=== PATIENT | male | born 1945 | race Caucasian/White ===

== ENCOUNTER 2021-05-19 05:37 | Observation (INO) ==
--- NOTE | 2021-05-19 06:04 | Emergency Department Note ---
History of Present Illness General Chief complaint: Shortness of Breath/Dyspnea Stated complaint: SHORT OF BREATH Time Seen by Provider: 05/19/21 05:48 Source: patient Mode of arrival: EMS Limitations: no limitations History of Present Illness Provider complaint: Shortness of breath Associated symptoms: + cough, + malaise and + shortness of breath; no chest pain, no headaches, no loss of appetite or no syncope Treatments prior to arrival: none This is a 76-year-old male presents emergency department via EMS due to concern for increased shortness of breath. Patient states over the last several weeks he noticed increased shortness of breath with exertion. He states over the last several days he is also noted that he cannot lay flat to sleep as it makes his breathing worse. He denies any accompanying chest pain or prior similar events. Denies any recent URI symptoms, fevers or chills. Patient states he does have cough although it is mostly dry. Patient states he is a former smoker, however does not need to wear oxygen. Patient states he has been more fatigued recently to particularly when he gets out of breath, he feels that he has no energy. Kristal eid denies any syncopal events, although does admit to lightheadedness with the symptoms in addition. Patient denies any palpitations. Patient states he was referred to cardiology by his PCP. His PCP is through the [place] system. He states he does undergo almost annual echoes due to an abnormal heart valve that they are watching. He does not know the results of his last echo which she believes was performed about a month ago. Patient states he has previously had a stress test although cannot recall when that was, has never had a cardiac catheterization. Patient states he does take medication for diabetes, although does not check his blood sugar daily. EMS reported patient was markedly d yspneic and diaphoretic on their arrival, oxygen saturation however was in the low 90s, they did apply 2 L for comfort and patient reported feeling markedly improved with this. Pt seen during a time of high acuity and national emergency pandemic while wearing PPE. Home Medications Medication Instructions Recorded Confirmed Type aspirin 81 mg tablet,delayed 81 mg PO QAM 09/18/18 05/19/21 History release (Aspirin Low Dose) cetirizine 5 mg tablet 5 mg PO QAM 09/20/18 05/19/21 History cholecalciferol (vitamin D3) 50 2,000 unit PO QAM 09/20/18 05/19/21 History mcg (2,000 unit) capsule pravastatin 40 mg tablet 40 mg PO HS 09/20/18 05/19/21 History alogliptin 12.5 mg tablet 12.5 mg PO DAILY 05/19/21 05/19/21 History glipizide 5 mg tablet 5 mg PO BID 05/19/21 05/19/21 History lisinopril 5 mg tablet 5 mg PO DAILY 05/19/21 05/19/21 History metoprolol tartrate 50 mg tablet 25 mg PO BID 05/19/21 05/19/21 History (Lopressor) potassium chloride 20 mEq 20 meq PO BID 05/19/21 05/19/21 History tablet,extended release amlodipine 5 mg tablet 5 mg PO QAM #0 tab 05/20/21 05/19/21 Rx amlodipine 5 mg tablet 10 mg PO QPM #0 tab 05/20/21 05/19/21 Rx furosemide 20 mg tablet (Lasix) 20 mg PO DAILY PRN #20 tab 05/20/21 Rx Allergies Allergy/AdvReac Type Severity Reaction Status Date / Time Influenza Virus Vaccines Allergy Unknown Verified 10/16/18 08:10 atorvastatin AdvReac Cramping Verified 10/16/18 08:10 of the Muscles simvastatin AdvReac Cramping Verified 10/16/18 08:10 of the Muscles Past Med/Surg History Medical History (Updated 05/21/21 @ 14:13 by Stacy Moscoso DO) Cervical pain (neck) CKD (chronic kidney disease) stage 3, GFR 30-59 ml/min Diabetes mellitus, type II Hyperlipidemia Hypertension Nephrolithiasis Osteoarthritis Vision loss of left eye Surgical History H/O eye surgery RETINA REPAIR IN BOTH EYES Hx of cystoscopy STENT INSERTION AND NOW HAS CHRONIC PAIN IN LEFT LEG SINCE SURGERY Family History Father Congestive heart failure Mother Cancer Social History Smoking Status: Never smoker Second Hand Exposure: No; Hx Alcohol Use: No Hx Substance Use: No Preferred Language: Vincentian Communication Ability: Effective Visual Impairment: Partially Limited Kennel Keeper Required: No Beliefs That Will Affect Care: None marital status: Current Living Situation: Spouse current occupational status: retired Feels Safe at Home: Yes Assistive Devices: Glasses Review of Systems A total of 10 systems reviewed and were otherwise negative All systems reviewed & are unremarkable except as noted in HPI & below Physical Exam Vital Signs Vital Signs - 24 hr 05/19/21 05:43 05/19/21 05:44 05/19/21 08:00 Temperature 36.6 C 37.2 C Temperature Source Oral Oral Pulse Rate 75 85 Pulse Rate [Finger] 76 Pulse Rate from SpO2 Sensor 75 Pulse Rhythm Regular Pulse Strength Normal Respiratory Rate 21 20 18 Respiratory Effort / Characteristics Non-Labored Spontaneous Respiratory Depth Normal Respiratory Pattern Regular Blood Pressure 161/85 H 161/85 H Blood Pressure [Left Arm] 149/98 H Blood Pressure Mean 110 110 Blood Pressure Mean [Left Arm] 115 Blood Pressure Position Sitting Pulse Oximetry 95 94 95 Oxygen Delivery Method Room Air Room Air Sepsis Recent Fever Within 48 Hours No Sepsis New/Unexplained Change in Mental Status N/A Sepsis Action Taken by Nursing No Action Required GENERAL: alert, well appearing, well nourished, no distress, non-toxic EYE EXAM: normal conjunctiva, PERRL and EOM's grossly intact OROPHARYNX: no exudate, no erythema, lips, buccal mucosa, and tongue normal and mucous membranes are moist NECK: supple, no nuchal rigidity, no adenopathy, non-tender LUNGS: Clear to auscultation. Normal chest wall mechanics, no w/r/r HEART: no murmurs, S1 normal and S2 normal ABDOMEN: abdomen soft, non-tender, normo-active bowel sounds, no masses, no rebound or guarding. BACK: Back is symmetrical on inspection and there is no deformity, no midline tenderness, no CVA tenderness. SKIN: no rashes and no bruising UPPER EXTREMITIES: upper extremities are grossly normal. FROM, nml pulses b/l. LOWER EXTREMITIES: Trace b/l pitting edema. FROM, nml pulses b/l. NEURO EXAM: Normal sensorium, cranial nerves II-XII grossly intact, normal speech, no gross weakness of arms, no gross weakness of legs. Gross sensation intact. Course Course 814: Discussed with Dr. Velazco. 821: Updated pt and family at bedside. Administered Medications Discontinued Medications Amlodipine Besylate (Amlodipine Besylate 5 Mg Tab) 10 mg PO PM [facility] Stop: 06/18/21 20:59 Last Admin: 05/19/21 21:27 Dose: 10 mg Documented by: [id number] Aspirin (Aspirin 81 Mg Ectab) 81 mg PO QAM [facility] Stop: 06/18/21 11:14 Last Admin: 05/20/21 08:28 Dose: 81 mg Documented by: [id number] Admin: 05/19/21 11:35 Dose: 81 mg Documented by: [id number] Atropine Sulfate (Atropine Sulfate 0.1 Mg/Ml 10ml Syr) Confirm Administered Dose 2 mg IV .STK-MED ONE Stop: 05/20/21 15:00 Last Admin: 05/20/21 15:59 Dose: Not Given Documented by: [id number] Dobutamine HCl (Dobutamine Hcl 12.5 Mg/Ml 20 Ml Vial) Confirm Administered Dose 250 mg IV .STK-MED ONE Stop: 05/20/21 15:00 Last Admin: 05/20/21 15:59 Dose: 1 dose Documented by: [id number] Insulin Aspart (Insulin Aspart 100 Units/Ml 3 Ml Pen) 0 units SC ACHS [facility] Stop: 06/18/21 11:29 Last Admin: 05/20/21 17:31 Dose: 6 units Documented by: [id number] Cosigned by: [id number] Admin: 05/20/21 12:24 Dose: 10 units Documented by: [id number] Cosigned by: [id number] Admin: 05/20/21 08:26 Dose: 6 units Documented by: [id number] Cosigned by: [id number] Admin: 05/19/21 21:26 Dose: Not Given Documented by: [id number] Admin: 05/19/21 17:32 Dose: 3 units Documented by: [id number] Cosigned by: [id number] Admin: 05/19/21 11:55 Dose: 3 units Documented by: [id number] Cosigned by: [id number] Lisinopril (Lisinopril 5 Mg Tab) 5 mg PO DAILY [facility] Stop: 06/18/21 11:14 Last Admin: 05/20/21 08:29 Dose: 5 mg Documented by: [id number] Admin: 05/19/21 11:35 Dose: 5 mg Documented by: [id number] Metoprolol Tartrate (Metoprolol Tartrate 25 Mg Tab) 25 mg PO BID [facility] Stop: 06/18/21 11:14 Last Admin: 05/20/21 08:29 Dose: 25 mg Documented by: [id number] Admin: 05/19/21 21:29 Dose: 25 mg Documented by: [id number] Admin: 05/19/21 11:35 Dose: 25 mg Documented by: [id number] Metoprolol Tartrate (Metoprolol Tartrate 1 Mg/Ml Vial) Confirm Administered Dose 10 mg IV .STK-MED ONE Stop: 05/20/21 15:00 Last Admin: 05/20/21 16:00 Dose: 2.5 mg Documented by: [id number] Potassium Chloride (Potassium Chloride Crtab 20 Meq Tabcr) 20 meq PO BID TRAV Stop: 06/18/21 11:14 Last Admin: 05/20/21 08:29 Dose: 20 meq Documented by: [id number] Admin: 05/19/21 21:28 Dose: 20 meq Documented by: [id number] Admin: 05/19/21 11:36 Dose: 20 meq Documented by: [id number] Pravastatin Sodium (Pravastatin Sod 40 Mg Tab) 40 mg PO HS [facility] Stop: 06/18/21 20:59 Last Admin: 05/19/21 21:28 Dose: 40 mg Documented by: [id number] Medical Decision Making Differential Diagnosis Differential diagnoses includes but is not limited to pneumonia, bronchitis, COPD/Asthma exacerbation, pneumothorax, pulmonary embolism, congestive heart failure, acute coronary syndrome Medical Records Attestation: I reviewed the patient's medical records. Home Medications Current Medication List: was personally reviewed by me Laboratory Data Attestation: I reviewed the patient's lab results. Result diagrams: 05/20/21 06:36 05/20/21 06:36 Lab Results 05/19/21 05/19/21 05/19/21 Range/Units 06:10 06:10 06:22 WBC 10.70 (4.8-10.8) K/uL RBC 5.51 (4.7-6.1) M/uL Hgb 17.5 (14.0-18.0) g/dL Hct 50.4 (42-52) % MCV 91.5 (80-100) fL MCH 31.8 (25-34) pg MCHC 34.7 (32-36) g/dL RDW Std Deviation 48.2 H (36.4-46.3) fL RDW Coeff of Mark 14.3 (11.5-14.5) % Plt Count 283 (130-400) K/uL MPV 9.4 (7.4-10.4) fL Immature Gran % (Auto) 0.8 % Neut % (Auto) 59.9 % Lymph % (Auto) 27.6 % Henry % (Auto) 8.0 % Eos % (Auto) 3.2 % Baso % (Auto) 0.5 % Neut # (Auto) 6.41 (1.4-6.5) K/uL Lymph # (Auto) 2.95 (1.2-3.4) K/uL Henry # (Auto) 0.86 H (0.11-0.59) K/uL Eos # (Auto) 0.34 (0-0.5) K/uL Baso # (Auto) 0.05 (0-0.2) K/uL Immature Gran # (Auto) 0.09 H (0.00-0.02) K/uL D-Dimer (0-500) ug/L FEU Sodium (136-145) mmol/L Potassium (3.5-5.1) mmol/L Chloride (98-107) mmol/L Carbon Dioxide (21-32) mmol/L Anion Gap (3-11) BUN (7-18) mg/dl Creatinine (0.6-1.4) mg/dl Est Cr Clr Drug Dosing ml/min Est GFR ( Amer) ml/min Est GFR (Non-Af Amer) ml/min BUN/Creatinine Ratio (10-20) Glucose (70-99) mg/dl Calcium (8.5-10.1) mg/dl Magnesium (1.8-2.4) mg/dl Total Bilirubin (0.2-1) mg/dl AST (15-37) U/L ALT (12-78) U/L Alkaline Phosphatase (45-117) U/L Troponin I (0-0.045) ng/ml NT-Pro-B Natriuret Pep (0-1800) pg/ml Total Protein (6.4-8.2) gm/dl Albumin (3.4-5.0) gm/dl Globulin (2.5-4.0) gm/dl Albumin/Globulin Ratio (0.9-2) TSH (0.300-4.500) uIu/ml COVID-19 Eval Order Covid19 at [facility] SARS-CoV-2 (PCR) NEGATIVE (Negative) 05/19/21 05/19/21 Range/Units 06:22 07:23 WBC (4.8-10.8) K/uL RBC (4.7-6.1) M/uL Hgb (14.0-18.0) g/dL Hct (42-52) % MCV (80-100) fL MCH (25-34) pg MCHC (32-36) g/dL RDW Std Deviation (36.4-46.3) fL RDW Coeff of Mark (11.5-14.5) % Plt Count (130-400) K/uL MPV (7.4-10.4) fL Immature Gran % (Auto) % Neut % (Auto) % Lymph % (Auto) % Henry % (Auto) % Eos % (Auto) % Baso % (Auto) % Neut # (Auto) (1.4-6.5) K/uL Lymph # (Auto) (1.2-3.4) K/uL Henry # (Auto) (0.11-0.59) K/uL Eos # (Auto) (0-0.5) K/uL Baso # (Auto) (0-0.2) K/uL Immature Gran # (Auto) (0.00-0.02) K/uL D-Dimer 790 H* (0-500) ug/L FEU Sodium 138 (136-145) mmol/L Potassium 3.9 (3.5-5.1) mmol/L Chloride 108 H (98-107) mmol/L Carbon Dioxide 22 (21-32) mmol/L Anion Gap 8.0 (3-11) BUN 19 H (7-18) mg/dl Creatinine 1.92 H (0.6-1.4) mg/dl Est Cr Clr Drug Dosing 36.2 ml/min Est GFR ( Amer) 38.3 ml/min Est GFR (Non-Af Amer) 33.1 ml/min BUN/Creatinine Ratio 9.8 L (10-20) Glucose 158 H (70-99) mg/dl Calcium 8.9 (8.5-10.1) mg/dl Magnesium 2.3 (1.8-2.4) mg/dl Total Bilirubin 0.7 (0.2-1) mg/dl AST 12 L (15-37) U/L ALT 18 (12-78) U/L Alkaline Phosphatase 107 (45-117) U/L Troponin I < 0.015 (0-0.045) ng/ml NT-Pro-B Natriuret Pep 41 (0-1800) pg/ml Total Protein 8.1 (6.4-8.2) gm/dl Albumin 3.8 (3.4-5.0) gm/dl Globulin 4.3 H (2.5-4.0) gm/dl Albumin/Globulin Ratio 0.9 (0.9-2) TSH 2.860 (0.300-4.500) uIu/ml COVID-19 Eval Order SARS-CoV-2 (PCR) (Negative) Imaging Data My Impression: X-ray: I interpreted the following studies. Chest: A single view study of the chest was reviewed and was negative for cardiomegaly, focal infiltrate, effusion, pulmonary edema, or wide mediastinum. Radiologist's Impression: Chest X-Ray 05/19/21 06:05 INDICATION: MN ^cough, sob . TECHNIQUE: Single frontal radiograph of the chest was obtained. Comparison: None available at the time of this dictation. FINDINGS: No lines and tubes are seen. Calcified aortic knob is seen. The lungs are clear. No evidence of pleural effusion or pneumothorax. IMPRESSION: No acute chest disease. ACT 112: Negative or not required by law. Electronically signed by: Lavon Prabhakar M.D. 05/19/2021 6:[address] 05/19/21 09:21 CT chest diagnostic wo con CT DOSE: 708.14 mGy.cm HISTORY: Shortness of breath TECHNIQUE: Multiaxial CT images of the chest were performed without contrast. A dose lowering technique was utilized adhering to the principles of ALARA. COMPARISON: Chest x-ray 05/19/2021. Breast ultrasound 05/11/2015. FINDINGS: No pneumothorax. No pleural effusions. The central airways are patent. Mild centrilobular and paraseptal emphysema. Punctate calcified granuloma within the right lung apex. There is a 4 mm indeterminate pulmonary nodule within the right upper lobe on image 76. Mild dependent changes seen at the lung bases. No focal lung consolidations to suggest pneumonia. No evidence for pulmonary edema. No suspicious lytic or blastic osseous lesions. A 9 mm hypodense lesion within the right hepatic lobe. This is technically too small to characterize. The unenhanced spleen and adrenal glands are unremarkable. Heterogeneous right thyroid lobe is noted. Normal caliber esophagus. No pericardial effusion. The heart is normal in size. Moderate calcified plaque within the coronary arteries and thoracic aorta. There is a normal caliber thoracic aorta. No mediastinal or hilar lymphadenopathy. There is a calcified right hilar lymph node. There is a biopsy clip located within a lobular 2.4 cm left subareolar mass. IMPRESSION: 1. Mild emphysema. 2. A 4 mm indeterminate pulmonary nodule within the right upper lobe. Please refer to the chart below for recommended follow-up. 3. No focal lung consolidations to suggest pneumonia. 4. Redemonstration of the previously biopsied 2.4 cm left subareolar mass. Please refer to below summary of Fleischner criteria recommendations for follow- up of incidental CT nodules (Tj Gu, Guidelines for management of small pulmonary nodules detected on CT scans: A statement from the Fleischner Society, Radiology 237: [phone].) SOLID NODULES Solitary nodule size: <6 mm * Low risk patients: no follow-up needed * high risk patients: optional CT at 12 months Solitary nodule size: 6-8 mm * Low risk patients: follow-up at 6-12 months, then consider further follow-up at 18-24 months * high risk patients: initial follow-up CT at 6-12 months and then at 18-24 months if no change Solitary nodule size: >8 mm * either low or high risk patients - consider follow-up CT at 3 months, and/or CT-PET, and/or biopsy Multiple nodules size: <6 mm * Low risk patients: no routine follow-up * high risk patients: optional CT at 12 months Multiple nodules size: 6-8 mm * Low risk patients: follow-up at 3-6 months, then consider further follow-up at 18-24 months * high risk patients: follow-up at 3-6 months, then at 18-24 months if no change Multiple nodules size: >8 mm * Low risk patients: follow-up at 3-6 months, then consider further follow-up at 18-24 months * high risk patients: follow-up at 3-6 months, then at 18-24 months if no change Note: newly detected indeterminate nodule in persons 35 years of age or older. * Low risk patients: minimal or absent history of smoking and/or other known risk factors * high risk patients: history of smoking or of other known risk factors (e.g. first degree relative with lung cancer, or exposure to asbestos, radon, uranium) * if a nodule up to 8 mm is partly solid or is ground glass further follow-up is required after 24 months to exclude possible slow growing adenocarcinoma (TWILA) SUBSOLID NODULES Solitary pure ground-glass nodule * nodule size <6 mm - no CT follow-up required * nodule size >=6 mm - follow-up CT at 6-12 months, then every 2 years until 5 years Solitary part-solid nodule * nodule size <6 mm - no CT follow-up required * nodule size >=6 mm - follow-up CT at 3-6 months. If unchanged, and solid component remains <6 mm, then annual follow-up for 5 years Multiple subsolid nodules * nodule size <6 mm - follow-up CT at 3-6 months, consider further follow-up at 2 and 4 years if stable * nodule size >=6 mm - follow-up CT at 3-6 months, subsequent management based on the most suspicious nodule(s) ACT 112: Negative or not required by law. Electronically signed by: Geronimo Campos M.D. 05/19/2021 10:05 AM ECG Data Attestation: I personally reviewed and interpreted this ECG as follows: Indication: + chest pain Rate (beats per minute): 71 Rhythm: + normal sinus ECG Intervals/blocks: + Normal QRS and + Normal QT ECG Mclean: + Normal ECG ST segments: + T-wave inversions (V2/3) MDM Narrative This is a 76-year male who presents with increased shortness of breath including dyspnea on exertion and orthopnea. Patient denied chest pain. Patient not overtly hypoxic on EMS arrival although was symptomatically improved with application and by arrival here felt back to normal. Labs drawn and sent which were reassuring, chest x-ray did not reveal any acute pathology including pneumonia or CHF. Patient's troponin negative, EKG reassuring. Patient's creatinine elevated although appears stable compared to prior. Patient did have a recent echo, [facility] Given patient's worsening symptoms over the last several weeks, I am suspect that this may be his anginal equivalent. Although we do not know the extent of his valve dysfunction until we obtain results of his recent echo this patient mention this was a problem also and should be considered. While patient's D-dimer was elevated, he could be considered negative based on an age-adjusted value. I do not otherwise overtly suspect PE. Patient with mild lower extremity edema which she states is chronic and unchanged. Patient made hemodynamically stable throughout, no ectopy or dysrhythmia noted on telemetry. Case discussed with hospitalist for additional evaluation and management. Case management involved to help obtain outpatient records from the [place]. An order was placed for continuous cardiac monitoring. The monitor shows a rate of _68__ with _normal sinus__ rhythm. Impression & Plan Acute dyspnea, Hypertension, CKD (chronic kidney disease) stage 3, GFR 30-59 ml/min, Diabetes mellitus, type II Discharge Plan Visit Data Chief Complaint: Shortness of Breath/Dyspnea Stated Complaint: SHORT OF BREATH ED Provider: Stacy Moscoso Discharge Problem: Acute dyspnea, Hypertension, CKD (chronic kidney disease) stage 3, GFR 30-59 ml/min, Diabetes mellitus, type II Patient Disposition: Admitted As Inpatient Discharge Instructions Interventions: ED Discharge Assessment Last Done: 05/19/21 10:34 Discharge Problem: Hypertension Qualifiers: Hypertension type: primary hypertension Qualified Code(s): I10 - Essential (primary) hypertension CKD (chronic kidney disease) stage 3, GFR 30-59 ml/min Qualifiers: Chronic kidney disease stage 3 subtype: unspecified whether 3a or 3b Qualified Code(s): N18.30 - Chronic kidney disease, stage 3 unspecified Diabetes mellitus, type II Qualifiers: Diabetes mellitus buttermaker insulin use: without buttermaker use Diabetes mellitus complication status: with kidney complications Diabetes mellitus complication detail: with chronic kidney disease Chronic kidney disease stage: unspecified stage Qualified Code(s): E11.22 - Type 2 diabetes mellitus with diabetic chronic kidney disease
[2021-05-19 06:30] LABS: Basophils # (auto) 0.05 K/uL (0-0.2); Basophils % (auto) 0.5 %; Eosinophils # (auto) 0.34 K/uL (0-0.5); Eosinophils % (auto) 3.2 %; Hematocrit (blood only) 50.4 % (42-52); Hemoglobin 17.5 g/dL (14.0-18.0); Immature Granulocytes # (auto) 0.09 K/uL (0.00-0.02); Immature Granulocytes % (auto) 0.8 %; Lymphocytes # (auto) 2.95 K/uL (1.2-3.4); Lymphocytes % (auto) 27.6 %; Mean Corpuscular Hemoglobin 31.8 pg (25-34); Mean Corpuscular Hgb Conc 34.7 g/dL (32-36); Mean Corpuscular Volume 91.5 fL (80-100); Mean Platelet Volume 9.4 fL (7.4-10.4); Monocytes # (auto) 0.86 K/uL (0.11-0.59); Neutrophils # (auto) 6.41 K/uL (1.4-6.5); Neutrophils % (auto) 59.9 %; Platelet Count 283 K/uL (130-400); RDW Coefficient of Variation 14.3 % (11.5-14.5); RDW Standard Deviation 48.2 fL (36.4-46.3); Red Blood Count 5.51 M/uL (4.7-6.1)
[2021-05-19 06:49] LABS: Alanine Aminotransferase 18 U/L (12-78); Albumin Level 3.8 gm/dl (3.4-5.0); Aspartate Aminotransferase 12 U/L (15-37); BUN Creatinine Ratio 9.8 (10-20); Blood Urea Nitrogen 19 mg/dl (7-18); Calcium 8.9 mg/dl (8.5-10.1); Carbon Dioxide 22 mmol/L (21-32); Chloride 108 mmol/L (98-107); Creatinine Clr Calc Pharmacy 36.2 ml/min; Est GFR (African American) 38.3 ml/min; Est GFR (Non-African American) 33.1 ml/min; Glucose 158 mg/dl (70-99); Magnesium 2.3 mg/dl (1.8-2.4); Potassium 3.9 mmol/L (3.5-5.1); Sodium 138 mmol/L (136-145)
--- NOTE | 2021-05-19 06:55 | XRay Report ---
INDICATION: MN ^cough, sob . TECHNIQUE: Single frontal radiograph of the chest was obtained. Comparison: None available at the time of this dictation. FINDINGS: No lines and tubes are seen. Calcified aortic knob is seen. The lungs are clear. No evidence of pleur al effusion or pneumothorax. IMPRESSION: No acute chest disease. ACT 112: Negative or not required by law. Electronically signed by: Lavon Prabhakar M.D. 05/19/2021 6:54 AM
[2021-05-19 06:59] LABS: Albumin Globulin Ratio 0.9 (0.9-2); Alkaline Phosphatase 107 U/L (45-117); Bilirubin,Total 0.7 mg/dl (0.2-1); Globulin 4.3 gm/dl (2.5-4.0); NT Pro B Type Natriuretic Pept 41 pg/ml (0-1800); Total Protein 8.1 gm/dl (6.4-8.2); Troponin I < 0.015 ng/ml (0-0.045)
[2021-05-19 07:52] LABS: D Dimer 790 ug/L FEU (0-500)
--- NOTE | 2021-05-19 10:06 | CT Scan Report ---
CT chest diagnostic wo con CT DOSE: 708.14 mGy.cm HISTORY: Shortness of breath TECHNIQUE: Multiaxial CT images of the chest were performed without contrast. A dose lowering techni que was utilized adhering to the principles of ALARA. COMPARISON: Chest x-ray 05/19/2021. Breast ultrasound 05/11/2015. FINDINGS: No pneumothorax. No pleural effusions. The central airways are patent. Mild centrilobular a nd paraseptal emphysema. Punctate calcified granuloma within the right lung apex. There is a 4 mm ind eterminate pulmonary nodule within the right upper lobe on image 76. Mild dependent changes seen at t he lung bases. No focal lung consolidations to suggest pneumonia. No evidence for pulmonary edema. No suspicious lytic or blastic osseous lesions. A 9 mm hypodense lesion within the right hepatic lobe. This is technically too small to characterize. The unenhanced spleen and adrenal glands are unremarka ble. Heterogeneous right thyroid lobe is noted. Normal caliber esophagus. No pericardial effusion. Th e heart is normal in size. Moderate calcified plaque within the coronary arteries and thoracic aorta. There is a normal caliber thoracic aorta. No mediastinal or hilar lymphadenopathy. There is a calcif ied right hilar lymph node. There is a biopsy clip located within a lobular 2.4 cm left subareolar ma ss. IMPRESSION: 1. Mild emphysema. 2. A 4 mm indeterminate pulmonary nodule within the right upper lobe. Please refer to the chart below for recommended follow-up. 3. No focal lung consolidations to suggest pneumonia. 4. Redemonstration of the previously biopsied 2.4 cm left subareolar mass. Please refer to below summary of Fleischner criteria recommendations for follow-up of incidental CT n odules (Tj Gu, Guidelines for management of small pulmonary nodules detected on CT scans: A sta tement from the Fleischner Society, Radiology 237: [phone].) SOLID NODULES Solitary nodule size: <6 mm * Low risk patients: no follow-up needed * high risk patients: optional CT at 12 months Solitary nodule size: 6-8 mm * Low risk patients: follow-up at 6-12 months, then consider further follow-up at 18-24 months * high risk patients: initial follow-up CT at 6-12 months and then at 18-24 months if no change Solitary nodule size: >8 mm * either low or high risk patients - consider follow-up CT at 3 months, and/or CT-PET, and/or biopsy Multiple nodules size: <6 mm * Low risk patients: no routine follow-up * high risk patients: optional CT at 12 months Multiple nodules size: 6-8 mm * Low risk patients: follow-up at 3-6 months, then consider further follow-up at 18-24 months * high risk patients: follow-up at 3-6 months, then at 18-24 months if no change Multiple nodules size: >8 mm * Low risk patients: follow-up at 3-6 months, then consider further follow-up at 18-24 months * high risk patients: follow-up at 3-6 months, then at 18-24 months if no change Note: newly detected indeterminate nodule in persons 35 years of age or older. * Low risk patients: minimal or absent history of smoking and/or other known risk factors * high risk patients: history of smoking or of other known risk factors (e.g. first degree relative with lung cancer, or exposure to asbestos, radon, uranium) * if a nodule up to 8 mm is partly solid or is ground glass further follow-up is required after 24 m onths to exclude possible slow growing adenocarcinoma (TWILA) SUBSOLID NODULES Solitary pure ground-glass nodule * nodule size <6 mm - no CT follow-up required * nodule size >=6 mm - follow-up CT at 6-12 months, then every 2 years until 5 years Solitary part-solid nodule * nodule size <6 mm - no CT follow-up required * nodule size >=6 mm - follow-up CT at 3-6 months. If unchanged, and solid component remains <6 mm, then annual follow-up for 5 years Multiple subsolid nodules * nodule size <6 mm - follow-up CT at 3-6 months, consider further follow-up at 2 and 4 years if sta ble * nodule size >=6 mm - follow-up CT at 3-6 months, subsequent management based on the most suspiciou s nodule(s) ACT 112: Negative or not required by law. Electronically signed by: Geronimo Campos M.D. 05/19/2021 10:05 AM
[2021-05-19] MEDS ORDERED: GLUCAGON FOR INJ 1 MG VIAL SQ PRN (10:39)
[2021-05-19] MEDS ORDERED: ONDANSETRON INJ 2 MG/ML 2 ML VIAL IV PRN (10:39)
[2021-05-19] MEDS ORDERED: GLUCOSE 40% GEL 15 GM TUBE PO PRN (10:39)
[2021-05-19] MEDS ORDERED: MAGNESIUM HYDROXIDE SUSP 30 ML UDC PO PRN (10:39)
[2021-05-19] MEDS ORDERED: GLUCOSE 10 TABS/TUBE PO PRN (10:39)
[2021-05-19] MEDS ORDERED: ALBUT/IPRATROP 3MG/0.5MG NEB 3 ML VIAL NEB PRN (10:39)
[2021-05-19] MEDS ORDERED: DEXTROSE 50% 50 ML SYRINGE IV PRN (10:39)
[2021-05-19] MEDS ORDERED: POLYETHYLENE (MIRALAX) 17 GM PACK PO PRN (10:39)
[2021-05-19] MEDS ORDERED: CARBOHYDRATES FOR HYPOGLYCEMIA PO PRN (10:39)
[2021-05-19] MEDS ORDERED: ALUMINUM/MAGNESIUM SUSP 30 ML UDC PO PRN (10:39)
[2021-05-19] MEDS ORDERED: ACETAMINOPHEN 325 MG TAB PO PRN (10:39)
--- NOTE | 2021-05-19 10:58 | History & Physical Report ---
Date of Service May 19, 2021 Assessment & Plan (1) Orthopnea: Plan: Attending: Dr. Velazco Patient has no prior history of orthopnea. [facility] Recently was referred to [facility] but has not seen them yet Echocardiogram 04/29/2021 with normal left ventricular systolic function and an LVEF of 55%. Mild MR, trace TR. No mention of aortic valvular disease. No hypotension noted Admit to telemetry Cardiology consult requested Follow ins and outs Patient does not appear to be in CHF or volume overloaded (2) Dyspnea on exertion: Plan: No clear etiology from a pulmonary source. Echocardiogram nonrevealing No history of pulmonary function testing No history of polysomnography exam CT scan with some pulmonary nodules but no overt disease Would recommend outpatient follow-up with pulmonary and sleep medicine to include pulmonary function testing and polysomnography No indication of need for bronchodilators, ICS, anticholinergics at this time Patient not hypoxic but will recommend ambulatory pulse ox while inpatient (3) Pulmonary nodules: Plan: Incidental finding of a 4 mm indeterminate pulmonary nodule within the right upper lobe Patient with history of agent orange exposure and very limited tobacco abuse history Per Fleischner criteria no follow-up as needed for low risk patients (4) Diabetes mellitus, type II: Plan: Poorly controlled with most recent hemoglobin A1c reported at 9.6% Patient recently had glipizide added to his regimen We will repeat hemoglobin A1c while inpatient Hold all oral medications at this time and place patient on NovoLog sliding scale insulin Diabetic diet (5) Hypertension: Plan: Continue amlodipine 10 mg daily, lisinopril 5 mg daily, and metoprolol tartrate 25 mg p.o. twice daily Patient wishes to establish with [facility] (6) Hyperlipidemia: Plan: Continue pravastatin 40 mg at bedtime (7) CKD (chronic kidney disease) stage 3, GFR 30-59 ml/min: Plan: CKD seems slightly improved compared to previous records Creatinine is at baseline at 1.92 Follow serial labs (8) Cervical pain (neck): Plan: No previous work-up Patient does report radiculopathy down his entire left arm No apparent weakness on exam No syncope near presyncope with hyper extension or flexion of the neck We will get plain x-ray series with 3 or 4 view of the cervical spine No appreciation of crepitus with physical examination. No pain with palpation. (9) DVT prophylaxis: Plan: Aspirin 81 mg p.o. daily. No other antiplatelets Will order heparin subcu for DVT prophylaxis while inpatient No indication for other anticoagulation for ACS at this time. Ambulate as tolerated Please refer to Dr. Gary's addendum for further recommendations and corrections Admission and Anticipated Discharge Date Admission Date: May 19, 2021 History of Present Illness Chief Complaint: Orthopnea, dyspnea on exertion Primary Care Provider: Juanita Carlson PA-C Attending: Dr. 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 The patient presents with dyspnea with exertion and orthopnea. He reports that last night at midnight he laid down to sleep and had sudden shortness of breath. He had no chest pain or tightness. He had no pleuritic pain. He had no hemoptysis. No cough. [facility] Report has been requested. The patient denies any exertional chest pain. No claudication. No other signs or symptoms of ACS. The patient's D-dimer was elevated but when adjusted for age is not significant. The patient has no tachycardia, pleuritic chest pain, fever, hemoptysis, or other signs consistent with Wells criteria. He has no prior history of thromboembolic disease or DVT. He denies any asymmetrical edema of the lower ex tremities. He very seldom has any edema of the feet or ankles. Chest x-ray is clear other than possible elevation of right hemidiaphragm and some cardiomegaly. CT chest without contrast is pending Patient is fully vaccinated with Materna COVID-19 vaccination. His second vaccination was 04/25/2021 Patient has no recent travel. No other illness. Patient son does have a history of cardiac disease with 3 MIs and 7 stents beginning in his 40s. Allergies Allergy/AdvReac Type Severity Reaction Status Date / Time Influenza Virus Vaccines Allergy Unknown Verified 10/16/18 08:10 atorvastatin AdvReac Cramping Verified 10/16/18 08:10 of the Muscles simvastatin AdvReac Cramping Verified 10/16/18 08:10 of the Muscles Home Medications Medication Instructions Recorded Confirmed Type aspirin 81 mg tablet,delayed 81 mg PO QAM 09/18/18 05/19/21 History release (Aspirin Low Dose) amlodipine 5 mg tablet 10 mg PO PM 09/20/18 05/19/21 History cetirizine 5 mg tablet 5 mg PO QAM 09/20/18 05/19/21 History cholecalciferol (vitamin D3) 50 2,000 unit PO QAM 09/20/18 05/19/21 History mcg (2,000 unit) capsule pravastatin 40 mg tablet 40 mg PO HS 09/20/18 05/19/21 History alogliptin 12.5 mg tablet 12.5 mg PO DAILY 05/19/21 05/19/21 History amlodipine 5 mg tablet 5 mg PO DAILY 05/19/21 05/19/21 History glipizide 5 mg tablet 5 mg PO BID 05/19/21 05/19/21 History lisinopril 5 mg tablet 5 mg PO DAILY 05/19/21 05/19/21 History metoprolol tartrate 50 mg tablet 25 mg PO BID 05/19/21 05/19/21 History (Lopressor) potassium chloride 20 mEq 20 meq PO BID 05/19/21 05/19/21 History tablet,extended release Past Med/Surg History Medical History (Updated 05/19/21 @ 13:20 by Raulito Wade PA-C) Cervical pain (neck) CKD (chronic kidney disease) stage 3, GFR 30-59 ml/min Diabetes mellitus, type II Hyperlipidemia Hypertension Nephrolithiasis Osteoarthritis Vision loss of left eye Surgical History H/O eye surgery RETINA REPAIR IN BOTH EYES Hx of cystoscopy STENT INSERTION AND NOW HAS CHRONIC PAIN IN LEFT LEG SINCE SURGERY Family History Father Congestive heart failure Mother Cancer Social History Smoking Status: Never smoker Second Hand Exposure: No; Hx Alcohol Use: No Hx Substance Use: No Preferred Language: Slovak Communication Ability: Effective Visual Impairment: Partially Limited Medical Language Specialist Required: No Beliefs That Will Affect Care: None marital status: Current Living Situation: Spouse current occupational status: retired Other Information That Helps Us Care for You: No Feels Safe at Home: Yes Safety Concerns: Feels Safe At This Time Assistive Devices: None Review of Systems Review of Systems: All systems reviewed & are unremarkable except as noted in Subjective Physical Exam Physical Exam: GENERAL : No acute distress EYES: No icterus, gaze conjugate NOSE: No evidence of epistaxis MOUTH: No lesions or candidiasis NECK: Supple LUNGS: CTA B/L, no wheezes, rales or rhonchi HEART: Regular, rate controlled ABDOMEN: Soft, NT, ND, BS Present EXTREMITIES: No LE edema, pedal pulses intact NEURO: A&OX3 Results & Data Results & Data ([facility]) Vital Signs (Past 12 Hours) Vital Signs Temp Pulse Pulse Resp BP BP Pulse Ox 05/19/21 10:00 37.1 C 101 H 20 139/82 95 05/19/21 08:00 37.2 C 76 18 149/98 H 95 05/19/21 05:44 36.6 C 85 20 161/85 H 94 05/19/21 05:43 75 21 161/85 H 95 Laboratory Results 05/19/21 06:22 05/19/21 06:22 05/19/21 06:22 Troponin I < 0.015 Diagnostic Findings Chest X-Ray 05/19/21 06:05 INDICATION: MN ^cough, sob . TECHNIQUE: Single frontal radiograph of the chest was obtained. Comparison: None available at the time of this dictation. FINDINGS: No lines and tubes are seen. Calcified aortic knob is seen. The lungs are clear. No evidence of pleural effusion or pneumothorax. IMPRESSION: No acute chest disease. ACT 112: Negative or not required by law. Electronically signed by: Lavon Prabhakar M.D. 05/19/2021 6:[address] 05/19/21 09:21 CT chest diagnostic wo con CT DOSE: 708.14 mGy.cm HISTORY: Shortness of breath TECHNIQUE: Multiaxial CT images of the chest were performed without contrast. A dose lowering technique was utilized adhering to the principles of ALARA. COMPARISON: Chest x-ray 05/19/2021. Breast ultrasound 05/11/2015. FINDINGS: No pneumothorax. No pleural effusions. The central airways are patent. Mild centrilobular and paraseptal emphysema. Punctate calcified granuloma within the right lung apex. There is a 4 mm indeterminate pulmonary nodule within the right upper lobe on image 76. Mild dependent changes seen at the lung bases. No focal lung consolidations to suggest pneumonia. No evidence for pulmonary edema. No suspicious lytic or blastic osseous lesions. A 9 mm hypodense lesion within the right hepatic lobe. This is technically too small to characterize. The unenh anced spleen and adrenal glands are unremarkable. Heterogeneous right thyroid lobe is noted. Normal caliber esophagus. No pericardial effusion. The heart is normal in size. Moderate calcified plaque within the coronary arteries and thoracic aorta. There is a normal caliber thoracic aorta. No mediastinal or hilar lymphadenopathy. There is a calcified right hilar lymph node. There is a biopsy clip located within a lobular 2.4 cm left subareolar mass. IMPRESSION: 1. Mild emphysema. 2. A 4 mm indeterminate pulmonary nodule within the right upper lobe. Please refer to the chart below for recommended follow-up. 3. No focal lung consolidations to suggest pneumonia. 4. Redemonstration of the previously biopsied 2.4 cm left subareolar mass. Please refer to below summary of Fleischner criteria recommendations for follow- up of incidental CT nodules (Tj Gu, Guidelines for management of small pulmonary nodules detected on CT scans: A statement from the Fleischner Society, Radiology 237: [phone].) SOLID NODULES Solitary nodule size: <6 mm * Low risk patients: no follow-up needed * high risk patients: optional CT at 12 months Solitary nodule size: 6-8 mm * Low risk patients: follow-up at 6-12 months, then consider further follow-up at 18-24 months * high risk patients: initial follow-up CT at 6-12 months and then at 18-24 months if no change Solitary nodule size: >8 mm * either low or high risk patients - consider follow-up CT at 3 months, and/or CT-PET, and/or biopsy Multiple nodules size: <6 mm * Low risk patients: no routine follow-up * high risk patients: optional CT at 12 months Multiple nodules size: 6-8 mm * Low risk patients: follow-up at 3-6 months, then consider further follow-up at 18-24 months * high risk patients: follow-up at 3-6 months, then at 18-24 months if no change Multiple nodules size: >8 mm * Low risk patients: follow-up at 3-6 months, then consider further follow-up at 18-24 months * high risk patients: follow-up at 3-6 months, then at 18-24 months if no change Note: newly detected indeterminate nodule in persons 35 years of age or older. * Low risk patients: minimal or absent history of smoking and/or other known risk factors * high risk patients: history of smoking or of other known risk factors (e.g. first degree relative with lung cancer, or exposure to asbestos, radon, uranium) * if a nodule up to 8 mm is partly solid or is ground glass further follow-up is required after 24 months to exclude possible slow growing adenocarcinoma (TWILA) SUBSOLID NODULES Solitary pure ground-glass nodule * nodule size <6 mm - no CT follow-up required * nodule size >=6 mm - follow-up CT at 6-12 months, then every 2 years until 5 years Solitary part-solid nodule * nodule size <6 mm - no CT follow-up required * nodule size >=6 mm - follow-up CT at 3-6 months. If unchanged, and solid component remains <6 mm, then annual follow-up for 5 years Multiple subsolid nodules * nodule size <6 mm - follow-up CT at 3-6 months, consider further follow-up at 2 and 4 years if stable * nodule size >=6 mm - follow-up CT at 3-6 months, subsequent management based on the most suspicious nodule(s) ACT 112: Negative or not required by law. Electronically signed by: Geronimo Campos M.D. 05/19/2021 10:05 AM Code Status & VTE Plan Code Status Full resuscitation: Level I VTE Prophylaxis Plan VTE Prophylaxis will be ordered: Yes PG Care Time/CCT Total # of Minutes Spent Total Time Spent with Patient: Total time spent is greater than 50% in coordination of care (as documented) at patient's floor/unit and/or counseling patient: 60 minutes Coding Level of Care Code INT OBSERVATION CARE 50M LVL 2 Diagnoses Orthopnea R06.01 Dyspnea on exertion R06.00 Pulmonary nodules R91.8 Diabetes mellitus, type II E11.9 Hypertension I10 Hyperlipidemia E78.5 CKD (chronic kidney disease) stage 3, GFR 30-59 ml/min N18.3 DVT prophylaxis Z29.9 Cervical pain (neck) M54.2 Time Spent (min) 60
[2021-05-19] MEDS ORDERED: amLODIPine BESYLATE 5 MG TAB PO SCH ×2 (11:15→21:00)
[2021-05-19] MEDS: lisinopril 5 MG TAB PO SCH (11:35)
[2021-05-19] MEDS: METOPROLOL TARTRATE 25 MG TAB PO SCH ×2 (11:35→21:29)
[2021-05-19] MEDS: ASPIRIN 81 MG ECTAB PO SCH (11:35)
[2021-05-19] MEDS: POTASSIUM CHLORIDE CRTAB 20 MEQ TABCR PO SCH ×2 (11:36→21:28)
[2021-05-19] MEDS: INSULIN ASPART 100 UNITS/ML 3 ML PEN SC SCH ×3 (11:55→21:26)
--- NOTE | 2021-05-19 13:16 | XRay Report ---
INDICATION: MN ^Cervical pain with left radiculopathy TECHNIQUE: AP, lateral, and open-jaw images of the cervical spine were obtained. COMPARISON: None. FINDINGS: The cervical spine is visualized from C1-C5. No fractures or subluxations are identified. Degenerativ e changes including disc space narrowing, endplate sclerosis, and osteophyte formation are most promi nent at C3-C4 and C4-C5. The alignment is anatomic. Prevertebral soft tissues are within normal limit s. IMPRESSION: Limited exam due to patient positioning limiting evaluation of the lower cervical spine. Disc space n arrowing and osteophyte formation are seen most prominently at C3-C4 and C4-C5. ACT 112: Negative or not required by law. Electronically signed by: Lavon Prabhakar M.D. 05/19/2021 1:15 PM
--- NOTE | 2021-05-19 17:24 | Cardiology Consultation ---
Date of Consultation May 19, 2021 Assessment & Plan (1) Orthopnea: 1. Breathing difficulty: With unclear what caused the patient's symptoms last evening. It is unlikely this represented pulmonary congestion as no specific treatment was provided And his symptoms resolved only with s upplemental oxygen. He is known to have preserved LV systolic function. There is no evidence of pulmonary vascular congestion on imaging. N terminal proBNP was normal. Suppose it is possible that this was a transient arrhythmia, although there was no documentation of any abnormal heart rates or sense of palpitation on the patient's part. It seemed to be an element of anxiety associated with the episode. Do not think there is any objective findings to suggest this is cardiac in nature. I do not think I would pursue any additional cardiac testing. History of Present Illness Reason for Consultation: Orthopnea Requesting Physician: Mauro Attending Physician: Nick Velazco History of Present Illness patient is a 76-year-old gentleman without a known history of cardiac disease presented to the emergency room after he had difficulty sleeping. It seems to last evening in the patient attempted to go to bed and he had difficulty lying flat. His symptoms included breathing difficulty. Sat upright in a chair but continued to have some symptoms of breathing difficulty. Eventually he sought attention in the emergency room. He states that EN route to the emergency room he was administered oxygen by EMS and is improved symptoms. They have not recurred. He states that generally he is able to sleep flat. He is not generally have difficulty with sleep. He does have an element of mild dyspnea with activity. However, he is very sedentary due to caregiving responsibilities for his . He did not endorse symptoms of exertional chest discomfort. He did not describe dizziness or lightheadedness. He has not been aware of any palpitations. He states that has been under lot of stress recently primarily due to the caregiving responsibilities for his . Allergies Allergy/AdvReac Type Severity Reaction Status Date / Time Influenza Virus Vaccines Allergy Unknown Verified 10/16/18 08:10 atorvastatin AdvReac Cramping Verified 10/16/18 08:10 of the Muscles simvastatin AdvReac Cramping Verified 10/16/18 08:10 of the Muscles Home Medications Medication Instructions Recorded Confirmed Type aspirin 81 mg tablet,delayed 81 mg PO QAM 09/18/18 05/19/21 History release (Aspirin Low Dose) amlodipine 5 mg tablet 10 mg PO PM 09/20/18 05/19/21 History cetirizine 5 mg tablet 5 mg PO QAM 09/20/18 05/19/21 History cholecalciferol (vitamin D3) 50 2,000 unit PO QAM 09/20/18 05/19/21 History mcg (2,000 unit) capsule pravastatin 40 mg tablet 40 mg PO HS 09/20/18 05/19/21 History alogliptin 12.5 mg tablet 12.5 mg PO DAILY 05/19/21 05/19/21 History amlodipine 5 mg tablet 5 mg PO DAILY 05/19/21 05/19/21 History glipizide 5 mg tablet 5 mg PO BID 05/19/21 05/19/21 History lisinopril 5 mg tablet 5 mg PO DAILY 05/19/21 05/19/21 History metoprolol tartrate 50 mg tablet 25 mg PO BID 05/19/21 05/19/21 History (Lopressor) potassium chloride 20 mEq 20 meq PO BID 05/19/21 05/19/21 History tablet,extended release Patient History Medical History (Updated 05/19/21 @ 13:20 by Raulito Wade PA-C) Cervical pain (neck) CKD (chronic kidney disease) stage 3, GFR 30-59 ml/min Diabetes mellitus, type II Hyperlipidemia Hypertension Nephrolithiasis Osteoarthritis Vision loss of left eye Surgical History H/O eye surgery RETINA REPAIR IN BOTH EYES Hx of cystoscopy STENT INSERTION AND NOW HAS CHRONIC PAIN IN LEFT LEG SINCE SURGERY Family History Father Congestive heart failure Mother Cancer Social History Smoking Status: Never smoker Second Hand Exposure: No; Hx Alcohol Use: No Hx Substance Use: No Preferred Language: Chinese Communication Ability: Effective Visual Impairment: Partially Limited 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 Mood and affect appeared normal. He answered all questions appropriately. HEENT: Pupils are equal and reactive to light and accommodation. Extraocular movements are intact. The sclerae are anicteric. poor dentition Neuro: Cranial nerves intact Neck: Patient's neck is supple. He has palpable carotid pulses bilaterally without bruits on auscultation. There is no evidence of jugular venous distention. The thyroid is not enlarged. Lungs: Clear to auscultation bilaterally. He has good air movement without use of accessory muscles. No rales wheezes or rhonchi. Cardiac: Heart demonstrates a regular rate and rhythm. Normal S1 and S2. No murmurs on examination. Pulses: The patient has palpable radial pulses bilaterally that are equal in intensity Extremities: There was no evidence of hypoperfusion. There is no cyanosis or clubbing. There is no edema. Skin: I did not appreciate any rashes on examination today. Results & Data ([facility]) Vital Signs (Past 12 Hours) Vital Signs Temp Pulse Pulse Resp BP BP Pulse Ox 05/19/21 15:26 36.9 C 60 18 143/83 H 94 05/19/21 14:57 68 05/19/21 11:06 79 05/19/21 11:00 36.8 C 70 16 158/75 H 97 05/19/21 10:00 37.1 C 101 H 20 139/82 95 05/19/21 08:00 37.2 C 76 18 149/98 H 95 05/19/21 05:44 36.6 C 85 20 161/85 H 94 05/19/21 05:43 75 21 161/85 H 95 Laboratory Results Abnormal Lab Results 05/19/21 05/19/21 05/19/21 06:10 06:10 06:22 WBC 10.70 RBC 5.51 Hgb 17.5 Hct 50.4 MCV 91.5 MCH 31.8 MCHC 34.7 RDW Std Deviation 48.2 H RDW Coeff of Mark 14.3 Plt Count 283 MPV 9.4 Immature Gran % (Auto) 0.8 Neut % (Auto) 59.9 Lymph % (Auto) 27.6 [place] % (Auto) 8.0 Eos % (Auto) 3.2 Baso % (Auto) 0.5 Neut # (Auto) 6.41 Lymph # (Auto) 2.95 [place] # (Auto) 0.86 H Eos # (Auto) 0.34 Baso # (Auto) 0.05 Immature Gran # (Auto) 0.09 H D-Dimer Sodium Potassium Chloride Carbon Dioxide Anion Gap BUN Creatinine Est Cr Clr Drug Dosing Est GFR ( Amer) Est GFR (Non-Af Amer) BUN/Creatinine Ratio Glucose POC Glucose Calcium Magnesium Total Bilirubin AST ALT Alkaline Phosphatase Troponin I NT-Pro-B Natriuret Pep Total Protein Albumin Globulin Albumin/Globulin Ratio TSH COVID-19 Eval Order Covid19 at [facility] SARS-CoV-2 (PCR) NEGATIVE 05/19/21 05/19/21 05/19/21 06:22 07:23 11:38 WBC RBC Hgb Hct MCV MCH MCHC RDW Std Deviation RDW Coeff of Mark Plt Count MPV Immature Gran % (Auto) Neut % (Auto) Lymph % (Auto) [place] % (Auto) Eos % (Auto) Baso % (Auto) Neut # (Auto) Lymph # (Auto) [place] # (Auto) Eos # (Auto) Baso # (Auto) Immature Gran # (Auto) D-Dimer 790 H* Sodium 138 Potassium 3.9 Chloride 108 H Carbon Dioxide 22 Anion Gap 8.0 BUN 19 H Creatinine 1.92 H Est Cr Clr Drug Dosing 36.2 Est GFR ( Amer) 38.3 Est GFR (Non-Af Amer) 33.1 BUN/Creatinine Ratio 9.8 L Glucose 158 H POC Glucose 162 H Calcium 8.9 Magnesium 2.3 Total Bilirubin 0.7 AST 12 L ALT 18 Alkaline Phosphatase 107 Troponin I < 0.015 NT-Pro-B Natriuret Pep 41 Total Protein 8.1 Albumin 3.8 Globulin 4.3 H Albumin/Globulin Ratio 0.9 TSH 2.860 COVID-19 Eval Order SARS-CoV-2 (PCR) 05/19/21 16:27 WBC RBC Hgb Hct MCV MCH MCHC RDW Std Deviation RDW Coeff of Mark Plt Count MPV Immature Gran % (Auto) Neut % (Auto) Lymph % (Auto) [place] % (Auto) Eos % (Auto) Baso % (Auto) Neut # (Auto) Lymph # (Auto) [place] # (Auto) Eos # (Auto) Baso # (Auto) Immature Gran # (Auto) D-Dimer Sodium Potassium Chloride Carbon Dioxide Anion Gap BUN Creatinine Est Cr Clr Drug Dosing Est GFR ( Amer) Est GFR (Non-Af Amer) BUN/Creatinine Ratio Glucose POC Glucose 113 H Calcium Magnesium Total Bilirubin AST ALT Alkaline Phosphatase Troponin I NT-Pro-B Natriuret Pep Total Protein Albumin Globulin Albumin/Globulin Ratio TSH COVID-19 Eval Order SARS-CoV-2 (PCR) Diagnostic Findings patient underwent a recent echocardiogram at the [facility]. This revealed preserved LV systolic function with ejection fraction of 50-55%. Trace pericardial effusion. PG Care Time/CCT Total # of Minutes Spent Total Time Spent with Patient: Total time spent is greater than 50% in coordination of care (as documented) at patient's floor/unit and/or counseling patient: Coding Level of Care Code 51530 Initial Inpt Care Lvl 3 Diagnoses Orthopnea R06.01
--- NOTE | 2021-05-19 18:29 | Electrocardiogram Report ---
Test Reason : Blood Pressure : / mmHG Vent. 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
[2021-05-19 18:53] LABS: C Reactive Protein 0.76 mg/dl (0-0.29); Troponin I < 0.015 ng/ml (0-0.045)
--- NOTE | 2021-05-19 20:23 | Ultrasound Report ---
BILATERAL LOWER EXTREMITY VENOUS DOPPLER HISTORY: Acute pain and swelling of the lower legs dyspnea, mild edema; eval DVT COMPARISON STUDY: None. FINDINGS: There is normal compressibility, flow, and augmentation within the bilateral lower extremit y deep venous systems. IMPRESSION: No DVT within the right or left lower extremity. ACT 112: Negative or not required by law. Electronically signed by: Morris Jesus M.D. 05/19/2021 8:21 PM
[2021-05-19] MEDS ORDERED: PRAVASTATIN SOD 40 MG TAB PO SCH (21:00)
[2021-05-20 06:56] LABS: Basophils # (auto) 0.05 K/uL (0-0.2); Basophils % (auto) 0.5 %; Eosinophils # (auto) 0.41 K/uL (0-0.5); Eosinophils % (auto) 3.9 %; Hematocrit (blood only) 48.9 % (42-52); Hemoglobin 16.7 g/dL (14.0-18.0); Immature Granulocytes # (auto) 0.06 K/uL (0.00-0.02); Immature Granulocytes % (auto) 0.6 %; Lymphocytes # (auto) 3.25 K/uL (1.2-3.4); Mean Corpuscular Hemoglobin 31.6 pg (25-34); Mean Corpuscular Hgb Conc 34.2 g/dL (32-36); Mean Corpuscular Volume 92.4 fL (80-100); Mean Platelet Volume 9.2 fL (7.4-10.4); Monocytes % (auto) 7.6 %; Neutrophils # (auto) 5.91 K/uL (1.4-6.5); Neutrophils % (auto) 56.4 %; Platelet Count 278 K/uL (130-400); RDW Coefficient of Variation 14.4 % (11.5-14.5); RDW Standard Deviation 48.6 fL (36.4-46.3); Red Blood Count 5.29 M/uL (4.7-6.1); White Blood Count 10.48 K/uL (4.8-10.8)
[2021-05-20 07:31] LABS: BUN Creatinine Ratio 11.4 (10-20); Calcium 9.3 mg/dl (8.5-10.1); Creatinine Clr Calc Pharmacy 38.9 ml/min; Est GFR (Non-African American) 36.2 ml/min; Potassium 4.2 mmol/L (3.5-5.1)
[2021-05-20 07:42] LABS: Estimated Average Glucose 174 mg/dl; Hemoglobin A1C 7.7 % (4.5-5.6)
[2021-05-20] MEDS: INSULIN ASPART 100 UNITS/ML 3 ML PEN SC SCH ×3 (08:26→17:31)
[2021-05-20] MEDS: ASPIRIN 81 MG ECTAB PO SCH (08:28)
[2021-05-20] MEDS: lisinopril 5 MG TAB PO SCH (08:29)
[2021-05-20] MEDS: METOPROLOL TARTRATE 25 MG TAB PO SCH (08:29)
[2021-05-20] MEDS: POTASSIUM CHLORIDE CRTAB 20 MEQ TABCR PO SCH (08:29)
--- NOTE | 2021-05-20 11:39 | XRay Report ---
XR chest 1V portable CLINICAL HISTORY: Dyspnea with exertion COMPARISON STUDY: May 19, 2021 FINDINGS: No pneumothorax. No definite pleural effusion is seen however evaluation is limited because right costophrenic angle i s outside of [id number]. Mild reticular opacities are seen at bilateral bases and slightly worsened since prior. Cardiomediastinal silhouette is within upper limits of normal. Evaluation is suboptimal due to rotati on. No significant pulmonary vascular congestion.. Osseous structures: unremarkable IMPRESSION: 1. Mild interval worsening of reticular opacities at bilateral lower lungs, might represent pulmonar y edema or atelectasis. ACT 112: Negative or not required by law. The above report was generated using voice recognition software. It may contain grammatical, syntax o r spelling errors. Electronically signed by: Darlene Carlin DO 05/20/2021 11:38 AM
[2021-05-20] MEDS ORDERED: METOPROLOL TARTRATE 1 MG/ML VIAL IV ONE (14:59)
[2021-05-20] MEDS ORDERED: DOBUTamine HCL 12.5 MG/ML 20 ML VIAL IV ONE (14:59)
[2021-05-20] MEDS ORDERED: ATROPINE SULFATE 0.1 MG/ML 10ML SYR IV ONE (14:59)
--- NOTE | 2021-05-20 15:28 | Electrocardiogram Report ---
Test Reason : Blood Pressure : / mmHG Vent. 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
--- NOTE | 2021-05-20 16:48 | XCELERA ---
[id number]
--- NOTE | 2021-05-20 17:50 | Discharge Summary ---
Date of Service May 20, 2021 Admission HPI Per Admitting Provider Attending: Dr. 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 The patient presents with dyspnea with exertion and orthopnea. He reports that last night at midnight he laid down to sleep and had sudden shortness of breath. He had no chest pain or tightness. He had no pleuritic pain. He had no hemoptysis. No cough. [facility] Report has been requested. The patient denies any exertional chest pain. No claudication. No other signs or symptoms of ACS. The patient's D-dimer was elevated but when adjusted for age is not significant. The patient has no tachycardia, pleuritic chest pain, fever, hemoptysis, or other signs consistent with Wells criteria. He has no prior history of thromboembolic disease or DVT. He denies any asymmetrical edema of the lower extremities. He very seldom has any edema of the feet or ankles. Chest x-ray is clear other than possible elevation of right hemidiaphragm and some cardiomegaly. CT chest without contrast is pending Patient is fully vaccinated with Materna COVID-19 vaccination. His second vaccination was 04/25/2021 Patient has no recent travel. No other illness. Patient son does have a history of cardiac disease with 3 MIs and 7 stents beginning in his 40s. Discharge Data Allergies Allergy/AdvReac Type Severity Reaction Status Date / Time Influenza Virus Vaccines Allergy Unknown Verified 10/16/18 08:10 atorvastatin AdvReac Cramping Verified 10/16/18 08:10 of the Muscles simvastatin AdvReac Cramping Verified 10/16/18 08:10 of the Muscles Consultations 05/19/21 08:46 ED Decision to Admit Stat 05/19/21 09:21 Consult Health Information Management Stat 05/19/21 10:39 Consult Cardiology Routine 05/20/21 17:50 Consult Lung Nodule Program Routine Ordered Studies 05/19/21 09:21 CT chest diagnostic wo con Stat 05/19/21 19:31 US venous doppler LE Routine Discharge Plan Discharge Items Patient Disposition: Home - Self-Care Reason For Visit: Shortness of breath, Sweats, Left Neck Pain Discharge Diagnosis: Shortness of breath, sweats, left neck pain - exact etiology uncertain. CT chest with mild emphysema changes but no pneumonia or fluid. Ultrasound of legs did NOT show blood clots. Stress test was normal/negative. Telemetry (heart monitoring) did not show abnormal heart rhythms. Activity: Resume your previous activity Non-emergency contact: Primary Care Provider Call non-emergency contact if: you have any medication questions, your symptoms worsen and you have a fever Follow-up/Referrals: Dipak Jacobs MD [Physician] - (we will call you next week with a follow-up visit with [facility] ) Juanita Carlson PA-C [Primary Care Provider] - (see Ms Carlson within 1 week ) Diet: Carb Consistent or DM2 and Heart Healthy Addtl Attending Provider Instructions: Mr Uriarte, You were admitted to [facility] after you had an episode of shortness of breath when you were attempting to lay down in your bed. You also mentioned you had a discomfort in your left neck as well as sweats during the episode. The episode was improved with oxygen placed by EMS. We performed multiple tests including CT chest, dopplers of the legs, EKGs, blood work, chest x-rays, and a stress test. The CT chest showed very mild changes of emphysema but no fluid or pneumonia. Your blood work was unremarkable including blood work for the heart (normal). On 05/20 you had a stress test that was normal. We did obtain your [facility] (heart [facility] recently and this was normal. The exact cause of your symptoms is uncertain. There is a very small chance that the stress test was falsely negative (meaning that the stress test gave erroneous results). Fortunately this is not common. Recommendations - 1. please check your weight every morning on the same scale. Write these down in a notebook and please show them to your family doctor and the bull wheel worker. If you are indeed taking on fluid it will show in your weight. A rapid weight gain of more than 2-3 pounds in 1-2 days may suggest fluid retention. 2. if you see fluid/edema in your feet/ankles/legs you can take a dose of furosemide water pill every morning until that edema is gone. Only take the medication if you see fluid build-up in the legs. 3. if you keep having spells of shortness of breath you may need additional tests. Thus, please be certain to follow-up with the bull wheel worker. 4. finally, you have a tiny nodule (4mm) in the top of your right lung. You will need follow-up for this. I am going to enroll you in the [facility] Nodule Program to follow this tiny spot. Most nodules are BENIGN (not harmful). Follow-up - see separate section Return to [facility] if - * you have worsening shortness of breath * you have chest pains * you have difficulty breathing while trying to sleep * you have severe edema of your legs * any other concerns It was our pleasure to care for you at [facility]! -Dr Velazco Pending Studies at Discharge: No Stand-Alone Forms: My [facility], Smoking Cessation Medications and DC Order Prescriptions: New furosemide [Lasix] 20 mg tablet 20 mg PO DAILY PRN (Reason: edema (swelling in feet/legs)) Qty: 20 RF: 0 Continued aspirin [Aspirin Low Dose] 81 mg Tablet,Delayed Release (Dr/Ec) 81 mg PO QAM RF: 0 amlodipine 5 mg Tablet 10 mg PO PM RF: 0 cholecalciferol (vitamin D3) 2,000 unit Capsule 2,000 unit PO QAM RF: 0 cetirizine 5 mg Tablet 5 mg PO QAM RF: 0 pravastatin 40 mg Tablet 40 mg PO HS RF: 0 amlodipine 5 mg Tablet 5 mg PO DAILY RF: 0 metoprolol tartrate [Lopressor] 50 mg Tablet 25 mg PO BID RF: 0 lisinopril 5 mg Tablet 5 mg PO DAILY RF: 0 glipizide 5 mg Tablet 5 mg PO BID RF: 0 alogliptin 12.5 mg Tablet 12.5 mg PO DAILY RF: 0 potassium chloride 20 mEq Tablet Extended Release 20 meq PO BID RF: 0 Changed amlodipine 5 mg Tablet 5 mg PO QAM Qty: 0 RF: 0 amlodipine 5 mg Tablet 10 mg PO QPM Qty: 0 RF: 0 Discharge Orders: Discharge Order (Routine); Ordered 05/20/21 Ordered By: Nick Glasgow/Other Patient Handouts: A1C, High Blood Sugar (Hyperglycemia), Hypoglycemia (Low Blood Sugar), Managing Type 2 Diabetes, ED Pulmonary Nodule, Solitary Admission Data Admit Date/Time: 05/19/21 09:21 Attending Provider: Nick Velazco Admit Provider: Nick Velazco Primary Care Provider: Juanita Carlson Other Providers: [facility] ; Nick Velazco ; Ishan Klein ; Milind Ortiz ; Nigel Law ; Ector Caballero ; Matthew Zaragoza Jr ; Ramses Stewart ; Stacie Felder ; Orquidea Barker ; Dipak Simon ; Dipak Jacobs ; Jose Florian ; Mamta Lopez ; Salomón Tafoya ; Tyson Bonilla ; Colt Powers Other Interventions: Discharge Summary Assessment (RN) Last Done: 05/20/21 17:48 Coding
--- NOTE | 2021-05-20 17:59 | Electrocardiogram Report ---
Test Reason : Blood Pressure : / mmHG Vent. 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
== END 2021-05-20 18:00 | disposition home or self-care (01) ==
LOC: 2N 05:37 → ED 05:37 → 2N 10:34

== ENCOUNTER 2021-08-22 12:06 | Observation (INO) ==
[2021-08-22] MEDS ORDERED: ASPIRIN 81 MG CHEW PO STA (12:14)
--- NOTE | 2021-08-22 12:18 | Emergency Department Note ---
Impression & Plan Substernal precordial chest pain, SOB (shortness of breath) ED Provider Note Name: AMI ALONSO Age: 76 Sex: M Arrives Via: Ambulance Informant: Patient ED Provider: Miguel Talley MD Chief Complaint: chest pain Impression: As Per Impressions above Medical Decision Making: This is a 76-year-old male who arrives for evaluation of substernal chest pain and some mild shortness of breath. This started this morning and EMS was called. He was placed on nasal cannula oxygen with resolution of his symptoms. He states he feels much better now while breathing on nasal cannula oxygen. Take him off oxygen he is O2 drops to 92% though there is no further symptoms in the brief time off [place] O2. EKG evaluated and is unremarkable. Initial labs and chest x-ray are unremarkable. He was given ASA 324 mg p.o. his Covid testing is negative. Patient with a history of CKD hypertension type 2 diabetes and hyperlipidemia, though he reports no history of CAD no previous stenting. Given patient's substernal chest pressure this morning and has multiple risk factors he will need further cardiac rule out and thus hospitalist was consulted. Unclear etiology of his chest pain or shortness of breath with mild hypoxia however he does not appear to be acutely fluid overloaded he has no elevated troponin and is no evidence of PE/DVT at this time. Prior Medical Record and Triage/Nursing Notes reviewed by Me Additional history obtained from chest pain Differentials:Cardiac ischemia, aortic dissection, pulmonary embolism, pneumothorax, pneumonia, pericarditis, myocarditis, esophageal rupture, GERD, cholecystitis, pancreatitis, musculoskeletal, as well as other pathologies. Vital Signs: reviewed and remarkable for no significant abnormalities Interventions: ASA 324mg PO Labs:Reviewed and remarkable for no significant abnormalities Imaging:See Below EKG:Per My Interpretation: Indication Chest Pain: NSR 65 bpm, qtc 405. No Ectopy. No Ischemia. Compared to EKG 07/27/21, no significant changes though ectopy has resolved. Cardiac/Tele Monitoring: Cardiac Monitoring: An Order was placed for continuous cardiac monitoring. The monitor shows a rate of 60 with a normal sinus rhythm. Consults:Dr Rodney GRANT Hospitalist Plan: Disposition:Hospitalization. Condition: Good History of Present Illness:This is a 76-year-old gentleman who arrives for ev aluation of chest pain. Patient notes he has been slightly weak and tired the last few days without specific complaints. This morning he started developing substernal chest pressure. He had no radiation of pain. He notes this was associated with mild shortness of breath and feeling like he could not catch his breath. He relates all this started after using his Combivent inhaler which he had started on a few days ago. Patient denies any current chest pain or shortness of breath. Patient states symptoms resolved once EMS placed him on nasal cannula oxygen. Per EMS his oxygen was 92 to 94% prior to oxygen placement. Patient denies oxygen use regularly. He does note a history of COPD but states this seems different than that. Patient denies any history of CAD nor cardiac surgery. Patient does note that has been short of breath with exertion recently. He did get treatment last month for COPD exacerbation with azithromycin and prednisone with some good effect. Patient denies any fevers, chills, palpitations, syncope, headache, back pain, abdominal pain, nausea, vomiting, urinary, bowel symptoms nor any other symptoms. Other than the Combivent he does not recall any recent new medications. This morning he notes that rest and oxygen made symptoms better and that exertion made symptoms worse. Patient denies any recent falls, trauma, injuries. Patient denies any leg swe lling calf pain or other findings/symptoms of DVT/PE. Patient states he is Covid vaccinated with no known Covid exposures. ROS: See above HPI for pertinent positives & negatives. A total of 10 systems reviewed and were otherwise negative. Past Medical History:See Below Past Surgical History:See Below Family History:See Below Social History:See Below Home Medications:See Below Allergies:See Below Vitals:Blood Pressure: 153/88, Pulse 70, RR 16, T 36.5C, O2 98% on 2L NC (92% on RA at rest) Physical Exam: GENERAL: Patient is tired appearing and in minimal distress. EYES: No scleral icterus, unremarkable pupils. ENT: Mucous membranes moist, no nasal congestion. NECK: No masses appreciated, nomeningismus, trachea is midline. RESPIRATORY: No dyspnea. Clear to auscultation and equal bilaterally. No wheeze, no rhonchi. CARDIOVASCULAR: Regular rate and rhythm.No murmurs, rubs, gallops appreciated. GASTROINTESTINAL: Abdomen soft, non-tender, no peritonitis.Bowel sounds positive.No masses appreciated. BACK: No midline tenderness, no CVA tenderness EXTREMITIES: Normal motion all extremities, no cyanosis, no edema. NEUROLOGIC: Alert and oriented, no acute motor or sensory deficits, no focal weakness, cranial nerves grossly intact. SKIN: No rash, no jaundice, no diaphoresis. PSYCH: Appropriate GCS: 15 ED Course: Times/Reassessments: Stable, no further symptoms and agreeable to hosp italization Miguel Talley MD Past Med/Surg History Medical History CKD (chronic kidney disease) stage 3, GFR 30-59 ml/min Diabetes mellitus, type II Hyperlipidemia Hypertension Nephrolithiasis Osteoarthritis Vision loss of left eye Surgical History H/O eye surgery RETINA REPAIR IN BOTH EYES Hx of cystoscopy STENT INSERTION AND NOW HAS CHRONIC PAIN IN LEFT LEG SINCE SURGERY Family History Father Congestive heart failure Mother Cancer Social History Smoking Status: Never smoker Tobacco Type: Cigarettes Second Hand Exposure: No; Hx Alcohol Use: No Hx Substance Use: No Preferred Language: Burkinan Communication Ability: Effective Visual Impairment: Partially Limited Machinist 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 Required: No Beliefs That Will Affect Care: None marital status: Current Living Situation: Spouse current occupational status: retired Feels Safe at Home: Yes Assistive Devices: Glasses Allergies Allergies Allergy/AdvReac Type Severity Reaction Status Date / Time Influenza Virus Vaccines Allergy Unknown Verified 07/27/21 21:14 atorvastatin AdvReac Intermediate Cramping Verified 07/27/21 21:14 of the Muscles simvastatin AdvReac Intermediate Cramping Verified 07/27/21 21:14 of the Muscles Home Meds Home Medications Medication Instructions Recorded Confirmed cholecalciferol (vitamin D3) 50 2,000 unit PO QAM 09/20/18 08/22/21 mcg (2,000 unit) capsule pravastatin 40 mg tablet 40 mg PO HS 09/20/18 08/22/21 alogliptin 12.5 mg tablet 12.5 mg PO DAILY 05/19/21 08/22/21 glipizide 5 mg tablet 5 mg PO BID 05/19/21 08/22/21 lisinopril 5 mg tablet 5 mg PO DAILY 05/19/21 08/22/21 metoprolol tartrate 50 mg tablet 25 mg PO BID 05/19/21 08/22/21 (Lopressor) potassium chloride 20 mEq 20 meq PO BID 05/19/21 08/22/21 tablet,extended release aspirin 81 mg tablet,delayed 81 mg PO DAILY 06/20/21 08/22/21 release cetirizine 10 mg tablet 10 mg PO DAILY 06/20/21 08/22/21 furosemide 20 mg tablet (Lasix) 20 mg PO DAILY PRN 07/27/21 08/22/21 Previous Rx's Medication Instructions Recorded amlodipine 5 mg tablet 5 mg PO QAM #0 tab 05/20/21 amlodipine 5 mg tablet 10 mg PO QPM #0 tab 05/20/21 Results & Data (ED) Vital Signs Vital Signs - 24 hr 08/22/21 12:17 08/22/21 12:21 08/22/21 13:24 Temperature 36.5 C Temperature Source Oral Pulse Rate 72 Pulse Rate [Left Apical] 70 81 Pulse Rhythm Regular Pulse Rhythm [Left Apical] Regular Regular Pulse Strength Normal Pulse Strength [Left Apical] Normal Normal Respiratory Rate 20 16 20 Respiratory Effort / Characteristics Non-Labored Non-Labored Non-Labored Respiratory Depth Normal Normal Normal Blood Pressure 153/88 H Blood Pressure [Right Arm] 153/88 H 131/85 Blood Pressure Mean 109 Blood Pressure Mean [Right Arm] 109 100 Blood Pressure Position Lying Blood Pressure Position [Right Arm] Sitting Pulse Oximetry 93 98 98 Oxygen Delivery Method Room Air Nasal Cannula Nasal Cannula Oxygen Flow Rate 2 2 Sepsis Recent Fever Within 48 Hours No Sepsis New/Unexplained Change in Mental Status No Sepsis Action Taken by Nursing No Action Required Oxygen Flow Rate - Titration 2 Pulse Oximetry Post Tiitration 98 Laboratory Data Result diagrams: 08/22/21 12:18 08/22/21 13:10 Lab Results 08/22/21 08/22/21 08/22/21 Range/Units 12:18 12:18 12:37 WBC 11.72 H (4.8-10.8) K/uL RBC 5.20 (4.7-6.1) M/uL Hgb 16.6 (14.0-18.0) g/dL Hct 47.1 (42-52) % MCV 90.6 (80-100) fL MCH 31.9 (25-34) pg MCHC 35.2 (32-36) g/dL RDW Std Deviation 48.0 H (36.4-46.3) fL RDW Coeff of Mark 14.4 (11.5-14.5) % Plt Count 299 (130-400) K/uL MPV 9.8 (7.4-10.4) fL Immature Gran % (Auto) 1.1 % Neut % (Auto) 65.8 % Lymph % (Auto) 22.8 % [place] % (Auto) 6.7 % Eos % (Auto) 3.2 % Baso % (Auto) 0.4 % Neut # (Auto) 7.70 H (1.4-6.5) K/uL Lymph # (Auto) 2.67 (1.2-3.4) K/uL [place] # (Auto) 0.79 H (0.11-0.59) K/uL Eos # (Auto) 0.38 (0-0.5) K/uL Baso # (Auto) 0.05 (0-0.2) K/uL Immature Gran # (Auto) 0.13 H (0.00-0.02) K/uL Sodium 136 (136-145) mmol/L Potassium (3.5-5.1) mmol/L Chloride 106 (98-107) mmol/L Carbon Dioxide 22 (21-32) mmol/L Anion Gap 8.0 (3-11) BUN 14 (7-18) mg/dl Creatinine 1.71 H (0.6-1.4) mg/dl Est Cr Clr Drug Dosing 40.9 ml/min Est GFR ( Amer) 44.1 ml/min Est GFR (Non-Af Amer) 38.0 ml/min BUN/Creatinine Ratio 8.4 L (10-20) Glucose 237 H (70-99) mg/dl Calcium 9.4 (8.5-10.1) mg/dl Total Bilirubin 0.9 (0.2-1) mg/dl Direct Bilirubin (0-0.2) mg/dl AST (15-37) U/L ALT 22 (12-78) Alkaline Phosphatase 110 (45-117) U/L Troponin I < 0.015 (0-0.045) ng/ml Total Protein 7.4 (6.4-8.2) gm/dl Albumin 3.5 (3.4-5.0) gm/dl Lipase 177 (73-393) U/L SARS-CoV-2, RNA, NAAT NEGATIVE (NEGATIVE) 08/22/21 Range/Units 13:10 WBC (4.8-10.8) K/uL RBC (4.7-6.1) M/uL Hgb (14.0-18.0) g/dL Hct (42-52) % MCV (80-100) fL MCH (25-34) pg MCHC (32-36) g/dL RDW Std Deviation (36.4-46.3) fL RDW Coeff of Mark (11.5-14.5) % Plt Count (130-400) K/uL MPV (7.4-10.4) fL Immature Gran % (Auto) % Neut % (Auto) % Lymph % (Auto) % [place] % (Auto) % Eos % (Auto) % Baso % (Auto) % Neut # (Auto) (1.4-6.5) K/uL Lymph # (Auto) (1.2-3.4) K/uL [place] # (Auto) (0.11-0.59) K/uL Eos # (Auto) (0-0.5) K/uL Baso # (Auto) (0-0.2) K/uL Immature Gran # (Auto) (0.00-0.02) K/uL Sodium (136-145) mmol/L Potassium 3.7 (3.5-5.1) mmol/L Chloride (98-107) mmol/L Carbon Dioxide (21-32) mmol/L Anion Gap (3-11) BUN (7-18) mg/dl Creatinine (0.6-1.4) mg/dl Est Cr Clr Drug Dosing ml/min Est GFR ( Amer) ml/min Est GFR (Non-Af Amer) ml/min BUN/Creatinine Ratio (10-20) Glucose (70-99) mg/dl Calcium (8.5-10.1) mg/dl Total Bilirubin (0.2-1) mg/dl Direct Bilirubin 0.2 (0-0.2) mg/dl AST 11 L (15-37) U/L ALT (12-78) Alkaline Phosphatase (45-117) U/L Troponin I (0-0.045) ng/ml Total Protein (6.4-8.2) gm/dl Albumin (3.4-5.0) gm/dl Lipase (73-393) U/L SARS-CoV-2, RNA, NAAT (NEGATIVE) Administered Medications Discontinued Medications Aspirin (Aspirin 81 Mg Chew) 324 mg PO NOW STA Stop: 08/22/21 12:15 Last Admin: 08/22/21 12:41 Dose: 324 mg Documented by: [id number] Imaging Data Radiologist's Impression: Chest X-Ray 08/22/21 12:14 XR chest 1V portable CLINICAL HISTORY: Atypical chest pain TECHNIQUE: Single frontal radiograph of the chest was obtained. Comparison: Comparison is made to chest one view 07/27/2021 FINDINGS: No lines and tubes are seen. The cardiomediastinal silhouette is normal. Lungs are underinflated but clear. No evidence of pleural effusion or pneumothorax. IMPRESSION: No acute chest disease. ACT 112: Negative or not required by law. Electronically signed by: Lavon Prabhakar M.D. 08/22/2021 1:25 PM Discharge Plan Visit Data Chief Complaint: Chest Pain Stated Complaint: chest pain, sob ED Provider: Miguel Talley Discharge Problem: Substernal precordial chest pain, SOB (shortness of breath) Forms Stand Alone Forms: My [facility] Prescriptions Prescriptions: No Action cetirizine 10 mg tablet 10 mg PO DAILY RF: 0 aspirin 81 mg tablet,delayed release (DR/EC) 81 mg PO DAILY RF: 0 cholecalciferol (vitamin D3) 2,000 unit Capsule 2,000 unit PO QAM RF: 0 pravastatin 40 mg Tablet 40 mg PO HS RF: 0 furosemide [Lasix] 20 mg tablet 20 mg PO DAILY PRN (Reason: WT GAIN 2+ LBS.) RF: 0 metoprolol tartrate [Lopressor] 50 mg Tablet 25 mg PO BID RF: 0 lisinopril 5 mg Tablet 5 mg PO DAILY RF: 0 glipizide 5 mg Tablet 5 mg PO BID RF: 0 alogliptin 12.5 mg Tablet 12.5 mg PO DAILY RF: 0 potassium chloride 20 mEq Tablet Extended Release 20 meq PO BID RF: 0 amlodipine 5 mg Tablet 5 mg PO QAM Qty: 0 RF: 0 amlodipine 5 mg Tablet 10 mg PO QPM Qty: 0 RF: 0 Referrals Referrals: Juanita Carlson PA-C [Primary Care Provider] -
[2021-08-22 13:01] LABS: Basophils # (auto) 0.05 K/uL (0-0.2); Basophils % (auto) 0.4 %; Eosinophils # (auto) 0.38 K/uL (0-0.5); Eosinophils % (auto) 3.2 %; Hematocrit (blood only) 47.1 % (42-52); Hemoglobin 16.6 g/dL (14.0-18.0); Immature Granulocytes # (auto) 0.13 K/uL (0.00-0.02); Immature Granulocytes % (auto) 1.1 %; Lymphocytes # (auto) 2.67 K/uL (1.2-3.4); Lymphocytes % (auto) 22.8 %; Mean Corpuscular Hemoglobin 31.9 pg (25-34); Mean Corpuscular Hgb Conc 35.2 g/dL (32-36); Mean Corpuscular Volume 90.6 fL (80-100); Mean Platelet Volume 9.8 fL (7.4-10.4); Monocytes # (auto) 0.79 K/uL (0.11-0.59); Monocytes % (auto) 6.7 %; Neutrophils % (auto) 65.8 %; Platelet Count 299 K/uL (130-400); RDW Coefficient of Variation 14.4 % (11.5-14.5); White Blood Count 11.72 K/uL (4.8-10.8)
[2021-08-22 13:05] LABS: Alanine Aminotransferase 22 (12-78); Albumin Level 3.5 gm/dl (3.4-5.0); Alkaline Phosphatase 110 U/L (45-117); BUN Creatinine Ratio 8.4 (10-20); Bilirubin,Total 0.9 mg/dl (0.2-1); Blood Urea Nitrogen 14 mg/dl (7-18); Calcium 9.4 mg/dl (8.5-10.1); Carbon Dioxide 22 mmol/L (21-32); Chloride 106 mmol/L (98-107); Creatinine Clr Calc Pharmacy 40.9 ml/min; Est GFR (African American) 44.1 ml/min; Glucose 237 mg/dl (70-99); Lipase 177 U/L (73-393); Sodium 136 mmol/L (136-145); Total Protein 7.4 gm/dl (6.4-8.2); Troponin I < 0.015 ng/ml (0-0.045)
--- NOTE | 2021-08-22 13:26 | XRay Report ---
XR chest 1V portable CLINICAL HISTORY: Atypical chest pain TECHNIQUE: Single frontal radiograph of the chest was obtained. Comparison: Comparison is made to chest one view 07/27/2021 FINDINGS: No lines and tubes are seen. The cardiomediastinal silhouette is normal. Lungs are underinflated but clear. No evidence of pleural effusion or pneumothorax. IMPRESSION: No acute chest disease. ACT 112: Negative or not required by law. Electronically signed by: Lavon Prabhakar M.D. 08/22/2021 1:25 PM
[2021-08-22 13:36] LABS: Potassium 3.7 mmol/L (3.5-5.1)
[2021-08-22 13:41] LABS: Bilirubin Direct 0.2 mg/dl (0-0.2)
--- NOTE | 2021-08-22 14:44 | History & Physical Report ---
Date of Service August 22, 2021 Assessment & Plan (1) Substernal precordial chest pain: Plan: monitor trop x 3 consult cardio:possbile cardiac cath to completly rule out cardiac chest pain. Patient does have multiple risk factors for CAD, and has advanced age. (2) CKD (chronic kidney disease) stage 3, GFR 30-59 ml/min: Plan: will monitor BMP in am. Creatinine is at baseline (3) Diabetes mellitus, type II: Plan: consult glycemic control. hold oral meds (4) Hyperlipidemia: Plan: resume statin History of Present Illness Chief Complaint: chest pain Primary Care Provider: Juanita Carlson PA-C 76 yo male reports moderate intensity pressure like chest pain which woke patient up this morning at 5 am. This was accompanied by generalized weakness. Pressure like chest pain did not resolve. At 10 am, patient called the ambulance. [facility] He also reports having a recent negative cardiac stress test Patient reports he has chronic intermittent SOB and states that he was diagnosed with asthma, however he does not agree with this diagnosis. He states his abdominal pain worsened with INH beta agonists. Allergies Allergy/AdvReac Type Severity Reaction Status Date / Time Influenza Virus Vaccines Allergy Unknown Verified 07/27/21 21:14 atorvastatin AdvReac Intermediate Cramping Verified 07/27/21 21:14 of the Muscles simvastatin AdvReac Intermediate Cramping Verified 07/27/21 21:14 of the Muscles Home Medications Medication Instructions Recorded Confirmed Type cholecalciferol (vitamin D3) 50 2,000 unit PO QAM 09/20/18 08/22/21 History mcg (2,000 unit) capsule pravastatin 40 mg tablet 40 mg PO HS 09/20/18 08/22/21 History alogliptin 12.5 mg tablet 12.5 mg PO DAILY 05/19/21 08/22/21 History glipizide 5 mg tablet 5 mg PO BID 05/19/21 08/22/21 History lisinopril 5 mg tablet 5 mg PO DAILY 05/19/21 08/22/21 History metoprolol tartrate 50 mg tablet 25 mg PO BID 05/19/21 08/22/21 History (Lopressor) potassium chloride 20 mEq 20 meq PO BID 05/19/21 08/22/21 History tablet,extended release amlodipine 5 mg tablet 5 mg PO QAM #0 tab 05/20/21 08/22/21 Rx amlodipine 5 mg tablet 10 mg PO QPM #0 tab 05/20/21 08/22/21 Rx aspirin 81 mg tablet,delayed 81 mg PO DAILY 06/20/21 08/22/21 History release cetirizine 10 mg tablet 10 mg PO DAILY 06/20/21 08/22/21 History furosemide 20 mg tablet (Lasix) 20 mg PO DAILY PRN 07/27/21 08/22/21 History Past Med/Surg History Medical History CKD (chronic kidney disease) stage 3, GFR 30-59 ml/min Diabetes mellitus, type II Hyperlipidemia Hypertension Nephrolithiasis Osteoarthritis Vision loss of left eye Surgical History H/O eye surgery RETINA REPAIR IN BOTH EYES Hx of cystoscopy STENT INSERTION AND NOW HAS CHRONIC PAIN IN LEFT LEG SINCE SURGERY Family History Father Congestive heart failure Mother Cancer Social History Smoking Status: Never smoker Tobacco Type: Cigarettes Second Hand Exposure: No; Hx Alcohol Use: No Hx Substance Use: No Preferred Language: Romanian Communication Ability: Effective Visual Impairment: Partially Limited Social Services Counselor Required: No Beliefs That Will Affect Care: None marital status: Current Living Situation: Spouse current occupational status: retired Feels Safe at Home: Yes Assistive Devices: Glasses Review of Systems Constitutional: no fever and no body aches Eyes: no blind spots Ear, Nose, Mouth, Throat: no ear pain Respiratory: no cough Cardiovascular: + chest pain and + dyspnea at rest Gastrointestinal: no abdominal pain Genitourinary: no dysuria Musculoskeletal: no loss of height Integumentary: no acne Neurologic: no gait abnormality Psychiatric: no behavioral changes Endocrine: + fatigue Hematologic / Lymphatic: no easy bleeding Physical Exam Constitutional: WD/WN, vitals as above Eyes: PERRL, conjunctivae normal, anicteric sclerae ENMT: external ear and nose normal, oropharynx normal Neck: trachea midline, no thyromegaly Respiratory: normal respiratory effort, lungs clear to auscultation Cardiovascular: RRR, no murmur, no edema Musculoskeletal: no cyanosis or clubbing, extremities motor strength 5/5 Skin: no rashes, warm and dry Neurologic: PERRL, EOMI, accommodation nl, no face palsy, no dysarthria Psychiatric: A+Ox3, euthymic affect Lymphatic: no cervical or axillary lymphadenopathy Results & Data Results & Data ([facility]) Vital Signs (Past 12 Hours) Vital Signs Temp Pulse Pulse Resp BP BP Pulse Ox 08/22/21 13:24 81 20 131/85 98 08/22/21 12:21 70 16 153/88 H 98 08/22/21 12:17 36.5 C 72 20 153/88 H 93 PG Care Time/CCT Total # of Minutes Spent Total Time Spent with Patient: Total time spent is greater than 50% in coordination of care (as documented) at patient's floor/unit and/or counseling patient: Coding Level of Care Code 71077 Initial Inpt Care Lvl 3 Diagnoses CKD (chronic kidney disease) stage 3, GFR 30-59 ml/min N18.30 Chronic kidney disease stage 3 subtype: unspecified whether 3a or 3b Diabetes mellitus, type II E11.22 Chronic kidney disease stage: unspecified stage Diabetes mellitus complication detail: with chronic kidney disease Diabetes mellitus complication status: with kidney complications Diabetes mellitus technician terminal and repeater insulin use: without retirement use Hyperlipidemia E78.5 Substernal precordial chest pain R07.2 (1) CKD (chronic kidney disease) stage 3, GFR 30-59 ml/min Chronic kidney disease stage 3 subtype: unspecified whether 3a or 3b Qualified Code(s): N18.30 - Chronic kidney disease, stage 3 unspecified (2) Diabetes mellitus, type II Chronic kidney disease stage: unspecified stage Diabetes mellitus complica tion detail: with chronic kidney disease Diabetes mellitus complication status: with kidney complications Diabetes mellitus technician terminal and repeater insulin use: without retirement use Qualified Code(s): E11.22 - Type 2 diabetes mellitus with diabetic chronic kidney disease
[2021-08-22] MEDS ORDERED: ACETAMINOPHEN 325 MG TAB PO PRN (14:48)
[2021-08-22] MEDS ORDERED: FUROSEMIDE 20 MG TAB PO PRN (14:53)
[2021-08-22] MEDS ORDERED: PHARMACY GLYCEMIC MGMT CONSULT PRN (14:58)
[2021-08-22 19:02] LABS: Appearance Urine Clear (Clear); Bacteria Urine Automated Negative (Negative); Bilirubin Urine Negative (Negative); Blood Urine Negative (Negative); Cast Urine Automated 0 /lpf (0-5); Color Urine Yellow; Epithelial Cell Urine Auto 0-5 /lpf (0-5); Glucose Urine UA 2+ (Negative); Ketones Urine Negative (Negative); Leukocyte Esterase Urine Negative (Negative); Nitrite Urine Negative (Negative); Protein Urine 1+ (Negative); RBC Urine Automated 0-4 /hpf (0-4); Specific Gravity Urine 1.017 (1.000-1.030); Urobilinogen Urine Negative (Negative); pH Urine 6.5 (4.5-7.5)
[2021-08-22] MEDS ORDERED: DEXTROSE 50% 50 ML SYRINGE IV PRN (20:45)
[2021-08-22] MEDS ORDERED: GLUCOSE 40% GEL 15 GM TUBE PO PRN (20:45)
[2021-08-22] MEDS ORDERED: CARBOHYDRATES FOR HYPOGLYCEMIA PO PRN (20:45)
[2021-08-22] MEDS ORDERED: GLUCOSE 10 TABS/TUBE PO PRN (20:45)
[2021-08-22] MEDS ORDERED: GLUCAGON FOR INJ 1 MG VIAL IM PRN (20:45)
[2021-08-22] MEDS ORDERED: amLODIPine BESYLATE 5 MG TAB PO SCH (21:00)
[2021-08-22] MEDS ORDERED: PRAVASTATIN SOD 40 MG TAB PO SCH (21:00)
[2021-08-22] MEDS: INSULIN ASPART PER UNIT SC SCH (21:58)
[2021-08-22] MEDS: METOPROLOL TARTRATE 25 MG TAB PO SCH (23:15)
[2021-08-22] MEDS: POTASSIUM CHLORIDE CRTAB 20 MEQ TABCR PO SCH (23:16)
[2021-08-23 07:35] LABS: Estimated Average Glucose 166 mg/dl; Hemoglobin A1C 7.4 % (4.5-5.6)
[2021-08-23] MEDS ORDERED: ASPIRIN 81 MG ECTAB PO SCH (09:00)
[2021-08-23] MEDS ORDERED: CHOLECALCIFEROL 1,000 UNITS 25 MCG TAB PO SCH (09:00)
[2021-08-23] MEDS ORDERED: lisinopril 5 MG TAB PO SCH (09:00)
[2021-08-23] MEDS ORDERED: amLODIPine BESYLATE 5 MG TAB PO SCH (09:00)
[2021-08-23] MEDS: POTASSIUM CHLORIDE CRTAB 20 MEQ TABCR PO SCH (09:08)
[2021-08-23] MEDS: METOPROLOL TARTRATE 25 MG TAB PO SCH (09:09)
--- NOTE | 2021-08-23 09:59 | Cardiology Consultation ---
Date of Consultation August 23, 2021 Assessment & Plan (1) Substernal precordial chest pain: 1. Chest pain: The patient certainly has risk factors for coronary disease. He is likely to have an element of coronary disease that is not clinically evident. His symptoms are certainly concerning, but the extended nature of his symptoms and the absence of any biomarker elevation would suggest that this was not related to coronary ischemia or an acute coronary syndrome. Did not appear to have significant breathing difficulty associated with this episode and his chest x-ray was normal at the time of admission. He would like to attribute these symptoms to his new inhaler regimen. it is unclear to me if that is a likely etiology. It is possible that this was stress related. He had some other diffuse symptoms associated with this episode as well and has been under stress before. He does care for his and has tried recruit his family for more support. I do not believe he requires any additional cardiac testing. He underwent dobutamine echocardiography earlier this year without evidence of inducible ischemia. He has not had other symptoms consistent with coronary insufficiency. He [facility] He is currently on aspirin and pravastatin. History of Present Illness Reason for Consultation: chest pain Requesting Physician: Rodney Attending Physician: Samuel Chun DO History of Present Illness the patient is a 76-year-old gentleman without a known history of cardiac disease who presented to the emergency room for symptoms of chest discomfort. Patient states that upon 5 a.m. yesterday he woke in with some significant pressure in the precordial area. This was accompanied by severe weakness. In fact, the patient stated that for period of time he "could not move". He did not report significant breathing difficulty at that time. He was eventually able to get up out of bed and drinks some coffee and water. He had sat in a recliner for some time prior to drinking anything. His symptoms of chest discomfort persisted throughout this time frame and due to the persistent nature of his symptoms he [facility]. He was advised to go to the emergency room for evaluation. In route the patient was administered oxygen and states that his symptoms resolved almost entirely. In fact, he told the ambulance crew that they could take him back home. He has not had any recurrence of the symptoms since he has been in the hospital. He cannot recall similar symptoms in the past. The patient was admitted to our facility earlier in the year for a single episode of orthopnea. He has not had recurrence of orthopnea. In fact, his breathing has actually been quite good recently. [facility] and was prescribed a new inhaler for asthma. He states that he had some side effects from this inhaler leading up to his admission yesterday. This included some confusion and weakness. He has a sedentary individual, but is able to perform routine activity without significant limitation. Three days ago he dug a grave for his dog. He states this was relatively heavy work. He did not report chest pain at that time. Currently he is feeling well. He has been ambulatory to the bathroom without symptoms. No recurrence of his index symptoms since admission. No breathing difficulty. Anxious for discharge. Allergies Allergy/AdvReac Type Severity Reaction Status Date / Time Influenza Virus Vaccines Allergy Unknown Verified 07/27/21 21:14 atorvastatin AdvReac Intermediate Cramping Verified 07/27/21 21:14 of the Muscles simvastatin AdvReac Intermediate Cramping Verified 07/27/21 21:14 of the Muscles Home Medications Medication Instructions Recorded Confirmed Type cholecalciferol (vitamin D3) 50 2,000 unit PO QAM 09/20/18 08/22/21 History mcg (2,000 unit) capsule pravastatin 40 mg tablet 40 mg PO HS 09/20/18 08/22/21 History alogliptin 12.5 mg tablet 12.5 mg PO DAILY 05/19/21 08/22/21 History glipizide 5 mg tablet 5 mg PO BID 05/19/21 08/22/21 History lisinopril 5 mg tablet 5 mg PO DAILY 05/19/21 08/22/21 History metoprolol tartrate 50 mg tablet 25 mg PO BID 05/19/21 08/22/21 History (Lopressor) potassium chloride 20 mEq 20 meq PO BID 05/19/21 08/22/21 History tablet,extended release amlodipine 5 mg tablet 5 mg PO QAM #0 tab 05/20/21 08/22/21 Rx amlodipine 5 mg tablet 10 mg PO QPM #0 tab 05/20/21 08/22/21 Rx aspirin 81 mg tablet,delayed 81 mg PO DAILY 06/20/21 08/22/21 History release cetirizine 10 mg tablet 10 mg PO DAILY 06/20/21 08/22/21 History furosemide 20 mg tablet (Lasix) 20 mg PO DAILY PRN 07/27/21 08/22/21 History Patient History Medical History CKD (chronic kidney disease) stage 3, GFR 30-59 ml/min Diabetes mellitus, type II Hyperlipidemia Hypertension Nephrolithiasis Osteoarthritis Vision loss of left eye Surgical History H/O eye surgery RETINA REPAIR IN BOTH EYES Hx of cystoscopy STENT INSERTION AND NOW HAS CHRONIC PAIN IN LEFT LEG SINCE SURGERY Family History Father Congestive heart failure Mother Cancer Social History Smoking Status: Never smoker Tobacco Type: Cigarettes Second Hand Exposure: No; Hx Alcohol Use: No Hx Substance Use: No Preferred Language: German Communication Ability: Effective Visual Impairment: Partially Limited Java Swing Developer Required: No Beliefs That Will Affect Care: None marital status: Current Living Situation: Spouse current occupational status: retired Feels Safe at Home: Yes Assistive Devices: Glasses Review of Systems Review of Systems: Per HPI. No recent fevers or chills. No coughing. No lower extremity edema. Physical Exam Physical Exam: The patient is alert and oriented. Mood and affect appeared normal. He answered all questions appropriately. HEENT: Pupils are equal and reactive to light and accommodation. Extraocular movements are intact. The sclerae are anicteric. Poor dentition. Neuro: Cranial nerves intact Neck: Patient's neck is supple. He has palpable carotid pulses bilaterally without bruits on auscultation. There is no evidence of jugular venous distention. The thyroid is not enlarged. Lungs: Clear to auscultation bilaterally. He has good air movement without use of accessory muscles. No rales wheezes or rhonchi. Cardiac: Heart demonstrates a regular rate and rhythm. Normal S1 and S2. No murmurs on examination. Pulses: The patient has palpable radial pulses bilaterally that are equal in intensity Extremities: There was no evidence of hypoperfusion. There is no cyanosis or clubbing. There is no edema. Skin: I did not appreciate any rashes on examination today. Results & Data ([facility]) Vital Signs (Past 12 Hours) Vital Signs Temp Pulse Resp BP Pulse Ox 08/23/21 09:11 70 16 159/90 H 08/23/21 07:42 36.5 C 74 22 144/88 H 92 08/23/21 06:00 64 22 135/75 94 08/22/21 23:17 74 20 141/75 H 94 Laboratory Results Abnormal Lab Results 08/22/21 08/22/21 08/22/21 12:18 12:18 12:37 WBC 11.72 H RBC 5.20 Hgb 16.6 Hct 47.1 MCV 90.6 MCH 31.9 MCHC 35.2 RDW Std Deviation 48.0 H RDW Coeff of Mark 14.4 Plt Count 299 MPV 9.8 Immature Gran % (Auto) 1.1 Neut % (Auto) 65.8 Lymph % (Auto) 22.8 Becker % (Auto) 6.7 Eos % (Auto) 3.2 Baso % (Auto) 0.4 Neut # (Auto) 7.70 H Lymph # (Auto) 2.67 Becker # (Auto) 0.79 H Eos # (Auto) 0.38 Baso # (Auto) 0.05 Immature Gran # (Auto) 0.13 H Sodium 136 Potassium Chloride 106 Carbon Dioxide 22 Anion Gap 8.0 BUN 14 Creatinine 1.71 H Est Cr Clr Drug Dosing 40.9 Est GFR ( Amer) 44.1 Est GFR (Non-Af Amer) 38.0 BUN/Creatinine Ratio 8.4 L Glucose 237 H POC Glucose Estimat Average Glucose Hemoglobin A1c Calcium 9.4 Total Bilirubin 0.9 Direct Bilirubin AST ALT 22 Alkaline Phosphatase 110 Troponin I < 0.015 Total Protein 7.4 Albumin 3.5 Lipase 177 Urine Color Urine Appearance Urine pH Ur Specific Sharon Urine Protein Urine Glucose (UA) Urine Ketones Urine Blood Urine Nitrite Urine Bilirubin Urine Urobilinogen Ur Leukocyte Esterase Urine WBC (Auto) Urine RBC (Auto) U Hyaline Cast (Auto) U Epithel Cells (Auto) Urine Bacteria (Auto) SARS-CoV-2, RNA, NAAT NEGATIVE 08/22/21 08/22/21 08/22/21 12:37 13:10 20:52 WBC RBC Hgb Hct MCV MCH MCHC RDW Std Deviation RDW Coeff of Mark Plt Count MPV Immature Gran % (Auto) Neut % (Auto) Lymph % (Auto) Becker % (Auto) Eos % (Auto) Baso % (Auto) Neut # (Auto) Lymph # (Auto) Becker # (Auto) Eos # (Auto) Baso # (Auto) Immature Gran # (Auto) Sodium Potassium 3.7 Chloride Carbon Dioxide Anion Gap BUN Creatinine Est Cr Clr Drug Dosing Est GFR ( Amer) Est GFR (Non-Af Amer) BUN/Creatinine Ratio Glucose POC Glucose 158 H Estimat Average Glucose Hemoglobin A1c Calcium Total Bilirubin Direct Bilirubin 0.2 AST 11 L ALT Alkaline Phosphatase Troponin I Total Protein Albumin Lipase Urine Color Yellow Urine Appearance Clear Urine pH 6.5 Ur Specific Sharon 1.017 Urine Protein 1+ H Urine Glucose (UA) 2+ H Urine Ketones Negative Urine Blood Negative Urine Nitrite Negative Urine Bilirubin Negative Urine Urobilinogen Negative Ur Leukocyte Esterase Negative Urine WBC (Auto) 1-5 Urine RBC (Auto) 0-4 U Hyaline Cast (Auto) 0 U Epithel Cells (Auto) 0-5 Urine Bacteria (Auto) Negative SARS-CoV-2, RNA, NAAT 08/22/21 08/23/21 08/23/21 22:30 03:20 03:20 WBC RBC Hgb Hct MCV MCH MCHC RDW Std Deviation RDW Coeff of Mark Plt Count MPV Immature Gran % (Auto) Neut % (Auto) Lymph % (Auto) Becker % (Auto) Eos % (Auto) Baso % (Auto) Neut # (Auto) Lymph # (Auto) Becker # (Auto) Eos # (Auto) Baso # (Auto) Immature Gran # (Auto) Sodium Potassium Chloride Carbon Dioxide Anion Gap BUN Creatinine Est Cr Clr Drug Dosing Est GFR ( Amer) Est GFR (Non-Af Amer) BUN/Creatinine Ratio Glucose POC Glucose Estimat Average Glucose 166 Hemoglobin A1c 7.4 H Calcium Total Bilirubin Direct Bilirubin AST ALT Alkaline Phosphatase Troponin I < 0.015 < 0.015 Total Protein Albumin Lipase Urine Color Urine Appearance Urine pH Ur Specific Sharon Urine Protein Urine Glucose (UA) Urine Ketones Urine Blood Urine Nitrite Urine Bilirubin Urine Urobilinogen Ur Leukocyte Esterase Urine WBC (Auto) Urine RBC (Auto) U Hyaline Cast (Auto) U Epithel Cells (Auto) Urine Bacteria (Auto) SARS-CoV-2, RNA, NAAT 08/23/21 08/23/21 07:18 09:00 WBC RBC Hgb Hct MCV MCH MCHC RDW Std Deviation RDW Coeff of Mark Plt Count MPV Immature Gran % (Auto) Neut % (Auto) Lymph % (Auto) Becker % (Auto) Eos % (Auto) Baso % (Auto) Neut # (Auto) Lymph # (Auto) Becker # (Auto) Eos # (Auto) Baso # (Auto) Immature Gran # (Auto) Sodium Potassium Chloride Carbon Dioxide Anion Gap BUN Creatinine Est Cr Clr Drug Dosing Est GFR ( Amer) Est GFR (Non-Af Amer) BUN/Creatinine Ratio Glucose POC Glucose 130 H Estimat Average Glucose Hemoglobin A1c Calcium Total Bilirubin Direct Bilirubin AST ALT Alkaline Phosphatase Troponin I < 0.015 Total Protein Albumin Lipase Urine Color Urine Appearance Urine pH Ur Specific Sharon Urine Protein Urine Glucose (UA) Urine Ketones Urine Blood Urine Nitrite Urine Bilirubin Urine Urobilinogen Ur Leukocyte Esterase Urine WBC (Auto) Urine RBC (Auto) U Hyaline Cast (Auto) U Epithel Cells (Auto) Urine Bacteria (Auto) SARS-CoV-2, RNA, NAAT Diagnostic Findings Chest x-ray obtained at the time admission not reveal any acute cardiopulmonary process. EKG obtained the time of admission was normal sinus rhythm. No significant ST or T-wave changes. Stress (Dobutamine) echocardiogram performed 05/20/2021: No evidence of inducible ischemia. echocardiogram obtained at the [facility] on 04/29/2021: Normal LV systolic function with ejection fraction 55 percent. Mild mitral regurgitation. PG Care Time/CCT Total # of Minutes Spent Total Time Spent with Patient: Total time spent is greater than 50% in coordination of care (as documented) at patient's floor/unit and/or counseling patient: Coding Level of Care Code 58829 Office/OBS Consult Lvl 4 Diagnoses Substernal precordial chest pain R07.2
[2021-08-23] MEDS: INSULIN ASPART PER UNIT SC SCH ×2 (11:02→14:05)
--- NOTE | 2021-08-23 13:42 | Discharge Summary ---
Date of Service August 23, 2021 Admission HPI Per Admitting Provider 76 yo male reports moderate intensity pressure like chest pain which woke patient up this morning at 5 am. This was accompanied by generalized weakness. Pressure like chest pain did not resolve. At 10 am, patient called the ambulance. [facility] He also reports having a recent negative cardiac stress test Patient reports he has chronic intermittent SOB and states that he was diagnosed with asthma, however he does not agree with this diagnosis. He states his abdominal pain worsened with INH beta agonists. Admission Exam Per Admitting Provider Constitutional: WD/WN, vitals as above Eyes: PERRL, conjunctivae normal, anicteric sclerae ENMT: external ear and nose normal, oropharynx normal Neck: trachea midline, no thyromegaly Respiratory: normal respiratory effort, lungs clear to auscultation Cardiovascular: RRR, no murmur, no edema Musculoskeletal: no cyanosis or clubbing, extremities motor strength 5/5 Skin: no rashes, warm and dry Neurologic: PERRL, EOMI, accommodation nl, no face palsy, no dysarthria Psychiatric: A+Ox3, euthymic affect Lymphatic: no cervical or axillary lymphadenopathy Principal Diagnosis Chest Pain Discharge Exam Constitutional WD/WN, vitals as above Neck trachea midline, no thyromegaly Respiratory normal respiratory effort, lungs clear to auscultation Cardiovascular RRR, no murmur, no edema Gastrointestinal (Abdomen) normal bowel sounds, soft, nontender, no hepatosplenomegaly Discharge Data Allergies Allergy/AdvReac Type Severity Reaction Status Date / Time Influenza Virus Vaccines Allergy Unknown Verified 07/27/21 21:14 atorvastatin AdvReac Intermediate Cramping Verified 07/27/21 21:14 of the Muscles simvastatin AdvReac Intermediate Cramping Verified 07/27/21 21:14 of the Muscles Consultations 08/22/21 13:36 ED Decision to Admit Stat 08/22/21 15:34 Consult Cardiology Routine Ordered Studies Chest X-Ray 08/22/21 12:14 XR chest 1V portable CLINICAL HISTORY: Atypical chest pain TECHNIQUE: Single frontal radiograph of the chest was obtained. Comparison: Comparison is made to chest one view 07/27/2021 FINDINGS: No lines and tubes are seen. The cardiomediastinal silhouette is normal. Lungs are underinflated but clear. No evidence of pleural effusion or pneumothorax. IMPRESSION: No acute chest disease. ACT 112: Negative or not required by law. Electronically signed by: Lavon Prabhakar M.D. 08/22/2021 1:25 PM Hospital Course (1) Chest pain: (2) SOB (shortness of breath): 76-year-old male presenting with chronic dyspnea and acute chest pain /pressure Along with weakness the patient did not improved during the morning and therefore he contacted the ambulance. The patient was admitted overnight, symptoms resolved after application of oxygen in the ambulance evaluated by Cardiology no additional testing see cardiology progress notes, prior stress echo Physical exam, laboratory work and chest X ray were reassuring Due the patient's concerns of his inhaler causing difficulties with breathing he will stop the [facility] until he is seen by his primary care. The patient will continue his albuterol inhaler as needed Patient will contact their PCP with new symptoms ER precautions reviewed Total Time Total Time Spent Total Time Spent (In Minutes): >30 minutes Discharge Plan Discharge Items Patient Disposition: Home - Self-Care Reason For Visit: chest pain, sob Discharge Diagnosis: Resolving chest pain, associated with chronic dyspnea Condition on Discharge: Good Activity: Resume your previous activity Lifting: None Bathing: No limitations Exercise/Sports: Rest today Driving/Machine Use: No limitations Weightbearing: Full weightbearing Non-emergency contact: Primary Care Provider Call non-emergency contact if: you have any medication questions, your symptoms worsen and you have a fever Follow-up/Referrals: Juanita Carlson PA-C [Primary Care Provider] - Diet: Carb Consistent or DM2 and Low Sodium (2gm) Addtl Attending Provider Instructions: . Inhaler recently started by ID. Continue albuterol as needed Continue all other medications Pending Studies at Discharge: No Stand-Alone Forms: My [facility] [email or web address], Smoking Cessation Medications and DC Order Prescriptions: Continued cetirizine 10 mg tablet 10 mg PO DAILY RF: 0 aspirin 81 mg tablet,delayed release (DR/EC) 81 mg PO DAILY RF: 0 cholecalciferol (vitamin D3) 2,000 unit Capsule 2,000 unit PO QAM RF: 0 pravastatin 40 mg Tablet 40 mg PO HS RF: 0 furosemide [Lasix] 20 mg tablet 20 mg PO DAILY PRN (Reason: WT GAIN 2+ LBS.) RF: 0 metoprolol tartrate [Lopressor] 50 mg Tablet 25 mg PO BID RF: 0 lisinopril 5 mg Tablet 5 mg PO DAILY RF: 0 glipizide 5 mg Tablet 5 mg PO BID RF: 0 alogliptin 12.5 mg Tablet 12.5 mg PO DAILY RF: 0 potassium chloride 20 mEq Tablet Extended Release 20 meq PO BID RF: 0 Changed amlodipine 5 mg Tablet 5 mg PO Q12 Qty: 0 RF: 0 Discontinued amlodipine 5 mg Tablet 10 mg PO QPM Qty: 0 RF: 0 Discharge Orders: Discharge Order (Routine); Ordered 08/23/21 Ordered By: Samuel Glasgow/Other Patient Handouts: High Blood Sugar (Hyperglycemia), Hypoglycemia (Low Blood Sugar), Managing Type 2 Diabetes Admission Data Admit Date/Time: 08/22/21 14:49 Attending Provider: Samuel Chun Admit Provider: Dereck Stevens Primary Care Provider: Juanita Carlson Other Providers: Dereck Stevens ; Ector Caballero ; [facility] Coding Level of Care Code 18813 OBS Care - Discharge Diagnoses Chest pain R07.9 SOB (shortness of breath) R06.02
--- NOTE | 2021-08-23 16:10 | Electrocardiogram Report ---
Test Reason : Blood Pressure : / mmHG Vent. 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
== END 2021-08-23 16:00 | disposition home or self-care (01) ==
LOC: ED 12:06 → EDINP 12:06 → SUATTDRO 14:49 → EDINP 20:44

== ENCOUNTER 2023-08-13 21:45 | Inpatient (IN) ==
[2023-08-13 22:21] LABS: Basophils # (auto) 0.08 K/uL (0.00-0.20); Basophils % (auto) 0.6 %; Eosinophils # (auto) 0.43 K/uL (0.00-0.50); Eosinophils % (auto) 3.2 %; Hematocrit (blood only) 48.7 % (42.0-52.0); Hemoglobin 17.1 g/dl (14.0-18.0); Immature Granulocytes # (auto) 0.12 K/uL (0.01-0.20); Immature Granulocytes % (auto) 0.9 %; Lymphocytes # (auto) 3.46 K/uL (1.20-3.40); Lymphocytes % (auto) 25.6 %; Mean Corpuscular Hemoglobin 31.5 pg (25.0-34.0); Mean Corpuscular Hgb Conc 35.1 g/dL (32.0-36.0); Mean Corpuscular Volume 89.9 fL (80.0-100.0); Mean Platelet Volume 9.5 fL (9.4-12.4); Monocytes # (auto) 0.88 K/uL (0.11-0.59); Monocytes % (auto) 6.5 %; Neutrophils # (auto) 8.57 K/uL (1.40-6.50); Neutrophils % (auto) 63.2 %; Platelet Count 259 K/uL (130-400); RDW Coefficient of Variation 14.6 % (11.5-14.5); RDW Standard Deviation 48.3 fL (36.4-46.3); Red Blood Count 5.42 M/uL (4.70-6.10); White Blood Count 13.54 K/ul (4.8-10.8)
[2023-08-13 22:37] LABS: Albumin Globulin Ratio 1.3 (0.9-2); Bilirubin,Total 0.6 mg/dl (0.2-1.0); Calcium 9.4 mg/dl (8.6-10.3); Creatinine Clr Calc Pharmacy 40.3 ml/min; Est GFR (African American) 44.7 ml/min; Est GFR (Non-African American) 38.6 ml/min; Globulin 3.1 gm/dl (2.5-4.0); Potassium 4.1 mmol/L (3.5-5.1); Total Protein 7.1 gm/dl (6.0-8.3)
[2023-08-13 22:43] LABS: Troponin I High Sensitivity 7.6 pg/ml (0-20)
[2023-08-13 22:52] LABS: INR 0.9 (0.9-1.1); Partial Thromboplastin Time 27.1 Seconds (21.0-31.0); Prothrombin Time 10.3 Seconds (9.0-12.0)
[2023-08-14] MEDS ORDERED: ASPIRIN CHEW 324 MG PO STA (00:07)
[2023-08-14] MEDS ORDERED: ALBUTEROL 0.083% NEBU SOLN 3 ML VIAL NEB STA (00:08)
--- NOTE | 2023-08-14 00:11 | Emergency Department Note ---
Impression & Plan Acute dyspnea, Hypertension, Chest pain, Leukocytosis, Hyperglycemia ED Provider Note NAME: AMI ALONSO AGE: 78 SEX: M : 1945 ARRIVES VIA: Walk-In INFORMANT: Patient ED PROVIDER(S): Tramaine Pérez DO CHIEF COMPLAINT: shortness of breath HPI: Patient is a 78-year-old male who presents the ER for shortness of breath which has been present for the past 48 hours. He notes he has been getting gradually worse. He denies any arm pain or jaw pain. Does admit to diffuse chest tightness. This has been present fairly constant for today. He denies any history of asthma or COPD. No belly pain nausea vomiting or diarrhea. He denies any swelling in his legs. He notes that shortness of breath is significantly worsened if he lays flat or if he gets up and moves around. He is normally able to walk and push his around without difficulty but over the past 2 days he can barely take several steps without becoming extremely dyspneic. ADDITIONAL HISTORY OBTAINED: Per HPI Chronic Medical/Social Conditions Affecting Care: Per HPI PAST MEDICAL HISTORY:See Below PAST SURGICAL HISTORY:See Below FAMILY HISTORY:See Below SOCIAL HISTORY:See Below HOME MEDICATIONS:See Below ALLERGIES:See Below VITALS:See Below PHYSICAL EXAMINATION: GENERAL: Sitting up in bed, alert, significantly dyspneic with 5 foot walk EYE EXAM: normal conjunctiva. OROPHARYNX: no exudate, no erythema, lips, buccal mucosa, and tongue normal and mucous membranes are moist NECK: supple, no nuchal rigidity, no adenopathy, non-tender LUNGS: Faint wheezing bilaterally. Normal chest wall mechanics HEART: no murmurs, S1 normal and S2 normal ABDOMEN: abdomen soft, non-tender, normo-active bowel sounds, no masses, no rebound or guarding. UPPER EXTREMITIES: upper extremities are grossly normal. LOWER EXTREMITIES: Pitting edema in the bilateral lower extremities NEURO EXAM: Normal sensorium, cranial nerves II-XII grossly intact, normal speech, no gross weakness of arms, no gross weakness of legs. MEDICAL DECISION MAKING: Patient is a 78-year-old male who presents ER for shortness of breath which is worse with laying flat and any kind of movement. Normally able to push around but is unable to do that and/or take several steps without becoming significantly dyspneic. IVs were established blood work was obtained. Labs show mild leukocytosis of 13,000. No significant anemia. He does admit to a runny nose. INR was unremarkable. BMP with creatinine 1.6. Glucose elevated 270. LFTs bilirubin was unremarkable. Troponin was negative. Patient was updated bedside. Discussed case with the hospitalist for further evaluation management treatment. External Records Reviewed: Patient was seen and admitted to the [facility] on 08/[address] Frances Ventura for shortness of breath and chest pain Consults/Care Managements Discussions: Per MDM Triage Nursing notes reviewed. Limited review of prior medical records performed Vital Signs: reviewed and remarkable for HTN Differential diagnosis: Differential diagnoses includes but is not limited to pneumonia, bronchitis, COPD/Asthma exacerbation, pneumothorax, pulmonary embolism, congestive heart failure, acute coronary syndrome ER treatment provided: See below Diagnostics interpreted by me include EKG and cardiac monitoring as listed below: -Cardiac Monitoring: An order was placed for continuous cardiac monitoring. The monitor shows a rate of 70 with sinus rhythm. -ECG: Sinus rhythm rate 78 Normal axis No PVCs Right bundle branch block QTc 442 -Laboratory studies:Interpreted by me as stated above in MDM and shown below. Imaging studies: Xrays: As interpreted by me: Portable AP upright 1 view of the chest shows no focal infiltrate CTs show: none Procedures:none Critical Care: None Past Med/Surg History Medical History (Updated 08/14/23 @ 02:05 by Tramaine Pérez DO) Cervical pain (neck) Pulmonary nodules Dyspnea on exertion Orthopnea Osteoarthritis Nephrolithiasis CKD (chronic kidney disease) stage 3, GFR 30-59 ml/min Hyperlipidemia Diabetes mellitus, type II Vision loss of left eye Hypertension Surgical History Hx of cystoscopy STENT INSERTION AND NOW HAS CHRONIC PAIN IN LEFT LEG SINCE SURGERY H/O eye surgery RETINA REPAIR IN BOTH EYES Family History Father Congestive heart failure Mother Cancer Social History Smoking Status: Never smoker Tobacco Type: Cigarettes Second Hand Exposure: No; Do You Dip or Chew Tobacco: No; Hx Alcohol Use: No Hx Substance Use: No Preferred Language: Portuguese Communication Ability: Effective Visual Impairment: Partially Limited Dot Compliance Specialist Required: No Beliefs That Will Affect Care: None marital status: Current Living Situation: Spouse current occupational status: retired Feels Safe at Home: Yes Assistive Devices: Glasses Allergies Allergies Allergy/AdvReac Type Severity Reaction Status Date / Time Influenza Virus Vaccines Allergy Unknown Verified 05/31/22 00:45 atorvastatin AdvReac Intermediate Cramping Verified 05/31/22 00:45 of the Muscles simvastatin AdvReac Intermediate Cramping Verified 05/31/22 00:45 of the Muscles Home Meds Home Medications Medication Instructions Recorded Confirmed cholecalciferol (vitamin D3) 50 2,000 unit PO QAM 09/20/18 05/31/22 mcg (2,000 unit) capsule pravastatin 40 mg tablet 40 mg PO HS 09/20/18 05/31/22 alogliptin 12.5 mg tablet 12.5 mg PO DAILY 05/19/21 05/31/22 glipizide 5 mg tablet 5 mg PO BID 05/19/21 05/31/22 lisinopril 5 mg tablet 5 mg PO DAILY 05/19/21 05/31/22 metoprolol tartrate 50 mg tablet 25 mg PO BID 05/19/21 05/31/22 (Lopressor) potassium chloride 20 mEq 20 meq PO BID 05/19/21 05/31/22 tablet,extended release aspirin 81 mg tablet,delayed 81 mg PO DAILY 06/20/21 05/31/22 release cetirizine 10 mg tablet 10 mg PO DAILY 06/20/21 05/31/22 furosemide 20 mg tablet (Lasix) 20 mg PO DAILY PRN WT GAIN 2+ LBS. 07/27/21 05/31/22 cyanocobalamin (vitamin B-12) 500 500 mcg PO DAILY 03/28/22 05/31/22 mcg tablet (Vitamin B-12) Previous Rx's Medication Instructions Recorded amlodipine 5 mg tablet 5 mg PO Q12 #0 tabs 08/23/21 amoxicillin 875 mg-potassium 1 tab PO BID #20 tabs 05/31/22 clavulanate 125 mg tablet lidocaine 5 % topical patch 1 patch topical DAILY PRN pain #15 10/17/22 (Lidoderm) ea tramadol 50 mg tablet 50 mg PO BID PRN pain #10 tabs 11/11/22 Results & Data (ED) Vital Signs Vital Signs - 24 hr 08/13/23 21:48 08/14/23 00:03 08/14/23 00:04 Temperature 36.5 C Temperature Source Temporal Artery Scan Pulse Rate 81 75 Pulse Rate [Apical] 64 Pulse Rhythm Respiratory Rate 18 20 Respiratory Effort / Characteristics Non-Labored Spontaneous Respiratory Depth Normal Respiratory Pattern Regular Blood Pressure 173/91 H Blood Pressure Mean 118 Blood Pressure Position Sitting Pulse Oximetry 92 92 Oxygen Delivery Method Room Air Room Air Oxygen Flow Rate Sepsis Recent Fever Within 48 Hours No Sepsis New/Unexplained Change in Mental Status N/A Sepsis Action Taken by Nursing No Action Required 08/14/23 00:39 08/14/23 00:39 Temperature Temperature Source Pulse Rate 75 Pulse Rate [Apical] Pulse Rhythm Irregular Respiratory Rate 18 Respiratory Effort / Characteristics Respiratory Depth Respiratory Pattern Blood Pressure Blood Pressure Mean Blood Pressure Position Pulse Oximetry 94 94 Oxygen Delivery Method Room Air Room Air Oxygen Flow Rate 0 Sepsis Recent Fever Within 48 Hours Sepsis New/Unexplained Change in Mental Status Sepsis Action Taken by Nursing Laboratory Data 08/13/23 22:06 08/13/23 22:06 Lab Results 08/13/23 Range/Units 22:06 WBC 13.54 H (4.8-10.8) K/ul RBC 5.42 (4.70-6.10) M/uL Hgb 17.1 (14.0-18.0) g/dl Hct 48.7 (42.0-52.0) % MCV 89.9 (80.0-100.0) fL MCH 31.5 (25.0-34.0) pg MCHC 35.1 (32.0-36.0) g/dL RDW Std Deviation 48.3 H (36.4-46.3) fL RDW Coeff of Mark 14.6 H (11.5-14.5) % Plt Count 259 (130-400) K/uL MPV 9.5 (9.4-12.4) fL Immature Gran % (Auto) 0.9 % Neut % (Auto) 63.2 % Lymph % (Auto) 25.6 % [place] % (Auto) 6.5 % Eos % (Auto) 3.2 % Baso % (Auto) 0.6 % Neut # (Auto) 8.57 H (1.40-6.50) K/uL Lymph # (Auto) 3.46 H (1.20-3.40) K/uL [place] # (Auto) 0.88 H (0.11-0.59) K/uL Eos # (Auto) 0.43 (0.00-0.50) K/uL Baso # (Auto) 0.08 (0.00-0.20) K/uL Immature Gran # (Auto) 0.12 (0.01-0.20) K/uL PT 10.3 (9.0-12.0) Seconds INR 0.9 (0.9-1.1) APTT 27.1 (21.0-31.0) Seconds PTT Ratio 1.0 Sodium 135 L (136-145) mmol/L Potassium 4.1 (3.5-5.1) mmol/L Chloride 104 (98-107) mmol/L Carbon Dioxide 23 (21-32) mmol/L Anion Gap 8 (3-11) BUN 20 (6-23) mg/dl Creatinine 1.67 H (0.6-1.4) mg/dl Est Cr Clr Drug Dosing 40.3 ml/min Est GFR ( Amer) 44.7 ml/min Est GFR (Non-Af Amer) 38.6 ml/min BUN/Creatinine Ratio 12.0 (10-20) Glucose 273 H (70-99(Fasting)) mg/dl Calcium 9.4 (8.6-10.3) mg/dl Total Bilirubin 0.6 (0.2-1.0) mg/dl AST 16 (13-39) U/L ALT 15 (7-52) U/L Alkaline Phosphatase 96 (34-104) U/L Troponin I High Sens 7.6 (0-20) pg/ml B-Natriuretic Peptide 26 (0-100) pg/ml Total Protein 7.1 (6.0-8.3) gm/dl Albumin 4.0 (3.4-5.0) gm/dl Globulin 3.1 (2.5-4.0) gm/dl Albumin/Globulin Ratio 1.3 (0.9-2) Administered Medications Discontinued Medications Albuterol (Albuterol 0.083% Nebu Soln 3 Ml Vial) 2.5 mg NEB NOW STA; Protocol Stop: 08/14/23 00:09 Last Admin: 08/14/23 00:38 Dose: 2.5 mg Documented By: YISEL Aspirin (Aspirin Chew 324 Mg) 324 mg PO NOW STA Stop: 08/14/23 00:08 Last Admin: 08/14/23 00:26 Dose: 324 mg Documented By: FLORENTINO Discharge Plan Visit Data Chief Complaint: Chest Pain Stated Complaint: DIFFICULTY BREATHING, CHEST PAIN ED Provider: Tramaine Pérez Discharge Problem: Acute dyspnea, Hypertension, Chest pain, Leukocytosis, Hyperglycemia Forms Stand Alone Forms: My [facility] [place] Prescriptions Prescriptions: No Action cetirizine 10 mg tablet 10 mg PO DAILY aspirin 81 mg tablet,delayed release (DR/EC) 81 mg PO DAILY cholecalciferol (vitamin D3) 2,000 unit Capsule 2,000 unit PO QAM pravastatin 40 mg Tablet 40 mg PO HS furosemide [Lasix] 20 mg tablet 20 mg PO DAILY PRN (Reason: WT GAIN 2+ LBS.) amoxicillin-pot clavulanate 875-125 mg tablet 1 tab PO BID Qty: 20 0RF metoprolol tartrate [Lopressor] 50 mg Tablet 25 mg PO BID lisinopril 5 mg Tablet 5 mg PO DAILY glipizide 5 mg Tablet 5 mg PO BID alogliptin 12.5 mg Tablet 12.5 mg PO DAILY potassium chloride 20 mEq Tablet Extended Release 20 meq PO BID amlodipine 5 mg Tablet 5 mg PO Q12 Qty: 0 0RF cyanocobalamin (vitamin B-12) [Vitamin B-12] 500 mcg Tablet 500 mcg PO DAILY lidocaine [Lidoderm] 5 % adhesive patch,medicated 1 patch TOP DAILY PRN (Reason: pain) Qty: 15 0RF Rx Instructions: leave on most painful area for up to 12 hrs tramadol 50 mg tablet 50 mg PO BID PRN (Reason: pain) Qty: 10 0RF Referrals Referrals: Juanita Carlson PA-C [Primary Care Provider] - Discharge Problem: Hypertension Qualifiers: Hypertension type: unspecified Qualified Code(s): I10 - Essential (primary) hypertension Chest pain Qualifiers: Chest pain type: unspecified Qualified Code(s): R07.9 - Chest pain, unspecified Leukocytosis Qualifiers: Leukocytosis type: unspecified Qualified Code(s): D72.829 - Elevated white blood cell count, unspecified
--- NOTE | 2023-08-14 01:11 | History & Physical Report ---
Date of Service August 14, 2023 Assessment & Plan (1) Acute hypoxic respiratory failure: Plan: -Acute hypoxic respiratory failure in setting of progressive dyspnea w/ orthopnea in past 2 days -CXR reassuring against acute processes -RVP pending -Suspect possible viral URI in setting of likely OHS -Currently stable respiratory status on RA, hemodynamically stable -Albuterol nebulizer PRN for now (2) Chest pain: Plan: -Chest tightness w/ negative EKG and troponin x1 -Did have normal dobutamine stress echocardiogram in 2020 -Unlikely to be cardiac source -Will obtain one more troponin level -TTE pending -Telemetry monitoring (3) Leukocytosis: Plan: -Mild leukocytosis of 13.5 on admission -Pt remains afebrile, no reported fever, chills, night sweats, etc -CXR does not suggest pneumonia -Procalcitonin pending -Monitor CBC (4) CKD (chronic kidney disease) stage 3, GFR 30-59 ml/min: Plan: -Cr 1.67 on admission, around baseline of Cr 1.5-1.7 -Monitor BMP (5) Diabetes mellitus, type II: Plan: -Last A1C around 7% in 2020 -Repeat pending -Holding home alogliptin, glipizide -BSG elevated to 273 on admission -Jarochot, MYA (6) Hyperlipidemia: Plan: -Continue pravastatin (7) Hypertension: Plan: -BP stable -Continue lisinopril, metoprolol, amlodipine 5 mg BID Plan FENGI: DM2 Code status: Full DVT prophylaxis: Heparin SQ BID Isolation: Pending RVP Unit: Medical/surgical with telemetry Disposition planning: Likely home. May need 2 step prior to discharge. History of Present Illness Chief Complaint: Dyspnea Primary Care Provider: Juanita Carlson PA-C Pt is 78 yo M with PMH HTN, HLD, DM2, CKD3 presenting with dyspnea. Pt reports onset of exertional dyspnea 2 days prior which has continued to progress in severity. Notes orthopnea as well which has forced him to sleep in recliner. Denies any overt chest pain but has had mild midline chest tightness and non-productive cough. States his daughter had cough/cold symptoms shortly prior to his illness. Dyspnea has significantly limited his ambulation, requiring rest every few steps. Denies fever, chills but has had generalized aching/myalgias. He called [place] office on 08/13 and was advised to come to ER after home O2 reading was 83%. Pt arrived to ER hemodynamically stable. Initial evaluation significant for WBC 13.5, Cr 1.67 (around baseline Cr 1.6), BSG 273. Negative troponin, EKG unremarkable, CXR unremarkable. ER interventions include aspirin 324 mg, albuterol nebulizer. Pt was seen prior to receiving albuterol nebulizer. Denies any new complaints. States he had negative stress testing done "recently" and has also been trying to hydrate well during the past 2 days. He did drink upwards of 4L of water daily and also ate more salty meals but denies any noticeable weight gain or leg swelling. He previously had Lasix 20 mg PRN as a home medication for weight gain but has not used it in quite some time. Allergies Allergy/AdvReac Type Severity Reaction Status Date / Time Influenza Virus Vaccines Allergy Unknown Verified 05/31/22 00:45 atorvastatin AdvReac Intermediate Cramping Verified 05/31/22 00:45 of the Muscles simvastatin AdvReac Intermediate Cramping Verified 05/31/22 00:45 of the Muscles Home Medications Medication Instructions Recorded Confirmed Type cholecalciferol (vitamin D3) 50 2,000 unit PO QAM 09/20/18 05/31/22 History mcg (2,000 unit) capsule pravastatin 40 mg tablet 40 mg PO HS 09/20/18 05/31/22 History alogliptin 12.5 mg tablet 12.5 mg PO DAILY 05/19/21 05/31/22 History glipizide 5 mg tablet 5 mg PO BID 05/19/21 05/31/22 History lisinopril 5 mg tablet 5 mg PO DAILY 05/19/21 05/31/22 History metoprolol tartrate 50 mg tablet 25 mg PO BID 05/19/21 05/31/22 History (Lopressor) potassium chloride 20 mEq 20 meq PO BID 05/19/21 05/31/22 History tablet,extended release aspirin 81 mg tablet,delayed 81 mg PO DAILY 06/20/21 05/31/22 History release cetirizine 10 mg tablet 10 mg PO DAILY 06/20/21 05/31/22 History furosemide 20 mg tablet (Lasix) 20 mg PO DAILY PRN WT GAIN 2+ LBS. 07/27/21 05/31/22 History amlodipine 5 mg tablet 5 mg PO Q12 #0 tabs 08/23/21 05/31/22 Rx cyanocobalamin (vitamin B-12) 500 500 mcg PO DAILY 03/28/22 05/31/22 History mcg tablet (Vitamin B-12) amoxicillin 875 mg-potassium 1 tab PO BID #20 tabs 05/31/22 Rx clavulanate 125 mg tablet lidocaine 5 % topical patch 1 patch topical DAILY PRN pain #15 10/17/22 Rx (Lidoderm) ea tramadol 50 mg tablet 50 mg PO BID PRN pain #10 tabs 11/11/22 Rx Past Med/Surg History Medical History (Updated 08/14/23 @ 09:37 by Skylar Pena) Cervical pain (neck) Pulmonary nodules Dyspnea on exertion Orthopnea Osteoarthritis Nephrolithiasis CKD (chronic kidney disease) stage 3, GFR 30-59 ml/min Hyperlipidemia Diabetes mellitus, type II Vision loss of left eye Hypertension Surgical History Hx of cystoscopy STENT INSERTION AND NOW HAS CHRONIC PAIN IN LEFT LEG SINCE SURGERY H/O eye surgery RETINA REPAIR IN BOTH EYES Family History Father Congestive heart failure Mother Cancer Social History Smoking Status: Former smoker Tobacco Type: Cigarettes Second Hand Exposure: Yes; Do You Dip or Chew Tobacco: No; Hx Alcohol Use: No Hx Substance Use: No Preferred Language: Belarusian Communication Ability: Effective Visual Impairment: Partially Limited Vice President Safety Required: No Beliefs That Will Affect Care: None marital status: Current Living Situation: Spouse current occupational status: retired Feels Safe at Home: Yes Assistive Devices: None Review of Systems Review of Systems: Per HPI/Subjective Physical Exam Physical Exam: General: tired-appearing, no acute distress HEENT: PERRL, EOMI, conjunctivae clear without injection, anicteric sclerae, moist mucous membranes, clear oropharynx without exudate or erythema Neck: supple, trachea midline, no thyromegaly, no JVD, no cervical lymphadenopathy CV: RRR, normal S1 and S2, no murmurs Resp: CTAB, no increased work of breathing, no crackles or wheezes Abd: Soft, nontender, moderately distended, no guarding or rebound, no hepatosplenomegaly MSK: Normal bulk of all four extremities Neuro: AOx3, no focal motor or sensory deficits Skin: no rashes or lesions, warm and dry Ext: no LE peripheral edema or erythema, capillary refill <2s in all four extremities, 2+ LE peripheral pulses b/l Results & Data Results & Data Vital Signs (Past 12 Hours) Vital Signs Temp Pulse Pulse Resp BP Pulse Ox O2 Del Method 08/14/23 00:39 75 18 94 Room Air 08/14/23 00:39 94 Room Air 08/14/23 00:04 75 08/14/23 00:03 64 20 92 Room Air 08/13/23 21:48 36.5 C 81 18 173/91 H 92 Room Air O2 Flow Rate 08/14/23 00:39 08/14/23 00:39 0 08/14/23 00:04 08/14/23 00:03 08/13/23 21:48 Code Status & VTE Plan VTE Prophylaxis Plan VTE Prophylaxis will be ordered: Yes Supervising Physician Co-Signing Physician Notes Attending addendum: I have physically seen this patient, have supervised the medical residents activities, and agree with the H&P unless as otherwise noted. Assessment and Plan: Acute respiratory failure with hypoxia- BioFire pending History of agent orange exposure while in the service Patient does use CPAP at bedtime as needed Has been told at different times to have COPD/emphysema/interstitial lung disease Follows with pulmonology and note [facility] Duonebs every 4 hours while awake and every 2 hours when necessary. Methylprednisolone 40 mg IV every 8 hours Guaifenesin extended release 12 mg p.o. twice daily Chest pain/hypertension- Continue lisinopril, metoprolol and amlodipine May be secondary to COPD exacerbation The patient will be admitted to telemetry for serial cardiac enzymes, serial EKG's, cardiac rhythm monitoring and a 2-D echocardiogram with Dopplers. Patient has history of stress echocardiogram in 2020 Order a transthoracic echo, and will likely need repeat stress testing Diabetes mellitus- Hold oral medications, alogliptin and glipizide Placed on Accu-Cheks with NovoLog SSI Remaining orders and notations as noted Resident Activity Tracking Resident Involvement: Resident Care Provided Care Provided: Adult Hospital Medicine (2) Chest pain Chest pain type: unspecified Qualified Code(s): R07.9 - Chest pain, unspecified (4) CKD (chronic kidney disease) stage 3, GFR 30-59 ml/min Chronic kidney disease stage 3 subtype: stage 3b (GFR 30-44) Qualified Code(s): N18.32 - Chronic kidney disease, stage 3b (5) Diabetes mellitus, type II Diabetes mellitus longterm insulin use: without parts counterman 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
[2023-08-14 01:58] LABS: Adenovirus PCR Not Detected (NotDetected); Bordetella parapertussis PCR Not Detected (NotDetected); Bordetella pertussis PCR Not Detected (NotDetected); Chlamydia pneumoniae PCR Not Detected (NotDetected); Coronavirus 229E PCR Not Detected (NotDetected); Coronavirus CoV-2 (COVID19)PCR Not Detected (NotDetected); Coronavirus HKU1 PCR Not Detected (NotDetected); Coronavirus NL63 PCR Not Detected (NotDetected); Coronavirus OC43PCR Not Detected (NotDetected); Human Metapneumovirus PCR Not Detected (NotDetected); Influenza A PCR Not Detected (NotDetected); Influenza B PCR Not Detected (NotDetected); Mycoplasma pneumoniae PCR Not Detected (NotDetected); Parainfluenza Virus 1 PCR Not Detected (NotDetected); Parainfluenza Virus 2 PCR Not Detected (NotDetected); Parainfluenza Virus 3 PCR Not Detected (NotDetected); Parainfluenza Virus 4 PCR Not Detected (NotDetected); Respiratory Syncytial VirusPCR Not Detected (NotDetected); Rhinovirus/Enterovirus PCR Not Detected (NotDetected)
[2023-08-14] MEDS: SIMETHICONE 80 MG CHEW PO SCH ×3 (02:15→13:03)
[2023-08-14] MEDS ORDERED: ALBUTEROL 0.083% NEBU SOLN 3 ML VIAL NEB PRN (03:16)
[2023-08-14] MEDS ORDERED: GLUCOSE 10 TAB/TUBE PO PRN (03:16)
[2023-08-14] MEDS ORDERED: BENZONATATE 100 MG CAPSULE PO PRN (03:16)
[2023-08-14] MEDS ORDERED: GLUCAGON FOR INJ 1 MG VIAL SQ PRN (03:16)
[2023-08-14] MEDS ORDERED: DEXTROSE 50% 50 ML SYRINGE IV PRN (03:16)
[2023-08-14] MEDS ORDERED: GLUCOSE 40% GEL 15 GM TUBE PO PRN (03:16)
[2023-08-14] MEDS ORDERED: CARBOHYDRATES FOR HYPOGLYCEMIA PO PRN (03:16)
--- NOTE | 2023-08-14 04:46 | CT Scan Report ---
Exam(s): CT ABDOMEN + PELVIS Without Contrast EXAM: CT Abdomen and Pelvis Without Intravenous Contrast CLINICAL HISTORY: Reason for exam: evaluate possible cancer. TECHNIQUE: Axial computed tomography images of the abdomen and pelvis without intravenous contrast. CTDI is 28.11 mGy and DLP is 2265.04 mGy-cm. Automated exposure control was utilized for the study. A dose lowering technique was utilized adhering to the principles of ALARA. COMPARISON: No relevant prior studies available. FINDINGS: Limitations: Limited evaluation in the absence of contrast. Please note that detection of neoplasm is extremely limited in the absence of contrast. Recommend continued further workup as dictated per patient's primary malignancy. Lung bases: Unremarkable. No mass. No consolidation. Heart: Coronary artery calcifications. ABDOMEN: Liver: Unremarkable. Gallbladder and bile ducts: Unremarkable. No calcified stones. No ductal dilation. Pancreas: Unremarkable. No ductal dilation. Spleen: Unremarkable. No splenomegaly. Adrenals: Unremarkable. No mass. Kidneys and ureters: No evidence of obstructive renal calculi or signs of collecting system dilatation. Nonobstructive calculus in the inferior pole of the left kidney measuring up to 7 mm. Simple bilateral renal cysts. No follow-up of these simple cysts is necessary. Stomach and bowel: No evidence of bowel obstruction. Colonic diverticulosis. No evidence of diverticulitis. PELVIS: Appendix: Normal appendix. Bladder: Unremarkable. No stones. Reproductive: Unremarkable as visualized. ABDOMEN and PELVIS: Intraperitoneal space: Unremarkable. No free air. No significant fluid collection. Bones/joints: Degenerative changes in the spine. No acute fracture. No dislocation. Soft tissues: Left breast mass measuring up to 2.7 cm with calcifications. Recommend further workup with dedicated mammography. Bilateral inguinal hernia containing fat. Umbilical hernia containing fat. Vasculature: Atherosclerotic disease. Lymph nodes: Unremarkable. No enlarged lymph nodes. IMPRESSION: 1. Limited evaluation in the absence of contrast. Please note that detection of neoplasm is extremely limited in the absence of contrast. Recommend continued further workup as dictated per patient's primary malignancy. 2. No evidence of obstructive renal calculi or signs of collecting system dilatation. 3. Left breast mass measuring up to 2.7 cm with calcifications. Recommend further workup with dedicated mammography. Electronically signed by: Lucio Rodriguez MD 08/14/23 04:45 AM
--- NOTE | 2023-08-14 04:47 | CT Scan Report ---
Exam(s): CT CHEST Without Contrast EXAM: CT Chest Without Intravenous Contrast CLINICAL HISTORY: Reason for exam: previous mediastinal LAD, dyspnea. TECHNIQUE: Axial computed tomography images of the chest without intravenous contrast. CTDI is 28.11 mGy and DLP is 2265.04 mGy-cm. Automated exposure control was utilized for the study. A dose lowering technique was utilized adhering to the principles of ALARA. COMPARISON: No relevant prior studies available. FINDINGS: Limitations: Limited examination the absence of contrast. Lungs: Centrilobular and paraseptal emphysema noted. No mass. No consolidation. Pleural space: Unremarkable. No pneumothorax. No significant effusion. Heart: Coronary artery calcifications. No cardiomegaly. No significant pericardial effusion. Bones/joints: Degenerative changes in the spine. Incidental note made of T10 hemangioma. No acute fracture. No dislocation. Soft tissues: Partially calcified left breast mass measuring up to 2.7 cm. Consider further dedicated mammographic imaging. Vasculature: Atherosclerotic disease. Lymph nodes: Unremarkable. No enlarged lymph nodes. IMPRESSION: 1. Limited examination the absence of contrast. 2. Partially calcified left breast mass measuring up to 2.7 cm. Consider further dedicated mammographic imaging. Electronically signed by: Lucio Rodriguez MD 08/14/23 04:46 AM
[2023-08-14 06:15] LABS: Hemoglobin 15.9 g/dl (14.0-18.0); Mean Corpuscular Hemoglobin 31.3 pg (25.0-34.0); Mean Corpuscular Hgb Conc 34.6 g/dL (32.0-36.0); Mean Corpuscular Volume 90.6 fL (80.0-100.0); Mean Platelet Volume 9.2 fL (9.4-12.4); Platelet Count 236 K/uL (130-400); RDW Coefficient of Variation 14.6 % (11.5-14.5); RDW Standard Deviation 48.9 fL (36.4-46.3); Red Blood Count 5.08 M/uL (4.70-6.10); White Blood Count 13.42 K/ul (4.8-10.8)
[2023-08-14 06:31] LABS: BUN Creatinine Ratio 12.9 (10-20); Creatinine Clr Calc Pharmacy 45.8 ml/min; Est GFR (African American) 52.2 ml/min; Potassium 3.8 mmol/L (3.5-5.1)
[2023-08-14 06:38] LABS: Troponin I High Sensitivity 7.2 pg/ml (0-20)
[2023-08-14 07:41] VITALS: RESP 16
--- NOTE | 2023-08-14 07:42 | Hospitalist Progress Note ---
Date of Service August 14, 2023 Assessment & Plan (1) Acute hypoxic respiratory failure: Plan: -Acute hypoxic respiratory failure in setting of progressive dyspnea w/ orthopnea in past 2 days -CXR reassuring against acute processes -Viral panel was negative, viral URI less likely -Currently stable respiratory status on RA with O2 Sat at 93, hemodynamically stable -Albuterol nebulizer PRN for now -Patient to continue taking Simethicone as needed -Two step with respiratory therapist to see his oxygen levels when he is ambulating (2) Chest pain: Plan: -Chest tightness w/ negative EKG and troponin x2 (7.6 on 08/13/2023 and 7.2 on 08/14/2023) - This is mostly resolved today as per discussion with patient -Did have normal dobutamine stress echocardiogram in 2020 -Unlikely to be cardiac source -TTE from 08/14/2023 found mild concentric left ventricular hypertrophy with no regional wall motion abnormalities noted. Left ventricular systolic function is normal and Ejection Fraction is 65-70% -Telemetry monitoring (3) Left breast mass: Plan: -CT of Abdomen and Pelvis revealed partially calcified left breast mass measuring up to 2.7 cm -Likely unrelated to presenting symptoms, but should be followed up in the outpatient setting -Patient will receive further diagnostic mammogram and image-guided biopsy as needed in the outpatient setting (4) Leukocytosis: Plan: -Mild leukocytosis of 13.5 on admission, now decreased to 13.42 on 08/14/2023 -Pt remains afebrile, no reported fever, chills, night sweats, etc -CXR does not suggest pneumonia -Procalcitonin < 0.05 (negative) -Continue to monitor CBC (5) CKD (chronic kidney disease) stage 3, GFR 30-59 ml/min: Plan: -This is chronic. Cr 1.67 on admission and at 1.47 on 08/14/2023, around baseli ne of Cr 1.5-1.7 -Monitor BMP (6) Diabetes mellitus, type II: Plan: -Last A1C around 7% in 2020 -Repeat pending -Holding home alogliptin, glipizide -Fasting blood glucose elevated to 273 on admission and currently at 153 -MYA Sunshine (7) Hyperlipidemia: Plan: -This is chronic, continue pravastatin (8) Hypertension: Plan: -This is chronic, BP is stable -Continue lisinopril, metoprolol, amlodipine 5 mg BID Plan Plan FENGI: DM2 Code status: Full DVT prophylaxis: Heparin SQ BID Isolation: Pending RVP Unit: Medical/surgical with telemetry Disposition planning: Likely home. May need 2 step prior to discharge. Admission and Anticipated Discharge Date Admission Date: August 14, 2023 Subjective Ankush Uriarte is a 78 year old male with a past medical history of Hypertension, Hyperlipidemia, Diabetes Mellitus Type 2, and Chronic Kidney Disease Stage 3 presenting who presented to the ED last night with dyspnea. Pt reports onset of exertional dyspnea 2 days prior which has continued to progress in severity. Notes orthopnea and significantly worse SOB when he is laying down as well which has forced him to sleep in recliner. Denies any overt chest pain but has had mild midline chest tightness. States his daughter had cough/cold symptoms shortly prior to his illness. Dyspnea has significantly limited his ambulation, requiring rest every few steps. Denies fever, chills but has had generalized aching/myalgias. He also had a negative stress test done recently. He has also been trying to hydrate well during the past 2 days. He did drink upwards of 4L of water daily and also ate more salty meals but denies any noticeable weight gain or leg swelling. He previously had Lasix 20 mg PRN as a home medication for weight gain but has not used it in quite some time. He called the [place] office on 08/13 and was advised to come to ER after home O2 reading was 83%. Patient denies abdominal pain, nausea, vomiting, diarrhea, constipation, and peripheral edema. Patient arrived to ER hemodynamically stable. Initial evaluation significant for WBC 13.5, Cr 1.67 (around baseline Cr 1.6), BSG 273. Negative troponin, EKG unremarkable, CXR unremarkable. ER interventions include aspirin 324 mg, albuterol nebulizer. Currently, patient denies SOB, cough, and chest tightness. He mentions that he received Simethicone gas pills because his stomach was swollen and this has greatly alleviated his symptoms. He said the last time he had such episodes of shortness of breath he was diagnosed with pneumonia and was concerned initially that this could have caused the episode. He denies fever, chills, difficulty breathing, swallowing, and any recent infections. Patient's condition has been deteriorating recently and this along with some recent deaths in the family have caused the patient to feel depression and anxiety. Patient also had a physical therapy session on Sunday and mentions that typically after these sessions he feels sore in his chest area and shortness of breath. These symptoms typically last 1-2 days following a session. This feels similar to his other episodes, but is more severe. Review of Systems Review of Systems: General: denies weightloss and fatigue Respiratory: denies shortness of breath, wheezing, and pain and tightness in chest Cardio: denies lower extremity edema and palpitations MSK: denies joint pains and muscle weakness GI: denies nausea and vomiting, abdominal pain, and any changes in bowel movements : denies urinary pain, retention Skin: denies rashes, lesions, moles, and skin concerns Heme/Lymph: denies bruising and bleeding Physical Exam Physical Exam: General: Patient is a well appearing male, awake, alert, and oriented Eye: PERRL (pupils equal and responsive to light), EOMI (extraocular motions intact) HEENT: normocephalic, atraumatic, no lymphadenopathy Respiratory: lungs CTA, BS equal, symmetrical expansion, no rales, rhonchi or wheezing CV: normal rate and rhythm, no murmurs, rubs, or gallops GI: abdomen soft, non-tender, non-distended, normal bowel sounds, no organomegaly : no CVA tenderness Neurologic: alert and oriented Psychiatric: calm and cooperative, appropriate mood and affect Results & Data Results & Data Vital Signs (Past 12 Hours) Vital Signs Temp Pulse Pulse Pulse Resp BP BP 08/14/23 03:30 08/14/23 03:16 36.6 C 67 20 164/80 H 08/14/23 02:47 66 20 142/78 H 08/14/23 02:30 66 22 08/14/23 02:20 76 20 08/14/23 02:10 70 20 08/14/23 02:04 168/108 H 08/14/23 02:04 08/14/23 02:00 72 16 168/108 H 08/14/23 01:40 67 18 08/14/23 01:30 69 23 08/14/23 01:20 70 16 08/14/23 01:10 73 24 08/14/23 01:00 147/96 H 08/14/23 01:00 68 17 08/14/23 00:50 71 22 08/14/23 00:44 165/99 H 08/14/23 00:44 65 19 08/14/23 00:40 85 21 08/14/23 00:39 75 18 08/14/23 00:39 08/14/23 00:30 74 17 08/14/23 00:20 68 22 08/14/23 00:10 69 18 08/14/23 00:05 70 23 08/14/23 00:04 75 08/14/23 00:03 64 20 08/13/23 21:48 36.5 C 81 18 173/91 H Pulse Ox O2 Del Method O2 Flow Rate 08/14/23 03:30 Room Air 08/14/23 03:16 95 Room Air 08/14/23 02:47 95 Room Air 08/14/23 02:30 93 08/14/23 02:20 93 08/14/23 02:10 95 08/14/23 02:04 08/14/23 02:04 94 08/14/23 02:00 95 Room Air 08/14/23 01:40 97 08/14/23 01:30 93 08/14/23 01:20 93 08/14/23 01:10 91 08/14/23 01:00 08/14/23 01:00 94 08/14/23 00:50 95 08/14/23 00:44 08/14/23 00:44 95 08/14/23 00:40 94 08/14/23 00:39 94 Room Air 08/14/23 00:39 94 Room Air 0 08/14/23 00:30 08/14/23 00:20 94 08/14/23 00:10 94 08/14/23 00:05 96 08/14/23 00:04 08/14/23 00:03 92 Room Air 08/13/23 21:48 92 Room Air Laboratory Results Laboratory Results WBC 13.42 K/ul (4.8-10.8) H 08/14/23 05:44 RBC 5.08 M/uL (4.70-6.10) 08/14/23 05:44 Hgb 15.9 g/dl (14.0-18.0) 08/14/23 05:44 Hct 46.0 % (42.0-52.0) 08/14/23 05:44 MCV 90.6 fL (80.0-100.0) 08/14/23 05:44 MCH 31.3 pg (25.0-34.0) 08/14/23 05:44 MCHC 34.6 g/dL (32.0-36.0) 08/14/23 05:44 RDW Std Deviation 48.9 fL (36.4-46.3) H 08/14/23 05:44 RDW Coeff of Mark 14.6 % (11.5-14.5) H 08/14/23 05:44 Plt Count 236 K/uL (130-400) 08/14/23 05:44 MPV 9.2 fL (9.4-12.4) L 08/14/23 05:44 Immature Gran % (Auto) 0.9 % 08/13/23 22:06 Neut % (Auto) 63.2 % 08/13/23 22:06 Lymph % (Auto) 25.6 % 08/13/23 22:06 Moca % (Auto) 6.5 % 08/13/23 22:06 Eos % (Auto) 3.2 % 08/13/23 22:06 Baso % (Auto) 0.6 % 08/13/23 22:06 Neut # (Auto) 8.57 K/uL (1.40-6.50) H 08/13/23 22:06 Lymph # (Auto) 3.46 K/uL (1.20-3.40) H 08/13/23 22:06 Moca # (Auto) 0.88 K/uL (0.11-0.59) H 08/13/23 22:06 Eos # (Auto) 0.43 K/uL (0.00-0.50) 08/13/23 22:06 Baso # (Auto) 0.08 K/uL (0.00-0.20) 08/13/23 22:06 Immature Gran # (Auto) 0.12 K/uL (0.01-0.20) 08/13/23 22:06 PT 10.3 Seconds (9.0-12.0) 08/13/23 22:06 INR 0.9 (0.9-1.1) 08/13/23 22:06 APTT 27.1 Seconds (21.0-31.0) 08/13/23 22:06 PTT Ratio 1.0 08/13/23 22:06 Sodium 138 mmol/L (136-145) 08/14/23 05:44 Potassium 3.8 mmol/L (3.5-5.1) 08/14/23 05:44 Chloride 106 mmol/L (98-107) 08/14/23 05:44 Carbon Dioxide 25 mmol/L (21-32) 08/14/23 05:44 Anion Gap 7 (3-11) 08/14/23 05:44 BUN 19 mg/dl (6-23) 08/14/23 05:44 Creatinine 1.47 mg/dl (0.6-1.4) H 08/14/23 05:44 Est Cr Clr Drug Dosing 45.8 ml/min 08/14/23 05:44 Est GFR ( Amer) 52.2 ml/min 08/14/23 05:44 Est GFR (Non-Af Amer) 45.0 ml/min 08/14/23 05:44 BUN/Creatinine Ratio 12.9 (10-20) 08/14/23 05:44 Glucose 153 mg/dl (70-99(Fasting)) H 08/14/23 05:44 POC Glucose 135 mg/dl (70-99) H 08/14/23 07:39 Estimat Average Glucose 186 mg/dl 08/14/23 05:44 Hemoglobin A1c 8.1 % (4.5-5.6) H 08/14/23 05:44 Calcium 9.0 mg/dl (8.6-10.3) 08/14/23 05:44 Total Bilirubin 0.6 mg/dl (0.2-1.0) 08/13/23 22:06 AST 16 U/L (13-39) 08/13/23 22:06 ALT 15 U/L (7-52) 08/13/23 22:06 Alkaline Phosphatase 96 U/L (34-104) 08/13/23 22:06 Troponin I High Sens 7.2 pg/ml (0-20) 08/14/23 05:44 B-Natriuretic Peptide 26 pg/ml (0-100) 08/13/23 22:06 Total Protein 7.1 gm/dl (6.0-8.3) 08/13/23 22:06 Albumin 4.0 gm/dl (3.4-5.0) 08/13/23 22:06 Globulin 3.1 gm/dl (2.5-4.0) 08/13/23 22:06 Albumin/Globulin Ratio 1.3 (0.9-2) 08/13/23 22:06 Procalcitonin < 0.05 ng/ml (0-0.5) 08/14/23 05:44 Adenovirus (PCR) Not Detected (NotDetected) 08/14/23 00:30 B. pertussis DNA (PCR) Not Detected (NotDetected) 08/14/23 00:30 B.parapertussis DNA PCR Not Detected (NotDetected) 08/14/23 00:30 C. pneumoniae DNA (PCR) Not Detected (NotDetected) 08/14/23 00:30 Coronavirus OC43 (PCR) Not Detected (NotDetected) 08/14/23 00:30 Coronavirus HKU1 (PCR) Not Detected (NotDetected) 08/14/23 00:30 Coronavirus 229E (PCR) Not Detected (NotDetected) 08/14/23 00:30 SARS-CoV-2 (PCR) Not Detected (NotDetected) 08/14/23 00:30 Coronavirus NL63 (PCR) Not Detected (NotDetected) 08/14/23 00:30 Human Metapneumovir PCR Not Detected (NotDetected) 08/14/23 00:30 Influenza Type A (PCR) Not Detected (NotDetected) 08/14/23 00:30 Influenza Type B (PCR) Not Detected (NotDetected) 08/14/23 00:30 M. pneumoniae (PCR) Not Detected (NotDetected) 08/14/23 00:30 Parainfluenza 1 (PCR) Not Detected (NotDetected) 08/14/23 00:30 Parainfluenza 2 (PCR) Not Detected (NotDetected) 08/14/23 00:30 Parainfluenza 3 (PCR) Not Detected (NotDetected) 08/14/23 00:30 Parainfluenza 4 (PCR) Not Detected (NotDetected) 08/14/23 00:30 RSV (PCR) Not Detected (NotDetected) 08/14/23 00:30 Entero/Rhino (PCR) Not Detected (NotDetected) 08/14/23 00:30 Impressions Chest X-Ray 08/13/23 21:51 SINGLE VIEW CHEST CLINICAL HISTORY: Atypical chest pain FINDINGS: A PA chest radiograph is compared to study dated 07/31/2022. The heart is mildly enlarged noting atherosclerotic calcification of the thoracic aorta. Emphysema and chronic interstitial thickening is similar to previous. There is mild bibasilar scarring/atelectasis. No airspace consolidation or large pleural effusion is identified. No pneumothorax is seen. The skeletal structures are osteopenic. The bony thorax is grossly intact. IMPRESSION: Cardiomegaly and emphysema with no active disease in the chest. ACT 112: Negative or not required by law. Electronically signed by: Rualito Lord M.D. 08/14/2023 7:46 AM Abdomen/Pelvis CT 08/14/23 01:36 Exam(s): CT ABDOMEN + PELVIS Without Contrast EXAM: CT Abdomen and Pelvis Without Intravenous Contrast CLINICAL HISTORY: Reason for exam: evaluate possible cancer. TECHNIQUE: Axial computed tomography images of the abdomen and pelvis without intravenous contrast. CTDI is 28.11 mGy and DLP is 2265.04 mGy-cm. Automated exposure control was utilized for the study. A dose lowering technique was utilized adhering to the principles of ALARA. COMPARISON: No relevant prior studies available. FINDINGS: Limitations: Limited evaluation in the absence of contrast. Please note that detection of neoplasm is extremely limited in the absence of contrast. Recommend continued further workup as dictated per patient's primary malignancy. Lung bases: Unremarkable. No mass. No consolidation. Heart: Coronary artery calcifications. ABDOMEN: Liver: Unremarkable. Gallbladder and bile ducts: Unremarkable. No calcified stones. No ductal dilation. Pancreas: Unremarkable. No ductal dilation. Spleen: Unremarkable. No splenomegaly. Adrenals: Unremarkable. No mass. Kidneys and ureters: No evidence of obstructive renal calculi or signs of collecting system dilatation. Nonobstructive calculus in the inferior pole of the left kidney measuring up to 7 mm. Simple bilateral renal cysts. No follow-up of these simple cysts is necessary. Stomach and bowel: No evidence of bowel obstruction. Colonic diverticulosis. No evidence of diverticulitis. PELVIS: Appendix: Normal appendix. Bladder: Unremarkable. No stones. Reproductive: Unremarkable as visualized. ABDOMEN and PELVIS: Intraperitoneal space: Unremarkable. No free air. No significant fluid collection. Bones/joints: Degenerative changes in the spine. No acute fracture. No dislocation. Soft tissues: Left breast mass measuring up to 2.7 cm with calcifications. Recommend further workup with dedicated mammography. Bilateral inguinal hernia containing fat. Umbilical hernia containing fat. Vasculature: Atherosclerotic disease. Lymph nodes: Unremarkable. No enlarged lymph nodes. IMPRESSION: 1. Limited evaluation in the absence of contrast. Please note that detection of neoplasm is extremely limited in the absence of contrast. Recommend continued further workup as dictated per patient's primary malignancy. 2. No evidence of obstructive renal calculi or signs of collecting system dilatation. 3. Left breast mass measuring up to 2.7 cm with calcifications. Recommend further workup with dedicated mammography. Electronically signed by: Lucio Rodriguez MD 08/14/23 04:[address] 08/14/23 01:36 Exam(s): CT CHEST Without Contrast EXAM: CT Chest Without Intravenous Contrast CLINICAL HISTORY: Reason for exam: previous mediastinal LAD, dyspnea. TECHNIQUE: Axial computed tomography images of the chest without intravenous contrast. CTDI is 28.11 mGy and DLP is 2265.04 mGy-cm. Automated exposure control was utilized for the study. A dose lowering technique was utilized adhering to the principles of ALARA. COMPARISON: No relevant prior studies available. FINDINGS: Limitations: Limited examination the absence of contrast. Lungs: Centrilobular and paraseptal emphysema noted. No mass. No consolidation. Pleural space: Unremarkable. No pneumothorax. No significant effusion. Heart: Coronary artery calcifications. No cardiomegaly. No significant pericardial effusion. Bones/joints: Degenerative changes in the spine. Incidental note made of T10 hemangioma. No acute fracture. No dislocation. Soft tissues: Partially calcified left breast mass measuring up to 2.7 cm. Consider further dedicated mammographic imaging. Vasculature: Atherosclerotic disease. Lymph nodes: Unremarkable. No enlarged lymph nodes. IMPRESSION: 1. Limited examination the absence of contrast. 2. Partially calcified left breast mass measuring up to 2.7 cm. Consider further dedicated mammographic imaging. Electronically signed by: Lucio Rodriguez MD 08/14/23 04:46 AM (2) Chest pain Chest pain type: unspecified Qualified Code(s): R07.9 - Chest pain, unspecified (5) CKD (chronic kidney disease) stage 3, GFR 30-59 ml/min Chronic kidney disease stage 3 subtype: stage 3b (GFR 30-44) Qualified Code(s): N18.32 - Chronic kidney disease, stage 3b (6) Diabetes mellitus, type II Diabetes mellitus buttermaker insulin use: without nursing home use (8) Hypertension Hypertension type: unspecified Qualified Code(s): I10 - Essential (primary) hypertension
--- NOTE | 2023-08-14 07:47 | XRay Report ---
SINGLE VIEW CHEST CLINICAL HISTORY: Atypical chest pain FINDINGS: A PA chest radiograph is compared to study dated 07/31/2022. The heart is mildly enlarged n oting atherosclerotic calcification of the thoracic aorta. Emphysema and chronic interstitial thicken ing is similar to previous. There is mild bibasilar scarring/atelectasis. No airspace consolidation o r large pleural effusion is identified. No pneumothorax is seen. The skeletal structures are osteopen ic. The bony thorax is grossly intact. IMPRESSION: Cardiomegaly and emphysema with no active disease in the chest. ACT 112: Negative or not required by law. Electronically signed by: Raulito Lord M.D. 08/14/2023 7:46 AM
[2023-08-14] MEDS: INSULIN ASPART PER UNIT CHARGE SC SCH ×3 (07:58→17:06)
[2023-08-14 09:00] LABS: Estimated Average Glucose 186 mg/dl; Hemoglobin A1C 8.1 % (4.5-5.6)
[2023-08-14] MEDS ORDERED: lisinopril 5 MG TAB PO SCH (09:00)
[2023-08-14] MEDS ORDERED: ASPIRIN 81 MG ECTAB PO SCH (09:00)
[2023-08-14] MEDS ORDERED: HEPARIN SOD 5,000 UNIT/0.5 ML VIAL SQ SCH (09:00)
[2023-08-14] MEDS ORDERED: METOPROLOL TARTRATE 25 MG TAB PO SCH (09:00)
[2023-08-14] MEDS ORDERED: LANTUS PER UNIT CHARGE SQ SCH (09:00)
[2023-08-14] MEDS ORDERED: amLODIPine BESYLATE 5 MG TAB PO SCH (09:00)
--- NOTE | 2023-08-14 12:26 | XCELERA ---
[id number] \\[id number]
--- NOTE | 2023-08-14 13:45 | Electrocardiogram Report ---
Test Reason : Blood Pressure : / mmHG Vent. 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
[2023-08-14 14:43] VITALS: BP 152/79; PULSE 70; TEMP 98.1; O2SAT 94
--- NOTE | 2023-08-14 16:55 | Discharge Summary ---
Date of Service August 14, 2023 Admission HPI Per Admitting Provider Ankush Uriarte is a 78 year old male with a past medical history of Hypertension, Hyperlipidemia, Diabetes Mellitus Type 2, and Chronic Kidney Disease Stage 3 presenting who presented to the ED last night with dyspnea. Pt reports onset of exertional dyspnea 2 days prior which has continued to progress in severity. Notes orthopnea and significantly worse SOB when he is laying down as well which has forced him to sleep in recliner. Denies any overt chest pain but has had mild midline chest tightness. States his daughter had cough/cold symptoms shortly prior to his illness. Dyspnea has significantly limited his ambulation, requiring rest every few steps. Denies fever, chills but has had generalized aching/myalgias. He also had a negative stress test done recently. He has also been trying to hydrate well during the past 2 days. He did drink upwards of 4L of water daily and also ate more salty meals but denies any noticeable weight gain or leg swelling. He previously had Lasix 20 mg PRN as a home medication for weight gain but has not used it in quite some time. [facility] and was advised to come to ER after home O2 reading was 83%. Patient denies abdominal pain, nausea, vomiting, diarrhea, constipation, and peripheral edema. Patient arrived to ER hemodynamically stable. Initial evaluation significant for WBC 13.5, Cr 1.67 (around baseline Cr 1.6), BSG 273. Negative troponin, EKG unremarkable, CXR unremarkable. ER interventions include aspirin 324 mg, albuterol nebulizer. Currently, patient denies SOB, cough, and chest tightness. He mentions that he received Simethicone gas pills because his stomach was swollen and this has greatly alleviated his symptoms. He said the last time he had such episodes of shortness of breath he was diagnosed with pneumonia and was concerned initially that this could have caused the episode. He denies fever, chills, difficulty breathing, swallowing, and any recent infections. Patient's condition has been deteriorating recently and this along with some recent deaths in the family have caused the patient to feel depression and anxiety. Patient also had a physical therapy session on Sunday and mentions that typically after these sessions he feels sore in his chest area and shortness of breath. These symptoms typically last 1-2 days following a session. This feels similar to his other episodes, but is more severe. Principal Diagnosis Dyspnea Discharge Exam General: Patient is a well appearing male, awake, alert, and oriented Eye: PERRL (pupils equal and responsive to light), EOMI (extraocular motions intact) HEENT: normocephalic, atraumatic, no lymphadenopathy Respiratory: lungs CTA, BS equal, symmetrical expansion, no rales, rhonchi or wheezing CV: normal rate and rhythm, no murmurs, rubs, or gallops GI: abdomen soft, non-tender, non-distended, normal bowel sounds, no organomegaly : no CVA tenderness Neurologic: alert and oriented Psychiatric: calm and cooperative, appropriate mood and affect Discharge Data Allergies Allergy/AdvReac Type Severity Reaction Status Date / Time Influenza Virus Vaccines Allergy Unknown Verified 05/31/22 00:45 atorvastatin AdvReac Intermediate Cramping Verified 05/31/22 00:45 of the Muscles simvastatin AdvReac Intermediate Cramping Verified 05/31/22 00:45 of the Muscles Consultations 08/14/23 00:13 ED Decision to Admit Stat Ordered Studies Laboratory Results WBC 13.42 K/ul (4.8-10.8) H 08/14/23 05:44 RBC 5.08 M/uL (4.70-6.10) 08/14/23 05:44 Hgb 15.9 g/dl (14.0-18.0) 08/14/23 05:44 Hct 46.0 % (42.0-52.0) 08/14/23 05:44 MCV 90.6 fL (80.0-100.0) 08/14/23 05:44 MCH 31.3 pg (25.0-34.0) 08/14/23 05:44 MCHC 34.6 g/dL (32.0-36.0) 08/14/23 05:44 RDW Std Deviation 48.9 fL (36.4-46.3) H 08/14/23 05:44 RDW Coeff of Mark 14.6 % (11.5-14.5) H 08/14/23 05:44 Plt Count 236 K/uL (130-400) 08/14/23 05:44 MPV 9.2 fL (9.4-12.4) L 08/14/23 05:44 Immature Gran % (Auto) 0.9 % 08/13/23 22:06 Neut % (Auto) 63.2 % 08/13/23 22:06 Lymph % (Auto) 25.6 % 08/13/23 22:06 Bullitt % (Auto) 6.5 % 08/13/23 22:06 Eos % (Auto) 3.2 % 08/13/23 22:06 Baso % (Auto) 0.6 % 08/13/23 22:06 Neut # (Auto) 8.57 K/uL (1.40-6.50) H 08/13/23 22:06 Lymph # (Auto) 3.46 K/uL (1.20-3.40) H 08/13/23 22:06 Bullitt # (Auto) 0.88 K/uL (0.11-0.59) H 08/13/23 22:06 Eos # (Auto) 0.43 K/uL (0.00-0.50) 08/13/23 22:06 Baso # (Auto) 0.08 K/uL (0.00-0.20) 08/13/23 22:06 Immature Gran # (Auto) 0.12 K/uL (0.01-0.20) 08/13/23 22:06 PT 10.3 Seconds (9.0-12.0) 08/13/23 22:06 INR 0.9 (0.9-1.1) 08/13/23 22:06 APTT 27.1 Seconds (21.0-31.0) 08/13/23 22:06 PTT Ratio 1.0 08/13/23 22:06 Sodium 138 mmol/L (136-145) 08/14/23 05:44 Potassium 3.8 mmol/L (3.5-5.1) 08/14/23 05:44 Chloride 106 mmol/L (98-107) 08/14/23 05:44 Carbon Dioxide 25 mmol/L (21-32) 08/14/23 05:44 Anion Gap 7 (3-11) 08/14/23 05:44 BUN 19 mg/dl (6-23) 08/14/23 05:44 Creatinine 1.47 mg/dl (0.6-1.4) H 08/14/23 05:44 Est Cr Clr Drug Dosing 45.8 ml/min 08/14/23 05:44 Est GFR ( Amer) 52.2 ml/min 08/14/23 05:44 Est GFR (Non-Af Amer) 45.0 ml/min 08/14/23 05:44 BUN/Creatinine Ratio 12.9 (10-20) 08/14/23 05:44 Glucose 153 mg/dl (70-99(Fasting)) H 08/14/23 05:44 POC Glucose 163 mg/dl (70-99) H 08/14/23 16:41 Estimat Average Glucose 186 mg/dl 08/14/23 05:44 Hemoglobin A1c 8.1 % (4.5-5.6) H 08/14/23 05:44 Calcium 9.0 mg/dl (8.6-10.3) 08/14/23 05:44 Total Bilirubin 0.6 mg/dl (0.2-1.0) 08/13/23 22:06 AST 16 U/L (13-39) 08/13/23 22:06 ALT 15 U/L (7-52) 08/13/23 22:06 Alkaline Phosphatase 96 U/L (34-104) 08/13/23 22:06 Troponin I High Sens 7.2 pg/ml (0-20) 08/14/23 05:44 B-Natriuretic Peptide 26 pg/ml (0-100) 08/13/23 22:06 Total Protein 7.1 gm/dl (6.0-8.3) 08/13/23 22:06 Albumin 4.0 gm/dl (3.4-5.0) 08/13/23 22:06 Globulin 3.1 gm/dl (2.5-4.0) 08/13/23 22:06 Albumin/Globulin Ratio 1.3 (0.9-2) 08/13/23 22:06 Procalcitonin < 0.05 ng/ml (0-0.5) 08/14/23 05:44 Adenovirus (PCR) Not Detected (NotDetected) 08/14/23 00:30 B. pertussis DNA (PCR) Not Detected (NotDetected) 08/14/23 00:30 B.parapertussis DNA PCR Not Detected (NotDetected) 08/14/23 00:30 C. pneumoniae DNA (PCR) Not Detected (NotDetected) 08/14/23 00:30 Coronavirus OC43 (PCR) Not Detected (NotDetected) 08/14/23 00:30 Coronavirus HKU1 (PCR) Not Detected (NotDetected) 08/14/23 00:30 Coronavirus 229E (PCR) Not Detected (NotDetected) 08/14/23 00:30 SARS-CoV-2 (PCR) Not Detected (NotDetected) 08/14/23 00:30 Coronavirus NL63 (PCR) Not Detected (NotDetected) 08/14/23 00:30 Human Metapneumovir PCR Not Detected (NotDetected) 08/14/23 00:30 Influenza Type A (PCR) Not Detected (NotDetected) 08/14/23 00:30 Influenza Type B (PCR) Not Detected (NotDetected) 08/14/23 00:30 M. pneumoniae (PCR) Not Detected (NotDetected) 08/14/23 00:30 Parainfluenza 1 (PCR) Not Detected (NotDetected) 08/14/23 00:30 Parainfluenza 2 (PCR) Not Detected (NotDetected) 08/14/23 00:30 Parainfluenza 3 (PCR) Not Detected (NotDetected) 08/14/23 00:30 Parainfluenza 4 (PCR) Not Detected (NotDetected) 08/14/23 00:30 RSV (PCR) Not Detected (NotDetected) 08/14/23 00:30 Entero/Rhino (PCR) Not Detected (NotDetected) 08/14/23 00:30 Impressions Chest X-Ray 08/13/23 21:51 SINGLE VIEW CHEST CLINICAL HISTORY: Atypical chest pain FINDINGS: A PA chest radiograph is compared to study dated 07/31/2022. The heart is mildly enlarged noting atherosclerotic calcification of the thoracic aorta. Emphysema and chronic interstitial thickening is similar to previous. There is mild bibasilar scarring/atelectasis. No airspace consolidation or large pleural effusion is identified. No pneumothorax is seen. The skeletal structures are osteopenic. The bony thorax is grossly intact. IMPRESSION: Cardiomegaly and emphysema with no active disease in the chest. ACT 112: Negative or not required by law. Electronically signed by: Raulito Lord M.D. 08/14/2023 7:46 AM Abdomen/Pelvis CT 08/14/23 01:36 Exam(s): CT ABDOMEN + PELVIS Without Contrast EXAM: CT Abdomen and Pelvis Without Intravenous Contrast CLINICAL HISTORY: Reason for exam: evaluate possible cancer. TECHNIQUE: Axial computed tomography images of the abdomen and pelvis without intravenous contrast. CTDI is 28.11 mGy and DLP is 2265.04 mGy-cm. Automated exposure control was utilized for the study. A dose lowering technique was utilized adhering to the principles of ALARA. COMPARISON: No relevant prior studies available. FINDINGS: Limitations: Limited evaluation in the absence of contrast. Please note that detection of neoplasm is extremely limited in the absence of contrast. Recommend continued further workup as dictated per patient's primary malignancy. Lung bases: Unremarkable. No mass. No consolidation. Heart: Coronary artery calcifications. ABDOMEN: Liver: Unremarkable. Gallbladder and bile ducts: Unremarkable. No calcified stones. No ductal dilation. Pancreas: Unremarkable. No ductal dilation. Spleen: Unremarkable. No splenomegaly. Adrenals: Unremarkable. No mass. Kidneys and ureters: No evidence of obstructive renal calculi or signs of collecting system dilatation. Nonobstructive calculus in the inferior pole of the left kidney measuring up to 7 mm. Simple bilateral renal cysts. No follow-up of these simple cysts is necessary. Stomach and bowel: No evidence of bowel obstruction. Colonic diverticulosis. No evidence of diverticulitis. PELVIS: Appendix: Normal appendix. Bladder: Unremarkable. No stones. Reproductive: Unremarkable as visualized. ABDOMEN and PELVIS: Intraperitoneal space: Unremarkable. No free air. No significant fluid collection. Bones/joints: Degenerative changes in the spine. No acute fracture. No dislocation. Soft tissues: Left breast mass measuring up to 2.7 cm with calcifications. Recommend further workup with dedicated mammography. Bilateral inguinal hernia containing fat. Umbilical hernia containing fat. Vasculature: Atherosclerotic disease. Lymph nodes: Unremarkable. No enlarged lymph nodes. IMPRESSION: 1. Limited evaluation in the absence of contrast. Please note that detection of neoplasm is extremely limited in the absence of contrast. Recommend continued further workup as dictated per patient's primary malignancy. 2. No evidence of obstructive renal calculi or signs of collecting system dilatation. 3. Left breast mass measuring up to 2.7 cm with calcifications. Recommend further workup with dedicated mammography. Electronically signed by: Lucio Rodriguez MD 08/14/23 04:[address] 08/14/23 01:36 Exam(s): CT CHEST Without Contrast EXAM: CT Chest Without Intravenous Contrast CLINICAL HISTORY: Reason for exam: previous mediastinal LAD, dyspnea. TECHNIQUE: Axial computed tomography images of the chest without intravenous contrast. CTDI is 28.11 mGy and DLP is 2265.04 mGy-cm. Automated exposure control was utilized for the study. A dose lowering technique was utilized adhering to the principles of ALARA. COMPARISON: No relevant prior studies available. FINDINGS: Limitations: Limited examination the absence of contrast. Lungs: Centrilobular and paraseptal emphysema noted. No mass. No consolidation. Pleural space: Unremarkable. No pneumothorax. No significant effusion. Heart: Coronary artery calcifications. No cardiomegaly. No significant pericardial effusion. Bones/joints: Degenerative changes in the spine. Incidental note made of T10 hemangioma. No acute fracture. No dislocation. Soft tissues: Partially calcified left breast mass measuring up to 2.7 cm. Consider further dedicated mammographic imaging. Vasculature: Atherosclerotic disease. Lymph nodes: Unremarkable. No enlarged lymph nodes. IMPRESSION: 1. Limited examination the absence of contrast. 2. Partially calcified left breast mass measuring up to 2.7 cm. Consider further dedicated mammographic imaging. Electronically signed by: Lucio Rodriguez MD 08/14/23 04:46 AM 08/14/23 01:36 CT abd pelvis wo con Urgent CT chest diagnostic wo con Urgent Hospital Course (1) Acute hypoxic respiratory failure: -presented with progressive dyspnea w/ orthopnea in past 2 days, pulse ox at home read low 80s. Unclear etiology. Likely multifactorial due to stress, recent physical therapy, ?abd bloating. HDS. O2 Sat mid 90s on RA. Symptoms resolved spontaneously, ?after simethicone use. -CXR reassuring against acute processes -Viral panel was negative -Albuterol nebulizer PRN -Patient to continue taking Simethicone if needed for relief with gas -Discussed with the patient that the O2 reading at home could have been inaccurate. -f/u pcp (2) Chest pain: -Chest tightness w/ negative EKG and troponin x2. Now resolved. Unlikely to be cardiac source. -Did have normal dobutamine stress echocardiogram in 2020 -TTE from 08/14/2023 found mild concentric left ventricular hypertrophy with no regional wall motion abnormalities noted. Left ventricular systolic function is normal and Ejection Fraction is 65-70% -Tightness could be due anxiety or MSK. (3) Left breast mass: -CT of Abdomen and Pelvis revealed partially calcified left breast mass measuring up to 2.7 cm -Likely unrelated to presenting symptoms -Patient had prior imaging and biopsy a few years ago which was negative and did not reveal anything concerning. -Patient will continue to have this monitored by his PCP in the outpatient setting and have followup screening as needed. (4) Leukocytosis: -Mild leukocytosis of 13.5 on admission, now decreased to 13.42 on 08/14/2023 -Pt remains afebrile, no reported fever, chills, night sweats, etc -CXR does not suggest pneumonia -Procalcitonin < 0.05 (negative) -can recheck with pcp for resolution (5) CKD (chronic kidney disease) stage 3, GFR 30-59 ml/min: -This is chronic. Cr 1.67 on admission and at 1.47 on 08/14/2023, around baseline of Cr 1.5-1.7 (6) Diabetes mellitus, type II: -Last A1C around 7% in 2020. Repeat 8.1. -cont. home meds (7) Hyperlipidemia: -continue pravastatin (8) Hypertension: -Continue lisinopril, metoprolol, amlodipine 5 mg BID Total Time Total Time Spent Total Time Spent (In Minutes): <30 Discharge Plan Discharge Items Patient Disposition: Home - Self-Care Reason For Visit: RESP FAILURE Discharge Diagnosis: chest pain/tightness, possible anxiety attack, hypoxia Activity: Resume your previous activity Non-emergency contact: Primary Care Provider Call non-emergency contact if: you have any medication questions and you have a fever Follow-up/Referrals: Juanita Carlson PA-C [Primary Care Provider] - Diet: Carb Consistent or DM2 Addtl Attending Provider Instructions: You were admitted to the hospital for chest pain/tightness, hypoxia. You were treated with simethicone, benzonatate, albuterol nebulizer. A discharge summary will be sent to your primary care physician to ensure continuity of care. Please bring this discharge summary with you to your next office appointment so that your provider can review it at that time. Follow-up appointments: We have requested a follow-up appointment with your primary care physician within one week of discharge. Please call their office if you do not hear from them. Keep all your follow-up appointments as already scheduled. If you cannot make an appointment, notify your provider. Medications: Your medication list has been reviewed and reconciled upon discharge to ensure accuracy and continuity of care. An updated list of all your medications is included with your hospital discharge paperwork. Please review this list closely, and make note of any changes. Take your medications as instructed; do not skip a dose of your medicines. Make sure all of your doctors know every medicine you are taking (including [id number] medicines, vitamins, and supplements). Call your primary care provider before taking any new medicines (including [id number] medicines, vitamins, and supplements), because some of these may interact with your current medications, or may make your symptoms worse. Tell your primary care provider if you cannot afford your medications. CONTACT YOUR PRIMARY CARE PROVIDER if you experience any of the following: persistent hypoxia chest pain that radiates or which is accompanied by shortness of breath Difficulty following your treatment plan, or difficulty taking medications CALL 911 OR GO TO THE EMERGENCY DEPARTMENT if you experience any of the following: Sudden, severe abdominal pain or nausea/vomiting Severe chest pain, or chest pain that radiates (moves) to your jaw or arm Sudden, severe shortness of breath or difficulty breathing Thank you for allowing us to participate in your care Pending Studies at Discharge: No Stand-Alone Forms: My [facility], Smoking Cessation Medications and DC Order Prescriptions: Continued cetirizine 10 mg tablet 10 mg PO DAILY aspirin 81 mg tablet,delayed release (DR/EC) 81 mg PO DAILY cholecalciferol (vitamin D3) 2,000 unit Capsule 2,000 unit PO QAM pravastatin 40 mg Tablet 40 mg PO HS furosemide [Lasix] 20 mg tablet 20 mg PO DAILY PRN (Reason: WT GAIN 2+ LBS.) amoxicillin-pot clavulanate 875-125 mg tablet 1 tab PO BID Qty: 20 0RF metoprolol tartrate [Lopressor] 50 mg Tablet 25 mg PO BID lisinopril 5 mg Tablet 5 mg PO DAILY glipizide 5 mg Tablet 5 mg PO BID alogliptin 12.5 mg Tablet 12.5 mg PO DAILY potassium chloride 20 mEq Tablet Extended Release 20 meq PO BID amlodipine 5 mg Tablet 5 mg PO Q12 Qty: 0 0RF cyanocobalamin (vitamin B-12) [Vitamin B-12] 500 mcg Tablet 500 mcg PO DAILY lidocaine [Lidoderm] 5 % adhesive patch,medicated 1 patch TOP DAILY PRN (Reason: pain) Qty: 15 0RF Rx Instructions: leave on most painful area for up to 12 hrs tramadol 50 mg tablet 50 mg PO BID PRN (Reason: pain) Qty: 10 0RF Discharge Orders: Discharge Order (Routine); Ordered 08/14/23 Ordered By: Jordan Glasgow/Other Patient Handouts: Managing Type 2 Diabetes Admission Data Admit Date/Time: 08/14/23 01:07 Attending Provider: Tramaine Rose Admit Provider: Suyapa Sherwood Primary Care Provider: Juanita Carlson Other Providers: Fransico Vazquez Other Interventions: Discharge Summary Assessment (RN) Last Done: 08/14/23 15:54 Supervising Physician Co-Signing Physician Notes I personally examined the patient and verified all philippe points of history and exam, discussed case, and agree with decision making with Dr Meza and Pedro Pena MS2 Feeling better and feels up to going home. pressure in his chest has resolved. Wonders if it was muscle strain versus stress/anxiety. At any rate feels up to going home. Also notes that the breast mass has been previously identified and biopsied, he believes a few years ago here (review of records going back to about 2018 does not show any pathology reports in our system), he notes it was benign then but has been essentially lost to follow-up since. Vitals noted, in general he is awake and alert pleasant no distress. HEENT normocephalic atraumatic mucous membranes moist. Breathing unlabored no accessory muscle use good effort. Skin shows no rashes no pallor or icterus. Left chest wall shows a bilobed 1 inch firm nontender mobile mass in his left breast tissue, no skin changes. Chest pressuremost likely muscle strain or anxiety, or components of both. I suspect his pulse ox reading of 83% at home was an error given that he has not shown any significant hypoxia here at all, and no significant cardiopulmonary pathology. Safe/stable for home, outpatient follow-up. He follows with physical therapy and psychiatry. Breast massreassuring that it was biopsied and benign, but still has been lost to follow-upordered diagnostic mammogram, depending on findings and comparative results, potentially may need repeat biopsy, but doubtful given its apparent longstanding stability. PCP to follow-up on this.
--- NOTE | 2023-08-14 18:21 | Billing Data ---
Date of Service August 14, 2023 Coding Level of Care Code 91488 IN/OBS DISCH 30 MIN/LESS
[2023-08-14] MEDS ORDERED: PRAVASTATIN SOD 40 MG TAB PO SCH (21:00)
--- NOTE | 2023-08-15 05:15 | Billing Data ---
Date of Service August 15, 2023 Coding Level of Care Code 59508 INT INP/OBS CARE
== END 2023-08-14 18:25 | disposition home or self-care (01) | DRG 204 ==
LOC: ED 21:45 → SUATTDRO 08-14 01:07 → 3W 08-14 01:07
DX: E11.65 Type 2 diabetes mellitus with hyperglycemia; E11.22 Type 2 diabetes mellitus with diabetic chronic kidney disease; Y92.009 Unspecified place in unspecified non-institutional (private) residence as the place of occurrence of the external cause; Z79.84 Long term (current) use of oral hypoglycemic drugs; Z79.82 Long term (current) use of aspirin; E66.2 Morbid (severe) obesity with alveolar hypoventilation; E78.5 Hyperlipidemia, unspecified; R06.00 Dyspnea, unspecified; N63.20 Unspecified lump in the left breast, unspecified quadrant; S29.019A Strain of muscle and tendon of unspecified wall of thorax, initial encounter; J44.1 Chronic obstructive pulmonary disease with (acute) exacerbation; X58.XXXA Exposure to other specified factors, initial encounter; I45.10 Unspecified right bundle-branch block; N18.30 Chronic kidney disease, stage 3 unspecified; I12.9 Hypertensive chronic kidney disease with stage 1 through stage 4 chronic kidney disease, or unspecified chronic kidney disease

== ENCOUNTER 2023-09-08 21:45 | Inpatient (IN) ==
[2023-09-08 22:24] LABS: Basophils # (auto) 0.08 K/uL (0.00-0.20); Basophils % (auto) 0.8 %; Eosinophils # (auto) 0.25 K/uL (0.00-0.50); Eosinophils % (auto) 2.5 %; Hemoglobin 17.2 g/dl (14.0-18.0); Immature Granulocytes # (auto) 0.11 K/uL (0.01-0.20); Immature Granulocytes % (auto) 1.1 %; Lymphocytes # (auto) 1.78 K/uL (1.20-3.40); Lymphocytes % (auto) 17.8 %; Mean Corpuscular Hemoglobin 31.7 pg (25.0-34.0); Mean Corpuscular Hgb Conc 35.8 g/dL (32.0-36.0); Mean Corpuscular Volume 88.6 fL (80.0-100.0); Mean Platelet Volume 9.6 fL (9.4-12.4); Monocytes # (auto) 1.52 K/uL (0.11-0.59); Monocytes % (auto) 15.2 %; Neutrophils # (auto) 6.27 K/uL (1.40-6.50); Neutrophils % (auto) 62.6 %; Platelet Count 228 K/uL (130-400); RDW Coefficient of Variation 14.9 % (11.5-14.5); RDW Standard Deviation 48.2 fL (36.4-46.3); Red Blood Count 5.42 M/uL (4.70-6.10); White Blood Count 10.01 K/ul (4.8-10.8)
[2023-09-08] MEDS ORDERED: ALBUT/IPRATROP 3MG/0.5MG NEB 3 ML VIAL NEB STA (22:37)
[2023-09-08] MEDS ORDERED: PIPERACILLIN/TAZOBACTAM 4.5 GM/100 ML BAG IV ONE (22:38)
[2023-09-08 22:39] LABS: Albumin Globulin Ratio 1.3 (0.9-2); Albumin Level 4.3 gm/dl (3.4-5.0); BUN Creatinine Ratio 9.4 (10-20); Bilirubin,Total 0.8 mg/dl (0.2-1.0); Calcium 9.6 mg/dl (8.6-10.3); Creatinine Clr Calc Pharmacy 39.1 ml/min; Est GFR (African American) 43.5 ml/min; Est GFR (Non-African American) 37.5 ml/min; Globulin 3.4 gm/dl (2.5-4.0); Potassium 4.1 mmol/L (3.5-5.1); Total Protein 7.7 gm/dl (6.0-8.3)
[2023-09-08 22:46] LABS: Troponin I High Sensitivity 9.8 pg/ml (0-20)
[2023-09-08 23:02] LABS: Magnesium 1.8 mg/dl (1.7-2.4)
[2023-09-08 23:12] LABS: Adenovirus PCR Not Detected (NotDetected); Bordetella parapertussis PCR Not Detected (NotDetected); Bordetella pertussis PCR Not Detected (NotDetected); Chlamydia pneumoniae PCR Not Detected (NotDetected); Coronavirus 229E PCR Not Detected (NotDetected); Coronavirus HKU1 PCR Not Detected (NotDetected); Coronavirus NL63 PCR Not Detected (NotDetected); Coronavirus OC43PCR Not Detected (NotDetected); Human Metapneumovirus PCR Not Detected (NotDetected); Influenza A PCR Not Detected (NotDetected); Influenza B PCR Not Detected (NotDetected); Mycoplasma pneumoniae PCR Not Detected (NotDetected); Parainfluenza Virus 1 PCR Not Detected (NotDetected); Parainfluenza Virus 2 PCR Not Detected (NotDetected); Parainfluenza Virus 3 PCR Not Detected (NotDetected); Parainfluenza Virus 4 PCR Not Detected (NotDetected); Respiratory Syncytial VirusPCR Not Detected (NotDetected); Rhinovirus/Enterovirus PCR Not Detected (NotDetected)
--- NOTE | 2023-09-08 23:31 | Emergency Department Note ---
History of Present Illness General Chief complaint: Flu Like Symptoms Stated complaint: HAVEN'T SLEPT IN TWO DAYS, WEAK, CHILLS, COUGH Time Seen by Provider: 09/08/23 22:16 History of Present Illness This 78 yo M PMH HTN, HLD, DM2, CKD3 presents to the ER c/o fever, chills, cough, congestion and generalized illness for the past few days steadily getting worse. Patient states he feels quite weak. Patient denies abdominal pain, vomiting, diarrhea, headache, neck stiffness. Home Medications Medication Instructions Recorded Confirmed Type cholecalciferol (vitamin D3) 50 2,000 unit PO QAM 09/20/18 05/31/22 History mcg (2,000 unit) capsule pravastatin 40 mg tablet 40 mg PO HS 09/20/18 05/31/22 History alogliptin 12.5 mg tablet 12.5 mg PO DAILY 05/19/21 05/31/22 History glipizide 5 mg tablet 5 mg PO BID 05/19/21 05/31/22 History lisinopril 5 mg tablet 5 mg PO DAILY 05/19/21 05/31/22 History metoprolol tartrate 50 mg tablet 25 mg PO BID 05/19/21 05/31/22 History (Lopressor) potassium chloride 20 mEq 20 meq PO BID 05/19/21 05/31/22 History tablet,extended release aspirin 81 mg tablet,delayed 81 mg PO DAILY 06/20/21 05/31/22 History release cetirizine 10 mg tablet 10 mg PO DAILY 06/20/21 05/31/22 History furosemide 20 mg tablet (Lasix) 20 mg PO DAILY PRN WT GAIN 2+ LBS. 07/27/21 05/31/22 History amlodipine 5 mg tablet 5 mg PO Q12 #0 tabs 08/23/21 05/31/22 Rx cyanocobalamin (vitamin B-12) 500 500 mcg PO DAILY 03/28/22 05/31/22 History mcg tablet (Vitamin B-12) amoxicillin 875 mg-potassium 1 tab PO BID #20 tabs 05/31/22 Rx clavulanate 125 mg tablet lidocaine 5 % topical patch 1 patch topical DAILY PRN pain #15 10/17/22 Rx (Lidoderm) ea tramadol 50 mg tablet 50 mg PO BID PRN pain #10 tabs 11/11/22 Rx Allergies Allergy/AdvReac Type Severity Reaction Status Date / Time Influenza Virus Vaccines Allergy Unknown Verified 05/31/22 00:45 atorvastatin AdvReac Intermediate Cramping Verified 05/31/22 00:45 of the Muscles simvastatin AdvReac Intermediate Cramping Verified 05/31/22 00:45 of the Muscles Past Med/Surg History Medical History Cervical pain (neck) Pulmonary nodules Dyspnea on exertion Orthopnea Osteoarthritis Nephrolithiasis CKD (chronic kidney disease) stage 3, GFR 30-59 ml/min Hyperlipidemia Diabetes mellitus, type II Vision loss of left eye Hypertension Surgical History Hx of cystoscopy STENT INSERTION AND NOW HAS CHRONIC PAIN IN LEFT LEG SINCE SURGERY H/O eye surgery RETINA REPAIR IN BOTH EYES Family History Father Congestive heart failure Mother Cancer Social History Smoking Status: Former smoker Tobacco Type: Cigarettes Second Hand Exposure: Yes; Do You Dip or Chew Tobacco: No; Hx Alcohol Use: No Hx Substance Use: No Preferred Language: Cambodian Communication Ability: Effective Visual Impairment: Partially Limited Assembling Fabricator Required: No Beliefs That Will Affect Care: None marital status: Current Living Situation: Spouse current occupational status: retired Feels Safe at Home: Yes Assistive Devices: None Review of Systems A total of 10 systems reviewed and were otherwise negative Physical Exam Vital Signs Vital Signs - 24 hr 09/08/23 21:49 09/08/23 22:55 09/08/23 23:00 Temperature 36.9 C Temperature Source Temporal Artery Scan Pulse Rate 90 74 Pulse Rhythm Regular Pulse Strength Normal Respiratory Rate 19 Respiratory Effort / Characteristics Non-Labored Spontaneous Respiratory Depth Normal Respiratory Pattern Regular Blood Pressure 161/74 H Blood Pressure Mean 103 Blood Pressure Position Sitting Pulse Oximetry 92 88 L Oxygen Delivery Method Room Air Room Air Oxygen Flow Rate Sepsis Recent Fever Within 48 Hours No Sepsis New/Unexplained Change in Mental Status N/A Sepsis Action Taken by Nursing No Action Required 09/08/23 23:15 Temperature Temperature Source Pulse Rate Pulse Rhythm Pulse Strength Respiratory Rate Respiratory Effort / Characteristics Respiratory Depth Respiratory Pattern Blood Pressure Blood Pressure Mean Blood Pressure Position Pulse Oximetry 94 Oxygen Delivery Method Nasal Cannula Oxygen Flow Rate 3 Sepsis Recent Fever Within 48 Hours Sepsis New/Unexplained Change in Mental Status Sepsis Action Taken by Nursing VITALS: Vitals are noted on the nurse's note and reviewed by myself. Vital signs stable. GENERAL: Elderly male, in no acute distress, nondiaphoretic, well-developed well-nourished. SKIN: Capillary reflex less than 2 seconds. HEENT: Normocephalic. PERRLA. EOMI. Nares patent. Mucous membranes moist. Neck is supple without nuchal rigidity. HEART: Regular rate and rhythm LUNGS: Mild diffuse end expiratory wheezes, No retractions or accessory muscle use. ABDOMEN: Positive bowel sounds x 4. Normal tympanic percussion. Soft, nontender, without masses or organomegaly. Little sign negative. No guarding or rebound tenderness. MUSCULOSKELETAL: No gross musculoskeletal defects. NEURO: Patient was alert and oriented to person place and time. No focal neurological deficits. Course Administered Medications Discontinued Medications Albuterol (Albut/Ipratrop 3mg/0.5mg Neb 3 Ml Vial) 3 ml NEB NOW STA; Protocol Stop: 09/08/23 22:38 Last Admin: 09/08/23 23:00 Dose: 3 ml Documented By: Piperacillin Sod/Tazobactam Sod (Zosyn) 4.5 gm in 100 mls @ 200 mls/hr IV NOW ONE Stop: 09/08/23 23:07 Last Admin: 09/08/23 23:37 Dose: 200 mls/hr Documented By: Medical Decision Making Medical Records Attestation: I reviewed the patient's medical records. Home Medications Current Medication List: was personally reviewed by al Laboratory Data Attestation: I reviewed the patient's lab results. 09/08/23 22:01 09/08/23 22:01 Lab Results 09/08/23 09/08/23 09/08/23 Range/Units 22:01 23:30 Unknown WBC 10.01 (4.8-10.8) K/ul RBC 5.42 (4.70-6.10) M/uL Hgb 17.2 (14.0-18.0) g/dl Hct 48.0 (42.0-52.0) % MCV 88.6 (80.0-100.0) fL MCH 31.7 (25.0-34.0) pg MCHC 35.8 (32.0-36.0) g/dL RDW Std Deviation 48.2 H (36.4-46.3) fL RDW Coeff of Mark 14.9 H (11.5-14.5) % Plt Count 228 (130-400) K/uL MPV 9.6 (9.4-12.4) fL Immature Gran % (Auto) 1.1 % Neut % (Auto) 62.6 % Lymph % (Auto) 17.8 % [place] % (Auto) 15.2 % Eos % (Auto) 2.5 % Baso % (Auto) 0.8 % Neut # (Auto) 6.27 (1.40-6.50) K/uL Lymph # (Auto) 1.78 (1.20-3.40) K/uL [place] # (Auto) 1.52 H (0.11-0.59) K/uL Eos # (Auto) 0.25 (0.00-0.50) K/uL Baso # (Auto) 0.08 (0.00-0.20) K/uL Immature Gran # (Auto) 0.11 (0.01-0.20) K/uL Sodium 134 L (136-145) mmol/L Potassium 4.1 (3.5-5.1) mmol/L Chloride 102 (98-107) mmol/L Carbon Dioxide 23 (21-32) mmol/L Anion Gap 9 (3-11) BUN 16 (6-23) mg/dl Creatinine 1.71 H (0.6-1.4) mg/dl Est Cr Clr Drug Dosing 39.1 ml/min Est GFR ( Amer) 43.5 ml/min Est GFR (Non-Af Amer) 37.5 ml/min BUN/Creatinine Ratio 9.4 L (10-20) Glucose 118 H (70-99(Fasting)) mg/dl Lactate 1.2 (0.4-2.0) mmol/L Calcium 9.6 (8.6-10.3) mg/dl Magnesium 1.8 (1.7-2.4) mg/dl Total Bilirubin 0.8 (0.2-1.0) mg/dl AST 25 (13-39) U/L ALT 21 (7-52) U/L Alkaline Phosphatase 103 (34-104) U/L Total Creatine Kinase 40 (30-223) U/L Troponin I High Sens 9.8 (0-20) pg/ml Total Protein 7.7 (6.0-8.3) gm/dl Albumin 4.3 (3.4-5.0) gm/dl Globulin 3.4 (2.5-4.0) gm/dl Albumin/Globulin Ratio 1.3 (0.9-2) Procalcitonin 0.09 (0-0.5) ng/ml Adenovirus (PCR) Not Detected (NotDetected) B. pertussis DNA (PCR) Not Detected (NotDetected) B.parapertussis DNA PCR Not Detected (NotDetected) C. pneumoniae DNA (PCR) Not Detected (NotDetected) Coronavirus OC43 (PCR) Not Detected (NotDetected) Coronavirus HKU1 (PCR) Not Detected (NotDetected) Coronavirus 229E (PCR) Not Detected (NotDetected) SARS-CoV-2 (PCR) DETECTED A* (NotDetected) Coronavirus NL63 (PCR) Not Detected (NotDetected) Human Metapneumovir PCR Not Detected (NotDetected) Influenza Type A (PCR) Not Detected (NotDetected) Influenza Type B (PCR) Not Detected (NotDetected) M. pneumoniae (PCR) Not Detected (NotDetected) Parainfluenza 1 (PCR) Not Detected (NotDetected) Parainfluenza 2 (PCR) Not Detected (NotDetected) Parainfluenza 3 (PCR) Not Detected (NotDetected) Parainfluenza 4 (PCR) Not Detected (NotDetected) RSV (PCR) Not Detected (NotDetected) Entero/Rhino (PCR) Not Detected (NotDetected) Imaging Data Attestation: I personally reviewed and interpreted this imaging study as follows: MDM Narrative Prior records/ancillary studies reviewed and summarized above. Nursing notes reviewed. Additional history obtained from family. The patient's history was concerning for cough, congestion, dyspnea fever and chills. Differential diagnosis: Etiologies such as metabolic, infection, hypo/hyperglycemia, electrolyte abnormalities, cardiac sources, intracerebral event, toxicologic, neurologic, as well as others were entertained. Physical examination: As above. ER treatment provided: IV Lock An order was placed for continuous cardiac monitoring. The monitor shows a rate of 60-100 with a sinus rhythm per my interpretation. Nebulizer, Zosyn, Decadron was given On reassessment the patient felt better. Diagnostics interpretation by me: ECG: Ordered for dyspnea EKG: Normal sinus, right bundle, Q waves in inferior leads, rate of 82. Impression normal sinus rhythm with a right bundle branch block Q waves in inferior leads independently interpreted by myself The labs Independently Interpreted by myself revealed negative procalcitonin. Creat 1.7. Glucose 118. No worrisome leukocytosis. Negative troponin Positive COVID on [employer] Imaging studies: Chest x-ray concerning for right lower lobe pneumonia per my independent interpretation CURB Score: Confusion: 0 Urea (BUN > 19): 0 Respiratory Rate (>30/min): 0 Blood Pressure: Diastolic <60 or Systolic <90 0 Age (>= 65) 1 Total (0-1 low risk, 2-5 high risk): 1 Consultation: A consultation was placed with the hospitalist. The case was discussed and diagnostics were reviewed. The patient was evaluated in the ER for further treatment. Exam and history seem consistent with COVID-pneumonia. Patient was hypoxic on room air and improved on nasal cannula. He does not normally wear oxygen. He still feels quite short of breath and was ill-appearing. Medicine was consulted and the case discussed. Patient be admitted to the medical service for further evaluation and treatment. He was medicated as above. Patient is agreeable. By the evaluation outlined above emergent etiologies such as electrolyte abnormalities, cardiac sources, intracerebral event, toxologic, neurologic, abnormalities blood glucose, metabolic, as well as others were deemed relatively unlikely. The pt informed about the findings as listed above. All questions were answered and pleased with the treatment. The chart was completed utilizing [employer] Speech voice recognition software. Grammatical errors, random word insertions, pronoun errors, and incomplete sentences are an occassional consequence of this system due to software limitations, ambient noise, and hardware issues. Any formal questions or concerns about the content, text, or information contained within the body of this dictation should be directly addressed to the physician child and youth program assistant for clarification. Impression & Plan Pneumonia due to COVID-19 virus, Hypoxic Discharge Plan Visit Data Chief Complaint: Flu Like Symptoms Stated Complaint: HAVEN'T SLEPT IN TWO DAYS, WEAK, CHILLS, COUGH ED Provider: Stacy Moscoso ED Midlevel Provider: Shira Boland Discharge Problem: Pneumonia due to COVID-19 virus, Hypoxic Patient Disposition: Admitted As Inpatient Condition: Fair Forms Stand Alone Forms: My [facility] Prescriptions Prescriptions: No Action cetirizine 10 mg tablet 10 mg PO DAILY aspirin 81 mg tablet,delayed release (DR/EC) 81 mg PO DAILY cholecalciferol (vitamin D3) 2,000 unit Capsule 2,000 unit PO QAM pravastatin 40 mg Tablet 40 mg PO HS furosemide [Lasix] 20 mg tablet 20 mg PO DAILY PRN (Reason: WT GAIN 2+ LBS.) amoxicillin-pot clavulanate 875-125 mg tablet 1 tab PO BID Qty: 20 0RF metoprolol tartrate [Lopressor] 50 mg Tablet 25 mg PO BID lisinopril 5 mg Tablet 5 mg PO DAILY glipizide 5 mg Tablet 5 mg PO BID alogliptin 12.5 mg Tablet 12.5 mg PO DAILY potassium chloride 20 mEq Tablet Extended Release 20 meq PO BID amlodipine 5 mg Tablet 5 mg PO Q12 Qty: 0 0RF cyanocobalamin (vitamin B-12) [Vitamin B-12] 500 mcg Tablet 500 mcg PO DAILY lidocaine [Lidoderm] 5 % adhesive patch,medicated 1 patch TOP DAILY PRN (Reason: pain) Qty: 15 0RF Rx Instructions: leave on most painful area for up to 12 hrs tramadol 50 mg tablet 50 mg PO BID PRN (Reason: pain) Qty: 10 0RF Referrals Referrals: Juanita Carlson PA-C [Primary Care Provider] -
[2023-09-08 23:41] LABS: Coronavirus CoV-2 (COVID19)PCR DETECTED (NotDetected)
[2023-09-09] MEDS ORDERED: dexAMETHasone**PF** 10 MG/ML VIAL IV ONE (00:23)
--- NOTE | 2023-09-09 00:52 | Emergency Department Note ---
ED Visit Note I was consulted by the Advanced Practice Provider. I approved the management plan. I reviewed -History/Physical by ARMOND -MDM -I independently interpreted the following studies: labs and cxr .
--- NOTE | 2023-09-09 01:14 | History & Physical Report ---
Date of Service September 09, 2023 Assessment & Plan (1) COVID: Plan: 78 yo male with PMHx of HTN, HLD, DM2, and CKD stage 3 presents with weakness. #Covid #Acute hypoxic respiratory failure -presented with 2 days chills, sob, and weakness. +covid in ED. Requiring 3L O2 NC. No leukocytosis. Procal neg. CXR per my read with chronic interstitial thickening and no focal consolidation. Blood cx pending. Low suspicion for superimposed pneumonia at this time. Received zosyn, dexamethasone, duoneb in ED. Will defer further abx to day team. -cont. dexamethasone -started remdesivir -duoneb prn -PT/OT #CKD, stage 3 -on admission Cr 1.7. Baseline ~1.5-1.7. Encouraged oral fluid intake. Monitor. #HLD -cont. statin #HTN -cont. amlodipine, lisinopril, metoprolol #DM2 -hold home meds -started on SSI DVT ppx: heparin SQ FEN/GI: HH, DM2 Code Status: full Dispo: med tele (2) Acute hypoxic respiratory failure: (3) Hypertension: (4) Hyperlipidemia: (5) Diabetes mellitus, type II: (6) CKD (chronic kidney disease) stage 3, GFR 30-59 ml/min: (7) SOB (shortness of breath): History of Present Illness Chief Complaint: weakness Primary Care Provider: Juanita Carlson PA-C 78 yo male with PMHx of HTN, HLD, DM2, and CKD stage 3 presents with weakness. 2 days ago patient started experiencing chills/rigors and shortness of breath. The chills have improved but earlier today he felt extremely weak which prompted him to come to emergency room. Denies fevers, headache, chest pain, fatigue, abdomi nal pain, nausea, vomiting, diarrhea, dysuria. He is not on oxygen at baseline. Allergies Allergy/AdvReac Type Severity Reaction Status Date / Time Influenza Virus Vaccines Allergy Unknown Verified 09/09/23 02:30 atorvastatin AdvReac Intermediate Cramping Verified 09/09/23 02:30 of the Muscles simvastatin AdvReac Intermediate Cramping Verified 09/09/23 02:30 of the Muscles Home Medications Medication Instructions Recorded Confirmed Type cholecalciferol (vitamin D3) 50 2,000 unit PO QAM 09/20/18 09/09/23 History mcg (2,000 unit) capsule pravastatin 40 mg tablet 40 mg PO HS 09/20/18 09/09/23 History alogliptin 12.5 mg tablet 12.5 mg PO DAILY 05/19/21 09/09/23 History glipizide 5 mg tablet 5 mg PO BID 05/19/21 09/09/23 History lisinopril 5 mg tablet 5 mg PO DAILY 05/19/21 09/09/23 History potassium chloride 20 mEq 20 meq PO BID 05/19/21 09/09/23 History tablet,extended release aspirin 81 mg tablet,delayed 81 mg PO DAILY 06/20/21 09/09/23 History release cetirizine 10 mg tablet 10 mg PO DAILY 06/20/21 09/09/23 History amlodipine 5 mg tablet 5 mg PO Q12 #0 tabs 08/23/21 09/09/23 Rx cyanocobalamin (vitamin B-12) 500 500 mcg PO DAILY 03/28/22 09/09/23 History mcg tablet (Vitamin B-12) Past Med/Surg History Medical History (Updated 09/09/23 @ 02:44 by Star Meza DO) Hypoxic Pneumonia due to COVID-19 virus Hyperglycemia Leukocytosis Leukocytosis Chest pain Acute dyspnea Encounter for pre-operative examination Acute kidney injury superimposed on CKD Cervical pain (neck) Pulmonary nodules Dyspnea on exertion Orthopnea Osteoarthritis Nephrolithiasis CKD (chronic kidney disease) stage 3, GFR 30-59 ml/min Hyperlipidemia Diabetes mellitus, type II Vision loss of left eye Hypertension Surgical History Hx of cystoscopy STENT INSERTION AND NOW HAS CHRONIC PAIN IN LEFT LEG SINCE SURGERY H/O eye surgery RETINA REPAIR IN BOTH EYES Family History Father Congestive heart failure Mother Cancer Social History Smoking Status: Former smoker Tobacco Type: Cigarettes Smoking End Date: 1969; Second Hand Exposure: Yes; Do You Dip or Chew Tobacco: No; Hx Alcohol Use: No Hx Substance Use: No Preferred Language: Turkish Communication Ability: Effective Visual Impairment: Partially Limited Mapping Analyst Required: No Beliefs That Will Affect Care: None marital status: Current Living Situation: Alone current occupational status: retired Other Information That Helps Us Care for You: No Feels Safe at Home: Yes Safety Concerns: Feels Safe At This Time Assistive Devices: Glasses Review of Systems Review of Systems: All systems reviewed & are unremarkable except as noted in HPI & below Physical Exam Physical Exam: Constitutional: in no acute distress, pleasant and normal affect, intact memory. AOx3. Vitals as above. HEENT: No scleral injection or discharge. Moist mucous membranes. Neck: Supple without lymphadenopathy. Trachea midline. Lungs: Clear to auscultation bilaterally with good effort. No wheezes/rales/rhonchi. Cardiac: Regular rate and rhythm.No murmurs. 1+ lower extremity non pitting edema bilaterally. 2+ distal peripheral pulses. Abdomen: Bowel sounds present. Distended. Soft. Nontender. No guarding. No hepatosplenomegaly. MSK: No cyanosis or clubbing. Extremities motor strength 5/5. Skin: No rashes, warm, dry. Neurologic: no focal deficits Results & Data Results & Data Vital Signs (Past 12 Hours) Vital Signs Temp Pulse Resp BP Pulse Ox O2 Del Method O2 Flow Rate 09/09/23 00:02 78 18 142/67 H 94 Nasal Cannula 3 09/09/23 00:02 142/67 H 09/08/23 23:15 94 Nasal Cannula 3 09/08/23 23:03 75 18 143/67 H 90 Nasal Cannula 3 09/08/23 23:00 88 L Room Air 09/08/23 22:55 74 09/08/23 21:49 36.9 C 90 19 161/74 H 92 Room Air Laboratory Results Laboratory Results WBC 10.01 K/ul (4.8-10.8) 09/08/23 22:01 RBC 5.42 M/uL (4.70-6.10) 09/08/23 22:01 Hgb 17.2 g/dl (14.0-18.0) 09/08/23 22:01 Hct 48.0 % (42.0-52.0) 09/08/23 22:01 MCV 88.6 fL (80.0-100.0) 09/08/23 22:01 MCH 31.7 pg (25.0-34.0) 09/08/23 22:01 MCHC 35.8 g/dL (32.0-36.0) 09/08/23 22:01 RDW Std Deviation 48.2 fL (36.4-46.3) H 09/08/23 22:01 RDW Coeff of Mark 14.9 % (11.5-14.5) H 09/08/23 22:01 Plt Count 228 K/uL (130-400) 09/08/23 22:01 MPV 9.6 fL (9.4-12.4) 09/08/23 22:01 Immature Gran % (Auto) 1.1 % 09/08/23 22:01 Neut % (Auto) 62.6 % 09/08/23 22: Lymph % (Auto) 17.8 % 09/08/23 22:01 [place] % (Auto) 15.2 % 09/08/23 22:01 Eos % (Auto) 2.5 % 09/08/23 22:01 Baso % (Auto) 0.8 % 09/08/23 22:01 Neut # (Auto) 6.27 K/uL (1.40-6.50) 09/08/23 22:01 Lymph # (Auto) 1.78 K/uL (1.20-3.40) 09/08/23 22:01 [place] # (Auto) 1.52 K/uL (0.11-0.59) H 09/08/23 22:01 Eos # (Auto) 0.25 K/uL (0.00-0.50) 09/08/23 22:01 Baso # (Auto) 0.08 K/uL (0.00-0.20) 09/08/23 22:01 Immature Gran # (Auto) 0.11 K/uL (0.01-0.20) 09/08/23 22:01 Sodium 134 mmol/L (136-145) L 09/08/23 22:01 Potassium 4.1 mmol/L (3.5-5.1) 09/08/23 22:01 Chloride 102 mmol/L (98-107) 09/08/23 22:01 Carbon Dioxide 23 mmol/L (21-32) 09/08/23 22:01 Anion Gap 9 (3-11) 09/08/23 22:01 BUN 16 mg/dl (6-23) 09/08/23 22:01 Creatinine 1.71 mg/dl (0.6-1.4) H 09/08/23 22:01 Est Cr Clr Drug Dosing 39.1 ml/min 09/08/23 22:01 Est GFR ( Amer) 43.5 ml/min 09/08/23 22:01 Est GFR (Non-Af Amer) 37.5 ml/min 09/08/23 22:01 BUN/Creatinine Ratio 9.4 (10-20) L 09/08/23 22:01 Glucose 118 mg/dl (70-99(Fasting)) H 09/08/23 22:01 Lactate 1.2 mmol/L (0.4-2.0) 09/08/23 23:30 Calcium 9.6 mg/dl (8.6-10.3) 09/08/23 22:01 Magnesium 1.8 mg/dl (1.7-2.4) 09/08/23 22:01 Total Bilirubin 0.8 mg/dl (0.2-1.0) 09/08/23 22:01 AST 25 U/L (13-39) 09/08/23 22:01 ALT 21 U/L (7-52) 09/08/23 22:01 Alkaline Phosphatase 103 U/L (34-104) 09/08/23 22:01 Total Creatine Kinase 40 U/L (30-223) 09/08/23 22:01 Troponin I High Sens 9.8 pg/ml (0-20) 09/08/23 22:01 B-Natriuretic Peptide 36 pg/ml (0-100) 09/08/23 23:30 Total Protein 7.7 gm/dl (6.0-8.3) 09/08/23 22:01 Albumin 4.3 gm/dl (3.4-5.0) 09/08/23 22:01 Globulin 3.4 gm/dl (2.5-4.0) 09/08/23 22:01 Albumin/Globulin Ratio 1.3 (0.9-2) 09/08/23 22:01 Procalcitonin 0.09 ng/ml (0-0.5) 09/08/23 22:01 Adenovirus (PCR) Not Detected (NotDetected) 09/08/23 Unknown B. pertussis DNA (PCR) Not Detected (NotDetected) 09/08/23 Unknown B.parapertussis DNA PCR Not Detected (NotDetected) 09/08/23 Unknown C. pneumoniae DNA (PCR) Not Detected (NotDetected) 09/08/23 Unknown Coronavirus OC43 (PCR) Not Detected (NotDetected) 09/08/23 Unknown Coronavirus HKU1 (PCR) Not Detected (NotDetected) 09/08/23 Unknown Coronavirus 229E (PCR) Not Detected (NotDetected) 09/08/23 Unknown SARS-CoV-2 (PCR) DETECTED (NotDetected) A* 09/08/23 Unknown Coronavirus NL63 (PCR) Not Detected (NotDetected) 09/08/23 Unknown Human Metapneumovir PCR Not Detected (NotDetected) 09/08/23 Unknown Influenza Type A (PCR) Not Detected (NotDetected) 09/08/23 Unknown Influenza Type B (PCR) Not Detected (NotDetected) 09/08/23 Unknown M. pneumoniae (PCR) Not Detected (NotDetected) 09/08/23 Unknown Parainfluenza 1 (PCR) Not Detected (NotDetected) 09/08/23 Unknown Parainfluenza 2 (PCR) Not Detected (NotDetected) 09/08/23 Unknown Parainfluenza 3 (PCR) Not Detected (NotDetected) 09/08/23 Unknown Parainfluenza 4 (PCR) Not Detected (NotDetected) 09/08/23 Unknown RSV (PCR) Not Detected (NotDetected) 09/08/23 Unknown Entero/Rhino (PCR) Not Detected (NotDetected) 09/08/23 Unknown Supervising Physician Co-Signing Physician Notes Patient seen and examined, chart reviewed, case discussed with Dr. Meza and I agree with the assessment and plan as above. In brief, patient is a 78yo male with history of HTN, HLP, DM and CKD presenting with 2 days of chills/rigors and SOB. POSITIVE for Covid-19 infection. Hypoxic in the ER to 88% on room air. Now on NC with improved saturations On exam he is resting comfortably, sitting up in bed, NAD Skin - intact, no rash HEENT - MMM, Neck Supple Heart - +S1/S2, regular, no m/r/g Lungs - CTA, no rales/rhonchi/wheezes Abd - +BS, soft, NT/ND Ext - warm, well perfused Labs and images reviewed. Significant for mild hyponatremia with Im=398, Cr of 1.71 CXR without infiltrate EKG with PACs, RBBB Assessment/Plan - 78yo male with Covid-19 infection, hypoxia, requiring supplemental O2 by NC -Admit to medical, maintain isolation precautions -Dexamethasone 6mg IV daily -Remdesivir per protocol -Remainder as above Resident Activity Tracking Resident Involvement: Resident Care Provided Care Provided: Adult Hospital Medicine (3) Hypertension Hypertension type: unspecified Qualified Code(s): I10 - Essential (primary) hypertension (5) Diabetes mellitus, type II Diabetes mellitus fpc insulin use: without fpc use (6) CKD (chronic kidney disease) stage 3, GFR 30-59 ml/min Chronic kidney disease stage 3 subtype: stage 3b (GFR 30-44) Qualified Code(s): N18.32 - Chronic kidney disease, stage 3b
[2023-09-09 01:26] LABS: Appearance Urine Clear (Clear); Bacteria Urine Automated Negative (Negative); Bilirubin Urine Negative (Negative); Blood Urine Negative (Negative); Cast Urine Automated 0 /lpf (0-5); Color Urine Yellow; Glucose Urine UA Trace (Negative); Ketones Urine Negative (Negative); Leukocyte Esterase Urine Negative (Negative); Nitrite Urine Negative (Negative); Protein Urine 2+ (Negative); RBC Urine Automated 0-4 /hpf (0-4); Specific Gravity Urine 1.021 (1.000-1.030); Urobilinogen Urine Negative (Negative); pH Urine 6.5 (4.5-7.5)
[2023-09-09] MEDS ORDERED: REMDESIVIR 200 MG in SODIUM CHLORIDE 0.9% 210 ML IV ONE (01:30)
[2023-09-09] MEDS ORDERED: GLUCOSE 10 TAB/TUBE PO PRN (03:26)
[2023-09-09] MEDS ORDERED: CARBOHYDRATES FOR HYPOGLYCEMIA PO PRN (03:26)
[2023-09-09] MEDS ORDERED: GLUCAGON FOR INJ 1 MG VIAL SQ PRN (03:26)
[2023-09-09] MEDS ORDERED: DEXTROSE 50% 50 ML SYRINGE IV PRN (03:26)
[2023-09-09] MEDS ORDERED: ONDANSETRON 4 MG OD TAB PO PRN (03:26)
[2023-09-09] MEDS ORDERED: ALBUT/IPRATROP 3MG/0.5MG NEB 3 ML VIAL NEB PRN (03:26)
[2023-09-09] MEDS ORDERED: ACETAMINOPHEN 325 MG TAB PO PRN (03:26)
[2023-09-09] MEDS ORDERED: GLUCOSE 40% GEL 15 GM TUBE PO PRN (03:26)
--- NOTE | 2023-09-09 03:52 | Billing Data ---
Date of Service September 09, 2023 Coding Level of Care Code 23293 INT INP/OBS CARE
[2023-09-09 04:47] LABS: Basophils # (auto) 0.05 K/uL (0.00-0.20); Basophils % (auto) 0.6 %; Eosinophils # (auto) 0.01 K/uL (0.00-0.50); Eosinophils % (auto) 0.1 %; Hematocrit (blood only) 48.3 % (42.0-52.0); Hemoglobin 16.5 g/dl (14.0-18.0); Immature Granulocytes # (auto) 0.12 K/uL (0.01-0.20); Immature Granulocytes % (auto) 1.3 %; Lymphocytes # (auto) 0.82 K/uL (1.20-3.40); Lymphocytes % (auto) 9.2 %; Mean Corpuscular Hgb Conc 34.2 g/dL (32.0-36.0); Mean Corpuscular Volume 90.6 fL (80.0-100.0); Mean Platelet Volume 9.4 fL (9.4-12.4); Monocytes # (auto) 0.26 K/uL (0.11-0.59); Monocytes % (auto) 2.9 %; Neutrophils # (auto) 7.68 K/uL (1.40-6.50); Neutrophils % (auto) 85.9 %; Platelet Count 208 K/uL (130-400); RDW Coefficient of Variation 14.9 % (11.5-14.5); RDW Standard Deviation 49.3 fL (36.4-46.3); Red Blood Count 5.33 M/uL (4.70-6.10); White Blood Count 8.94 K/ul (4.8-10.8)
[2023-09-09 05:09] LABS: BUN Creatinine Ratio 9.6 (10-20); Calcium 9.1 mg/dl (8.6-10.3); Creatinine Clr Calc Pharmacy 37.8 ml/min; Est GFR (African American) 41.7 ml/min; Magnesium 1.8 mg/dl (1.7-2.4); Potassium 4.2 mmol/L (3.5-5.1)
--- NOTE | 2023-09-09 07:28 | XRay Report ---
SINGLE VIEW CHEST CLINICAL HISTORY: Illness. FINDINGS: A PA chest radiograph is compared to study dated 08/13/2023 and correlated with chest CT marquez ed 08/14/2023. The examination is degraded by portable technique and patient rotation. The heart is t op normal for projection noting atherosclerotic calcification of the thoracic aorta. Emphysema and ch ronic interstitial thickening is similar to previous. There is bibasilar scarring/atelectasis. The klever ngs and pleural spaces are otherwise clear. No pneumothorax is seen. The skeletal structures are oste openic. The bony thorax is grossly intact. IMPRESSION: Emphysematous change with no active disease in the chest. ACT 112: Negative or not required by law. Electronically signed by: Raulito Lord M.D. 09/09/2023 7:27 AM
[2023-09-09] MEDS: NovoLIN-N (NPH) PER UNIT CHARGE SC SCH (09:01)
[2023-09-09] MEDS: INSULIN ASPART PER UNIT CHARGE SC SCH ×4 (09:01→22:35)
[2023-09-09] MEDS: HEPARIN SOD 5,000 UNIT/0.5 ML VIAL SQ SCH ×2 (09:02→21:01)
[2023-09-09] MEDS: lisinopril 5 MG TAB PO SCH (09:03)
[2023-09-09] MEDS: amLODIPine BESYLATE 5 MG TAB PO SCH ×2 (09:03→21:00)
[2023-09-09] MEDS: METOPROLOL TARTRATE 25 MG TAB PO SCH ×2 (09:03→21:00)
[2023-09-09] MEDS: ASPIRIN 81 MG ECTAB PO SCH (09:03)
[2023-09-09] MEDS: CETIRIZINE HCL 10 MG TABLET PO SCH (09:03)
--- NOTE | 2023-09-09 09:16 | Electrocardiogram Report ---
Test Reason : Blood Pressure : / mmHG Vent. 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
[2023-09-09] MEDS ORDERED: dexAMETHasone 6 MG in SYRINGE 0 ML IV SCH (14:00)
--- NOTE | 2023-09-09 16:26 | History & Physical Bridge Note ---
Date of Service September 09, 2023 History & Physical Bridge Note I have examined the patient, reviewed the History & Physical and in the interval since the performance of the History & Physical I have noted the following changes of clinical significance: Patient seen later in the afternoon and reports he is feeling significantly improved since admission. He remained on 3 L nasal cannula but could probably be weaned off. His blood sugars were elevated and insulin NPH was started and NovoLog was tightened. Vitals reviewed Gen: AAOx3, NAD HEENT: Anicteric sclerae, EOMI CV: Regular rate and rhythm no mgr nl S1S2 Pulm: Bibasilar crackles Abd: +BS soft NT ND no masses or hernias Ext: No edema Skin: No rashes, warm/dry Neuro: Full strength throughout 78-year-old male here with COVID-19 and acute respiratory failure with hypoxia, hyperglycemia Plan outlined as above
[2023-09-09] MEDS ORDERED: REMDESIVIR 100 MG in SODIUM CHLORIDE 0.9% 230 ML IV SCH (20:00)
[2023-09-09] MEDS ORDERED: PRAVASTATIN SOD 40 MG TAB PO SCH (21:00)
[2023-09-09] MEDS ORDERED: INSULIN HUMAN REGULAR PER UNIT 8 UNITS in SYRINGE 0 ML IV STA (23:57)
[2023-09-10] MEDS ORDERED: NovoLIN-R INSULIN PER UNIT CHARGE IV STA (00:08)
[2023-09-10] MEDS: INSULIN ASPART PER UNIT CHARGE SC SCH ×4 (00:19→17:13)
[2023-09-10] MEDS: ASPIRIN 81 MG ECTAB PO SCH (08:19)
[2023-09-10] MEDS: lisinopril 5 MG TAB PO SCH (08:19)
[2023-09-10] MEDS: METOPROLOL TARTRATE 25 MG TAB PO SCH (08:19)
[2023-09-10] MEDS: CETIRIZINE HCL 10 MG TABLET PO SCH (08:19)
[2023-09-10] MEDS: amLODIPine BESYLATE 5 MG TAB PO SCH (08:19)
[2023-09-10] MEDS: HEPARIN SOD 5,000 UNIT/0.5 ML VIAL SQ SCH (08:20)
[2023-09-10] MEDS ORDERED: dexAMETHasone 6 MG in SYRINGE 0 ML IV SCH (09:00)
[2023-09-10 10:11] LABS: Basophils # (auto) 0.02 K/uL (0.00-0.20); Basophils % (auto) 0.2 %; Hematocrit (blood only) 49.2 % (42.0-52.0); Hemoglobin 16.9 g/dl (14.0-18.0); Immature Granulocytes # (auto) 0.09 K/uL (0.01-0.20); Immature Granulocytes % (auto) 0.8 %; Lymphocytes % (auto) 17.7 %; Mean Corpuscular Hemoglobin 31.1 pg (25.0-34.0); Mean Corpuscular Hgb Conc 34.3 g/dL (32.0-36.0); Mean Corpuscular Volume 90.6 fL (80.0-100.0); Mean Platelet Volume 9.7 fL (9.4-12.4); Monocytes # (auto) 1.11 K/uL (0.11-0.59); Monocytes % (auto) 10.3 %; Neutrophils # (auto) 7.62 K/uL (1.40-6.50); Platelet Count 234 K/uL (130-400); RDW Coefficient of Variation 14.8 % (11.5-14.5); RDW Standard Deviation 49.5 fL (36.4-46.3); Red Blood Count 5.43 M/uL (4.70-6.10); White Blood Count 10.74 K/ul (4.8-10.8)
[2023-09-10 10:25] LABS: Albumin Globulin Ratio 1.3 (0.9-2); Albumin Level 3.9 gm/dl (3.4-5.0); BUN Creatinine Ratio 18.9 (10-20); Bilirubin,Total 0.5 mg/dl (0.2-1.0); Calcium 8.9 mg/dl (8.6-10.3); Creatinine Clr Calc Pharmacy 35.2 ml/min; Est GFR (African American) 38.3 ml/min; Globulin 3.1 gm/dl (2.5-4.0); Potassium 4.1 mmol/L (3.5-5.1)
[2023-09-10] MEDS: NovoLIN-N (NPH) PER UNIT CHARGE SC SCH (10:52)
[2023-09-10] MEDS ORDERED: guaiFENesin/DEXTROM SYRUP 200MG/20MG 10ML UDC PO STA (15:16)
[2023-09-10] MEDS ORDERED: guaiFENesin/DEXTROM SYRUP 200MG/20MG 10ML UDC PO PRN (15:16)
--- NOTE | 2023-09-10 16:16 | Discharge Summary ---
Discharge Summary Date of Service September 10, 2023 Notes For Next Care Provider Medication Changes From Visit Dexamethasone 6mg po daily x 8 more days albuterol inhaler prn guaifenesin DM 10 mL po q6h prn cough Admission HPI Per Admitting Provider 78 yo male with PMHx of HTN, HLD, DM2, and CKD stage 3 presents with weakness. 2 days ago patient started experiencing chills/rigors and shortness of breath. The chills have improved but earlier today he felt extremely weak which prompted him to come to emergency room. Denies fevers, headache, chest pain, fatigue, abdominal pain, nausea, vomiting, diarrhea, dysuria. He is not on oxygen at baseline. Principal Dx & Hospital Course #1 = Principal Diagnosis (1) COVID: 78 yo male with PMHx of HTN, HLD, DM2, and CKD stage 3 presents with weakness, found to have hypoxia and COVID-19. CXR with emphysematous changes but no dx of COPD previously #Covid #Acute hypoxic respiratory failure -presented with 2 days chills, sob, and weakness. +covid in ED. Requiring 3L O2 NC. No leukocytosis. Procal neg. CXR with emphysematous changes and no focal consolidation. Blood cx remained no growth to date. Low suspicion for superimposed pneumonia at this time. Treated with Remdesevir x 2 doses and IV decadron and had resolution of hypoxia--> weaned to room air at rest and with exertion Still with cough and some wheeze, improved with albuterol neb--> dc to home on 8 more days of decadron and albuterol in chelsi, ramonafenesin DM prn cough f/u with PCP #CKD, stage 3 -internal controls analyst remained at Baseline ~1.5-1.7. Encouraged oral fluid intake. Monitor. #HLD -cont. statin #HTN-BPs controlled -cont. amlodipine, lisinopril, metoprolol #DM2 -had hyperglycemia here from steroids--> teated with NPH and Novolog while here but can resume home meds and should improve after stopping steroids DVT ppx: heparin SQ Code Status: full Dispo: dc to home (2) Acute hypoxic respiratory failure: (3) Hypertension: (4) Hyperlipidemia: (5) Diabetes mellitus, type II: (6) CKD (chronic kidney disease) stage 3, GFR 30-59 ml/min: Discharge Exam Constitutional WD/WN, vitals as above Respiratory normal respiratory effort and + cough Auscultation: lungs clear to auscultation bilaterally Cardiovascular RRR, no murmur, no edema Gastrointestinal (Abdomen) normal bowel sounds, soft, nontender, no hepatosplenomegaly Psychiatric A+Ox3, euthymic affect Updated Medication List Medication Instructions Recorded Confirmed Type cholecalciferol (vitamin D3) 50 2,000 unit PO QAM 09/20/18 09/09/23 History mcg (2,000 unit) capsule pravastatin 40 mg tablet 40 mg PO HS 09/20/18 09/09/23 History alogliptin 12.5 mg tablet 12.5 mg PO DAILY 05/19/21 09/09/23 History glipizide 5 mg tablet 5 mg PO BID 05/19/21 09/09/23 History lisinopril 5 mg tablet 5 mg PO DAILY 05/19/21 09/09/23 History potassium chloride 20 mEq 20 meq PO BID 05/19/21 09/09/23 History tablet,extended release aspirin 81 mg tablet,delayed 81 mg PO DAILY 06/20/21 09/09/23 History release cetirizine 10 mg tablet 10 mg PO DAILY 06/20/21 09/09/23 History amlodipine 5 mg tablet 5 mg PO Q12 #0 tabs 08/23/21 09/09/23 Rx cyanocobalamin (vitamin B-12) 500 500 mcg PO DAILY 03/28/22 09/09/23 History mcg tablet (Vitamin B-12) albuterol sulfate 90 mcg/actuation 2 inh inhalation Q6H PRN shortness 09/10/23 Rx aerosol inhaler of breath or wheezing #8.5 grams dexamethasone 6 mg tablet 6 mg PO DAILY #8 tabs 09/10/23 Rx dextromethorphan-guaifenesin 5 10 ml PO Q6H PRN cough #237 mL 09/10/23 Rx mg-100 mg/5 mL oral liquid (Robitussin Cough-Chest Congestion DM) metoprolol tartrate 25 mg tablet 25 mg PO BID 09/10/23 09/10/23 History Hospital Stay Data Consultations 09/09/23 00:23 ED Decision to Admit Stat Pending Results Patient Have Any Pending Studies at Discharge: Yes (Final blood cultures-no growth to date) Discharge Instructions Given to Patient (Per Discharging Provider) You were admitted with weakness and low oxygen levels from COVID-19. This improved with treatment with steroids, nebulizer treatments, and an antiviral medication called Remdesivir. The steroid called dexamethasone did make your blood sugars high but this will improve with resuming your usual diabetes medications at home and with taking the oral steroid pill instead. Please check your blood glucose before each meal and at bedtime and let your doctor know if they are too high (greater than 200) on a consistent basis. If your blood glucose is low (less than 70), please drink orange juice or take a glucose tablet and check your blood glucose again in 15 minutes. You can use the albuterol inhaler every 6 hours as needed for cough or shortness of breath at home. Your chest xray did show some signs of emphysema and you should follow up with your PCP regarding this finding. Total Time Total Time Spent Total Time Spent (In Minutes): 35 min Coding Level of Care Code 69865 INP/OBS DISCH >30 MIN Diagnoses COVID U07.1 Acute hypoxic respiratory failure J96.01 Hypertension I10 Hypertension type: unspecified Hyperlipidemia E78.5 Diabetes mellitus, type II E11.9 Diabetes mellitus technician terminal and repeater insulin use: without nursing home use CKD (chronic kidney disease) stage 3, GFR 30-59 ml/min N18.32 Chronic kidney disease stage 3 subtype: stage 3b (GFR 30-44)
== END 2023-09-10 17:16 | disposition home or self-care (01) | DRG 177 ==
LOC: ED 21:45 → SUATTDRO 09-09 01:27 → EDINP 09-09 01:27

== ENCOUNTER 2024-06-05 11:49 | Inpatient (IN) ==
--- NOTE | 2024-06-05 12:32 | Emergency Department Note ---
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 He said he has been sick actually since Sunday. No lower extremity pain or swelling . no fall or trauma. no chest pain. no abdominal pain .no GI symptoms. He tells me he has no lung history. He is a diabetic and does take aspirin but no other blood thinners. Home Medications Medication Instructions Recorded Confirmed Type cholecalciferol (vitamin D3) 50 2,000 unit PO QAM 09/20/18 06/05/24 History mcg (2,000 unit) capsule pravastatin 40 mg tablet 40 mg PO HS 09/20/18 06/05/24 History alogliptin 12.5 mg tablet 12.5 mg PO UD 05/19/21 06/05/24 History glipizide 5 mg tablet 5 mg PO BID 05/19/21 06/05/24 History potassium chloride 20 mEq 20 meq PO BID 05/19/21 06/05/24 History tablet,extended release aspirin 81 mg tablet,delayed 81 mg PO DAILY 06/20/21 06/05/24 History release cetirizine 10 mg tablet 10 mg PO DAILY 06/20/21 06/05/24 History amlodipine 5 mg tablet 5 mg PO Q12 #0 tabs 08/23/21 06/05/24 Rx cyanocobalamin (vitamin B-12) 500 500 mcg PO DAILY 03/28/22 06/05/24 History mcg tablet (Vitamin B-12) metoprolol tartrate 25 mg tablet 25 mg PO UD 09/10/23 06/05/24 History lisinopril 5 mg tablet 10 mg PO DAILY 04/21/24 06/05/24 History Allergies Allergy/AdvReac Type Severity Reaction Status Date / Time Influenza Virus Vaccines Allergy Severe Shortness Verified 04/21/24 13:15 of breath albuterol Allergy Mild Verified 04/21/24 13:15 atorvastatin AdvReac Intermediate Cramping Verified 04/21/24 13:15 of the Muscles simvastatin AdvReac Intermediate Cramping Verified 04/21/24 13:15 of the Muscles Unknown antibiotic AdvReac visual Uncoded 04/21/24 13:15 disturbance/diarrhea Past Med/Surg History Problem List (Updated 06/05/24 @ 16:15 by Samuel Skelton MD) Lab test negative for COVID-19 virus (Acute) Cough (Acute) URI (upper respiratory infection) (Acute) Hypoxemia (Acute) Bronchitis (Acute) Acute exacerbation of chronic obstructive pulmonary disease (COPD) 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 (Acute) COVID Left breast mass (Acute) Hypertension (Acute) Acute hypoxic respiratory failure Hyperlipidemia Diabetes mellitus, type II (Acute) CKD (chronic kidney disease) stage 3, GFR 30-59 ml/min (Acute) Substernal precordial chest pain (Acute) SOB (shortness of breath) (Acute) Mitral regurgitation Calculus of proximal left ureter (Acute) Hydronephrosis due to obstruction of ureter (Acute) Vision loss of left eye (Chronic) Medical History Hypoxic Pneumonia due to COVID-19 virus Hyperglycemia Leukocytosis Chest pain Acute kidney injury superimposed on CKD Cervical pain (neck) Pulmonary nodules Dyspnea on exertion Orthopnea Osteoarthritis Nephrolithiasis Surgical History Hx of cystoscopy STENT INSERTION AND NOW HAS CHRONIC PAIN IN LEFT LEG SINCE SURGERY H/O eye surgery RETINA REPAIR IN BOTH EYES Family History Father Congestive heart failure Mother Cancer Social History Smoking Status: Former smoker Tobacco Type: Cigarettes Second Hand Exposure: Yes; Do You Dip or Chew Tobacco: No; Hx Alcohol Use: No Hx Substance Use: No Preferred Language: Indonesian Communication Ability: Effective Visual Impairment: Partially Limited Full Stack Python Developer Required: No Beliefs That Will Affect Care: None marital status: / Current Living Situation: Alone current occupational status: retired How many Children do You have: 3 Feels Safe at Home: Yes Diet: diabetic during the past year weight has: remained stable Assistive Devices: Glasses Review of Systems A total of 10 systems reviewed and were otherwise negative Physical Exam Vital Signs Vital Signs - 24 hr 06/05/24 11:49 06/05/24 12:45 06/05/24 12:45 Temperature 36.6 C Temperature Source Temporal Artery Scan Pulse Rate 71 Pulse Rate [Apical] Pulse Rhythm Pulse Rhythm [Apical] Pulse Strength [Apical] Respiratory Rate 18 18 Respiratory Effort / Characteristics Non-Labored Spontaneous Nasal Congestion Short of Breath Respiratory Depth Normal Respiratory Pattern Regular Blood Pressure 133/79 Blood Pressure [Right Arm] 144/89 H Blood Pressure Mean 97 Blood Pressure Mean [Right Arm] 107 Blood Pressure Position [Right Arm] Lying Pulse Oximetry 94 91 Oxygen Delivery Method Room Air Room Air Room Air Oxygen Flow Rate Sepsis Recent Fever Within 48 Hours No Sepsis New/Unexplained Change in Mental Status N/A Sepsis Action Taken by Nursing No Action Required 06/05/24 12:45 06/05/24 12:52 06/05/24 12:53 Temperature Temperature Source Pulse Rate 69 66 Pulse Rate [Apical] Pulse Rhythm Regular Pulse Rhythm [Apical] Pulse Strength [Apical] Respiratory Rate 18 18 Respiratory Effort / Characteristics Respiratory Depth Respiratory Pattern Blood Pressure Blood Pressure [Right Arm] Blood Pressure Mean Blood Pressure Mean [Right Arm] Blood Pressure Position [Right Arm] Pulse Oximetry 91 88 L 93 Oxygen Delivery Method Room Air Room Air Nasal Cannula Oxygen Flow Rate 2 Sepsis Recent Fever Within 48 Hours Sepsis New/Unexplained Change in Mental Status Sepsis Action Taken by Nursing 06/05/24 13:09 06/05/24 16:00 Temperature 36.8 C Temperature Source Oral Pulse Rate 68 Pulse Rate [Apical] 63 Pulse Rhythm Pulse Rhythm [Apical] Regular Pulse Strength [Apical] Normal Respiratory Rate 18 Respiratory Effort / Characteristics Non-Labored Spontaneous Nasal Congestion Short of Breath Respiratory Depth Normal Respiratory Pattern Regular Blood Pressure Blood Pressure [Right Arm] 143/76 H Blood Pressure Mean Blood Pressure Mean [Right Arm] 98 Blood Pressure Position [Right Arm] Lying Pulse Oximetry 93 Oxygen Delivery Method Nasal Cannula Oxygen Flow Rate 2 Sepsis Recent Fever Within 48 Hours Sepsis New/Unexplained Change in Mental Status Sepsis Action Taken by Nursing General: Well developed well nourished older male who appears mildly tachypneic at times although speaking full sentences and otherwise in no acute distress, breathing comfortably on room air. Normal speech HEENT: Normal cephalic atraumatic. Pupils are equal round and reactive to light. Extraocular movements are intact. Oropharynx is pink with moist mucous membranes. No swelling of the mouth lips or tongue. Neck: Supple with a midline trachea. No meningeal signs or stiffness, no JVD or bruits. No Stridor. Chest: Clear to auscultation bilaterally. No wheezes or rhonchi. No increased work of breathing. Heart: Regular rate and rhythm without murmurs or gallops. Abdomen: Soft nontender, nondistended without rebound guarding or rigidity. Extremities: No cyanosis clubbing or edema. No calf tenderness or assymetry Spine/Back. Non tender to palpation. No CVA tenderness Skin: Good turgor without rashes. Neurologic exam: Cranial nerves two through 12 are intact. Motor and sensation are intact and symmetrical throughout. Course Administered Medications Discontinued Medications Albuterol (Albuterol 0.083% Nebu Soln 3 Ml Vial) 2.5 mg NEB NOW STA; Protocol Stop: 06/05/24 13:01 Last Admin: 06/05/24 13:09 Dose: 2.5 mg Documented By: JACKSON Ceftriaxone Sodium (Rocephin) 2,000 mg in 50 mls @ 100 mls/hr IV NOW STA Stop: 06/05/24 14:12 Last Infusion: 06/05/24 15:46 Dose: Infused Documented By: Admin: 06/05/24 14:58 Dose: 100 mls/hr Documented By: JACKSON Methylprednisolone (Methylprednisolone 125 Mg/2 Ml Vial) 125 mg IV NOW STA Stop: 06/05/24 13:44 Last Admin: 06/05/24 14:26 Dose: 125 mg Documented By: JACKSON Medical Decision Making Differential Diagnosis COVID, pneumonia, infection, URI, bronchitis, cardiac disease, electrolyte or metabolic abnormality Medical Records Attestation: I reviewed the patient's medical records. Home Medications Current Medication List: was personally reviewed by me Laboratory Data Attestation: I reviewed the patient's lab results. 06/05/24 12:38 06/05/24 12:38 Lab Results 06/05/24 06/05/24 06/05/24 Range/Units 12:10 12:38 12:40 WBC 18.93 H (4.8-10.8) K/ul RBC 5.29 (4.70-6.10) M/uL Hgb 16.5 (14.0-18.0) g/dl Hct 46.8 (42.0-52.0) % MCV 88.5 (80.0-100.0) fL MCH 31.2 (25.0-34.0) pg MCHC 35.3 (32.0-36.0) g/dL RDW Std Deviation 48.3 H (36.4-46.3) fL RDW Coeff of Mark 14.9 H (11.5-14.5) % Plt Count 284 (130-400) K/uL MPV 9.4 (9.4-12.4) fL Immature Gran % (Auto) 0.6 % Neut % (Auto) 70.3 % Lymph % (Auto) 20.0 % Dodge % (Auto) 5.9 % Eos % (Auto) 2.6 % Baso % (Auto) 0.6 % Neut # (Auto) 13.29 H (1.40-6.50) K/uL Lymph # (Auto) 3.79 H (1.20-3.40) K/uL Dodge # (Auto) 1.12 H (0.11-0.59) K/uL Eos # (Auto) 0.50 (0.00-0.50) K/uL Baso # (Auto) 0.11 (0.00-0.20) K/uL Immature Gran # (Auto) 0.12 (0.01-0.20) K/uL PT 10.3 (9.0-12.0) Seconds INR 0.9 (0.9-1.1) APTT 27 (21-31) Seconds PTT Ratio 1.0 Sodium 136 (136-145) mmol/L Potassium 4.0 (3.5-5.1) mmol/L Chloride 104 (98-107) mmol/L Carbon Dioxide 24 (21-32) mmol/L Anion Gap 8 (3-11) BUN 17 (6-23) mg/dl Creatinine 1.58 H (0.6-1.4) mg/dl Est Cr Clr Drug Dosing 40.6 ml/min Est GFR ( Amer) 47.5 ml/min Est GFR (Non-Af Amer) 41.0 ml/min BUN/Creatinine Ratio 10.8 (10-20) Glucose 205 H (70-99(Fasting)) mg/dl Calcium 9.5 (8.6-10.3) mg/dl Total Bilirubin 0.9 (0.2-1.0) mg/dl AST 15 (13-39) U/L ALT 12 (7-52) U/L Alkaline Phosphatase 76 (34-104) U/L Troponin I High Sens 5.2 (0-20) pg/ml B-Natriuretic Peptide 38 (0-100) pg/ml Total Protein 7.2 (6.0-8.3) gm/dl Albumin 4.2 (3.4-5.0) gm/dl Globulin 3.0 (2.5-4.0) gm/dl Albumin/Globulin Ratio 1.4 (0.9-2) SARS-CoV-2 (PCR) NEGATIVE (Negative) Influenza Type A (PCR) Negative (Neg) Influenza Type B (PCR) Negative (Neg) RSV (RT-PCR) Negative (Neg) Group A Strep (PCR) NOT DETECTED (NotDetected) Imaging Data Attestation: I personally reviewed and interpreted this imaging study as follows: My Impression: Chest x-rayno acute infiltrate, failure, pneumothorax seen Radiologist's Impression: Chest X-Ray 06/05/24 12:09 XR chest 1V not portable CLINICAL HISTORY: Chest pain, nonspecific TECHNIQUE: Single frontal radiograph of the chest was obtained. Comparison: Comparison is made to chest radiograph 03/29/2024 FINDINGS: No lines and tubes are seen. Cardiomegaly is noted. Reticular interstitial opacities are seen. No evidence of pleural effusion or pneumothorax. IMPRESSION: No acute chest disease. ACT 112: Negative or not required by law. Electronically signed by: Lavon Prabhakar M.D. 06/05/2024 1:22 PM ECG Data Attestation: I personally reviewed and interpreted this ECG as follows: Indication: + SOB/dyspnea Rate (beats per minute): 71 Rhythm: + normal sinus ECG Intervals/blocks: + First degree AV block, + Normal QRS and + Normal QT ECG [place]: + Normal ECG ST segments: + Normal ST segments ECG Findings: + Other (Poor baseline but T waves appear more flattened laterally than previous); no PACs or no PVCs Comparison ECG Date: from (02/28/24-T waves appear more nonspecific) MDM Narrative This patient comes in as described above. He was seen in room before. He is here for URI type symptoms he has a cough and a sore throat. He has some mild shortness of breath at times although speaking full sentences he is not hypoxemic. Given his age and comorbidities full workup was done. This included chest x-ray EKG and multiple blood testing he was also COVID tested and strep test. Was hypoxemic and appeared mildly tachypneic he was given albuterol neb and felt significant better he was placed on oxygen. COVID and strep were negative EKG shows no ischemic changes or ectopy chest x-ray was unremarkable. White count was elevated 18. He was given Rocephin 2 g IV as well as IV steroids. I do think he has an upper respiratory infection/bronchitis, he looks better at rest now. I do think he needs to be admitted/observed have consulted and discussed case with the inpatient team they will see him in the ER for these measures. Continuous shelter monitor: Orders placed in EMR for continuous cardiac monitoring: Upon my evaluation patient noted to be in normal sinus rhythm rate of 60 Impression & Plan Bronchitis, Hypoxemia, URI (upper respiratory infection), Cough, Lab test negative for COVID-19 virus Discharge Plan Visit Data Chief Complaint: Illness Stated Complaint: SORE THROAT, COUGH, SOB ED Provider: Samuel Skelton Discharge Problem: Bronchitis, Hypoxemia, URI (upper respiratory infection), Cough, Lab test negative for COVID-19 virus Forms Stand Alone Forms: My [facility] Prescriptions Prescriptions: No Action cetirizine 10 mg tablet 10 mg PO DAILY aspirin 81 mg tablet,delayed release (DR/EC) 81 mg PO DAILY cholecalciferol (vitamin D3) 2,000 unit Capsule 2,000 unit PO QAM pravastatin 40 mg Tablet 40 mg PO HS metoprolol tartrate 25 mg Tablet 25 mg PO UD Rx Instructions: original: 25 mg po bid patient isn't familiar with this medication and no fill history available glipizide 5 mg Tablet 5 mg PO BID alogliptin 12.5 mg Tablet 12.5 mg PO UD Rx Instructions: original: 12.5 mg po daily pt isnt familiar with this medication, no fill history available potassium chloride 20 mEq Tablet Extended Release 20 meq PO BID lisinopril 5 mg tablet 10 mg PO DAILY amlodipine 5 mg Tablet 5 mg PO Q12 Qty: 0 0RF cyanocobalamin (vitamin B-12) [Vitamin B-12] 500 mcg Tablet 500 mcg PO DAILY Referrals Referrals: Juanita Carlson PA-C [Primary Care Provider] - Discharge Problem: URI (upper respiratory infection) Qualifiers: URI type: unspecified URI Qualified Code(s): J06.9 - Acute upper respiratory infection, unspecified Cough Qualifiers: Cough type: acute Qualified Code(s): R05.1 - Acute cough
[2024-06-05 13:03] LABS: Influenza A virus by PCR Negative (Neg); Influenza B virus by PCR Negative (Neg); RSV by PCR Negative (Neg); SARS CoV2 RNA(COVID-19) Ceph NEGATIVE (Negative)
[2024-06-05] MEDS: ALBUTEROL 0.083% NEBU SOLN 3 ML VIAL NEB STA (13:09)
[2024-06-05 13:12] LABS: Basophils # (auto) 0.11 K/uL (0.00-0.20); Basophils % (auto) 0.6 %; Eosinophils % (auto) 2.6 %; Hematocrit (blood only) 46.8 % (42.0-52.0); Hemoglobin 16.5 g/dl (14.0-18.0); Immature Granulocytes # (auto) 0.12 K/uL (0.01-0.20); Immature Granulocytes % (auto) 0.6 %; Lymphocytes # (auto) 3.79 K/uL (1.20-3.40); Mean Corpuscular Hemoglobin 31.2 pg (25.0-34.0); Mean Corpuscular Hgb Conc 35.3 g/dL (32.0-36.0); Mean Corpuscular Volume 88.5 fL (80.0-100.0); Mean Platelet Volume 9.4 fL (9.4-12.4); Monocytes # (auto) 1.12 K/uL (0.11-0.59); Monocytes % (auto) 5.9 %; Neutrophils # (auto) 13.29 K/uL (1.40-6.50); Neutrophils % (auto) 70.3 %; Platelet Count 284 K/uL (130-400); RDW Coefficient of Variation 14.9 % (11.5-14.5); RDW Standard Deviation 48.3 fL (36.4-46.3); Red Blood Count 5.29 M/uL (4.70-6.10); White Blood Count 18.93 K/ul (4.8-10.8)
--- NOTE | 2024-06-05 13:24 | XRay Report ---
XR chest 1V not portable CLINICAL HISTORY: Chest pain, nonspecific TECHNIQUE: Single frontal radiograph of the chest was obtained. Comparison: Comparison is made to chest radiograph 03/29/2024 FINDINGS: No lines and tubes are seen. Cardiomegaly is noted. Reticular interstitial opacities are seen. No lydia dence of pleural effusion or pneumothorax. IMPRESSION: No acute chest disease. ACT 112: Negative or not required by law. Electronically signed by: Lavon Prabhakar M.D. 06/05/2024 1:22 PM
[2024-06-05 13:30] LABS: Albumin Globulin Ratio 1.4 (0.9-2); Albumin Level 4.2 gm/dl (3.4-5.0); BUN Creatinine Ratio 10.8 (10-20); Bilirubin,Total 0.9 mg/dl (0.2-1.0); Calcium 9.5 mg/dl (8.6-10.3); Creatinine Clr Calc Pharmacy 40.6 ml/min; Est GFR (African American) 47.5 ml/min; Total Protein 7.2 gm/dl (6.0-8.3)
[2024-06-05 13:31] LABS: INR 0.9 (0.9-1.1); Partial Thromboplastin Time 27 Seconds (21-31); Prothrombin Time 10.3 Seconds (9.0-12.0)
[2024-06-05 13:34] LABS: Troponin I High Sensitivity 5.2 pg/ml (0-20)
[2024-06-05] MEDS: methylPREDNISolone 125 MG/2 ML VIAL IV STA (14:26)
[2024-06-05] MEDS: cefTRIAXone SODIUM 2,000 MG/50 ML BAG IV STA (14:58)
--- NOTE | 2024-06-05 15:55 | History & Physical Report ---
Date of Service June 05, 2024 Assessment & Plan (1) Acute hypoxic respiratory failure: Plan: Worsening cough and SOB that began on Friday 06/01 Home pulse ox read 86% on RA Patient is not on supplemental oxygen at baseline Supplemental oxygen as needed to maintain SpO2 89-92% Continuous pulse oximetry A.m. CBC, BMP (2) Acute exacerbation of chronic obstructive pulmonary disease (COPD): Plan: DuoNeb 3 mL Q6R Guaifenesin 1200 mg p.o. BID Incentive spirometry, flutter valve Patient reports he has recurrent bronchitis that often develops pneumonia He received Rocephin 2000 mg IV x 1 in the ED Will start patient on empiric azithromycin 500mg p.o. q24h on the morning of 06/06; QTc okay at 397 on arrival (3) Bronchitis: Plan: Treatment (as above) (4) Diabetes mellitus, type II: Plan: Last A1c at 8.1% on 08/14/2023 Hold glipizide, alogliptin Will start patient on Lantus 5u BID SSI with target BSG range 110-140mg/dL, CF 45, carb ratio 15 T2DM diet BSG ACHS Adjust regimen as needed AM A1c (5) Hypertension: Plan: Continue metoprolol, lisinopril, and aspirin Plan Disposition: Admit to Medr DNR/DNI T2DM diet VTE PPx: Lovenox 40 mg SQ q24h History of Present Illness Chief Complaint: SOB, cough Primary Care Provider: Juanita Carlson PA-C Ankush is a 79-year-old male with PMH of T2DM, hyperlipidemia, HTN, 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 He presented on 06/05 for SOB and cough that started on Friday 06/01. He endorses SOB both at rest and with exertion. Worse when he lies flat on his back. He has recurrent episodes of bronchitis which sometimes turn into pneumonia. When he reach out to his PCP and told him that his home pulse ox was around 86% on room air, they recommend he come into the ED. He does not use supplemental oxygen at baseline. No CPAP at night. No history of DVT/PE. No sick contacts, however patient does have 18 great- grandchildren who are occasionally sick. He has not been taking any additional medications at home for his symptoms. He previously had tried an albuterol inhaler, but said it did not work for him. That said, he does report symptomatic relief with albuterol nebulizer in the ED. No history of COPD or asthma to his knowledge. Patient took his regular morning medications today; no recent change in medications. He manages his own medications at home. Patient denies smoking, tobacco use, recent alcohol use. It should also be noted that the patient's of 57 years just recently a couple months ago. Patient is mildly hypertensive at 144/89; SpO2 is 93% on 2L NC; vitals otherwise stable. ED course: Rocephin 2000 mg IV Solu-Medrol 125 mg IV Albuterol 2.5 mg neb ROS: Patient endorses SOB at rest and with exertion, productive cough (clear sputum production), wheezing, and orthopnea. Patient denies fever, chills, night sweats, dizziness, lightheadedness, headaches, chest pain, chest palpitations, pleuritic CP, hemoptysis, abdominal pain, N/V/D, changes in urinary or bowel habits, burning with urination, blood in the urine or stool, or swelling or erythema of lower extremities bilaterally. Allergies Allergy/AdvReac Type Severity Reaction Status Date / Time Influenza Virus Vaccines Allergy Severe Shortness Verified 04/21/24 13:15 of breath albuterol Allergy Mild Verified 04/21/24 13:15 atorvastatin AdvReac Intermediate Cramping Verified 04/21/24 13:15 of the Muscles simvastatin AdvReac Intermediate Cramping Verified 04/21/24 13:15 of the Muscles Unknown antibiotic AdvReac visual Uncoded 04/21/24 13:15 disturbance/diarrhea Home Medications Medication Instructions Recorded Confirmed Type cholecalciferol (vitamin D3) 50 2,000 unit PO QAM 09/20/18 06/05/24 History mcg (2,000 unit) capsule pravastatin 40 mg tablet 40 mg PO HS 09/20/18 06/05/24 History alogliptin 12.5 mg tablet 12.5 mg PO UD 05/19/21 06/05/24 History glipizide 5 mg tablet 5 mg PO BID 05/19/21 06/05/24 History potassium chloride 20 mEq 20 meq PO BID 05/19/21 06/05/24 History tablet,extended release aspirin 81 mg tablet,delayed 81 mg PO DAILY 06/20/21 06/05/24 History release cetirizine 10 mg tablet 10 mg PO DAILY 06/20/21 06/05/24 History amlodipine 5 mg tablet 5 mg PO Q12 #0 tabs 08/23/21 06/05/24 Rx cyanocobalamin (vitamin B-12) 500 500 mcg PO DAILY 03/28/22 06/05/24 History mcg tablet (Vitamin B-12) metoprolol tartrate 25 mg tablet 25 mg PO UD 09/10/23 06/05/24 History lisinopril 5 mg tablet 10 mg PO DAILY 04/21/24 06/05/24 History Past Med/Surg History Problem List (Updated 06/05/24 @ 19:08 by Reena Ontiveros) Lab test negative for COVID-19 virus (Acute) Cough (Acute) URI (upper respiratory infection) (Acute) Hypoxemia (Acute) Bronchitis (Acute) Acute exacerbation of chronic obstructive pulmonary disease (COPD) 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 (Acute) COVID Left breast mass (Acute) Hypertension (Acute) Acute hypoxic respiratory failure Hyperlipidemia Diabetes mellitus, type II (Acute) CKD (chronic kidney disease) stage 3, GFR 30-59 ml/min (Acute) Substernal precordial chest pain (Acute) SOB (shortness of breath) (Acute) Mitral regurgitation Calculus of proximal left ureter (Acute) Hydronephrosis due to obstruction of ureter (Acute) Vision loss of left eye (Chronic) Medical History Hypoxic Pneumonia due to COVID-19 virus Hyperglycemia Leukocytosis Chest pain Acute kidney injury superimposed on CKD Cervical pain (neck) Pulmonary nodules Dyspnea on exertion Orthopnea Osteoarthritis Nephrolithiasis Surgical History Hx of cystoscopy STENT INSERTION AND NOW HAS CHRONIC PAIN IN LEFT LEG SINCE SURGERY H/O eye surgery RETINA REPAIR IN BOTH EYES Family History Father Congestive heart failure Mother Cancer Social History Smoking Status: Former smoker Tobacco Type: Cigarettes Second Hand Exposure: Yes; Do You Dip or Chew Tobacco: No; Hx Alcohol Use: No Hx Substance Use: No Preferred Language: Welsh Communication Ability: Effective Visual Impairment: Partially Limited Dietary Assistant Required: No Beliefs That Will Affect Care: None marital status: / Current Living Situation: Alone current occupational status: retired How many Children do You have: 3 Feels Safe at Home: Yes Diet: diabetic during the past year weight has: remained stable Assistive Devices: Glasses Review of Systems Review of Systems: See HPI above Physical Exam Physical Exam: General: no acute distress; pleasant affect; non-toxic appearing; well-nourishe d; cooperative; SpO2 92% on 2L NC HEENT: normocephalic, atraumatic; no scleral icterus; vision and hearing grossly intact Neck: supple; no lymphadenopathy; trachea midline Skin: warm, dry without signs of tenting; no cyanosis; no rashes, bruising, lesions, or erythema noted CV: chest wall NTP; RRR; S1/S2 normal; no murmurs/rubs/gallops; pulses intact and symmetric at radial, DP, and PT Lungs: no acute respiratory distress; mild conversational dyspnea; symmetrical chest wall expansion; bibasilar crackles auscultated lower lung mcbride bilaterally ABD: Soft, NTP; BS present; no rebound/guarding; no distention MSK: no tics or fasciculations; nonpitting edema noted in the LEs b/l (stockings in place); patient demonstrates ability to wiggle toes Neuro: A&Ox3; flat affect; fluent speech; no focal deficits; sensation intact and symmetric in the LEs b/l Results & Data Results & Data Vital Signs (Past 12 Hours) Vital Signs Temp Pulse Resp BP BP Pulse Ox O2 Del Method 06/05/24 13:09 68 06/05/24 12:53 66 18 93 Nasal Cannula 06/05/24 12:52 88 L Room Air 06/05/24 12:45 69 18 91 Room Air 06/05/24 12:45 Room Air 06/05/24 12:45 18 144/89 H 91 Room Air 06/05/24 11:49 36.6 C 71 18 133/79 94 Room Air O2 Flow Rate 06/05/24 13:09 06/05/24 12:53 2 06/05/24 12:52 06/05/24 12:45 06/05/24 12:45 06/05/24 12:45 06/05/24 11:49 Laboratory Results Abnormal lab results 06/05/24 Range/Units 12:38 WBC 18.93 H (4.8-10.8) K/ul RDW Std Deviation 48.3 H (36.4-46.3) fL RDW Coeff of Mark 14.9 H (11.5-14.5) % Neut # (Auto) 13.29 H (1.40-6.50) K/uL Lymph # (Auto) 3.79 H (1.20-3.40) K/uL [place] # (Auto) 1.12 H (0.11-0.59) K/uL Creatinine 1.58 H (0.6-1.4) mg/dl Glucose 205 H (70-99(Fasting)) mg/dl Diagnostic Findings Chest X-Ray 06/05/24 12:09 XR chest 1V not portable CLINICAL HISTORY: Chest pain, nonspecific TECHNIQUE: Single frontal radiograph of the chest was obtained. Comparison: Comparison is made to chest radiograph 03/29/2024 FINDINGS: No lines and tubes are seen. Cardiomegaly is noted. Reticular interstitial opacities are seen. No evidence of pleural effusion or pneumothorax. IMPRESSION: No acute chest disease. ACT 112: Negative or not required by law. Electronically signed by: Lavon Prabhakar M.D. 06/05/2024 1:22 PM ECG Additional Comments: ECG revealed sinus rhythm with first-degree AV block at 71 bpm; QTc 397 Code Status & VTE Plan Code Status DNR/DNI VTE Prophylaxis Plan VTE Prophylaxis will be ordered: Yes Supervising Physician Co-Signing Physician Notes Patient seen and examined, chart reviewed, case discussed with Geronimo Warren PA-C and I agree with the assessment and plan as above except as otherwise noted Labs and images reviewed 79-year-old male with type II DM, hyperlipidemia, hypertension, left eye vision loss, CKD 3 who presents with shortness of breath and cough, worsened when laying flat. Has had multiple episodes of bronchitis. Was hypoxic at home presents to the ER and is requiring 2 L of nasal cannula. Patient has bibasilar crackles and trace wheezing on forced end expiration. Agree with treatment for bronchitis given reports of wheezing COPD, bio fire is negative. BNP is not elevated, troponin is normal, and there is no evidence of pulmonary edema or vascular congestion on CXR to suggest CHF.. 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
[2024-06-05] MEDS ORDERED: AZITHROMYCIN 500 MG in DEXTROSE 5% 250 ML IV ONE (17:30)
[2024-06-05] MEDS ORDERED: DEXTROSE 50% 50 ML SYRINGE IV PRN (19:18)
[2024-06-05] MEDS ORDERED: GLUCOSE 10 TAB/TUBE PO PRN (19:18)
[2024-06-05] MEDS ORDERED: GLUCOSE 40% GEL 15 GM TUBE PO PRN (19:18)
[2024-06-05] MEDS ORDERED: ACETAMINOPHEN 325 MG TAB PO PRN (19:18)
[2024-06-05] MEDS ORDERED: CARBOHYDRATES FOR HYPOGLYCEMIA PO PRN (19:18)
[2024-06-05] MEDS ORDERED: MELATONIN 3 MG TAB PO PRN (19:18)
[2024-06-05] MEDS ORDERED: GLUCAGON FOR INJ 1 MG VIAL SQ PRN (19:18)
[2024-06-05] MEDS: ALBUT/IPRATROP 3MG/0.5MG NEB 3 ML VIAL INH SCH (20:51)
[2024-06-05] MEDS: PRAVASTATIN SOD 40 MG TAB PO SCH (21:58)
[2024-06-05] MEDS: METOPROLOL TARTRATE 25 MG TAB PO SCH (21:58)
[2024-06-05] MEDS: amLODIPine BESYLATE 5 MG TAB PO SCH (21:58)
[2024-06-05] MEDS: ENOXAPARIN INJ 40 MG/0.4 ML SYR SQ SCH (21:58)
[2024-06-05] MEDS: LANTUS PER UNIT CHARGE SQ SCH (21:59)
[2024-06-05] MEDS: guaiFENesin 600 MG TABCR PO SCH (21:59)
[2024-06-05] MEDS: POTASSIUM CHLORIDE CRTAB 20 MEQ TABCR PO SCH (21:59)
[2024-06-05] MEDS: INSULIN ASPART PER UNIT CHARGE SC SCH (21:59)
--- NOTE | 2024-06-05 22:43 | Electrocardiogram Report ---
Test Reason : Blood Pressure : */* mmHG Vent. Rate : 71 BPM Atrial Rate : 71 BPM P-R Int : 216 ms QRS Dur : 66 ms QT Int : 366 ms P-R-T Axes : 75 -17 6 degrees QTcB Int : 397 ms Sinus rhythm with 1st degree A-V block with Premature supraventricular complexes Inferior infarct (cited on or before 18-Sep-2018) Anterolateral infarct , age undetermined Nonspecific T wave abnormality Abnormal ECG When compared with ECG of 29-Mar-2024 10:55, Anterolateral infarct is now Present Confirmed by Ramses Stewart ([id number]) on 06/05/2024 10:42:57 PM Referred By: Confirmed By: Ramses Stewart
[2024-06-06] MEDS: ASPIRIN 81 MG ECTAB PO SCH (08:34)
[2024-06-06] MEDS: CETIRIZINE HCL 10 MG TABLET PO SCH (08:34)
[2024-06-06] MEDS: lisinopril 10 MG TAB PO SCH (08:35)
[2024-06-06] MEDS: AZITHROMYCIN 250 MG TAB PO SCH (08:35)
[2024-06-06 09:15] LABS: BUN Creatinine Ratio 14.4 (10-20); Calcium 9.5 mg/dl (8.6-10.3); Creatinine Clr Calc Pharmacy 34.2 ml/min; Est GFR (African American) 38.8 ml/min; Est GFR (Non-African American) 33.4 ml/min; Potassium 4.5 mmol/L (3.5-5.1)
[2024-06-06 09:39] LABS: Basophils # (auto) 0.02 K/uL (0.00-0.20); Basophils % (auto) 0.1 %; Hematocrit (blood only) 45.5 % (42.0-52.0); Hemoglobin 16.1 g/dl (14.0-18.0); Immature Granulocytes # (auto) 0.19 K/uL (0.01-0.20); Lymphocytes # (auto) 2.33 K/uL (1.20-3.40); Lymphocytes % (auto) 12.7 %; Mean Corpuscular Hemoglobin 31.5 pg (25.0-34.0); Mean Corpuscular Hgb Conc 35.4 g/dL (32.0-36.0); Mean Platelet Volume 9.7 fL (9.4-12.4); Monocytes # (auto) 0.52 K/uL (0.11-0.59); Monocytes % (auto) 2.8 %; Neutrophils # (auto) 15.29 K/uL (1.40-6.50); Neutrophils % (auto) 83.4 %; Platelet Count 275 K/uL (130-400); RDW Coefficient of Variation 14.8 % (11.5-14.5); RDW Standard Deviation 48.7 fL (36.4-46.3); Red Blood Count 5.11 M/uL (4.70-6.10); White Blood Count 18.35 K/ul (4.8-10.8)
[2024-06-06 09:48] LABS: Estimated Average Glucose 177 mg/dl; Hemoglobin A1C 7.8 % (4.5-5.6)
[2024-06-06] MEDS ORDERED: PHARMACY GLYCEMIC MGMT CONSULT PRN (12:24)
[2024-06-06] MEDS: LANTUS PER UNIT CHARGE SQ ONE (13:12)
--- NOTE | 2024-06-06 13:35 | Hospitalist Progress Note ---
Date of Service June 06, 2024 Assessment & Plan (1) Acute hypoxic respiratory failure: (2) Acute exacerbation of chronic obstructive pulmonary disease (COPD): (3) Diabetes mellitus, type II: (4) CKD (chronic kidney disease) stage 3, GFR 30-59 ml/min: (5) Hypertension: Plan 79-year-old male with past medical history of hypertension, type 2 diabetes mellitus, CKD stage III who presents with cough and shortness of breath for 5 days. Patient's home pulse oximetry was around 86% on room air and his PCP recommended he go to the ED. Patient denies any history of asthma or COPD. #Acute hypoxic respiratory failure likely secondary to COPD #Acute exacerbation of COPD Continue oxygen to maintain saturations between 89 to 92% and wean as tolerated Prednisone 40 mg p.o. daily for 5 days Continue azithromycin 500 mg p.o. daily (day 1) Echo from August 2023 shows EF of 65% with mild concentric left ventricular hypertrophy, no wall motion abnormalities and grade 1 diastolic dysfunction Incentive spirometry, flutter valve Scheduled nebs #Type 2 diabetes mellitus Patient is not on insulin at home A1c 7.8 Pharmacy consult for glycemic control Patient does not want to be on insulin on discharge #Essential hypertension #Hyperlipidemia Continue aspirin plus statin Continue metoprolol 25 mg p.o. twice daily, amlodipine 5 mg p.o. twice daily Hold lisinopril for now on review of slightly worsened creatinine Monitor vital signs #CKD stage III Baseline creatinine is between 1.5-1.8 Hold lisinopril as creatinine is slightly elevated over his baseline Monitor renal function electrolytes Avoid nephrotoxic agents including NSAIDs Stop scheduled potassium supplement CODE STATUS: DNR/DNI DVT prophylaxis: Switch to heparin 5000 units subcutaneous twice daily given CKD Discharge planning Home likely in the next 24 to 48 hours based on clinical improvement Care plan discussed with patient, nursing staff Admission and Anticipated Discharge Date Admission Date: June 05, 2024 Subjective Patient seen and examined Patient reports feeling much better: His breathing is improved, cough is improved, denies any sputum production, denies any fever or chills Patient states his blood sugars run high every time he gets steroids and he is okay with using insulin in the hospital but does not wish to be discharged on insulin Patient [facility], primary care and nephrology. He is aware of having chronic kidney disease Patient states he lives by himself, stopped smoking 60 years ago and denies alcohol use He denies any chest pain, nausea, vomiting, diarrhea or abdominal pain Review of Systems Review of Systems: As per HPI Physical Exam 2 Physical Exam: General: No acute distress, speaking in full sentences without any dyspnea Psych: Awake and alert HEENT: Anicteric sclera, moist oral mucosa CVS: Regular rate and rhythm Lungs: Bilateral air entry, no wheezing noted Abdomen: Soft, nontender, no rebound, no guarding Ext: No lower extremity edema, no calf tenderness Neuro: No focal motor deficits noted Results & Data Results & Data Vital Signs (Past 12 Hours) Vital Signs Temp Pulse Resp BP Pulse Ox O2 Del Method O2 Flow Rate 06/06/24 12:59 82 18 95 Room Air 06/06/24 08:20 Room Air 06/06/24 07:23 83 17 96 Nasal Cannula 1 06/06/24 07:20 36.4 C L 73 18 160/79 H 96 Nasal Cannula 2 Laboratory Results Laboratory Results - last 24 hr 06/05/24 06/05/24 06/06/24 21:42 21:48 07:25 WBC RBC Hgb Hct MCV MCH MCHC RDW Std Deviation RDW Coeff of Mark Plt Count MPV Immature Gran % (Auto) Neut % (Auto) Lymph % (Auto) [place] % (Auto) Eos % (Auto) Baso % (Auto) Neut # (Auto) Lymph # (Auto) [place] # (Auto) Eos # (Auto) Baso # (Auto) Immature Gran # (Auto) Absolute Nucleated RBC Nucleated RBC % (auto) Neutrophils % (Manual) Band Neutrophils % Lymphocytes % (Manual) Prolymphocyte % Reactive Lymphs % (Man) Monocytes % (Manual) Eosinophils % (Manual) Basophils % (Manual) Metamyelocytes % (Man) Myelocytes % (Man) Promyelocytes % (Man) Blast Cells % (Manual) Plasma Cell % (Manual) Other Cells % Nucleated RBC % Neutrophils # (Manual) Band Neutrophils # Total Absolute Neuts Lymphocytes # (Manual) Prolymphocyte # Reactive Lymphs # Total Abs Lymphocytes Monocytes # (Manual) Eosinophils # (Manual) Basophils # (Manual) Metamyelocytes # (Man) Myelocytes # (Manual) Promyelocytes # (Man) Blast Cells # (Man) Plasma Cell # (Manual) Other Cells # Nucleated RBCs # (Man) Hypersegmented Neuts Hyposegmented Neuts Hypogranular Neuts Large Granular Lymphs # Lrg Granular Lymphs Hairy Cells Smudge Cells Toxic Granulation Toxic Vacuolation Dohle Bodies [place] Rods Platelet Estimate Hypogranular Platelets Giant Platelets Platelet Satelliting RBC Morphology Polychromasia Hypochromasia Poikilocytosis Basophilic Stippling Anisocytosis Microcytosis Macrocytosis Spherocytes Pappenheimer Bodies Sickle Cells Target Cells Tear Drop Cells Ovalocytes Stomatocytes [place] Bodies Echinocytes Acanthocytes (Spur) Rouleaux RBC Agglutinates Schistocytes Sezary Cell Sodium Potassium Chloride Carbon Dioxide Anion Gap BUN Creatinine Est Cr Clr Drug Dosing Est GFR ( Amer) Est GFR (Non-Af Amer) BUN/Creatinine Ratio Glucose POC Glucose 405 H* 396 H* 280 H Estimat Average Glucose Hemoglobin A1c Calcium Magnesium Blood Parasites ID 06/06/24 06/06/24 06/06/24 07:55 09:06 11:49 WBC Cancelled 18.35 H RBC Cancelled 5.11 Hgb Cancelled 16.1 Hct Cancelled 45.5 MCV Cancelled 89.0 MCH Cancelled 31.5 MCHC Cancelled 35.4 RDW Std Deviation Cancelled 48.7 H RDW Coeff of Mark Cancelled 14.8 H Plt Count Cancelled 275 MPV Cancelled 9.7 Immature Gran % (Auto) Cancelled 1.0 Neut % (Auto) Cancelled 83.4 Lymph % (Auto) Cancelled 12.7 [place] % (Auto) Cancelled 2.8 Eos % (Auto) Cancelled 0.0 Baso % (Auto) Cancelled 0.1 Neut # (Auto) Cancelled 15.29 H Lymph # (Auto) Cancelled 2.33 [place] # (Auto) Cancelled 0.52 Eos # (Auto) Cancelled 0.00 Baso # (Auto) Cancelled 0.02 Immature Gran # (Auto) Cancelled 0.19 Absolute Nucleated RBC Cancelled Nucleated RBC % (auto) Cancelled Neutrophils % (Manual) Cancelled Band Neutrophils % Cancelled Lymphocytes % (Manual) Cancelled Prolymphocyte % Cancelled Reactive Lymphs % (Man) Cancelled Monocytes % (Manual) Cancelled Eosinophils % (Manual) Cancelled Basophils % (Manual) Cancelled Metamyelocytes % (Man) Cancelled Myelocytes % (Man) Cancelled Promyelocytes % (Man) Cancelled Blast Cells % (Manual) Cancelled Plasma Cell % (Manual) Cancelled Other Cells % Cancelled Nucleated RBC % Cancelled Neutrophils # (Manual) Cancelled Band Neutrophils # Cancelled Total Absolute Neuts Cancelled Lymphocytes # (Manual) Cancelled Prolymphocyte # Cancelled Reactive Lymphs # Cancelled Total Abs Lymphocytes Cancelled Monocytes # (Manual) Cancelled Eosinophils # (Manual) Cancelled Basophils # (Manual) Cancelled Metamyelocytes # (Man) Cancelled Myelocytes # (Manual) Cancelled Promyelocytes # (Man) Cancelled Blast Cells # (Man) Cancelled Plasma Cell # (Manual) Cancelled Other Cells # Cancelled Nucleated RBCs # (Man) Cancelled Hypersegmented Neuts Cancelled Hyposegmented Neuts Cancelled Hypogranular Neuts Cancelled Large Granular Lymphs Cancelled # Lrg Granular Lymphs Cancelled Hairy Cells Cancelled Smudge Cells Cancelled Toxic Granulation Cancelled Toxic Vacuolation Cancelled Dohle Bodies Cancelled [place] Rods Cancelled Platelet Estimate Cancelled Hypogranular Platelets Cancelled Giant Platelets Cancelled Platelet Satelliting Cancelled RBC Morphology Cancelled Polychromasia Cancelled Hypochromasia Cancelled Poikilocytosis Cancelled Basophilic Stippling Cancelled Anisocytosis Cancelled Microcytosis Cancelled Macrocytosis Cancelled Spherocytes Cancelled Pappenheimer Bodies Cancelled Sickle Cells Cancelled Target Cells Cancelled Tear Drop Cells Cancelled Ovalocytes Cancelled Stomatocytes Cancelled [place] Bodies Cancelled Echinocytes Cancelled Acanthocytes (Spur) Cancelled Rouleaux Cancelled RBC Agglutinates Cancelled Schistocytes Cancelled Sezary Cell Cancelled Sodium 134 L Potassium 4.5 Chloride 105 Carbon Dioxide 19 L Anion Gap 10 BUN 27 H Creatinine 1.87 H Est Cr Clr Drug Dosing 34.2 Est GFR ( Amer) 38.8 Est GFR (Non-Af Amer) 33.4 BUN/Creatinine Ratio 14.4 Glucose 311 H* POC Glucose 324 H* Estimat Average Glucose 177 Hemoglobin A1c 7.8 H Calcium 9.5 Magnesium 2.0 Blood Parasites ID Cancelled PG Care Time/CCT Total # of Minutes Spent Total Time Spent with Patient: Total time spent is greater than 50% in coordination of care (as documented) at patient's floor/unit and/or counseling patient: Coding Level of Care Code 34919 SUB INP/OBS CARE 3/50MIN Diagnoses Acute hypoxic respiratory failure J96.01 Acute exacerbation of chronic obstructive pulmonary disease (COPD) J44.1 Diabetes mellitus, type II E11.65 Diabetes mellitus complication status: with hyperglycemia Diabetes mellitus longterm insulin use: 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 CKD (chronic kidney disease) stage 3, GFR 30-59 ml/min N18.30 Chronic kidney disease stage 3 subtype: unspecified whether 3a or 3b Hypertension I10 (3) Diabetes mellitus, type II Diabetes mellitus complication status: with hyperglycemia Diabetes mellitus longterm insulin use: 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
--- NOTE | 2024-06-06 14:51 | Pharmacy Report ---
Pharmacy Glycemic Short Note 2 - Date of Service June 06, 2024 - Glycemic Short BSG Results (Last 24 hours): 06/05/24 06/05/24 06/06/24 21:42 21:48 07:25 Glucose POC Glucose 405 H* 396 H* 280 H 06/06/24 06/06/24 06/06/24 07:55 11:49 14:10 Glucose 311 H* POC Glucose 324 H* 348 H* 06/06/24 14:13 Glucose POC Glucose 363 H* OUTPATIENT ANTIDIABETIC REGIMEN: * glipizide 5mg po bid * alogliptin 12.5mg po daily (no fill history) HbA1c 7.8% on 06/06/24 ASSESSMENT: * 79 yo male admitted 06/05 for acute exacerbation of COPD and bronchitis. Patient is a Type 2 diabetic on only oral diabetic medications as an outpatient * BSG on presentation 06/05 was 405. Lantus 5 units BID and achs novolog scale was initiated last evening. Pharmacy has been consulted to assist with inpatient glycemic management today. * Fasting BSG this morning was 280mg/dL and lunch check was 324mg/dL. An additional 10units of lantus x 1 was ordered and then further lantus has been ordered as a scale (0-15 units) bid. * An extra BSG was ordered for this afternoon and was 348 (recheck 363) so an additional 5 units of novolog was ordered x 1. * The correction factor and CHO ratio were tightened for future doses and extra BSGs were ordered for overnight (0000 and 0400). * Solumedrol 125mg iv x 1 given yesterday at 1426 and prednisone 40mg po daily started this afternoon. Patient is also ordered azithromycin po. PLAN FOR INPATIENT GLYCEMIC CONTROL: * Hold outpatient oral diabetes medications * Basal insulin * Lantus scale SQ BID (bsg < 110 give 0 units, 110-180 give 10 units, >180 give 15 units) * Bolus insulin * NovoLog per scale ACHS or Q6hrs while NPO * Goal Range: Low 110 mg/dL - High 140 mg/dL * Correction Factor: 20 mg/dL/unit * Nutritional / Prandial insulin per carb ratio of 1 unit per 7 grams CHO consumed
[2024-06-06] MEDS: INSULIN ASPART PER UNIT CHARGE SC ONE (15:00)
[2024-06-06] MEDS: predniSONE 20 MG TAB PO SCH (15:00)
[2024-06-06 20:27] VITALS: TEMP 98.1
[2024-06-06] MEDS: LANTUS PER UNIT CHARGE SQ SCH (20:48)
[2024-06-07] MEDS: INSULIN ASPART PER UNIT CHARGE SC SCH (00:25)
[2024-06-07 06:40] LABS: Basophils # (auto) 0.04 K/uL (0.00-0.20); Basophils % (auto) 0.2 %; Eosinophils # (auto) 0.01 K/uL (0.00-0.50); Hematocrit (blood only) 47.3 % (42.0-52.0); Hemoglobin 15.9 g/dl (14.0-18.0); Immature Granulocytes # (auto) 0.19 K/uL (0.01-0.20); Immature Granulocytes % (auto) 0.9 %; Lymphocytes % (auto) 10.5 %; Mean Corpuscular Hemoglobin 30.7 pg (25.0-34.0); Mean Corpuscular Hgb Conc 33.6 g/dL (32.0-36.0); Mean Corpuscular Volume 91.3 fL (80.0-100.0); Mean Platelet Volume 9.9 fL (9.4-12.4); Monocytes # (auto) 1.13 K/uL (0.11-0.59); Monocytes % (auto) 5.1 %; Neutrophils # (auto) 18.28 K/uL (1.40-6.50); Neutrophils % (auto) 83.3 %; Platelet Count 275 K/uL (130-400); RDW Coefficient of Variation 15.1 % (11.5-14.5); RDW Standard Deviation 50.6 fL (36.4-46.3); Red Blood Count 5.18 M/uL (4.70-6.10); White Blood Count 21.95 K/ul (4.8-10.8)
[2024-06-07 07:05] LABS: BUN Creatinine Ratio 20.5 (10-20); Calcium 9.7 mg/dl (8.6-10.3); Est GFR (African American) 35.7 ml/min; Est GFR (Non-African American) 30.8 ml/min; Potassium 4.7 mmol/L (3.5-5.1)
[2024-06-07 08:26] VITALS: BP 124/62
[2024-06-07] MEDS: NovoLIN-N (NPH) PER UNIT CHARGE SQ ONE (08:29)
[2024-06-07] MEDS: HEPARIN SOD 5,000 UNIT/0.5 ML VIAL SQ SCH (08:36)
[2024-06-07] MEDS ORDERED: ALBUT/IPRATROP 3MG/0.5MG NEB 3 ML VIAL INH PRN (08:46)
[2024-06-07 09:29] VITALS: PULSE 81; RESP 16; O2SAT 96
--- NOTE | 2024-06-07 11:55 | Discharge Summary ---
Discharge Summary Date of Service June 07, 2024 Principal Dx & Hospital Course #1 = Principal Diagnosis (1) Acute hypoxic respiratory failure: (2) Acute exacerbation of chronic obstructive pulmonary disease (COPD): (3) Diabetes mellitus, type II: (4) CKD (chronic kidney disease) stage 3, GFR 30-59 ml/min: (5) Hypertension: Plan 79-year-old male with past medical history of hypertension, type 2 diabetes mellitus, CKD stage III who presents with cough and shortness of breath for 5 days. Patient's home pulse oximetry was around 86% on room air and his PCP recommended he go to the ED. Patient denies any history of asthma or COPD. #Acute hypoxic respiratory failure likely secondary to COPD #Acute exacerbation of COPD Continue oxygen to maintain saturations between 89 to 92% and wean as tolerated Steroids/Prednisone 40 mg p.o. daily for 5 days (day 3/5) Continue azithromycin 500 mg p.o. daily for 3 days(day 2/3) Echo from August 2023 shows EF of 65% with mild concentric left ventricular hypertrophy, no wall motion abnormalities and grade 1 diastolic dysfunction Patient had a 2 point test done and he does not need oxygen for home use He is saturating well on room air without any complaints of chest pain, shortness of breath or any cough I have advised the patient to follow-up with his PCP and outpatient revenue integrity analyst at [facility] on discharge #Type 2 diabetes mellitus Patient is not on insulin at home A1c 7.8 Patient does not want to be on insulin on discharge and will resume his oral hypoglycemics He will follow-up with his PCP at [facility] on discharge for diabetes management #Essential hypertension #Hyperlipidemia Continue aspirin plus statin Continue metoprolol 25 mg p.o. twice daily, amlodipine 5 mg p.o. twice daily Hold lisinopril for now on review of slightly worsened creatinine I have advised patient to follow-up with his PCP at the [facility] to repeat creatinine and further advice regarding lisinopril based on PCP/nephrology at [facility] #CKD stage III Baseline creatinine is between 1.5-1.8 Hold lisinopril as creatinine is slightly elevated over his baseline Monitor renal function electrolytes Avoid nephrotoxic agents including NSAIDs Stop scheduled potassium supplement Outpatient follow-up with PCP/group home worker at [facility] Patient seen and examined. He is ambulating without any issues and saturating w ell on room air and does not need home oxygen. I have gone over the care plan with the patient including the discharge care plan, meds and follow-up in great detail and answered all his questions. 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 He presented on 06/05 for SOB and cough that started on Friday 06/01. He endorses SOB both at rest and with exertion. Worse when he lies flat on his back. He has recurrent episodes of bronchitis which sometimes turn into pneumonia. When he reach out to his PCP and told him that his home pulse ox was around 86% on room air, they recommend he come into the ED. He does not use supplemental oxygen at baseline. No CPAP at night. No history of DVT/PE. No sick contacts, however patient does have 18 great-gr andchildren who are occasionally sick. He has not been taking any additional medications at home for his symptoms. He previously had tried an albuterol inhaler, but said it did not work for him. That said, he does report symptomatic relief with albuterol nebulizer in the ED. No history of COPD or asthma to his knowledge. Patient took his regular morning medications today; no recent change in medications. He manages his own medications at home. Patient denies smoking, tobacco use, recent alcohol use. It should also be noted that the patient's of 57 years just recently a couple months ago. Patient is mildly hypertensive at 144/89; SpO2 is 93% on 2L NC; vitals otherwise stable. ED course: Rocephin 2000 mg IV Solu-Medrol 125 mg IV Albuterol 2.5 mg neb ROS: Patient endorses SOB at rest and with exertion, productive cough (clear sputum production), wheezing, and orthopnea. Patient denies fever, chills, night sweats, dizziness, lightheadedness, headaches, chest pain, chest palpitations, pleuritic CP, hemoptysis, abdominal pain, N/V/D, changes in urinary or bowel habits, burning with urination, blood in the urine or stool, or swelling or erythema of lower extremities bilaterally. Discharge Exam General: No acute distress, speaking in full sentences without any dyspnea Psych: Awake and alert HEENT: Anicteric sclera, moist oral mucosa CVS: Regular rate and rhythm Lungs: Bilateral air entry, no wheezing noted Abdomen: Soft, nontender, no rebound, no guarding Ext: No lower extremity edema, no calf tenderness Neuro: No focal motor deficits noted Discharge Plan Discharge Items Patient Disposition: Home - Self-Care Reason For Visit: ACUTE HYPOXIC RESP FAILURE, COPD Discharge Diagnosis: (1) Acute hypoxic respiratory failure: RESOLVED (2) Acute exacerbation of chronic obstructive pulmonary disease (COPD): (3) Diabetes mellitus, type II: (4) CKD (chronic kidney disease) stage 3, GFR 30-59 ml/min: (5) Hypertension: Condition on Discharge: Good Activity: Resume your previous activity Non-emergency contact: Primary Care Provider Call non-emergency contact if: you have any medication questions, your symptoms worsen and you have a fever Follow-up/Referrals: Juanita Carlson PA-C [Primary Care Provider] - [facility],Hospital [Non-Staff] - Diet: Carb Consistent or DM2 and Heart Healthy Addtl Attending Provider Instructions: DISCHARGE INSTRUCTION TO PATIENT/FAMILY: Follow-up with your primary care provider at [facility] within 1 week regarding: Posthospital discharge, medication review, medication refills and follow-up on all your medical problems, blood pressure monitoring and labs Follow-up with your revenue integrity analyst, group home worker and primary care doctor at [facility] on discharge Please take all your discharge medications, discharge information and discharge instructions to all your doctors appointments. Hold lisinopril until you follow-up follow-up with your PCP at [facility] for repeat renal function (creatinine) check and resuming medication will be based on PCP advice Avoid all NSAIDs including ibuprofen, Motrin, Advil, Aleve, naproxen, meloxicam, Toradol, diclofenac Labs through PCP in 1 week: CBC, CMP, MG Pending Studies at Discharge: No Stand-Alone Forms: My [employer], Smoking Cessation Medications and DC Order Prescriptions: New azithromycin 250 mg Tablet 500 mg PO QAM Qty: 1 0RF Rx Instructions: take on 06/08/24 prednisone 20 mg Tablet 40 mg PO DAILY Qty: 4 0RF Rx Instructions: FOR 2 DAYS WITH FOOD STARTING 06/08/24 albuterol sulfate 90 mcg/actuation HFA aerosol inhaler 2 inh inhalation Q6H PRN (Reason: shortness of breath or wheezing) Qty: 8.5 0RF Continued cetirizine 10 mg tablet 10 mg PO DAILY aspirin 81 mg tablet,delayed release (DR/EC) 81 mg PO DAILY cholecalciferol (vitamin D3) 2,000 unit Capsule 2,000 unit PO QAM pravastatin 40 mg Tablet 40 mg PO HS metoprolol tartrate 25 mg Tablet 25 mg PO UD Rx Instructions: original: 25 mg po bid patient isn't familiar with this medication and no fill history available glipizide 5 mg Tablet 5 mg PO BID alogliptin 12.5 mg Tablet 12.5 mg PO UD Rx Instructions: original: 12.5 mg po daily pt isnt familiar with this medication, no fill history available amlodipine 5 mg Tablet 5 mg PO Q12 Qty: 0 0RF cyanocobalamin (vitamin B-12) [Vitamin B-12] 500 mcg Tablet 500 mcg PO DAILY Held lisinopril 5 mg tablet 10 mg PO DAILY Discontinued potassium chloride 20 mEq Tablet Extended Release 20 meq PO BID Discharge Orders: Discharge Order (Routine); Ordered 06/07/24 Ordered By: Brent Glasgow/Other Patient Handouts: Managing Type 2 Diabetes Admission Data Admit Date/Time: 06/05/24 16:19 Attending Provider: Brent Del Toro Admit Provider: Ben Teague Primary Care Provider: Juanita Carlson Other Providers: Ben Teague; [facility],Hospital Hospital Stay Data Consultations 06/05/24 14:37 ED Decision to Admit Stat Diagnostic Imagining Performed Chest X-Ray 06/05/24 12:09 XR chest 1V not portable CLINICAL HISTORY: Chest pain, nonspecific TECHNIQUE: Single frontal radiograph of the chest was obtained. Comparison: Comparison is made to chest radiograph 03/29/2024 FINDINGS: No lines and tubes are seen. Cardiomegaly is noted. Reticular interstitial opacities are seen. No evidence of pleural effusion or pneumothorax. IMPRESSION: No acute chest disease. ACT 112: Negative or not required by law. Electronically signed by: Lavon Prabhakar M.D. 06/05/2024 1:22 PM Laboratory Results - last 48 hr 06/05/24 06/05/24 06/05/24 12:10 12:38 12:40 WBC 18.93 H RBC 5.29 Hgb 16.5 Hct 46.8 MCV 88.5 MCH 31.2 MCHC 35.3 RDW Std Deviation 48.3 H RDW Coeff of Mark 14.9 H Plt Count 284 MPV 9.4 Immature Gran % (Auto) 0.6 Neut % (Auto) 70.3 Lymph % (Auto) 20.0 Mckenzie % (Auto) 5.9 Eos % (Auto) 2.6 Baso % (Auto) 0.6 Neut # (Auto) 13.29 H Lymph # (Auto) 3.79 H Mckenzie # (Auto) 1.12 H Eos # (Auto) 0.50 Baso # (Auto) 0.11 Immature Gran # (Auto) 0.12 Absolute Nucleated RBC Nucleated RBC % (auto) Neutrophils % (Manual) Band Neutrophils % Lymphocytes % (Manual) Prolymphocyte % Reactive Lymphs % (Man) Monocytes % (Manual) Eosinophils % (Manual) Basophils % (Manual) Metamyelocytes % (Man) Myelocytes % (Man) Promyelocytes % (Man) Blast Cells % (Manual) Plasma Cell % (Manual) Other Cells % Nucleated RBC % Neutrophils # (Manual) Band Neutrophils # Total Absolute Neuts Lymphocytes # (Manual) Prolymphocyte # Reactive Lymphs # Total Abs Lymphocytes Monocytes # (Manual) Eosinophils # (Manual) Basophils # (Manual) Metamyelocytes # (Man) Myelocytes # (Manual) Promyelocytes # (Man) Blast Cells # (Man) Plasma Cell # (Manual) Other Cells # Nucleated RBCs # (Man) Hypersegmented Neuts Hyposegmented Neuts Hypogranular Neuts Large Granular Lymphs # Lrg Granular Lymphs Hairy Cells Smudge Cells Toxic Granulation Toxic Vacuolation Dohle Bodies Aaliyah Rods Platelet Estimate Hypogranular Platelets Giant Platelets Platelet Satelliting RBC Morphology Polychromasia Hypochromasia Poikilocytosis Basophilic Stippling Anisocytosis Microcytosis Macrocytosis Spherocytes Pappenheimer Bodies Sickle Cells Target Cells Tear Drop Cells Ovalocytes Stomatocytes Rod-Beechmont Bodies Echinocytes Acanthocytes (Spur) Rouleaux RBC Agglutinates Schistocytes Sezary Cell PT 10.3 INR 0.9 APTT 27 PTT Ratio 1.0 Sodium 136 Potassium 4.0 Chloride 104 Carbon Dioxide 24 Anion Gap 8 BUN 17 Creatinine 1.58 H Est Cr Clr Drug Dosing 40.6 Est GFR ( Amer) 47.5 Est GFR (Non-Af Amer) 41.0 BUN/Creatinine Ratio 10.8 Glucose 205 H POC Glucose Estimat Average Glucose Hemoglobin A1c Calcium 9.5 Magnesium Total Bilirubin 0.9 AST 15 ALT 12 Alkaline Phosphatase 76 Troponin I High Sens 5.2 B-Natriuretic Peptide 38 Total Protein 7.2 Albumin 4.2 Globulin 3.0 Albumin/Globulin Ratio 1.4 Vitamin B12 SARS-CoV-2 (PCR) NEGATIVE Influenza Type A (PCR) Negative Influenza Type B (PCR) Negative RSV (RT-PCR) Negative Group A Strep (PCR) NOT DETECTED Blood Parasites ID 06/05/24 06/05/24 06/06/24 21:42 21:48 07:25 WBC RBC Hgb Hct MCV MCH MCHC RDW Std Deviation RDW Coeff of Mark Plt Count MPV Immature Gran % (Auto) Neut % (Auto) Lymph % (Auto) Mckenzie % (Auto) Eos % (Auto) Baso % (Auto) Neut # (Auto) Lymph # (Auto) Mckenzie # (Auto) Eos # (Auto) Baso # (Auto) Immature Gran # (Auto) Absolute Nucleated RBC Nucleated RBC % (auto) Neutrophils % (Manual) Band Neutrophils % Lymphocytes % (Manual) Prolymphocyte % Reactive Lymphs % (Man) Monocytes % (Manual) Eosinophils % (Manual) Basophils % (Manual) Metamyelocytes % (Man) Myelocytes % (Man) Promyelocytes % (Man) Blast Cells % (Manual) Plasma Cell % (Manual) Other Cells % Nucleated RBC % Neutrophils # (Manual) Band Neutrophils # Total Absolute Neuts Lymphocytes # (Manual) Prolymphocyte # Reactive Lymphs # Total Abs Lymphocytes Monocytes # (Manual) Eosinophils # (Manual) Basophils # (Manual) Metamyelocytes # (Man) Myelocytes # (Manual) Promyelocytes # (Man) Blast Cells # (Man) Plasma Cell # (Manual) Other Cells # Nucleated RBCs # (Man) Hypersegmented Neuts Hyposegmented Neuts Hypogranular Neuts Large Granular Lymphs # Lrg Granular Lymphs Hairy Cells Smudge Cells Toxic Granulation Toxic Vacuolation Dohle Bodies Aaliyah Rods Platelet Estimate Hypogranular Platelets Giant Platelets Platelet Satelliting RBC Morphology Polychromasia Hypochromasia Poikilocytosis Basophilic Stippling Anisocytosis Microcytosis Macrocytosis Spherocytes Pappenheimer Bodies Sickle Cells Target Cells Tear Drop Cells Ovalocytes Stomatocytes Rod-Beechmont Bodies Echinocytes Acanthocytes (Spur) Rouleaux RBC Agglutinates Schistocytes Sezary Cell PT INR APTT PTT Ratio Sodium Potassium Chloride Carbon Dioxide Anion Gap BUN Creatinine Est Cr Clr Drug Dosing Est GFR ( Amer) Est GFR (Non-Af Amer) BUN/Creatinine Ratio Glucose POC Glucose 405 H* 396 H* 280 H Estimat Average Glucose Hemoglobin A1c Calcium Magnesium Total Bilirubin AST ALT Alkaline Phosphatase Troponin I High Sens B-Natriuretic Peptide Total Protein Albumin Globulin Albumin/Globulin Ratio Vitamin B12 SARS-CoV-2 (PCR) Influenza Type A (PCR) Influenza Type B (PCR) RSV (RT-PCR) Group A Strep (PCR) Blood Parasites ID 06/06/24 06/06/24 06/06/24 07:55 09:06 11:49 WBC Cancelled 18.35 H RBC Cancelled 5.11 Hgb Cancelled 16.1 Hct Cancelled 45.5 MCV Cancelled 89.0 MCH Cancelled 31.5 MCHC Cancelled 35.4 RDW Std Deviation Cancelled 48.7 H RDW Coeff of Mark Cancelled 14.8 H Plt Count Cancelled 275 MPV Cancelled 9.7 Immature Gran % (Auto) Cancelled 1.0 Neut % (Auto) Cancelled 83.4 Lymph % (Auto) Cancelled 12.7 Mckenzie % (Auto) Cancelled 2.8 Eos % (Auto) Cancelled 0.0 Baso % (Auto) Cancelled 0.1 Neut # (Auto) Cancelled 15.29 H Lymph # (Auto) Cancelled 2.33 Mckenzie # (Auto) Cancelled 0.52 Eos # (Auto) Cancelled 0.00 Baso # (Auto) Cancelled 0.02 Immature Gran # (Auto) Cancelled 0.19 Absolute Nucleated RBC Cancelled Nucleated RBC % (auto) Cancelled Neutrophils % (Manual) Cancelled Band Neutrophils % Cancelled Lymphocytes % (Manual) Cancelled Prolymphocyte % Cancelled Reactive Lymphs % (Man) Cancelled Monocytes % (Manual) Cancelled Eosinophils % (Manual) Cancelled Basophils % (Manual) Cancelled Metamyelocytes % (Man) Cancelled Myelocytes % (Man) Cancelled Promyelocytes % (Man) Cancelled Blast Cells % (Manual) Cancelled Plasma Cell % (Manual) Cancelled Other Cells % Cancelled Nucleated RBC % Cancelled Neutrophils # (Manual) Cancelled Band Neutrophils # Cancelled Total Absolute Neuts Cancelled Lymphocytes # (Manual) Cancelled Prolymphocyte # Cancelled Reactive Lymphs # Cancelled Total Abs Lymphocytes Cancelled Monocytes # (Manual) Cancelled Eosinophils # (Manual) Cancelled Basophils # (Manual) Cancelled Metamyelocytes # (Man) Cancelled Myelocytes # (Manual) Cancelled Promyelocytes # (Man) Cancelled Blast Cells # (Man) Cancelled Plasma Cell # (Manual) Cancelled Other Cells # Cancelled Nucleated RBCs # (Man) Cancelled Hypersegmented Neuts Cancelled Hyposegmented Neuts Cancelled Hypogranular Neuts Cancelled Large Granular Lymphs Cancelled # Lrg Granular Lymphs Cancelled Hairy Cells Cancelled Smudge Cells Cancelled Toxic Granulation Cancelled Toxic Vacuolation Cancelled Dohle Bodies Cancelled Aaliyah Rods Cancelled Platelet Estimate Cancelled Hypogranular Platelets Cancelled Giant Platelets Cancelled Platelet Satelliting Cancelled RBC Morphology Cancelled Polychromasia Cancelled Hypochromasia Cancelled Poikilocytosis Cancelled Basophilic Stippling Cancelled Anisocytosis Cancelled Microcytosis Cancelled Macrocytosis Cancelled Spherocytes Cancelled Pappenheimer Bodies Cancelled Sickle Cells Cancelled Target Cells Cancelled Tear Drop Cells Cancelled Ovalocytes Cancelled Stomatocytes Cancelled Rod-Beechmont Bodies Cancelled Echinocytes Cancelled Acanthocytes (Spur) Cancelled Rouleaux Cancelled RBC Agglutinates Cancelled Schistocytes Cancelled Sezary Cell Cancelled PT INR APTT PTT Ratio Sodium 134 L Potassium 4.5 Chloride 105 Carbon Dioxide 19 L Anion Gap 10 BUN 27 H Creatinine 1.87 H Est Cr Clr Drug Dosing 34.2 Est GFR ( Amer) 38.8 Est GFR (Non-Af Amer) 33.4 BUN/Creatinine Ratio 14.4 Glucose 311 H* POC Glucose 324 H* Estimat Average Glucose 177 Hemoglobin A1c 7.8 H Calcium 9.5 Magnesium 2.0 Total Bilirubin AST ALT Alkaline Phosphatase Troponin I High Sens B-Natriuretic Peptide Total Protein Albumin Globulin Albumin/Globulin Ratio Vitamin B12 SARS-CoV-2 (PCR) Influenza Type A (PCR) Influenza Type B (PCR) RSV (RT-PCR) Group A Strep (PCR) Blood Parasites ID Cancelled 06/06/24 06/06/24 06/06/24 14:10 14:13 16:56 WBC RBC Hgb Hct MCV MCH MCHC RDW Std Deviation RDW Coeff of Mark Plt Count MPV Immature Gran % (Auto) Neut % (Auto) Lymph % (Auto) Mckenzie % (Auto) Eos % (Auto) Baso % (Auto) Neut # (Auto) Lymph # (Auto) Mckenzie # (Auto) Eos # (Auto) Baso # (Auto) Immature Gran # (Auto) Absolute Nucleated RBC Nucleated RBC % (auto) Neutrophils % (Manual) Band Neutrophils % Lymphocytes % (Manual) Prolymphocyte % Reactive Lymphs % (Man) Monocytes % (Manual) Eosinophils % (Manual) Basophils % (Manual) Metamyelocytes % (Man) Myelocytes % (Man) Promyelocytes % (Man) Blast Cells % (Manual) Plasma Cell % (Manual) Other Cells % Nucleated RBC % Neutrophils # (Manual) Band Neutrophils # Total Absolute Neuts Lymphocytes # (Manual) Prolymphocyte # Reactive Lymphs # Total Abs Lymphocytes Monocytes # (Manual) Eosinophils # (Manual) Basophils # (Manual) Metamyelocytes # (Man) Myelocytes # (Manual) Promyelocytes # (Man) Blast Cells # (Man) Plasma Cell # (Manual) Other Cells # Nucleated RBCs # (Man) Hypersegmented Neuts Hyposegmented Neuts Hypogranular Neuts Large Granular Lymphs # Lrg Granular Lymphs Hairy Cells Smudge Cells Toxic Granulation Toxic Vacuolation Dohle Bodies Aaliyah Rods Platelet Estimate Hypogranular Platelets Giant Platelets Platelet Satelliting RBC Morphology Polychromasia Hypochromasia Poikilocytosis Basophilic Stippling Anisocytosis Microcytosis Macrocytosis Spherocytes Pappenheimer Bodies Sickle Cells Target Cells Tear Drop Cells Ovalocytes Stomatocytes Rod-Beechmont Bodies Echinocytes Acanthocytes (Spur) Rouleaux RBC Agglutinates Schistocytes Sezary Cell PT INR APTT PTT Ratio Sodium Potassium Chloride Carbon Dioxide Anion Gap BUN Creatinine Est Cr Clr Drug Dosing Est GFR ( Amer) Est GFR (Non-Af Amer) BUN/Creatinine Ratio Glucose POC Glucose 348 H* 363 H* 271 H Estimat Average Glucose Hemoglobin A1c Calcium Magnesium Total Bilirubin AST ALT Alkaline Phosphatase Troponin I High Sens B-Natriuretic Peptide Total Protein Albumin Globulin Albumin/Globulin Ratio Vitamin B12 SARS-CoV-2 (PCR) Influenza Type A (PCR) Influenza Type B (PCR) RSV (RT-PCR) Group A Strep (PCR) Blood Parasites ID 06/06/24 06/07/24 06/07/24 20:30 00:03 00:07 WBC RBC Hgb Hct MCV MCH MCHC RDW Std Deviation RDW Coeff of Mark Plt Count MPV Immature Gran % (Auto) Neut % (Auto) Lymph % (Auto) Mckenzie % (Auto) Eos % (Auto) Baso % (Auto) Neut # (Auto) Lymph # (Auto) Mckenzie # (Auto) Eos # (Auto) Baso # (Auto) Immature Gran # (Auto) Absolute Nucleated RBC Nucleated RBC % (auto) Neutrophils % (Manual) Band Neutrophils % Lymphocytes % (Manual) Prolymphocyte % Reactive Lymphs % (Man) Monocytes % (Manual) Eosinophils % (Manual) Basophils % (Manual) Metamyelocytes % (Man) Myelocytes % (Man) Promyelocytes % (Man) Blast Cells % (Manual) Plasma Cell % (Manual) Other Cells % Nucleated RBC % Neutrophils # (Manual) Band Neutrophils # Total Absolute Neuts Lymphocytes # (Manual) Prolymphocyte # Reactive Lymphs # Total Abs Lymphocytes Monocytes # (Manual) Eosinophils # (Manual) Basophils # (Manual) Metamyelocytes # (Man) Myelocytes # (Manual) Promyelocytes # (Man) Blast Cells # (Man) Plasma Cell # (Manual) Other Cells # Nucleated RBCs # (Man) Hypersegmented Neuts Hyposegmented Neuts Hypogranular Neuts Large Granular Lymphs # Lrg Granular Lymphs Hairy Cells Smudge Cells Toxic Granulation Toxic Vacuolation Dohle Bodies Aaliyah Rods Platelet Estimate Hypogranular Platelets Giant Platelets Platelet Satelliting RBC Morphology Polychromasia Hypochromasia Poikilocytosis Basophilic Stippling Anisocytosis Microcytosis Macrocytosis Spherocytes Pappenheimer Bodies Sickle Cells Target Cells Tear Drop Cells Ovalocytes Stomatocytes Rod-Beechmont Bodies Echinocytes Acanthocytes (Spur) Rouleaux RBC Agglutinates Schistocytes Sezary Cell PT INR APTT PTT Ratio Sodium Potassium Chloride Carbon Dioxide Anion Gap BUN Creatinine Est Cr Clr Drug Dosing Est GFR ( Amer) Est GFR (Non-Af Amer) BUN/Creatinine Ratio Glucose POC Glucose 224 H 302 H* 280 H Estimat Average Glucose Hemoglobin A1c Calcium Magnesium Total Bilirubin AST ALT Alkaline Phosphatase Troponin I High Sens B-Natriuretic Peptide Total Protein Albumin Globulin Albumin/Globulin Ratio Vitamin B12 SARS-CoV-2 (PCR) Influenza Type A (PCR) Influenza Type B (PCR) RSV (RT-PCR) Group A Strep (PCR) Blood Parasites ID 06/07/24 06/07/24 06/07/24 04:10 06:10 07:37 WBC 21.95 H RBC 5.18 Hgb 15.9 Hct 47.3 MCV 91.3 MCH 30.7 MCHC 33.6 RDW Std Deviation 50.6 H RDW Coeff of Mark 15.1 H Plt Count 275 MPV 9.9 Immature Gran % (Auto) 0.9 Neut % (Auto) 83.3 Lymph % (Auto) 10.5 Mckenzie % (Auto) 5.1 Eos % (Auto) 0.0 Baso % (Auto) 0.2 Neut # (Auto) 18.28 H Lymph # (Auto) 2.30 Mckenzie # (Auto) 1.13 H Eos # (Auto) 0.01 Baso # (Auto) 0.04 Immature Gran # (Auto) 0.19 Absolute Nucleated RBC Nucleated RBC % (auto) Neutrophils % (Manual) Band Neutrophils % Lymphocytes % (Manual) Prolymphocyte % Reactive Lymphs % (Man) Monocytes % (Manual) Eosinophils % (Manual) Basophils % (Manual) Metamyelocytes % (Man) Myelocytes % (Man) Promyelocytes % (Man) Blast Cells % (Manual) Plasma Cell % (Manual) Other Cells % Nucleated RBC % Neutrophils # (Manual) Band Neutrophils # Total Absolute Neuts Lymphocytes # (Manual) Prolymphocyte # Reactive Lymphs # Total Abs Lymphocytes Monocytes # (Manual) Eosinophils # (Manual) Basophils # (Manual) Metamyelocytes # (Man) Myelocytes # (Manual) Promyelocytes # (Man) Blast Cells # (Man) Plasma Cell # (Manual) Other Cells # Nucleated RBCs # (Man) Hypersegmented Neuts Hyposegmented Neuts Hypogranular Neuts Large Granular Lymphs # Lrg Granular Lymphs Hairy Cells Smudge Cells Toxic Granulation Toxic Vacuolation Dohle Bodies Aaliyah Rods Platelet Estimate Hypogranular Platelets Giant Platelets Platelet Satelliting RBC Morphology Polychromasia Hypochromasia Poikilocytosis Basophilic Stippling Anisocytosis Microcytosis Macrocytosis Spherocytes Pappenheimer Bodies Sickle Cells Target Cells Tear Drop Cells Ovalocytes Stomatocytes Rod-Beechmont Bodies Echinocytes Acanthocytes (Spur) Rouleaux RBC Agglutinates Schistocytes Sezary Cell PT INR APTT PTT Ratio Sodium 133 L Potassium 4.7 Chloride 103 Carbon Dioxide 21 Anion Gap 9 BUN 41 H Creatinine 2.00 H Est Cr Clr Drug Dosing 32.0 Est GFR ( Amer) 35.7 Est GFR (Non-Af Amer) 30.8 BUN/Creatinine Ratio 20.5 H Glucose 288 H POC Glucose 254 H 243 H Estimat Average Glucose Hemoglobin A1c Calcium 9.7 Magnesium Total Bilirubin AST ALT Alkaline Phosphatase Troponin I High Sens B-Natriuretic Peptide Total Protein Albumin Globulin Albumin/Globulin Ratio Vitamin B12 682 SARS-CoV-2 (PCR) Influenza Type A (PCR) Influenza Type B (PCR) RSV (RT-PCR) Group A Strep (PCR) Blood Parasites ID Pending Results Patient Have Any Pending Studies at Discharge: No Discharge Instructions Given to Patient (Per Discharging Provider) DISCHARGE INSTRUCTION TO PATIENT/FAMILY: Follow-up with your primary care provider [facility] within 1 week regarding: Posthospital discharge, medication review, medication refills and follow-up on all your medical problems, blood pressure monitoring and labs Follow-up with your revenue integrity analyst, group home worker and primary care doctor at [facility] on discharge Please take all your discharge medications, discharge information and discharge instructions to all your doctors appointments. Hold lisinopril until you follow-up follow-up with your PCP at [facility] for repeat renal function (creatinine) check and resuming medication will be based on PCP advice Avoid all NSAIDs including ibuprofen, Motrin, Advil, Aleve, naproxen, meloxicam, Toradol, diclofenac Labs through PCP in 1 week: CBC, CMP, MG Total Time Total Time Spent Total Time Spent (In Minutes): 40 minutes Coding Level of Care Code 67525 INP/OBS DISCH >30 MIN Diagnoses Acute hypoxic respiratory failure J96.01 Acute exacerbation of chronic obstructive pulmonary disease (COPD) J44.1 Diabetes mellitus, type II E11.65 Diabetes mellitus complication status: with hyperglycemia Diabetes mellitus nursing home insulin use: unspecified meterman insulin use status CKD (chronic kidney disease) stage 3, GFR 30-59 ml/min N18.30 Chronic kidney disease stage 3 subtype: unspecified whether 3a or 3b Hypertension I10
[2024-06-08] MEDS ORDERED: INSULIN ASPART PER UNIT CHARGE SC SCH
== END 2024-06-07 12:53 | disposition home or self-care (01) | DRG 189 ==
LOC: ED 11:49 → SUATTDRO 16:19 → EDINP 16:19 → 3W 20:35

== ENCOUNTER 2024-09-17 09:14 | Inpatient (IN) ==
--- NOTE | 2024-09-17 09:51 | Emergency Department Note ---
Impression & Plan SOB (shortness of breath), COPD (chronic obstructive pulmonary disease), Coronavirus infection ED Provider Note NAME: AMI ALONSO AGE: 79 SEX: M : 1945 ARRIVES VIA: Walk-In INFORMANT: Patient, ED PROVIDER(S): Nigel Fried DO CHIEF COMPLAINT: Chest pain HPI: The patient is a 79-year-old male who presented to the emergency department with family for an evaluation of chest pain. The patient has been having problems with chest pain as well as difficulty breathing over the course of the last several days. He started getting worse yesterday. He called his primary care physician and was referred to the emergency department. The patient denies having any fever or hemoptysis. He denies having any new lower extremity swelling or pain. The patient has been compliant with his outpatient medications otherwise. ROS: See above HPI for pertinent positives & negatives. A total of 10 systems reviewed and were otherwise negative. PAST MEDICAL HISTORY: See Below PAST SURGICAL HISTORY: See Below FAMILY HISTORY: See Below SOCIAL HISTORY: See Below HOME MEDICATIONS: See Below ALLERGIES: See Below VITALS: See Below PHYSICAL EXAMINATION: GENERAL: Patient is awake alert in no acute distress patient is resting comfortably and showing no signs of anxiety EYES: The conjunctivae are clear. The pupils are round and reactive. EARS, NOSE, MOUTH AND THROAT: The nose is without any evidence of any deformity. NECK: The neck is nontender and supple. RESPIRATORY: Diminished breath sounds are noted in the right lung field. CARDIOVASCULAR: Regular rate and rhythm noted there no murmurs rubs or gallops normal S1 normal S2. GASTROINTESTINAL: The abdomen is soft. Abdomen is nontender. MUSCULOSKELETAL/EXTREMITIES: There is no evidence of gross deformity full range of motion is noted in the hips and shoulders. SKIN: There is no obvious evidence of any rash. Trace pedal edema was noted. Skin is warm and dry. NEUROLOGIC: Patient is awake alert and oriented x3 MEDICAL DECISION MAKING: The patient is a 79-year-old male who presented to the emergency department for an evaluation of shortness of breath. The patient does have a history of COPD. He also has coronavirus history. The patient was having cough and difficulty breathing as well as chest pain. He presented to the emergency department with family. The patient was placed on supplemental oxygen. He was treated with DuoNeb treatment. He was hypoxic on a few occasions. I discussed the patient's laboratory and radiographic studies with him. Given his findings I discussed his condition with the on-call [facility] hospitalist. They have agreed to evaluate the patient in the emergency department for further management and disposition. Triage Nursing notes reviewed. Prior medical records reviewed Vital Signs: reviewed and remarkable for episode of hypoxia. Differential diagnosis: Cardiac ischemia, aortic dissection, pulmonary embolism, pneumothorax, pneumonia, pericarditis, myocarditis, esophageal rupture, GERD, cholecystitis, pancreatitis, musculoskeletal, as well as other pathologies. ER treatment provided: See below Diagnostics interpreted by me: ECG: EKG was obtained in the emergency department. My interpretation is sinus rhythm at 67 bpm. First-degree AV block was noted with a right bundle branch block pattern. This was compared to a tracing from June 05, 2024. The bundle branch block is new compared to the earlier tracing otherwise no changes were noted. Cardiac Monitoring: An order was placed for continuous cardiac monitoring. The monitor shows a rate of 80 bpm with sinus rhythm. Laboratory studies: As stated above and show below. Imaging studies: See below. Radiographic imaging was reviewed by myself Consultation(s): I discussed this case with Dr. Gomez who is on-call for the [facility] hospitalist group. 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 (Acute) COVID Left breast mass (Acute) Hypertension (Acute) Acute hypoxic respiratory failure Hyperlipidemia Diabetes mellitus, type II (Acute) CKD (chronic kidney disease) stage 3, GFR 30-59 ml/min (Acute) Substernal precordial chest pain (Acute) SOB (shortness of breath) (Acute) Mitral regurgitation Calculus of proximal left ureter (Acute) Hydronephrosis due to obstruction of ureter (Acute) Vision loss of left eye (Chronic) Medical History Hypoxic Pneumonia due to COVID-19 virus Hyperglycemia Leukocytosis Chest pain Acute kidney injury superimposed on CKD Cervical pain (neck) Pulmonary nodules Dyspnea on exertion Orthopnea Osteoarthritis Nephrolithiasis Surgical History Hx of cystoscopy STENT INSERTION AND NOW HAS CHRONIC PAIN IN LEFT LEG SINCE SURGERY H/O eye surgery RETINA REPAIR IN BOTH EYES Family History Father Congestive heart failure Mother Cancer Social History Smoking Status: Never smoker Tobacco Type: Cigarettes Second Hand Exposure: No; Do You Dip or Chew Tobacco: No; Hx Alcohol Use: No Hx Substance Use: No Preferred Language: Greenlandic Communication Ability: Effective Visual Impairment: Partially Limited Councilperson Required: No Beliefs That Will Affect Care: None marital status: / Current Living Situation: Alone current occupational status: retired How many Children do You have: 3 Feels Safe at Home: Yes Safety Concerns: Feels Safe At This Time Diet: diabetic during the past year weight has: remained stable Assistive Devices: Oxygen - Continuous Allergies Allergies Allergy/AdvReac Type Severity Reaction Status Date / Time Influenza Virus Vaccines Allergy Severe Shortness Verified 09/17/24 13:02 of breath albuterol Allergy Mild Verified 09/17/24 13:02 ipratropium [From Combivent] Allergy Unknown On med Unverified 09/17/24 13:02 list from [facility] atorvastatin AdvReac Intermediate Cramping Verified 09/17/24 13:02 of the Muscles simvastatin AdvReac Intermediate Cramping Verified 09/17/24 13:02 of the Muscles Unknown antibiotic AdvReac visual Uncoded 04/21/24 13:15 disturbance/diarrhea Home Meds Home Medications Medication Instructions Recorded Confirmed cholecalciferol (vitamin D3) 50 2,000 unit PO QAM 09/20/18 09/17/24 mcg (2,000 unit) capsule pravastatin 40 mg tablet 40 mg PO HS 09/20/18 09/17/24 potassium chloride 20 mEq 20 meq PO BID 05/19/21 09/17/24 tablet,extended release aspirin 81 mg tablet,delayed 81 mg PO DAILY 06/20/21 09/17/24 release cetirizine 10 mg tablet 10 mg PO DAILY 06/20/21 09/17/24 cyanocobalamin (vitamin B-12) 500 500 mcg PO Q OTHER DAY 03/28/22 09/17/24 mcg tablet (Vitamin B-12) acetaminophen 500 mg tablet 500 mg PO Q6H PRN Pain 09/17/24 09/17/24 amlodipine 5 mg tablet 5 mg PO BID 09/17/24 09/17/24 dexamethasone 0.5 mg tablet 0 mg PO DAILY 09/17/24 09/17/24 fluticasone propionate 50 2 spray intranasal BID 09/17/24 09/17/24 mcg/actuation nasal spray,suspension glipizide 10 mg tablet 10 mg PO BID 09/17/24 09/17/24 lisinopril 10 mg tablet 10 mg PO DAILY 09/17/24 09/17/24 metoprolol tartrate 50 mg tablet 25 mg PO BID 09/17/24 09/17/24 sitagliptin 50 mg tablet 50 mg PO DAILY 09/17/24 09/17/24 trazodone 50 mg tablet 50 mg PO HS PRN Sleep 09/17/24 09/17/24 Results & Data (ED) Vital Signs Vital Signs - 24 hr 09/17/24 09:23 09/17/24 09:45 09/17/24 09:53 Temperature 36.9 C Temperature Source Temporal Artery Scan Pulse Rate 67 68 66 Pulse Rate [Apical] Pulse Rate from SpO2 Sensor 63 Respiratory Rate 18 16 Respiratory Effort / Characteristics Non-Labored Spontaneous Respiratory Depth Normal Blood Pressure 134/77 Blood Pressure [Right Arm] Blood Pressure Mean 96 Blood Pressure Mean [Right Arm] Blood Pressure Position Sitting Pulse Oximetry 94 92 Oxygen Delivery Method Room Air Oxygen Flow Rate Sepsis Recent Fever Within 48 Hours No Sepsis New/Unexplained Change in Mental Status No Sepsis Action Taken by Nursing No Action Required Fraction of Inspired Oxygen - Titration Pulse Oximetry Post Tiitration 09/17/24 10:09 09/17/24 10:30 09/17/24 10:35 Temperature Temperature Source Pulse Rate 72 59 L Pulse Rate [Apical] Pulse Rate from SpO2 Sensor 58 L Respiratory Rate 17 Respiratory Effort / Characteristics Respiratory Depth Blood Pressure Blood Pressure [Right Arm] Blood Pressure Mean Blood Pressure Mean [Right Arm] Blood Pressure Position Pulse Oximetry 91 89 L Oxygen Delivery Method Nasal Cannula Oxygen Flow Rate 0 Sepsis Recent Fever Within 48 Hours Sepsis New/Unexplained Change in Mental Status Sepsis Action Taken by Nursing Fraction of Inspired Oxygen - Titration 2 Pulse Oximetry Post Tiitration 97 09/17/24 11:00 09/17/24 11:27 09/17/24 11:30 Temperature Temperature Source Pulse Rate 56 L 56 L Pulse Rate [Apical] Pulse Rate from SpO2 Sensor 55 L 56 L Respiratory Rate 18 20 Respiratory Effort / Characteristics Respiratory Depth Blood Pressure 137/74 Blood Pressure [Right Arm] Blood Pressure Mean 105 Blood Pressure Mean [Right Arm] Blood Pressure Position Pulse Oximetry 96 96 Oxygen Delivery Method Nasal Cannula Nasal Cannula Oxygen Flow Rate 2 2 Sepsis Recent Fever Within 48 Hours Sepsis New/Unexplained Change in Mental Status Sepsis Action Taken by Nursing Fraction of Inspired Oxygen - Titration Pulse Oximetry Post Tiitration 09/17/24 13:30 09/17/24 14:04 Temperature Temperature Source Pulse Rate 66 Pulse Rate [Apical] 58 L Pulse Rate from SpO2 Sensor Respiratory Rate 17 Respiratory Effort / Characteristics Respiratory Depth Blood Pressure Blood Pressure [Right Arm] 136/70 Blood Pressure Mean Blood Pressure Mean [Right Arm] 92 Blood Pressure Position Pulse Oximetry 95 Oxygen Delivery Method Nasal Cannula Oxygen Flow Rate 2 Sepsis Recent Fever Within 48 Hours Sepsis New/Unexplained Change in Mental Status Sepsis Action Taken by Nursing Fraction of Inspired Oxygen - Titration Pulse Oximetry Post Tiitration Home Medications Current Medication List: was personally reviewed by me Laboratory Data Attestation: I reviewed the patient's lab results. 09/17/24 09:38 09/17/24 09:38 Lab Results 09/17/24 09/17/24 Range/Units 09:38 09:40 WBC 16.11 H (4.8-10.8) K/ul RBC 5.64 (4.70-6.10) M/uL Hgb 17.4 (14.0-18.0) g/dl Hct 51.1 (42.0-52.0) % MCV 90.6 (80.0-100.0) fL MCH 30.9 (25.0-34.0) pg MCHC 34.1 (32.0-36.0) g/dL RDW Std Deviation 48.4 H (36.4-46.3) fL RDW Coeff of Mark 14.7 H (11.5-14.5) % Plt Count 282 (130-400) K/uL MPV 9.3 L (9.4-12.4) fL Immature Gran % (Auto) 0.6 % Neut % (Auto) 60.5 % Lymph % (Auto) 25.6 % Person % (Auto) 5.8 % Eos % (Auto) 6.8 % Baso % (Auto) 0.7 % Neut # (Auto) 9.74 H (1.40-6.50) K/uL Lymph # (Auto) 4.13 H (1.20-3.40) K/uL Person # (Auto) 0.93 H (0.11-0.59) K/uL Eos # (Auto) 1.09 H (0.00-0.50) K/uL Baso # (Auto) 0.12 (0.00-0.20) K/uL Immature Gran # (Auto) 0.10 (0.01-0.20) K/uL PT 10.4 (9.0-12.0) Seconds INR 1.0 (0.9-1.1) APTT 27 (21-31) Seconds PTT Ratio 1.0 Sodium 137 (136-145) mmol/L Potassium 4.1 (3.5-5.1) mmol/L Chloride 103 (98-107) mmol/L Carbon Dioxide 28 (21-32) mmol/L Anion Gap 6 (3-11) BUN 19 (6-23) mg/dl Creatinine 1.67 H (0.6-1.4) mg/dl Est Cr Clr Drug Dosing 38.3 ml/min eGFR 41.38 BUN/Creatinine Ratio 11.4 (10-20) Glucose 145 H (70-99(Fasting)) mg/dl Calcium 9.5 (8.6-10.3) mg/dl Total Bilirubin 1.1 H (0.2-1.0) mg/dl AST 16 (13-39) U/L ALT 11 (7-52) U/L Alkaline Phosphatase 95 (34-104) U/L Troponin I High Sens 7.0 (0-20) pg/ml Total Protein 7.9 (6.0-8.3) gm/dl Albumin 4.5 (3.4-5.0) gm/dl Globulin 3.4 (2.5-4.0) gm/dl Albumin/Globulin Ratio 1.3 (0.9-2) Lipase 36 (11-82) U/L Adenovirus (PCR) Not Detected (NotDetected) B. pertussis DNA (PCR) Not Detected (NotDetected) B.parapertussis DNA PCR Not Detected (NotDetected) C. pneumoniae DNA (PCR) Not Detected (NotDetected) Coronavirus OC43 (PCR) Not Detected (NotDetected) Coronavirus HKU1 (PCR) Not Detected (NotDetected) Coronavirus 229E (PCR) Not Detected (NotDetected) SARS-CoV-2 (PCR) Not Detected (NotDetected) Coronavirus NL63 (PCR) DETECTED A (NotDetected) Human Metapneumovir PCR Not Detected (NotDetected) Influenza Type A (PCR) Not Detected (NotDetected) Influenza Type B (PCR) Not Detected (NotDetected) M. pneumoniae (PCR) Not Detected (NotDetected) Parainfluenza 1 (PCR) Not Detected (NotDetected) Parainfluenza 2 (PCR) Not Detected (NotDetected) Parainfluenza 3 (PCR) Not Detected (NotDetected) Parainfluenza 4 (PCR) Not Detected (NotDetected) RSV (PCR) Not Detected (NotDetected) Entero/Rhino (PCR) Not Detected (NotDetected) Administered Medications Amlodipine Besylate (Amlodipine Besylate 5 Mg Tab) 5 mg PO BID [facility] Stop: 10/17/24 20:59 Last Admin: 09/17/24 20:36 Dose: 5 mg Documented By: MANASA Aspirin (Aspirin 81 Mg Ectab) 81 mg PO DAILY [facility] Stop: 10/17/24 17:40 Last Admin: 09/17/24 19:09 Dose: 81 mg Documented By: PARRISH Azithromycin (Azithromycin 250 Mg Tab) 500 mg PO QAM [facility] Stop: 09/19/24 09:01 Last Admin: 09/17/24 19:09 Dose: 500 mg Documented By: PARRISH Budesonide (Budesonide 0.5 Mg/2 Ml Vial (Pulmicort)) 0.5 mg NEB BIDR [facility] Stop: 10/17/24 18:59 Last Admin: 09/17/24 18:50 Dose: 0.5 mg Documented By: LEDA Fluticasone Propionate (Fluticasone Propionate Na Spr 16 Gm Btl) 2 sprays NA BID [facility] Stop: 10/17/24 20:59 Last Admin: 09/17/24 20:38 Dose: 2 sprays Documented By: MANASA Formoterol Fumarate (Formoterol 20 Mcg/2 Ml Vial) 20 mcg NEB BIDR TRAV Stop: 10/17/24 18:59 Last Admin: 09/17/24 18:50 Dose: 20 mcg Documented By: LEDA Guaifenesin (Guaifenesin 600 Mg Tabcr) 1,200 mg PO Q12 TRAV Stop: 10/17/24 20:59 Last Admin: 09/17/24 20:37 Dose: 1,200 mg Documented By: MANASA Methylprednisolone 40 mg/ (Syringe) 0.64 mls @ 1.5 mls/min IV DAILY TRAV Stop: 10/17/24 18:29 Last Admin: 09/17/24 19:07 Dose: 1.5 mls/min Documented By: PARRISH Insulin Aspart (Insulin Aspart Per Unit Charge) 0 units SC ACHS TRAV Stop: 10/17/24 18:29 Last Admin: 09/17/24 20:48 Dose: 4 units Documented By: MANASA Co-signed By: CHRISTOPHER Admin: 09/17/24 19:11 Dose: 10 units Documented By: PARRISH Co-signed By: BRETT Lisinopril (Lisinopril 10 Mg Tab) 10 mg PO DAILY TRAV Stop: 10/17/24 17:40 Last Admin: 09/17/24 19:09 Dose: 10 mg Documented By: PARRISH Metoprolol Tartrate (Metoprolol Tartrate 25 Mg Tab) 25 mg PO BID TRAV Stop: 10/17/24 20:59 Last Admin: 09/17/24 20:37 Dose: 25 mg Documented By: MANASA Potassium Chloride (Potassium Chloride Crtab 20 Meq Tabcr) 20 meq PO BID TRAV Stop: 10/17/24 20:59 Last Admin: 09/17/24 20:39 Dose: 20 meq Documented By: MANASA Pravastatin Sodium (Pravastatin Sod 40 Mg Tab) 40 mg PO HS TRAV Stop: 10/17/24 20:59 Last Admin: 09/17/24 20:36 Dose: 40 mg Documented By: MANASA Discontinued Medications Albuterol (Albut/Ipratrop 3mg/0.5mg Neb 3 Ml Vial) 3 ml NEB NOW STA; Protocol Stop: 09/17/24 13:05 Last Admin: 09/17/24 13:41 Dose: 3 ml Documented By: LCD Insulin Glargine (Lantus Per Unit Charge) 16 units SQ ONE ONE Stop: 09/17/24 18:31 Last Admin: 09/17/24 19:10 Dose: 16 units Documented By: PARRISH Co-signed By: BRETT Imaging Data Attestation: I personally reviewed and interpreted this imaging study as follows: My Impression: 1 view chest x-ray was obtained in the emergency department. My interpretation is no free air or definite infiltrate, final report below. Radiologist's Impression: Chest X-Ray 09/17/24 09:36 XR chest 1V portable CLINICAL HISTORY: Chest pain, nonspecific COMPARISON STUDY: 06/05/2024 FINDINGS: Stable mild cardiomegaly without pulmonary vascular congestion. No effusion, consolidation, or pneumothorax. IMPRESSION: No acute findings. ACT 112: Negative or not required by law. Electronically signed by: Dalton Naranjo M.D. 09/17/2024 9:59 AM Discharge Plan Visit Data Chief Complaint: Cardiac Assessment Stated Complaint: CHEST TIGHT, SORE THROAT, ON OXYGEN/LOW 84 ED Provider: Nigel Fried Discharge Problem: SOB (shortness of breath), COPD (chronic obstructive pulmonary disease), Coronavirus infection Patient Disposition: Admitted As Inpatient Discharge Instructions Interventions: ED Discharge Assessment Last Done: 09/17/24 16:54 Discharge Problem: COPD (chronic obstructive pulmonary disease) Qualifiers: COPD type: unspecified COPD Qualified Code(s): J44.9 - Chronic obstructive pulmonary disease, unspecified
[2024-09-17 09:58] LABS: Basophils # (auto) 0.12 K/uL (0.00-0.20); Basophils % (auto) 0.7 %; Eosinophils # (auto) 1.09 K/uL (0.00-0.50); Eosinophils % (auto) 6.8 %; Hematocrit (blood only) 51.1 % (42.0-52.0); Hemoglobin 17.4 g/dl (14.0-18.0); Immature Granulocytes % (auto) 0.6 %; Lymphocytes # (auto) 4.13 K/uL (1.20-3.40); Lymphocytes % (auto) 25.6 %; Mean Corpuscular Hemoglobin 30.9 pg (25.0-34.0); Mean Corpuscular Hgb Conc 34.1 g/dL (32.0-36.0); Mean Corpuscular Volume 90.6 fL (80.0-100.0); Mean Platelet Volume 9.3 fL (9.4-12.4); Monocytes # (auto) 0.93 K/uL (0.11-0.59); Monocytes % (auto) 5.8 %; Neutrophils # (auto) 9.74 K/uL (1.40-6.50); Neutrophils % (auto) 60.5 %; Platelet Count 282 K/uL (130-400); RDW Coefficient of Variation 14.7 % (11.5-14.5); RDW Standard Deviation 48.4 fL (36.4-46.3); Red Blood Count 5.64 M/uL (4.70-6.10); White Blood Count 16.11 K/ul (4.8-10.8)
--- NOTE | 2024-09-17 10:01 | XRay Report ---
XR chest 1V portable CLINICAL HISTORY: Chest pain, nonspecific COMPARISON STUDY: 06/05/2024 FINDINGS: Stable mild cardiomegaly without pulmonary vascular congestion. No effusion, consolidation, or pneumothorax. IMPRESSION: No acute findings. ACT 112: Negative or not required by law. Electronically signed by: Dalton Naranjo M.D. 09/17/2024 9:59 AM
[2024-09-17 10:17] LABS: Albumin Globulin Ratio 1.3 (0.9-2); Albumin Level 4.5 gm/dl (3.4-5.0); BUN Creatinine Ratio 11.4 (10-20); Bilirubin,Total 1.1 mg/dl (0.2-1.0); Calcium 9.5 mg/dl (8.6-10.3); Creatinine Clr Calc Pharmacy 38.3 ml/min; Globulin 3.4 gm/dl (2.5-4.0); Potassium 4.1 mmol/L (3.5-5.1); Total Protein 7.9 gm/dl (6.0-8.3)
[2024-09-17 10:24] LABS: Partial Thromboplastin Time 27 Seconds (21-31); Prothrombin Time 10.4 Seconds (9.0-12.0)
[2024-09-17 10:57] LABS: Adenovirus PCR Not Detected (NotDetected); Bordetella parapertussis PCR Not Detected (NotDetected); Bordetella pertussis PCR Not Detected (NotDetected); Chlamydia pneumoniae PCR Not Detected (NotDetected); Coronavirus 229E PCR Not Detected (NotDetected); Coronavirus CoV-2 (COVID19)PCR Not Detected (NotDetected); Coronavirus HKU1 PCR Not Detected (NotDetected); Coronavirus NL63 PCR DETECTED (NotDetected); Coronavirus OC43PCR Not Detected (NotDetected); Human Metapneumovirus PCR Not Detected (NotDetected); Influenza A PCR Not Detected (NotDetected); Influenza B PCR Not Detected (NotDetected); Mycoplasma pneumoniae PCR Not Detected (NotDetected); Parainfluenza Virus 1 PCR Not Detected (NotDetected); Parainfluenza Virus 2 PCR Not Detected (NotDetected); Parainfluenza Virus 3 PCR Not Detected (NotDetected); Parainfluenza Virus 4 PCR Not Detected (NotDetected); Respiratory Syncytial VirusPCR Not Detected (NotDetected); Rhinovirus/Enterovirus PCR Not Detected (NotDetected)
[2024-09-17] MEDS: ALBUT/IPRATROP 3MG/0.5MG NEB 3 ML VIAL NEB STA (13:41)
--- NOTE | 2024-09-17 14:51 | History & Physical Report ---
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 He presents with cough, sore throat, postnasal drip, sinus pressure, and dyspnea with exertion x 2 days. He was mildly hypoxic on presentation, currently 95% on 2 L NC. He reports these exacerbations occur approximately twice a year. He did just have recent PFTs in August 2024, and per review of report "the results of DLCO testing are questionable due to the patient's inability to perform the maneuvers according t o the ATS standards." Patient typically wears 2 L O2 via NC HS at home; does not typically need supplemental O2 during the day at home. CXR without acute findings Leukocytosis of 16 on admission. It does appear that some degree of leukocytosis is chronic Positive coronavirus NL63 on presentation Supplemental oxygen as needed to mean SpO2 89-92% Solu-Medrol 40 mg IV once daily Azithromycin 500 mg p.o. daily x 3 days Formoterol neb BID Budesonide neb BID Guaifenesin 1200 mg p.o. BID Fluticasone nasal spray BID (2) Diabetes mellitus, type II: Plan: Last A1c 7.8% on 06/06/2024 -Takes glipizide, alogliptin at home - hold while inpatient -Will start patient on Lantus 5u BID -SSI with target BSG range 110-140mg/dL, CF 25, carb ratio 10 -BSG ACHS -Pharmacy glycemic consult placed given steroid use -AM A1c (3) Hypertension: Plan: Chronic, stable -Continue amlodipine, metoprolol, lisinopril, and aspirin -Most recent BP 136/70 (4) CKD (chronic kidney disease) stage 3, GFR 30-59 ml/min: Plan: Baseline creatine ~1.6 Cr=1.67 on admission Encourage oral fluid intake Monitor with a.m. BMP (5) Acute hypoxic respiratory failure: Plan VTE PPx: SCDs CODE STATUS: DNR/DNI History of Present Illness Chief Complaint: COPD exacerbation Primary Care Provider: Juanita Carlson PA-C Mr. 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 He presents with cough, sore throat, postnasal drip, sinus pressure, and dyspnea with exertion x 2 days. He notes that his cough is productive with clear sputum. He was found to be mildly hypoxic at 89% on room air on presentation. He does not wear supplemental O2 during the day at baseline. He does wear 2 L via NC at bedtime at home. He denies recent fever, chills, headache, rhinorrhea, earache. He had just finished a breathing treatment prior to my evaluation. He denies any shortness of breath or wheezing at this time. He reports he has "these episodes" usually twice a year. He reports smoking history of 1 ppd when in the , but no tobacco use x 60 years now. He had PFTs done in August 2024; reviewed posttest, states results are questionable due to the patient's inability to perform the maneuvers according to ATS standards. Reviewed CODE STATUS and patient expresses his wishes of DNR/DNI. Allergies Allergy/AdvReac Type Severity Reaction Status Date / Time Influenza Virus Vaccines Allergy Severe Shortness Verified 09/17/24 13:02 of breath albuterol Allergy Mild Verified 09/17/24 13:02 ipratropium [From Combivent] Allergy Unknown On med Unverified 09/17/24 13:02 list from [facility] atorvastatin AdvReac Intermediate Cramping Verified 09/17/24 13:02 of the Muscles simvastatin AdvReac Intermediate Cramping Verified 09/17/24 13:02 of the Muscles Unknown antibiotic AdvReac visual Uncoded 04/21/24 13:15 disturbance/diarrhea Home Medications Medication Instructions Recorded Confirmed Type cholecalciferol (vitamin D3) 50 2,000 unit PO QAM 09/20/18 09/17/24 History mcg (2,000 unit) capsule pravastatin 40 mg tablet 40 mg PO HS 09/20/18 09/17/24 History potassium chloride 20 mEq 20 meq PO BID 05/19/21 09/17/24 History tablet,extended release aspirin 81 mg tablet,delayed 81 mg PO DAILY 06/20/21 09/17/24 History release cetirizine 10 mg tablet 10 mg PO DAILY 06/20/21 09/17/24 History cyanocobalamin (vitamin B-12) 500 500 mcg PO Q OTHER DAY 03/28/22 09/17/24 History mcg tablet (Vitamin B-12) acetaminophen 500 mg tablet 500 mg PO Q6H PRN Pain 09/17/24 09/17/24 History amlodipine 5 mg tablet 5 mg PO BID 09/17/24 09/17/24 History dexamethasone 0.5 mg tablet 0 mg PO DAILY 09/17/24 09/17/24 History fluticasone propionate 50 2 spray intranasal BID 09/17/24 09/17/24 History mcg/actuation nasal spray,suspension glipizide 10 mg tablet 10 mg PO BID 09/17/24 09/17/24 History lisinopril 10 mg tablet 10 mg PO DAILY 09/17/24 09/17/24 History metoprolol tartrate 50 mg tablet 25 mg PO BID 09/17/24 09/17/24 History sitagliptin 50 mg tablet 50 mg PO DAILY 09/17/24 09/17/24 History trazodone 50 mg tablet 50 mg PO HS PRN Sleep 09/17/24 09/17/24 History 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 (Acute) COVID Left breast mass (Acute) Hypertension (Acute) Acute hypoxic respiratory failure Hyperlipidemia Diabetes mellitus, type II (Acute) CKD (chronic kidney disease) stage 3, GFR 30-59 ml/min (Acute) Substernal precordial chest pain (Acute) SOB (shortness of breath) (Acute) Mitral regurgitation Calculus of proximal left ureter (Acute) Hydronephrosis due to obstruction of ureter (Acute) Vision loss of left eye (Chronic) Medical History Hypoxic Pneumonia due to COVID-19 virus Hyperglycemia Leukocytosis Chest pain Acute kidney injury superimposed on CKD Cervical pain (neck) Pulmonary nodules Dyspnea on exertion Orthopnea Osteoarthritis Nephrolithiasis Surgical History Hx of cystoscopy STENT INSERTION AND NOW HAS CHRONIC PAIN IN LEFT LEG SINCE SURGERY H/O eye surgery RETINA REPAIR IN BOTH EYES Family History Father Congestive heart failure Mother Cancer Social History Smoking Status: Never smoker Tobacco Type: Cigarettes Second Hand Exposure: No; Do You Dip or Chew Tobacco: No; Hx Alcohol Use: No Hx Substance Use: No Preferred Language: Bulgarian Communication Ability: Effective Visual Impairment: Partially Limited Associate Director Career Services Required: No Beliefs That Will Affect Care: None marital status: / Current Living Situation: Alone current occupational status: retired How many Children do You have: 3 Feels Safe at Home: Yes Safety Concerns: Feels Safe At This Time Diet: diabetic during the past year weight has: remained stable Assistive Devices: Oxygen - at Night and Walker Physical Exam Physical Exam: General: No acute distress, nondiaphoretic, well-developed, well-nourished. Cardiac: Regular rate and rhythm without murmurs gallops or rubs. Pulm: Diminished breath sounds at bases but otherwise clear auscultation bilaterally without wheezes, rales, rhonchi. No respiratory distress. 95% on 2 L NC. Abdominal: Soft, nontender, distended secondary to body habitus. Bowel sounds present. Neuro: A&O x3. No focal neurological deficits. Results & Data Results & Data Vital Signs (Past 12 Hours) Vital Signs Temp Pulse Pulse Resp BP BP Pulse Ox 09/17/24 14:04 66 09/17/24 13:30 58 L 17 136/70 95 09/17/24 11:30 137/74 09/17/24 11:27 56 L 20 96 09/17/24 11:00 56 L 18 96 09/17/24 10:35 89 L 09/17/24 10:30 59 L 17 91 09/17/24 10:09 72 09/17/24 09:53 66 09/17/24 09:45 68 16 92 09/17/24 09:23 98.4 F 67 18 134/77 94 O2 Del Method O2 Flow Rate 09/17/24 14:04 09/17/24 13:30 Nasal Cannula 2 09/17/24 11:30 09/17/24 11:27 Nasal Cannula 2 09/17/24 11:00 Nasal Cannula 2 09/17/24 10:35 Nasal Cannula 0 09/17/24 10:30 09/17/24 10:09 09/17/24 09:53 09/17/24 09:45 09/17/24 09:23 Room Air Laboratory Results Reviewed CBC Reviewed coags Reviewed chemistries Reviewed respiratory bio fire Diagnostic Findings Chest X-Ray 09/17/24 09:36 XR chest 1V portable CLINICAL HISTORY: Chest pain, nonspecific COMPARISON STUDY: 06/05/2024 FINDINGS: Stable mild cardiomegaly without pulmonary vascular congestion. No effusion, consolidation, or pneumothorax. IMPRESSION: No acute findings. ACT 112: Negative or not required by law. Electronically signed by: Dalton Naranjo M.D. 09/17/2024 9:59 AM Supervising Physician Co-Signing Physician Notes I personally saw and examined the patient. I independently reviewed the labs, EKG, imaging, problem list, medication list, past medical history and family history. I verified all philippe points and agree with Isabel Razo PA-C with the following exceptions and/or additions: 79 year old male with COPD who presents to the ER with shortness of breath. He is not on any maintenance inhalers at home. Significant improvement with nebulizers and steroids given in the ER. O/E HS RRR, no murmurs, Chest mild posterior expiratory wheeze, Abdo SNT A/P COPD exacerbation - Formoterol/budesonide nebs, azithromycin, duonebs, Solu- Medrol 40mg IV daily PG Care Time/CCT Total # of Minutes Spent Total Time Spent with Patient: Total time spent is greater than 50% in coordination of care (as documented) at patient's floor/unit and/or counseling patient: Coding Level of Care Code 50996 INT INP/OBS CARE 375MIN Diagnoses Acute exacerbation of chronic obstructive pulmonary disease (COPD) J44.1 Diabetes mellitus, type II E11.65 Diabetes mellitus complication status: with hyperglycemia Diabetes mellitus manager intermediate insulin use: unspecified manager intermediate insulin use status Hypertension I10 Hypertension type: unspecified CKD (chronic kidney disease) stage 3, GFR 30-59 ml/min N18.30 Chronic kidney disease stage 3 subtype: unspecified whether 3a or 3b Acute hypoxic respiratory failure J96.01 (2) Diabetes mellitus, type II Diabetes mellitus complication status: with hyperglycemia Diabetes mellitus detention insulin use: unspecified manager intermediate insulin use status Qualified Code(s): E11.65 - Type 2 diabetes mellitus with hyperglycemia (3) Hypertension Hypertension type: unspecified Qualified Code(s): I10 - Essential (primary) hypertension (4) CKD (chronic kidney disease) stage 3, GFR 30-59 ml/min Chronic kidney disease stage 3 subtype: unspecified whether 3a or 3b Qualified Code(s): N18.30 - Chronic kidney disease, stage 3 unspecified
[2024-09-17] MEDS ORDERED: PHARMACY GLYCEMIC MGMT CONSULT PRN (17:41)
[2024-09-17] MEDS ORDERED: traZODone HCL 50 MG TAB PO PRN (17:41)
[2024-09-17] MEDS ORDERED: ACETAMINOPHEN 325 MG TAB PO PRN (17:41)
[2024-09-17] MEDS ORDERED: ONDANSETRON INJ 2 MG/ML 2 ML VIAL IV PRN (17:41)
[2024-09-17] MEDS ORDERED: POLYETHYLENE (MIRALAX) 17 GM PACK PO PRN (17:41)
[2024-09-17] MEDS ORDERED: methylPREDNISolone 10 mg/mL (For Ped Dose < 7mg) IV SCH (17:41)
[2024-09-17] MEDS ORDERED: GLUCOSE 40% GEL 15 GM TUBE PO PRN (18:15)
[2024-09-17] MEDS ORDERED: DEXTROSE 50% 50 ML SYRINGE IV PRN (18:15)
[2024-09-17] MEDS ORDERED: GLUCAGON FOR INJ 1 MG VIAL SQ PRN (18:15)
[2024-09-17] MEDS ORDERED: CARBOHYDRATES FOR HYPOGLYCEMIA PO PRN (18:15)
[2024-09-17] MEDS ORDERED: GLUCOSE 10 TAB/TUBE PO PRN (18:15)
[2024-09-17] MEDS: FORMOTEROL 20 MCG/2 ML VIAL NEB SCH (18:50)
[2024-09-17] MEDS: BUDESONIDE 0.5 MG/2 ML VIAL (PULMICORT) NEB SCH (18:50)
[2024-09-17] MEDS: methylPREDNISolone 40 MG in SYRINGE 0 ML IV SCH (19:07)
[2024-09-17] MEDS: AZITHROMYCIN 250 MG TAB PO SCH (19:09)
[2024-09-17] MEDS: ASPIRIN 81 MG ECTAB PO SCH (19:09)
[2024-09-17] MEDS: lisinopril 10 MG TAB PO SCH (19:09)
[2024-09-17] MEDS: LANTUS PER UNIT CHARGE SQ ONE (19:10)
[2024-09-17] MEDS: INSULIN ASPART PER UNIT CHARGE SC SCH (19:11)
[2024-09-17] MEDS: PRAVASTATIN SOD 40 MG TAB PO SCH (20:36)
[2024-09-17] MEDS: amLODIPine BESYLATE 5 MG TAB PO SCH (20:36)
[2024-09-17] MEDS: guaiFENesin 600 MG TABCR PO SCH (20:37)
[2024-09-17] MEDS: METOPROLOL TARTRATE 25 MG TAB PO SCH (20:37)
[2024-09-17] MEDS: FLUTICASONE PROPIONATE NA SPR 16 GM BTL SCH (20:38)
[2024-09-17] MEDS: POTASSIUM CHLORIDE CRTAB 20 MEQ TABCR PO SCH (20:39)
--- NOTE | 2024-09-18 07:25 | Electrocardiogram Report ---
Test Reason : Blood Pressure : */* mmHG Vent. 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
[2024-09-18 07:35] LABS: Hematocrit (blood only) 47.6 % (42.0-52.0); Hemoglobin 16.7 g/dl (14.0-18.0); Mean Corpuscular Hemoglobin 31.3 pg (25.0-34.0); Mean Corpuscular Hgb Conc 35.1 g/dL (32.0-36.0); Mean Corpuscular Volume 89.1 fL (80.0-100.0); Mean Platelet Volume 9.7 fL (9.4-12.4); Platelet Count 255 K/uL (130-400); RDW Coefficient of Variation 14.5 % (11.5-14.5); RDW Standard Deviation 46.6 fL (36.4-46.3); Red Blood Count 5.34 M/uL (4.70-6.10); White Blood Count 10.56 K/ul (4.8-10.8)
[2024-09-18 08:03] LABS: Anion Gap 9 (3-11); BUN Creatinine Ratio 14.5 (10-20); Blood Urea Nitrogen 22 mg/dl (6-23); Calcium 9.5 mg/dl (8.6-10.3); Carbon Dioxide 20 mmol/L (21-32); Chloride 105 mmol/L (98-107); Glucose 243 mg/dl (70-99(Fasting)); Sodium 134 mmol/L (136-145)
[2024-09-18] MEDS: CHOLECALCIFEROL 25 MCG (1000 UNITS) TAB PO SCH (08:20)
[2024-09-18] MEDS: CYANOCOBALAMIN (B-12) 500 MCG TABLET PO SCH (08:20)
[2024-09-18] MEDS: LANTUS PER UNIT CHARGE SQ SCH (08:26)
--- NOTE | 2024-09-18 08:39 | Pharmacy Report ---
Pharmacy Glycemic Short Note 2 - Date of Service September 18, 2024 - Glycemic Short BSG Results (Last 24 hours): 09/17/24 09/17/24 09/17/24 09:38 16:39 20:15 Glucose 145 H POC Glucose 225 H 213 H 09/18/24 09/18/24 06:35 07:55 Glucose 243 H POC Glucose 210 H OUTPATIENT ANTIDIABETIC REGIMEN: * glipizide 10 mg PO BID * sitagliptin 50 mg PO daily HbA1c: 7.8% (06/06/24), repeat pending (09/18/24) ASSESSMENT: * AB is a 79 year old male admitted on 09/17/24 w/ acute COPD exacerbation * Receiving methylprednisolone 40 mg IV daily + azithromycin 500 mg PO daily * Pertinent PMH includes COPD, T2DM, stage 3 CKD, hypertension, and hyperlipidemia * Blood sugars elevated thus far, likely due to IV steroids * Will intensify glycemic regimen today PLAN FOR INPATIENT GLYCEMIC CONTROL: * Hold outpatient oral diabetes medications * Basal insulin * Lantus 35 units SQ daily w/ IV methylprednisolone * Additional 10 units of Lantus w/ lunch in light of blood sugar of 260 mg/dL * Bolus insulin * NovoLog per scale ACHS or Q6hrs while NPO * Goal Range: Low 110 mg/dL - High 140 mg/dL * Correction Factor: 15 mg/dL/unit * Nutritional / Prandial insulin per carb ratio of 1 unit per 5 grams CHO consumed
[2024-09-18 08:58] LABS: Estimated Average Glucose 163 mg/dl; Hemoglobin A1C 7.3 % (4.5-5.6)
[2024-09-18] MEDS ORDERED: LANTUS PER UNIT CHARGE SQ SCH ×2 (09:00)
[2024-09-18] MEDS: LANTUS PER UNIT CHARGE SQ ONE (12:35)
--- NOTE | 2024-09-18 17:01 | Hospitalist Progress Note ---
Date of Service September 18, 2024 Assessment & Plan (1) Acute exacerbation of chronic obstructive pulmonary disease (COPD): Plan: 71-year-old male with past medical history of T2DM, hyperlipidemia, HTN, 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 He presents with cough, sore throat, postnasal drip, sinus pressure, and dyspnea with exertion x 2 days. He was mildly hypoxic on presentation, currently 95% on 2 L NC. He reports these exacerbations occur approximately twice a year. He did just have recent PFTs in August 2024, and per review of report "the results of DLCO testing are questionable due to the patient's inability to perform the maneuvers according t o the ATS standards." Patient typically wears 2 L O2 via NC HS at home; does not typically need supplemental O2 during the day at home. CXR without acute findings Leukocytosis of 16 on admission. Now WNL at 10.56. Positive coronavirus NL63 on presentation Supplemental oxygen as needed to mean SpO2 89-92% Solu-Medrol 40 mg IV once daily Azithromycin 500 mg p.o. daily x 3 days Formoterol neb BID Budesonide neb BID Guaifenesin 1200 mg p.o. BID Fluticasone nasal spray BID (2) Diabetes mellitus, type II: Plan: hgb A1c 09/18 - 7.3% -Takes glipizide, alogliptin at home - hold while inpatient -pharmacy aiding in patient's glycemic management (3) Hypertension: Plan: Chronic, stable -Continue amlodipine, metoprolol, lisinopril, and aspirin -Most recent BP 136/70 (4) CKD (chronic kidney disease) stage 3, GFR 30-59 ml/min: Plan: Baseline creatine ~1.6 Cr=1.67 on admission now at 1.52 Encourage oral fluid intake Monitor with a.m. BMP Plan VTE PPx: SCDs CODE STATUS: DNR/DNI Anticipate discharge 09/19 Admission and Anticipated Discharge Date Admission Date: September 17, 2024 Subjective Patient seen and examined this morning. Patient reports to be feeling better today. He reports he has chronic SOB and is told to wear oxygen at home continuously but only will wear it at night time. Reports a cough but stated it has improved. Physical Exam Constitutional: WD/WN, vitals as above Eyes: PERRL, conjunctivae normal, anicteric sclerae Respiratory: normal respiratory effort, lungs clear to auscultation Cardiovascular: RRR, no murmur, no edema Psychiatric: A+Ox3, euthymic affect Results & Data Results & Data Vital Signs (Past 12 Hours) Vital Signs Temp Pulse Resp BP Pulse Ox O2 Del Method 09/18/24 14:29 36.6 C 76 16 139/70 93 Room Air 09/18/24 07:30 Room Air 09/18/24 07:27 36.4 C L 79 18 150/70 H 93 Room Air 09/18/24 06:52 87 18 92 Room Air PG Care Time/CCT Total # of Minutes Spent Total Time Spent with Patient: Total time spent is greater than 50% in coordination of care (as documented) at patient's floor/unit and/or counseling patient: Coding Level of Care Code 48924 SUB INP/OBS CARE 2/35MIN Diagnoses Acute exacerbation of chronic obstructive pulmonary disease (COPD) J44.1 Diabetes mellitus, type II E11.65 Diabetes mellitus complication status: with hyperglycemia Diabetes mellitus senior living insulin use: unspecified senior living insulin use status Hypertension I10 Hypertension type: unspecified CKD (chronic kidney disease) stage 3, GFR 30-59 ml/min N18.30 Chronic kidney disease stage 3 subtype: unspecified whether 3a or 3b (2) Diabetes mellitus, type II Diabetes mellitus complication status: with hyperglycemia Diabetes mellitus 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
[2024-09-19 07:55] LABS: Hematocrit (blood only) 44.4 % (42.0-52.0); Hemoglobin 15.7 g/dl (14.0-18.0); Mean Corpuscular Hemoglobin 31.7 pg (25.0-34.0); Mean Corpuscular Hgb Conc 35.4 g/dL (32.0-36.0); Mean Corpuscular Volume 89.5 fL (80.0-100.0); Mean Platelet Volume 9.7 fL (9.4-12.4); Nucleated RBC # (auto) 0.02 K/uL (0.00-0.12); Nucleated RBC % (auto) 0.1 %; Platelet Count 290 K/uL (130-400); RDW Coefficient of Variation 14.7 % (11.5-14.5); RDW Standard Deviation 47.5 fL (36.4-46.3); Red Blood Count 4.96 M/uL (4.70-6.10); White Blood Count 18.76 K/ul (4.8-10.8)
[2024-09-19 08:27] LABS: BUN Creatinine Ratio 21.3 (10-20); Calcium 9.1 mg/dl (8.6-10.3); Potassium 4.4 mmol/L (3.5-5.1)
[2024-09-19] MEDS: LANTUS PER UNIT CHARGE SQ SCH ×2 (08:44→21:15)
[2024-09-19] MEDS: SODIUM CHLORIDE 0.9% 500 ML IV SCH (09:23)
--- NOTE | 2024-09-19 09:52 | Pharmacy Report ---
Pharmacy Glycemic Short Note 2 - Date of Service September 19, 2024 - Glycemic Short BSG Results (Last 24 hours): 09/18/24 09/18/24 09/18/24 11:01 16:53 20:46 Glucose POC Glucose 260 H 170 H 215 H 09/19/24 09/19/24 07:27 07:50 Glucose 258 H POC Glucose 225 H OUTPATIENT ANTIDIABETIC REGIMEN: * glipizide 10 mg PO BID * sitagliptin 50 mg PO daily HbA1c: 7.3% (09/18/24) ASSESSMENT: 09/19/24: * Blood sugars elevated yesterday, ranging 170-260 mg/dL * Received 92 units of insulin (~50/50 basal/bolus split) * Remains on methylprednisolone 40 mg IV daily * Will intensify insulin regimen today 09/18/24: * AB is a 79 year old male admitted on 09/17/24 w/ acute COPD exacerbation * Receiving methylprednisolone 40 mg IV daily + azithromycin 500 mg PO daily * Pertinent PMH includes COPD, T2DM, stage 3 CKD, hypertension, and hyperlipidemia * Blood sugars elevated thus far, likely due to IV steroids * Will intensify glycemic regimen today PLAN FOR INPATIENT GLYCEMIC CONTROL: * Hold outpatient oral diabetes medications * Basal insulin * Lantus 45 units SC daily w/ IV methylprednisolone * Lantus scale HS (0-10-15 units) - see EHR for details * Bolus insulin * NovoLog per scale ACHS or Q6hrs while NPO * Goal Range: Low 110 mg/dL - High 140 mg/dL * Correction Factor: 15 mg/dL/unit * Nutritional / Prandial insulin per carb ratio of 1 unit per 4 grams CHO consumed
[2024-09-19 15:26] LABS: BUN Creatinine Ratio 20.5 (10-20); Calcium 9.3 mg/dl (8.6-10.3); Potassium 4.9 mmol/L (3.5-5.1)
--- NOTE | 2024-09-19 17:18 | Hospitalist Progress Note ---
Date of Service September 19, 2024 Assessment & Plan (1) Acute exacerbation of chronic obstructive pulmonary disease (COPD): Plan: 71-year-old male with past medical history of T2DM, hyperlipidemia, HTN, 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 He presents with cough, sore throat, postnasal drip, sinus pressure, and dyspnea with exertion x 2 days. He was mildly hypoxic on presentation, currently 95% on 2 L NC. He reports these exacerbations occur approximately twice a year. He did just have recent PFTs in August 2024, and per review of report "the results of DLCO testing are questionable due to the patient's inability to perform the maneuvers according to the ATS standards." Patient typically wears 2 L O2 via NC HS at home; does not typically need supplemental O2 during the day at home. CXR without acute findings CBC w/ leukocytosis of 18.76 - will continue to monitor, patient w/ hx of leukocytosis. Positive coronavirus NL63 on presentation Supplemental oxygen as needed to mean SpO2 89-92% Solu-Medrol 40 mg IV once daily Azithromycin 500 mg p.o. daily x 3 days Formoterol neb BID Budesonide neb BID Guaifenesin 1200 mg p.o. BID Fluticasone nasal spray BID (2) CKD (chronic kidney disease) stage 3, GFR 30-59 ml/min: Plan: Baseline creatine ~1.6 Cr=1.67 on admission, worsened to 2.00 after 500cc NSS. Encourage oral fluid intake - check bladder scan to be sure patient is not retaining urine. urinalysis ordered. - hold Lisinopril in setting of GEOVANNI. Monitor with a.m. BMP (3) Diabetes mellitus, type II: Plan: hgb A1c 1/9 - 7.3% -Takes glipizide, alogliptin at home - hold while inpatient -pharmacy aiding in patient's glycemic management (4) Hypertension: Plan: Chronic, stable -Continue amlodipine, metoprolol, and aspirin - lisinopril on hold due to GEOVANNI Plan VTE PPx: SCDs CODE STATUS: DNR/DNI Admission and Anticipated Discharge Date Admission Date: September 17, 2024 Subjective Patient seen and examined this morning. Patient reports increasing coughing after his nebulizer this morning. Aside from this he reports his SOB/cough are stable. He feels improved since admission date. Physical Exam Constitutional: WD/WN, vitals as above Respiratory: normal respiratory effort, lungs clear to auscultation Cardiovascular: RRR, no murmur, no edema Psychiatric: A+Ox3, euthymic affect Results & Data Results & Data Vital Signs (Past 12 Hours) Vital Signs Temp Pulse Resp BP Pulse Ox O2 Del Method FiO2 09/19/24 14:36 36.7 C 65 16 133/67 93 Room Air 09/19/24 08:30 Room Air 09/19/24 07:37 66 17 92 Room Air 21 09/19/24 07:12 36.6 C 65 16 136/78 92 Room Air PG Care Time/CCT Total # of Minutes Spent Total Time Spent with Patient: Total time spent is greater than 50% in coordination of care (as documented) at patient's floor/unit and/or counseling patient: Coding Level of Care Code 54905 SUB INP/OBS CARE 2/35MIN Diagnoses Acute exacerbation of chronic obstructive pulmonary disease (COPD) J44.1 CKD (chronic kidney disease) stage 3, GFR 30-59 ml/min N18.30 Chronic kidney disease stage 3 subtype: unspecified whether 3a or 3b Diabetes mellitus, type II E11.65 Diabetes mellitus complication status: with hyperglycemia Diabetes mellitus manager long term care insulin use: unspecified penitentiary insulin use status Hypertension I10 Hypertension type: unspecified (2) CKD (chronic kidney disease) stage 3, GFR 30-59 ml/min Chronic kidney disease stage 3 subtype: unspecified whether 3a or 3b Qualified Code(s): N18.30 - Chronic kidney disease, stage 3 unspecified (3) Diabetes mellitus, type II Diabetes mellitus complication status: with hyperglycemia Diabetes mellitus penitentiary insulin use: unspecified penitentiary insulin use status Qualified Code(s): E11.65 - Type 2 diabetes mellitus with hyperglycemia (4) Hypertension Hypertension type: unspecified Qualified Code(s): I10 - Essential (primary) hypertension
[2024-09-19 18:05] LABS: Appearance Urine Clear (Clear); Bacteria Urine Automated None Seen (None Seen); Bilirubin Urine Negative (Negative); Blood Urine Negative (Negative); Color Urine Yellow; Epithelial Cell Urine Auto 0-2 /hpf (0-2); Glucose Urine UA 3+ (Negative); Ketones Urine Negative (Negative); Leukocyte Esterase Urine Negative (Negative); Nitrite Urine Negative (Negative); Protein Urine 1+ (Negative); RBC Urine Automated 0-2 /hpf (0-2); Specific Gravity Urine 1.017 (1.000-1.030); Sperm Urine Present (None Prsent); Urobilinogen Urine Negative (Negative); WBC Urine Automated 0-5 /hpf (0-5)
[2024-09-20 07:35] LABS: Basophils # (auto) 0.07 K/uL (0.00-0.20); Basophils % (auto) 0.4 %; Hematocrit (blood only) 44.3 % (42.0-52.0); Hemoglobin 15.4 g/dl (14.0-18.0); Immature Granulocytes # (auto) 0.29 K/uL (0.01-0.20); Immature Granulocytes % (auto) 1.5 %; Lymphocytes % (auto) 20.1 %; Mean Corpuscular Hemoglobin 31.4 pg (25.0-34.0); Mean Corpuscular Hgb Conc 34.8 g/dL (32.0-36.0); Mean Corpuscular Volume 90.2 fL (80.0-100.0); Mean Platelet Volume 9.7 fL (9.4-12.4); Monocytes # (auto) 1.45 K/uL (0.11-0.59); Monocytes % (auto) 7.5 %; Neutrophils # (auto) 13.72 K/uL (1.40-6.50); Neutrophils % (auto) 70.5 %; Platelet Count 282 K/uL (130-400); RDW Coefficient of Variation 14.5 % (11.5-14.5); RDW Standard Deviation 47.9 fL (36.4-46.3); Red Blood Count 4.91 M/uL (4.70-6.10); White Blood Count 19.43 K/ul (4.8-10.8)
[2024-09-20 08:08] LABS: BUN Creatinine Ratio 25.8 (10-20); Calcium 8.7 mg/dl (8.6-10.3); Creatinine Clr Calc Pharmacy 39.2 ml/min; Potassium 4.3 mmol/L (3.5-5.1)
[2024-09-20 08:27] VITALS: BP 131/72; PULSE 62; RESP 18; TEMP 97.9; O2SAT 95
[2024-09-20] MEDS: LANTUS PER UNIT CHARGE SQ SCH (08:36)
--- NOTE | 2024-09-20 09:54 | Discharge Summary ---
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 He presents with cough, sore throat, postnasal drip, sinus pressure, and dyspnea with exertion x 2 days. He was mildly hypoxic on presentation, currently 95% on 2 L NC. He reports these exacerbations occur approximately twice a year. He did just have recent PFTs in August 2024, and per review of report "the results of DLCO testing are questionable due to the patient's inability to perform the maneuvers according to the ATS standards." Patient typically wears 2 L O2 via NC HS at home; does not typically need supplemental O2 during the day at home. CXR without acute findings CBC w/ leukocytosis of 19.43- patient w/ hx of leukocytosis and rise secondary to steroid use. Consider workup outpatient for underlying cause of leukocytosis if not already performed. Positive coronavirus NL63 on presentation Supplemental oxygen as needed to mean SpO2 89-92% discharged on prednisone taper s/p Azithromycin 500 mg p.o. daily x 3 days resume home inhalers upon discharge. (2) CKD (chronic kidney disease) stage 3, GFR 30-59 ml/min: Baseline creatine ~1.6 Cr=1.67 on admission, 1.62 on day of discharge. Encourage oral fluid intake - held Lisinopril on d/c - patient w/ hx of GEOVANNI during hospitalizations. Follow up with PCP to discuss need for lisinopril given hx of GEOVANNI during hospitalizations. - patient to monitor BP at home. (3) Diabetes mellitus, type II: hgb A1c 09/18 - 7.3% -resume home diabetic medications (4) Hypertension: Chronic, stable -Continue amlodipine, metoprolol, and aspirin - lisinopril on held due to GEOVANNI Plan Patient discharged home 09/20. Admission HPI Per Admitting Provider Mr. 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 He presents with cough, sore throat, postnasal drip, sinus pressure, and dyspnea with exertion x 2 days. He notes that his cough is productive with clear sputum. He was found to be mildly hypoxic at 89% on room air on presentation. He does not wear supplemental O2 during the day at baseline. He does wear 2 L via NC at bedtime at home. He denies recent fever, chills, headache, rhinorrhea, earache. He had just finished a breathing treatment prior to my evaluation. He denies any shortness of breath or wheezing at this time. He reports he has "these episodes" usually twice a year. He reports smoking history of 1 ppd when in the , but no tobacco use x 60 years now. He had PFTs done in August 2024; reviewed posttest, states results are questionable due to the patient's inability to perform the maneuvers according to ATS standards. Reviewed CODE STATUS and patient expresses his wishes of DNR/DNI. Discharge Exam Constitutional WD/WN, vitals as above Eyes PERRL, conjunctivae normal, anicteric sclerae Respiratory normal respiratory effort, lungs clear to auscultation Cardiovascular RRR, no murmur, no edema Psychiatric A+Ox3, euthymic affect Discharge Plan Discharge Items Patient Disposition: Home - Self-Care Reason For Visit: COPD EXACERBATION Discharge Diagnosis: COPD Exacerbation, Coronavirus NL63 Activity: Resume your previous activity Non-emergency contact: Primary Care Provider Call non-emergency contact if: you have any medication questions and your symptoms worsen Follow-up/Referrals: Juanita Carlson PA-C [Primary Care Provider] - Diet: Carb Consistent or DM2 Addtl Attending Provider Instructions: Mr. Uriarte, You were recently hospitalized for shortness of breath. You were found to be in a COPD exacerbation and tested positive for a viral illness. Please see recommendations below regarding your discharge. 1. Please take the prednisone taper as directed. Your first dose of steroids at home will be on 09/21. Please do not take the dexamethasone while on the predniso ne taper. Discuss this medication further with your PCP. 2. Please hold your Lisinopril until seen by your PCP. - Consider a different blood pressure medication given your chronic kidney disease and recurrent acute kidney injuries during hospitalizations. 3.The remainder of your medications may be resumed. 4. Please follow up with your PCP within 1-2 weeks of discharge. If you develop any worsening shortness of breath, cough, fever, or chills please report back to the ER for further care. Sincerely, Kylah Cortez PA-C Pending Studies at Discharge: No Stand-Alone Forms: My [facility], Smoking Cessation Medications and DC Order Prescriptions: New prednisone 10 mg tablet 10 mg PO DIRECTED Qty: 22 0RF Rx Instructions: please take 4 tablet by mouth for 1 day followed by 3 tablets by mouth for 3 days followed by 2 tablets by mouth for 3 days followed by 1 tablet by mouth for 3 days. Continued cetirizine 10 mg tablet 10 mg PO DAILY aspirin 81 mg tablet,delayed release (DR/EC) 81 mg PO DAILY cholecalciferol (vitamin D3) 2,000 unit Capsule 2,000 unit PO QAM pravastatin 40 mg Tablet 40 mg PO HS potassium chloride 20 mEq Tablet Extended Release 20 meq PO BID cyanocobalamin (vitamin B-12) [Vitamin B-12] 500 mcg Tablet 500 mcg PO Q OTHER DAY trazodone 50 mg Tablet 50 mg PO HS PRN (Reason: Sleep) glipizide 10 mg Tablet 10 mg PO BID acetaminophen [Tylenol Ex Str Rapid Release] 500 mg Tablet 500 mg PO Q6H PRN (Reason: Pain) metoprolol tartrate 50 mg Tablet 25 mg PO BID fluticasone propionate 50 mcg/actuation spray,suspension 2 spray INTRANASAL BID sitagliptin 50 mg Tablet 50 mg PO DAILY amlodipine 5 mg tablet 5 mg PO BID Held lisinopril 10 mg Tablet 10 mg PO DAILY Hold Instructions: Resume on 09/27/24. until seen by PCP dexamethasone 0.5 mg Tablet 0 mg PO DAILY Hold Instructions: Resume on 09/27/24. until seen by PCP. You will be on prednisone taper in the meantime Rx Instructions: On list from [facility] as outside med. No verification on last fill date. Original Directions: 1mg by mouth daily Discharge Orders: Discharge Order (Routine); Ordered 09/20/24 Ordered By: Kylah Glasgow/Other Patient Handouts: Managing Type 2 Diabetes Admission Data Admit Date/Time: 09/17/24 14:44 Attending Provider: Dereck Stevens Admit Provider: Nick Gomez Primary Care Provider: Juanita Carlson Other Providers: Nick Gomez; [facility],Hospital Hospital Stay Data Consultations 09/17/24 12:45 ED Decision to Admit Stat Pending Results Patient Have Any Pending Studies at Discharge: No Discharge Instructions Given to Patient (Per Discharging Provider) Mr. Uriarte, You were recently hospitalized for shortness of breath. You were found to be in a COPD exacerbation and tested positive for a viral illness. Please see recommendations below regarding your discharge. 1. Please take the prednisone taper as directed. Your first dose of steroids at home will be on 09/21. Please do not take the dexamethasone while on the prednisone taper. Discuss this medication further with your PCP. 2. Please hold your Lisinopril until seen by your PCP. - Consider a different blood pressure medication given your chronic kidney disease and recurrent acute kidney injuries during hospitalizations. 3.The remainder of your medications may be resumed. 4. Please follow up with your PCP within 1-2 weeks of discharge. If you develop any worsening shortness of breath, cough, fever, or chills please report back to the ER for further care. 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
--- NOTE | 2024-09-23 08:17 | Coding Query ---
To promote full compliance with coding requirements relating to patient care, provider participation is requested in all cases of leather skinner uncertainty. Please assist us with the question(s) below: Coding Question(s): The diagnosis below was documented in the H&P, then subsequently fell off all further documentation. Please indicate if it is still a possible diagnosis or ruled out. Physician's Response(s): ACUTE HYPOXIC RESPIRATORY FAILURE ( x ) Diagnosed and POA ( ) Diagnosed and not POA ( ) Ruled out ( ) Other (please specify) MTDD
== END 2024-09-20 12:35 | disposition home or self-care (01) | DRG 190 ==
LOC: ED 09:14 → SUATTDRO 14:44 → 3N 14:44

== ENCOUNTER 2024-10-08 15:32 | Inpatient (IN) ==
--- NOTE | 2024-10-08 15:40 | ED Triage Note ---
Date of Service October 08, 2024 Provider in Triage Author: Mark Sears History of Present Illness This patient was briefly evaluated while in triage. An abbreviated physical exam was performed. This patient is a 79-year-old Male who presents to the ED for evaluation recent admission for "COPD exacerbation" 09/17-09/20, ED visit 09/29 cough, shortness of breath, difficulty breathing [facility] has oxygen that he wears at night, but has been putting it on during the day when is sats are low Physical Exam GENERAL: NAD, sats 88%-92% on RA CARDIOVASCULAR: RRR RESPIRATORY: BS diminished, no wheezes, rhonchi ABDOMEN: BS x 4. Nontender to palpation. Initial orders for labs and / or imaging were placed and patient was placed in the waiting area until a bed is available. Please see further documentation for the full ED course.
[2024-10-08 16:43] LABS: Basophils # (auto) 0.06 K/uL (0.00-0.20); Basophils % (auto) 0.5 %; Eosinophils # (auto) 0.57 K/uL (0.00-0.50); Eosinophils % (auto) 4.7 %; Immature Granulocytes # (auto) 0.05 K/uL (0.01-0.20); Immature Granulocytes % (auto) 0.4 %; Lymphocytes # (auto) 2.79 K/uL (1.20-3.40); Lymphocytes % (auto) 23.1 %; Mean Corpuscular Hemoglobin 31.5 pg (25.0-34.0); Mean Corpuscular Hgb Conc 34.8 g/dL (32.0-36.0); Mean Corpuscular Volume 90.6 fL (80.0-100.0); Mean Platelet Volume 9.6 fL (9.4-12.4); Monocytes # (auto) 0.85 K/uL (0.11-0.59); Neutrophils # (auto) 7.78 K/uL (1.40-6.50); Neutrophils % (auto) 64.3 %; Platelet Count 182 K/uL (130-400); RDW Coefficient of Variation 15.3 % (11.5-14.5); RDW Standard Deviation 50.7 fL (36.4-46.3); Red Blood Count 5.08 M/uL (4.70-6.10)
[2024-10-08 16:56] LABS: Albumin Globulin Ratio 1.1 (0.9-2); Albumin Level 3.9 gm/dl (3.4-5.0); BUN Creatinine Ratio 10.9 (10-20); Bilirubin,Total 0.7 mg/dl (0.2-1.0); Calcium 9.5 mg/dl (8.6-10.3); Creatinine Clr Calc Pharmacy 41.7 ml/min; Globulin 3.4 gm/dl (2.5-4.0); Potassium 3.9 mmol/L (3.5-5.1); Total Protein 7.3 gm/dl (6.0-8.3)
[2024-10-08 17:02] LABS: Troponin I High Sensitivity 8.1 pg/ml (0-20)
[2024-10-08 17:33] LABS: Adenovirus PCR Not Detected (NotDetected); Bordetella parapertussis PCR Not Detected (NotDetected); Bordetella pertussis PCR Not Detected (NotDetected); Chlamydia pneumoniae PCR Not Detected (NotDetected); Coronavirus 229E PCR Not Detected (NotDetected); Coronavirus CoV-2 (COVID19)PCR Not Detected (NotDetected); Coronavirus HKU1 PCR Not Detected (NotDetected); Coronavirus NL63 PCR Not Detected (NotDetected); Coronavirus OC43PCR Not Detected (NotDetected); Human Metapneumovirus PCR Not Detected (NotDetected); Influenza A PCR Not Detected (NotDetected); Influenza B PCR Not Detected (NotDetected); Mycoplasma pneumoniae PCR Not Detected (NotDetected); Parainfluenza Virus 1 PCR Not Detected (NotDetected); Parainfluenza Virus 2 PCR Not Detected (NotDetected); Parainfluenza Virus 3 PCR Not Detected (NotDetected); Parainfluenza Virus 4 PCR Not Detected (NotDetected); Respiratory Syncytial VirusPCR Not Detected (NotDetected); Rhinovirus/Enterovirus PCR Not Detected (NotDetected)
--- NOTE | 2024-10-08 18:18 | XRay Report ---
EXAM: Radiograph of the Abdomen 1 View INDICATION: Chest pain. TECHNIQUE: Frontal supine view of the abdomen/pelvis. COMPARISON: 09/17/2024 FINDINGS: Limitations: None. Lower thorax: Stable interstitial scarring. Lungs and pleural spaces: No consolidation or pulmonary edema. No pleural effusion or pneumothorax. Gastrointestinal tract: Air scattered throughout non-dilated intestinal loops. Organs: Visualized organ shadows appear grossly normal. Bones/joints: No fracture, erosion or dislocation. Soft tissues: No abnormality noted. No radiopaque foreign body noted. IMPRESSION: Stable chronic changes. No acute disease. ACT 112: Negative or not required by law. Electronically signed by Judy Morris 10-08-2024 6:17 PM
--- NOTE | 2024-10-08 18:30 | Emergency Department Note ---
Impression & Plan SOB (shortness of breath), Hypoxia, COPD (chronic obstructive pulmonary disease) ED Provider Note NAME: AMI ALONSO AGE: 79 SEX: M : 1945 ARRIVES VIA: Walk-In INFORMANT: Patient, ED PROVIDER(S): Nigel Fried DO CHIEF COMPLAINT: Difficulty breathing HPI: The patient is a 79-year-old male who presented to the emergency department for an evaluation of shortness of breath. The patient's been having problems with shortness of breath of the last several weeks. He was in our facility 9 days ago with similar complaints. The patient denies difficulty breathing with exertion. He denies having any fever. He has had a dry cough but at times it sometimes is productive. He wears oxygen at night but not during the day. He had a follow-up appointment with the ID clinic and was sent directly to the emergency department because of difficulty breathing and hypoxia. ROS: See above HPI for pertinent positives & negatives. A total of 10 systems reviewed and were otherwise negative. PAST MEDICAL HISTORY: See Below PAST SURGICAL HISTORY: See Below FAMILY HISTORY: See Below SOCIAL HISTORY: See Below HOME MEDICATIONS: See Below ALLERGIES: See Below VITALS: See Below PHYSICAL EXAMINATION: GENERAL: Patient is awake alert in no acute distress patient is resting comfortably and showing no signs of anxiety EYES: The conjunctivae are clear. The pupils are round and reactive. EARS, NOSE, MOUTH AND THROAT: The nose is without any evidence of any deformity. NECK: The neck is nontender and supple. RESPIRATORY: Diminished breath sounds are noted throughout but there is no retractions or tachypnea. CARDIOVASCULAR: Regular rate and rhythm noted there no murmurs rubs or gallops normal S1 normal S2. GASTROINTESTINAL: The abdomen is soft. Abdomen is nontender. MUSCULOSKELETAL/EXTREMITIES: There is no evidence of gross deformity full range of motion is noted in the hips and shoulders. SKIN: There is no obvious evidence of any rash. There are no petechiae, pallor or cyanosis noted. NEUROLOGIC: Patient is awake alert and oriented x3 MEDICAL DECISION MAKING: The patient is a 79-year-old male who presented to the emergency department for shortness of breath. He has a history of COPD. He wears oxygen at home at night. He has been seen in our facility multiple times recently for similar complaints. On his most recent visit no definite cause for shortness of breath was found. He did schedule a follow-up appointment. He was seen today but was sent to our emergency department because of hypoxia. The patient states he has shortness of breath with exertion. Lung sounds were not abnormal. I would wonder if this represents some other underlying cause for his shortness of breath with exertion. Is possible this could represent a cardiac cause. Ultimately the patient was felt to be a good candidate for inpatient management given his reported outpatient hypoxia. I discussed his condition with the on- call [facility] group. They have agreed to evaluate the patient in the emergency department for further management and disposition. Triage Nursing notes reviewed. Prior medical records reviewed Vital Signs: reviewed and remarkable for elevated blood pressure. Differential diagnosis: Reactive airway disease, pneumonia, pneumothorax, COPD, CHF, infections, cardiac ischemia, pulmonary embolism, musculoskeletal, gastrointestinal, as well as other pathologies. ER treatment provided: See below Diagnostics interpreted by me: ECG: EKG was obtained in the emergency department. My interpretation is sinus rhythm at 72 bpm. Right bundle branch block pattern was noted. This was compared to a tracing from October 04, 2024. No changes were noted. Cardiac Monitoring: An order was placed for continuous cardiac monitoring. The monitor shows a rate of 78 bpm with sinus rhythm. Laboratory studies: As stated above and show below. Imaging studies: See below. Radiographic imaging was reviewed by myself Consultation(s): I discussed this case with Dr. Chavez who is on-call for the [facility] hospitalist group. 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 (Acute) COVID Left breast mass (Acute) Hypertension (Acute) Acute hypoxic respiratory failure Hyperlipidemia Diabetes mellitus, type II (Acute) CKD (chronic kidney disease) stage 3, GFR 30-59 ml/min (Acute) Substernal precordial chest pain (Acute) SOB (shortness of breath) (Acute) Mitral regurgitation Calculus of proximal left ureter (Acute) Hydronephrosis due to obstruction of ureter (Acute) Vision loss of left eye (Chronic) Medical History Hypoxic Pneumonia due to COVID-19 virus Hyperglycemia Leukocytosis Chest pain Acute kidney injury superimposed on CKD Cervical pain (neck) Pulmonary nodules Dyspnea on exertion Orthopnea Osteoarthritis Nephrolithiasis Surgical History Hx of cystoscopy STENT INSERTION AND NOW HAS CHRONIC PAIN IN LEFT LEG SINCE SURGERY H/O eye surgery RETINA REPAIR IN BOTH EYES Family History Father Congestive heart failure Mother Cancer Social History Smoking Status: Never smoker Tobacco Type: Cigarettes Second Hand Exposure: No; Do You Dip or Chew Tobacco: No; Hx Alcohol Use: No Hx Substance Use: No Preferred Language: Thai Communication Ability: Effective Visual Impairment: Partially Limited Clinical Quality Rn Required: No Beliefs That Will Affect Care: None marital status: / Current Living Situation: Alone current occupational status: retired How many Children do You have: 3 Feels Safe at Home: Yes Diet: diabetic during the past year weight has: remained stable Assistive Devices: Oxygen - at Night and Walker Allergies Allergies Allergy/AdvReac Type Severity Reaction Status Date / Time Influenza Virus Vaccines Allergy Severe Shortness Verified 10/01/24 09:37 of breath ipratropium [From Combivent] Allergy Unknown On med Unverified 10/01/24 09:37 list from [facility] atorvastatin AdvReac Intermediate Cramping Verified 10/01/24 09:37 of the Muscles simvastatin AdvReac Intermediate Cramping Verified 10/01/24 09:37 of the Muscles Unknown antibiotic AdvReac visual Uncoded 10/01/24 09:37 disturbance/diarrhea Home Meds Home Medications Medication Instructions Recorded Confirmed cholecalciferol (vitamin D3) 50 2,000 unit PO QAM 09/20/18 10/08/24 mcg (2,000 unit) capsule pravastatin 40 mg tablet 40 mg PO HS 09/20/18 10/08/24 potassium chloride 20 mEq 20 meq PO BID 05/19/21 10/08/24 tablet,extended release aspirin 81 mg tablet,delayed 81 mg PO DAILY 06/20/21 10/08/24 release cetirizine 10 mg tablet 10 mg PO DAILY 06/20/21 10/08/24 cyanocobalamin (vitamin B-12) 500 500 mcg PO Q OTHER DAY 03/28/22 10/08/24 mcg tablet (Vitamin B-12) acetaminophen 500 mg tablet 500 mg PO Q6H PRN Pain 09/17/24 10/08/24 amlodipine 5 mg tablet 5 mg PO BID 09/17/24 10/08/24 dexamethasone 0.5 mg tablet 0 mg PO DAILY 09/17/24 10/08/24 fluticasone propionate 50 2 spray intranasal BID 09/17/24 10/08/24 mcg/actuation nasal spray,suspension glipizide 10 mg tablet 10 mg PO BID 09/17/24 10/08/24 lisinopril 10 mg tablet 10 mg PO DAILY 09/17/24 10/08/24 metoprolol tartrate 50 mg tablet 25 mg PO BID 09/17/24 10/08/24 sitagliptin 50 mg tablet 50 mg PO DAILY 09/17/24 10/08/24 trazodone 50 mg tablet 50 mg PO HS PRN Sleep 09/17/24 10/08/24 Previous Rx's Medication Instructions Recorded prednisone 10 mg tablet 10 mg PO DIRECTED #22 tabs 09/20/24 dapagliflozin propanediol 10 mg 10 mg PO DAILY #90 tabs 10/01/24 tablet (Farga) Results & Data (ED) Vital Signs Vital Signs - 24 hr 10/08/24 15:39 10/08/24 16:42 10/08/24 16:48 Temperature 37 C Temperature Source Skin Pulse Rate 81 68 Pulse Rate [Right Finger] 62 Respiratory Rate 20 19 Respiratory Effort / Characteristics Non-Labored Spontaneous Respiratory Depth Normal Blood Pressure 141/73 H Blood Pressure [Right Arm] 152/75 H Blood Pressure Mean 95 Blood Pressure Mean [Right Arm] 100 Blood Pressure Position Sitting Pulse Oximetry 93 96 Oxygen Delivery Method Room Air Nasal Cannula Oxygen Flow Rate 2 Sepsis Recent Fever Within 48 Hours No Sepsis New/Unexplained Change in Mental Status N/A Sepsis Action Taken by Nursing No Action Required 10/08/24 17:17 10/08/24 18:49 10/08/24 20:54 Temperature Temperature Source Pulse Rate 75 Pulse Rate [Right Finger] 69 62 Respiratory Rate 16 19 Respiratory Effort / Characteristics Respiratory Depth Blood Pressure Blood Pressure [Right Arm] 141/82 H 146/79 H Blood Pressure Mean Blood Pressure Mean [Right Arm] 101 101 Blood Pressure Position Pulse Oximetry 94 95 Oxygen Delivery Method Nasal Cannula Nasal Cannula Oxygen Flow Rate 2 2 Sepsis Recent Fever Within 48 Hours Sepsis New/Unexplained Change in Mental Status Sepsis Action Taken by Nursing 10/08/24 20:56 10/08/24 21:15 10/08/24 22:34 Temperature Temperature Source Pulse Rate Pulse Rate [Right Finger] 74 76 Respiratory Rate 22 20 Respiratory Effort / Characteristics Respiratory Depth Blood Pressure Blood Pressure [Right Arm] 146/71 H Blood Pressure Mean Blood Pressure Mean [Right Arm] 96 Blood Pressure Position Pulse Oximetry 95 95 94 Oxygen Delivery Method Nasal Cannula Nasal Cannula Nasal Cannula Oxygen Flow Rate 2 2 2 Sepsis Recent Fever Within 48 Hours Sepsis New/Unexplained Change in Mental Status Sepsis Action Taken by Nursing 10/08/24 22:35 10/08/24 22:56 Temperature Temperature Source Pulse Rate Pulse Rate [Right Finger] 78 Respiratory Rate 24 Respiratory Effort / Characteristics Respiratory Depth Blood Pressure Blood Pressure [Right Arm] 163/84 H Blood Pressure Mean Blood Pressure Mean [Right Arm] 110 Blood Pressure Position Pulse Oximetry 95 Oxygen Delivery Method Nasal Cannula Oxygen Flow Rate 2 Sepsis Recent Fever Within 48 Hours Sepsis New/Unexplained Change in Mental Status Sepsis Action Taken by [facility] Medications Current Medication List: was personally reviewed by me Laboratory Data Attestation: I reviewed the patient's lab results. 10/08/24 16:19 10/08/24 16:19 Lab Results 10/08/24 10/08/24 Range/Units 16:19 17:25 WBC 12.10 H (4.8-10.8) K/ul RBC 5.08 (4.70-6.10) M/uL Hgb 16.0 (14.0-18.0) g/dl Hct 46.0 (42.0-52.0) % MCV 90.6 (80.0-100.0) fL MCH 31.5 (25.0-34.0) pg MCHC 34.8 (32.0-36.0) g/dL RDW Std Deviation 50.7 H (36.4-46.3) fL RDW Coeff of Mark 15.3 H (11.5-14.5) % Plt Count 182 (130-400) K/uL MPV 9.6 (9.4-12.4) fL Immature Gran % (Auto) 0.4 % Neut % (Auto) 64.3 % Lymph % (Auto) 23.1 % Gove % (Auto) 7.0 % Eos % (Auto) 4.7 % Baso % (Auto) 0.5 % Neut # (Auto) 7.78 H (1.40-6.50) K/uL Lymph # (Auto) 2.79 (1.20-3.40) K/uL Gove # (Auto) 0.85 H (0.11-0.59) K/uL Eos # (Auto) 0.57 H (0.00-0.50) K/uL Baso # (Auto) 0.06 (0.00-0.20) K/uL Immature Gran # (Auto) 0.05 (0.01-0.20) K/uL PT Cancelled 10.3 INR Cancelled 0.9 APTT Cancelled 27 PTT Ratio Cancelled 1.0 Sodium 137 (136-145) mmol/L Potassium 3.9 (3.5-5.1) mmol/L Chloride 104 (98-107) mmol/L Carbon Dioxide 27 (21-32) mmol/L Anion Gap 6 (3-11) BUN 17 (6-23) mg/dl Creatinine 1.56 H (0.6-1.4) mg/dl Est Cr Clr Drug Dosing 41.7 ml/min eGFR 44.90 BUN/Creatinine Ratio 10.9 (10-20) Glucose 166 H (70-99(Fasting)) mg/dl Calcium 9.5 (8.6-10.3) mg/dl Magnesium 2.0 (1.7-2.4) mg/dl Total Bilirubin 0.7 (0.2-1.0) mg/dl AST 15 (13-39) U/L ALT 14 (7-52) U/L Alkaline Phosphatase 98 (34-104) U/L Troponin I High Sens 8.1 (0-20) pg/ml B-Natriuretic Peptide 38 (0-100) pg/ml Total Protein 7.3 (6.0-8.3) gm/dl Albumin 3.9 (3.4-5.0) gm/dl Globulin 3.4 (2.5-4.0) gm/dl Albumin/Globulin Ratio 1.1 (0.9-2) Adenovirus (PCR) Not Detected (NotDetected) B. pertussis DNA (PCR) Not Detected (NotDetected) B.parapertussis DNA PCR Not Detected (NotDetected) C. pneumoniae DNA (PCR) Not Detected (NotDetected) Coronavirus OC43 (PCR) Not Detected (NotDetected) Coronavirus HKU1 (PCR) Not Detected (NotDetected) Coronavirus 229E (PCR) Not Detected (NotDetected) SARS-CoV-2 (PCR) Not Detected (NotDetected) Coronavirus NL63 (PCR) Not Detected (NotDetected) Human Metapneumovir PCR Not Detected (NotDetected) Influenza Type A (PCR) Not Detected (NotDetected) Influenza Type B (PCR) Not Detected (NotDetected) M. pneumoniae (PCR) Not Detected (NotDetected) Parainfluenza 1 (PCR) Not Detected (NotDetected) Parainfluenza 2 (PCR) Not Detected (NotDetected) Parainfluenza 3 (PCR) Not Detected (NotDetected) Parainfluenza 4 (PCR) Not Detected (NotDetected) RSV (PCR) Not Detected (NotDetected) Entero/Rhino (PCR) Not Detected (NotDetected) Administered Medications Guaifenesin (Guaifenesin 600 Mg Tabcr) 1,200 mg PO Q12 TRAV Stop: 11/07/24 22:44 Last Admin: 10/08/24 22:55 Dose: 1,200 mg Documented By: ASW Discontinued Medications Ioversol (Optiray 320 125ml) 119 ml IV ONCE ONE Stop: 10/08/24 20:17 Last Admin: 10/08/24 20:16 Dose: 119 ml Documented By: PLW Methylprednisolone (Methylprednisolone 125 Mg/2 Ml Vial) 40 mg IV ONE ONE Stop: 10/08/24 22:46 Last Admin: 10/08/24 22:55 Dose: 40 mg Documented By: ASW Imaging Data Attestation: I personally reviewed and interpreted this imaging study as follows: My Impression: 1 view chest x-ray was obtained in the emergency department. My interpretation is no free air or definite infiltrate, final report below. Radiologist's Impression: Chest X-Ray 10/08/24 15:42 EXAM: Radiograph of the Abdomen 1 View INDICATION: Chest pain. TECHNIQUE: Frontal supine view of the abdomen/pelvis. COMPARISON: 09/17/2024 FINDINGS: Limitations: None. Lower thorax: Stable interstitial scarring. Lungs and pleural spaces: No consolidation or pulmonary edema. No pleural effusion or pneumothorax. Gastrointestinal tract: Air scattered throughout non-dilated intestinal loops. Organs: Visualized organ shadows appear grossly normal. Bones/joints: No fracture, erosion or dislocation. Soft tissues: No abnormality noted. No radiopaque foreign body noted. IMPRESSION: Stable chronic changes. No acute disease. ACT 112: Negative or not required by law. Electronically signed by Judy Morris 10-08-2024 6:17 PM Chest CTA 10/08/24 18:27 Exam(s): CTA CHEST IV Amt: 119 ml opti 320 EXAM: CT Angiography Chest With Intravenous Contrast CLINICAL HISTORY: Reason for exam: PE. TECHNIQUE: Axial computed tomographic angiography images of the chest with intravenous contrast. CTDI is 35.62 mGy and DLP is 901.78 mGy-cm. Automated exposure control was utilized for the study. A dose lowering technique was utilized adhering to the principles of ALARA. MIP reconstructed images were created and reviewed. COMPARISON: CT 01/07/2024 FINDINGS: Pulmonary arteries: No pulmonary embolism. Aorta: No acute findings. Normal caliber. No dissection. Lungs: Scattered atelectasis. No consolidation or interstitial edema. Pleural space: No pleural effusion. No pneumothorax. Heart: Unremarkable. Bones/joints: No acute fracture. Soft tissues: Unchanged 2.8 cm mass in the left breast. Lymph nodes: Unremarkable. IMPRESSION: 1. No pulmonary embolism. 2. Unchanged 2.8 cm mass in the left breast. Electronically signed by: Niko Mai MD 10/08/24 21:07 PM Discharge Plan Visit Data Chief Complaint: Shortness of Breath/Dyspnea Stated Complaint: OX LOW, SOB, TIGHTENED CHEST, COUGH ED Provider: Nigel Fried Discharge Problem: SOB (shortness of breath), Hypoxia, COPD (chronic obstructive pulmonary disease) Patient Disposition: Admitted As Inpatient Discharge Instructions Interventions: ED Discharge Assessment Last Done: 01/29/25 22:47 Discharge Problem: COPD (chronic obstructive pulmonary disease) Qualifiers: COPD type: unspecified COPD Qualified Code(s): J44.9 - Chronic obstructive pulmonary disease, unspecified
[2024-10-08 18:36] LABS: INR 0.9 (0.9-1.1); Partial Thromboplastin Time 27 Seconds (21-31); Prothrombin Time 10.3 Seconds (9.0-12.0)
[2024-10-08] MEDS: OPTIRAY 320 125ml IV ONE (20:16)
--- NOTE | 2024-10-08 21:08 | CT Scan Report ---
Exam(s): CTA CHEST IV Amt: 119 ml opti 320 EXAM: CT Angiography Chest With Intravenous Contrast CLINICAL HISTORY: Reason for exam: PE. TECHNIQUE: Axial computed tomographic angiography images of the chest with intravenous contrast. CTDI is 35.62 mGy and DLP is 901.78 mGy-cm. Automated exposure control was utilized for the study. A dose lowering technique was utilized adhering to the principles of ALARA. MIP reconstructed images were created and reviewed. COMPARISON: CT 01/07/2024 FINDINGS: Pulmonary arteries: No pulmonary embolism. Aorta: No acute findings. Normal caliber. No dissection. Lungs: Scattered atelectasis. No consolidation or interstitial edema. Pleural space: No pleural effusion. No pneumothorax. Heart: Unremarkable. Bones/joints: No acute fracture. Soft tissues: Unchanged 2.8 cm mass in the left breast. Lymph nodes: Unremarkable. IMPRESSION: 1. No pulmonary embolism. 2. Unchanged 2.8 cm mass in the left breast. Electronically signed by: Niko Mai MD 10/08/24 21:07 PM
--- NOTE | 2024-10-08 21:59 | History & Physical Report ---
Date of Service October 08, 2024 Assessment & Plan (1) Acute exacerbation of chronic obstructive pulmonary disease (COPD): (2) Acute hypoxic respiratory failure: (3) Diabetes mellitus, type II: (4) CKD (chronic kidney disease) stage 3, GFR 30-59 ml/min: Plan Patient is a 79-year-old male with past medical history of COPD, CKd stage III, T2DM, hyperlipidemia, hypertension, 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 Patient stated he has a questionable history of COPD, no official diagnosis as PFTs in August were inconclusive. He was recently discharged 09/20/2024 due to COPD exacerbation on a 3-day course of azithromycin and prednisone taper. Patient stated he was doing better but over the past few days developed dyspnea on exertion along with chest tightness and a cough. He is being admitted for COPD exacerbation. #COPD exacerbation/hypoxia Questionable history of COPD, with frequent exacerbations - recent dc 09/20/24 CTA/CXR negative Hypoxic in ED, 2L via nasal cannula on admission - Uses 2L NC at bedtime at baseline, but not during day leukocytosis - WBC 12.10 on admission (chronically elevated, improved from baseline), trend CBC does not have home inhalers wean oxygen as tolerated recent treatment with azithromycin so will treat with doxycycline 200 mg now followed by 100 BID Solu-Medrol 40 mg IV daily started on admission, attempt to titrate down when clinically indicated formoterol and budesonide nebs BID - improvement with these nebs during previous hospitalization flutter valve QID, incentive spirometry, Mucinex, flonase sputum cultures ordered Promote oral hydration consult pulmonology with recurrent hospitalizations due to COPD exacerbations - patient has been trying to arrange outpatient follow-up, has not yet set up - Patient would like to establish care with [facility] pulmonology #T2DM controlled on Farxiga, glipizide, and sitagliptin; held SSI with target BSG range 110-140mg/dL, CF 20, carb ratio 5 Lantus 16 u BID pharmacy glycemic consult with IV steroid use #CKD stage 3 renal function greatly improved since recent hospitalization CR 1.56 on admission (baseline 1.6) Holding Farxiga as not on formulary Continue K+ 20 mEq BID Avoid nephrotoxic agents Promote oral hydration Trend BMP Right hand extravasation - from IV fluid malfunction, ice and elevate Chronic stable diagnoses: HTN - Continue lisinopril, metoprolol, and amlodipine B12 deficiency - continue supplement HLD - continue statin insomnia - continue trazodone VTE ppx: SCDs - low risk Diet: T2DM Dispo: med/tele Admission and Anticipated Discharge Date Admission Date: 10/08/24 History of Present Illness Primary Care Provider: Juanita Carlson PA-C Patient is a 79-year-old male with past medical history of COPD, CKd stage III, T2DM, hyperlipidemia, hypertension, 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 He was recently discharged 09/20/2024 due to COPD exacerbation on a 3-day course of azithromycin and prednisone taper. Patient stated he was doing better but over the past few days developed dyspnea on exertion along with chest tightness and a cough. He is being admitted for COPD exacerbation. Patient seen at bedside. He is requiring 2L NC due to hypoxia. He uses 2L NC at bedtime at home but not typically during the day. Over the last few days he has been using intermittently for 1 to 2 hours as needed when he develops dyspnea, he stated his oxygen sats been around 83% when he checks. He uses oxygen to let up trended to 92%. He stated he does have sputum production, it is clear/yellow. He stated it is possible he has a sinus infection because he gets frequent sinus infections. Patient stated he has questionable COPD. He was told he has COPD hospitalized here, but PCP stated that he does not have. [facility] stated results of DLCO testing are questionable due to patient's inability to perform the maneuvers according to the ATS standards. Patient would like to establish care with [facility] apprentice embalmer, was trying to arrange outpatient appointment but has not yet been set up. Would like to see pulmonology during inpatient stay; consulted. He does not use inhalers at baseline. He did state that treatment during recent hospitalization did help but symptoms. Discussing noted albuterol allergy, patient stated he never had an allergy to this and has used many times with no reaction. Albuterol was removed from his allergy list. Patient stated he completed the prednisone taper. Patient denies fever, chills, dizziness, lightheadedness, abdominal pain, nausea, vomiting, diarrhea. He stated his chest tightness is due to dyspnea and denies chest pain. During recent hospitalization he was found to have an GEOVANNI and lisinopril was held. When he followed up with nephrology about 1 week ago, he was told to resume lisinopril. Renal function is improved on admission. He also recently discontinued metformin as thought to be contributing to frequent GEOVANNI's, he was started on Farxiga. He was a former smoker, denies current smoking. He does not drink alcohol. He did take his morning medications but is due for evening medications. He wishes to be DNR/DNI at this time. Allergies Allergy/AdvReac Type Severity Reaction Status Date / Time Influenza Virus Vaccines Allergy Severe Shortness Verified 10/01/24 09:37 of breath ipratropium [From Combivent] Allergy Unknown On med Unverified 10/01/24 09:37 list from [facility] atorvastatin AdvReac Intermediate Cramping Verified 10/01/24 09:37 of the Muscles simvastatin AdvReac Intermediate Cramping Verified 10/01/24 09:37 of the Muscles Unknown antibiotic AdvReac visual Uncoded 10/01/24 09:37 disturbance/diarrhea Home Medications Medication Instructions Recorded Confirmed Type cholecalciferol (vitamin D3) 50 2,000 unit PO QAM 09/20/18 10/08/24 History mcg (2,000 unit) capsule pravastatin 40 mg tablet 40 mg PO HS 09/20/18 10/08/24 History potassium chloride 20 mEq 20 meq PO BID 05/19/21 10/08/24 History tablet,extended release aspirin 81 mg tablet,delayed 81 mg PO DAILY 06/20/21 10/08/24 History release cetirizine 10 mg tablet 10 mg PO DAILY 06/20/21 10/08/24 History cyanocobalamin (vitamin B-12) 500 500 mcg PO Q OTHER DAY 03/28/22 10/08/24 History mcg tablet (Vitamin B-12) acetaminophen 500 mg tablet 500 mg PO Q6H PRN Pain 09/17/24 10/08/24 History amlodipine 5 mg tablet 5 mg PO BID 09/17/24 10/08/24 History dexamethasone 0.5 mg tablet 0 mg PO DAILY 09/17/24 10/08/24 History fluticasone propionate 50 2 spray intranasal BID 09/17/24 10/08/24 History mcg/actuation nasal spray,suspension glipizide 10 mg tablet 10 mg PO BID 09/17/24 10/08/24 History lisinopril 10 mg tablet 10 mg PO DAILY 09/17/24 10/08/24 History metoprolol tartrate 50 mg tablet 25 mg PO BID 09/17/24 10/08/24 History sitagliptin 50 mg tablet 50 mg PO DAILY 09/17/24 10/08/24 History trazodone 50 mg tablet 50 mg PO HS PRN Sleep 09/17/24 10/08/24 History prednisone 10 mg tablet 10 mg PO DIRECTED #22 tabs 09/20/24 10/08/24 Rx dapagliflozin propanediol 10 mg 10 mg PO DAILY #90 tabs 10/01/24 10/08/24 Rx tablet (Farxiga) Past Med/Surg History Problem List (Updated 10/09/24 @ 13:23 by Thalia Barnard MD, [facility]) Ex-smoker CHRISTIAN (obstructive sleep apnea) Alveolar emphysema of lung Peripheral eosinophilia Asthma-COPD overlap syndrome Hypoxia (Acute) Proteinuria Vitamin D deficiency Stage 3b chronic kidney disease Alteration in vision (Acute) Chest pain (Acute) Insomnia (Acute) Coronavirus infection (Acute) COPD (chronic obstructive pulmonary disease) (Acute) Lab test negative for COVID-19 virus (Acute) Cough (Acute) Hypoxemia (Acute) Bronchitis (Acute) Acute exacerbation of chronic obstructive pulmonary disease (COPD) 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 (Acute) COVID Left breast mass (Acute) Hypertension (Acute) Acute hypoxic respiratory failure Hyperlipidemia Diabetes mellitus, type II (Acute) CKD (chronic kidney disease) stage 3, GFR 30-59 ml/min (Acute) Substernal precordial chest pain (Acute) SOB (shortness of breath) (Acute) Mitral regurgitation Calculus of proximal left ureter (Acute) Hydronephrosis due to obstruction of ureter (Acute) Vision loss of left eye (Chronic) Medical History Hypoxic Pneumonia due to COVID-19 virus Hyperglycemia Leukocytosis Chest pain Acute kidney injury superimposed on CKD Cervical pain (neck) Pulmonary nodules Dyspnea on exertion Orthopnea Osteoarthritis Nephrolithiasis Surgical History Hx of cystoscopy STENT INSERTION AND NOW HAS CHRONIC PAIN IN LEFT LEG SINCE SURGERY H/O eye surgery RETINA REPAIR IN BOTH EYES Family History Father Congestive heart failure Mother Cancer Social History Smoking Status: Former smoker Tobacco Type: Cigarettes Smoking End Date: quit 60 yrs ago; Second Hand Exposure: No; Do You Dip or Chew Tobacco: No; Hx Alcohol Use: No Hx Substance Use: No Preferred Language: Slovak Communication Ability: Effective Visual Impairment: Partially Limited Hotel Attendant Required: No Beliefs That Will Affect Care: None marital status: / Current Living Situation: Family current occupational status: retired How many Children do You have: 3 Other Information That Helps Us Care for You: No Feels Safe at Home: Yes Safety Concerns: Feels Safe At This Time Diet: diabetic during the past year weight has: remained stable Assistive Devices: Oxygen - Continuous Review of Systems Review of Systems: see HPI Physical Exam Physical Exam: The patient is awake, alert and oriented 3, well developed and well nourished, normocephalic and atraumatic, in no acute distress. Non-toxic appearing. HEENT- EOMI, mucous membranes moist. Hearing grossly intact. Heart-normal S1 and S2. No murmurs, rubs or gallops. Lungs-decrease bilaterally, no wheezes, no respiratory distress, no accessory muscle use. 2L NC. Abdomen-normal bowel sounds and soft. No ascites noted. Non-tender. Extremities- no clubbing, cyanosis, or edema. Rheumatologic-normal range of motion. Psychiatric-normal affect. Skin: right hand edema from IV malfunction Results & Data Results & Data Vital Signs (Past 12 Hours) Vital Signs Temp Pulse Pulse Resp BP BP Pulse Ox 10/08/24 21:15 76 20 146/71 H 95 10/08/24 20:56 74 22 95 10/08/24 20:54 75 10/08/24 18:49 62 19 146/79 H 95 10/08/24 17:17 69 16 141/82 H 94 10/08/24 16:48 68 10/08/24 16:42 62 19 152/75 H 96 10/08/24 15:39 37 C 81 20 141/73 H 93 O2 Del Method O2 Flow Rate 10/08/24 21:15 Nasal Cannula 2 10/08/24 20:56 Nasal Cannula 2 10/08/24 20:54 10/08/24 18:49 Nasal Cannula 2 10/08/24 17:17 Nasal Cannula 2 10/08/24 16:48 10/08/24 16:42 Nasal Cannula 2 10/08/24 15:39 Room Air Laboratory Results Reviewed CBC, CMP, troponin, BNP, bio fire Diagnostic Findings reviewed CXR and chest CTA Medications Administered ed: none admission: formoterol neb, budesonide nebs, Mucinex, Solu-Medrol 40 Mg IV ECG Additional Comments: sinus rhythm with first-degree AV block, incomplete RBBB Similar to previous Code Status & VTE Plan Code Status dnr/dni VTE Prophylaxis Plan VTE Prophylaxis will be ordered: Yes Supervising Physician Co-Signing Physician Notes Attending addendum: I have physically seen this patient, have supervised the ARMOND's activities, and agree with the H&P unless as otherwise noted. Assessment and Plan: The patient is a 79-year-old male with a past medical history including COPD, CKD stage III, diabetes mellitus type 2, hyperlipidemia, hypertension, with most recent admission to [facility] from 09/17-09/20/2024 for COPD exacerbation and discharged on 3-day course of azithromycin and prednisone taper. Patient reported he would doing somewhat better, however, over the past few days developed worsening shortness of breath, dyspnea on exertion, chest tightness and intermittently productive cough. [place] the day of [place] for routine follow-up from hospital, was found to be short of breath, hypoxic with dyspnea on exertion, and was advised to come to the ED for further assessment. #COPD exacerbation/acute on chronic respiratory failure with hypoxia and hypercapnia- The patient will be admitted to telemetry for serial cardiac enzymes, serial EKG's, cardiac rhythm monitoring BioFire respiratory test negative Chest x-ray, CTA PE protocol negative Placed on nasal cannula oxygen, with titration goal 92% Most recent hospitalization was treated with azithromycin Placed on doxycycline 100 mg IV twice daily Formoterol Add budesonide 0.5 mg inhaled twice daily Methylprednisolone 40 mg IV daily Flutter valve 4 times daily Incentive spirometry Mucinex 60 mg p.o. every 12 hours Flonase 2 sprays each nostril daily Follow sputum culture and Gram stain Patient has not been established with pulmonology, and with his chronic COPD, would benefit, will therefore consult pulmonology #Diabetes mellitus type 2-while in hospital miki Mcgeepizide and sitagliptin Lantus 16 units subcu twice daily Pharmacy glycemic consult due to IV steroid use Place next active NovoLog SSI #CKD stage III creatinine 1.56, with base around 1.6 Advise oral hydration Follow BMP and magnesium level #Chronic medical conditions: Hypertension-continue lisinopril, metoprolol and amlodipine with hold parameters B12 deficiency continue usual supplement Hyperlipidemia-continue pravastatin Insomnia-continue trazodone PG Care Time/CCT Total # of Minutes Spent Total Time Spent with Patient: Total time spent is greater than 50% in coordination of care (as documented) at patient's floor/unit and/or counseling patient: Coding Level of Care Code 59251 INT INP/OBS CARE MIN Diagnoses Acute exacerbation of chronic obstructive pulmonary disease (COPD) J44.1 Acute hypoxic respiratory failure J96.01 Diabetes mellitus, type II E11.65 Diabetes mellitus complication status: with hyperglycemia Diabetes mellitus specialty cook insulin use: unspecified specialty cook insulin use status CKD (chronic kidney disease) stage 3, GFR 30-59 ml/min N18.30 Chronic kidney disease stage 3 subtype: unspecified whether 3a or 3b (3) Diabetes mellitus, type II Diabetes mellitus complication status: with hyperglycemia Diabetes mellitus [facility] insulin use: unspecified specialty cook insulin use status Qualified Code(s): E11.65 - Type 2 diabetes mellitus with hyperglycemia (4) CKD (chronic kidney disease) stage 3, GFR 30-59 ml/min Chronic kidney disease stage 3 subtype: unspecified whether 3a or 3b Qualified Code(s): N18.30 - Chronic kidney disease, stage 3 unspecified
[2024-10-08] MEDS ORDERED: methylPREDNISolone 40 MG in SYRINGE 0 ML IV ONE (22:17)
[2024-10-08] MEDS: methylPREDNISolone 125 MG/2 ML VIAL IV ONE (22:55)
[2024-10-08] MEDS: guaiFENesin 600 MG TABCR PO SCH (22:55)
[2024-10-08] MEDS ORDERED: PHARMACY GLYCEMIC MGMT CONSULT PRN (23:30)
[2024-10-08] MEDS ORDERED: DOCUSATE SODIUM 100 MG CAP PO PRN (23:30)
[2024-10-08] MEDS ORDERED: GLUCAGON FOR INJ 1 MG VIAL SQ PRN (23:30)
[2024-10-08] MEDS ORDERED: DEXTROSE 50% 50 ML SYRINGE IV PRN (23:30)
[2024-10-08] MEDS ORDERED: CARBOHYDRATES FOR HYPOGLYCEMIA PO PRN (23:30)
[2024-10-08] MEDS ORDERED: GLUCOSE 40% GEL 15 GM TUBE PO PRN (23:30)
[2024-10-08] MEDS ORDERED: GLUCOSE 10 TAB/TUBE PO PRN (23:30)
[2024-10-08] MEDS ORDERED: ACETAMINOPHEN 325 MG TAB PO PRN (23:30)
[2024-10-09] MEDS: INSULIN ASPART PER UNIT CHARGE SC SCH ×2 (00:10→17:45)
[2024-10-09] MEDS: LANTUS PER UNIT CHARGE SQ ONE ×2 (00:10→22:12)
[2024-10-09] MEDS: traZODone HCL 50 MG TAB PO PRN (00:11)
[2024-10-09] MEDS: amLODIPine BESYLATE 5 MG TAB PO SCH (00:11)
[2024-10-09] MEDS: POTASSIUM CHLORIDE CRTAB 20 MEQ TABCR PO SCH (00:11)
[2024-10-09] MEDS: DOXYCYCLINE HYCLATE 100 MG CAP PO STA (00:11)
[2024-10-09] MEDS: METOPROLOL TARTRATE 25 MG TAB PO SCH (00:11)
[2024-10-09] MEDS: PRAVASTATIN SOD 40 MG TAB PO SCH (00:12)
[2024-10-09 00:17] LABS: Appearance Urine Clear (Clear); Bacteria Urine Automated None Seen (None Seen); Bilirubin Urine Negative (Negative); Blood Urine Negative (Negative); Cast Urine Automated 0-2 /lpf (0-2); Color Urine Yellow; Epithelial Cell Urine Auto 0-2 /hpf (0-2); Glucose Urine UA 2+ (Negative); Ketones Urine Negative (Negative); Leukocyte Esterase Urine Negative (Negative); Nitrite Urine Negative (Negative); Protein Urine 2+ (Negative); RBC Urine Automated 0-2 /hpf (0-2); Specific Gravity Urine 1.041 (1.000-1.030); Urobilinogen Urine Negative (Negative); WBC Urine Automated 0-5 /hpf (0-5); pH Urine 6.5 (4.5-7.5)
[2024-10-09] MEDS: BUDESONIDE 0.5 MG/2 ML VIAL (PULMICORT) NEB SCH (00:28)
[2024-10-09] MEDS: FORMOTEROL 20 MCG/2 ML VIAL NEB SCH ×2 (00:28→19:54)
[2024-10-09 06:58] LABS: Basophils # (auto) 0.01 K/uL (0.00-0.20); Basophils % (auto) 0.1 %; Eosinophils # (auto) 0.01 K/uL (0.00-0.50); Eosinophils % (auto) 0.1 %; Hematocrit (blood only) 42.7 % (42.0-52.0); Hemoglobin 14.6 g/dl (14.0-18.0); Immature Granulocytes # (auto) 0.04 K/uL (0.01-0.20); Immature Granulocytes % (auto) 0.5 %; Lymphocytes # (auto) 1.08 K/uL (1.20-3.40); Lymphocytes % (auto) 14.2 %; Mean Corpuscular Hemoglobin 31.1 pg (25.0-34.0); Mean Corpuscular Hgb Conc 34.2 g/dL (32.0-36.0); Mean Platelet Volume 9.8 fL (9.4-12.4); Monocytes % (auto) 1.3 %; Neutrophils # (auto) 6.37 K/uL (1.40-6.50); Neutrophils % (auto) 83.8 %; Platelet Count 175 K/uL (130-400); RDW Coefficient of Variation 15.2 % (11.5-14.5); RDW Standard Deviation 50.2 fL (36.4-46.3); Red Blood Count 4.69 M/uL (4.70-6.10); White Blood Count 7.61 K/ul (4.8-10.8)
[2024-10-09 07:45] LABS: BUN Creatinine Ratio 13.6 (10-20); Calcium 8.8 mg/dl (8.6-10.3); Magnesium 1.9 mg/dl (1.7-2.4); Potassium 4.9 mmol/L (3.5-5.1)
[2024-10-09] MEDS: ASPIRIN 81 MG ECTAB PO SCH (08:19)
[2024-10-09] MEDS: CETIRIZINE HCL 10 MG TABLET PO SCH (08:20)
[2024-10-09] MEDS: CYANOCOBALAMIN (B-12) 500 MCG TABLET PO SCH (08:20)
[2024-10-09] MEDS: DOXYCYCLINE HYCLATE 100 MG CAP PO SCH (08:21)
[2024-10-09] MEDS: lisinopril 10 MG TAB PO SCH (08:21)
[2024-10-09] MEDS: FLUTICASONE PROPIONATE NA SPR 16 GM BTL SCH (08:27)
[2024-10-09] MEDS: methylPREDNISolone 40 MG in SYRINGE 0 ML IV SCH (08:29)
[2024-10-09] MEDS ORDERED: guaiFENesin 600 MG TABCR PO SCH (09:00)
[2024-10-09] MEDS ORDERED: methylPREDNISolone 125 MG/2 ML VIAL IV SCH (09:00)
--- NOTE | 2024-10-09 09:46 | Electrocardiogram Report ---
Test Reason : Blood Pressure : */* mmHG Vent. Rate : 72 BPM Atrial Rate : 72 BPM P-R Int : 236 ms QRS Dur : 94 ms QT Int : 378 ms P-R-T Axes : 64 -2 30 degrees QTcB Int : 413 ms Sinus rhythm with 1st degree A-V block Incomplete right bundle branch block Inferior infarct (cited on or before 18-Sep-2018) Abnormal ECG When compared with ECG of 29-Sep-2024 18:38, ND interval has increased Confirmed by Nigel Law ([id number]) on 10/09/2024 9:46:23 AM Referred By: Confirmed By: Nigel Law
[2024-10-09] MEDS: NovoLIN-N (NPH) PER UNIT CHARGE SQ ONE (09:48)
--- NOTE | 2024-10-09 11:36 | Pharmacy Report ---
Pharmacy Glycemic Short Note 2 - Date of Service October 09, 2024 - Glycemic Short BSG Results (Last 24 hours): 10/08/24 10/08/24 10/09/24 16:19 23:36 06:05 Glucose 166 H 307 H* POC Glucose 182 H 10/09/24 10/09/24 08:01 08:04 Glucose POC Glucose 387 H* 373 H* OUTPATIENT ANTIDIABETIC REGIMEN: * Dapagliflozin * Glipizide * Sitagliptin * HbA1c 7.3% on 09/18/24 ASSESSMENT: * 79 yo M w T2DM admitted w COPD exacerbation and started on steroids. BSG's originally reasonable, but climbed after steroid administration * Methylpred ordered once daily in AM - will therefore use NPH as basal insulin * Will tighten Novolog to weight-based moderate stress estimate for now and adjust based on BSG trend ongoing PLAN FOR INPATIENT GLYCEMIC CONTROL: * Hold outpatient oral diabetes medications * Basal insulin * NPH 25 units SQ x1 this AM * Bolus insulin * NovoLog per scale ACHS or Q6hrs while NPO * Goal Range: Low 110 mg/dL - High 140 mg/dL * Correction Factor: 25 mg/dL/unit * Nutritional / Prandial insulin per carb ratio of 1 unit per 8 grams CHO consumed
--- NOTE | 2024-10-09 12:06 | Pulmonary Consultation ---
Date of Consultation October 09, 2024 Assessment & Plan (1) Asthma-COPD overlap syndrome: (2) Peripheral eosinophilia: (3) Alveolar emphysema of lung: (4) CHRISTIAN (obstructive sleep apnea): (5) Ex-smoker: Plan CT chest 10/08/2024 personally reviewed: Paraseptal emphysema appreciated bilaterally especially in the upper lobes Motion degraded study Examined the lower lobes No significant mediastinal lymphadenopathy PFT 08/13/2024 personally reviewed: No obstructive lung dysfunction, insignificant bronchodilator response, mild decrease in DLCO FVC 2.28 L 91%, FEV1 1.89 L 110%, FEV1/FVC 83, ERV 52%, DLCO 65% 2D echo 08/14/2023: EF 65-70%, mild concentric LVH, RV not well-visualized --Asthma-COPD overlap syndrome/pulmonary emphysema with peripheral eosinophilia Only 54-[id number]-iedr smoking history Quit in his 20s Not on any inhalers at home Procalcitonin 0.07 Respiratory BioFire negative for everything on 10/08/2024 BNP 28 Absolute eosinophil count 570 on 10/08/2024, as high as 1090 on 09/17/2024 --CHRISTIAN Unable to tolerate CPAP Plan: I think patient has a combination of asthma-COPD overlap syndrome On the PFT unfortunately I was not get the value of TLC. There might be a component of restriction from his BMI that is why his obstructive function seems to be subdued from restrictive pattern. Complete 5 days of doxycycline Absolute eosinophil count 570 on 10/08/2024, I will add montelukast to his regimen Alpha-1 level to be done tomorrow RAST panel with IgE to be done tomorrow DC Solu-Medrol, prednisone 20 mg daily for 5 days Will benefit from inhalers like Advair HFA, Symbicort or Dulera at home. BrandonTri can also be thought of. While in the hospital I will give him budesonide and Perforomist nebulized Case was discussed with RN at bedside Outpatient pulmonary follow-up Please note the above document was generated using voice recognition software. It may contain grammatical, syntax or spelling errors.Any formal questions or concerns about the content, text or information contained within the body of this dictation should be directly addressed to the provider for clarification. History of Present Illness Attending Physician: Hugo Ruiz MD History of Present Illness 79-year-old male was admitted to the hospital because of chest tightness and worsening shortness of breath Past medical history: CKD, type 2 diabetes, dyslipidemia, hypertension, CHRISTIAN unable to tolerate CPAP He was recently discharged on 09/20/2024 on tapering dose of prednisone and azithromycin. Patient is not on any inhalers at home. He says that he was given some inhaler by ariane shafer and he did not tolerated well. He is not sure the name of it. He does complain of chest tightness especially on exertion. Denies any nausea or vomiting No subjective fever or chills No dysuria, no diarrhea. He does have a history of sleep apnea but was not able to tolerate CPAP due to claustrophobia Social history: Only 12-lfon-mhyl smoking history, quit in his 20s. Denies any illicit drug use. 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 No history of lung cancer in the family Allergies Allergy/AdvReac Type Severity Reaction Status Date / Time Influenza Virus Vaccines Allergy Severe Shortness Verified 10/01/24 09:37 of breath ipratropium [From Combivent] Allergy Unknown On med Unverified 10/01/24 09:37 list from [facility] atorvastatin AdvReac Intermediate Cramping Verified 10/01/24 09:37 of the Muscles simvastatin AdvReac Intermediate Cramping Verified 10/01/24 09:37 of the Muscles Unknown antibiotic AdvReac visual Uncoded 10/01/24 09:37 disturbance/diarrhea Home Medications Medication Instructions Recorded Confirmed Type cholecalciferol (vitamin D3) 50 2,000 unit PO QAM 09/20/18 10/08/24 History mcg (2,000 unit) capsule pravastatin 40 mg tablet 40 mg PO HS 09/20/18 10/08/24 History potassium chloride 20 mEq 20 meq PO BID 05/19/21 10/08/24 History tablet,extended release aspirin 81 mg tablet,delayed 81 mg PO DAILY 06/20/21 10/08/24 History release cetirizine 10 mg tablet 10 mg PO DAILY 06/20/21 10/08/24 History cyanocobalamin (vitamin B-12) 500 500 mcg PO Q OTHER DAY 03/28/22 10/08/24 History mcg tablet (Vitamin B-12) acetaminophen 500 mg tablet 500 mg PO Q6H PRN Pain 09/17/24 10/08/24 History amlodipine 5 mg tablet 5 mg PO BID 09/17/24 10/08/24 History dexamethasone 0.5 mg tablet 0 mg PO DAILY 09/17/24 10/08/24 History fluticasone propionate 50 2 spray intranasal BID 09/17/24 10/08/24 History mcg/actuation nasal spray,suspension glipizide 10 mg tablet 10 mg PO BID 09/17/24 10/08/24 History lisinopril 10 mg tablet 10 mg PO DAILY 09/17/24 10/08/24 History metoprolol tartrate 50 mg tablet 25 mg PO BID 09/17/24 10/08/24 History sitagliptin 50 mg tablet 50 mg PO DAILY 09/17/24 10/08/24 History trazodone 50 mg tablet 50 mg PO HS PRN Sleep 09/17/24 10/08/24 History prednisone 10 mg tablet 10 mg PO DIRECTED #22 tabs 09/20/24 10/08/24 Rx dapagliflozin propanediol 10 mg 10 mg PO DAILY #90 tabs 10/01/24 10/08/24 Rx tablet (Farxiga) Patient History Medical History Hypoxic Pneumonia due to COVID-19 virus Hyperglycemia Leukocytosis Chest pain Acute kidney injury superimposed on CKD Cervical pain (neck) Pulmonary nodules Dyspnea on exertion Orthopnea Osteoarthritis Nephrolithiasis Surgical History Hx of cystoscopy STENT INSERTION AND NOW HAS CHRONIC PAIN IN LEFT LEG SINCE SURGERY H/O eye surgery RETINA REPAIR IN BOTH EYES Family History Father Congestive heart failure Mother Cancer Social History Smoking Status: Former smoker Tobacco Type: Cigarettes Second Hand Exposure: No; Do You Dip or Chew Tobacco: No; Hx Alcohol Use: No Hx Substance Use: No Preferred Language: Kiswahili Communication Ability: Effective Visual Impairment: Partially Limited Quarry Equipment Operator Required: No Beliefs That Will Affect Care: None marital status: / Current Living Situation: Family current occupational status: retired How many Children do You have: 3 Feels Safe at Home: Yes Diet: diabetic during the past year weight has: remained stable Assistive Devices: Oxygen - Continuous Review of Systems 2 Review of Systems: All systems reviewed & are unremarkable except as noted in HPI & below Physical Exam 2 Physical Exam: Constitutional: No acute distress HEENT: EOMI, PERRLA, short thick neck Respiratory system: Good air entry bilaterally, no wheeze, no rhonchi, positive crackles appreciated bilaterally more on the left side, questionable Velcro CVS: S1-S2 positive, no murmurs or gallops Abdomen: Soft, nontender, nondistended, positive bowel sounds x4, obese Extremities: +2 pulses bilaterally radialis/ dorsalis pedis, no cyanosis, minimal pitting edema bilateral lower extremity Neuro: Awake alert oriented x3 Psych: Normal mood and affect G/U: No Hendrix Skin: no rashes, warm and dry Lymphatic: no cervical or axillary lymphadenopathy Results & Data Results & Data Vital Signs (Past 12 Hours) Vital Signs Temp Pulse Pulse Resp BP Pulse Ox O2 Del Method 10/09/24 11:31 36.4 C L 71 18 129/72 94 Nasal Cannula 10/09/24 10:42 92 Room Air 10/09/24 10:32 Room Air, Nasal Cannula 10/09/24 08:00 36.5 C 72 18 121/73 95 Nasal Cannula 10/09/24 07:23 82 10/09/24 07:23 84 18 Room Air 10/09/24 04:01 36.8 C 82 20 99/65 L 92 Nasal Cannula 10/09/24 00:31 84 17 95 Nasal Cannula 10/09/24 00:24 90 10/09/24 00:24 Nasal Cannula O2 Flow Rate 10/09/24 11:31 10/09/24 10:42 10/09/24 10:32 2 10/09/24 08:00 1.5 10/09/24 07:23 10/09/24 07:23 10/09/24 04:01 2 10/09/24 00:31 2 10/09/24 00:24 10/09/24 00:24 2 Laboratory Results 10/09/24 06:05 10/09/24 06:05 PG Care Time/CCT Total # of Minutes Spent Total Time Spent with Patient: Total time spent is greater than 50% in coordination of care (as documented) at patient's floor/unit and/or counseling patient: [place] [address] INT INP/OBS CARE MIN Patient Type New Diagnoses Asthma-COPD overlap syndrome J44.89 Peripheral eosinophilia D72.19 Alveolar emphysema of lung J43.1 CHRISTIAN (obstructive sleep apnea) G47.33 Ex-smoker Z87.891
--- NOTE | 2024-10-09 12:37 | Hospitalist Progress Note ---
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 Patient stated he has a questionable history of COPD, no official diagnosis as PFTs in August were inconclusive. He was recently discharged 09/20/2024 due to COPD exacerbation on a 3-day course of azithromycin and prednisone taper. Patient stated he was doing better but over the past few days developed dyspnea on exertion along with chest tightness and a cough. He is being admitted for COPD exacerbation. #COPD exacerbation/hypoxia Questionable history of COPD, with frequent exacerbations and hospitalization Most recent PFT was inconclusive Patient has a new pet (has a dog, but his symptoms started way before he got the dog) CTA/CXR negative Hypoxic in ED, 2L via nasal cannula on admission Uses 2L NC at bedtime at baseline, but not during day leukocytosis - WBC 12.10 on admission (chronically elevated, improved from baseline), trend CBC does not have home inhalers wean oxygen as tolerated Will consult Pulmonology Continue duonebs PRN, Velasquez #T2DM Poorly controlled on the back of steroids controlled on Farxiga, glipizide, and sitagliptin; held SSI with target BSG range 110-140mg/dL, CF 20, carb ratio 5 Lantus 16 u BID pharmacy glycemic consult with IV steroid use #CKD stage 3 renal function greatly improved since recent hospitalization CR 1.56 on admission (baseline 1.6) Holding Farxiga as not on formulary Continue K+ 20 mEq BID Avoid nephrotoxic agents Promote oral hydration Trend BMP Right hand extravasation - from IV fluid malfunction, ice and elevate Chronic stable diagnoses: HTN - Continue lisinopril, metoprolol, and amlodipine B12 deficiency - continue supplement HLD - continue statin insomnia - continue trazodone VTE ppx: SCDs - low risk Diet: T2DM Dispo: med/tele Admission and Anticipated Discharge Date Admission Date: October 08, 2024 Subjective patient seen and examined, says his SOB is better Review of Systems Review of Systems: All systems reviewed are negative, apart from the ones contained in the history. Physical Exam Physical Exam: The patient is awake, alert and oriented 3, well developed and well nourished, normocephalic and atraumatic, lying in bed and in no acute distress. HEENT--PERRL, EOMI, mucous membranes and oropharynx mildly dry Neck--supple. No JVD. No bruits. Thyroid normal, trachea midline, no adenopathy. Heart--normal S1 and S2. No murmurs, rubs or gallops. Lungs--clear bilaterally, no respiratory distress, no accessory muscle use. Abdomen--normal bowel sounds and soft. Extremities--no cyanosis or clubbing. No edema. Dermatologic--normal skin turgor, normal color, no abnormal lymph nodes, no rash. Neurologic--cranial nerves II through XII grossly intact. Rheumatologic--normal range of motion. Psychiatric--normal affect. Results & Data Results & Data Vital Signs (Past 12 Hours) Vital Signs Temp Pulse Pulse Resp BP Pulse Ox O2 Del Method 10/09/24 11:31 97.5 F L 71 18 129/72 94 Nasal Cannula 10/09/24 10:42 92 Room Air 10/09/24 10:32 Room Air, Nasal Cannula 10/09/24 08:00 97.7 F 72 18 121/73 95 Nasal Cannula 10/09/24 07:23 82 10/09/24 07:23 84 18 Room Air 10/09/24 04:01 98.2 F 82 20 99/65 L 92 Nasal Cannula O2 Flow Rate 10/09/24 11:31 10/09/24 10:42 10/09/24 10:32 2 10/09/24 08:00 1.5 10/09/24 07:23 10/09/24 07:23 10/09/24 04:01 2 PG Care Time/CCT Total # of Minutes Spent Total Time Spent with Patient: Total time spent is greater than 50% in coordination of care (as documented) at patient's floor/unit and/or counseling patient: Coding Level of Care Code 63841 SUB INP/OBS CARE 2/35MIN Diagnoses Acute exacerbation of chronic obstructive pulmonary disease (COPD) J44.1 Acute hypoxic respiratory failure J96.01 Diabetes mellitus, type II E11.65 Diabetes mellitus complication status: with hyperglycemia Diabetes mellitus mcfp insulin use: unspecified 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
[2024-10-09] MEDS: INSULIN ASPART PER UNIT CHARGE SC STA (13:29)
[2024-10-09] MEDS: INSULIN HUMAN REGULAR PER UNIT 5 UNITS in SYRINGE 4.95 ML IV ONE (13:30)
[2024-10-09] MEDS: BUDESONIDE 0.25 MG/2 ML VIAL (PULMICORT) NEB SCH (19:55)
[2024-10-09] MEDS: cefTRIAXone SODIUM 1,000 MG/50 ML BAG IV SCH (20:51)
[2024-10-09] MEDS: MONTELUKAST SODIUM 10 MG TABLET PO SCH (20:52)
[2024-10-10] MEDS: INSULIN ASPART PER UNIT CHARGE SC SCH (00:13)
--- NOTE | 2024-10-10 07:49 | Pulmonology Progress Note ---
Date of Service October 10, 2024 Assessment & Plan (1) Asthma-COPD overlap syndrome: (2) Peripheral eosinophilia: (3) Alveolar emphysema of lung: (4) CHRISTIAN (obstructive sleep apnea): (5) Ex-smoker: Plan CT chest 10/08/2024 personally reviewed: Paraseptal emphysema appreciated bilaterally especially in the upper lobes Motion degraded study Examined the lower lobes No significant mediastinal lymphadenopathy PFT 08/13/2024 personally reviewed: No obstructive lung dysfunction, insignificant bronchodilator response, mild decrease in DLCO FVC 2.28 L 91%, FEV1 1.89 L 110%, FEV1/FVC 83, ERV 52%, DLCO 65% 2D echo 08/14/2023: EF 65-70%, mild concentric LVH, RV not well-visualized --Asthma-COPD overlap syndrome/pulmonary emphysema with peripheral eosinophilia Only 52-dmxf-heci smoking history Quit in his 20s Not on any inhalers at home Procalcitonin 0.07 Respiratory BioFire negative for everything on 10/08/2024 BNP 28 Absolute eosinophil count 570 on 10/08/2024, as high as 1090 on 09/17/2024 I think patient has a combination of asthma-COPD overlap syndrome On the PFT unfortunately I was not get the value of TLC. There might be a component of restriction from his BMI that is why his obstructive function seems to be subdued from restrictive pattern. --CHRISTIAN Unable to tolerate CPAP Plan: Complete 5 days of doxycycline Absolute eosinophil count 570 on 10/08/2024, continue with montelukast Follow-up alpha-1 level and RAST panel with IgE Increase prednisone to 40 mg as of tomorrow, will also give a dose of Solu- Medrol 40 mg today Will benefit from inhalers like Advair HFA, Symbicort or Dulera at home. BrezTri can also be thought of. Continue with budesonide and Perforomist nebulized while in the hospital Case was discussed with RN at bedside Please note the above document was generated using voice recognition software. It may contain grammatical, syntax or spelling errors.Any formal questions or concerns about the content, text or information contained within the body of this dictation should be directly addressed to the provider for clarification. Admission and Anticipated Discharge Date Admission Date: October 08, 2024 Subjective Patient seen and examined at bedside. No acute distress, no adverse events overnight Stated overall he is feeling the same. He was actively wheezing when I examined him Was having coughing episodes overnight. Bringing up clear phlegm. No hemoptysis Fair appetite. Denied any unusual headache or blurry vision Review of Systems 2 Review of Systems: All systems reviewed & are unremarkable except as noted in Subjective Physical Exam 2 Physical Exam: Constitutional: No acute distress HEENT: EOMI, PERRLA, short thick neck Respiratory system: Good air entry bilaterally, positive expiratory wheeze bilaterally, no rhonchi, positive crackles appreciated bilaterally more on the left side, questionable Velcro CVS: S1-S2 positive, no murmurs or gallops Abdomen: Soft, nontender, nondistended, positive bowel sounds x4, obese Extremities: +2 pulses bilaterally radialis/ dorsalis pedis, no cyanosis, minimal pitting edema bilateral lower extremity Neuro: Awake alert oriented x3 Psych: Normal mood and affect G/U: No Hendrix Skin: no rashes, warm and dry Lymphatic: no cervical or axillary lymphadenopathy Results & Data Results & Data Vital Signs (Past 12 Hours) Vital Signs Temp Pulse Pulse Resp BP Pulse Ox O2 Del Method 10/10/24 07:38 59 L 15 94 Nasal Cannula 10/10/24 06:28 59 L 10/10/24 02:33 36.7 C 74 18 117/65 95 Nasal Cannula 10/09/24 23:08 36.6 C 76 20 110/59 L 94 Nasal Cannula 10/09/24 22:43 71 10/09/24 22:23 Nasal Cannula 10/09/24 19:55 78 18 94 Nasal Cannula O2 Flow Rate 10/10/24 07:38 2 10/10/24 06:28 10/10/24 02:33 1.5 10/09/24 23:08 1.5 10/09/24 22:43 10/09/24 22:23 2 10/09/24 19:55 2 Laboratory Results 10/09/24 06:05 10/09/24 06:05 PG Care Time/CCT Total # of Minutes Spent Total Time Spent with Patient: Total time spent is greater than 50% in coordination of care (as documented) at patient's floor/unit and/or counseling patient: Coding Level of Care Code 71194 SUB INP/OBS CARE 3/50MIN Diagnoses Asthma-COPD overlap syndrome J44.89 Peripheral eosinophilia D72.19 Alveolar emphysema of lung J43.1 CHRISTIAN (obstructive sleep apnea) G47.33 Ex-smoker Z87.891
[2024-10-10] MEDS: NovoLIN-N (NPH) PER UNIT CHARGE SQ ONE ×2 (08:49→16:27)
[2024-10-10] MEDS: predniSONE 20 MG TAB PO SCH (08:52)
[2024-10-10 08:53] LABS: Basophils # (auto) 0.01 K/uL (0.00-0.20); Basophils % (auto) 0.1 %; Hematocrit (blood only) 39.8 % (42.0-52.0); Hemoglobin 13.8 g/dl (14.0-18.0); Immature Granulocytes # (auto) 0.07 K/uL (0.01-0.20); Immature Granulocytes % (auto) 0.5 %; Lymphocytes # (auto) 2.12 K/uL (1.20-3.40); Lymphocytes % (auto) 14.5 %; Mean Corpuscular Hemoglobin 31.3 pg (25.0-34.0); Mean Corpuscular Hgb Conc 34.7 g/dL (32.0-36.0); Mean Corpuscular Volume 90.2 fL (80.0-100.0); Mean Platelet Volume 9.2 fL (9.4-12.4); Monocytes # (auto) 0.97 K/uL (0.11-0.59); Monocytes % (auto) 6.7 %; Neutrophils # (auto) 11.41 K/uL (1.40-6.50); Neutrophils % (auto) 78.2 %; Platelet Count 207 K/uL (130-400); RDW Coefficient of Variation 14.7 % (11.5-14.5); RDW Standard Deviation 48.5 fL (36.4-46.3); Red Blood Count 4.41 M/uL (4.70-6.10); White Blood Count 14.58 K/ul (4.8-10.8)
[2024-10-10] MEDS ORDERED: FLUTICASONE/VILANTEROL 100/25MCG 14 PUFFS/INHALER INH SCH (09:00)
[2024-10-10 09:01] LABS: Calcium 8.9 mg/dl (8.6-10.3); Creatinine Clr Calc Pharmacy 31.9 ml/min; Potassium 4.5 mmol/L (3.5-5.1)
[2024-10-10] MEDS ORDERED: methylPREDNISolone 125 MG/2 ML VIAL IV STA (09:42)
[2024-10-10] MEDS: methylPREDNISolone 40 MG in SYRINGE 0 ML IV ONE (10:36)
--- NOTE | 2024-10-10 11:06 | Hospitalist Progress Note ---
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 Patient stated he has a questionable history of COPD, no official diagnosis as PFTs in August were inconclusive. He was recently discharged 09/20/2024 due to COPD exacerbation on a 3-day course of azithromycin and prednisone taper. Patient stated he was doing better but over the past few days developed dyspnea on exertion along with chest tightness and a cough. He is being admitted for COPD exacerbation. #COPD exacerbation/hypoxia Per Pulmonology, patient seems to have Asthma-COPD overlap Started on Prednisone, Montelucast, Budesonide Also continue Doxycycline Please follow up with Pulm recommendations regarding discharge medications patient feels better this morning Pulm plans IgE and Rast test tomorrow #T2DM controlled on Farxiga, glipizide, and sitagliptin; held SSI with target BSG range 110-140mg/dL, CF 20, carb ratio 5 Lantus 16 u BID pharmacy glycemic consult with IV steroid use #CKD stage 3 renal function greatly improved since recent hospitalization CR 1.56 on admission (baseline 1.6) Holding Farxiga as not on formulary Continue K+ 20 mEq BID Avoid nephrotoxic agents Promote oral hydration Trend BMP Chronic stable diagnoses: HTN - Continue lisinopril, metoprolol, and amlodipine B12 deficiency - continue supplement HLD - continue statin insomnia - continue trazodone VTE ppx: SCDs - low risk Diet: T2DM Dispo: Hopefully d/c when ok with Pulm Admission and Anticipated Discharge Date Admission Date: October 08, 2024 Review of Systems Review of Systems: All systems reviewed are negative, apart from the ones contained in the history. Physical Exam Physical Exam: The patient is awake, alert and oriented 3, well developed and well nourished, normocephalic and atraumatic, lying in bed and in no acute distress. HEENT--PERRL, EOMI, mucous membranes and oropharynx mildly dry Neck--supple. No JVD. No bruits. Thyroid normal, trachea midline, no adenopathy. Heart--normal S1 and S2. No murmurs, rubs or gallops. Lungs--clear bilaterally, no respiratory distress, no accessory muscle use. Abdomen--normal bowel sounds and soft. Extremities--no cyanosis or clubbing. No edema. Dermatologic--normal skin turgor, normal color, no abnormal lymph nodes, no rash. Neurologic--cranial nerves II through XII grossly intact. Rheumatologic--normal range of motion. Psychiatric--normal affect. Results & Data Results & Data Vital Signs (Past 12 Hours) Vital Signs Temp Pulse Pulse Resp BP Pulse Ox O2 Del Method 10/10/24 07:50 97.5 F L 58 L 18 108/66 95 Nasal Cannula 10/10/24 07:38 59 L 15 94 Nasal Cannula 10/10/24 06:28 59 L 10/10/24 02:33 98.1 F 74 18 117/65 95 Nasal Cannula 10/09/24 23:08 97.9 F 76 20 110/59 L 94 Nasal Cannula O2 Flow Rate 10/10/24 07:50 10/10/24 07:38 2 10/10/24 06:28 10/10/24 02:33 1.5 10/09/24 23:08 1.5 PG Care Time/CCT Total # of Minutes Spent Total Time Spent with Patient: Total time spent is greater than 50% in coordination of care (as documented) at patient's floor/unit and/or counseling patient: Coding Level of Care Code 76480 SUB INP/OBS CARE 2/35MIN Diagnoses Acute exacerbation of chronic obstructive pulmonary disease (COPD) J44.1 Acute hypoxic respiratory failure J96.01 Diabetes mellitus, type II E11.65 Diabetes mellitus complication status: with hyperglycemia Diabetes mellitus chcf insulin use: unspecified terminal gauger insulin use status CKD (chronic kidney disease) stage 3, GFR 30-59 ml/min N18.30 Chronic kidney disease stage 3 subtype: unspecified whether 3a or 3b Time Spent (min) 35 (3) Diabetes mellitus, type II Diabetes mellitus complication status: with hyperglycemia Diabetes mellitus terminal gauger insulin use: unspecified chcf insulin use status Qualified Code(s): E11.65 - Type 2 diabetes mellitus with hyperglycemia (4) CKD (chronic kidney disease) stage 3, GFR 30-59 ml/min Chronic kidney disease stage 3 subtype: unspecified whether 3a or 3b Qualified Code(s): N18.30 - Chronic kidney disease, stage 3 unspecified
--- NOTE | 2024-10-10 14:52 | Pharmacy Report ---
Pharmacy Glycemic Short Note 2 - Date of Service October 10, 2024 - Glycemic Short BSG Results (Last 24 hours): 10/09/24 10/09/24 10/09/24 17:16 20:03 22:08 Glucose POC Glucose 237 H 279 H 210 H 10/10/24 10/10/24 10/10/24 00:07 04:10 08:16 Glucose 192 H POC Glucose 280 H 229 H 10/10/24 10/10/24 08:28 12:33 Glucose POC Glucose 191 H 230 H OUTPATIENT ANTIDIABETIC REGIMEN: * Dapagliflozin * Glipizide * Sitagliptin * HbA1c 7.3% on 09/18/24 ASSESSMENT: 10/10/24 * Pt remains hyperglycemic today, despite insulin adjustments/additions yesterday. * Novolog parameters adjusted slightly to provide additional carb coverage * Steroids adjusted today: SoluMedrol 40mg IV daily --> prednisone 20mg daily. Tomorrow prednisone 20mg daily --> prednisone 40mg daily. * Will continue to utilize NPH for steroid coverage, especially given the frequent adjustments in dose. * Will provide supplemental dose this afternoon, as BSGs remain elevated pre- lunch. * Pharmacy will continue to monitor and adjust regimen as indicated, exercising caution in the setting of frequent steroid adjustments. 10/09/24 * 79 yo M w T2DM admitted w COPD exacerbation and started on steroids. BSG's originally reasonable, but climbed after steroid administration * Methylpred ordered once daily in AM - will therefore use NPH as basal insulin * Will tighten Novolog to weight-based moderate stress estimate for now and adjust based on BSG trend ongoing PLAN FOR INPATIENT GLYCEMIC CONTROL: * Hold outpatient oral diabetes medications * Basal insulin * NPH 20 units SQ x1 this AM * NPH 10 units SQ x1 this PM for elevated BSGs * will re-evaluate dosing tomorrow morning * Bolus insulin * NovoLog per scale ACHS or Q6hrs while NPO * Goal Range: Low 110 mg/dL - High 140 mg/dL * Correction Factor: 20 mg/dL/unit * Nutritional / Prandial insulin per carb ratio of 1 unit per 6 grams CHO consumed
[2024-10-11] MEDS: INSULIN ASPART PER UNIT CHARGE SC STA (02:50)
[2024-10-11] MEDS: predniSONE 20 MG TAB PO SCH (07:38)
--- NOTE | 2024-10-11 08:25 | Hospitalist Progress Note ---
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 Patient stated he has a questionable history of COPD, no official diagnosis as PFTs in August were inconclusive. He was recently discharged 09/20/2024 due to COPD exacerbation on a 3-day course of azithromycin and prednisone taper. Patient stated he was doing better but over the past few days developed dyspnea on exertion along with chest tightness and a cough. He was being admitted for COPD exacerbation. CXR without acute disease, chest CTA with paraseptal emphysema appreciated bilaterally especially in the upper lobes per pulmonology. 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 - Added 7% saline nebulizer for chest congestion - Continue 5 day course of doxycycline, last day 10/13/24 - Continue prednisone 40 mg x 5 days, last day 10/15/24 - Continue montelukast 10 mg HS - Continue Budesonide and Perforomist nebs - Would benefit from inhalers like Advair HFA, Symbicort, Dulera, Breztri at home. Will defer to pulm for recs on discharge - RAST/IgE studies sent out/pending #T2DM - Controlled on Farxiga (recently started and metformin was discontinued), glipizide, and sitagliptin; held - Lantus with SSI while inpatient - Pharmacy glycemic consult with IV steroid use #CKD stage 3 - Baseline creatine ~1.6, Cr currently elevated above baseline at 1.80 - Will give 500 cc NSS x 1 now - Lisinopril held 10/11 - did receive dose today - Holding Farxiga as not on formulary; recently changed to Farxiga and discontinued metformin by nephrology outpatient has thought to be contributing to frequent GEOVANNI's - Continue K+ 20 mEq BID - Avoid nephrotoxic agents. Promote oral hydration #Hypertension - Chronic, stable - Continue amlodipine, metoprolol, and aspirin; lisinopril on hold - Most recent BP 128/68 Chronic stable diagnoses: B12 deficiency - continue supplement HLD - continue statin insomnia - continue trazodone VTE ppx: SCDs - low risk Dispo: Hopefully d/c when ok with Pulm Admission and Anticipated Discharge Date Admission Date: October 08, 2024 Supervising Physician Co-Signing Physician Notes Attending Attestation - Chart reviewed, care plan d/w WENDY Razo. I agree w/ the philippe components of her documentation. Nick Velazco MD Subjective Patient seen and evaluated at bedside. He reports his breathing feels better today compared to yesterday; he is stable on room air today. He states his dry non-productive cough is his biggest complaint at this time. He reports he slept poorly last night due to his persistent cough. We discussed his Lisinopril and he stated he has been taking this for awhile and has never had nagging dry cough previously. Reinforced the plan put in place by pulm. He denies any additional complaints or concerns at this time. Physical Exam Physical Exam: General: No acute distress, nondiaphoretic, well-developed, well-nourished. Cardiac: Regular rate and rhythm without murmurs gallops or rubs. Pulm: Expiratory wheeze throughout all lung mcbride. Diminished breath sounds throughout secondary to poor inspiratory effort. Crackles in LLL. No respiratory distress. 95% on room air. Abdominal: Soft, nontender, distended secondary to body habitus. Bowel sounds present. Neuro: A&O x3. No focal neurological deficits. Results & Data Results & Data Vital Signs (Past 12 Hours) Vital Signs Temp Pulse Pulse Resp BP Pulse Ox O2 Del Method 10/11/24 08:05 61 18 95 Room Air 10/11/24 07:53 97.5 F L 57 L 20 128/68 93 Room Air 10/11/24 05:54 60 10/11/24 04:02 97.9 F 60 16 134/70 92 Room Air 10/11/24 03:37 Room Air 10/10/24 23:23 97.3 F L 66 20 116/57 L 91 Room Air 10/10/24 21:57 63 Laboratory Results Reviewed BMP Reviewed sputum culture PG Care Time/CCT Total # of Minutes Spent Total Time Spent with Patient: Total time spent is greater than 50% in coordination of care (as documented) at patient's floor/unit and/or counseling patient: Coding Level of Care Code 56828 SUB INP/OBS CARE 50MIN Diagnoses Acute exacerbation of chronic obstructive pulmonary disease (COPD) J44.1 Acute hypoxic respiratory failure J96.01 Diabetes mellitus, type II E11.65 Diabetes mellitus complication status: with hyperglycemia Diabetes mellitus terminal 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 insulin use: unspecified fci insulin use status CKD (chronic kidney disease) stage 3, GFR 30-59 ml/min N18.30 Chronic kidney disease stage 3 subtype: unspecified whether 3a or 3b Hypertension I10 Hypertension type: unspecified (3) Diabetes mellitus, type II Diabetes mellitus complication status: with hyperglycemia Diabetes mellitus fci insulin use: unspecified fci insulin use status Qualified Code(s): E11.65 - Type 2 diabetes mellitus with hyperglycemia (4) CKD (chronic kidney disease) stage 3, GFR 30-59 ml/min Chronic kidney disease stage 3 subtype: unspecified whether 3a or 3b Qualified Code(s): N18.30 - Chronic kidney disease, stage 3 unspecified (5) Hypertension Hypertension type: unspecified Qualified Code(s): I10 - Essential (primary) hypertension
[2024-10-11 08:52] LABS: BUN Creatinine Ratio 23.9 (10-20); Calcium 9.2 mg/dl (8.6-10.3); Creatinine Clr Calc Pharmacy 34.2 ml/min; Potassium 4.6 mmol/L (3.5-5.1)
[2024-10-11] MEDS: INSULIN HUMAN NPH SC SCH ×2 (08:57→17:52)
[2024-10-11] MEDS: SODIUM CHLORIDE 0.9% 500 ML IV SCH (11:10)
--- NOTE | 2024-10-11 11:15 | Pulmonology Progress Note ---
Date of Service October 11, 2024 Assessment & Plan (1) Asthma-COPD overlap syndrome: (2) Peripheral eosinophilia: (3) Alveolar emphysema of lung: (4) CHRISTIAN (obstructive sleep apnea): (5) Ex-smoker: Plan CT chest 10/08/2024 personally reviewed: Paraseptal emphysema appreciated bilaterally especially in the upper lobes Motion degraded study Examined the lower lobes No significant mediastinal lymphadenopathy PFT 08/13/2024 personally reviewed: No obstructive lung dysfunction, insignificant bronchodilator response, mild decrease in DLCO FVC 2.28 L 91%, FEV1 1.89 L 110%, FEV1/FVC 83, ERV 52%, DLCO 65% 2D echo 08/14/2023: EF 65-70%, mild concentric LVH, RV not well-visualized --Asthma-COPD overlap syndrome/pulmonary emphysema with peripheral eosinophilia Only 51-qssl-fjbv smoking history Quit in his 20s Not on any inhalers at home Procalcitonin 0.07 Respiratory BioFire negative for everything on 10/08/2024 BNP 28 Absolute eosinophil count 570 on 10/08/2024, as high as 1090 on 09/17/2024 I think patient has a combination of asthma-COPD overlap syndrome On the PFT unfortunately I was not get the value of TLC. There might be a component of restriction from his BMI that is why his obstructive function seems to be subdued from restrictive pattern. --Chronic cough I do think allergic rhinitis with postnasal drip is playing a role Acute exacerbation of asthma-COPD overlap syndrome Denies any reflux-like symptoms right now. He is also on lisinopril 10 mg which has been associated with chronic cough, if the patient's cough does not improve with the measures that we are taking then would recommend lisinopril to be changed to some other blood pressure medication --CHRISTIAN Unable to tolerate CPAP Plan: Complete 5 days of doxycycline Absolute eosinophil count 570 on 10/08/2024, continue with montelukast Follow-up alpha-1 level and RAST panel with IgE Continue with prednisone to 40 mg as of tomorrow Will benefit from inhalers like Advair HFA, Symbicort or Dulera at home. BrezTri can also be thought of. Continue with budesonide and Perforomist nebulized while in the hospital Given that the patient is complaining of chest congestion, I will add 7% saline nebulized to patient's regimen Case was discussed with RN at bedside Please note the above document was generated using voice recognition software. It may contain grammatical, syntax or spelling errors.Any formal questions or concerns about the content, text or information contained within the body of this dictation should be directly addressed to the provider for clarification. Admission and Anticipated Discharge Date Admission Date: October 08, 2024 Subjective Patient seen and examined at bedside. No acute distress, no AutoSense overnight He was saturating well on room air He stated that his breathing has improved Still complaining of cough which is worse when he is sitting or taking a deep breath in. Not able to bring any phlegm up. Complains of mild chest congestion Fair appetite, no nausea or vomiting Denies any headache or blurry vision Review of Systems 2 Review of Systems: All systems reviewed & are unremarkable except as noted in Subjective Physical Exam 2 Physical Exam: Constitutional: No acute distress HEENT: EOMI, PERRLA, short thick neck Respiratory system: Good air entry bilaterally, minimal expiratory wheeze bilaterally(improved from before), no rhonchi, positive crackles appreciated bilaterally more on the left side, questionable Velcro CVS: S1-S2 positive, no murmurs or gallops Abdomen: Soft, nontender, nondistended, positive bowel sounds x4, obese Extremities: +2 pulses bilaterally radialis/ dorsalis pedis, no cyanosis, minimal pitting edema bilateral lower extremity Neuro: Awake alert oriented x3 Psych: Normal mood and affect G/U: No Hendrix Skin: no rashes, warm and dry Lymphatic: no cervical or axillary lymphadenopathy Results & Data Results & Data Vital Signs (Past 12 Hours) Vital Signs Temp Pulse Pulse Resp BP Pulse Ox O2 Del Method 10/11/24 08:05 61 18 95 Room Air 10/11/24 07:53 36.4 C L 57 L 20 128/68 93 Room Air 10/11/24 05:54 60 10/11/24 04:02 36.6 C 60 16 134/70 92 Room Air 10/11/24 03:37 Room Air 10/10/24 23:23 36.3 C L 66 20 116/57 L 91 Room Air Laboratory Results 10/10/24 08:16 10/11/24 08:19 PG Care Time/CCT Total # of Minutes Spent Total Time Spent with Patient: Total time spent is greater than 50% in coordination of care (as documented) at patient's floor/unit and/or counseling patient: Coding Level of Care Code 86218 SUB INP/OBS CARE MIN Diagnoses Asthma-COPD overlap syndrome J44.89 Peripheral eosinophilia D72.19 Alveolar emphysema of lung J43.1 CHRISTIAN (obstructive sleep apnea) G47.33 Ex-smoker Z87.891
--- NOTE | 2024-10-11 13:52 | Pharmacy Report ---
Pharmacy Glycemic Short Note 2 - Date of Service October 11, 2024 - Glycemic Short BSG Results (Last 24 hours): 10/10/24 10/10/24 10/11/24 17:03 20:13 02:46 Glucose POC Glucose 226 H 223 H 206 H 10/11/24 10/11/24 10/11/24 08:11 08:19 12:14 Glucose 151 H POC Glucose 155 H 210 H OUTPATIENT ANTIDIABETIC REGIMEN: * Dapagliflozin 10 mg PO daily * Glipizide 10 mg PO BID * Sitagliptin 50 mg PO daily * HbA1c 7.3% on 09/18/24 ASSESSMENT: 10/11: * Received 81 units of insulin yesterday, 30 of which were NPH. BSGs above goal: [phone] mg/dL. Remains on Prednisone 40 mg PO daily and antibiotics for pulmonary infection. * Fasting BSG improved to 155 mg/dL this AM. However, this is still above goal and to help with steroid-induced hyperglycemia, will increase NPH dosing significantly today. * Novolog was tightened to weight/stress of 3 this AM given BSGs all above goal yesterday. Lunchtime BSG still above 200 mg/dL today. 10/10: * Pt remains hyperglycemic today, despite insulin adjustments/additions yesterday. * Novolog parameters adjusted slightly to provide additional carb coverage * Steroids adjusted today: SoluMedrol 40mg IV daily --> prednisone 20mg daily. Tomorrow prednisone 20mg daily --> prednisone 40mg daily. * Will continue to utilize NPH for steroid coverage, especially given the frequent adjustments in dose. * Will provide supplemental dose this afternoon, as BSGs remain elevated pre- lunch. * Pharmacy will continue to monitor and adjust regimen as indicated, exercising caution in the setting of frequent steroid adjustments. 10/09: * 79 yo M w T2DM admitted w COPD exacerbation and started on steroids. BSG's originally reasonable, but climbed after steroid administration * Methylpred ordered once daily in AM - will therefore use NPH as basal insulin * Will tighten Novolog to weight-based moderate stress estimate for now and adjust based on BSG trend ongoing PLAN FOR INPATIENT GLYCEMIC CONTROL: * Hold outpatient oral diabetes medications * Basal insulin * NPH 30 units SC with breakfast * NPH 20 units SC with dinner * Bolus insulin * NovoLog per scale ACHS or Q6hrs while NPO * Goal Range: Low 110 mg/dL - High 140 mg/dL * Correction Factor: 15 mg/dL/unit * Nutritional / Prandial insulin per carb ratio of 1 unit per 5 grams CHO consumed
[2024-10-11] MEDS: SODIUM CHLOR 7% 4 ML NEB NEB SCH (20:03)
[2024-10-12 06:52] LABS: BUN Creatinine Ratio 26.9 (10-20); Creatinine Clr Calc Pharmacy 40.6 ml/min; Potassium 4.2 mmol/L (3.5-5.1)
[2024-10-12 07:34] VITALS: RESP 18
[2024-10-12 12:01] VITALS: BP 134/81; TEMP 97.7; O2SAT 92
--- NOTE | 2024-10-12 12:23 | Pulmonology Progress Note ---
Date of Service October 12, 2024 Assessment & Plan (1) Asthma-COPD overlap syndrome: (2) Peripheral eosinophilia: (3) Alveolar emphysema of lung: (4) CHRISTIAN (obstructive sleep apnea): (5) Ex-smoker: Plan CT chest 10/08/2024 personally reviewed: Paraseptal emphysema appreciated bilaterally especially in the upper lobes Motion degraded study Examined the lower lobes No significant mediastinal lymphadenopathy PFT 08/13/2024 personally reviewed: No obstructive lung dysfunction, insignificant bronchodilator response, mild decrease in DLCO FVC 2.28 L 91%, FEV1 1.89 L 110%, FEV1/FVC 83, ERV 52%, DLCO 65% 2D echo 08/14/2023: EF 65-70%, mild concentric LVH, RV not well-visualized --Asthma-COPD overlap syndrome/pulmonary emphysema with peripheral eosinophilia Only 30-pzdw-bpno smoking history Quit in his 20s Not on any inhalers at home Procalcitonin 0.07 Respiratory BioFire negative for everything on 10/08/2024 BNP 28 Absolute eosinophil count 570 on 10/08/2024, as high as 1090 on 09/17/2024 I think patient has a combination of asthma-COPD overlap syndrome On the PFT unfortunately I was not get the value of TLC. There might be a component of restriction from his BMI that is why his obstructive function seems to be subdued from restrictive pattern. --Chronic cough I do think allergic rhinitis with postnasal drip is playing a role Acute exacerbation of asthma-COPD overlap syndrome Denies any reflux-like symptoms right now. He is also on lisinopril 10 mg which has been associated with chronic cough, if the patient's cough does not improve with the measures that we are taking then would recommend lisinopril to be changed to some other blood pressure medication --CHRISTIAN Unable to tolerate CPAP Plan: Complete 5 days of doxycycline Absolute eosinophil count 570 on 10/08/2024, continue with montelukast Follow-up alpha-1 level and RAST panel with IgE Prednisone 40 mg for 4 more days and then stop Will benefit from inhalers like Advair HFA, Symbicort or Dulera at home. BrezTri can also be thought of. Continue with budesonide and Perforomist nebulized while in the hospital Continue with 7% saline nebulized No further recommendation from pulmonary perspective, will sign off Please call directly with any questions Please note the above document was generated using voice recognition software. It may contain grammatical, syntax or spelling errors.Any formal questions or concerns about the content, text or information contained within the body of this dictation should be directly addressed to the provider for clarification. Admission and Anticipated Discharge Date Admission Date: October 08, 2024 Subjective Patient seen and examined at bedside. No acute distress, no adverse events overnight He was saturating well on room air Breathing canas he said he is doing better He still complains of cough especially when he is sleeping at night. No nausea vomiting Fair appetite Review of Systems 2 Review of Systems: All systems reviewed & are unremarkable except as noted in Subjective Physical Exam 2 Physical Exam: Constitutional: No acute distress HEENT: EOMI, PERRLA, short thick neck Respiratory system: Good air entry bilaterally, no wheeze no rhonchi, mild crackles bilateral lower lobes, improved from before CVS: S1-S2 positive, no murmurs or gallops Abdomen: Soft, nontender, nondistended, positive bowel sounds x4, obese Extremities: +2 pulses bilaterally radialis/ dorsalis pedis, no cyanosis, minimal pitting edema bilateral lower extremity Neuro: Awake alert oriented x3 Psych: Normal mood and affect G/U: No Hendrix Skin: no rashes, warm and dry Lymphatic: no cervical or axillary lymphadenopathy Results & Data Results & Data Vital Signs (Past 12 Hours) Vital Signs Temp Pulse Resp BP BP Pulse Ox O2 Del Method 10/12/24 12:00 36.5 C 85 18 134/81 92 Room Air 10/12/24 07:48 79 18 162/84 H 95 Room Air 10/12/24 07:33 74 18 94 Room Air 10/12/24 03:40 36.6 C 80 16 149/76 H 94 Room Air FiO2 10/12/24 12:00 10/12/24 07:48 10/12/24 07:33 21 10/12/24 03:40 Laboratory Results 10/10/24 08:16 10/12/24 05:23 PG Care Time/CCT Total # of Minutes Spent Total Time Spent with Patient: Total time spent is greater than 50% in coordination of care (as documented) at patient's floor/unit and/or counseling patient: Coding Level of Care Code 93889 SUB INP/OBS CARE 2/35MIN Diagnoses Asthma-COPD overlap syndrome J44.89 Peripheral eosinophilia D72.19 Alveolar emphysema of lung J43.1 CHRISTIAN (obstructive sleep apnea) G47.33 Ex-smoker Z87.891
--- NOTE | 2024-10-12 12:46 | Pharmacy Report ---
Pharmacy Glycemic Short Note 2 - Date of Service October 12, 2024 - Glycemic Short BSG Results (Last 24 hours): 10/11/24 10/11/24 10/12/24 17:07 20:16 05:23 Glucose 120 H POC Glucose 165 H 209 H 10/12/24 10/12/24 08:20 12:28 Glucose POC Glucose 90 102 H OUTPATIENT ANTIDIABETIC REGIMEN: * Dapagliflozin 10 mg PO daily * Glipizide 10 mg PO BID * Sitagliptin 50 mg PO daily * HbA1c 7.3% on 09/18/24 ASSESSMENT: 10/12: * Received 105 units of insulin yesterday, 50 was NPH. BSGs were [phone] mg/dL. Remains on Prednisone 40 mg daily. * Fasting BSG 90 mg/dL this AM. RN held NPH dose. Lunchtime BSG 102 mg/dL. * Hold NPH this AM. Start scaled dose at dinner. Loosened Novolog. 10/11: * Received 81 units of insulin yesterday, 30 of which were NPH. BSGs above goal: [phone] mg/dL. Remains on Prednisone 40 mg PO daily and antibiotics for pulmonary infection. * Fasting BSG improved to 155 mg/dL this AM. However, this is still above goal and to help with steroid-induced hyperglycemia, will increase NPH dosing significantly today. * Novolog was tightened to weight/stress of 3 this AM given BSGs all above goal yesterday. Lunchtime BSG still above 200 mg/dL today. 10/10: * Pt remains hyperglycemic today, despite insulin adjustments/additions yesterday. * Novolog parameters adjusted slightly to provide additional carb coverage * Steroids adjusted today: SoluMedrol 40mg IV daily --> prednisone 20mg daily. Tomorrow prednisone 20mg daily --> prednisone 40mg daily. * Will continue to utilize NPH for steroid coverage, especially given the frequent adjustments in dose. * Will provide supplemental dose this afternoon, as BSGs remain elevated pre- lunch. * Pharmacy will continue to monitor and adjust regimen as indicated, exercising caution in the setting of frequent steroid adjustments. 10/09: * 79 yo M w T2DM admitted w COPD exacerbation and started on steroids. BSG's originally reasonable, but climbed after steroid administration * Methylpred ordered once daily in AM - will therefore use NPH as basal insulin * Will tighten Novolog to weight-based moderate stress estimate for now and adjust based on BSG trend ongoing PLAN FOR INPATIENT GLYCEMIC CONTROL: * Hold outpatient oral diabetes medications * Basal insulin * NPH 0-10 units SC BIDM (see eMAR for more details) * Bolus insulin * NovoLog per scale ACHS or Q6hrs while NPO * Goal Range: Low 110 mg/dL - High 140 mg/dL * Correction Factor: 20 mg/dL/unit * Nutritional / Prandial insulin per carb ratio of 1 unit per 7 grams CHO consumed
[2024-10-12 14:32] VITALS: PULSE 71
--- NOTE | 2024-10-12 15:54 | Discharge Summary ---
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 Patient has a questionable history of COPD, no official diagnosis as PFTs in August were inconclusive. He was recently discharged 09/20/2024 due to COPD exacerbation on a 3-day course of azithromycin and prednisone taper. Patient stated he was doing better but over the past few days developed dyspnea on exertion along with chest tightness and a cough. He was being admitted for COPD exacerbation. CXR without acute disease, chest CTA with paraseptal emphysema appreciated bilaterally especially in the upper lobes per pulmonology. Patient was treated with antibiotic, steroids, 7% saline nebulizer, budesonide and Perforomist nebulizers while inpatient with significant improvement in his respiratory status. 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 - Complete 5 day course of doxycycline 100 mg BID, last day 10/13/24 - Continue prednisone 40 mg daily x 4 additional days, last day 10/16/24 - Continue montelukast 10 mg HS - Started BrezTri 2 inhalations BID on discharge - RAST/IgE studies sent out/pending - defer to outpatient providers to follow-up on - Follow-up with PCP/pulmonology outpatient #T2DM - Controlled on Farxiga (recently started and metformin was discontinued), glipizide, and sitagliptin; held while inpatient, resumed on discharge - Lantus with SSI while inpatient -- Pharmacy glycemic consult with IV steroid use #CKD stage 3 - Baseline creatine ~1.6, GEOVANNI now resolved after IV fluids Cr returned to baseline 1.60 on day of discharge - Recently changed to Farxiga and discontinued metformin by nephrology outpatient has thought to be contributing to frequent GEOVANNI's - Continue K+ 20 mEq BID #Hypertension - Chronic, stable - Continue amlodipine, metoprolol, lisinopril and aspirin Chronic stable diagnoses: B12 deficiency - continue supplement HLD - continue statin insomnia - continue trazodone Dispo: Discharged home 10/12/2024 Notes For Next Care Provider Per pulmonology, suspect asthma COPD overlap syndrome Medication Changes From Visit Started BrezTri 2 inhalations twice daily Started montelukast 10 mg at bedtime Finish 5-day course of doxycycline twice daily Continue prednisone 40 mg daily x 4 additional days Admission HPI Per Admitting Provider Patient is a 79-year-old male with past medical history of COPD, CKd stage III, T2DM, hyperlipidemia, hypertension, 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 He was recently discharged 09/20/2024 due to COPD exacerbation on a 3-day course of azithromycin and prednisone taper. Patient stated he was doing better but over the past few days developed dyspnea on exertion along with chest tightness and a cough. He is being admitted for COPD exacerbation. Patient seen at bedside. He is requiring 2L NC due to hypoxia. He uses 2L NC at bedtime at home but not typically during the day. Over the last few days he has been using intermittently for 1 to 2 hours as needed when he develops dyspnea, he stated his oxygen sats been around 83% when he checks. He uses oxygen to let up trended to 92%. He stated he does have sputum production, it is clear/yellow. He stated it is possible he has a sinus infection because he gets frequent sinus infections. Patient stated he has questionable COPD. He was told he has COPD hospitalized here, but PCP stated that he does not have. [facility] stated results of DLCO testing are questionable due to patient's inability to perform the maneuvers according to the ATS standards. Patient would like to establish care with [facility] fitness centre manager, was trying to arrange outpatient appointment but has not yet been set up. Would like to see pulmonology during inpatient stay; consulted. He does not use inhalers at baseline. He did state that treatment during recent hospitalization did help but symptoms. Discussing noted albuterol allergy, patient stated he never had an allergy to this and has used many times with no reaction. Albuterol was removed from his allergy list. Patient stated he completed the prednisone taper. Patient denies fever, chills, dizziness, lightheadedness, abdominal pain, nausea, vomiting, diarrhea. He stated his chest tightness is due to dyspnea and denies chest pain. During recent hospitalization he was found to have an GEOVANNI and lisinopril was held. When he followed up with nephrology about 1 week ago, he was told to resume lisinopril. Renal function is improved on admission. He also recently discontinued metformin as thought to be contributing to frequent GEOVANNI's, he was started on Farxiga. He was a former smoker, denies current smoking. He does not drink alcohol. He did take his morning medications but is due for evening medications. He wishes to be DNR/DNI at this time. Discharge Exam General: No acute distress, nondiaphoretic, well-developed, well-nourished. Cardiac: Regular rate and rhythm without murmurs gallops or rubs. Pulm: Much better air entry bilaterally. Clear breath sounds throughout all lung mcbride, no further expiratory wheeze, crackles, or rhonchi. Normal respiratory effort. 92% on room air. Abdominal: Soft, nontender, distended secondary to body habitus. Bowel sounds present. Neuro: A&O x3. No focal neurological deficits. Discharge Plan Discharge Items Patient Disposition: Home - Self-Care Reason For Visit: COPD EXACERBATION Discharge Diagnosis: Asthma COPD overlap syndrome Activity: Resume your previous activity Non-emergency contact: Primary Care Provider and Metallographic Technician Call non-emergency contact if: you have any medication questions and your symptoms worsen Follow-up/Referrals: Juanita Carlson PA-C [Primary Care Provider] - Diet: Carb Consistent or DM2 Addtl Attending Provider Instructions: Mr. Uriarte, You were admitted to the hospital due to shortness of breath with chest tightness and a cough. You were evaluated by pulmonology who felt this seems to be due to asthma-COPD overlap syndrome. You were treated with IV steroids, antibiotics, and breathing treatments while in the hospital. You we will continue some ongoing treatment at home. Upon discharge from the hospital: * Take doxycycline (oral antibiotic) twice daily x 1 additional day. This will complete 5-day total course. * Take prednisone (oral steroid) 40 mg daily x 4 additional days. * Use Breztri inhaler 2 puffs twice daily. * Take montelukast 10 mg daily at bedtime. * Take Protonix 40 mg daily. This is to help with GERD symptoms that may be contributing to your chronic dry cough. * Continue your other home medications as prescribed. * Follow-up with your PCP and specialists as scheduled. Please return to the hospital if you experience any of the following: Shortness of breath, difficulty breathing, chest pain, heart palpitations, dizziness, passing out, confusion, or any other symptoms concerning for you. It was a pleasure taking care of you while you were in the hospital! Pending Studies at Discharge: Yes Studies:: RAST, IgE, alpha 1 antitrypsin Stand-Alone Forms: [facility], Smoking Cessation Medications and DC Order Prescriptions: New doxycycline hyclate 100 mg Capsule 100 mg PO BID Qty: 2 0RF pantoprazole 40 mg Tablet,Delayed Release (Dr/Ec) 40 mg PO QAM Qty: 30 0RF montelukast 10 mg Tablet 10 mg PO HS Qty: 30 0RF prednisone 20 mg tablet 40 mg PO DAILY 4 Days Qty: 8 0RF Breztri Aerosphere 160-9-4.8 mcg/actuation HFA aerosol inhaler 2 inh inhalation BID Qty: 10.7 0RF Continued cetirizine 10 mg tablet 10 mg PO DAILY aspirin 81 mg tablet,delayed release (DR/EC) 81 mg PO DAILY dapagliflozin propanediol [Farxiga] 10 mg tablet 10 mg PO DAILY Qty: 90 3RF cholecalciferol (vitamin D3) 2,000 unit Capsule 2,000 unit PO QAM pravastatin 40 mg Tablet 40 mg PO HS potassium chloride 20 mEq Tablet Extended Release 20 meq PO BID cyanocobalamin (vitamin B-12) [Vitamin B-12] 500 mcg Tablet 500 mcg PO Q OTHER DAY trazodone 50 mg Tablet 50 mg PO HS PRN (Reason: Sleep) glipizide 10 mg Tablet 10 mg PO BID acetaminophen 500 mg Tablet 500 mg PO Q6H PRN (Reason: Pain) lisinopril 10 mg Tablet 10 mg PO DAILY Hold Instructions: Resume on 09/27/24. until seen by PCP metoprolol tartrate 50 mg Tablet 25 mg PO BID dexamethasone 0.5 mg Tablet 0 mg PO DAILY Hold Instructions: Resume on 09/27/24. until seen by PCP. You will be on prednisone taper in the meantime Rx Instructions: On list from [facility] as outside med. No verification on last fill date. Original Directions: 1mg by mouth daily fluticasone propionate 50 mcg/actuation spray,suspension 2 spray INTRANASAL BID sitagliptin 50 mg Tablet 50 mg PO DAILY amlodipine 5 mg tablet 5 mg PO BID Discontinued prednisone 10 mg tablet 10 mg PO DIRECTED Qty: 22 0RF Rx Instructions: please take 4 tablet by mouth for 1 day followed by 3 tablets by mouth for 3 days followed by 2 tablets by mouth for 3 days followed by 1 tablet by mouth for 3 days. Discharge Orders: Discharge Order (Routine); Ordered 10/12/24 Ordered By: Isabel Razo Admission Data Admit Date/Time: 10/08/24 22:31 Attending Provider: Nick Velazco Admit Provider: Fransico Vazquez Primary Care Provider: Juanita Carlson Other Providers: Fransico Vazquez; Thalia Barnard; [facility] Other Interventions: Discharge Summary Assessment (RN) Last Done: 10/12/24 14:29 Hospital Stay Data Consultations 10/08/24 21:27 ED Decision to Admit Stat 10/09/24 07:00 Consult Pulmonology Routine Diagnostic Imagining Performed Chest X-Ray 10/08/24 15:42 EXAM: Radiograph of the Abdomen 1 View INDICATION: Chest pain. TECHNIQUE: Frontal supine view of the abdomen/pelvis. COMPARISON: 09/17/2024 FINDINGS: Limitations: None. Lower thorax: Stable interstitial scarring. Lungs and pleural spaces: No consolidation or pulmonary edema. No pleural effusion or pneumothorax. Gastrointestinal tract: Air scattered throughout non-dilated intestinal loops. Organs: Visualized organ shadows appear grossly normal. Bones/joints: No fracture, erosion or dislocation. Soft tissues: No abnormality noted. No radiopaque foreign body noted. IMPRESSION: Stable chronic changes. No acute disease. ACT 112: Negative or not required by law. Electronically signed by Judy Morris 10-08-2024 6:17 PM Chest CTA 10/08/24 18:27 Exam(s): CTA CHEST IV Amt: 119 ml opti 320 EXAM: CT Angiography Chest With Intravenous Contrast CLINICAL HISTORY: Reason for exam: PE. TECHNIQUE: Axial computed tomographic angiography images of the chest with intravenous contrast. CTDI is 35.62 mGy and DLP is 901.78 mGy-cm. Automated exposure control was utilized for the study. A dose lowering technique was utilized adhering to the principles of ALARA. MIP reconstructed images were created and reviewed. COMPARISON: CT 01/07/2024 FINDINGS: Pulmonary arteries: No pulmonary embolism. Aorta: No acute findings. Normal caliber. No dissection. Lungs: Scattered atelectasis. No consolidation or interstitial edema. Pleural space: No pleural effusion. No pneumothorax. Heart: Unremarkable. Bones/joints: No acute fracture. Soft tissues: Unchanged 2.8 cm mass in the left breast. Lymph nodes: Unremarkable. IMPRESSION: 1. No pulmonary embolism. 2. Unchanged 2.8 cm mass in the left breast. Electronically signed by: Niko Mai MD 10/08/24 21:07 PM Pending Results Patient Have Any Pending Studies at Discharge: Yes Discharge Instructions Given to Patient (Per Discharging Provider) Mr. Uriarte, You were admitted to the hospital due to shortness of breath with chest tightness and a cough. You were evaluated by pulmonology who felt this seems to be due to asthma-COPD overlap syndrome. You were treated with IV steroids, antibiotics, and breathing treatments while in the hospital. You we will continue some ongoing treatment at home. Upon discharge from the hospital: * Take doxycycline (oral antibiotic) twice daily x 1 additional day. This will complete 5-day total course. * Take prednisone (oral steroid) 40 mg daily x 4 additional days. * Use Breztri inhaler 2 puffs twice daily. * Take montelukast 10 mg daily at bedtime. * Take Protonix 40 mg daily. This is to help with GERD symptoms that may be contributing to your chronic dry cough. * Continue your other home medications as prescribed. * Follow-up with your PCP and specialists as scheduled. Please return to the hospital if you experience any of the following: Shortness of breath, difficulty breathing, chest pain, heart palpitations, dizziness, passing out, confusion, or any other symptoms concerning for you. It was a pleasure taking care of you while you were in the hospital! Total Time Total Time Spent Total Time Spent (In Minutes): Greater than 30 minutes spent completing this discharge process including direct patient care, medication reconciliation, documentation, review of labs and images, and coordination of care. Coding Level of Care Code 19106 INP/OBS DISCH >30 MIN Diagnoses Acute exacerbation of chronic obstructive pulmonary disease (COPD) J44.1 Acute hypoxic respiratory failure J96.01 Diabetes mellitus, type II E11.65 Diabetes mellitus complication status: with hyperglycemia Diabetes mellitus emt intermediate insulin use: unspecified fpc insulin use status CKD (chronic kidney disease) stage 3, GFR 30-59 ml/min N18.30 Chronic kidney disease stage 3 subtype: unspecified whether 3a or 3b Hypertension I10 Hypertension type: unspecified
[2024-10-12] MEDS ORDERED: INSULIN HUMAN NPH SC SCH (17:00)
[2024-10-12] MEDS ORDERED: PANTOprazole 40 MG TAB PO SCH (18:00)
[2024-10-13] MEDS ORDERED: INSULIN HUMAN NPH SC SCH (16:30)
== END 2024-10-12 15:08 | disposition home or self-care (01) | DRG 190 ==
LOC: ED 15:32 → SUATTDRO 22:31 → 2N 22:31

== ENCOUNTER 2024-10-28 09:46 | Inpatient (IN) ==
--- NOTE | 2024-10-28 10:07 | Emergency Department Note ---
Impression & Plan Acute dyspnea, Hypoxia, Sepsis, Leukocytosis, Acute kidney injury superimposed on chronic kidney disease, Elevated brain natriuretic peptide (BNP) level, Hypomagnesemia, Elevated lactic acid level ED Provider Note HISTORY OF PRESENT ILLNESS: Patient is a 79-year-old male presenting with shortness of breath. Patient reports that he has been having progressively worsening shortness of breath for the last 3 days. He states he had a cough productive of a yellow sputum. Patient wears 2 L nasal cannula at nighttime only and reports that he does not normally need any oxygen throughout the day. He denies any fevers at home. Denies any recent sick contact exposures that he is aware of. He denies any abdominal pain, nausea or vomiting. Denies any chest pain with the shortness of breath. He reports that he was started on antibiotic 3 days ago while in the emergency department. He called 911 secondary to his increasing shortness of breath this morning. On EMS arrival, the patient was found to be hypoxic on room air. They reported that the patient had rhonchi on examination and gave the patient 2 nebulizer treatments and 125 mg of Solu-Medrol prehospital. On arrival to the ER, the patient reports he has been unable to sleep for 3 days. He reports significant shortness of breath over the last 3 days, but worsening this morning. He is not on any anticoagulation therapy but is on an 81 mg aspirin daily. Denies any DVT or PE history. Denies any history of cardiac stents. ROS: as above PHYSICAL EXAM: Constitutional: Patient appears in no acute distress. HENT: Head: Normocephalic and atraumatic. Eyes: EOMI, PERRL Mouth/Throat: Mucous membranes moist. Neck: Trachea midline. Neck supple. Cardiovascular: Tachycardic with regular rhythm. No murmurs, rubs or gallops. Intact distal pulses. Pulmonary/Chest: No respiratory distress. Breath sounds clear and equal bilaterally. Conversationally dyspneic. Hypoxic to 88 to 89% on room air placed on 2 L nasal cannula. Abdominal: Abdomen soft, no tenderness, rebound or guarding. Musculoskeletal: No edema, tenderness or deformity noted. Skin: Warm and dry. No rash, erythema, pallor or cyanosis Psychiatric: Appropriate mood and affect for situation. Neurological: Alert and keenly responsive. CN II-XII grossly intact, moving all extremities equally and fully. MDM: - Vitals signs showed hypertension, tachycardia and fever. - History obtained via patient. History as above. - Chronic conditions affecting care: DM-2; HTN; HLD; COPD; CKD stage 3 - Differential diagnoses include, but are not limited to: Congestive heart failure; acute coronary syndrome; COPD/asthma exacerbation; pulmonary edema; pulmonary embolism; pneumonia; pneumothorax; viral syndrome - Order placed for continuous cardiac monitoring. At this time, monitor showed rate of 103 bpm with normal sinus rhythm, per my interpretation. - External medical records reviewed. Discharge summary dated 10/12/2024 was reviewed. Patient was admitted at that time for acute exacerbation of COPD. - EKG image interpreted by myself showed normal sinus rhythm. Rate tachycardic at 127 bpm. QT 316. No acute ischemic changes. However, noted to have an incomplete right bundle branch block. - Laboratory workup interpreted by myself showed leukocytosis (WBC 21.94) with neutrophil predominance; normal PT/INR; slight hyponatremia (Na 134); GEOVANNI on CKD (Cr 1.86); hyperglycemia (glucose 282); elevated lactate (2.9); hypomagnesemia (Mg 1.6); normal troponin; elevated BNP (159); normal procalcitonin - Blood cultures obtained - Viral respiratory panel negative - VBG grossly normal. - CXR image reviewed by myself is negative for pneumonia, per my interpretation. - UA ordered - Patient given 1.5L NS for sepsis fluid resuscitation. Patient's sepsis fluid volume calculation based on ideal body weight is 1936.20 mL. - Given 2g IV rocephin for antibiotic coverage. Given 1 g IV magnesium for electrolyte replacement. Given 1 g IV Tylenol for fever. - Discussion was had with disease case manager rn about patient's case and need for admission - Hospitalist consulted for admission - [facility] ASSESSMENT AND PLAN: Diagnosis: Acute dyspnea; sepsis; leukocytosis; GEOVANNI on CKD; hypomagnesemia; elevated BNP; elevated lactic acid level; hypoxia Plan: Admit Past Med/Surg History Problem List (Updated 10/28/24 @ 11:30 by Brea Storey MD) Elevated lactic acid level (Acute) Hypomagnesemia (Acute) Elevated brain natriuretic peptide (BNP) level (Acute) Acute kidney injury superimposed on chronic kidney disease (Acute) Leukocytosis (Acute) Sepsis (Acute) Hypoxia (Acute) Acute dyspnea (Acute) Contusion of left chest wall (Acute) Cough (Acute) Flu-like symptoms (Acute) Abrasion of knee, left (Acute) Chest wall contusion (Acute) Fall (Acute) Left-sided chest wall pain (Acute) Ex-smoker CHRISTIAN (obstructive sleep apnea) Alveolar emphysema of lung Peripheral eosinophilia Asthma-COPD overlap syndrome Hypoxia (Acute) Proteinuria Vitamin D deficiency Stage 3b chronic kidney disease Coronavirus infection (Acute) COPD (chronic obstructive pulmonary disease) (Acute) Lab test negative for COVID-19 virus (Acute) Cough (Acute) Hypoxemia (Acute) Bronchitis (Acute) Acute exacerbation of chronic obstructive pulmonary disease (COPD) 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 (Acute) COVID Left breast mass (Acute) Hypertension (Acute) Acute hypoxic respiratory failure Hyperlipidemia Diabetes mellitus, type II (Acute) CKD (chronic kidney disease) stage 3, GFR 30-59 ml/min (Acute) Substernal precordial chest pain (Acute) SOB (shortness of breath) (Acute) Mitral regurgitation Calculus of proximal left ureter (Acute) Hydronephrosis due to obstruction of ureter (Acute) Vision loss of left eye (Chronic) Medical History Hypoxic Pneumonia due to COVID-19 virus Hyperglycemia Leukocytosis Chest pain Acute kidney injury superimposed on CKD Cervical pain (neck) Pulmonary nodules Dyspnea on exertion Orthopnea Osteoarthritis Nephrolithiasis Surgical History Hx of cystoscopy STENT INSERTION AND NOW HAS CHRONIC PAIN IN LEFT LEG SINCE SURGERY H/O eye surgery RETINA REPAIR IN BOTH EYES Family History Father Congestive heart failure Mother Cancer Social History Smoking Status: Former smoker Tobacco Type: Cigarettes Second Hand Exposure: No; Do You Dip or Chew Tobacco: No; Hx Alcohol Use: No Hx Substance Use: No Preferred Language: Chadian Communication Ability: Effective Visual Impairment: Partially Limited Revenue Field Auditor Required: No Beliefs That Will Affect Care: None marital status: / Current Living Situation: Family current occupational status: retired How many Children do You have: 3 Feels Safe at Home: Yes Diet: diabetic during the past year weight has: remained stable Assistive Devices: Oxygen - Continuous Allergies Allergies Allergy/AdvReac Type Severity Reaction Status Date / Time Influenza Virus Vaccines Allergy Severe Shortness Verified 10/01/24 09:37 of breath ipratropium [From Combivent] Allergy Unknown On med Unverified 10/01/24 09:37 list from [facility] atorvastatin AdvReac Intermediate Cramping Verified 10/01/24 09:37 of the Muscles simvastatin AdvReac Intermediate Cramping Verified 10/01/24 09:37 of the Muscles Unknown antibiotic AdvReac visual Uncoded 10/01/24 09:37 disturbance/diarrhea Home Meds Home Medications Medication Instructions Recorded Confirmed cholecalciferol (vitamin D3) 50 2,000 unit PO QAM 09/20/18 10/28/24 mcg (2,000 unit) capsule pravastatin 40 mg tablet 40 mg PO HS 09/20/18 10/28/24 potassium chloride 20 mEq 20 meq PO BID 05/19/21 10/28/24 tablet,extended release aspirin 81 mg tablet,delayed 81 mg PO DAILY 06/20/21 10/28/24 release cetirizine 10 mg tablet 10 mg PO DAILY 06/20/21 10/28/24 cyanocobalamin (vitamin B-12) 500 500 mcg PO Q OTHER DAY 03/28/22 10/28/24 mcg tablet (Vitamin B-12) acetaminophen 500 mg tablet 500 mg PO Q6H PRN Pain 09/17/24 10/28/24 amlodipine 5 mg tablet 5 mg PO BID 09/17/24 10/28/24 dexamethasone 0.5 mg tablet 0 mg PO DAILY 09/17/24 10/28/24 fluticasone propionate 50 2 spray intranasal BID 09/17/24 10/28/24 mcg/actuation nasal spray,suspension glipizide 10 mg tablet 10 mg PO BID 09/17/24 10/28/24 lisinopril 10 mg tablet 10 mg PO DAILY 09/17/24 10/28/24 metoprolol tartrate 50 mg tablet 25 mg PO BID 09/17/24 10/28/24 sitagliptin 50 mg tablet 50 mg PO DAILY 09/17/24 10/28/24 trazodone 50 mg tablet 50 mg PO HS PRN Sleep 09/17/24 10/28/24 Previous Rx's Medication Instructions Recorded dapagliflozin propanediol 10 mg 10 mg PO DAILY #90 tabs 10/01/24 tablet (Farxiga) budesonide 160 mcg-glycopyr 9 2 inh inhalation BID #10.7 grams 10/12/24 mcg-formot 4.8 mcg/actuation HFA inhaler (Breztri Aerosphere) montelukast 10 mg tablet 10 mg PO HS #30 tabs 10/12/24 pantoprazole 40 mg tablet,delayed 40 mg PO QAM #30 tabs 10/12/24 release oxycodone 5 mg tablet 2.5 mg (1/2 x 5 mg) PO Q8H PRN 10/21/24 pain #10 tabs azithromycin 250 mg tablet See Rx Instructions PO .COMPLEX #6 10/25/24 (Zithromax Z-Noman) tabs Results & Data (ED) Vital Signs Vital Signs - 24 hr 10/28/24 09:32 10/28/24 09:32 10/28/24 09:32 Temperature 38.1 C H Temperature Source Oral Pulse Rate 127 H Pulse Rate from SpO2 Sensor Respiratory Rate 16 20 Blood Pressure 181/122 H Blood Pressure Mean 141 Pulse Oximetry 88 L Oxygen Delivery Method Room Air Oxygen Flow Rate Sepsis Recent Fever Within 48 Hours No Sepsis New/Unexplained Change in Mental Status N/A Sepsis Action Taken by Nursing Physician Notified Oxygen Flow Rate - Titration 2 Pulse Oximetry Post Tiitration 94 10/28/24 09:51 10/28/24 09:51 10/28/24 09:54 Temperature Temperature Source Pulse Rate Pulse Rate from SpO2 Sensor Respiratory Rate Blood Pressure 181/122 H 181/122 H Blood Pressure Mean 134 134 Pulse Oximetry 93 Oxygen Delivery Method Nasal Cannula Oxygen Flow Rate 2 Sepsis Recent Fever Within 48 Hours Sepsis New/Unexplained Change in Mental Status Sepsis Action Taken by Nursing Oxygen Flow Rate - Titration Pulse Oximetry Post Tiitration 10/28/24 10:00 10/28/24 10:00 10/28/24 10:08 Temperature Temperature Source Pulse Rate 111 H Pulse Rate from SpO2 Sensor Respiratory Rate Blood Pressure 126/82 126/82 Blood Pressure Mean 104 104 Pulse Oximetry Oxygen Delivery Method Oxygen Flow Rate Sepsis Recent Fever Within 48 Hours Sepsis New/Unexplained Change in Mental Status Sepsis Action Taken by Nursing Oxygen Flow Rate - Titration Pulse Oximetry Post Tiitration 10/28/24 10:12 10/28/24 11:00 Temperature Temperature Source Pulse Rate 124 H 104 H Pulse Rate from SpO2 Sensor 123 H Respiratory Rate 31 H 24 Blood Pressure 122/64 Blood Pressure Mean 93 Pulse Oximetry 91 91 Oxygen Delivery Method Nasal Cannula Oxygen Flow Rate 3 Sepsis Recent Fever Within 48 Hours Sepsis New/Unexplained Change in Mental Status Sepsis Action Taken by Nursing Oxygen Flow Rate - Titration Pulse Oximetry Post Tiitration Laboratory Data 10/28/24 10:07 10/28/24 10:07 Lab Results 10/28/24 10/28/24 10/28/24 Range/Units 10:00 10:07 10:15 WBC 21.94 H (4.8-10.8) K/ul RBC 4.95 (4.70-6.10) M/uL Hgb 15.2 (14.0-18.0) g/dl Hct 45.6 (42.0-52.0) % MCV 92.1 (80.0-100.0) fL MCH 30.7 (25.0-34.0) pg MCHC 33.3 (32.0-36.0) g/dL RDW Std Deviation 53.7 H (36.4-46.3) fL RDW Coeff of Mark 16.1 H (11.5-14.5) % Plt Count 174 (130-400) K/uL MPV 9.7 (9.4-12.4) fL Immature Gran % (Auto) 0.8 % Neut % (Auto) 84.7 % Lymph % (Auto) 9.8 % [place] % (Auto) 4.3 % Eos % (Auto) 0.1 % Baso % (Auto) 0.3 % Neut # (Auto) 18.57 H (1.40-6.50) K/uL Lymph # (Auto) 2.16 (1.20-3.40) K/uL [place] # (Auto) 0.95 H (0.11-0.59) K/uL Eos # (Auto) 0.03 (0.00-0.50) K/uL Baso # (Auto) 0.06 (0.00-0.20) K/uL Immature Gran # (Auto) 0.17 (0.01-0.20) K/uL PT 11.2 (9.0-12.0) Seconds INR 1.0 (0.9-1.1) VBG pH 7.38 (7.36-7.41) VBG pCO2 35 L (38-50) mmHg VBG pO2 44 mmHg VBG HCO3 21 mmol/L VBG O2 Saturation 75.6 % VBG Base Excess -3.8 mEq/L Sodium 134 L (136-145) mmol/L Potassium 4.5 (3.5-5.1) mmol/L Chloride 106 (98-107) mmol/L Carbon Dioxide 19 L (21-32) mmol/L Anion Gap 9 (3-11) BUN 18 (6-23) mg/dl Creatinine 1.86 H (0.6-1.4) mg/dl Est Cr Clr Drug Dosing 36.1 ml/min eGFR 36.36 BUN/Creatinine Ratio 9.7 L (10-20) Glucose 282 H (70-99(Fasting)) mg/dl Lactate 2.9 H* (0.4-2.0) mmol/L Calcium 8.8 (8.6-10.3) mg/dl Magnesium 1.6 L (1.7-2.4) mg/dl Total Bilirubin 1.3 H (0.2-1.0) mg/dl AST 12 L (13-39) U/L ALT 10 (7-52) U/L Alkaline Phosphatase 105 H (34-104) U/L Troponin I High Sens 12.0 (0-20) pg/ml B-Natriuretic Peptide 159 H (0-100) pg/ml Total Protein 6.6 (6.0-8.3) gm/dl Albumin 3.6 (3.4-5.0) gm/dl Globulin 3.0 (2.5-4.0) gm/dl Albumin/Globulin Ratio 1.2 (0.9-2) Procalcitonin 0.26 (0-0.5) ng/ml Adenovirus (PCR) Not Detected (NotDetected) B. pertussis DNA (PCR) Not Detected (NotDetected) B.parapertussis DNA PCR Not Detected (NotDetected) C. pneumoniae DNA (PCR) Not Detected (NotDetected) Coronavirus OC43 (PCR) Not Detected (NotDetected) Coronavirus HKU1 (PCR) Not Detected (NotDetected) Coronavirus 229E (PCR) Not Detected (NotDetected) SARS-CoV-2 (PCR) Not Detected (NotDetected) Coronavirus NL63 (PCR) Not Detected (NotDetected) Human Metapneumovir PCR Not Detected (NotDetected) Influenza Type A (PCR) Not Detected (NotDetected) Influenza Type B (PCR) Not Detected (NotDetected) M. pneumoniae (PCR) Not Detected (NotDetected) Parainfluenza 1 (PCR) Not Detected (NotDetected) Parainfluenza 2 (PCR) Not Detected (NotDetected) Parainfluenza 3 (PCR) Not Detected (NotDetected) Parainfluenza 4 (PCR) Not Detected (NotDetected) RSV (PCR) Not Detected (NotDetected) Entero/Rhino (PCR) Not Detected (NotDetected) Administered Medications Discontinued Medications Ondansetron HCl (Ondansetron Inj 2 Mg/Ml 2 Ml Vial) 4 mg IV NOW STA Stop: 10/28/24 10:38 Last Admin: 10/28/24 10:41 Dose: 4 mg Documented By: CARLOS Imaging Data Radiologist's Impression: Chest X-Ray 10/28/24 09:54 XR chest 1V portable CLINICAL HISTORY: Dyspnea COMPARISON STUDY: Chest CT October 21, 2024. Chest radiograph October 25, 2024. FINDINGS: Low lung volumes are noted. There is cardiomegaly with interstitial prominence. This is likely technical. There is no evidence for overt pulmonary edema. There is no consolidation to suggest pneumonia. IMPRESSION: No acute cardiopulmonary findings. No significant change in appearance of the chest. Hypoventilatory study. ACT 112: Negative or not required by law. Electronically signed by: Ethan Pearce M.D. 10/28/2024 10:57 AM Discharge Plan Visit Data Chief Complaint: Shortness of Breath/Dyspnea ED Provider: Brea Storey Discharge Problem: Acute dyspnea, Hypoxia, Sepsis, Leukocytosis, Acute kidney injury superimposed on chronic kidney disease, Elevated brain natriuretic peptide (BNP) level, Hypomagnesemia, Elevated lactic acid level Forms Stand Alone Forms: [facility] Prescriptions Prescriptions: No Action cetirizine 10 mg tablet 10 mg PO DAILY aspirin 81 mg tablet,delayed release (DR/EC) 81 mg PO DAILY dapagliflozin propanediol [Farxiga] 10 mg tablet 10 mg PO DAILY Qty: 90 3RF cholecalciferol (vitamin D3) 2,000 unit Capsule 2,000 unit PO QAM pravastatin 40 mg Tablet 40 mg PO HS potassium chloride 20 mEq Tablet Extended Release 20 meq PO BID cyanocobalamin (vitamin B-12) [Vitamin B-12] 500 mcg Tablet 500 mcg PO Q OTHER DAY trazodone 50 mg Tablet 50 mg PO HS PRN (Reason: Sleep) glipizide 10 mg Tablet 10 mg PO BID acetaminophen 500 mg Tablet 500 mg PO Q6H PRN (Reason: Pain) lisinopril 10 mg Tablet 10 mg PO DAILY Hold Instructions: Resume on 09/27/24. until seen by PCP metoprolol tartrate 50 mg Tablet 25 mg PO BID dexamethasone 0.5 mg Tablet 0 mg PO DAILY Hold Instructions: Resume on 09/27/24. until seen by PCP. You will be on prednisone taper in the meantime Rx Instructions: On list from [facility] as outside med. No verification on last fill date. Original Directions: 1mg by mouth daily fluticasone propionate 50 mcg/actuation spray,suspension 2 spray INTRANASAL BID sitagliptin 50 mg Tablet 50 mg PO DAILY amlodipine 5 mg tablet 5 mg PO BID pantoprazole 40 mg Tablet,Delayed Release (Dr/Ec) 40 mg PO QAM Qty: 30 0RF montelukast 10 mg Tablet 10 mg PO HS Qty: 30 0RF Breztri Aerosphere 160-9-4.8 mcg/actuation HFA aerosol inhaler 2 inh inhalation BID Qty: 10.7 0RF oxycodone 5 mg tablet 2.5 mg PO Q8H PRN (Reason: pain) Qty: 10 0RF azithromycin [Zithromax Z-Noman] 250 mg tablet See Rx Instructions PO .COMPLEX Qty: 6 0RF Rx Instructions: take 500 mg today (day 1), then 250 mg for 4 days (days 2-5) Referrals Referrals: Juanita Carlson PA-C [Primary Care Provider] -
[2024-10-28 10:33] LABS: Base Excess VBG -3.8 mEq/L; HCO3 VBG 21 mmol/L; Oxygen Saturation VBG 75.6 %; PCO2 VBG 35 mmHg (38-50); PO2 VBG 44 mmHg; pH VBG 7.38 (7.36-7.41)
[2024-10-28 10:38] LABS: Basophils # (auto) 0.06 K/uL (0.00-0.20); Basophils % (auto) 0.3 %; Eosinophils # (auto) 0.03 K/uL (0.00-0.50); Eosinophils % (auto) 0.1 %; Hematocrit (blood only) 45.6 % (42.0-52.0); Hemoglobin 15.2 g/dl (14.0-18.0); Immature Granulocytes # (auto) 0.17 K/uL (0.01-0.20); Immature Granulocytes % (auto) 0.8 %; Lymphocytes # (auto) 2.16 K/uL (1.20-3.40); Lymphocytes % (auto) 9.8 %; Mean Corpuscular Hemoglobin 30.7 pg (25.0-34.0); Mean Corpuscular Hgb Conc 33.3 g/dL (32.0-36.0); Mean Corpuscular Volume 92.1 fL (80.0-100.0); Mean Platelet Volume 9.7 fL (9.4-12.4); Monocytes # (auto) 0.95 K/uL (0.11-0.59); Monocytes % (auto) 4.3 %; Neutrophils # (auto) 18.57 K/uL (1.40-6.50); Neutrophils % (auto) 84.7 %; Platelet Count 174 K/uL (130-400); RDW Coefficient of Variation 16.1 % (11.5-14.5); RDW Standard Deviation 53.7 fL (36.4-46.3); Red Blood Count 4.95 M/uL (4.70-6.10); White Blood Count 21.94 K/ul (4.8-10.8)
[2024-10-28] MEDS: ONDANSETRON INJ 2 MG/ML 2 ML VIAL IV STA (10:41)
[2024-10-28 10:46] LABS: Prothrombin Time 11.2 Seconds (9.0-12.0)
[2024-10-28 10:57] LABS: Albumin Globulin Ratio 1.2 (0.9-2); Albumin Level 3.6 gm/dl (3.4-5.0); BUN Creatinine Ratio 9.7 (10-20); Bilirubin,Total 1.3 mg/dl (0.2-1.0); Calcium 8.8 mg/dl (8.6-10.3); Creatinine Clr Calc Pharmacy 36.1 ml/min; Magnesium 1.6 mg/dl (1.7-2.4); Potassium 4.5 mmol/L (3.5-5.1); Total Protein 6.6 gm/dl (6.0-8.3)
--- NOTE | 2024-10-28 10:59 | XRay Report ---
XR chest 1V portable CLINICAL HISTORY: Dyspnea COMPARISON STUDY: Chest CT October 21, 2024. Chest radiograph October 25, 2024. FINDINGS: Low lung volumes are noted. There is cardiomegaly with interstitial prominence. This is lik vin technical. There is no evidence for overt pulmonary edema. There is no consolidation to suggest p neumonia. IMPRESSION: No acute cardiopulmonary findings. No significant change in appearance of the chest. Hyp oventilatory study. ACT 112: Negative or not required by law. Electronically signed by: Ethan Pearce M.D. 10/28/2024 10:57 AM
[2024-10-28 11:05] LABS: Adenovirus PCR Not Detected (NotDetected); Bordetella parapertussis PCR Not Detected (NotDetected); Bordetella pertussis PCR Not Detected (NotDetected); Chlamydia pneumoniae PCR Not Detected (NotDetected); Coronavirus 229E PCR Not Detected (NotDetected); Coronavirus CoV-2 (COVID19)PCR Not Detected (NotDetected); Coronavirus HKU1 PCR Not Detected (NotDetected); Coronavirus NL63 PCR Not Detected (NotDetected); Coronavirus OC43PCR Not Detected (NotDetected); Human Metapneumovirus PCR Not Detected (NotDetected); Influenza A PCR Not Detected (NotDetected); Influenza B PCR Not Detected (NotDetected); Mycoplasma pneumoniae PCR Not Detected (NotDetected); Parainfluenza Virus 1 PCR Not Detected (NotDetected); Parainfluenza Virus 2 PCR Not Detected (NotDetected); Parainfluenza Virus 3 PCR Not Detected (NotDetected); Parainfluenza Virus 4 PCR Not Detected (NotDetected); Respiratory Syncytial VirusPCR Not Detected (NotDetected); Rhinovirus/Enterovirus PCR Not Detected (NotDetected)
[2024-10-28] MEDS: cefTRIAXone SODIUM 2,000 MG/50 ML BAG IV STA (11:40)
[2024-10-28] MEDS: ACETAMINOPHEN 1,000 MG/100 ML VIAL IV STA (11:40)
[2024-10-28] MEDS: MAGNESIUM SULFATE / D5W 1 GM/100 ML BAG IV STA (11:40)
[2024-10-28] MEDS: SODIUM CHLORIDE 0.9% 1,000 ML IV ONE (11:40)
--- NOTE | 2024-10-28 11:51 | History & Physical Report ---
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 He meets sepsis criteria on admission with sputum change and is on coverage for superimposed pneumonia. Also has nausea/vomiting with multiple family members having similar suspicious for viral GI illness. Due to recent hospitalization and multiple antibiotic courses and liquid diarrhea he is also being tested for C. difficile, and has new left greater than right due to recent hospitalization and multiple antibiotic courses and liquid diarrhea he is also being tested for C. difficile. He has new left greater than right leg swelling for which Dopplers have been ordered. CTA has been deferred due to recent CT and CKD. Acute hypoxic respiratory failure due to acute on chronic COPD exacerbation.? Sepsis due to superimposed pneumonia With suspected preceding viral prodrome however has increased fever, shortness of breath, and uptrending leukocytosis. Now with sputum changed to thick/dark yellow for 1 day 1 view chest x-ray without evidence of lobar pneumonia Rocephin given in the ER. Given recent hospitalization, failure of outpatient antibiotics, and clinical illness will expand to Zosyn/doxycycline Lactate is elevated 2.9, no evidence of pulmonary edema. Creatinine is slightly above baseline. Meet sepsis criteria. Sepsis AB W goal 3 L, IBW goal 1.9. Patient has been ordered 1500 cc while in the ER. Additional 500 cc ordered to meet sepsis resuscitation guidelines. He does not show signs of pulmonary edema and clinically feels greatly improved after approximately 1500 cc were given in the ER. Denies history of heart failure Last TTE 08/14/2023: EF 65 to 70%, no regional wall motion abnor malities.Lactate repeat pending. On reevaluation post 1500 cc of fluid patient has brisk cap refill in the right thumb. Heart rate is improving and downtrending to 8090s Nausea/vomiting/diarrhea With multiple members of his household with similar. High suspicion for viral however given recent hospitalization and multiple rounds of antibiotics with 3 liquid stools morning of admission will test for C. difficile Abdomen is soft, nontender. No right upper quadrant tenderness, no pain with meals. He does have an elevated total bilirubin however AST/ALT are normal. Suspect bilirubin elevation with volume contraction, will rehydrate and treat for suspected secondary pneumonia as above. If bilirubin does not normalize and follow-up with CT versus right upper quadrant ultrasound. Hypomagnesemia repleted, trend Acute on chronic asthmaCOPD overlap With history of [id number] smoking history in remission History of eosinophilia chronic cough. Lisinopril switched to olmesartan due to history of chronic cough Continue montelukast given prior eosinophil elevation, this has resolved on admission Cover with antibiotics as above, methylprednisolone 40 mg IV twice daily continued Flutter valve, incentive spirometry, Mucinex, DuoNebs ordered Leg swelling Patient reports a somewhat atypical for him. No pleuritic pain. Has been hospitalized recently with a fall/trauma. Dopplers ordered for DVT evaluation Patient has a history of CKD with creatinine at 1.86 above baseline on admission. He had a CT this past week as part of a chest wall evaluation which had adequate opacification of the pulmonary tree and did not show PEs at that time. Given recent contrasted CT study, CKD, and lack of inspiratory/pleuritic pain will defer CTA on admission and obtain Dopplers for new lower extremity swelling DM2 Metformin previously discontinued due to renal dysfunction. Home sitagliptin/dapagliflozin held Basal bolus SSI while admitted. Glargine 10 SQ BID, CF 45 CR 15 Goal BSG 233225 - A1C last 7.3% CKD Baseline creatinine around 1.561.8 Admitting creatinine 1.86 Avoid nephrotoxins. EMILEE switched to ARB, first dose 10/29 if renal function is at baseline. Hypertension Amlodipine continued, lisinopril switched to olmesartan as noted, beta-lynn continued, baby aspirin continued Patient denies history of CHF/NV/CAD Chronic stable issues: Hyperlipidemia: Statin continued DVT prophylaxis: Heparin subcu Diet: DM2/heart healthy CODE STATUS: DNR/DNI Disposition: M/T (2) Sepsis: (3) Leukocytosis: (4) Elevated brain natriuretic peptide (BNP) level: (5) Flu-like symptoms: (6) CHRISTIAN (obstructive sleep apnea): (7) COPD (chronic obstructive pulmonary disease): (8) CKD (chronic kidney disease) stage 3, GFR 30-59 ml/min: History of Present Illness Primary Care Provider: Juanita Carlson PA-C Ankush is a 79-year-old male with a past medical history of COPD, DM2, CKD3, HTN, 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 Patient with recent suspected viral URI discharged on a Z-Noman 10/25/2024, over the preceding 3 days has had progressively worsening cough, shortness of breath, sputum change productive for yellow sputum, increased oxygen requirements during the day, rhonchi and wheezing, and he was febrile to 38.1 in the ER and with a leukocytosis of 21.94 with neutrophilic predominance and NLR of 8.5. EKG sinus tachycardia, incomplete right bundle branch block redemonstrated, similar morphology compared to 10/25/2024. Troponin is normal BNP is slightly elevated at 159 Procalcitonin detectable but normal, 0.26 BioFire is negative Blood cultures pending Per Patient: Ankush is seen at the bedside. He reports that he was seen in the ER a few days ago and felt okay for discharge home but has had worsening shortness of breath over the last 3 days and generally feels very poor and tired. He is seen on reassessment post fluids and reports "it is the best I finally felt in days ". He reports he has had progressive fatigue, shortness of breath, fevers, chills. He has had multiple episodes of liquid diarrhea daily 3 episodes this morning, but none since arriving in the ER. He notes that he has multiple family members at home who also have children in daycare who also have respiratory symptoms and some diarrhea/vomiting. Ashley reports that he has no abdominal pain at all, has not been very hungry but has not had pain with meals. He has not had any hematemesis, melena, hematochezia. He reports his legs are more swollen than normal, in particular his left leg which is atypical for him. He did have a fall and a left chest wall injury with an overlying bruise last week. This was evaluated CT chest with contrast at that time. Pulmonary tree had good opacification at that time and no pulmonary emboli were noted. His discharge was supportive care and he notes while this initially hurt with breathing last week this has greatly improved and has no pain with inspiration and only mild pain on overlying palpation currently. He endorses wheezing the last few days. He has not been on steroids in last few days, has been taking azithromycin pack and using an albuterol inhaler as needed. He reports he was started on another inhaler after his last discharge but does not remember the name of this but he has been taking it at home. He was going to switch his lisinopril to another medicine due to chronic dry cough however this has not yet been done. No exertional chest pain or chest pressure. No syncope or presyncope Former smoker with no current tobacco use, no recent alcohol use. Denies any medication allergies. DNR/DNI, confirmed with patient at bedside Allergies Allergy/AdvReac Type Severity Reaction Status Date / Time Influenza Virus Vaccines Allergy Severe Shortness Verified 10/01/24 09:37 of breath ipratropium [From Combivent] Allergy Unknown On med Unverified 10/01/24 09:37 list from [facility] atorvastatin AdvReac Intermediate Cramping Verified 10/01/24 09:37 of the Muscles simvastatin AdvReac Intermediate Cramping Verified 10/01/24 09:37 of the Muscles Unknown antibiotic AdvReac visual Uncoded 10/01/24 09:37 disturbance/diarrhea Home Medications Medication Instructions Recorded Confirmed Type cholecalciferol (vitamin D3) 50 2,000 unit PO QAM 09/20/18 10/28/24 History mcg (2,000 unit) capsule pravastatin 40 mg tablet 40 mg PO HS 09/20/18 10/28/24 History potassium chloride 20 mEq 20 meq PO BID 05/19/21 10/28/24 History tablet,extended release aspirin 81 mg tablet,delayed 81 mg PO DAILY 06/20/21 10/28/24 History release cetirizine 10 mg tablet 10 mg PO DAILY 06/20/21 10/28/24 History cyanocobalamin (vitamin B-12) 500 500 mcg PO Q OTHER DAY 03/28/22 10/28/24 History mcg tablet (Vitamin B-12) acetaminophen 500 mg tablet 500 mg PO Q6H PRN Pain 09/17/24 10/28/24 History amlodipine 5 mg tablet 5 mg PO BID 09/17/24 10/28/24 History dexamethasone 0.5 mg tablet 0 mg PO DAILY 09/17/24 10/28/24 History fluticasone propionate 50 2 spray intranasal BID 09/17/24 10/28/24 History mcg/actuation nasal spray,suspension glipizide 10 mg tablet 10 mg PO BID 09/17/24 10/28/24 History lisinopril 10 mg tablet 10 mg PO DAILY 09/17/24 10/28/24 History metoprolol tartrate 50 mg tablet 25 mg PO BID 09/17/24 10/28/24 History sitagliptin 50 mg tablet 50 mg PO DAILY 09/17/24 10/28/24 History trazodone 50 mg tablet 50 mg PO HS PRN Sleep 09/17/24 10/28/24 History dapagliflozin propanediol 10 mg 10 mg PO DAILY #90 tabs 10/01/24 10/28/24 Rx tablet (Farxiga) budesonide 160 mcg-glycopyr 9 2 inh inhalation BID #10.7 grams 10/12/24 10/28/24 Rx mcg-formot 4.8 mcg/actuation HFA inhaler (Breztri Aerosphere) montelukast 10 mg tablet 10 mg PO HS #30 tabs 10/12/24 10/28/24 Rx pantoprazole 40 mg tablet,delayed 40 mg PO QAM #30 tabs 10/12/24 10/28/24 Rx release oxycodone 5 mg tablet 2.5 mg (1/2 x 5 mg) PO Q8H PRN 10/21/24 10/28/24 Rx pain #10 tabs azithromycin 250 mg tablet See Rx Instructions PO .COMPLEX #6 10/25/24 10/28/24 Rx (Zithromax Z-Noman) tabs Past Med/Surg History Problem List (Updated 10/28/24 @ 11:30 by Brea Storey MD) Elevated lactic acid level (Acute) Hypomagnesemia (Acute) Elevated brain natriuretic peptide (BNP) level (Acute) Acute kidney injury superimposed on chronic kidney disease (Acute) Leukocytosis (Acute) Sepsis (Acute) Hypoxia (Acute) Acute dyspnea (Acute) Contusion of left chest wall (Acute) Cough (Acute) Flu-like symptoms (Acute) Abrasion of knee, left (Acute) Chest wall contusion (Acute) Fall (Acute) Left-sided chest wall pain (Acute) Ex-smoker CHRISTIAN (obstructive sleep apnea) Alveolar emphysema of lung Peripheral eosinophilia Asthma-COPD overlap syndrome Hypoxia (Acute) Proteinuria Vitamin D deficiency Stage 3b chronic kidney disease Coronavirus infection (Acute) COPD (chronic obstructive pulmonary disease) (Acute) Lab test negative for COVID-19 virus (Acute) Cough (Acute) Hypoxemia (Acute) Bronchitis (Acute) Acute exacerbation of chronic obstructive pulmonary disease (COPD) 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 (Acute) COVID Left breast mass (Acute) Hypertension (Acute) Acute hypoxic respiratory failure Hyperlipidemia Diabetes mellitus, type II (Acute) CKD (chronic kidney disease) stage 3, GFR 30-59 ml/min (Acute) Substernal precordial chest pain (Acute) SOB (shortness of breath) (Acute) Mitral regurgitation Calculus of proximal left ureter (Acute) Hydronephrosis due to obstruction of ureter (Acute) Vision loss of left eye (Chronic) Medical History Hypoxic Pneumonia due to COVID-19 virus Hyperglycemia Leukocytosis Chest pain Acute kidney injury superimposed on CKD Cervical pain (neck) Pulmonary nodules Dyspnea on exertion Orthopnea Osteoarthritis Nephrolithiasis Surgical History Hx of cystoscopy STENT INSERTION AND NOW HAS CHRONIC PAIN IN LEFT LEG SINCE SURGERY H/O eye surgery RETINA REPAIR IN BOTH EYES Family History Father Congestive heart failure Mother Cancer Social History Smoking Status: Former smoker Tobacco Type: Cigarettes Second Hand Exposure: No; Do You Dip or Chew Tobacco: No; Hx Alcohol Use: No Hx Substance Use: No Preferred Language: Thai Communication Ability: Effective Visual Impairment: Partially Limited Forming Process Line Worker Required: No Beliefs That Will Affect Care: None marital status: / Current Living Situation: Family current occupational status: retired How many Children do You have: 3 Feels Safe at Home: Yes Diet: diabetic during the past year weight has: remained stable Assistive Devices: Oxygen - Continuous Physical Exam Physical Exam: General: A&Ox3. NAD. Cooperative. HEENT: Atraumatic, normocephalic. Vision and hearing grossly intact Pulm: Slightly diminished, no crackles appreciated. Scattered expiratory wheezes bilaterally are present. Patient is comfortable on nasal cannula, no respiratory distress Cardiac: Regular, initially tachycardic but rate improved to 80s following fluids. Radial pulses intact and symmetrical. Abdominal: Nontender, nondistended, soft. BS present. Little's negative Extremities: Left greater than right leg swelling and 1+ pitting edema bilaterally Results & Data Results & Data Vital Signs (Past 12 Hours) Vital Signs Temp Pulse Resp BP Pulse Ox O2 Del Method O2 Flow Rate 10/28/24 11:00 104 H 24 122/64 91 Nasal Cannula 3 10/28/24 10:12 124 H 31 H 91 10/28/24 10:08 111 H 10/28/24 10:00 126/82 10/28/24 10:00 126/82 10/28/24 09:54 93 Nasal Cannula 2 10/28/24 09:51 181/122 H 10/28/24 09:51 181/122 H 10/28/24 09:32 20 10/28/24 09:32 38.1 C H 127 H 16 181/122 H 88 L Room Air PG Care Time/CCT Total # of Minutes Spent Total Time Spent with Patient: Total time spent is greater than 50% in coordination of care (as documented) at patient's floor/unit and/or counseling patient: Coding Level of Care Code 94599 INT INP/OBS CARE 3/75MIN Diagnoses Hypoxia R09.02 Sepsis A41.9 Leukocytosis D72.829 Elevated brain natriuretic peptide (BNP) level R79.89 Flu-like symptoms R68.89 CHRISTIAN (obstructive sleep apnea) G47.33 COPD (chronic obstructive pulmonary disease) J44.9 COPD type: unspecified COPD CKD (chronic kidney disease) stage 3, GFR 30-59 ml/min N18.30 Chronic kidney disease stage 3 subtype: unspecified whether 3a or 3b (7) COPD (chronic obstructive pulmonary disease) COPD type: unspecified COPD Qualified Code(s): J44.9 - Chronic obstructive pulmonary disease, unspecified (8) CKD (chronic kidney disease) stage 3, GFR 30-59 ml/min Chronic kidney disease stage 3 subtype: unspecified whether 3a or 3b Qualified Code(s): N18.30 - Chronic kidney disease, stage 3 unspecified
[2024-10-28] MEDS ORDERED: CARBOHYDRATES FOR HYPOGLYCEMIA PO PRN (12:17)
[2024-10-28] MEDS ORDERED: DEXTROSE 50% 50 ML SYRINGE IV PRN (12:17)
[2024-10-28] MEDS ORDERED: GLUCOSE 40% GEL 15 GM TUBE PO PRN (12:17)
[2024-10-28] MEDS ORDERED: GLUCAGON FOR INJ 1 MG VIAL SQ PRN (12:17)
[2024-10-28] MEDS ORDERED: GLUCOSE 10 TAB/TUBE PO PRN (12:17)
--- NOTE | 2024-10-28 12:24 | Electrocardiogram Report ---
Test Reason : Blood Pressure : */* mmHG Vent. Rate : 127 BPM Atrial Rate : 127 BPM P-R Int : 166 ms QRS Dur : 106 ms QT Int : 316 ms P-R-T Axes : 44 7 0 degrees QTcB Int : 459 ms Sinus tachycardia Incomplete right bundle branch block possible Inferior infarct , age undetermined Abnormal ECG Confirmed by Jordan Jacobs ([id number]) on 10/28/2024 12:23:51 PM Referred By: REFERRED SELF Confirmed By: Jordan Jacobs
[2024-10-28] MEDS ORDERED: ALBUTEROL 0.5% NEB SOLN 2.5 MG/0.5 ML VIAL NEB PRN (12:27)
[2024-10-28] MEDS ORDERED: PHARMACY GLYCEMIC MGMT CONSULT PRN (12:27)
[2024-10-28] MEDS ORDERED: ACETAMINOPHEN 325 MG TAB PO PRN (12:28)
[2024-10-28] MEDS: PIPERACILLIN/TAZOBACTAM 4.5 GM/100 ML BAG IV ONE (12:32)
[2024-10-28] MEDS: SODIUM CHLORIDE 0.9% 500 ML IV ONE (12:35)
[2024-10-28] MEDS: INSULIN ASPART PER UNIT CHARGE SC SCH (13:17)
[2024-10-28] MEDS: LANTUS PER UNIT CHARGE SQ SCH ×2 (13:18→18:02)
--- NOTE | 2024-10-28 13:27 | Ultrasound Report ---
BILATERAL LOWER EXTREMITY VENOUS DOPPLER CLINICAL HISTORY: acute L>R leg swelling, r/o DVT COMPARISON STUDY: Bilateral lower extremity venous Doppler ultrasound May 19, 2021. TECHNIQUE: Sonography of the deep venous system of the bilateral lower extremities was performed. Co mpression and augmentation were evaluated. FINDINGS: The bilateral common femoral, superficial femoral and popliteal veins were compressible. A ugmentation was normal. Flow was shown within the deep calf vessels. IMPRESSION: No evidence of deep venous thrombus within the bilateral lower extremities. ACT 112: Negative or not required by law. Electronically signed by: Ethan Pearce M.D. 10/28/2024 1:26 PM
[2024-10-28] MEDS ORDERED: POLYETHYLENE (MIRALAX) 17 GM PACK PO PRN (14:37)
[2024-10-28] MEDS ORDERED: ONDANSETRON INJ 2 MG/ML 2 ML VIAL IV PRN (14:37)
[2024-10-28] MEDS ORDERED: traZODone HCL 50 MG TAB PO PRN (14:37)
[2024-10-28] MEDS ORDERED: oxyCODONE HCL IR 5 MG TAB (IMMEDIATE RELEASE) PO PRN (14:37)
--- NOTE | 2024-10-28 14:41 | Pharmacy Report ---
Pharmacy Glycemic Short Note 2 - Date of Service October 28, 2024 - Glycemic Short BSG Results (Last 24 hours): 10/28/24 10/28/24 10:07 12:40 Glucose 282 H POC Glucose 288 H OUTPATIENT ANTIDIABETIC REGIMEN: * farxiga 10 mg daily, glipizide 10 mg bid, sitagliptan 50 mg daily ASSESSMENT: * 79 year old admitted with COPD exacerbation. Pharmacy consulted for glycemic management. Type 2 diabetic managed on oral agents outpatient. Starting solumedrol 40 mg iv q 12 hours, anticipate steroid induced hyperglycemia. BSG before steroids >250 mg/dL - Will plan to tighten CF/CR and also give supplemental dose of Lantus 10-15 units with dinner (already received 10 units around lunch time of basal insulin) * Will add overnight checks to help with determining ongoing regimen PLAN FOR INPATIENT GLYCEMIC CONTROL: * Hold outpatient oral diabetes medications * Basal insulin * Lantus 10 units x 1 * Lantus 10-15 units based upon BSG at dinner * Bolus insulin * NovoLog per scale ACHS or Q6hrs while NPO * Goal Range: Low 110 mg/dL - High 150 mg/dL * Correction Factor: 20 mg/dL/unit * Nutritional / Prandial insulin per carb ratio of 1 unit per 7 grams CHO consumed
[2024-10-28] MEDS: DOXYCYCLINE HYCLATE 100 MG in DEXTROSE 5% MINI-B 100 ML IV SCH (15:18)
[2024-10-28] MEDS: methylPREDNISolone 40 MG in SYRINGE 0 ML IV SCH (15:18)
[2024-10-28] MEDS: PIPERACILLIN/TAZOBACTAM 4.5 GM/100 ML BAG IV SCH (18:01)
[2024-10-28 20:21] LABS: Appearance Urine Clear (Clear); Bacteria Urine Automated None Seen (None Seen); Bilirubin Urine Negative (Negative); Blood Urine Negative (Negative); Color Urine Yellow; Epithelial Cell Urine Auto 0-2 /hpf (0-2); Glucose Urine UA 3+ (Negative); Ketones Urine Trace (Negative); Leukocyte Esterase Urine Negative (Negative); Nitrite Urine Negative (Negative); Protein Urine 1+ (Negative); RBC Urine Automated 0-2 /hpf (0-2); Specific Gravity Urine 1.034 (1.000-1.030); Urobilinogen Urine Negative (Negative); WBC Urine Automated 0-5 /hpf (0-5); pH Urine 5.5 (4.5-7.5)
[2024-10-28] MEDS: HEPARIN SOD 5,000 UNIT/0.5 ML VIAL SQ SCH (20:59)
[2024-10-28] MEDS ORDERED: NON-FORMULARY MEDICATION (Budesonide-Glycopyr-Formoterol [Breztri Aerosphere] 160-9-4.8 mc INH SCH (21:00)
[2024-10-28] MEDS: METOPROLOL TARTRATE 25 MG TAB PO SCH (21:56)
[2024-10-28] MEDS: amLODIPine BESYLATE 5 MG TAB PO SCH (21:56)
[2024-10-28] MEDS: PRAVASTATIN SOD 40 MG TAB PO SCH (21:57)
[2024-10-28] MEDS: POTASSIUM CHLORIDE CRTAB 20 MEQ TABCR PO SCH (21:58)
[2024-10-28] MEDS: MONTELUKAST SODIUM 10 MG TABLET PO SCH (21:58)
[2024-10-29] MEDS: INSULIN ASPART PER UNIT CHARGE SC SCH (01:04)
[2024-10-29] MEDS: CYANOCOBALAMIN (B-12) 500 MCG TABLET PO SCH (08:10)
[2024-10-29] MEDS: CHOLECALCIFEROL 25 MCG (1000 UNITS) TAB PO SCH (08:10)
[2024-10-29] MEDS: LOSARTAN POTASSIUM 50 MG TAB PO SCH (08:10)
[2024-10-29] MEDS: PANTOprazole 40 MG TAB PO SCH (08:11)
[2024-10-29] MEDS: ASPIRIN 81 MG ECTAB PO SCH (08:12)
[2024-10-29] MEDS: CETIRIZINE HCL 10 MG TABLET PO SCH (08:12)
[2024-10-29] MEDS: FLUTICASONE FUROATE 200MCG 14 PUFFS/INHALER INH SCH (08:13)
[2024-10-29] MEDS: UMECLIDINIUM/VILANTEROL 62.5/25MCG 7 PUFFS/INHALER INH SCH (08:14)
[2024-10-29 08:42] LABS: Hematocrit (blood only) 38.7 % (42.0-52.0); Hemoglobin 13.4 g/dl (14.0-18.0); Mean Corpuscular Hemoglobin 31.7 pg (25.0-34.0); Mean Corpuscular Hgb Conc 34.6 g/dL (32.0-36.0); Mean Corpuscular Volume 91.5 fL (80.0-100.0); Mean Platelet Volume 9.8 fL (9.4-12.4); Platelet Count 178 K/uL (130-400); RDW Coefficient of Variation 15.8 % (11.5-14.5); RDW Standard Deviation 52.9 fL (36.4-46.3); Red Blood Count 4.23 M/uL (4.70-6.10); White Blood Count 14.45 K/ul (4.8-10.8)
[2024-10-29] MEDS: methylPREDNISolone 40 MG in SYRINGE 0 ML IV SCH (08:47)
[2024-10-29 09:00] LABS: Basophils # (auto) 0.01 K/uL (0.00-0.20); Basophils % (auto) 0.1 %; Immature Granulocytes # (auto) 0.09 K/uL (0.01-0.20); Immature Granulocytes % (auto) 0.6 %; Lymphocytes # (auto) 0.69 K/uL (1.20-3.40); Lymphocytes % (auto) 4.8 %; Monocytes # (auto) 0.48 K/uL (0.11-0.59); Monocytes % (auto) 3.3 %; Neutrophils # (auto) 13.18 K/uL (1.40-6.50); Neutrophils % (auto) 91.2 %
[2024-10-29] MEDS ORDERED: LANTUS PER UNIT CHARGE SQ SCH (09:00)
[2024-10-29 09:11] LABS: Albumin Level 3.1 gm/dl (3.4-5.0); BUN Creatinine Ratio 15.5 (10-20); Bilirubin Direct 0.1 mg/dl (0-0.2); Bilirubin,Total 0.5 mg/dl (0.2-1.0); Calcium 8.3 mg/dl (8.6-10.3); Creatinine Clr Calc Pharmacy 35.2 ml/min; Potassium 4.3 mmol/L (3.5-5.1)
[2024-10-29] MEDS: ALBUTEROL 0.083% NEBU SOLN 3 ML VIAL NEB SCH ×2 (09:23→14:13)
[2024-10-29] MEDS: INSULIN HUMAN NPH SC SCH (09:30)
--- NOTE | 2024-10-29 11:37 | Hospitalist Progress Note ---
Date of Service October 29, 2024 Assessment & Plan (1) Viral gastroenteritis: Plan: The patient states his nausea and vomiting and diarrhea have now resolved. Symptomatic care. (2) Hypoxia: Plan: Transiently present on admission. Now resolved. He is on room air (3) Sepsis: Plan: Present on admission. He met sepsis criteria. Now resolved (4) COPD (chronic obstructive pulmonary disease): Plan: The patient states his respiratory status is at baseline. Currently on exam he has no wheezing, rhonchi, or dullness to percussion (5) CKD (chronic kidney disease) stage 3, GFR 30-59 ml/min: Plan: Stable. Monitor intake and output. Serial labs (6) Diabetes mellitus, type II: Plan: ADA diet. Sliding scale insulin coverage. Usual oral medications on hold. Basal insulin therapy for now Plan Hopeful discharge to home tomorrow, October 30 Admission and Anticipated Discharge Date Admission Date: October 28, 2024 Subjective Alert and oriented. Respiratory status appears to be at baseline. He only had 1 episode of diarrhea prior to this admission which has resolved. He states his nausea and vomiting has already resolved. He is feeling much better and appears to have a viral gastroenteritis causing his current symptoms. Parenteral steroid therapy has been discontinued. Lantus has been switched to NPH while hospitalized for better glucose control. Hopefully he can go home tomorrow, October 30 Review of Systems 2 Review of Systems: Constitutionalno fever or chills ENTno blurred vision, no double vision, no epistaxis, no sore throat Respiratoryno cough, no wheezing, no shortness of breath Cardiacno palpitations, no chest pain, no syncope GI nausea, vomiting, and diarrhea have now resolved. He denies melena, hematochezia GUno urinary retention, no urinary incontinence, no dysuria, no hematuria Musculoskeletalno joint pain, no muscle tenderness Skinno bruising, no rashes, no pruritus Neurono isolated weakness, no paresthesia, no weakness Psychno depression, no anxiety Physical Exam 2 Physical Exam: General-alert and oriented x3, no fever, no chills HEENT-head atraumatic and normocephalic, pupils equal and reactive to light, extraocular muscles intact Neck-no lymphadenopathy or thyromegaly, trachea midline Chest-diminished breath sounds bilaterally. No rhonchi, inspiratory rales, wheezing Cardiacregular rhythm, normal heart rate, normal S1 and S2 Abdomen-normal bowel sounds, no hepatosplenomegaly Extremities-no cyanosis, clubbing, or edema Neuro-cranial nerves II through XII intact, motor and sensory function within normal limits, strength symmetrical, no focal deficits Psych-normal affect, normal mood Results & Data Results & Data Vital Signs (Past 12 Hours) Vital Signs Temp Pulse Pulse Resp BP Pulse Ox O2 Del Method 10/29/24 10:24 89 18 93 Room Air 10/29/24 10:16 Room Air 10/29/24 09:24 83 20 93 Room Air 10/29/24 07:30 36.6 C 82 15 122/64 93 Room Air 10/29/24 07:17 82 10/29/24 03:35 36.5 C 81 20 119/68 94 Room Air 10/29/24 00:20 36.6 C 84 20 135/74 93 Room Air Laboratory Results 10/29/24 08:12 10/29/24 08:12 PG Care Time/CCT Total # of Minutes Spent Total Time Spent with Patient: Total time spent is greater than 50% in coordination of care (as documented) at patient's floor/unit and/or counseling patient: Coding Level of Care Code 03426 SUB INP/OBS CARE 3/50MIN Diagnoses Viral gastroenteritis A08.4 Hypoxia R09.02 Sepsis A41.9 COPD (chronic obstructive pulmonary disease) J44.9 COPD type: unspecified COPD CKD (chronic kidney disease) stage 3, GFR 30-59 ml/min N18.30 Chronic kidney disease stage 3 subtype: unspecified whether 3a or 3b Diabetes mellitus, type II E11.65 Diabetes mellitus complication status: with hyperglycemia Diabetes mellitus buttermaker helper insulin use: unspecified buttermaker helper insulin use status (4) COPD (chronic obstructive pulmonary disease) COPD type: unspecified COPD Qualified Code(s): J44.9 - Chronic obstructive pulmonary disease, unspecified (5) CKD (chronic kidney disease) stage 3, GFR 30-59 ml/min Chronic kidney disease stage 3 subtype: unspecified whether 3a or 3b Qualified Code(s): N18.30 - Chronic kidney disease, stage 3 unspecified (6) Diabetes mellitus, type II Diabetes mellitus complication status: with hyperglycemia Diabetes mellitus buttermaker helper insulin use: unspecified [facility] insulin use status Qualified Code(s): E11.65 - Type 2 diabetes mellitus with hyperglycemia
[2024-10-30 07:34] LABS: Basophils # (auto) 0.01 K/uL (0.00-0.20); Basophils % (auto) 0.1 %; Hematocrit (blood only) 38.6 % (42.0-52.0); Hemoglobin 13.3 g/dl (14.0-18.0); Immature Granulocytes # (auto) 0.07 K/uL (0.01-0.20); Immature Granulocytes % (auto) 0.5 %; Mean Corpuscular Hemoglobin 31.7 pg (25.0-34.0); Mean Corpuscular Hgb Conc 34.5 g/dL (32.0-36.0); Mean Corpuscular Volume 91.9 fL (80.0-100.0); Mean Platelet Volume 9.8 fL (9.4-12.4); Monocytes # (auto) 0.96 K/uL (0.11-0.59); Monocytes % (auto) 6.6 %; Neutrophils # (auto) 12.16 K/uL (1.40-6.50); Neutrophils % (auto) 83.8 %; Platelet Count 212 K/uL (130-400); RDW Coefficient of Variation 15.9 % (11.5-14.5); RDW Standard Deviation 53.4 fL (36.4-46.3)
[2024-10-30 07:40] VITALS: TEMP 94.8
[2024-10-30 07:45] LABS: BUN Creatinine Ratio 19.3 (10-20); Creatinine Clr Calc Pharmacy 31.3 ml/min; Potassium 4.5 mmol/L (3.5-5.1)
[2024-10-30] MEDS: DIPHENOXYLATE/ATROPINE 2.5/0.025MG TAB PO PRN (10:41)
[2024-10-30] MEDS: PSYLLIUM or GUAR GUM FIBER 4GM PACKET PO SCH (10:41)
[2024-10-30 11:07] VITALS: PULSE 89; RESP 20; O2SAT 92
[2024-10-30 12:14] VITALS: BP 113/53
--- NOTE | 2024-10-30 12:14 | Discharge Summary ---
Discharge Summary Date of Service October 30, 2024 Principal Dx & Hospital Course #1 = Principal Diagnosis (1) Viral gastroenteritis: The patient states his nausea and vomiting has resolved. Diarrhea will be treated with Metamucil twice daily along with as needed Lomotil. He was instructed to avoid dairy products until his diarrhea resolves. (2) Hypoxia: Transiently present on admission. Now resolved. He is on room air (3) Sepsis: Present on admission. He met sepsis criteria. Now resolved (4) COPD (chronic obstructive pulmonary disease): The patient states his respiratory status is at baseline. Currently on exam he has no wheezing, rhonchi, or dullness to percussion. He is on room air (5) CKD (chronic kidney disease) stage 3, GFR 30-59 ml/min: Stable. Monitor intake and output. Serial labs (6) Diabetes mellitus, type II: ADA diet. Sliding scale insulin coverage. Usual oral medications on hold. Resume at discharge. 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 Patient with recent suspected viral URI discharged on a Z-Noman 10/25/2024, over the preceding 3 days has had progressively worsening cough, shortness of breath, sputum change productive for yellow sputum, increased oxygen requirements during the day, rhonchi and wheezing, and he was febrile to 38.1 in the ER and with a leukocytosis of 21.94 with neutrophilic predominance and NLR of 8.5. EKG sinus tachycardia, incomplete right bundle branch block redemonstrated, similar morphology compared to 10/25/2024. Troponin is normal BNP is slightly elevated at 159 Procalcitonin detectable but normal, 0.26 BioFire is negative Blood cultures pending Per Patient: Ankush is seen at the bedside. He reports that he was seen in the ER a few days ago and felt okay for discharge home but has had worsening shortness of breath over the last 3 days and generally feels very poor and tired. He is seen on reassessment post fluids and reports "it is the best I finally felt in days ". He reports he has had progressive fatigue, shortness of breath, fevers, chills. He has had multiple episodes of liquid diarrhea daily 3 episodes this morning, but none since arriving in the ER. He notes that he has multiple family members at home who also have children in daycare who also have respiratory symptoms and some diarrhea/vomiting. Ashley reports that he has no abdominal pain at all, has not been very hungry but has not had pain with meals. He has not had any hematemesis, melena, hematochezia. He reports his legs are more swollen than normal, in particular his left leg which is atypical for him. He did have a fall and a left chest wall injury with an overlying bruise last week. This was evaluated CT chest with contrast at that time. Pulmonary tree had good opacification at that time and no pulmonary emboli were noted. His discharge was supportive care and he notes while this initially hurt with breathing last week this has greatly improved and has no pain with inspiration and only mild pain on overlying palpation currently. He endorses wheezing the last few days. He has not been on steroids in last few days, has been taking azithromycin pack and using an albuterol inhaler as needed. He reports he was started on another inhaler after his last discharge but does not remember the name of this but he has been taking it at home. He was going to switch his lisinopril to another medicine due to chronic dry cough however this has not yet been done. No exertional chest pain or chest pressure. No syncope or presyncope Former smoker with no current tobacco use, no recent alcohol use. Denies any medication allergies. DNR/DNI, confirmed with patient at bedside Discharge Exam General-alert and oriented x3, no fever, no chills HEENT-head atraumatic and normocephalic, pupils equal and reactive to light, extraocular muscles intact Neck-no lymphadenopathy or thyromegaly, trachea midline Chest-diminished breath sounds bilaterally. No rhonchi, inspiratory rales, wheezing Cardiacregular rhythm, normal heart rate, normal S1 and S2 Abdomen-normal bowel sounds, no hepatosplenomegaly Extremities-no cyanosis, clubbing, or edema Neuro-cranial nerves II through XII intact, motor and sensory function within normal limits, strength symmetrical, no focal deficits Psych-normal affect, normal mood Discharge Plan Discharge Items Patient Disposition: Home - Self-Care Reason For Visit: FEVER, HYPOXIA, COPD EXACERBATION Discharge Diagnosis: Suspected viral gastroenteritis with nausea, vomiting and diarrhea Activity: Resume your previous activity Non-emergency contact: Primary Care Provider Call non-emergency contact if: your symptoms worsen Follow-up/Referrals: Juanita Carlson PA-C [Primary Care Provider] - Diet: Carb Consistent or DM2 Addtl Attending Provider Instructions: Take Metamucil twice daily for diarrhea and use Lomotil as needed for loose stools. Avoid milk products until diarrhea resolves. Pending Studies at Discharge: No Stand-Alone Forms: My [employer], Smoking Cessation Medications and DC Order Prescriptions: New diphenoxylate-atropine 2.5-0.025 mg Tablet 1 tab PO Q6H PRN (Reason: diarrhea) Qty: 10 0RF Psyllium Or Guar Gum Fiber Sup [Metamucil Or Nutrisource Fiber Supplement] 4 g PO BID Qty: 0 0RF Continued cetirizine 10 mg tablet 10 mg PO DAILY aspirin 81 mg tablet,delayed release (DR/EC) 81 mg PO DAILY dapagliflozin propanediol [Farxiga] 10 mg tablet 10 mg PO DAILY Qty: 90 3RF cholecalciferol (vitamin D3) 2,000 unit Capsule 2,000 unit PO QAM pravastatin 40 mg Tablet 40 mg PO HS potassium chloride 20 mEq Tablet Extended Release 20 meq PO BID cyanocobalamin (vitamin B-12) [Vitamin B-12] 500 mcg Tablet 500 mcg PO Q OTHER DAY trazodone 50 mg Tablet 50 mg PO HS PRN (Reason: Sleep) glipizide 10 mg Tablet 10 mg PO BID acetaminophen 500 mg Tablet 500 mg PO Q6H PRN (Reason: Pain) lisinopril 10 mg Tablet 10 mg PO DAILY Hold Instructions: Resume on 09/27/24. until seen by PCP metoprolol tartrate 50 mg Tablet 25 mg PO BID dexamethasone 0.5 mg Tablet 0 mg PO DAILY Hold Instructions: Resume on 09/27/24. until seen by PCP. You will be on prednisone taper in the meantime Rx Instructions: On list from [facility] as outside med. No verification on last fill date. Original Directions: 1mg by mouth daily fluticasone propionate 50 mcg/actuation spray,suspension 2 spray INTRANASAL BID sitagliptin 50 mg Tablet 50 mg PO DAILY amlodipine 5 mg tablet 5 mg PO BID pantoprazole 40 mg Tablet,Delayed Release (Dr/Ec) 40 mg PO QAM Qty: 30 0RF montelukast 10 mg Tablet 10 mg PO HS Qty: 30 0RF Breztri Aerosphere 160-9-4.8 mcg/actuation HFA aerosol inhaler 2 inh inhalation BID Qty: 10.7 0RF oxycodone 5 mg tablet 2.5 mg PO Q8H PRN (Reason: pain) Qty: 10 0RF azithromycin [Zithromax Z-Noman] 250 mg tablet See Rx Instructions PO .COMPLEX Qty: 6 0RF Rx Instructions: take 500 mg today (day 1), then 250 mg for 4 days (days 2-5) Discharge Orders: Discharge Order (Routine); Ordered 10/30/24 Ordered By: Jose Rueda Admission Data Admit Date/Time: 10/28/24 12:15 Attending Provider: Jose Rueda Admit Provider: Clarissa Ayala Primary Care Provider: Juanita aCrlson Other Providers: Ben Teague; [facility] Hospital Stay Data Consultations 10/28/24 11:28 ED Decision to Admit Stat Diagnostic Imagining Performed 10/28/24 11:57 US venous doppler LE BI Stat Pending Results Patient Have Any Pending Studies at Discharge: No Discharge Instructions Given to Patient (Per Discharging Provider) Take Metamucil twice daily for diarrhea and use Lomotil as needed for loose stools. Avoid milk products until diarrhea resolves. Total Time Total Time Spent Total Time Spent (In Minutes): 50 minutes Coding Level of Care Code 20642 INP/OBS DISCH >30 MIN Diagnoses Viral gastroenteritis A08.4 Hypoxia R09.02 Sepsis A41.9 COPD (chronic obstructive pulmonary disease) J44.9 COPD type: unspecified COPD CKD (chronic kidney disease) stage 3, GFR 30-59 ml/min N18.30 Chronic kidney disease stage 3 subtype: unspecified whether 3a or 3b Diabetes mellitus, type II E11.65 Diabetes mellitus complication status: with hyperglycemia Diabetes mellitus detention insulin use: unspecified detention insulin use status
== END 2024-10-30 13:18 | disposition home or self-care (01) | DRG 871 ==
LOC: SUATTDRO → ED 09:46 → 2N 12:15 → SUATTDRO 12:15 → 2N 14:00

== ENCOUNTER 2024-11-14 11:54 | Inpatient (IN) ==
--- NOTE | 2024-11-14 13:08 | Emergency Department Note ---
History of Present Illness General Chief complaint: Back Injury/Pain Stated complaint: BACK PAIN Time Seen by Provider: 11/14/24 12:47 History of Present Illness Maximum Pain Intensity: 10 This is a 79-year-old male that presents to the emergency department via private vehicle with complaints of "low back pain". The patient notes that 2 days ago he was standing and developed sudden onset low back pain. It does not radiate down the legs. It does not radiate into the abdomen. No associated fevers, chills, nausea, vomiting, chest pain or shortness of breath. No lower extremity weakness, bowel or bladder incontinence, numbness or tingling in genital region. The pain is worse with movement and better with rest but even at rest patient notes the pain comes and goes and at times is a 10/10. He notes trouble walking secondary to the severity of pain. No history of similar to this severity. Home Medications Medication Instructions Recorded Confirmed Type cholecalciferol (vitamin D3) 50 2,000 unit PO QAM 09/20/18 11/14/24 History mcg (2,000 unit) capsule pravastatin 40 mg tablet 40 mg PO HS 09/20/18 11/14/24 History potassium chloride 20 mEq 20 meq PO BID 05/19/21 11/14/24 History tablet,extended release aspirin 81 mg tablet,delayed 81 mg PO DAILY 06/20/21 11/14/24 History release cetirizine 10 mg tablet 10 mg PO DAILY 06/20/21 11/14/24 History cyanocobalamin (vitamin B-12) 500 500 mcg PO Q OTHER DAY 03/28/22 11/14/24 History mcg tablet (Vitamin B-12) acetaminophen 500 mg tablet 500 mg PO Q6H PRN Pain 09/17/24 11/14/24 History amlodipine 5 mg tablet 5 mg PO BID 09/17/24 11/14/24 History fluticasone propionate 50 2 spray intranasal BID 09/17/24 11/14/24 History mcg/actuation nasal spray,suspension glipizide 10 mg tablet 5 mg PO DAILY 09/17/24 11/14/24 History metoprolol tartrate 50 mg tablet 25 mg PO BID 09/17/24 11/14/24 History sitagliptin 50 mg tablet 50 mg PO DAILY 09/17/24 11/14/24 History dapagliflozin propanediol 10 mg 10 mg PO DAILY #90 tabs 10/01/24 11/14/24 Rx tablet (Farxiga) pantoprazole 40 mg tablet,delayed 40 mg PO QAM #30 tabs 10/12/24 11/14/24 Rx release oxycodone 5 mg tablet 2.5 mg (1/2 x 5 mg) PO Q8H PRN 10/21/24 10/28/24 Rx pain #10 tabs PSYLLIUM or GUAR GUM FIBER SUP 4 g PO BID ##0 10/30/24 11/14/24 Rx [METAMUCIL or NUTRISOURCE FIBER SUPPLEMENT] fluticasone 500 mcg-salmeterol 50 1 inh inhalation BID #60 ea 11/12/24 11/14/24 Rx mcg/dose blistr powdr for inhalation (Advair Diskus) montelukast 10 mg tablet 10 mg PO HS #30 tabs 11/12/24 11/14/24 Rx Allergies Allergy/AdvReac Type Severity Reaction Status Date / Time Influenza Virus Vaccines Allergy Severe Shortness Verified 10/01/24 09:37 of breath ipratropium [From Combivent] Allergy Unknown On med Unverified 10/01/24 09:37 list from [facility] atorvastatin AdvReac Intermediate Cramping Verified 10/01/24 09:37 of the Muscles simvastatin AdvReac Intermediate Cramping Verified 10/01/24 09:37 of the Muscles Unknown antibiotic AdvReac visual Uncoded 10/01/24 09:37 disturbance/diarrhea Past Med/Surg History Problem List (Updated 11/14/24 @ 17:12 by Jose Rueda MD) Type 2 diabetes mellitus Lumbar back pain with radiculopathy affecting left lower extremity Intractable low back pain (Acute) Viral gastroenteritis Hypomagnesemia (Acute) Acute kidney injury superimposed on chronic kidney disease (Acute) Sepsis (Acute) Acute dyspnea (Acute) Contusion of left chest wall (Acute) Cough (Acute) Abrasion of knee, left (Acute) Chest wall contusion (Acute) Fall (Acute) Left-sided chest wall pain (Acute) Ex-smoker Alveolar emphysema of lung Peripheral eosinophilia Asthma-COPD overlap syndrome Hypoxia (Acute) Proteinuria Vitamin D deficiency Stage 3b chronic kidney disease Coronavirus infection (Acute) Lab test negative for COVID-19 virus (Acute) Cough (Acute) Hypoxemia (Acute) Bronchitis (Acute) Acute exacerbation of chronic obstructive pulmonary disease (COPD) 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 (Acute) COVID Left breast mass (Acute) Hypertension (Acute) Acute hypoxic respiratory failure Hyperlipidemia Substernal precordial chest pain (Acute) SOB (shortness of breath) (Acute) Mitral regurgitation Calculus of proximal left ureter (Acute) Hydronephrosis due to obstruction of ureter (Acute) Vision loss of left eye (Chronic) Medical History Hypoxic Pneumonia due to COVID-19 virus Hyperglycemia Leukocytosis Chest pain Acute kidney injury superimposed on CKD Cervical pain (neck) Pulmonary nodules Dyspnea on exertion Orthopnea Osteoarthritis Nephrolithiasis Surgical History Hx of cystoscopy STENT INSERTION AND NOW HAS CHRONIC PAIN IN LEFT LEG SINCE SURGERY H/O eye surgery RETINA REPAIR IN BOTH EYES Family History Father Congestive heart failure Mother Cancer Social History Smoking Status: Former smoker Tobacco Type: Cigarettes Second Hand Exposure: No; Do You Dip or Chew Tobacco: No; Hx Alcohol Use: No Hx Substance Use: No Preferred Language: Divehi Communication Ability: Effective Visual Impairment: Partially Limited Hand Endband Cutter Required: No Beliefs That Will Affect Care: None marital status: / Current Living Situation: Family current occupational status: retired How many Children do You have: 3 Feels Safe at Home: Yes Diet: diabetic during the past year weight has: remained stable Assistive Devices: None, Cane and Walker Review of Systems A total of 10 systems reviewed and were otherwise negative Physical Exam Vital Signs Vital Signs - 24 hr 11/14/24 12:01 11/14/24 13:26 11/14/24 15:00 Temperature 36.8 C Temperature Source Temporal Artery Scan Pulse Rate 94 H Pulse Rate [Left Finger] 75 Pulse Rhythm [Left Finger] Regular Pulse Strength [Left Finger] Respiratory Rate 24 17 Respiratory Effort / Characteristics SOB on Exertion Non-Labored Spontaneous Respiratory Depth Normal Respiratory Pattern Regular Regular Blood Pressure 135/78 Blood Pressure [Right Arm] 126/87 Blood Pressure Mean 97 Blood Pressure Mean [Right Arm] 100 Blood Pressure Position [Right Arm] Pulse Oximetry 92 93 94 Oxygen Delivery Method Room Air Room Air Room Air Sepsis Recent Fever Within 48 Hours No Sepsis New/Unexplained Change in Mental Status No Sepsis Action Taken by Nursing No Action Required 11/14/24 17:00 11/14/24 18:00 Temperature Temperature Source Pulse Rate Pulse Rate [Left Finger] 66 68 Pulse Rhythm [Left Finger] Regular Pulse Strength [Left Finger] Normal Respiratory Rate 16 15 Respiratory Effort / Characteristics Non-Labored Spontaneous Non-Labored Spontaneous Respiratory Depth Normal Normal Respiratory Pattern Agonal Regular Blood Pressure Blood Pressure [Right Arm] 145/75 H 139/79 Blood Pressure Mean Blood Pressure Mean [Right Arm] 98 99 Blood Pressure Position [Right Arm] Lying Pulse Oximetry 91 91 Oxygen Delivery Method Room Air Room Air Sepsis Recent Fever Within 48 Hours Sepsis New/Unexplained Change in Mental Status Sepsis Action Taken by Nursing VITAL SIGNS - Vital signs and nursing notes were reviewed. Stable and afebrile. GENERAL - 79-year-old male appearing his stated age who is in no acute distress. Communicates well with provider and answers questions appropriately. SKIN - Without rashes. No meningeal or petechial rash. No herpetic lesions. The integument overlying the low back is unremarkable. HEAD - NC/AT. EYES - Sclera anicteric. MOUTH/OROPHARYNX - Without perioral cyanosis. NECK - Neck with FROM. No nuchal rigidity. LUNGS - CTA CARDIAC - RRR ABDOMEN - Abdominal contour normal without pulsations or visible masses. BS normoactive all four quadrants. No tenderness, palpable masses, hepatosplenomegaly, or ascites noted. EXTREMITIES - No clubbing or peripheral cyanosis. Patient can stand and ambulate independently but with significant discomfort in doing so. +5/5 strength noted in UE/LE bilaterally. MUSCULOSKELETALthere is reproducible tenderness to palpation overlying the spinous processes of the L-spine and paraspinous musculature. NEUROLOGIC - Cranial nerves II through XII grossly intact. Sensory intact to light touch throughout. Patellar reflexes +2/4. PSYCH -alert, oriented and pleasant on exam. Course Administered Medications Discontinued Medications Acetaminophen (Acetaminophen 500 Mg Tab) 500 mg PO NOW STA Stop: 11/14/24 15:02 Last Admin: 11/14/24 15:24 Dose: 500 mg Documented By: JORDEN Lidocaine (Lidocaine 5% 1 Patch) 1 patch TD NOW STA Stop: 11/14/24 13:08 Last Admin: 11/14/24 13:18 Dose: 1 patch Documented By: FRANCES Methylprednisolone (Methylprednisolone 125 Mg/2 Ml Vial) 125 mg IV NOW STA Stop: 11/14/24 16:38 Last Admin: 11/14/24 16:57 Dose: 125 mg Documented By: JORDEN Morphine Sulfate (Morphine Sulfate 2 Mg/Ml Carp) 2 mg IV NOW STA Stop: 11/14/24 13:21 Last Admin: 11/14/24 13:36 Dose: 2 mg Documented By: FRANCES Morphine Sulfate (Morphine Sulfate 2 Mg/Ml Carp) 2 mg IV NOW STA Stop: 11/14/24 15:01 Last Admin: 11/14/24 15:23 Dose: 2 mg Documented By: JORDEN Medical Decision Making Laboratory Data 11/14/24 13:13 11/14/24 13:13 Lab Results 11/14/24 11/14/24 Range/Units 13:13 14:30 WBC 15.97 H (4.8-10.8) K/ul RBC 4.95 (4.70-6.10) M/uL Hgb 15.5 (14.0-18.0) g/dl Hct 45.5 (42.0-52.0) % MCV 91.9 (80.0-100.0) fL MCH 31.3 (25.0-34.0) pg MCHC 34.1 (32.0-36.0) g/dL RDW Std Deviation 54.8 H (36.4-46.3) fL RDW Coeff of Mark 16.2 H (11.5-14.5) % Plt Count 252 (130-400) K/uL MPV 9.2 L (9.4-12.4) fL Immature Gran % (Auto) 0.7 % Neut % (Auto) 78.8 % Lymph % (Auto) 12.6 % [place] % (Auto) 5.8 % Eos % (Auto) 1.6 % Baso % (Auto) 0.5 % Neut # (Auto) 12.58 H (1.40-6.50) K/uL Lymph # (Auto) 2.01 (1.20-3.40) K/uL [place] # (Auto) 0.93 H (0.11-0.59) K/uL Eos # (Auto) 0.26 (0.00-0.50) K/uL Baso # (Auto) 0.08 (0.00-0.20) K/uL Immature Gran # (Auto) 0.11 (0.01-0.20) K/uL Sodium 140 (136-145) mmol/L Potassium 4.7 (3.5-5.1) mmol/L Chloride 107 (98-107) mmol/L Carbon Dioxide 26 (21-32) mmol/L Anion Gap 7 (3-11) BUN 21 (6-23) mg/dl Creatinine 1.84 H (0.6-1.4) mg/dl Est Cr Clr Drug Dosing 35.1 ml/min eGFR 36.83 BUN/Creatinine Ratio 11.4 (10-20) Glucose 189 H (70-99(Fasting)) mg/dl Calcium 9.6 (8.6-10.3) mg/dl Total Bilirubin 0.8 (0.2-1.0) mg/dl AST 17 (13-39) U/L ALT 10 (7-52) U/L Alkaline Phosphatase 107 H (34-104) U/L Total Protein 7.7 (6.0-8.3) gm/dl Albumin 4.1 (3.4-5.0) gm/dl Globulin 3.6 (2.5-4.0) gm/dl Albumin/Globulin Ratio 1.1 (0.9-2) Urine Color Yellow Urine Appearance Clear (Clear) Urine pH 5.5 (4.5-7.5) Ur Specific [place] 1.035 H (1.000-1.030) Urine Protein 1+ H (Negative) Urine Glucose (UA) 3+ H (Negative) Urine Ketones Negative (Negative) Urine Blood Negative (Negative) Urine Nitrite Negative (Negative) Urine Bilirubin Negative (Negative) Urine Urobilinogen Negative (Negative) Ur Leukocyte Esterase Negative (Negative) Urine WBC (Auto) 0-5 (0-5) /hpf Urine RBC (Auto) 3-5 H (0-2) /hpf U Hyaline Cast (Auto) 0-2 (0-2) /lpf U Epithel Cells (Auto) 0-2 (0-2) /hpf Urine Bacteria (Auto) None Seen (None Seen) Imaging Data Radiologist's Impression: Abdomen/Pelvis CT 11/14/24 13:06 CT OF THE ABDOMEN AND PELVIS WITHOUT CONTRAST CLINICAL HISTORY: Low back pain x 2 days, sudden onset COMPARISON STUDY: CT of the abdomen and pelvis October 21, 2024. TECHNIQUE: Axial images of the abdomen and pelvis were obtained without IV contrast. Images were reviewed in the axial, sagittal, and coronal planes. Automated exposure control was utilized for the study. A dose lowering technique was utilized adhering to the principles of ALARA. FINDINGS: Visualized portions of the lung bases are unremarkable. A 4 mm right lower lobe nodule is unchanged since CT of September 18, 2018. This is benign. 2.6 cm lobulated left breast nodule remains unchanged from earlier exams. This nodule was previously biopsied. There is a 8 mm left renal calculus. Small right renal calculi are present. There are no ureteral calculi and there is no hydronephrosis. An intermediate attenuation 4.2 cm right lower pole renal lesion likely represents a pronation cyst within correlating with recent contrast- enhanced CT. Water attenuation bilateral renal lesions favor cysts. A few subcentimeter renal lesions are too small to characterize. Unenhanced images of the liver, spleen, adrenal glands and pancreas are unremarkable. There is no biliary or pancreatic ductal dilatation. No peripancreatic or pericholecystic infiltration. There is no evidence for a bowel obstruction. Note is made of colonic diverticulosis without evidence for acute diverticulitis. The appendix is normal. There are no fluid collections. No lymphadenopathy. No acute fractures. There is mild degenerative disc disease and moderate facet arthrosis within the lumbar spine. IMPRESSION: 1. Bilateral nephrolithiasis. No ureteral calculi or hydronephrosis. 2. No evidence for a bowel obstruction. Colonic diverticulosis. No evidence for acute diverticulitis. 3. Mild degenerative disc disease and moderate facet arthrosis within the lumbar spine. No lumbar spine fractures. ACT 112: Negative or not required by law. Electronically signed by: Ethan Pearce M.D. 11/14/2024 1:[address] 11/14/24 13:06 CT lumbar spine wo con HISTORY: 79 years-old Male Low back pain x 2 days, sudden onset COMPARISON: CT abdomen and pelvis 10/21/2024, CT lumbar spine 11/11/2022 TECHNIQUE: Multiple axial CT images of the lumbar spine were obtained without IV contrast. A dose lowering technique was used consistent with the principals of ALARA. FINDINGS: Atherosclerosis of the aorta with infrarenal ectasia, 2.[address] abdomen and pelvis dictated separately. Exophytic intermediate density lesion of the inferior pole right kidney. Demineralized appearance of the bones. Mild spondylitic spurring and intervertebral disc space narrowing with multilevel facet arthrosis, severe at 4-L5. Transitional lumbosacral anatomy. Mild chronic wedge deformities of the spine. No acute fracture, subluxation or endplate erosion. The imaged sacrum and iliac bones appear intact. Suboptimal evaluation of the central canal and neural foramen by CT technique. There is a calcified structure within the left lateral recess central canal posterior to the T11 vertebral body measuring up to 0.9 x 0.5 x 1.1 cm. A sequestered disc fragment versus meningioma are differential considerations. Multilevel neural foraminal narrowing. IMPRESSION: No acute fracture or subluxation. ACT 112: Negative or not required by law. The above report was generated using voice recognition software. It may contain grammatical, syntax or spelling errors. Electronically signed by: Morris Jesus M.D. 11/14/2024 2:02 PM MDM Narrative Patient was seen and evaluated as above in room D01b. Review was performed of triage nursing notes and vital signs. I did review pertinent previous visits and patient history. After obtaining a thorough history and physical examination the above work up was performed. Patient presents for evaluation of low back pain x 2-3 days without trauma or injury. He appears to be in pain on my exam. Options of care were discussed with the patient. IV access with established. Labs are drawn. Patient was medicated here with IV morphine and a lidocaine patch. He was reevaluated with some improvement but as I helped the patient walk to the bathroom he noted that pain returned and upon exiting the bathroom pain significantly worsened to a point where he was having trouble ambulating. Additional IV analgesia and oral acetaminophen was added. The patient is limited on what he is able to take for pain noting his baseline CKD therefore does not take NSAIDs. Furthermore, we must be very cautious with opiates and narcotics noting the patient's underlying comorbidities. Also, patient has been using Tylenol yesterday as instructed and notes no improvement of pain. Labs reveal leukocytosis 15.97, similar to previous without infectious finding on examination. There is evidence of CKD, creat 1.84 today. Glucose 189. Urinalysis does not suggest infection. A CT scan was performed of the abdomen/pelvis without contrast noting the CKD and recon imaging of the L-spine was performed. Results as above. No acute findings noted. The patient is significantly claustrophobic and notes trouble even with CT scans. I do not believe that emergent MRI of the L-spine at this time is needed, I did perform a post void bladder scan. This was normal. No urinary retention. The patient continues with significant low back pain. Will proceed with inpatient management. I spoke with Dr. Rueda. Hospitalist did recommend 125 mg Solu-Medrol IV x 1. This was ordered. Please refer to further documentation regarding his stay. GCS: 15 In the evaluation and treatment of this patient the following differential diagnoses were entertained: Cauda equina syndrome, sprain, strain, fracture, dislocation, AAA, kidney stone, among others. Impression & Plan Intractable low back pain Discharge Plan Visit Data Chief Complaint: Back Injury/Pain Stated Complaint: BACK PAIN ED Provider: Chung Fritz ED Midlevel Provider: Silvio Marx Discharge Problem: Intractable low back pain Patient Disposition: Admitted As Inpatient Condition: Good Discharge Instructions Interventions: ED Discharge Assessment Last Done: 11/14/24 20:56
--- NOTE | 2024-11-14 13:13 | Emergency Department Note ---
ED Visit Note Patient seen in conjunction with physician it assistant HPI: Patient 79-year-old male presenting with lower back pain. Patient states he is having trouble walking. Patient denies bowel or bladder symptoms. Patient states he had a fall 1 month prior and did have imaging performed at that time. Exam: Lower back tenderness A&P: Patient having lower back pain on exam. Patient had CT scan performed with no acute fractures present. Patient be admitted for further evaluation to hospital service. Dx: Low back pain, ambulatory dysfunction Dispo: Admission I agree with the physician assistants work-up and treatment plan. Please see their note for more detailed exam findings. I performed a substantive portion of the visit including all aspects of medical decision making. .
[2024-11-14] MEDS: LIDOCAINE 5% 1 PATCH TD STA (13:18)
[2024-11-14 13:24] LABS: Basophils # (auto) 0.08 K/uL (0.00-0.20); Basophils % (auto) 0.5 %; Eosinophils # (auto) 0.26 K/uL (0.00-0.50); Eosinophils % (auto) 1.6 %; Hematocrit (blood only) 45.5 % (42.0-52.0); Hemoglobin 15.5 g/dl (14.0-18.0); Immature Granulocytes # (auto) 0.11 K/uL (0.01-0.20); Immature Granulocytes % (auto) 0.7 %; Lymphocytes # (auto) 2.01 K/uL (1.20-3.40); Lymphocytes % (auto) 12.6 %; Mean Corpuscular Hemoglobin 31.3 pg (25.0-34.0); Mean Corpuscular Hgb Conc 34.1 g/dL (32.0-36.0); Mean Corpuscular Volume 91.9 fL (80.0-100.0); Mean Platelet Volume 9.2 fL (9.4-12.4); Monocytes # (auto) 0.93 K/uL (0.11-0.59); Monocytes % (auto) 5.8 %; Neutrophils # (auto) 12.58 K/uL (1.40-6.50); Neutrophils % (auto) 78.8 %; Platelet Count 252 K/uL (130-400); RDW Coefficient of Variation 16.2 % (11.5-14.5); RDW Standard Deviation 54.8 fL (36.4-46.3); Red Blood Count 4.95 M/uL (4.70-6.10); White Blood Count 15.97 K/ul (4.8-10.8)
[2024-11-14] MEDS: MoRPHine SULFATE 2 MG/ML CARP IV STA ×2 (13:36→15:23)
[2024-11-14 13:45] LABS: Albumin Globulin Ratio 1.1 (0.9-2); Albumin Level 4.1 gm/dl (3.4-5.0); BUN Creatinine Ratio 11.4 (10-20); Bilirubin,Total 0.8 mg/dl (0.2-1.0); Calcium 9.6 mg/dl (8.6-10.3); Creatinine Clr Calc Pharmacy 35.1 ml/min; Globulin 3.6 gm/dl (2.5-4.0); Potassium 4.7 mmol/L (3.5-5.1); Total Protein 7.7 gm/dl (6.0-8.3)
--- NOTE | 2024-11-14 13:51 | CT Scan Report ---
CT OF THE ABDOMEN AND PELVIS WITHOUT CONTRAST CLINICAL HISTORY: Low back pain x 2 days, sudden onset COMPARISON STUDY: CT of the abdomen and pelvis October 21, 2024. TECHNIQUE: Axial images of the abdomen and pelvis were obtained without IV contrast. Images were revi ewed in the axial, sagittal, and coronal planes. Automated exposure control was utilized for the indy dy. A dose lowering technique was utilized adhering to the principles of ALARA. FINDINGS: Visualized portions of the lung bases are unremarkable. A 4 mm right lower lobe nodule is u nchanged since CT of September 18, 2018. This is benign. 2.6 cm lobulated left breast nodule remains unc hanged from earlier exams. This nodule was previously biopsied. There is a 8 mm left renal calculus. Small right renal calculi are present. There are no ureteral calculi and there is no hydronephrosis. An intermediate attenuation 4.2 cm right lower pole renal lesion likely represents a pronation cyst w ithin correlating with recent contrast-enhanced CT. Water attenuation bilateral renal lesions favor c ysts. A few subcentimeter renal lesions are too small to characterize. Unenhanced images of the liver , spleen, adrenal glands and pancreas are unremarkable. There is no biliary or pancreatic ductal dila tation. No peripancreatic or pericholecystic infiltration. There is no evidence for a bowel obstructi on. Note is made of colonic diverticulosis without evidence for acute diverticulitis. The appendix is normal. There are no fluid collections. No lymphadenopathy. No acute fractures. There is mild degene rative disc disease and moderate facet arthrosis within the lumbar spine. IMPRESSION: 1. Bilateral nephrolithiasis. No ureteral calculi or hydronephrosis. 2. No evidence for a bowel obstruction. Colonic diverticulosis. No evidence for acute diverticulitis. 3. Mild degenerative disc disease and moderate facet arthrosis within the lumbar spine. No lumbar spi ne fractures. ACT 112: Negative or not required by law. Electronically signed by: Ethan Pearce M.D. 11/14/2024 1:49 PM
--- NOTE | 2024-11-14 14:03 | CT Scan Report ---
CT lumbar spine wo con HISTORY: 79 years-old Male Low back pain x 2 days, sudden onset COMPARISON: CT abdomen and pelvis 10/21/2024, CT lumbar spine 11/11/2022 TECHNIQUE: Multiple axial CT images of the lumbar spine were obtained without IV contrast. A dose lo wering technique was used consistent with the principals of CORNELIUS. FINDINGS: Atherosclerosis of the aorta with infrarenal ectasia, 2.[address] abdomen and pelvis dictated separate ly. Exophytic intermediate density lesion of the inferior pole right kidney. Demineralized appearance of the bones. Mild spondylitic spurring and intervertebral disc space narrow ing with multilevel facet arthrosis, severe at 4-L5. Transitional lumbosacral anatomy. Mild chronic w edge deformities of the spine. No acute fracture, subluxation or endplate erosion. The imaged sacrum and iliac bones appear intact. Suboptimal evaluation of the central canal and neural foramen by CT te chnique. There is a calcified structure within the left lateral recess central canal posterior to the T11 vertebral body measuring up to 0.9 x 0.5 x 1.1 cm. A sequestered disc fragment versus meningioma are differential considerations. Multilevel neural foraminal narrowing. IMPRESSION: No acute fracture or subluxation. ACT 112: Negative or not required by law. The above report was generated using voice recognition software. It may contain grammatical, syntax o r spelling errors. Electronically signed by: Morris Jesus M.D. 11/14/2024 2:02 PM
[2024-11-14 14:59] LABS: Appearance Urine Clear (Clear); Bacteria Urine Automated None Seen (None Seen); Bilirubin Urine Negative (Negative); Blood Urine Negative (Negative); Cast Urine Automated 0-2 /lpf (0-2); Color Urine Yellow; Epithelial Cell Urine Auto 0-2 /hpf (0-2); Glucose Urine UA 3+ (Negative); Ketones Urine Negative (Negative); Leukocyte Esterase Urine Negative (Negative); Nitrite Urine Negative (Negative); Protein Urine 1+ (Negative); Specific Gravity Urine 1.035 (1.000-1.030); Urobilinogen Urine Negative (Negative); WBC Urine Automated 0-5 /hpf (0-5); pH Urine 5.5 (4.5-7.5)
[2024-11-14] MEDS: ACETAMINOPHEN 500 MG TAB PO STA (15:24)
[2024-11-14] MEDS: methylPREDNISolone 125 MG/2 ML VIAL IV STA (16:57)
--- NOTE | 2024-11-14 17:13 | History & Physical Report ---
Date of Service November 14, 2024 Assessment & Plan (1) Lumbar back pain with radiculopathy affecting left lower extremity: Plan: Parenteral steroid therapy. Parenteral pain medication as needed (2) Stage 3b chronic kidney disease: Plan: Monitor intake and output. Serial labs (3) Hypertension: Plan: Stable. Continue current medications (4) Type 2 diabetes mellitus: Plan: ADA diet. Sliding scale coverage as needed Plan Hopeful discharge back home within the next day or 2 on oral prednisone tapering dose History of Present Illness Chief Complaint: Lumbar pain with weightbearing, left upper leg paresthesia Primary Care Provider: Juanita Carlson PA-C 79-year-old white male who is standing peeling potatoes when he developed lumbar pain and has left lower extremity paresthesia in the thigh region. He denies any weakness. He says his pain is worse with weightbearing. CT scan of the lumbar spine and CT abdomen pelvis reveal degenerative disc disease with mild to moderate facet arthropathy. It appears he has lumbar radiculopathy and has been started on parenteral steroid therapy. Pain control measures ordered. Undoubtedly the parenteral steroids will aggravate his glucose levels. Sliding scale coverage ordered. Allergies Allergy/AdvReac Type Severity Reaction Status Date / Time Influenza Virus Vaccines Allergy Severe Shortness Verified 10/01/24 09:37 of breath ipratropium [From Combivent] Allergy Unknown On med Unverified 10/01/24 09:37 list from [facility] atorvastatin AdvReac Intermediate Cramping Verified 10/01/24 09:37 of the Muscles simvastatin AdvReac Intermediate Cramping Verified 10/01/24 09:37 of the Muscles Unknown antibiotic AdvReac visual Uncoded 10/01/24 09:37 disturbance/diarrhea Home Medications Medication Instructions Recorded Confirmed Type cholecalciferol (vitamin D3) 50 2,000 unit PO QAM 09/20/18 10/28/24 History mcg (2,000 unit) capsule pravastatin 40 mg tablet 40 mg PO HS 09/20/18 10/28/24 History potassium chloride 20 mEq 20 meq PO BID 05/19/21 10/28/24 History tablet,extended release aspirin 81 mg tablet,delayed 81 mg PO DAILY 06/20/21 10/28/24 History release cetirizine 10 mg tablet 10 mg PO DAILY 06/20/21 10/28/24 History cyanocobalamin (vitamin B-12) 500 500 mcg PO Q OTHER DAY 03/28/22 10/28/24 History mcg tablet (Vitamin B-12) acetaminophen 500 mg tablet 500 mg PO Q6H PRN Pain 09/17/24 10/28/24 History amlodipine 5 mg tablet 5 mg PO BID 09/17/24 10/28/24 History dexamethasone 0.5 mg tablet 0 mg PO DAILY 09/17/24 10/28/24 History fluticasone propionate 50 2 spray intranasal BID 09/17/24 10/28/24 History mcg/actuation nasal spray,suspension glipizide 10 mg tablet 10 mg PO BID 09/17/24 10/28/24 History lisinopril 10 mg tablet 10 mg PO DAILY 09/17/24 10/28/24 History metoprolol tartrate 50 mg tablet 25 mg PO BID 09/17/24 10/28/24 History sitagliptin 50 mg tablet 50 mg PO DAILY 09/17/24 10/28/24 History trazodone 50 mg tablet 50 mg PO HS PRN Sleep 09/17/24 10/28/24 History dapagliflozin propanediol 10 mg 10 mg PO DAILY #90 tabs 10/01/24 10/28/24 Rx tablet (Farxiga) pantoprazole 40 mg tablet,delayed 40 mg PO QAM #30 tabs 10/12/24 10/28/24 Rx release oxycodone 5 mg tablet 2.5 mg (1/2 x 5 mg) PO Q8H PRN 10/21/24 10/28/24 Rx pain #10 tabs azithromycin 250 mg tablet See Rx Instructions PO .COMPLEX #6 10/25/24 10/28/24 Rx (Zithromax Z-Noman) tabs PSYLLIUM or GUAR GUM FIBER SUP 4 g PO BID ##0 10/30/24 Rx [METAMUCIL or NUTRISOURCE FIBER SUPPLEMENT] diphenoxylate-atropine 2.5 1 tab PO Q6H PRN diarrhea #10 tabs 10/30/24 Rx mg-0.025 mg tablet fluticasone 500 mcg-salmeterol 50 1 inh inhalation BID #60 ea 11/12/24 11/12/24 Rx mcg/dose blistr powdr for inhalation (Advair Diskus) montelukast 10 mg tablet 10 mg PO HS #30 tabs 11/12/24 11/12/24 Rx tiotropium bromide 2.5 2 puff inhalation DAILY #4 grams 11/12/24 11/12/24 Rx mcg/actuation mist for inhalation (Spiriva Respimat) Past Med/Surg History Problem List (Updated 11/14/24 @ 17:12 by Jose Rueda MD) Type 2 diabetes mellitus Lumbar back pain with radiculopathy affecting left lower extremity Intractable low back pain (Acute) Viral gastroenteritis Hypomagnesemia (Acute) Acute kidney injury superimposed on chronic kidney disease (Acute) Sepsis (Acute) Acute dyspnea (Acute) Contusion of left chest wall (Acute) Cough (Acute) Abrasion of knee, left (Acute) Chest wall contusion (Acute) Fall (Acute) Left-sided chest wall pain (Acute) Ex-smoker Alveolar emphysema of lung Peripheral eosinophilia Asthma-COPD overlap syndrome Hypoxia (Acute) Proteinuria Vitamin D deficiency Stage 3b chronic kidney disease Coronavirus infection (Acute) Lab test negative for COVID-19 virus (Acute) Cough (Acute) Hypoxemia (Acute) Bronchitis (Acute) Acute exacerbation of chronic obstructive pulmonary disease (COPD) 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 (Acute) COVID Left breast mass (Acute) Hypertension (Acute) Acute hypoxic respiratory failure Hyperlipidemia Substernal precordial chest pain (Acute) SOB (shortness of breath) (Acute) Mitral regurgitation Calculus of proximal left ureter (Acute) Hydronephrosis due to obstruction of ureter (Acute) Vision loss of left eye (Chronic) Medical History Hypoxic Pneumonia due to COVID-19 virus Hyperglycemia Leukocytosis Chest pain Acute kidney injury superimposed on CKD Cervical pain (neck) Pulmonary nodules Dyspnea on exertion Orthopnea Osteoarthritis Nephrolithiasis Surgical History Hx of cystoscopy STENT INSERTION AND NOW HAS CHRONIC PAIN IN LEFT LEG SINCE SURGERY H/O eye surgery RETINA REPAIR IN BOTH EYES Family History Father Congestive heart failure Mother Cancer Social History Smoking Status: Former smoker Tobacco Type: Cigarettes Second Hand Exposure: No; Do You Dip or Chew Tobacco: No; Hx Alcohol Use: No Hx Substance Use: No Preferred Language: Tanzanian Communication Ability: Effective Visual Impairment: Partially Limited Print Line Tailer Required: No Beliefs That Will Affect Care: None marital status: / Current Living Situation: Family current occupational status: retired How many Children do You have: 3 Feels Safe at Home: Yes Diet: diabetic during the past year weight has: remained stable Assistive Devices: None, Cane and Walker Review of Systems 2 Review of Systems: Constitutionalno fever or chills ENTno blurred vision, no double vision, no epistaxis, no sore throat Respiratoryno cough, no wheezing, no shortness of breath Cardiacno palpitations, no chest pain, no syncope Adele nausea, vomiting, diarrhea, melena, hematochezia GUno urinary retention, no urinary incontinence, no dysuria, no hematuria Musculoskeletalno joint pain, no muscle tenderness. Lumbar pain radiating to the left leg with weightbearing Skinno bruising, no rashes, no pruritus Neurono isolated weakness, no paresthesia, no weakness Psychno depression, no anxiety Physical Exam 2 Physical Exam: General-alert and oriented x3, no fever, no chills HEENT-head atraumatic and normocephalic, pupils equal and reactive to light, extraocular muscles intact Neck-no lymphadenopathy or thyromegaly, trachea midline Chest-clear to auscultation. No rales, wheezing or rhonchi Cardiac-regular rate and rhythm, normal S1 and S2 Abdomen-normal bowel sounds, no hepatosplenomegaly Extremities-no cyanosis, clubbing, or edema Neuro-cranial nerves II through XII intact, motor and sensory function within normal limits, strength symmetrical, no focal deficits Psych-normal affect, normal mood Results & Data Results & Data Vital Signs (Past 12 Hours) Vital Signs Temp Pulse Pulse Resp BP BP Pulse Ox 11/14/24 15:00 75 17 126/87 94 11/14/24 13:26 93 11/14/24 12:01 36.8 C 94 H 24 135/78 92 O2 Del Method 11/14/24 15:00 Room Air 11/14/24 13:26 Room Air 11/14/24 12:01 Room Air Laboratory Results 11/14/24 13:13 11/14/24 13:13 Code Status & VTE Plan Code Status Full code PG Care Time/CCT Total # of Minutes Spent Total Time Spent with Patient: Total time spent is greater than 50% in coordination of care (as documented) at patient's floor/unit and/or counseling patient: Coding Level of Care Code 84296 INT INP/OBS CARE 3/75MIN Diagnoses Lumbar back pain with radiculopathy affecting left lower extremity M54.16 Stage 3b chronic kidney disease N18.32 Hypertension I10 Hypertension type: unspecified Type 2 diabetes mellitus E11.9 (3) Hypertension Hypertension type: unspecified Qualified Code(s): I10 - Essential (primary) hypertension
[2024-11-14] MEDS ORDERED: GLUCOSE 10 TAB/TUBE PO PRN (21:47)
[2024-11-14] MEDS ORDERED: CARBOHYDRATES FOR HYPOGLYCEMIA PO PRN (21:47)
[2024-11-14] MEDS ORDERED: GLUCOSE 40% GEL 15 GM TUBE PO PRN (21:47)
[2024-11-14] MEDS ORDERED: methylPREDNISolone 10 mg/mL (For Ped Dose < 7mg) IV SCH (21:47)
[2024-11-14] MEDS ORDERED: ONDANSETRON INJ 2 MG/ML 2 ML VIAL IV PRN (21:47)
[2024-11-14] MEDS ORDERED: FLUTICASONE/SALMETEROL (ADVAIR) 500/50 INH 14 PUFF INH SCH (21:47)
[2024-11-14] MEDS ORDERED: GLUCAGON FOR INJ 1 MG VIAL SQ PRN (21:47)
[2024-11-14] MEDS ORDERED: traZODone HCL 50 MG TAB PO PRN (21:47)
[2024-11-14] MEDS ORDERED: DEXTROSE 50% 50 ML SYRINGE IV PRN (21:47)
[2024-11-14] MEDS ORDERED: PHARMACY GLYCEMIC MGMT CONSULT PRN (22:35)
[2024-11-14] MEDS: INSULIN ASPART PER UNIT CHARGE SC SCH (22:46)
[2024-11-14] MEDS: glipiZIDE 5 MG TAB PO SCH (22:47)
[2024-11-14] MEDS: PRAVASTATIN SOD 40 MG TAB PO SCH (22:47)
[2024-11-14] MEDS: amLODIPine BESYLATE 5 MG TAB PO SCH (22:47)
[2024-11-14] MEDS: METOPROLOL TARTRATE 25 MG TAB PO SCH (22:47)
[2024-11-14] MEDS: methylPREDNISolone 40 MG in SYRINGE 0 ML IV SCH (22:48)
[2024-11-14] MEDS: MONTELUKAST SODIUM 10 MG TABLET PO SCH (22:48)
[2024-11-14] MEDS: POTASSIUM CHLORIDE CRTAB 20 MEQ TABCR PO SCH (22:50)
[2024-11-15] MEDS: INSULIN ASPART PER UNIT CHARGE SC SCH ×2 (01:52→08:24)
[2024-11-15] MEDS: INSULIN HUMAN REGULAR PER UNIT 10 UNITS in SYRINGE 9.9 ML IV ONE (01:53)
[2024-11-15] MEDS: LANTUS PER UNIT CHARGE SC ONE (01:53)
[2024-11-15] MEDS: INSULIN ASPART PER UNIT CHARGE SC ONE (04:37)
[2024-11-15 07:00] VITALS: BP 154/78; PULSE 82; RESP 18; TEMP 98.1; O2SAT 93
[2024-11-15] MEDS: oxyCODONE HCL IR 5 MG TAB (IMMEDIATE RELEASE) PO STA (07:34)
[2024-11-15] MEDS: lisinopril 10 MG TAB PO SCH (08:19)
[2024-11-15] MEDS: ASPIRIN 81 MG ECTAB PO SCH (08:19)
[2024-11-15] MEDS: PANTOprazole 40 MG TAB PO SCH (08:19)
[2024-11-15] MEDS: UMECLIDINIUM BROMIDE 62.5MCG/BLISTER 7 PUFFS/INHALER INH SCH (08:20)
[2024-11-15] MEDS ORDERED: SITAGLIPTIN 50 MG PO SCH (09:00)
--- NOTE | 2024-11-15 11:09 | Discharge Summary ---
Discharge Summary Date of Service November 15, 2024 Principal Dx & Hospital Course #1 = Principal Diagnosis (1) Lumbar back pain with radiculopathy affecting left lower extremity: Treated while hospitalized with parenteral steroid therapy. Improved overall. He will be discharged on a prednisone tapering dose. Will use oxycodone on a as needed basis at discharge for any recurrent pain (2) Stage 3b chronic kidney disease: Monitor intake and output. Serial labs (3) Hypertension: Stable. Continue current medications (4) Type 2 diabetes mellitus: ADA diet. Sliding scale coverage as needed Plan Home today, November 15, on a prednisone 10 mg tapering dose along with as needed oxycodone Admission HPI Per Admitting Provider 79-year-old white male who is standing peeling potatoes when he developed lumbar pain and has left lower extremity paresthesia in the thigh region. He denies any weakness. He says his pain is worse with weightbearing. CT scan of the lumbar spine and CT abdomen pelvis reveal degenerative disc disease with mild to moderate facet arthropathy. It appears he has lumbar radiculopathy and has been started on parenteral steroid therapy. Pain control measures ordered. Undoubtedly the parenteral steroids will aggravate his glucose levels. Sliding scale coverage ordered. Discharge Exam General-alert and oriented x3, no fever, no chills HEENT-head atraumatic and normocephalic, pupils equal and reactive to light, extraocular muscles intact Neck-no lymphadenopathy or thyromegaly, trachea midline Chest-clear to auscultation. No rales, wheezing or rhonchi Cardiac-regular rate and rhythm, normal S1 and S2 Abdomen-normal bowel sounds, no hepatosplenomegaly Extremities-no cyanosis, clubbing, or edema Neuro-cranial nerves II through XII intact, motor and sensory function within normal limits, strength symmetrical, no focal deficits Psych-normal affect, normal mood Discharge Plan Discharge Items Patient Disposition: Home - Self-Care Reason For Visit: LUMBAR PAIN Discharge Diagnosis: Lumbar radiculopathy, low back pain Condition on Discharge: Good Activity: Resume your previous activity Non-emergency contact: Primary Care Provider Call non-emergency contact if: your symptoms worsen Follow-up/Referrals: Juanita Carlson PA-C [Primary Care Provider] - Diet: Carb Consistent or DM2 and Heart Healthy Addtl Attending Provider Instructions: Take prednisone in a tapering dose fashion as directed. Use oxycodone every 6 hours as needed for recurrent back pain. All other medications remain the same. Prescriptions have been sent to your pharmacy at [facility] [address] Pending Studies at Discharge: No Stand-Alone Forms: [facility], Smoking Cessation Medications and DC Order Prescriptions: New oxycodone 5 mg Tablet 5 mg PO Q6H PRN (Reason: pain) Qty: 20 0RF prednisone 10 mg tablet See Rx Instructions .ROUTE .COMPLEX Qty: 12 0RF Rx Instructions: 10 mg orally 3 times a day for 2 days, then 10 mg twice a day for 2 days, then 10 mg once a day for 2 days, then stop oxycodone 5 mg tablet 5 mg PO Q6H PRN (Reason: pain) Qty: 20 0RF Continued cetirizine 10 mg tablet 10 mg PO DAILY aspirin 81 mg tablet,delayed release (DR/EC) 81 mg PO DAILY dapagliflozin propanediol [Farxiga] 10 mg tablet 10 mg PO DAILY Qty: 90 3RF fluticasone propion-salmeterol [Advair Diskus] 500-50 mcg/dose blister with device 1 inh inhalation BID Qty: 60 7RF montelukast 10 mg tablet 10 mg PO HS Qty: 30 7RF cholecalciferol (vitamin D3) 2,000 unit Capsule 2,000 unit PO QAM pravastatin 40 mg Tablet 40 mg PO HS potassium chloride 20 mEq Tablet Extended Release 20 meq PO BID cyanocobalamin (vitamin B-12) [Vitamin B-12] 500 mcg Tablet 500 mcg PO Q OTHER DAY glipizide 10 mg Tablet 5 mg PO DAILY acetaminophen 500 mg Tablet 500 mg PO Q6H PRN (Reason: Pain) metoprolol tartrate 50 mg Tablet 25 mg PO BID fluticasone propionate 50 mcg/actuation spray,suspension 2 spray INTRANASAL BID sitagliptin 50 mg Tablet 50 mg PO DAILY amlodipine 5 mg tablet 5 mg PO BID pantoprazole 40 mg Tablet,Delayed Release (Dr/Ec) 40 mg PO QAM Qty: 30 0RF Psyllium Or Guar Gum Fiber Sup [Metamucil Or Nutrisource Fiber Supplement] 4 g PO BID Qty: 0 0RF Discontinued oxycodone 5 mg tablet 2.5 mg PO Q8H PRN (Reason: pain) Qty: 10 0RF Discharge Orders: Discharge Order (Routine); Ordered 11/15/24 Ordered By: Jose Rueda Admission Data Admit Date/Time: 11/14/24 18:04 Attending Provider: Jose Rueda Admit Provider: Jose Rueda Primary Care Provider: Juanita Carlson Other Providers: Jose Rueda Hospital Stay Data Consultations 11/14/24 16:01 ED Decision to Admit Stat Diagnostic Imagining Performed 11/14/24 13:06 CT abd pelvis wo con Stat CT lumbar spine wo con Stat Pending Results Patient Have Any Pending Studies at Discharge: No Discharge Instructions Given to Patient (Per Discharging Provider) Take prednisone in a tapering dose fashion as directed. Use oxycodone every 6 hours as needed for recurrent back pain. All other medications remain the same. Prescriptions have been sent to your pharmacy at [facility] on [facility] Total Time Total Time Spent Total Time Spent (In Minutes): 45 minutes Coding Level of Care Code 07378 INP/OBS DISCH >30 MIN Diagnoses Lumbar back pain with radiculopathy affecting left lower extremity M54.16 Stage 3b chronic kidney disease N18.32 Hypertension I10 Hypertension type: unspecified Type 2 diabetes mellitus E11.9
[2024-11-15] MEDS: oxyCODONE HCL IR 5 MG TAB (IMMEDIATE RELEASE) PO PRN (11:14)
== END 2024-11-15 14:02 | disposition home or self-care (01) | DRG 552 ==
LOC: SUATTDRO → ED 11:54 → 3W 18:04

== ENCOUNTER 2025-01-10 17:41 | Inpatient (IN) ==
--- NOTE | 2025-01-10 18:04 | Emergency Department Note ---
Impression & Plan Hypoxia, SOB (shortness of breath), COPD exacerbation, Flu-like symptoms, SILVERIO (dyspnea on exertion) ED Provider Note NAME: AMI ALONSO AGE: 79 SEX: M : 1945 ARRIVES VIA: Walk-In INFORMANT: [Patient] ED PROVIDER(S): [Raulito Watters MD] CHIEF COMPLAINT: Cough, short of breath HISTORY OF PRESENT ILLNESS: The patient is a 79-year-old male whose had 2, maybe 3 days of shortness of breath and cough. The patient states that he has had a sore throat, some ear pain, a cough and some shortness of breath. No fever. His cough is productive. No vomiting, no diarrhea. The patient does carry history of COPD. In addition, the patient has some pain to the dorsum of the right hand. He had a dog bite along the hand a few weeks ago, he is concerned that is not healing properly. As per nursing staff, the patient's O2 saturation dropped to 88% with minimal exertion while in the room. They placed him on nasal cannula oxygen. He wears O2 at night only PMHx/PSHx/Social Hx: See Below PHYSICAL EXAM: GENERAL: Patient is in no acute distress. HEENT: No acute trauma, normocephalic atraumatic, mucous membranes moist, no nasal congestion. TMs do not show findings of infection, no TM erythema. NECK: No stridor, no adenopathy, no meningismus, trachea is midline. LUNGS: Diminished breath sounds with wheezing and some crackles bilaterally, the crackles are more so on the right. Dry cough noted. HEART: Without murmurs gallops or rubs, regular rate and rhythm. Heart tones distant ABDOMEN: Soft, nontender, no peritonitis. EXTREMITIES: No cyanosis, full range of motion of all the joints without pain or difficulty. Mild bilateral pedal edema. Patient does have some erythema and soreness to palpate the dorsum of the right hand. No warmth. No drainage. No pain when the fingers are moved. NEUROLOGIC: Oriented x 3, no acute motor or sensory deficits, no focal weakness. SKIN: No jaundice, no diaphoresis. DIFFERENTIAL DIAGNOSIS: Bronchitis or pneumonia, viral illness, COPD flare, cardiac ischemia, CHF, cellulitis, among others. EMERGENCY DEPARTMENT PROCEDURES: MEDICAL DECISION MAKING: There is a moderate leukocytosis, looking back at previous testing, this has been the case lately. There was a normal hemoglobin. The platelet count was normal. No coagulopathy. Creatinine was somewhat elevated although baseline looking at recent testing. No concerning liver enzyme elevation. BNP was not elevated making CHF unlikely. ECG showed a sinus rhythm, no obvious ischemia. Cardiac enzyme testing x 1 was not consistent with acute cardiac injury. COVID, influenza and RSV test were negative. Chest x-ray shows congestion to both lower lungs but no obvious focal infiltrate. There is no pneumothorax. On exam, the patient was hypoxic with minimal exertion. He had wheezing and crackles bilaterally. A dry cough was noted. Patient was given a Xopenex neb, a second Xopenex neb was given. He was given IV ceftriaxone as antibiotic coverage. He was given IV Solu-Medrol to help with bronchospasm. The patient presents short of breath, hypoxic, he is dyspneic on exertion. He likely has a bronchitis or possibly an early pneumonia causing a flare of his COPD. Hospitalization is indicated. I spoke with the patient and case management, the on-call hospitalist was consulted. Prior/Outside records/notes reviewed: None ECG per my interpretation: Indication was shortness of breath. The ECG showed a sinus rhythm with a first-degree AV block. The rate is 66. There is a right bundle branch block. LVH is present. There is no acute ST elevation, no PVCs. The QTc is 427. There is a potential old inferior infarct. Continuous Cardiac Monitoring per my interpretation: An order was placed for continuous cardiac monitoring. The monitor shows a rate of 71 with sinus rhythm with a first AV block. Imaging/x-ray results per my interpretation: Chest x-ray shows some bilateral lower lung parenchymal congestion, more so on the left. No pneumothorax. Chronic Medical/Social conditions affecting care: History of COPD, advanced age. Care/Management discussed with: Case management, the on-call hospitalist. Level of care consideration(s): After review of the information above and other included data: --I believe the patient requires escalation of care to admission DISPOSITION: Admission Past Med/Surg History Problem List SILVERIO (dyspnea on exertion) (Acute) Flu-like symptoms (Acute) COPD exacerbation (Acute) SOB (shortness of breath) (Acute) Hypoxia (Acute) Hand lesion (Acute) Cellulitis (Acute) Anemia Stage 3b chronic kidney disease Lumbar back pain with radiculopathy affecting left lower extremity Intractable low back pain (Acute) Viral gastroenteritis Hypomagnesemia (Acute) Acute kidney injury superimposed on chronic kidney disease (Acute) Sepsis (Acute) Acute dyspnea (Acute) Contusion of left chest wall (Acute) Cough (Acute) Abrasion of knee, left (Acute) Chest wall contusion (Acute) Fall (Acute) Left-sided chest wall pain (Acute) Ex-smoker Alveolar emphysema of lung Peripheral eosinophilia Asthma-COPD overlap syndrome Hypoxia (Acute) Proteinuria Vitamin D deficiency Coronavirus infection (Acute) Lab test negative for COVID-19 virus (Acute) Cough (Acute) Hypoxemia (Acute) Bronchitis (Acute) Acute exacerbation of chronic obstructive pulmonary disease (COPD) 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 (Acute) COVID Left breast mass (Acute) Acute hypoxic respiratory failure Hyperlipidemia Substernal precordial chest pain (Acute) SOB (shortness of breath) (Acute) Mitral regurgitation Calculus of proximal left ureter (Acute) Hydronephrosis due to obstruction of ureter (Acute) Vision loss of left eye (Chronic) Medical History Type 2 diabetes mellitus Hypertension CHRISTIAN (obstructive sleep apnea) COPD (chronic obstructive pulmonary disease) CKD (chronic kidney disease) stage 3, GFR 30-59 ml/min Diabetes mellitus, type II Hypoxic Pneumonia due to COVID-19 virus Hyperglycemia Leukocytosis Chest pain Acute kidney injury superimposed on CKD Cervical pain (neck) Pulmonary nodules Dyspnea on exertion Orthopnea Osteoarthritis Nephrolithiasis Surgical History Hx of cystoscopy STENT INSERTION AND NOW HAS CHRONIC PAIN IN LEFT LEG SINCE SURGERY H/O eye surgery RETINA REPAIR IN BOTH EYES Family History Father Congestive heart failure Mother Cancer Social History Smoking Status: Never smoker Tobacco Type: Cigarettes Second Hand Exposure: No; Do You Dip or Chew Tobacco: No; Hx Alcohol Use: No Hx Substance Use: No Preferred Language: German Communication Ability: Effective Visual Impairment: Partially Limited 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 Required: No Beliefs That Will Affect Care: None marital status: / Current Living Situation: Alone current occupational status: retired How many Children do You have: 3 Feels Safe at Home: Yes Diet: diabetic during the past year weight has: remained stable Assistive Devices: Glasses Allergies Allergies Allergy/AdvReac Type Severity Reaction Status Date / Time Influenza Virus Vaccines Allergy Severe Shortness Verified 12/01/24 09:23 of breath ipratropium [From Combivent] Allergy Unknown On med Unverified 12/01/24 09:23 list from [facility] atorvastatin AdvReac Intermediate Cramping Verified 12/01/24 09:23 of the Muscles simvastatin AdvReac Intermediate Cramping Verified 12/01/24 09:23 of the Muscles Unknown antibiotic AdvReac visual Uncoded 12/01/24 09:23 disturbance/diarrhea Home Meds Home Medications Medication Instructions Recorded Confirmed cholecalciferol (vitamin D3) 50 2,000 unit PO QAM 09/20/18 12/01/24 mcg (2,000 unit) capsule pravastatin 40 mg tablet 40 mg PO HS 09/20/18 12/01/24 aspirin 81 mg tablet,delayed 81 mg PO DAILY 06/20/21 12/01/24 release cetirizine 10 mg tablet 10 mg PO DAILY 06/20/21 12/01/24 cyanocobalamin (vitamin B-12) 500 500 mcg PO Q OTHER DAY 03/28/22 12/01/24 mcg tablet (Vitamin B-12) acetaminophen 500 mg tablet 500 mg PO Q6H PRN Pain 09/17/24 12/01/24 fluticasone propionate 50 2 spray intranasal BID 09/17/24 12/01/24 mcg/actuation nasal spray,suspension glipizide 10 mg tablet 5 mg PO DAILY 09/17/24 12/01/24 metoprolol tartrate 50 mg tablet 25 mg PO BID 09/17/24 12/01/24 sitagliptin 50 mg tablet 50 mg PO DAILY 09/17/24 12/01/24 albuterol sulfate 90 mcg/actuation 2 puff inhalation QID PRN 12/01/24 12/01/24 aerosol inhaler shortness of breath or wheezing amlodipine 5 mg tablet 5 mg PO DAILY 12/01/24 12/01/24 potassium chloride 20 mEq 20 meq PO DAILY 12/01/24 12/01/24 tablet,extended release Previous Rx's Medication Instructions Recorded dapagliflozin propanediol 10 mg 10 mg PO DAILY #90 tabs 10/01/24 tablet (Farxiga) pantoprazole 40 mg tablet,delayed 40 mg PO QAM #30 tabs 10/12/24 release PSYLLIUM or GUAR GUM FIBER SUP 4 g PO BID ##0 10/30/24 [METAMUCIL or NUTRISOURCE FIBER SUPPLEMENT] fluticasone 500 mcg-salmeterol 50 1 inh inhalation BID #60 ea 11/12/24 mcg/dose blistr powdr for inhalation (Advair Diskus) montelukast 10 mg tablet 10 mg PO HS #30 tabs 11/12/24 oxycodone 5 mg tablet 5 mg PO Q6H PRN pain #20 tabs 11/15/24 oxycodone 5 mg tablet 5 mg PO Q6H PRN pain #20 tabs 11/15/24 lisinopril 10 mg tablet 10 mg PO DAILY #90 tabs 12/01/24 Results & Data (ED) Vital Signs Vital Signs - 24 hr 01/10/25 17:44 01/10/25 17:56 01/10/25 18:00 Temperature 36.7 C Temperature Source Skin Pulse Rate 74 71 Pulse Rate [Right Finger] Respiratory Rate 19 Respiratory Effort / Characteristics Non-Labored Spontaneous Respiratory Depth Normal Respiratory Pattern Regular Blood Pressure 155/82 H Blood Pressure [Right Arm] Blood Pressure Mean 106 Blood Pressure Mean [Right Arm] Pulse Oximetry 93 88 L Oxygen Delivery Method Room Air Room Air Oxygen Flow Rate Sepsis Recent Fever Within 48 Hours No Sepsis New/Unexplained Change in Mental Status N/A Sepsis Action Taken by Nursing No Action Required Oxygen Flow Rate - Titration 2 Pulse Oximetry Post Tiitration 95 01/10/25 18:24 01/10/25 18:36 01/10/25 19:08 Temperature Temperature Source Pulse Rate Pulse Rate [Right Finger] 68 Respiratory Rate 28 H Respiratory Effort / Characteristics Non-Labored Spontaneous Non-Labored Spontaneous Respiratory Depth Normal Normal Respiratory Pattern Regular Regular Blood Pressure Blood Pressure [Right Arm] 154/77 H Blood Pressure Mean Blood Pressure Mean [Right Arm] 102 Pulse Oximetry 89 L Oxygen Delivery Method Nasal Cannula Room Air Oxygen Flow Rate 2 Sepsis Recent Fever Within 48 Hours Sepsis New/Unexplained Change in Mental Status Sepsis Action Taken by Nursing Oxygen Flow Rate - Titration Pulse Oximetry Post Tiitration 01/10/25 19:10 Temperature Temperature Source Pulse Rate Pulse Rate [Right Finger] Respiratory Rate Respiratory Effort / Characteristics Respiratory Depth Respiratory Pattern Blood Pressure Blood Pressure [Right Arm] Blood Pressure Mean Blood Pressure Mean [Right Arm] Pulse Oximetry Oxygen Delivery Method Nasal Cannula Oxygen Flow Rate 2 Sepsis Recent Fever Within 48 Hours Sepsis New/Unexplained Change in Mental Status Sepsis Action Taken by Nursing Oxygen Flow Rate - Titration Pulse Oximetry Post Tiitration 92 Home Medications Current Medication List: was personally reviewed by me Laboratory Data Attestation: I reviewed the patient's lab results. 01/10/25 18:28 01/10/25 18:28 Lab Results 01/10/25 01/10/25 Range/Units 18:28 18:30 WBC 14.62 H (4.8-10.8) K/ul RBC 4.97 (4.70-6.10) M/uL Hgb 17.1 (14.0-18.0) g/dl Hct 48.0 (42.0-52.0) % MCV 96.6 (80.0-100.0) fL MCH 34.4 H (25.0-34.0) pg MCHC 35.6 (32.0-36.0) g/dL RDW Std Deviation 53.3 H (36.4-46.3) fL RDW Coeff of Mark 17.4 H (11.5-14.5) % Plt Count 231 (130-400) K/uL MPV 9.4 (9.4-12.4) fL Immature Gran % (Auto) 0.5 % Neut % (Auto) 62.9 % Lymph % (Auto) 25.0 % Bremer % (Auto) 7.1 % Eos % (Auto) 4.0 % Baso % (Auto) 0.5 % Neut # (Auto) 9.19 H (1.40-6.50) K/uL Lymph # (Auto) 3.65 H (1.20-3.40) K/uL Bremer # (Auto) 1.04 H (0.11-0.59) K/uL Eos # (Auto) 0.59 H (0.00-0.50) K/uL Baso # (Auto) 0.07 (0.00-0.20) K/uL Immature Gran # (Auto) 0.08 (0.01-0.20) K/uL PT 10.1 (9.0-12.0) Seconds INR 0.9 (0.9-1.1) APTT 26 (21-31) Seconds PTT Ratio 1.0 Sodium 139 (136-145) mmol/L Potassium 3.9 (3.5-5.1) mmol/L Chloride 105 (98-107) mmol/L Carbon Dioxide 28 (21-32) mmol/L Anion Gap 6 (3-11) BUN 23 (6-23) mg/dl Creatinine 1.70 H (0.6-1.4) mg/dl Est Cr Clr Drug Dosing 38.3 ml/min eGFR 40.50 BUN/Creatinine Ratio 13.5 (10-20) Glucose 76 (70-99(Fasting)) mg/dl Calcium 10.0 (8.6-10.3) mg/dl Magnesium 2.2 (1.7-2.4) mg/dl Total Bilirubin 0.8 (0.2-1.0) mg/dl AST 17 (13-39) U/L ALT 11 (7-52) U/L Alkaline Phosphatase 95 (34-104) U/L Troponin I High Sens 9.1 (0-20) pg/ml B-Natriuretic Peptide 29 (0-100) pg/ml Total Protein 7.7 (6.0-8.3) gm/dl Albumin 4.2 (3.4-5.0) gm/dl Globulin 3.5 (2.5-4.0) gm/dl Albumin/Globulin Ratio 1.2 (0.9-2) SARS-CoV-2 (PCR) NEGATIVE (Negative) Influenza Type A (PCR) Negative (Neg) Influenza Type B (PCR) Negative (Neg) RSV (RT-PCR) Negative (Neg) Administered Medications Ceftriaxone Sodium (Rocephin) 2,000 mg in 50 mls @ 100 mls/hr IV NOW STA Stop: 01/10/25 20:25 Last Admin: 01/10/25 20:05 Dose: 100 mls/hr Documented By: REINAM Discontinued Medications Levalbuterol HCl (Levalbuterol 1.25 Mg/3 Ml Neb) 1.25 mg NEB NOW STA Stop: 01/10/25 18:00 Last Admin: 01/10/25 18:39 Dose: 1.25 mg Documented By: NRB Levalbuterol HCl (Levalbuterol 1.25 Mg/3 Ml Neb) 1.25 mg NEB NOW STA Stop: 01/10/25 19:21 Last Admin: 01/10/25 20:10 Dose: 1.25 mg Documented By: ANNE Methylprednisolone (Methylprednisolone 125 Mg/2 Ml Vial) 60 mg IV NOW STA Stop: 01/10/25 17:59 Last Admin: 01/10/25 18:36 Dose: 60 mg Documented By: NRB Imaging Data Radiologist's Impression: Chest X-Ray 01/10/25 17:51 Single view of the chest at 5:53 PM compared to 10/28/2024. Minimal cardiac enlargement. Increased interstitial markings, almost similar to No discrete consolidation. No pleural effusion or pneumothorax. Central airways are patent. Impression Increased interstitial markings bilaterally similar to prior, this could be a chronic process. Electronically signed by Davi Dover 01-10-2025 6:07 PM Discharge Plan Visit Data Chief Complaint: Shortness of Breath/Dyspnea Stated Complaint: SOB,EARACHE,SORE THROAT,WHEEZING,TIGHTNESS IN [facility] ED Provider: Raulito Watters Discharge Problem: Hypoxia, SOB (shortness of breath), COPD exacerbation, Flu-like symptoms, SILVERIO (dyspnea on exertion) Patient Disposition: Admitted As Inpatient Condition: Fair Forms Stand Alone Forms: My [facility] Prescriptions Prescriptions: No Action cetirizine 10 mg tablet 10 mg PO DAILY aspirin 81 mg tablet,delayed release (DR/EC) 81 mg PO DAILY dapagliflozin propanediol [Farxiga] 10 mg tablet 10 mg PO DAILY Qty: 90 3RF fluticasone propion-salmeterol [Advair Diskus] 500-50 mcg/dose blister with device 1 inh inhalation BID Qty: 60 7RF montelukast 10 mg tablet 10 mg PO HS Qty: 30 7RF potassium chloride 20 mEq tablet extended release 20 meq PO DAILY amlodipine 5 mg tablet 5 mg PO DAILY lisinopril 10 mg tablet 10 mg PO DAILY Qty: 90 3RF albuterol sulfate 90 mcg/actuation HFA aerosol inhaler 2 puff inhalation QID PRN (Reason: shortness of breath or wheezing) cholecalciferol (vitamin D3) 2,000 unit Capsule 2,000 unit PO QAM pravastatin 40 mg Tablet 40 mg PO HS cyanocobalamin (vitamin B-12) [Vitamin B-12] 500 mcg Tablet 500 mcg PO Q OTHER DAY glipizide 10 mg Tablet 5 mg PO DAILY acetaminophen 500 mg Tablet 500 mg PO Q6H PRN (Reason: Pain) metoprolol tartrate 50 mg Tablet 25 mg PO BID fluticasone propionate 50 mcg/actuation spray,suspension 2 spray INTRANASAL BID sitagliptin 50 mg Tablet 50 mg PO DAILY pantoprazole 40 mg Tablet,Delayed Release (Dr/Ec) 40 mg PO QAM Qty: 30 0RF Psyllium Or Guar Gum Fiber Sup [Metamucil Or Nutrisource Fiber Supplement] 4 g PO BID Qty: 0 0RF oxycodone 5 mg Tablet 5 mg PO Q6H PRN (Reason: pain) Qty: 20 0RF oxycodone 5 mg tablet 5 mg PO Q6H PRN (Reason: pain) Qty: 20 0RF Referrals Referrals: Juanita Carlson PA-C [Primary Care Provider] -
--- NOTE | 2025-01-10 18:08 | XRay Report ---
Single view of the chest at 5:53 PM compared to 10/28/2024. Minimal cardiac enlargement. Increased interstitial markings, almost similar to No discrete consolidation. No pleural effusion or pneumothorax. Central airways are patent. Impression Increased interstitial markings bilaterally similar to prior, this could be a chronic process. Electronically signed by Davi Dover 01-10-2025 6:07 PM
[2025-01-10] MEDS: methylPREDNISolone 125 MG/2 ML VIAL IV STA (18:36)
[2025-01-10] MEDS: LEVALBUTEROL 1.25 MG/3 ML NEB NEB STA ×2 (18:39→20:10)
[2025-01-10 19:16] LABS: Basophils # (auto) 0.07 K/uL (0.00-0.20); Basophils % (auto) 0.5 %; Eosinophils # (auto) 0.59 K/uL (0.00-0.50); Hemoglobin 17.1 g/dl (14.0-18.0); Immature Granulocytes # (auto) 0.08 K/uL (0.01-0.20); Immature Granulocytes % (auto) 0.5 %; Lymphocytes # (auto) 3.65 K/uL (1.20-3.40); Mean Corpuscular Hemoglobin 34.4 pg (25.0-34.0); Mean Corpuscular Hgb Conc 35.6 g/dL (32.0-36.0); Mean Corpuscular Volume 96.6 fL (80.0-100.0); Mean Platelet Volume 9.4 fL (9.4-12.4); Monocytes # (auto) 1.04 K/uL (0.11-0.59); Monocytes % (auto) 7.1 %; Neutrophils # (auto) 9.19 K/uL (1.40-6.50); Neutrophils % (auto) 62.9 %; Platelet Count 231 K/uL (130-400); RDW Coefficient of Variation 17.4 % (11.5-14.5); RDW Standard Deviation 53.3 fL (36.4-46.3); Red Blood Count 4.97 M/uL (4.70-6.10); White Blood Count 14.62 K/ul (4.8-10.8)
[2025-01-10 19:39] LABS: Albumin Globulin Ratio 1.2 (0.9-2); Albumin Level 4.2 gm/dl (3.4-5.0); BUN Creatinine Ratio 13.5 (10-20); Bilirubin,Total 0.8 mg/dl (0.2-1.0); Creatinine Clr Calc Pharmacy 38.3 ml/min; Globulin 3.5 gm/dl (2.5-4.0); Magnesium 2.2 mg/dl (1.7-2.4); Potassium 3.9 mmol/L (3.5-5.1); Total Protein 7.7 gm/dl (6.0-8.3)
[2025-01-10 19:44] LABS: Troponin I High Sensitivity 9.1 pg/ml (0-20)
[2025-01-10 19:46] LABS: Influenza A virus by PCR Negative (Neg); Influenza B virus by PCR Negative (Neg); RSV by PCR Negative (Neg); SARS CoV2 RNA(COVID-19) Ceph NEGATIVE (Negative)
[2025-01-10 19:51] LABS: INR 0.9 (0.9-1.1); Partial Thromboplastin Time 26 Seconds (21-31); Prothrombin Time 10.1 Seconds (9.0-12.0)
[2025-01-10] MEDS: cefTRIAXone SODIUM 2,000 MG/50 ML BAG IV STA (20:05)
--- NOTE | 2025-01-10 20:23 | History & Physical Report ---
Date of Service January 10, 2025 Assessment & Plan (1) Acute hypoxic respiratory failure: (2) COPD exacerbation: (3) SOB (shortness of breath): (4) Hand lesion: (5) Stage 3b chronic kidney disease: (6) Lumbar back pain with radiculopathy affecting left lower extremity: (7) Hyperlipidemia: (8) CKD (chronic kidney disease): (9) Type 2 diabetes mellitus: (10) CHRISTIAN (obstructive sleep apnea): Plan 79 year old male with PMHx that includes COPD, CKD, HTN, T2DM, CHRISTIAN and HLD prese nting with worsening shortness of breath: #AHRF // COPD exacerbation: Patient presenting with increased productive cough and increased supplemental O2 requirement, suspect COPD exacerbation in the setting of viral illness CXR without focal opacities, antibiotic coverage for pneumonia deferred at this time Start Azithromycin for pulmonary anti-inflammatory effect S/P IV Solumedrol 60mg in ED, continue IV Solumedrol 30mg BID starting 5/4 AM Continue home inhalers Ipratropium noted on allergy list - continue albuterol nebs Q6H Supplemental O2 as needed to maintain SpO2>90% IS/FV #Previous Dog Bite: Cyst-like lesion on dorsal right hand at site of previous dog bite - S/P tx with Augmentin and Keflex, previous evaluations without evidence of retained foreign body, does not appear actively infected - therefore, additional abx deferred at this time Patient has outpatient dermatology appointment next week for further evaluation Tylenol PRN for pain/discomfort #T2DM: Home antihyperglycemic meds held on admission BSG checks ACHS Sliding scale insulin #HLD: Continue pravastatin #HTN: Continue Lisinopril, amlodipine #CHRISTIAN: CPAP qHS #Allergic Rhinits: Continue home Zyrtec and Singulair Admit: Med/surg Diet: CC, Renal VTE ppx: Heparin DNR/DNI History of Present Illness Primary Care Provider: Juanita Carlson PA-C 79 year old male with PMHx that includes COPD, CKD, HTN, T2DM, CHRISTIAN and HLD presenting with worsening shortness of breath. Over the past 2-3 days, patient has had worsening dyspnea in addition to cough, sore throat, and ear pressure. Notes subjective chills yesterday, no fever/chills since then. At baseline, patient is on 2L O2 only at night. Dyspnea improved with supplemental O2 and neb tx. Patient also expresses concern about poor wound healing at site of dog bite on dorsum of right hand one month ago. Patient was seen in the ED shortly after bite, had wound cleaned out and was treated with course of Augmentin. Seen again in ED 12/29 due to pain and swelling at bite location - s/p I&D with minimal output, XR also done without evidence of retained foreign body. Following I&D, completed course of Keflex. Majority of puncture wounds have healed, though one site continues to have cyst-like growth that is very tender to palpation - minim al erythema or surrounding swelling, no further drainage, denies associated fever/chills. ED Course: S/P albuterol neb x2, IV Solumedrol 60mg, and IV Ceftriaxone 2g Allergies Allergy/AdvReac Type Severity Reaction Status Date / Time Influenza Virus Vaccines Allergy Severe Shortness Verified 12/01/24 09:23 of breath ipratropium [From Combivent] Allergy Unknown On med Unverified 12/01/24 09:23 list from [facility] atorvastatin AdvReac Intermediate Cramping Verified 12/01/24 09:23 of the Muscles simvastatin AdvReac Intermediate Cramping Verified 12/01/24 09:23 of the Muscles Home Medications Medication Instructions Recorded Confirmed Type cholecalciferol (vitamin D3) 50 2,000 unit PO QAM 09/20/18 12/01/24 History mcg (2,000 unit) capsule pravastatin 40 mg tablet 40 mg PO HS 09/20/18 12/01/24 History aspirin 81 mg tablet,delayed 81 mg PO DAILY 06/20/21 12/01/24 History release cetirizine 10 mg tablet 10 mg PO DAILY 06/20/21 12/01/24 History cyanocobalamin (vitamin B-12) 500 500 mcg PO Q OTHER DAY 03/28/22 12/01/24 History mcg tablet (Vitamin B-12) acetaminophen 500 mg tablet 500 mg PO Q6H PRN Pain 09/17/24 12/01/24 History fluticasone propionate 50 2 spray intranasal BID 09/17/24 12/01/24 History mcg/actuation nasal spray,suspension glipizide 10 mg tablet 5 mg PO DAILY 09/17/24 12/01/24 History metoprolol tartrate 50 mg tablet 25 mg PO BID 09/17/24 12/01/24 History sitagliptin 50 mg tablet 50 mg PO DAILY 09/17/24 12/01/24 History dapagliflozin propanediol 10 mg 10 mg PO DAILY #90 tabs 10/01/24 12/01/24 Rx tablet (Farxiga) pantoprazole 40 mg tablet,delayed 40 mg PO QAM #30 tabs 10/12/24 12/01/24 Rx release PSYLLIUM or GUAR GUM FIBER SUP 4 g PO BID ##0 10/30/24 12/01/24 Rx [METAMUCIL or NUTRISOURCE FIBER SUPPLEMENT] fluticasone 500 mcg-salmeterol 50 1 inh inhalation BID #60 ea 11/12/24 12/01/24 Rx mcg/dose blistr powdr for inhalation (Advair Diskus) montelukast 10 mg tablet 10 mg PO HS #30 tabs 11/12/24 12/01/24 Rx oxycodone 5 mg tablet 5 mg PO Q6H PRN pain #20 tabs 11/15/24 12/01/24 Rx oxycodone 5 mg tablet 5 mg PO Q6H PRN pain #20 tabs 11/15/24 12/01/24 Rx albuterol sulfate 90 mcg/actuation 2 puff inhalation QID PRN 12/01/24 12/01/24 History aerosol inhaler shortness of breath or wheezing amlodipine 5 mg tablet 5 mg PO DAILY 12/01/24 12/01/24 History lisinopril 10 mg tablet 10 mg PO DAILY #90 tabs 12/01/24 12/01/24 Rx potassium chloride 20 mEq 20 meq PO DAILY 12/01/24 12/01/24 History tablet,extended release Past Med/Surg History Problem List (Updated 01/10/25 @ 21:53 by Garret Sierra DO) CKD (chronic kidney disease) SILVERIO (dyspnea on exertion) (Acute) Flu-like symptoms (Acute) COPD exacerbation (Acute) SOB (shortness of breath) (Acute) Hypoxia (Acute) Hand lesion (Acute) Cellulitis (Acute) Anemia Stage 3b chronic kidney disease Lumbar back pain with radiculopathy affecting left lower extremity Intractable low back pain (Acute) Viral gastroenteritis Hypomagnesemia (Acute) Acute kidney injury superimposed on chronic kidney disease (Acute) Sepsis (Acute) Acute dyspnea (Acute) Contusion of left chest wall (Acute) Cough (Acute) Abrasion of knee, left (Acute) Chest wall contusion (Acute) Fall (Acute) Left-sided chest wall pain (Acute) Ex-smoker Alveolar emphysema of lung Peripheral eosinophilia Asthma-COPD overlap syndrome Hypoxia (Acute) Proteinuria Vitamin D deficiency Coronavirus infection (Acute) Lab test negative for COVID-19 virus (Acute) Cough (Acute) Hypoxemia (Acute) Bronchitis (Acute) Acute exacerbation of chronic obstructive pulmonary disease (COPD) 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 (Acute) COVID Left breast mass (Acute) Acute hypoxic respiratory failure Hyperlipidemia Substernal precordial chest pain (Acute) SOB (shortness of breath) (Acute) Mitral regurgitation Calculus of proximal left ureter (Acute) Hydronephrosis due to obstruction of ureter (Acute) Vision loss of left eye (Chronic) Medical History Type 2 diabetes mellitus Hypertension CHRISTIAN (obstructive sleep apnea) COPD (chronic obstructive pulmonary disease) CKD (chronic kidney disease) stage 3, GFR 30-59 ml/min Diabetes mellitus, type II Hypoxic Pneumonia due to COVID-19 virus Hyperglycemia Leukocytosis Chest pain Acute kidney injury superimposed on CKD Cervical pain (neck) Pulmonary nodules Dyspnea on exertion Orthopnea Osteoarthritis Nephrolithiasis Surgical History Hx of cystoscopy STENT INSERTION AND NOW HAS CHRONIC PAIN IN LEFT LEG SINCE SURGERY H/O eye surgery RETINA REPAIR IN BOTH EYES Family History Father Congestive heart failure Mother Cancer Social History Smoking Status: Never smoker Tobacco Type: Cigarettes Second Hand Exposure: No; Do You Dip or Chew Tobacco: No; Hx Alcohol Use: No Hx Substance Use: No Preferred Language: Spanish Communication Ability: Effective Visual Impairment: Partially Limited Solderer Required: No Beliefs That Will Affect Care: None marital status: / Current Living Situation: Alone current occupational status: retired How many Children do You have: 3 Feels Safe at Home: Yes Safety Concerns: Feels Safe At This Time Diet: diabetic during the past year weight has: remained stable Assistive Devices: None and Glasses Review of Systems Review of Systems: as per HPI Physical Exam Physical Exam: Constitutional: no acute distress, resting comfortably in bed with NC in place HEENT: NCAT, no conjunctival injection CV: RRR, slightly distant heart sounds, extremities well-perfused, no LE edema Resp: Bilateral expiratory wheezes appreciated in upper lung mcbride, slightly diminished breath sounds throughout GI: nondistended MSK: no gross deformities Skin: dorsum of right hand with small, subcentimeter uniformly round raised lesion, very tender to palpation, minimally erythematous but without surrounding erythema or swelling, no drainage. Neuro: alert, oriented, no focal neurologic deficit appreciated Results & Data Results & Data Vital Signs (Past 12 Hours) Vital Signs Temp Pulse Pulse Resp BP BP Pulse Ox 01/10/25 19:10 01/10/25 19:08 68 28 H 154/77 H 89 L 01/10/25 18:24 01/10/25 18:00 71 01/10/25 17:56 88 L 01/10/25 17:44 36.7 C 74 19 155/82 H 93 O2 Del Method O2 Flow Rate 01/10/25 19:10 Nasal Cannula 2 01/10/25 19:08 Room Air 01/10/25 18:24 Nasal Cannula 2 01/10/25 18:00 01/10/25 17:56 Room Air 01/10/25 17:44 Room Air Supervising Physician Co-Signing Physician Notes I personally saw and examined the patient. I independently reviewed the labs, EKG, imaging, problem list, medication list, past medical history and family history. I verified all philippe points and agree with resident physician Dr Garret Sierra DO with the following exceptions and/or additions: 79 year old male presents to the ER with shortness of breath and hypoxia. Flu- like illness for last 2 days O/E HS RRR, no murmurs, Chest expiratory wheezing, Abdo SNT A/P COPD exacerbation / acute hypoxic resp failure - albuterol, IV solu-medrol, azithromycin, Left hand cyst following dog bite - does not currently appear infected, no issues with finger extension of abduction, ongoing for last month, recommend follow up with derm/ortho as outpatient Resident Activity Tracking Resident Involvement: Resident Care Provided Care Provided: Adult Hospital Medicine
[2025-01-10] MEDS ORDERED: ALBUTEROL 0.5% NEB SOLN 2.5 MG/0.5 ML VIAL NEB PRN (22:40)
[2025-01-10] MEDS ORDERED: ACETAMINOPHEN 325 MG TAB PO PRN (22:40)
[2025-01-10] MEDS ORDERED: GLUCOSE 10 TAB/TUBE PO PRN (22:40)
[2025-01-10] MEDS ORDERED: ONDANSETRON INJ 2 MG/ML 2 ML VIAL IV PRN (22:40)
[2025-01-10] MEDS ORDERED: CARBOHYDRATES FOR HYPOGLYCEMIA PO PRN (22:40)
[2025-01-10] MEDS ORDERED: DEXTROSE 50% 50 ML SYRINGE IV PRN (22:40)
[2025-01-10] MEDS ORDERED: ALUMINUM/MAGNESIUM SUSP 30 ML UDC PO PRN (22:40)
[2025-01-10] MEDS ORDERED: GLUCOSE 40% GEL 15 GM TUBE PO PRN (22:40)
[2025-01-10] MEDS ORDERED: GLUCAGON FOR INJ 1 MG VIAL SQ PRN (22:40)
[2025-01-10] MEDS ORDERED: POLYETHYLENE (MIRALAX) 17 GM PACK PO PRN (22:40)
[2025-01-10] MEDS: INSULIN ASPART PER UNIT CHARGE SC SCH (23:08)
[2025-01-10] MEDS: MELATONIN 3 MG TAB PO PRN (23:11)
[2025-01-10] MEDS: PRAVASTATIN SOD 40 MG TAB PO SCH (23:11)
[2025-01-10] MEDS: MONTELUKAST SODIUM 10 MG TABLET PO SCH (23:11)
[2025-01-10] MEDS: METOPROLOL TARTRATE 25 MG TAB PO SCH (23:11)
[2025-01-10] MEDS: AZITHROMYCIN 500 MG/255 ML BAG IV SCH (23:15)
[2025-01-11] MEDS ORDERED: BENZONATATE 100 MG CAPSULE PO PRN (00:09)
[2025-01-11] MEDS ORDERED: DEXTROMETHORPHAN POLYMR COMPLX 30 MG/5 ML UDP PO PRN (00:09)
[2025-01-11] MEDS: ALBUTEROL 0.083% NEBU SOLN 3 ML VIAL NEB SCH ×2 (00:12→11:13)
[2025-01-11] MEDS ORDERED: PHARMACY GLYCEMIC MGMT CONSULT PRN (00:37)
[2025-01-11] MEDS: INSULIN ASPART PER UNIT CHARGE SC ONE (04:00)
[2025-01-11] MEDS: LANTUS PER UNIT CHARGE SQ ONE (04:02)
--- NOTE | 2025-01-11 07:09 | Billing Data ---
Date of Service January 10, 2025 Coding Level of Care Code 59726 INT INP/OBS CARE
[2025-01-11 07:52] LABS: BUN Creatinine Ratio 16.7 (10-20); Calcium 9.4 mg/dl (8.6-10.3); Creatinine Clr Calc Pharmacy 38.8 ml/min; Potassium 4.6 mmol/L (3.5-5.1)
[2025-01-11] MEDS: FLUTICASONE/VILANTEROL 200/25MCG 14 PUFFS/INHALER INH SCH (08:52)
[2025-01-11] MEDS: ASPIRIN 81 MG ECTAB PO SCH (08:53)
[2025-01-11] MEDS: CYANOCOBALAMIN (B-12) 500 MCG TABLET PO SCH (08:53)
[2025-01-11] MEDS: CHOLECALCIFEROL 25 MCG (1000 UNITS) TAB PO SCH (08:53)
[2025-01-11] MEDS: amLODIPine BESYLATE 5 MG TAB PO SCH (08:53)
[2025-01-11] MEDS: PANTOprazole 40 MG TAB PO SCH (08:54)
[2025-01-11] MEDS: CETIRIZINE HCL 10 MG TABLET PO SCH (08:54)
[2025-01-11] MEDS: lisinopril 10 MG TAB PO SCH (08:54)
[2025-01-11] MEDS ORDERED: methylPREDNISolone 30 MG in SYRINGE 0 ML IV SCH (09:00)
[2025-01-11] MEDS ORDERED: ALBUTEROL 0.083% NEBU SOLN 3 ML VIAL NEB SCH (09:00)
[2025-01-11] MEDS ORDERED: LANTUS PER UNIT CHARGE SQ SCH (09:00)
[2025-01-11] MEDS: POTASSIUM CHLORIDE CRTAB 20 MEQ TABCR PO SCH (09:02)
[2025-01-11] MEDS: INSULIN HUMAN NPH SC SCH (09:04)
[2025-01-11] MEDS: levoFLOXacin/D5W 750 MG/150 ML BAG IV SCH (09:07)
[2025-01-11] MEDS: methylPREDNISolone 40 MG in SYRINGE 0 ML IV SCH (09:11)
[2025-01-11] MEDS: HEPARIN SOD 5,000 UNIT/0.5 ML VIAL SQ SCH (09:13)
--- NOTE | 2025-01-11 09:40 | Electrocardiogram Report ---
Test Reason : Blood Pressure : */* mmHG Vent. Rate : 66 BPM Atrial Rate : 66 BPM P-R Int : 220 ms QRS Dur : 114 ms QT Int : 408 ms P-R-T Axes : 8 -10 9 degrees QTcB Int : 427 ms Sinus rhythm with 1st degree A-V block Right bundle branch block Minimal voltage criteria for LVH, may be normal variant ( R in aVL ) Inferior infarct (cited on or before 28-Oct-2024) Abnormal ECG When compared with ECG of 28-Oct-2024 09:52, CA interval has increased Vent. rate has decreased by 61 bpm Criteria for Anterior infarct are no longer Present Questionable change in initial forces of Inferior leads Confirmed by Kamila Ruano ([id number]) on 01/11/2025 9:40:24 AM Referred By: REFERRED SELF Confirmed By: Kamila Ruano
[2025-01-11 09:42] LABS: Estimated Average Glucose 143 mg/dl; Hemoglobin A1C 6.6 % (4.5-5.6)
--- NOTE | 2025-01-11 12:41 | Hospitalist Progress Note ---
Date of Service January 11, 2025 Assessment & Plan (1) Acute hypoxic respiratory failure: Plan: Supplemental oxygen per nasal cannula to maintain saturation greater than 90%. Wean off as tolerated (2) COPD exacerbation: Plan: Parenteral steroid therapy for now. Scheduled nebulizer treatments. Treat suspected underlying bronchitis (3) Acute bronchitis: Plan: Suspected cause of current COPD exacerbation. Will obtain sputum culture if sputum is produced. Azithromycin has been switched to levofloxacin, day 1. (4) Stage 3b chronic kidney disease: Plan: Monitor intake and output. Serial labs (5) Hyperlipidemia: Plan: Stable. Continue current medical management (6) Type 2 diabetes mellitus: Plan: Basal insulin therapy twice daily with NPH while on parenteral steroid therapy. ADA diet. Sliding scale coverage as needed Plan Hopeful discharge back to home within the next day or 2 Admission and Anticipated Discharge Date Admission Date: January 10, 2025 Subjective Alert and oriented. No distress. Azithromycin has been switched to Levaquin and sputum culture will be obtained if sputum is produced. Sliding scale coverage has been adjusted and he has been placed on low-dose NPH insulin for diabetic control while on parenteral steroids. He remains on scheduled nebulizer treatments. Review of Systems 2 Review of Systems: Constitutionalno fever or chills ENTno blurred vision, no double vision, no epistaxis, no sore throat. He states his allergies are acting up Respiratorynonproductive cough. Wheezing. No hemoptysis. Dyspnea on exertion Cardiacno palpitations, no chest pain, no syncope Adele nausea, vomiting, diarrhea, melena, hematochezia GUno urinary retention, no urinary incontinence, no dysuria, no hematuria Musculoskeletalno joint pain, no muscle tenderness Skinno bruising, no rashes, no pruritus Neurono isolated weakness, no paresthesia, no weakness Psychno depression, no anxiety Physical Exam 2 Physical Exam: General-alert and oriented x3, no fever, no chills HEENT-head atraumatic and normocephalic, pupils equal and reactive to light, extraocular muscles intact Neck-no lymphadenopathy or thyromegaly, trachea midline Chest-diminished breath sounds bilaterally. Faint bilateral end expiratory wheezes. No midline rhonchi. No inspiratory rales Cardiac-regular rate and rhythm, normal S1 and S2 Abdomen-normal bowel sounds, no hepatosplenomegaly Extremities-no cyanosis, clubbing, or edema Neuro-cranial nerves II through XII intact, motor and sensory function within normal limits, strength symmetrical, no focal deficits Psych-normal affect, normal mood Results & Data Results & Data Vital Signs (Past 12 Hours) Vital Signs Temp Pulse Resp BP Pulse Ox O2 Del Method O2 Flow Rate 01/11/25 11:13 77 16 96 Nasal Cannula 2 01/11/25 08:51 86 139/81 01/11/25 07:53 36.3 C L 82 18 127/73 96 Nasal Cannula 2 01/11/25 07:47 71 18 97 Nasal Cannula 2 01/11/25 07:20 Nasal Cannula 2 Laboratory Results 01/10/25 18:28 01/11/25 07:21 PG Care Time/CCT Total # of Minutes Spent Total Time Spent with Patient: Total time spent is greater than 50% in coordination of care (as documented) at patient's floor/unit and/or counseling patient: Coding Level of Care Code 69010 SUB INP/OBS CARE 3/50MIN Diagnoses Acute hypoxic respiratory failure J96.01 COPD exacerbation J44.1 Acute bronchitis J20.9 Stage 3b chronic kidney disease N18.32 Hyperlipidemia E78.5 Type 2 diabetes mellitus E11.9
[2025-01-12 07:57] LABS: Hematocrit (blood only) 45.2 % (42.0-52.0); Hemoglobin 16.1 g/dl (14.0-18.0); Mean Corpuscular Hemoglobin 34.3 pg (25.0-34.0); Mean Corpuscular Hgb Conc 35.6 g/dL (32.0-36.0); Mean Corpuscular Volume 96.4 fL (80.0-100.0); Mean Platelet Volume 10.5 fL (9.4-12.4); Nucleated RBC # (auto) 0.02 K/uL (0.00-0.12); Nucleated RBC % (auto) 0.1 %; Platelet Count 234 K/uL (130-400); RDW Coefficient of Variation 17.4 % (11.5-14.5); RDW Standard Deviation 52.2 fL (36.4-46.3); Red Blood Count 4.69 M/uL (4.70-6.10); White Blood Count 14.58 K/ul (4.8-10.8)
[2025-01-12 08:01] LABS: Basophils # (auto) 0.02 K/uL (0.00-0.20); Basophils % (auto) 0.1 %; Eosinophils # (auto) 0.01 K/uL (0.00-0.50); Eosinophils % (auto) 0.1 %; Immature Granulocytes # (auto) 0.11 K/uL (0.01-0.20); Immature Granulocytes % (auto) 0.8 %; Lymphocytes # (auto) 1.54 K/uL (1.20-3.40); Lymphocytes % (auto) 10.6 %; Monocytes # (auto) 0.52 K/uL (0.11-0.59); Monocytes % (auto) 3.6 %; Neutrophils # (auto) 12.38 K/uL (1.40-6.50); Neutrophils % (auto) 84.8 %
[2025-01-12 08:09] LABS: Anion Gap 7 (3-11); BUN Creatinine Ratio 19.3 (10-20); Blood Urea Nitrogen 42 mg/dl (6-23); Calcium 9.6 mg/dl (8.6-10.3); Carbon Dioxide 22 mmol/L (21-32); Chloride 103 mmol/L (98-107); Creatinine Clr Calc Pharmacy 29.9 ml/min; Glucose 380 mg/dl (70-99(Fasting)); Sodium 132 mmol/L (136-145)
[2025-01-12] MEDS ORDERED: PHARMACY GLYCEMIC MGMT CONSULT PRN (08:20)
[2025-01-12] MEDS: LANTUS PER UNIT CHARGE SQ ONE (08:50)
[2025-01-12] MEDS ORDERED: LANTUS PER UNIT CHARGE SQ SCH ×2 (09:00)
[2025-01-12] MEDS ORDERED: INSULIN ASPART PER UNIT CHARGE SC SCH (11:30)
--- NOTE | 2025-01-12 12:42 | Hospitalist Progress Note ---
Date of Service January 12, 2025 Assessment & Plan (1) Acute hypoxic respiratory failure: (2) COPD exacerbation: (3) Acute bronchitis: (4) Stage 3b chronic kidney disease: (5) Hyperlipidemia: (6) Type 2 diabetes mellitus: (7) Hyperglycemia: (8) GEOVANNI (acute kidney injury): Plan 79 year old male with PMHx that includes COPD, CKD, HTN, T2DM, CHRISTIAN and HLD who presented for SOB on 01/10. # Acute hypoxic respiratory failure | acute COPD exacerbation | bronchitis Hypoxic on arrival, but has not required supplemental oxygen since 01/10 Patient presenting with increased productive cough and increased supplemental O2 requirement, suspect COPD exacerbation in the setting of viral illness CXR without focal opacities; azithromycin given on admission for anti- inflammatory effects Sputum culture ordered, pending Levofloxacin started on 01/11 IV Solu-Medrol 40 mg TID -> decreased to 30 mg twice daily due to hyperglycemia Continue home inhalers Continue albuterol nebs Q6H Titrate supplemental O2 as needed to maintain SpO2>90% Encourage IS/flutter valve Benzonatate TID PRN #GEOVANNI Mild; BUN 42, creatinine 2.18 (baseline ~1.7) noted on 01/12 Avoid nephrotoxic agents where possible Hold lisinopril for now Gentle fluid resuscitation with NSS at 80 mL/hr x 1 L Trend BMP #T2DM | hyperglycemia Last A1c 6.6% on 01/11/2025 Home anti-hyperglycemic meds held on admission Patient noted to be hyperglycemic at 350 on the morning of 01/12 Suspect largely secondary to high-dose steroids Lantus restarted Recommend Lantus BID + SSI BSG checks ACHS Adjust regimen as needed Pharmacy glycemic consult appreciated in the setting of high-dose steroids and dietary noncompliance #HLD: Continue pravastatin #HTN: Continue amlodipine; hold lisinopril (as above) #CHRISTIAN: CPAP qHS #Allergic Rhinits: Continue home Zyrtec and Singulair Admit: Continued stay on MedSurg Diet: T2DM VTE PPx: Heparin Admission and Anticipated Discharge Date Admission Date: January 10, 2025 Subjective Mr. Uriarte reports his breathing is much improved since arriving the hospital. The nebulizers that he is received in the hospital have helped to clear up his lungs. He does have ongoing productive cough, and does note that he occasionally has "blood-tinged" sputum which he believes may be due to a sinus infection. Patient does not use ambulatory assist devices at baseline. He is concerned about returning home today, as his sugar was elevated this morning, and he reports he does not have insulin at home. No prior history of DVT/PE. ROS: Patient endorses productive cough (yellow sputum production), wheezing, and neuropathic pain in his hands and feet. Patient denies SOB at rest, SILVERIO, fever (resolved prior to arrival), chills, dizziness/lightheadedness with standing, headache, chest pain, chest palpitat ions, pleuritic CP, abdominal pain, or N/V/D. Review of Systems Review of Systems: See HPI above Physical Exam Physical Exam: General: no acute distress; non-toxic appearing; well-nourished; SpO2 96% on RA HEENT: normocephalic, atraumatic; no scleral icterus; PERRLAt; vision and hearing intact Neck: supple; no lymphadenopathy; trachea midline Skin: warm, dry without signs of tenting; no cyanosis; no rashes, bruising, lesions, or erythema noted CV: chest wall NTP; RRR; S1/S2 normal; no murmurs/rubs/gallops; pulses intact and symmetric at radial, DP, and PT Lungs: no acute respiratory distress; symmetrical chest wall expansion; mild wheezing auscultated in the lower lung mcbride bilaterally ABD: Soft, NTP; BS present; no rebound/guarding; no distention MSK: no tics or fasciculations; no edema noted in the LEs b/l, nonerythematous Neuro: A&Ox3; normal mood and affect; fluent speech; no focal deficits; sensation intact and symmetric in the LEs b/l Results & Data Results & Data Vital Signs (Past 12 Hours) Vital Signs Temp Pulse Resp BP Pulse Ox O2 Del Method 01/12/25 10:47 67 16 96 Room Air 01/12/25 08:40 Room Air 01/12/25 08:02 36.4 C L 80 18 135/69 98 Room Air 01/12/25 07:33 77 18 96 Room Air PG Care Time/CCT Total # of Minutes Spent Total Time Spent with Patient: Total time spent is greater than 50% in coordination of care (as documented) at patient's floor/unit and/or counseling patient: Coding [place] [address] SUB INP/OBS CARE 235MIN Patient Type Established History Comprehensive Exam Comprehensive Medical Decision Making Moderate Complexity Diagnoses Acute hypoxic respiratory failure J96.01 COPD exacerbation J44.1 Acute bronchitis J20.9 Stage 3b chronic kidney disease N18.32 Hyperlipidemia E78.5 Type 2 diabetes mellitus E11.9 Hyperglycemia R73.9 GEOVANNI (acute kidney injury) N17.9
--- NOTE | 2025-01-12 13:46 | Pharmacy Report ---
Pharmacy Glycemic Short Note 2 - Date of Service January 12, 2025 - Glycemic Short BSG Results (Last 24 hours): 01/11/25 01/11/25 01/11/25 16:44 21:09 21:11 Glucose POC Glucose 236 H 324 H* 368 H* 01/12/25 01/12/25 01/12/25 06:43 07:54 07:55 Glucose 380 H* POC Glucose 356 H* 330 H* 01/12/25 01/12/25 10:14 11:31 Glucose POC Glucose 299 H 248 H OUTPATIENT ANTIDIABETIC REGIMEN: * Farxiga 10mg po daily * glipizide 5mg po dialy * sitagliptin 50mg po daily HbA1c: 6.6% on 01/11/25 ASSESSMENT: * Ankush is a 79 year old male admitted 01/10 with acute respiratory failure/COPD. He was started on methylprednisolone 60mg iv x 1 then 40mg iv q 8 hours on admission and has been tapering down since (currently receiving methylprednisolone 30mg iv BID). * BSGs were very elevated throughout the day yesterday despite receiving 10 units of NPH insulin and 44 units of bolus insulin. * Fasting BSG shravan to 356mg/dL this morning and pharmacy was consulted for glycemic management at that time. * NPH was discontinued and Lantus 15 units SQ x 1 was ordered for this morning. A Lantus scale (0 or 10 units depending on BSG) was added for HS. * Bolus insulin parameters were tightened to a weight based dosing with a stress between 2 and 3. PLAN FOR INPATIENT GLYCEMIC CONTROL: * Hold outpatient oral diabetes medications * Basal insulin * Lantus 15 units SQ x 1, then Lantus scale at HS (0 or 10 units depending on BSG) * Bolus insulin * NovoLog per scale ACHS or Q6hrs while NPO * Goal Range: Low 110 mg/dL - High 160 mg/dL * Correction Factor: 20 mg/dL/unit * Nutritional / Prandial insulin per carb ratio of 1 unit per 6 grams CHO consumed
[2025-01-12] MEDS: SODIUM CHLORIDE 0.9% 1,000 ML IV SCH (15:42)
[2025-01-12] MEDS: methylPREDNISolone 30 MG in SYRINGE 0 ML IV SCH (17:19)
[2025-01-12] MEDS ORDERED: methylPREDNISolone 1000 MG/16 ML IV SCH (18:00)
[2025-01-12] MEDS: LANTUS PER UNIT CHARGE SC SCH (22:24)
[2025-01-13 06:39] LABS: Basophils # (auto) 0.03 K/uL (0.00-0.20); Basophils % (auto) 0.2 %; Hematocrit (blood only) 46.2 % (42.0-52.0); Hemoglobin 16.6 g/dl (14.0-18.0); Immature Granulocytes # (auto) 0.18 K/uL (0.01-0.20); Immature Granulocytes % (auto) 1.2 %; Mean Corpuscular Hemoglobin 34.7 pg (25.0-34.0); Mean Corpuscular Hgb Conc 35.9 g/dL (32.0-36.0); Mean Corpuscular Volume 96.5 fL (80.0-100.0); Mean Platelet Volume 9.9 fL (9.4-12.4); Monocytes # (auto) 0.71 K/uL (0.11-0.59); Monocytes % (auto) 4.6 %; Neutrophils # (auto) 12.85 K/uL (1.40-6.50); Platelet Count 256 K/uL (130-400); RDW Coefficient of Variation 16.3 % (11.5-14.5); RDW Standard Deviation 53.2 fL (36.4-46.3); Red Blood Count 4.79 M/uL (4.70-6.10); White Blood Count 15.47 K/ul (4.8-10.8)
[2025-01-13 07:01] LABS: BUN Creatinine Ratio 27.3 (10-20); Calcium 9.6 mg/dl (8.6-10.3); Creatinine Clr Calc Pharmacy 35.6 ml/min; Potassium 4.8 mmol/L (3.5-5.1)
[2025-01-13 07:33] VITALS: BP 134/75; TEMP 97.5
--- NOTE | 2025-01-13 08:28 | Discharge Summary ---
"Discharge Summary Date of Service January 13, 2025 Principal Dx & Hospital Course #1 = Principal Diagnosis (1) Acute hypoxic respiratory failure: (2) COPD exacerbation: (3) Acute bronchitis: (4) Stage 3b chronic kidney disease: (5) Hyperlipidemia: (6) Type 2 diabetes mellitus: (7) Hyperglycemia: (8) GEOVANNI (acute kidney injury): Plan 79 year old male with PMHx that includes COPD, CKD, HTN, T2DM, CHRISTIAN and HLD who presented for worsening SOB on 01/10. Day of discharge 01/13: Patient reports that he slept well last night. He still having productive cough (yellow sputum production), but has no other respiratory complaints at this time. No SOB at rest or dyspnea on exertion. Patient reports he got up to use the bathroom around 6 AM, and was coughing, but other than cough, he reports doing well. He reports he feels much better than when he came in, and desire to return home at this time. His granddaughters are currently at his home, so he does have support if needed. ROS: Patient endorses productive cough. Patient denies fever, chills, night sweats, dizziness, lightheadedness when standing, chest pain, chest palpitations, SOB at rest, SILVERIO, pleuritic CP, abdominal pain, N/V/D, or pain/swelling/numbness/tingling in the legs. # Acute hypoxic respiratory failure | acute COPD exacerbation | bronchitis Hypoxic at 88% on arrival (in the setting of COPD), but has not required supplemental oxygen since 01/10 Patient presenting with increased productive cough and increased supplemental O2 requirement, suspect COPD exacerbation in the setting of viral illness CXR without focal opacities; azithromycin given on admission for anti- inflammatory effects Sputum culture ordered, pending Levofloxacin started on 01/11 IV Solu-Medrol 40 mg TID -> decreased to 30 mg twice daily due to hyperglycemia Continue home inhalers Continue albuterol nebs Q6H Titrate supplemental O2 as needed to maintain SpO2>90%; no reported episodes of hypoxia since arrival Encourage IS/flutter valve Benzonatate TID PRN #GEOVANNI Mild; BUN 42, creatinine 2.18 (baseline ~1.7) noted on 01/12 Avoid nephrotoxic agents where possible Hold lisinopril for now Gentle fluid resuscitation with NSS at 80 mL/hr x 1 L Trend BMP #T2DM | hyperglycemia Last A1c 6.6% on 01/11/2025 Home anti-hyperglycemic meds held on admission Patient noted to be hyperglycemic at 350 on the morning of 01/12 Suspect largely secondary to high-dose steroids Lantus restarted Recommend Lantus BID + SSI BSG checks ACHS Adjust regimen as needed Pharmacy glycemic consult appreciated in the setting of high-dose steroids and dietary noncompliance #HLD: Continue pravastatin #HTN: Continue amlodipine; hold lisinopril (as above) #CHRISTIAN: CPAP qHS #Allergic Rhinits: Continue home Zyrtec and Singulair Disposition: Discharge to home on prednisone taper Admission HPI Per Admitting Provider 79 year old male with PMHx that includes COPD, CKD, HTN, T2DM, CHRISTIAN and HLD presenting with worsening shortness of breath. Over the past 2-3 days, patient has had worsening dyspnea in addition to cough, sore throat, and ear pressure. Notes subjective chills yesterday, no fever/chills since then. At baseline, patient is on 2L O2 only at night. Dyspnea improved with supplemental O2 and neb tx. Patient also expresses concern about poor wound healing at site of dog bite on dorsum of right hand one month ago. Patient was seen in the ED shortly after bite, had wound cleaned out and was treated with course of Augmentin. Seen again in ED 12/29 due to pain and swelling at bite location - s/p I&D with minimal output, XR also done without evidence of retained foreign body. Following I&D, completed course of Keflex. Majority of puncture wounds have healed, though one site continues to have cyst-like growth that is very tender to palpation - minimal erythema or surrounding swelling, no further drainage, denies associated fever/chills. ED Course: S/P albuterol neb x2, IV Solumedrol 60mg, and IV Ceftriaxone 2g Admission Exam Per Admitting Provider Constitutional: no acute distress, resting comfortably in bed with NC in place HEENT: NCAT, no conjunctival injection CV: RRR, slightly distant heart sounds, extremities well-perfused, no LE edema Resp: Bilateral expiratory wheezes appreciated in upper lung mcbride, slightly diminished breath sounds throughout GI: nondistended MSK: no gross deformities Skin: dorsum of right hand with small, subcentimeter uniformly round raised lesion, very tender to palpation, minimally erythematous but without surrounding erythema or swelling, no drainage. Neuro: alert, oriented, no focal neurologic deficit appreciated Discharge Exam General: no acute distress; pleasant affect; eating breakfast; non-toxic appearing; well-nourished; SpO2 95% on RA HEENT: normocephalic, atraumatic; no scleral icterus; PERRLA; vision and hearing intact Neck: supple; no lymphadenopathy; trachea midline Skin: warm, dry without signs of tenting; no cyanosis; no rashes, bruising, lesions, or erythema noted CV: chest wall NTP; RRR; S1/S2 normal; no murmurs/rubs/gallops; pulses intact and symmetric at radial, DP, and PT Lungs: no acute respiratory distress; symmetrical chest wall expansion; diminished breath sounds in the lung mcbride bilaterally ABD: Soft, NTP; BS present; no rebound/guarding; no distention MSK: no tics or fasciculations; no edema noted in the LEs b/l, nonerythematous Neuro: A&Ox3; normal mood and affect; fluent speech; no focal deficits; sensation intact and symmetric in the LEs b/l Discharge Plan Discharge Items Patient Disposition: Home - Self-Care Reason For Visit: DYSPNEA Discharge Diagnosis: Acute COPD exacerbation Condition on Discharge: Fair Activity: Resume your previous activity Lifting: Gradually increase as tolerated Exercise/Sports: Gradually increase as tolerated Non-emergency contact: Primary Care Provider and Golf [employer] Trimmer Call non-emergency contact if: you have any medication questions, your symptoms worsen, your pain is concerning for you and you have a fever Follow-up/Referrals: Juanita Carlson PA-C [Primary Care Provider] - Diet: Carb Consistent or DM2 Addtl Attending Provider Instructions: You were seen at [facility] from 01/10 to 01/13 for a COPD exacerbation. While your oxygen saturation was low on arrival at 88%, this is improved over the course of your hospital stay with nebulizer treatments as well as steroids. At time of discharge, your oxygen level is 95% on room air. Given overall improvement in breathing, it is felt that you are safe to return home on a prednisone steroid taper. Please follow taper instructions: Take 40 mg total (4 tablets) for the first 2 days after discharge, then 30 mg total (3 tablets) but that next 2 days after discharge, etc. Additionally, there was some concern regarding your high blood sugar. This is likely due to taking high-dose steroids, and should gradually resolve as the taper decreases. Please continue to monitor your blood sugar closely at home. If you develop any new or worsening symptoms, such as shortness of breath at rest, worsening breathing with walking and exertion, fever, chills, chest pain, or if you have any new concerns please return to the emergency department immediately. It was a pleasure taking care of you. Please reach out with any questions or concerns. Sincerely, Geronimo Warren PA-C Pending Studies at Discharge: No Stand-Alone Forms: My [facility] Medications and DC Order Prescriptions: New prednisone 10 mg tablet See Taper PO DIRECTED Qty: 20 0RF Taper: Taper, Blank 40 mg DAILY for 2 Days 30 mg DAILY for 2 Days 20 mg DAILY for 2 Days 10 mg DAILY for 2 Days Rx Instructions: see taper instructions Continued cetirizine 10 mg tablet 10 mg PO DAILY aspirin 81 mg tablet,delayed release (DR/EC) 81 mg PO DAILY dapagliflozin propanediol [Farxiga] 10 mg tablet 10 mg PO DAILY Qty: 90 3RF fluticasone propion-salmeterol [Advair Diskus] 500-50 mcg/dose blister with device 1 inh inhalation BID Qty: 60 7RF montelukast 10 mg tablet 10 mg PO HS Qty: 30 7RF potassium chloride 20 mEq tablet extended release 20 meq PO DAILY amlodipine 5 mg tablet 5 mg PO DAILY lisinopril 10 mg tablet 10 mg PO DAILY Qty: 90 3RF albuterol sulfate 90 mcg/actuation HFA aerosol inhaler 2 puff inhalation QID PRN (Reason: shortness of breath or wheezing) cholecalciferol (vitamin D3) 2,000 unit Capsule 2,000 unit PO QAM pravastatin 40 mg Tablet 40 mg PO HS cyanocobalamin (vitamin B-12) [Vitamin B-12] 500 mcg Tablet 500 mcg PO Q OTHER DAY glipizide 10 mg Tablet 5 mg PO DAILY acetaminophen 500 mg Tablet 500 mg PO Q6H PRN (Reason: Pain) metoprolol tartrate 50 mg Tablet 25 mg PO BID fluticasone propionate 50 mcg/actuation spray,suspension 2 spray INTRANASAL BID sitagliptin 50 mg Tablet 50 mg PO DAILY pantoprazole 40 mg Tablet,Delayed Release (Dr/Ec) 40 mg PO QAM Qty: 30 0RF Psyllium Or Guar Gum Fiber Sup [Metamucil Or Nutrisource Fiber Supplement] 4 g PO BID Qty: 0 0RF Discontinued oxycodone 5 mg Tablet 5 mg PO Q6H PRN (Reason: pain) Qty: 20 0RF oxycodone 5 mg tablet 5 mg PO Q6H PRN (Reason: pain) Qty: 20 0RF Discharge Orders: Discharge Order (Routine); Ordered 01/13/25 Ordered By: Geronimo Glasgow/Other Patient Handouts: Managing Type 2 Diabetes Admission Data Admit Date/Time: 01/10/25 21:07 Attending Provider: Dereck Stevens Admit Provider: Garret Sierra Primary Care Provider: Juanita Carlson Other Providers: Nick Gomez; [facility] Hospital Stay Data Consultations 01/10/25 19:58 ED Decision to Admit Stat Discharge Instructions Given to Patient (Per Discharging Provider) You were seen at [facility] from 01/10 to 01/13 for a COPD exacerbation. While your oxygen saturation was low on arrival at 88%, this is improved over the course of your hospital stay with nebulizer treatments as well as steroids. At time of discharge, your oxygen level is 95% on room air. Given overall improvement in breathing, it is felt that you are safe to return home on a prednisone steroid taper. Please follow taper instructions: Take 40 mg total (4 tablets) for the first 2 days after discharge, then 30 mg total (3 tablets) but that next 2 days after discharge, etc. Additionally, there was some concern regarding your high blood sugar. This is likely due to taking high-dose steroids, and should gradually resolve as the taper decreases. Please continue to monitor your blood sugar closely at home. If you develop any new or worsening symptoms, such as shortness of breath at rest, worsening breathing with walking and exertion, fever, chills, chest pain, or if you have any new concerns please return to the emergency department immediately. It was a pleasure taking care of you. Please reach out with any questions or concerns. Sincerely, Geronimo Warren PAQuianaC Total Time Total Time Spent Total Time Spent (In Minutes): 30 Coding [place] [address] INP/OBS DISCH >30 MIN Patient Type Established History Comprehensive Exam Comprehensive Medical Decision Making Moderate Complexity Diagnoses Acute hypoxic respiratory failure J96.01 COPD exacerbation J44.1 Acute bronchitis J20.9 Stage 3b chronic kidney disease N18.32 Hyperlipidemia E78.5 Type 2 diabetes mellitus E11.9 Hyperglycemia R73.9 GEOVANNI (acute kidney injury) N17.9"
[2025-01-13] MEDS: LANTUS PER UNIT CHARGE SC ONE (08:56)
[2025-01-13] MEDS: levoFLOXacin 750 MG TAB PO ONE (10:20)
[2025-01-13 11:42] VITALS: PULSE 77; RESP 15; O2SAT 96
== END 2025-01-13 14:10 | disposition home or self-care (01) | DRG 189 ==
LOC: SUATTDRO → ED 17:41 → SUATTDRO 21:07 → 3W 21:07

== ENCOUNTER 2025-02-25 23:41 | Inpatient (IN) ==
[2025-02-26 00:44] LABS: Basophils # (auto) 0.11 K/uL (0.00-0.20); Basophils % (auto) 0.7 %; Eosinophils # (auto) 0.42 K/uL (0.00-0.50); Eosinophils % (auto) 2.8 %; Hematocrit (blood only) 46.5 % (42.0-52.0); Hemoglobin 15.9 g/dl (14.0-18.0); Immature Granulocytes # (auto) 0.31 K/uL (0.01-0.20); Immature Granulocytes % (auto) 2.1 %; Lymphocytes # (auto) 4.34 K/uL (1.20-3.40); Lymphocytes % (auto) 28.8 %; Mean Corpuscular Hemoglobin 31.7 pg (25.0-34.0); Mean Corpuscular Hgb Conc 34.2 g/dL (32.0-36.0); Mean Corpuscular Volume 92.6 fL (80.0-100.0); Mean Platelet Volume 9.4 fL (9.4-12.4); Monocytes # (auto) 1.06 K/uL (0.11-0.59); Neutrophils # (auto) 8.82 K/uL (1.40-6.50); Neutrophils % (auto) 58.6 %; Platelet Count 266 K/uL (130-400); RDW Coefficient of Variation 15.9 % (11.5-14.5); Red Blood Count 5.02 M/uL (4.70-6.10); White Blood Count 15.06 K/ul (4.8-10.8)
[2025-02-26 01:03] LABS: Albumin Globulin Ratio 1.1 (0.9-2); Albumin Level 3.5 gm/dl (3.4-5.0); BUN Creatinine Ratio 13.6 (10-20); Bilirubin,Total 0.5 mg/dl (0.2-1.0); Calcium 9.2 mg/dl (8.6-10.3); Creatinine Clr Calc Pharmacy 38.6 ml/min; Globulin 3.3 gm/dl (2.5-4.0); Magnesium 2.1 mg/dl (1.7-2.4); Potassium 4.1 mmol/L (3.5-5.1); Total Protein 6.8 gm/dl (6.0-8.3)
[2025-02-26 01:09] LABS: Troponin I High Sensitivity 9.8 pg/ml (0-20)
--- NOTE | 2025-02-26 01:39 | XRay Report ---
EXAM: XR chest 1V portable CLINICAL HISTORY: Dyspnea TECHNIQUE: An X-ray image of the chest is obtained in AP projection. COMPARISON: 02/06/2025 FINDINGS: Pulmonary Parenchyma: Unchanged left lower zone opacity, which is likely exaggerated due to the summation of soft tissue shadows and due to projectional factors. No definite pulmonary consolidation or collapse. No significant pleural effusion or thickening. Heart and Mediastinum: Apparent cardiomegaly, which could be exaggerated due to AP projection. Unchanged. No mediastinal masses. Bony Thorax: Mild degenerative changes of the visualized skeleton. Soft Tissues: Soft tissues overlying the chest wall are unremarkable. IMPRESSION: 1. No definite pulmonary consolidation or collapse. 2. Left lower zone opacity, which is likely exaggerated due to the summation of soft tissue shadows; however, clinical correlation is advised. 3. No significant interval change. Electronically signed by Remberto Marcial 02-26-2025 01:38 AM
[2025-02-26 01:56] LABS: Prothrombin Time 10.6 Seconds (9.0-12.0)
--- NOTE | 2025-02-26 03:04 | History & Physical Report ---
Date of Service February 26, 2025 Assessment & Plan (1) Acute diastolic (congestive) heart failure: (2) Hypoxia: (3) Hypertension: (4) Lower extremity edema: Plan Patient is a 79-year-old male with past medical history of diastolic heart failure, COPD, stage III CKD, type II DM, CHRISTIAN on 2L at bedtime, HTN, lower extremity edema, chronic leukocytosis. Patient presented due to shortness of breath and was found to be 86% on room air, currently on 4L NC at time of admission. #Hypoxia/acute on chronic diastolic CHF exacerbation 86% on room air, currently 4L NC at time of admission. BNP 43 (typically negative with exacerbations given obesity), troponin 9.8. Most recent echo 02/01/2025 revealed EF 60 to 65%, mild LVH, normal systolic function. Mag stable. Suspect acute CHF and over exerted with increase in activity - does use oxygen prn on exertion at home. - will given 20 IV lasix on admission followed by 20 IV lasix AM 02/26 - received 40 IV x 2 days, 20 Iv x 1 during recent admission resulting in renal impairment - closely trend bmp - with recurrent admissions and persistent LE edema consider increased home dose of 20 mg PO daily (recently increased from QOD) - 40 mg Po daily ordered 02/27 - increasing metoprolol as below with HTN Continue potassium supplement - recently decreased from twice daily to daily given fluctuating renal function Strict I's and O's Daily weights - incentive spirometry - EKG prn for chest pain - repeat trop with AM labs - question of possible PE workup given hypoxic and pleuritic chest pain with increase in sedentary lifestyle. Renal function poor so not adequate candidate for CTA. Low concern for DVT given edema has been stable for several weeks and recent Doppler negative. If clinically fails to improve with diuresis consider VQ scan. #HTNcontinue amlodipine and metoprolol. Holding lisinopril as above. - pressures have been on high side - will increase metoprolol from 25mg BID to 50 mg BID #Bilateral lower extremity edemaSuspected venous insufficiency versus lymphedema. Recent venous study negative for any evidence of reflux, posterior tibial and peroneal veins were not well-visualized. Promote leg elevation Teds ordered - Diuresing #Chronic leukocytosisWBC 15.06 with left shift at time of admission, appears to be patient's baseline. Peripheral smear 2023 showed no significant abnormalit ies. No infectious origin found. Trend CBC #Stage III CKDcreatinine fluctuating over the past month, BL 1.5-1.8 however as high as 2.2 during recent admission. Creatinine 1.69 at time of admission, stable. Electrolytes stable. Continue to hold lisinopril Avoid nephrotoxic agents Trend BMP #COPDno acute exacerbation (most recent treated 01/26/2025). 2 step oxygen test during recent admission, patient does not require home oxygen. Continue home inhalers #B4CFjvik recent A1c 6.6% Hold Farxiga, glipizide, sitagliptin Sliding scale insulin ordered #CHRISTIAN Uses 2L nasal cannula at bedtime at home, continue. #GERD - continue PPI VTE ppx: Heparin 5000u Q12h Dispo: med/tele Admission and Anticipated Discharge Date Admission Date: 02/26/25 History of Present Illness Chief Complaint: dyspnea Primary Care Provider: Juanita Carlson PA-C Patient is a 79-year-old male with past medical history of diastolic heart failure, COPD, stage III CKD, type II DM, CHRISTIAN on 2L at bedtime, HTN, lower extremity edema, chronic leukocytosis. Patient presented due to shortness of breath and was found to be 86% on room air, currently on 4L NC at time of admission. Patient with recurrent admissions in the past for acute CHF; most recent 01/30- 02.03 in which IV diuresis caused GEOVANNI. His Lisinopril has been held since this admission and he had a recent visit with nephrology they recommended holding for an additional month based off laboratories as creatinine has been fluctuating. Patient saw CHF clinic 02/16 which recommended Lasix 20 mg daily and further workup for possible venous insufficiency. Patient seen at bedside. He stated that he has been sedentary recently due to his feet hurting and he has an appointment arranged with podiatry. Today he was working outside which is much more labored than he has been used to when he developed shortness of breath and right sided achy chest pain as well as a fluttering sensation. This went away with rest. He has had no episodes since and has felt no pain similar to this in the past. He was unsure if he pulled something, work too hard, or if there was something else going on so he came into the ED. Patient stated he also has chest pain with deep inspiration today. He has had bilateral lower extremity edema that he stated has been worse for approximately 2 weeks, stable since recent Doppler study. he tries to follow a low-sodium diet and has been compliant with his home Lasix. He stated his weight has been consistently 212lbs. he denies any dizziness, lightheadedness, current chest pain, cough, congestion, nausea, vomiting, diarrhea. He denies history of VTE. He stated he has home oxygen 2L at bedtime for CHRISTIAN and also uses 2 L as needed with exertion. He took all of his medications and wishes to maintain his DNR/DNI status. Allergies Allergy/AdvReac Type Severity Reaction Status Date / Time Influenza Virus Vaccines Allergy Severe Shortness Verified 02/16/25 13:36 of breath ipratropium [From Combivent] Allergy Unknown On med Verified 02/16/25 13:36 list from [facility] atorvastatin AdvReac Intermediate Cramping Verified 02/16/25 13:36 of the Muscles simvastatin AdvReac Intermediate Cramping Verified 02/16/25 13:36 of the Muscles Home Medications Medication Instructions Recorded Confirmed Type cholecalciferol (vitamin D3) 50 2,000 unit PO QAM 09/20/18 02/26/25 History mcg (2,000 unit) capsule pravastatin 40 mg tablet 40 mg PO HS 09/20/18 02/26/25 History aspirin 81 mg tablet,delayed 81 mg PO DAILY 06/20/21 02/26/25 History release cetirizine 10 mg tablet 10 mg PO DAILY 06/20/21 02/26/25 History cyanocobalamin (vitamin B-12) 500 500 mcg PO DAILY 03/28/22 02/26/25 History mcg tablet (Vitamin B-12) acetaminophen 500 mg tablet 500 mg PO Q6H PRN Pain 09/17/24 02/26/25 History metoprolol tartrate 50 mg tablet 25 mg PO BID 09/17/24 02/26/25 History sitagliptin 50 mg tablet 50 mg PO DAILY 09/17/24 02/26/25 History dapagliflozin propanediol 10 mg 10 mg PO DAILY #90 tabs 10/01/24 02/26/25 Rx tablet (Farxiga) pantoprazole 40 mg tablet,delayed 40 mg PO QAM #30 tabs 10/12/24 02/26/25 Rx release fluticasone 500 mcg-salmeterol 50 1 inh inhalation BID #60 ea 11/12/24 02/26/25 Rx mcg/dose blistr powdr for inhalation (Advair Diskus) montelukast 10 mg tablet 10 mg PO HS #30 tabs 11/12/24 02/26/25 Rx lisinopril 10 mg tablet 10 mg PO DAILY #90 tabs 12/01/24 02/26/25 Rx amlodipine 10 mg tablet 5 mg PO DAILY 01/18/25 02/26/25 History benzonatate 100 mg capsule 100 mg PO TID PRN Cough 01/18/25 02/26/25 History glipizide 5 mg tablet 2.5 mg PO QAM 01/18/25 02/26/25 History tiotropium bromide 2.5 2 puff inhalation DAILY 01/18/25 02/26/25 History mcg/actuation mist for inhalation potassium chloride 20 mEq 20 meq PO DAILY #0 tabs 02/03/25 02/26/25 Rx tablet,extended release furosemide 20 mg tablet (Lasix) 20 mg PO DAILY #30 tabs 02/12/25 02/26/25 Rx Past Med/Surg History Problem List (Updated 02/26/25 @ 06:13 by Will Larios MD) Hypoxia (Acute) Bilateral edema of lower extremity (Acute) Chest pain (Acute) Hypertension (HFpEF) heart failure with preserved ejection fraction Acute diastolic (congestive) heart failure COPD (chronic obstructive pulmonary disease) (Acute) Bilateral edema of lower extremity (Acute) Leukocytosis Elevated INR Lower extremity edema CKD (chronic kidney disease) (Acute) SILVERIO (dyspnea on exertion) (Acute) COPD exacerbation (Acute) Anemia Stage 3b chronic kidney disease Lumbar back pain with radiculopathy affecting left lower extremity Intractable low back pain (Acute) Viral gastroenteritis Hypomagnesemia (Acute) Acute kidney injury superimposed on chronic kidney disease (Acute) Sepsis (Acute) Acute dyspnea (Acute) Contusion of left chest wall (Acute) Cough (Acute) Abrasion of knee, left (Acute) Chest wall contusion (Acute) Fall (Acute) Left-sided chest wall pain (Acute) Ex-smoker Alveolar emphysema of lung Peripheral eosinophilia Asthma-COPD overlap syndrome Hypoxia (Acute) Proteinuria Vitamin D deficiency Coronavirus infection (Acute) Lab test negative for COVID-19 virus (Acute) Cough (Acute) Hypoxemia (Acute) Bronchitis (Acute) Acute exacerbation of chronic obstructive pulmonary disease (COPD) 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 (Acute) COVID Hyperlipidemia Substernal precordial chest pain (Acute) SOB (shortness of breath) (Acute) Mitral regurgitation Calculus of proximal left ureter (Acute) Hydronephrosis due to obstruction of ureter (Acute) Vision loss of left eye (Chronic) Medical History GEOVANNI (acute kidney injury) Acute bronchitis Flu-like symptoms SOB (shortness of breath) Hypoxia Hyperglycemia Acute hypoxic respiratory failure Type 2 diabetes mellitus Hypertension CHRISTIAN (obstructive sleep apnea) COPD (chronic obstructive pulmonary disease) CKD (chronic kidney disease) stage 3, GFR 30-59 ml/min Diabetes mellitus, type II Hypoxic Pneumonia due to COVID-19 virus Chest pain Acute kidney injury superimposed on CKD Cervical pain (neck) Pulmonary nodules Dyspnea on exertion Orthopnea Osteoarthritis Nephrolithiasis Surgical History Hx of cystoscopy STENT INSERTION AND NOW HAS CHRONIC PAIN IN LEFT LEG SINCE SURGERY H/O eye surgery RETINA REPAIR IN BOTH EYES Family History Father Congestive heart failure Mother Cancer Social History Smoking Status: Never smoker Tobacco Type: Cigarettes Second Hand Exposure: No; Do You Dip or Chew Tobacco: No; Hx Alcohol Use: No Hx Substance Use: No Preferred Language: Gambian Communication Ability: Effective Visual Impairment: Partially Limited 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 Beliefs That Will Affect Care: None marital status: / Current Living Situation: Family Current Living Situation Comment: lives with granddabelle, her and their 4 kids and 2 dogs current occupational status: retired How many Children do You have: 3 Other Information That Helps Us Care for You: No Feels Safe at Home: Yes Safety Concerns: Feels Safe At This Time Diet: diabetic during the past year weight has: remained stable Assistive Devices: Cane, Oxygen - at Night, Walker and Wheelchair Review of Systems Review of Systems: see HPI Physical Exam Physical Exam: The patient is awake, alert and oriented 3, well developed and well nourished, normocephalic and atraumatic, in no acute distress. Non-toxic appearing. HEENT- EOMI, mucous membranes moist. Hearing grossly intact. Heart-normal S1 and S2. No murmurs, rubs or gallops. Lungs-clear bilaterally, no respiratory distress, no accessory muscle use. 4L NC. Abdomen-normal bowel sounds and soft. No ascites noted. Non-tender. Extremities- no clubbing, cyanosis. +2 pitting edema BL LE. No calf tenderness. Rheumatologic-normal range of motion. Psychiatric-normal affect. Results & Data Results & Data Vital Signs (Past 12 Hours) Vital Signs Temp Pulse Pulse Resp BP BP Pulse Ox 02/26/25 01:42 69 20 161/88 H 95 02/26/25 01:42 67 02/25/25 23:58 20 91 02/25/25 23:57 66 22 86 L 02/25/25 23:52 87 L 02/25/25 23:44 36.6 C 77 20 163/90 H 93 O2 Del Method O2 Flow Rate 02/26/25 01:42 Oxymask 4 02/26/25 01:42 02/25/25 23:58 Nasal Cannula 4 02/25/25 23:57 Room Air 02/25/25 23:52 Nasal Cannula 0 02/25/25 23:44 Room Air Laboratory Results Reviewed CBC, CMP, PT/INR, troponin, BNP, UA Diagnostic Findings reviewed CXR ECG Additional Comments: NSR, right bundle branch block (known history of) QTc 448 Rate 75 Code Status & VTE Plan Code Status dnr/dni VTE Prophylaxis Plan VTE Prophylaxis will be ordered: Yes Supervising Physician Co-Signing Physician Notes PA Supervision Note: I personally saw and examined the patient. I verified all philippe points and agree with WENDY Reza with the following exceptions and/or additions: S-patient here with increasing shortness of breath and acute onset of right sided chest pain after overexerting himself. Hypoxemic and requiring 4 L nasal cannula in the ED. History and ROS otherwise reviewed as above O- Vitals reviewed Gen: AAOx3, NAD HEENT: Anicteric sclerae, EOMI CV: RRR no mgr nl S1S2 Pulm: CTAB no wcr Ext: 1-2+ pitting edema bilateral legs [id number]-old male here with acute on chronic HFpEF and acute on chronic respiratory failure with hypoxemia - Give IV diuresis now and then increase daily Lasix dose to 40 mg daily Rest of plan outlined as above PG Care Time/CCT Total # of Minutes Spent Total Time Spent with Patient: Total time spent is greater than 50% in coordination of care (as documented) at patient's floor/unit and/or counseling patient: Coding Level of Care Code 27444 INT INP/OBS CARE MIN Diagnoses Acute diastolic (congestive) heart failure I50.31 Hypoxia R09.02 Hypertension I10 Hypertension type: unspecified Lower extremity edema R60.0 (3) Hypertension Hypertension type: unspecified Qualified Code(s): I10 - Essential (primary) hypertension
[2025-02-26 03:14] LABS: Appearance Urine Clear (Clear); Bacteria Urine Automated None Seen (None Seen); Bilirubin Urine Negative (Negative); Blood Urine Negative (Negative); Cast Urine Automated 0-2 /lpf (0-2); Color Urine Yellow; Epithelial Cell Urine Auto 0-2 /hpf (0-2); Glucose Urine UA 3+ (Negative); Ketones Urine Negative (Negative); Leukocyte Esterase Urine Negative (Negative); Nitrite Urine Negative (Negative); Protein Urine 1+ (Negative); RBC Urine Automated 0-2 /hpf (0-2); Urobilinogen Urine Negative (Negative); WBC Urine Automated 0-5 /hpf (0-5); pH Urine 5.5 (4.5-7.5)
[2025-02-26] MEDS: FUROSEMIDE 40 MG/4 ML VIAL IV ONE (03:58)
[2025-02-26] MEDS: FUROSEMIDE INJ 20 MG/2 ML VIAL IV ONE ×2 (04:32→09:30)
[2025-02-26] MEDS ORDERED: GLUCAGON FOR INJ 1 MG VIAL SQ PRN ×2 (05:09→08:04)
[2025-02-26] MEDS ORDERED: DOCUSATE SODIUM 100 MG CAP PO PRN (05:09)
[2025-02-26] MEDS ORDERED: ACETAMINOPHEN 325 MG TAB PO PRN (05:09)
[2025-02-26] MEDS ORDERED: BENZONATATE 100 MG CAPSULE PO PRN (05:09)
[2025-02-26] MEDS ORDERED: GLUCOSE 10 TAB/TUBE PO PRN ×2 (05:09→08:04)
[2025-02-26] MEDS ORDERED: CARBOHYDRATES FOR HYPOGLYCEMIA PO PRN ×2 (05:09→08:04)
[2025-02-26] MEDS ORDERED: DEXTROSE 50% 50 ML SYRINGE IV PRN ×2 (05:09→08:04)
[2025-02-26] MEDS ORDERED: MELATONIN 3 MG TAB PO PRN (05:09)
[2025-02-26] MEDS ORDERED: ONDANSETRON INJ 2 MG/ML 2 ML VIAL IV PRN (05:09)
[2025-02-26] MEDS ORDERED: GLUCOSE 40% GEL 15 GM TUBE PO PRN ×2 (05:09→08:04)
--- NOTE | 2025-02-26 06:13 | Emergency Department Note ---
Impression & Plan Chest pain, Bilateral edema of lower extremity, Hypoxia ED Provider Note NAME: AMI ALONSO AGE: 79 SEX: Male INFORMANT: Patient ED PROVIDER(S): Will Larios MD CHIEF COMPLAINT: Chest pain PLAN: Disposition: Admitted Outpatient prescription management: none Referral: None MEDICAL DECISION MAKING: Patient presented because of chest pain. Workup was initiated. His ECG showed a normal sinus rhythm. He was requiring supplemental oxygen that he has some mild hypoxia. Chest x-ray revealed cardiomegaly. No pneumothorax or infiltrate. His CBC showed a slight leukocytosis which has been there previously. Patient had stable creatinine that was mildly elevated. BNP and troponin were unremarkable. Given the patient's symptoms I discussed further evaluation and management in the hospital. Consultation was made with Dr. Myles of the [facility] service. Case discussed and diagnostics were reviewed. Patient was evaluated in the ER for further management. Care/management discussed with: medical affairs manager Level of care consideration(s): After review of the information above and other included data, I feel the patient requires escalation of care to admission. Triage Nursing notes: reviewed and agree them. Vital Signs: reviewed and remarkable for hypoxia Additional History obtained from: none Chronic Medical/Social Conditions affecting care: Heart failure, hyperlipidemia, hypertension Prior/ Outside/ External records reviewed: none Differential Diagnosis: Reactive airway disease, pneumonia, pneumothorax, COPD, CHF, infections, cardiac ischemia, pulmonary embolism, musculoskeletal, gastrointestinal, as well as other pathologies. Diagnostics, independently interpreted by me: ECG: Twelve-lead ECG reveals a normal sinus rhythm at 75 bpm. Right bundle branch block. No ST elevation or depression. Cardiac Monitoring: Cardiac monitoring ordered by me: The patient was placed on continuous cardiac monitoring and observed. It revealed a normal sinus rhythm at 80 beats per minute without ectopy or evidence of dysrhythmia. Medical decision rules: none Imaging studies: Chest x-ray. Findings: A chest x-ray was performed and revealed no pneumothorax, effusion, infiltrate, pulmonary edema, free air under the diaphragm, or wide mediastinum. Cardiomegaly present. HPI: 79 year old Male arrives for evaluation of chest pain. This started this evening and is right-sided and central. The patient also notes the following associated symptoms, shortness of breath. Patient also notes he has been dealing with leg swelling for several weeks. He did have outpatient ultrasounds performed. Denies any significant weight change. The patient has taken no new medication for relieving factors. Current pain is rated as 0/10. Pt denies LOC, headache, fevers, chills, diaphoresis, visual changes, neck pain,nausea, vomiting, abdominal pain, back pain, melena, hematochezia, urinary symptoms, numbness, weakness, rash, or other complaints.. PAST MEDICAL HISTORY: See Below, heart failure, COPD, CKD PAST SURGICAL HISTORY: See Below, SOCIAL HISTORY: See Below, retired HOME MEDICATIONS: See Below ALLERGIES: See Below VITALS: See Below PHYSICAL EXAMINATION: GENERAL: Awake, alert, riv-jxsuzsjxump-noitdbual, in no distress HENT: Normocephalic, atraumatic. Oropharynx unremarkable. EYES: Normal conjunctiva. Sclera non-icteric. NECK: Inspection normal. Non-tender. Supple. No nuchal rigidity. FROM. No masses. RESPIRATORY: Clear to auscultation. No wheezes. No rales. Normal respiratory effort. CARDIAC: Normal rate. Normal rhythm. No murmurs. No rubs. Extremities warm and well perfused. Pulses equal. No JVD. GI: Soft, non-distended. No tenderness to palpation. No rebound or guarding. No masses. RECTAL: Deferred. MUSCULOSKELETAL: Atraumatic. Chest examination reveals no tenderness. The back is symmetrical on inspection without obvious abnormality. There is no CVA tenderness to palpation. No joint edema. LOWER EXTREMITIES: Calves are equal size bilaterally and non-tender. 3+ pitting edema. No discoloration. NEURO: Normal sensorium. No sensory or motor deficits noted. SKIN: No rash or jaundice noted. PROCEDURES: none CRITICAL CARE: none OBSERVATION NOTE: none Past Med/Surg History Problem List (Updated 02/26/25 @ 06:13 by Will Larios MD) Hypoxia (Acute) Bilateral edema of lower extremity (Acute) Chest pain (Acute) Hypertension (HFpEF) heart failure with preserved ejection fraction Acute diastolic (congestive) heart failure COPD (chronic obstructive pulmonary disease) (Acute) Bilateral edema of lower extremity (Acute) Leukocytosis Elevated INR Lower extremity edema CKD (chronic kidney disease) (Acute) SILVERIO (dyspnea on exertion) (Acute) COPD exacerbation (Acute) Anemia Stage 3b chronic kidney disease Lumbar back pain with radiculopathy affecting left lower extremity Intractable low back pain (Acute) Viral gastroenteritis Hypomagnesemia (Acute) Acute kidney injury superimposed on chronic kidney disease (Acute) Sepsis (Acute) Acute dyspnea (Acute) Contusion of left chest wall (Acute) Cough (Acute) Abrasion of knee, left (Acute) Chest wall contusion (Acute) Fall (Acute) Left-sided chest wall pain (Acute) Ex-smoker Alveolar emphysema of lung Peripheral eosinophilia Asthma-COPD overlap syndrome Hypoxia (Acute) Proteinuria Vitamin D deficiency Coronavirus infection (Acute) Lab test negative for COVID-19 virus (Acute) Cough (Acute) Hypoxemia (Acute) Bronchitis (Acute) Acute exacerbation of chronic obstructive pulmonary disease (COPD) 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 (Acute) COVID Hyperlipidemia Substernal precordial chest pain (Acute) SOB (shortness of breath) (Acute) Mitral regurgitation Calculus of proximal left ureter (Acute) Hydronephrosis due to obstruction of ureter (Acute) Vision loss of left eye (Chronic) Medical History GEOVANNI (acute kidney injury) Acute bronchitis Flu-like symptoms SOB (shortness of breath) Hypoxia Hyperglycemia Acute hypoxic respiratory failure Type 2 diabetes mellitus Hypertension CHRISTIAN (obstructive sleep apnea) COPD (chronic obstructive pulmonary disease) CKD (chronic kidney disease) stage 3, GFR 30-59 ml/min Diabetes mellitus, type II Hypoxic Pneumonia due to COVID-19 virus Chest pain Acute kidney injury superimposed on CKD Cervical pain (neck) Pulmonary nodules Dyspnea on exertion Orthopnea Osteoarthritis Nephrolithiasis Surgical History Hx of cystoscopy STENT INSERTION AND NOW HAS CHRONIC PAIN IN LEFT LEG SINCE SURGERY H/O eye surgery RETINA REPAIR IN BOTH EYES Family History Father Congestive heart failure Mother Cancer Social History Smoking Status: Never smoker Tobacco Type: Cigarettes Second Hand Exposure: No; Do You Dip or Chew Tobacco: No; Hx Alcohol Use: No Hx Substance Use: No Preferred Language: Bulgarian Communication Ability: Effective Visual Impairment: Partially Limited Pit Furnace Melter Required: No Beliefs That Will Affect Care: None marital status: / Current Living Situation: Family Current Living Situation Comment: lives with larissa, her and their 4 kids and 2 dogs current occupational status: retired How many Children do You have: 3 Other Information That Helps Us Care for You: No Feels Safe at Home: Yes Safety Concerns: Feels Safe At This Time Diet: diabetic during the past year weight has: remained stable Assistive Devices: Cane, Oxygen - at Night, Walker and Wheelchair Allergies Allergies Allergy/AdvReac Type Severity Reaction Status Date / Time Influenza Virus Vaccines Allergy Severe Shortness Verified 02/16/25 13:36 of breath ipratropium [From Combivent] Allergy Unknown On med Verified 02/16/25 13:36 list from [facility] atorvastatin AdvReac Intermediate Cramping Verified 02/16/25 13:36 of the Muscles simvastatin AdvReac Intermediate Cramping Verified 02/16/25 13:36 of the Muscles Home Meds Home Medications Medication Instructions Recorded Confirmed cholecalciferol (vitamin D3) 50 2,000 unit PO QAM 09/20/18 02/26/25 mcg (2,000 unit) capsule pravastatin 40 mg tablet 40 mg PO HS 09/20/18 02/26/25 aspirin 81 mg tablet,delayed 81 mg PO DAILY 06/20/21 02/26/25 release cetirizine 10 mg tablet 10 mg PO DAILY 06/20/21 02/26/25 cyanocobalamin (vitamin B-12) 500 500 mcg PO DAILY 03/28/22 02/26/25 mcg tablet (Vitamin B-12) acetaminophen 500 mg tablet 500 mg PO Q6H PRN Pain 09/17/24 02/26/25 metoprolol tartrate 50 mg tablet 25 mg PO BID 09/17/24 02/26/25 sitagliptin 50 mg tablet 50 mg PO DAILY 09/17/24 02/26/25 amlodipine 10 mg tablet 5 mg PO DAILY 01/18/25 02/26/25 benzonatate 100 mg capsule 100 mg PO TID PRN Cough 01/18/25 02/26/25 glipizide 5 mg tablet 2.5 mg PO QAM 01/18/25 02/26/25 tiotropium bromide 2.5 2 puff inhalation DAILY 01/18/25 02/26/25 mcg/actuation mist for inhalation Previous Rx's Medication Instructions Recorded dapagliflozin propanediol 10 mg 10 mg PO DAILY #90 tabs 10/01/24 tablet (Farxiga) pantoprazole 40 mg tablet,delayed 40 mg PO QAM #30 tabs 10/12/24 release fluticasone 500 mcg-salmeterol 50 1 inh inhalation BID #60 ea 11/12/24 mcg/dose blistr powdr for inhalation (Advair Diskus) montelukast 10 mg tablet 10 mg PO HS #30 tabs 11/12/24 lisinopril 10 mg tablet 10 mg PO DAILY #90 tabs 12/01/24 potassium chloride 20 mEq 20 meq PO DAILY #0 tabs 02/03/25 tablet,extended release furosemide 20 mg tablet (Lasix) 20 mg PO DAILY #30 tabs 02/12/25 Results & Data (ED) Vital Signs Vital Signs - 24 hr 02/25/25 23:44 02/25/25 23:52 02/25/25 23:57 Temperature 36.6 C Temperature Source Temporal Artery Scan Pulse Rate 77 66 Pulse Rate [Apical] Pulse Rhythm [Apical] Respiratory Rate 20 22 Respiratory Effort / Characteristics Non-Labored Spontaneous Respiratory Depth Normal Blood Pressure 163/90 H Blood Pressure [Right Arm] Blood Pressure Mean 114 Blood Pressure Mean [Right Arm] Blood Pressure Position [Right Arm] Pulse Oximetry 93 87 L 86 L Oxygen Delivery Method Room Air Nasal Cannula Room Air Oxygen Flow Rate 0 Sepsis Recent Fever Within 48 Hours No Sepsis New/Unexplained Change in Mental Status No Sepsis Action Taken by Nursing No Action Required Oxygen Flow Rate - Titration 4 Pulse Oximetry Post Tiitration 90 02/25/25 23:58 02/26/25 01:42 02/26/25 01:42 Temperature Temperature Source Pulse Rate 67 Pulse Rate [Apical] 69 Pulse Rhythm [Apical] Respiratory Rate 20 20 Respiratory Effort / Characteristics Respiratory Depth Blood Pressure Blood Pressure [Right Arm] 161/88 H Blood Pressure Mean Blood Pressure Mean [Right Arm] 112 Blood Pressure Position [Right Arm] Pulse Oximetry 91 95 Oxygen Delivery Method Nasal Cannula Oxymask Oxygen Flow Rate 4 4 Sepsis Recent Fever Within 48 Hours Sepsis New/Unexplained Change in Mental Status Sepsis Action Taken by Nursing Oxygen Flow Rate - Titration Pulse Oximetry Post Tiitration 02/26/25 03:30 Temperature Temperature Source Pulse Rate Pulse Rate [Apical] 69 Pulse Rhythm [Apical] Regular Respiratory Rate 20 Respiratory Effort / Characteristics SOB on Exertion Respiratory Depth Blood Pressure Blood Pressure [Right Arm] 152/85 H Blood Pressure Mean Blood Pressure Mean [Right Arm] 107 Blood Pressure Position [Right Arm] Semi-fowlers Pulse Oximetry 92 Oxygen Delivery Method Nasal Cannula Oxygen Flow Rate 4 Sepsis Recent Fever Within 48 Hours Sepsis New/Unexplained Change in Mental Status Sepsis Action Taken by Nursing Oxygen Flow Rate - Titration Pulse Oximetry Post Tiitration Laboratory Data 02/26/25 00:23 02/26/25 00:23 Lab Results 02/26/25 02/26/25 02/26/25 Range/Units 00:23 01:05 02:58 WBC 15.06 H (4.8-10.8) K/ul RBC 5.02 (4.70-6.10) M/uL Hgb 15.9 (14.0-18.0) g/dl Hct 46.5 (42.0-52.0) % MCV 92.6 (80.0-100.0) fL MCH 31.7 (25.0-34.0) pg MCHC 34.2 (32.0-36.0) g/dL RDW Std Deviation 54.0 H (36.4-46.3) fL RDW Coeff of Mark 15.9 H (11.5-14.5) % Plt Count 266 (130-400) K/uL MPV 9.4 (9.4-12.4) fL Immature Gran % (Auto) 2.1 % Neut % (Auto) 58.6 % Lymph % (Auto) 28.8 % [place] % (Auto) 7.0 % Eos % (Auto) 2.8 % Baso % (Auto) 0.7 % Neut # (Auto) 8.82 H (1.40-6.50) K/uL Lymph # (Auto) 4.34 H (1.20-3.40) K/uL [place] # (Auto) 1.06 H (0.11-0.59) K/uL Eos # (Auto) 0.42 (0.00-0.50) K/uL Baso # (Auto) 0.11 (0.00-0.20) K/uL Immature Gran # (Auto) 0.31 H (0.01-0.20) K/uL PT 10.6 (9.0-12.0) Seconds INR 1.0 (0.9-1.1) Sodium 139 (136-145) mmol/L Potassium 4.1 (3.5-5.1) mmol/L Chloride 106 (98-107) mmol/L Carbon Dioxide 26 (21-32) mmol/L Anion Gap 7 (3-11) BUN 23 (6-23) mg/dl Creatinine 1.69 H (0.6-1.4) mg/dl Est Cr Clr Drug Dosing 38.6 ml/min eGFR 40.79 BUN/Creatinine Ratio 13.6 (10-20) Glucose 155 H (70-99(Fasting)) mg/dl Calcium 9.2 (8.6-10.3) mg/dl Magnesium 2.1 (1.7-2.4) mg/dl Total Bilirubin 0.5 (0.2-1.0) mg/dl AST 17 (13-39) U/L ALT 10 (7-52) U/L Alkaline Phosphatase 82 (34-104) U/L Troponin I High Sens 9.8 (0-20) pg/ml B-Natriuretic Peptide 43 (0-100) pg/ml Total Protein 6.8 (6.0-8.3) gm/dl Albumin 3.5 (3.4-5.0) gm/dl Globulin 3.3 (2.5-4.0) gm/dl Albumin/Globulin Ratio 1.1 (0.9-2) Urine Color Yellow Urine Appearance Clear (Clear) Urine pH 5.5 (4.5-7.5) Ur Specific [place] 1.020 (1.000-1.030) Urine Protein 1+ H (Negative) Urine Glucose (UA) 3+ H (Negative) Urine Ketones Negative (Negative) Urine Blood Negative (Negative) Urine Nitrite Negative (Negative) Urine Bilirubin Negative (Negative) Urine Urobilinogen Negative (Negative) Ur Leukocyte Esterase Negative (Negative) Urine WBC (Auto) 0-5 (0-5) /hpf Urine RBC (Auto) 0-2 (0-2) /hpf U Hyaline Cast (Auto) 0-2 (0-2) /lpf U Epithel Cells (Auto) 0-2 (0-2) /hpf Urine Bacteria (Auto) None Seen (None Seen) Urine Comment Administered Medications Discontinued Medications Furosemide (Furosemide 40 Mg/4 Ml Vial) 40 mg IV ONE ONE Stop: 02/26/25 03:51 Last Admin: 02/26/25 03:58 Dose: Not Given Documented By: BARBER Furosemide (Furosemide Inj 20 Mg/2 Ml Vial) 20 mg IV ONE ONE Stop: 02/26/25 03:53 Last Admin: 02/26/25 04:32 Dose: 20 mg Documented By: BARBER Imaging Data Radiologist's Impression: Chest X-Ray 02/25/25 23:52 EXAM: XR chest 1V portable CLINICAL HISTORY: Dyspnea TECHNIQUE: An X-ray image of the chest is obtained in AP projection. COMPARISON: 02/06/2025 FINDINGS: Pulmonary Parenchyma: Unchanged left lower zone opacity, which is likely exaggerated due to the summation of soft tissue shadows and due to projectional factors. No definite pulmonary consolidation or collapse. No significant pleural effusion or thickening. Heart and Mediastinum: Apparent cardiomegaly, which could be exaggerated due to AP projection. Unchanged. No mediastinal masses. Bony Thorax: Mild degenerative changes of the visualized skeleton. Soft Tissues: Soft tissues overlying the chest wall are unremarkable. IMPRESSION: 1. No definite pulmonary consolidation or collapse. 2. Left lower zone opacity, which is likely exaggerated due to the summation of soft tissue shadows; however, clinical correlation is advised. 3. No significant interval change. Electronically signed by Remberto Marcial 02-26-2025 01:38 AM Discharge Plan Visit Data Chief Complaint: Shortness of Breath/Dyspnea Stated Complaint: TROUBLE BREATHING, RT RIB PAIN, SWOLLEN FEET ED Provider: Will Larios Discharge Problem: Chest pain, Bilateral edema of lower extremity, Hypoxia Patient Disposition: Admitted As Inpatient Condition: Good Discharge Instructions Interventions: ED Discharge Assessment Last Done: 02/26/25 04:40
[2025-02-26] MEDS ORDERED: FUROSEMIDE 40 MG/4 ML VIAL IV SCH (08:00)
[2025-02-26] MEDS ORDERED: amLODIPine BESYLATE 5 MG TAB PO SCH (09:00)
[2025-02-26] MEDS: ASPIRIN 81 MG ECTAB PO SCH (09:21)
[2025-02-26] MEDS: INSULIN ASPART PER UNIT CHARGE SC SCH ×2 (09:22→15:02)
[2025-02-26] MEDS: PANTOprazole 40 MG TAB PO SCH (09:22)
[2025-02-26] MEDS: CETIRIZINE HCL 10 MG TABLET PO SCH (09:22)
[2025-02-26] MEDS: METOPROLOL TARTRATE 50 MG TAB PO SCH (09:22)
[2025-02-26] MEDS: HEPARIN SOD 5,000 UNIT/0.5 ML VIAL SQ SCH (09:26)
[2025-02-26] MEDS: POTASSIUM CHLORIDE CRTAB 20 MEQ TABCR PO SCH (09:30)
[2025-02-26] MEDS: UMECLIDINIUM BROMIDE 62.5MCG/BLISTER 7 PUFFS/INHALER INH SCH (09:31)
[2025-02-26] MEDS: FLUTICASONE/VILANTEROL 200/25MCG 14 PUFFS/INHALER INH SCH (09:31)
--- NOTE | 2025-02-26 11:18 | Hospitalist Progress Note ---
Date of Service February 26, 2025 Assessment & Plan (1) Acute diastolic (congestive) heart failure: Plan: Parenteral Lasix therapy. Monitor intake and output. Repeat chest x-ray again tomorrow, February 27 (2) Hypoxia: Plan: Acute respiratory failure with hypoxia present on admission. Oxygen per nasal cannula to maintain saturation greater than 90%. Wean off as tolerated (3) Hypertension: Plan: Metoprolol dosage has been uptitrated. Lisinopril discontinued and amlodipine discontinued. Will follow (4) Lower extremity edema: Plan: Due to CHF and probable amlodipine component. Amlodipine has been discontinued. CHF is being treated with parenteral Lasix. (5) Stage 3b chronic kidney disease: Plan: Monitor intake and output. Serial labs. Currently stable. EMILEE inhibitor has been discontinued (6) COPD (chronic obstructive pulmonary disease): Plan: Currently stable. No audible wheezing. Treat underlying CHF Plan Hopeful discharge back to home within the next day or 2 Admission and Anticipated Discharge Date Admission Date: February 26, 2025 Subjective Alert and oriented. No distress. Amlodipine has been discontinued because it is causing lower extremity edema that can be confused with exacerbation of his CHF edema. He is now on parenteral Lasix every 12 hours. Will repeat chest x- ray again tomorrow. Metoprolol dosage has been uptitrated and lisinopril has been discontinued. Creatinine 1.6. Blood pressure improved to 145/69. Recent cardiac echo reveals normal left ventricular ejection fraction with mild LVH Review of Systems 2 Review of Systems: Constitutionalno fever or chills ENTno blurred vision, no double vision, no epistaxis, no sore throat Respiratoryno cough, no wheezing. Orthopnea and dyspnea on exertion Cardiacno palpitations, no chest pain, no syncope Adele nausea, vomiting, diarrhea, melena, hematochezia GUno urinary retention, no urinary incontinence, no dysuria, no hematuria Musculoskeletalno joint pain, no muscle tenderness. Bilateral lower extremity edema below the knees has worsened over the past several days Skinno bruising, no rashes, no pruritus Neurono isolated weakness, no paresthesia, no weakness Psychno depression, no anxiety Physical Exam 2 Physical Exam: General-alert and oriented x3, no fever, no chills HEENT-head atraumatic and normocephalic, pupils equal and reactive to light, extraocular muscles intact Neck-no lymphadenopathy or thyromegaly, trachea midline Chest-bibasilar inspiratory rales. No wheezing, rhonchi, dullness to percussion. Cardiac-regular rate and rhythm, normal S1 and S2 Abdomen-normal bowel sounds, no hepatosplenomegaly Yrayzutnwgg-[id number]+ pitting edema bilateral lower extremities below the knees Neuro-cranial nerves II through XII intact, motor and sensory function within normal limits, strength symmetrical, no focal deficits Psych-normal affect, normal mood Results & Data Results & Data Vital Signs (Past 12 Hours) Vital Signs Temp Pulse Pulse Pulse Resp BP BP 02/26/25 07:37 36.7 C 66 18 145/69 H 02/26/25 05:25 80 02/26/25 04:56 02/26/25 04:56 36.5 C 72 22 141/80 H 02/26/25 04:30 71 20 148/82 H 02/26/25 03:30 69 20 152/85 H 02/26/25 01:42 69 20 161/88 H 02/26/25 01:42 67 02/25/25 23:58 20 02/25/25 23:57 66 22 02/25/25 23:52 02/25/25 23:44 36.6 C 77 20 163/90 H Pulse Ox O2 Del Method O2 Flow Rate 02/26/25 07:37 95 Nasal Cannula 2 02/26/25 05:25 02/26/25 04:56 Nasal Cannula 1.5 02/26/25 04:56 97 Nasal Cannula 1.5 02/26/25 04:30 95 Nasal Cannula 4 02/26/25 03:30 92 Nasal Cannula 4 02/26/25 01:42 95 Oxymask 4 02/26/25 01:42 02/25/25 23:58 91 Nasal Cannula 4 02/25/25 23:57 86 L Room Air 02/25/25 23:52 87 L Nasal Cannula 0 02/25/25 23:44 93 Room Air Laboratory Results 02/26/25 00:23 02/26/25 00:23 PG Care Time/CCT Total # of Minutes Spent Total Time Spent with Patient: Total time spent is greater than 50% in coordination of care (as documented) at patient's floor/unit and/or counseling patient: Coding Level of Care Code 22717 SUB INP/OBS CARE 3/50MIN Diagnoses Acute diastolic (congestive) heart failure I50.31 Hypoxia R09.02 Hypertension I10 Hypertension type: unspecified Lower extremity edema R60.0 Stage 3b chronic kidney disease N18.32 COPD (chronic obstructive pulmonary disease) J44.9 COPD type: unspecified COPD (3) Hypertension Hypertension type: unspecified Qualified Code(s): I10 - Essential (primary) hypertension (6) COPD (chronic obstructive pulmonary disease) COPD type: unspecified COPD Qualified Code(s): J44.9 - Chronic obstructive pulmonary disease, unspecified
[2025-02-26] MEDS: MONTELUKAST SODIUM 10 MG TABLET PO SCH (20:07)
[2025-02-26] MEDS: PRAVASTATIN SOD 40 MG TAB PO SCH (20:07)
--- NOTE | 2025-02-26 21:59 | Electrocardiogram Report ---
Test Reason : Blood Pressure : */* mmHG Vent. 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
[2025-02-27 06:49] LABS: Basophils % (auto) 0.7 %; Eosinophils # (auto) 0.45 K/uL (0.00-0.50); Eosinophils % (auto) 3.1 %; Hematocrit (blood only) 49.4 % (42.0-52.0); Hemoglobin 16.8 g/dl (14.0-18.0); Immature Granulocytes # (auto) 0.27 K/uL (0.01-0.20); Immature Granulocytes % (auto) 1.9 %; Lymphocytes # (auto) 4.08 K/uL (1.20-3.40); Mean Corpuscular Hemoglobin 31.1 pg (25.0-34.0); Mean Corpuscular Volume 91.3 fL (80.0-100.0); Mean Platelet Volume 8.8 fL (9.4-12.4); Monocytes # (auto) 0.85 K/uL (0.11-0.59); Monocytes % (auto) 5.8 %; Neutrophils # (auto) 8.81 K/uL (1.40-6.50); Neutrophils % (auto) 60.5 %; Platelet Count 241 K/uL (130-400); RDW Coefficient of Variation 16.2 % (11.5-14.5); RDW Standard Deviation 53.1 fL (36.4-46.3); Red Blood Count 5.41 M/uL (4.70-6.10); White Blood Count 14.56 K/ul (4.8-10.8)
[2025-02-27 07:07] LABS: BUN Creatinine Ratio 15.1 (10-20); Calcium 9.3 mg/dl (8.6-10.3); Potassium 3.4 mmol/L (3.5-5.1)
[2025-02-27 07:13] LABS: Troponin I High Sensitivity 8.8 pg/ml (0-20)
--- NOTE | 2025-02-27 07:54 | XRay Report ---
EXAM: XR chest 1V portable CLINICAL HISTORY: CHF TECHNIQUE: X-ray image of the chest obtained in frontal projection. COMPARISON: Prior X-ray dated 02/25/2025 for comparison. FINDINGS: Pulmonary Parenchyma: Unchanged prominent bronchovascular margins in bilateral lungs. No evidence of consolidation, collapse, or focal opacities. No pulmonary nodules identified. No evidence of pleural effusion or pleural thickening. Heart and Mediastinum: Cardiomegaly. No mediastinal widening or masses. No hilar or mediastinal lymphadenopathy. Bony Thorax: Bony thorax appears intact without fractures or deformities. Soft Tissues: Soft tissues overlying the chest wall are unremarkable. IMPRESSION: 1. Unchanged prominent bronchovascular markings in bilateral lungs are likely due to congestion. 2. Cardiomegaly. 3. No interval changes. Electronically signed by Remberto Marcial 02-27-2025 07:53 AM
[2025-02-27 08:20] VITALS: RESP 20
[2025-02-27] MEDS ORDERED: FUROSEMIDE 40 MG TAB PO SCH (09:00)
--- NOTE | 2025-02-27 11:37 | Hospitalist Progress Note ---
Date of Service February 27, 2025 Assessment & Plan (1) Acute diastolic (congestive) heart failure: Plan: Chest x-ray done today, February 27, looks better. Continue parenteral Lasix therapy. Monitor intake and output. (2) Hypoxia: Plan: Acute respiratory failure with hypoxia present on admission. Now resolved. He is on room air. (3) Hypokalemia: Plan: Mild. Due to parenteral diuretic therapy. Potassium supplementation uptitrated to twice daily dosing. Serial labs (4) Hypertension: Plan: Metoprolol dosage has been uptitrated. Lisinopril discontinued and amlodipine discontinued. Blood pressure is acceptable. Will follow (5) Lower extremity edema: Plan: Due to CHF and probable amlodipine component. Amlodipine has been discontinued. CHF is being treated with parenteral Lasix. (6) Stage 3b chronic kidney disease: Plan: Stable. Monitor intake and output. Serial labs. Currently stable. EMILEE inhibitor has been discontinued (7) COPD (chronic obstructive pulmonary disease): Plan: Currently stable. No audible wheezing. Treat underlying CHF Plan Hopeful discharge back to home tomorrow, February 28 Admission and Anticipated Discharge Date Admission Date: February 26, 2025 Subjective Alert and oriented. No distress. Blood pressure and heart rate are acceptable. Amlodipine and lisinopril have been discontinued. Metoprolol has been uptitrated. Chest x-ray done today, February 27, looks better to my eye. He is now on room air. Creatinine is stable at 1.7. Potassium has been uptitrated to twice daily dosing due to mildly low potassium at 3.4. Hopefully he can go home tomorrow, February 28 Review of Systems 2 Review of Systems: Constitutionalno fever or chills ENTno blurred vision, no double vision, no epistaxis, no sore throat Respiratoryno cough, no wheezing. Orthopnea and dyspnea on exertion Cardiacno palpitations, no chest pain, no syncope Adele nausea, vomiting, diarrhea, melena, hematochezia GUno urinary retention, no urinary incontinence, no dysuria, no hematuria Musculoskeletalno joint pain, no muscle tenderness. Bilateral lower extremity edema below the knees has worsened over the past several days Skinno bruising, no rashes, no pruritus Neurono isolated weakness, no paresthesia, no weakness Psychno depression, no anxiety Physical Exam 2 Physical Exam: General-alert and oriented x3, no fever, no chills HEENT-head atraumatic and normocephalic, pupils equal and reactive to light, extraocular muscles intact Neck-no lymphadenopathy or thyromegaly, trachea midline Chest-bibasilar inspiratory rales. No wheezing, rhonchi, dullness to percussion. Cardiac-regular rate and rhythm, normal S1 and S2 Abdomen-normal bowel sounds, no hepatosplenomegaly Cdzqcetpodm-4-3+ pitting edema bilateral lower extremities below the knees Neuro-cranial nerves II through XII intact, motor and sensory function within normal limits, strength symmetrical, no focal deficits Psych-normal affect, normal mood Results & Data Results & Data Vital Signs (Past 12 Hours) Vital Signs Temp Pulse Resp BP Pulse Ox O2 Del Method 02/27/25 08:19 36.7 C 62 20 146/86 H 91 Room Air 02/27/25 04:45 36.3 C L 62 19 135/78 90 Room Air Laboratory Results 02/27/25 06:37 02/27/25 06:37 PG Care Time/CCT Total # of Minutes Spent Total Time Spent with Patient: Total time spent is greater than 50% in coordination of care (as documented) at patient's floor/unit and/or counseling patient: Coding Level of Care Code 99620 SUB INP/OBS CARE 3/50MIN Diagnoses Acute diastolic (congestive) heart failure I50.31 Hypoxia R09.02 Hypokalemia E87.6 Hypertension I10 Hypertension type: unspecified Lower extremity edema R60.0 Stage 3b chronic kidney disease N18.32 COPD (chronic obstructive pulmonary disease) J44.9 COPD type: unspecified COPD (4) Hypertension Hypertension type: unspecified Qualified Code(s): I10 - Essential (primary) hypertension (7) COPD (chronic obstructive pulmonary disease) COPD type: unspecified COPD Qualified Code(s): J44.9 - Chronic obstructive pulmonary disease, unspecified
[2025-02-27] MEDS: POTASSIUM CHLORIDE CRTAB 20 MEQ TABCR PO SCH (20:08)
[2025-02-28 07:39] LABS: BUN Creatinine Ratio 15.4 (10-20); Calcium 9.1 mg/dl (8.6-10.3); Creatinine Clr Calc Pharmacy 40.1 ml/min; Potassium 3.8 mmol/L (3.5-5.1)
[2025-02-28 08:17] VITALS: O2SAT 91
[2025-02-28] MEDS: FUROSEMIDE 40 MG TAB PO SCH (09:28)
--- NOTE | 2025-02-28 11:27 | Discharge Summary ---
Discharge Summary Date of Service February 28, 2025 Principal Dx & Hospital Course #1 = Principal Diagnosis (1) Acute diastolic (congestive) heart failure: Chest x-ray done on February 27 looked better. Treated while hospitalized with parenteral Lasix therapy. Home Lasix dosage uptitrated at discharge. (2) Hypoxia: Acute respiratory failure with hypoxia present on admission. Now resolved. He is on room air. (3) Hypokalemia: Mild. Due to parenteral diuretic therapy. Potassium supplementation uptitrated to twice daily dosing. He will resume his regular dosing at discharge. Serial labs (4) Hypertension: Metoprolol dosage has been uptitrated. Lisinopril discontinued and amlodipine discontinued. Blood pressure is acceptable. Will follow (5) Lower extremity edema: Due to CHF and probable amlodipine component. Amlodipine has been discontinued. CHF was treated with parenteral Lasix. Hopefully lower extremity edema will improve over time (6) Stage 3b chronic kidney disease: Stable. Monitor intake and output. Serial labs. Currently stable. EMILEE inhibitor has been discontinued (7) COPD (chronic obstructive pulmonary disease): Currently stable. No audible wheezing. Treat underlying CHF Plan Home today, February 28 Admission HPI Per Admitting Provider Patient is a 79-year-old male with past medical history of diastolic heart failure, COPD, stage III CKD, type II DM, CHRISTIAN on 2L at bedtime, HTN, lower extremity edema, chronic leukocytosis. Patient presented due to shortness of breath and was found to be 86% on room air, currently on 4L NC at time of admis ravi. Patient with recurrent admissions in the past for acute CHF; most recent 01/30- 02.03 in which IV diuresis caused GEOVANNI. His Lisinopril has been held since this admission and he had a recent visit with nephrology they recommended holding for an additional month based off laboratories as creatinine has been fluctuating. Patient saw CHF clinic 02/16 which recommended Lasix 20 mg daily and further wo rkup for possible venous insufficiency. Patient seen at bedside. He stated that he has been sedentary recently due to his feet hurting and he has an appointment arranged with podiatry. Today he was working outside which is much more labored than he has been used to when he developed shortness of breath and right sided achy chest pain as well as a fluttering sensation. This went away with rest. He has had no episodes since and has felt no pain similar to this in the past. He was unsure if he pulled something, work too hard, or if there was something else going on so he came into the ED. Patient stated he also has chest pain with deep inspiration today. He has had bilateral lower extremity edema that he stated has been worse for approximately 2 weeks, stable since recent Doppler study. he tries to follow a low-sodium diet and has been compliant with his home Lasix. He stated his weight has been consistently 212lbs. he denies any dizziness, lightheadedness, current chest pain, cough, congestion, nausea, vomiting, diarrhea. He denies history of VTE. He stated he has home oxygen 2L at bedtime for CHRISTIAN and also uses 2 L as needed with exertion. He took all of his medications and wishes to maintain his DNR/DNI status. Discharge Exam General-alert and oriented x3, no fever, no chills HEENT-head atraumatic and normocephalic, pupils equal and reactive to light, extraocular muscles intact Neck-no lymphadenopathy or thyromegaly, trachea midline Chest-bibasilar inspiratory rales. No wheezing, rhonchi, dullness to percus ravi. Cardiac-regular rate and rhythm, normal S1 and S2 Abdomen-normal bowel sounds, no hepatosplenomegaly Kpncojbhrxw-4-4+ pitting edema bilateral lower extremities below the knees Neuro-cranial nerves II through XII intact, motor and sensory function within normal limits, strength symmetrical, no focal deficits Psych-normal affect, normal mood Discharge Plan Discharge Items Patient Disposition: Home - Self-Care Reason For Visit: HYPOXIA,ACUTE CHF Discharge Diagnosis: Acute on chronic diastolic congestive heart failure, elevated blood pressure, acute hypoxic respiratory failure Condition on Discharge: Good Activity: Resume your previous activity Non-emergency contact: Primary Care Provider and Open Claims Representative Call non-emergency contact if: you have any medication questions and your symptoms worsen Follow-up/Referrals: Juanita Carlson PA-C [Primary Care Provider] - Diet: Regular and Heart Healthy Addtl Attending Provider Instructions: Lasix dosage has been increased. Metoprolol dosage has been increased. New prescriptions have been sent to [facility] pharmacy on . Amlodipine and lisinopril are discontinued. 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 Pending Studies at Discharge: No Stand-Alone Forms: My [facility], Smoking Cessation Medications and DC Order Prescriptions: New furosemide 40 mg Tablet 40 mg PO QAM Qty: 30 0RF metoprolol tartrate 50 mg Tablet 50 mg PO BID Qty: 60 0RF Continued cetirizine 10 mg tablet 10 mg PO DAILY aspirin 81 mg tablet,delayed release (DR/EC) 81 mg PO DAILY dapagliflozin propanediol [Farxiga] 10 mg tablet 10 mg PO DAILY Qty: 90 3RF Hold Instructions: please hold due to your kidney function level; only resume if your outpatient providers ask you to resume fluticasone propion-salmeterol [Advair Diskus] 500-50 mcg/dose blister with device 1 inh inhalation BID Qty: 60 7RF montelukast 10 mg tablet 10 mg PO HS Qty: 30 7RF cholecalciferol (vitamin D3) 2,000 unit Capsule 2,000 unit PO QAM pravastatin 40 mg Tablet 40 mg PO HS cyanocobalamin (vitamin B-12) [Vitamin B-12] 500 mcg Tablet 500 mcg PO DAILY acetaminophen 500 mg Tablet 500 mg PO Q6H PRN (Reason: Pain) sitagliptin 50 mg Tablet 50 mg PO DAILY pantoprazole 40 mg Tablet,Delayed Release (Dr/Ec) 40 mg PO QAM Qty: 30 0RF benzonatate 100 mg Capsule 100 mg PO TID PRN (Reason: Cough) glipizide 5 mg Tablet 2.5 mg PO QAM tiotropium bromide 2.5 mcg/actuation Mist 2 puff INHALATION DAILY potassium chloride 20 mEq tablet extended release 20 meq PO DAILY Qty: 0 0RF Rx Instructions: note lower dose Discontinued furosemide [Lasix] 20 mg tablet 20 mg PO DAILY Qty: 30 5RF lisinopril 10 mg tablet 10 mg PO DAILY Qty: 90 3RF Hold Instructions: hold unless your outpatient doctors recommend resuming it metoprolol tartrate 50 mg Tablet 25 mg PO BID amlodipine 10 mg Tablet 5 mg PO DAILY Discharge Orders: Discharge Order- CHF (Routine); Ordered 02/28/25 Ordered By: Jose Rueda Admission Data Admit Date/Time: 02/26/25 03:40 Attending Provider: Jose Rueda Admit Provider: Lynn Myles Primary Care Provider: Juanita Carlson Other Providers: Lynn Myles Hospital Stay Data Consultations 02/26/25 02:58 ED Decision to Admit Stat Pending Results Patient Have Any Pending Studies at Discharge: No Discharge Instructions Given to Patient (Per Discharging Provider) Lasix dosage has been increased. Metoprolol dosage has been increased. New prescriptions have been sent to [facility] pharmacy on [address]. Amlodipine and lisinopril are discontinued. 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 Total Time Total Time Spent Total Time Spent (In Minutes): 50 minutes Coding Level of Care Code 86849 INP/OBS DISCH >30 MIN Diagnoses Acute diastolic (congestive) heart failure I50.31 Hypoxia R09.02 Hypokalemia E87.6 Hypertension I10 Hypertension type: unspecified Lower extremity edema R60.0 Stage 3b chronic kidney disease N18.32 COPD (chronic obstructive pulmonary disease) J44.9 COPD type: unspecified COPD
[2025-02-28 11:38] VITALS: BP 119/62; PULSE 64; TEMP 98.4
== END 2025-02-28 12:05 | disposition home or self-care (01) | DRG 291 ==
LOC: ED 23:41 → SUATTDRO 02-26 03:40 → 2N 02-26 03:40

== ENCOUNTER 2025-04-26 00:08 | Inpatient (IN) ==
--- NOTE | 2025-04-26 00:49 | Emergency Department Note ---
Impression & Plan GEOVANNI (acute kidney injury), Bilateral edema of lower extremity Admit to the [facility] ED Provider Note NAME: AMI ALONSO AGE: 80 SEX: Male INFORMANT: Patient ED PROVIDER(S): Liz Del Rosario DO CHIEF COMPLAINT: Swelling to his ankles and feet PLAN: Disposition: admit to the [facility] MEDICAL DECISION MAKING: This is an 80-year-old male patient who presents to the emergency department with increased swelling to his ankles and feet. Patient has noted over the past 2 days that his ankles and feet have doubled in size. He has been attending the [facility] and is now finding it difficult to ambulate because of the swelling. The patient has a long history of this same presentation. In reviewing his medical record, he has come to the emergency department in the past with lower extremity swelling. Patient does have a history of CHF and takes 40 mg of Lasix a day. portable chest x-ray shows evidence of bilateral pleural effusions and some evidence of CHF. Laboratory studies revealed no evidence of anemia. White blood cell count was elevated to 14. Of concern, the patient's BUN was up to 30 and creatinine was up to 2.16 which is moderately above his baseline. Glucose was up to 178 and urinalysis revealed 3+ glucose. Patient had explained that he recently restarted his EMILEE inhibitor but blood pressure remains elevated. Patient has been spending time at the [facility] for the past 2 days where he has been walking a lot in the heat and has been eating food like hoagies and cheesesteaks. This most likely has contributed to the patient's fluid overload as well. Care/management discussed with: [facility] Triage Nursing notes: reviewed and agree with them. Vital Signs: reviewed and remarkable for hypertension Chronic Medical/Social Conditions affecting care: CHF Prior/ Outside/ External records reviewed: I reviewed inpatient records from February of this year Differential Diagnosis: medication side effects, CHF, GEOVANNI, hyponatremia, pneumonia Diagnostics, independently interpreted by me: ECG: Normal sinus rhythm at a rate of 74 with first-degree AV block and right bundle branch block. There is no evidence of ST segment elevation. There are no signs of ischemia. Cardiac Monitoring: Normal sinus rhythm at a rate of 80 Imaging studies: Portable chest x-ray: cardiomegaly with bilateral pleural effusions and vascular congestion as per my independent interpretation HPI: 80 year old Male arrives for evaluation of swelling to his ankles and feet. Patient has noted over the past 2 days that his ankles and feet have doubled in size. He has been attending the [facility] and is now finding it difficult to ambulate because of the swelling. PAST MEDICAL HISTORY: See Below, PAST SURGICAL HISTORY: See Below, SOCIAL HISTORY: See Below, HOME MEDICATIONS: see list ALLERGIES: see list VITALS: See Below PHYSICAL EXAMINATION: HEENT: Head - normocephalic and atraumatic. Pupils are equal, round, and reactive to light. Extraocular eye muscles are intact, and sclera are anicteric. Nose - moist nasal mucosa without discharge. Mouth - moist buccal mucosa. Oropharynx is nonerythematous and there is no tonsillar exudate or edema noted. Neck: Supple; no Obvious JVD Heart: Regular rate and rhythm. There is a normal S1 and S2 with no murmurs, clicks, or gallops appreciated. Lungs: diminished breath sounds at both lung bases Abdomen: Soft, protuberant but nontender, with good bowel sounds. There are no palpable pulsatile masses or hepatosplenomegaly. There is no guarding, rigidity, or rebound noted. Extremities: 3+ pitting edema both lower extremities. Skin: warm and dry with good turgor and no rashes. Emergency department course: The patient was evaluated in room A12. A complete history and physical was performed. An order was placed for continuous cardiac monitoring. The patient was in a normal sinus rhythm at a rate of 80. Twelve-lead EKG was obtained as described above. Portable chest x- ray was performed as described above. The patient was initially hypertensive upon arrival. Blood pressure came down Slightly on its own. I discussed the case with the [facility] hospitalist and they will evaluate for further inpatient care. Past Med/Surg History Problem List (Updated 04/26/25 @ 02:32 by Liz Del Rosario DO) Bilateral edema of lower extremity (Acute) GEOVANNI (acute kidney injury) (Acute) Hypokalemia Hypoxia (Acute) Chest pain (Acute) Hypertension (HFpEF) heart failure with preserved ejection fraction Acute diastolic (congestive) heart failure Bilateral edema of lower extremity (Acute) Leukocytosis Elevated INR CKD (chronic kidney disease) (Acute) SILVERIO (dyspnea on exertion) (Acute) COPD exacerbation (Acute) Anemia Lumbar back pain with radiculopathy affecting left lower extremity Intractable low back pain (Acute) Viral gastroenteritis Hypomagnesemia (Acute) Acute kidney injury superimposed on chronic kidney disease (Acute) Sepsis (Acute) Acute dyspnea (Acute) Contusion of left chest wall (Acute) Cough (Acute) Abrasion of knee, left (Acute) Chest wall contusion (Acute) Fall (Acute) Left-sided chest wall pain (Acute) Ex-smoker Alveolar emphysema of lung Peripheral eosinophilia Asthma-COPD overlap syndrome Proteinuria Vitamin D deficiency Coronavirus infection (Acute) Lab test negative for COVID-19 virus (Acute) Cough (Acute) Hypoxemia (Acute) Bronchitis (Acute) Acute exacerbation of chronic obstructive pulmonary disease (COPD) 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 (Acute) COVID Hyperlipidemia Substernal precordial chest pain (Acute) SOB (shortness of breath) (Acute) Mitral regurgitation Calculus of proximal left ureter (Acute) Hydronephrosis due to obstruction of ureter (Acute) Vision loss of left eye (Chronic) Medical History GEOVANNI (acute kidney injury) Acute bronchitis Flu-like symptoms SOB (shortness of breath) Hypoxia Hyperglycemia Acute hypoxic respiratory failure Type 2 diabetes mellitus Hypertension CHRISTIAN (obstructive sleep apnea) COPD (chronic obstructive pulmonary disease) CKD (chronic kidney disease) stage 3, GFR 30-59 ml/min Diabetes mellitus, type II Hypoxic Pneumonia due to COVID-19 virus Chest pain Acute kidney injury superimposed on CKD Cervical pain (neck) Pulmonary nodules Dyspnea on exertion Orthopnea Osteoarthritis Nephrolithiasis Surgical History Hx of cystoscopy STENT INSERTION AND NOW HAS CHRONIC PAIN IN LEFT LEG SINCE SURGERY H/O eye surgery RETINA REPAIR IN BOTH EYES Family History Father Congestive heart failure Mother Cancer Social History Smoking Status: Never smoker Tobacco Type: Cigarettes Second Hand Exposure: No; Do You Dip or Chew Tobacco: No; Hx Alcohol Use: No Hx Substance Use: No Preferred Language: Sami Communication Ability: Effective Visual Impairment: Partially Limited Bait Digger Required: No Beliefs That Will Affect Care: None marital status: / Current Living Situation: Family Current Living Situation Comment: lives with granddaugher, her and their 4 kids and 2 dogs current occupational status: retired How many Children do You have: 3 Feels Safe at Home: Yes Diet: diabetic during the past year weight has: remained stable Assistive Devices: Cane, Oxygen - at Night and Walker Allergies Allergies Allergy/AdvReac Type Severity Reaction Status Date / Time Influenza Virus Vaccines Allergy Severe Shortness Verified 03/17/25 14:27 of breath ipratropium [From Combivent] Allergy Unknown On med Verified 03/17/25 14:27 list from [facility] atorvastatin AdvReac Intermediate Cramping Verified 03/17/25 14:27 of the Muscles simvastatin AdvReac Intermediate Cramping Verified 03/17/25 14:27 of the Muscles Home Meds Home Medications Medication Instructions Recorded Confirmed cholecalciferol (vitamin D3) 50 2,000 unit PO QAM 09/20/18 03/17/25 mcg (2,000 unit) capsule pravastatin 40 mg tablet 40 mg PO HS 09/20/18 03/17/25 aspirin 81 mg tablet,delayed 81 mg PO DAILY 06/20/21 03/17/25 release cetirizine 10 mg tablet 10 mg PO DAILY 06/20/21 03/17/25 cyanocobalamin (vitamin B-12) 500 500 mcg PO DAILY 03/28/22 03/17/25 mcg tablet (Vitamin B-12) acetaminophen 500 mg tablet 500 mg PO Q6H PRN Pain 09/17/24 03/17/25 sitagliptin 50 mg tablet 50 mg PO DAILY 09/17/24 03/17/25 benzonatate 100 mg capsule 100 mg PO TID PRN Cough 01/18/25 03/17/25 glipizide 5 mg tablet 2.5 mg PO QAM 01/18/25 03/17/25 Previous Rx's Medication Instructions Recorded dapagliflozin propanediol 10 mg 10 mg PO DAILY #90 tabs 10/01/24 tablet (Farxiga) pantoprazole 40 mg tablet,delayed 40 mg PO QAM #30 tabs 10/12/24 release furosemide 40 mg tablet 40 mg PO QAM #30 tabs 02/28/25 metoprolol tartrate 50 mg tablet 50 mg PO BID #60 tabs 02/28/25 potassium chloride 20 mEq 40 meq (2 x 20 mEq) PO DAILY #0 03/03/25 tablet,extended release tabs fluticasone 500 mcg-salmeterol 50 1 inh inhalation BID #60 ea 04/07/25 mcg/dose blistr powdr for inhalation (Advair Diskus) montelukast 10 mg tablet 10 mg PO HS #30 tabs 04/07/25 tiotropium bromide 2.5 2 puff inhalation DAILY #4 grams 04/07/25 mcg/actuation mist for inhalation Results & Data (ED) Vital Signs Vital Signs - 24 hr 04/26/25 00:11 04/26/25 00:24 04/26/25 00:44 Temperature 36.8 C Temperature Source Temporal Artery Scan Pulse Rate 84 80 72 Pulse Rate [Apical] Pulse Rhythm Regular Pulse Rhythm [Apical] Pulse Strength [Apical] Respiratory Rate 19 18 Respiratory Effort / Characteristics Respiratory Depth Blood Pressure 203/64 H Blood Pressure [Right Arm] Blood Pressure Mean 110 Blood Pressure Mean [Right Arm] Blood Pressure Position [Right Arm] Pulse Oximetry 94 92 Oxygen Delivery Method Room Air Room Air Sepsis Recent Fever Within 48 Hours No Sepsis New/Unexplained Change in Mental Status N/A Sepsis Action Taken by Nursing No Action Required 04/26/25 02:00 04/26/25 03:00 04/26/25 04:17 Temperature 36.8 C Temperature Source Oral Pulse Rate 69 Pulse Rate [Apical] 78 75 Pulse Rhythm Pulse Rhythm [Apical] Regular Regular Pulse Strength [Apical] Normal Normal Respiratory Rate 18 20 Respiratory Effort / Characteristics Non-Labored Spontaneous Non-Labored Spontaneous Respiratory Depth Normal Normal Blood Pressure Blood Pressure [Right Arm] 173/84 H 183/91 H Blood Pressure Mean Blood Pressure Mean [Right Arm] 113 121 Blood Pressure Position [Right Arm] Semi-fowlers Semi-fowlers Pulse Oximetry 97 92 Oxygen Delivery Method Room Air Room Air Sepsis Recent Fever Within 48 Hours Sepsis New/Unexplained Change in Mental Status Sepsis Action Taken by Nursing Laboratory Data 04/26/25 00:44 04/26/25 00:44 Lab Results 04/26/25 04/26/25 Range/Units 00:44 02:14 WBC 14.25 H (4.8-10.8) K/ul RBC 5.23 (4.70-6.10) M/uL Hgb 16.2 (14.0-18.0) g/dl Hct 48.7 (42.0-52.0) % MCV 93.1 (80.0-100.0) fL MCH 31.0 (25.0-34.0) pg MCHC 33.3 (32.0-36.0) g/dL RDW Std Deviation 55.5 H (36.4-46.3) fL RDW Coeff of Mark 16.4 H (11.5-14.5) % Plt Count 214 (130-400) K/uL MPV 9.3 L (9.4-12.4) fL Immature Gran % (Auto) 1.0 % Neut % (Auto) 60.2 % Lymph % (Auto) 27.6 % [place] % (Auto) 7.4 % Eos % (Auto) 3.2 % Baso % (Auto) 0.6 % Neut # (Auto) 8.59 H (1.40-6.50) K/uL Lymph # (Auto) 3.94 H (1.20-3.40) K/uL [place] # (Auto) 1.05 H (0.11-0.59) K/uL Eos # (Auto) 0.45 (0.00-0.50) K/uL Baso # (Auto) 0.08 (0.00-0.20) K/uL Immature Gran # (Auto) 0.14 (0.01-0.20) K/uL Sodium 137 (136-145) mmol/L Potassium 3.7 (3.5-5.1) mmol/L Chloride 106 (98-107) mmol/L Carbon Dioxide 25 (21-32) mmol/L Anion Gap 6 (3-11) BUN 30 H (6-23) mg/dl Creatinine 2.16 H (0.6-1.4) mg/dl Est Cr Clr Drug Dosing 30.7 ml/min eGFR 30.20 BUN/Creatinine Ratio 13.9 (10-20) Glucose 178 H (70-99(Fasting)) mg/dl Calcium 9.2 (8.6-10.3) mg/dl Magnesium 2.0 (1.7-2.4) mg/dl Total Bilirubin 1.0 (0.2-1.0) mg/dl AST 17 (13-39) U/L ALT 11 (7-52) U/L Alkaline Phosphatase 78 (34-104) U/L Total Protein 6.5 (6.0-8.3) gm/dl Albumin 3.5 (3.4-5.0) gm/dl Globulin 3.0 (2.5-4.0) gm/dl Albumin/Globulin Ratio 1.2 (0.9-2) Urine Color Yellow Urine Appearance Clear (Clear) Urine pH 6.0 (4.5-7.5) Ur Specific [place] 1.015 (1.000-1.030) Urine Protein 1+ H (Negative) Urine Glucose (UA) 3+ H (Negative) Urine Ketones Negative (Negative) Urine Blood Negative (Negative) Urine Nitrite Negative (Negative) Urine Bilirubin Negative (Negative) Urine Urobilinogen Negative (Negative) Ur Leukocyte Esterase Negative (Negative) Urine WBC (Auto) 0-5 (0-5) /hpf Urine RBC (Auto) 0-2 (0-2) /hpf U Hyaline Cast (Auto) 0-2 (0-2) /lpf U Epithel Cells (Auto) 0-2 (0-2) /hpf Urine Bacteria (Auto) None Seen (None Seen) Urine Comment Administered Medications Discontinued Medications Lorazepam (Lorazepam 2 Mg/1 Ml Vial) 0.5 mg IV NOW STA Stop: 04/26/25 03:45 Last Admin: 04/26/25 04:18 Dose: Not Given Documented By: WESTON Imaging Data Radiologist's Impression: Chest X-Ray 04/26/25 00:44 EXAM: XR chest 1V portable CLINICAL HISTORY: weakness TECHNIQUE: Radiograph of chest was acquired. 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 Prominent vascular markings are seen in the lung mcbride. The cardiac shadow is mildly enlarged. No acute osseous abnormality. IMPRESSION: 1. Mild bilateral pleural effusion - new finding. 2. Mild cardiomegaly.- stable Electronically signed by Ayan Salgado 04-26-2025 02:29 AM Discharge Plan Visit Data Chief Complaint: Swelling/Edema to Extremity Stated Complaint: FEET SWELLING AND LEGS ALSO ED Provider: Liz Del Rosario Discharge Problem: GEOVANNI (acute kidney injury), Bilateral edema of lower extremity Condition: Serious Prescriptions Prescriptions: No Action fluticasone propion-salmeterol [Advair Diskus] 500-50 mcg/dose blister with device 1 inh inhalation BID Qty: 60 4RF montelukast 10 mg tablet 10 mg PO HS Qty: 30 4RF tiotropium bromide 2.5 mcg/actuation mist 2 puff INHALATION DAILY Qty: 4 4RF cetirizine 10 mg tablet 10 mg PO DAILY aspirin 81 mg tablet,delayed release (DR/EC) 81 mg PO DAILY dapagliflozin propanediol [Farxiga] 10 mg tablet 10 mg PO DAILY Qty: 90 3RF Hold Instructions: please hold due to your kidney function level; only resume if your outpatient providers ask you to resume potassium chloride 20 mEq tablet extended release 40 meq PO DAILY Qty: 0 0RF cholecalciferol (vitamin D3) 2,000 unit Capsule 2,000 unit PO QAM pravastatin 40 mg Tablet 40 mg PO HS cyanocobalamin (vitamin B-12) [Vitamin B-12] 500 mcg Tablet 500 mcg PO DAILY acetaminophen 500 mg Tablet 500 mg PO Q6H PRN (Reason: Pain) sitagliptin 50 mg Tablet 50 mg PO DAILY pantoprazole 40 mg Tablet,Delayed Release (Dr/Ec) 40 mg PO QAM Qty: 30 0RF furosemide 40 mg Tablet 40 mg PO QAM Qty: 30 0RF metoprolol tartrate 50 mg Tablet 50 mg PO BID Qty: 60 0RF benzonatate 100 mg Capsule 100 mg PO TID PRN (Reason: Cough) glipizide 5 mg Tablet 2.5 mg PO QAM
[2025-04-26 01:23] LABS: Hematocrit (blood only) 48.7 % (42.0-52.0); Hemoglobin 16.2 g/dl (14.0-18.0); Immature Granulocytes # (auto) 0.14 K/uL (0.01-0.20); Immature Granulocytes % (auto) 1.0 %; Mean Corpuscular Hemoglobin 31.0 pg (25.0-34.0); Mean Corpuscular Volume 93.1 fL (80.0-100.0); Platelet Count 214 K/uL (130-400); RDW Standard Deviation 55.5 fL (36.4-46.3); Red Blood Count 5.23 M/uL (4.70-6.10); White Blood Count 14.25 K/ul (4.8-10.8)
[2025-04-26 01:41] LABS: Alanine Aminotransferase 11.0 U/L (7-52); Albumin Globulin Ratio 1.2 (0.9-2); Alkaline Phosphatase 78.0 U/L (34-104); Anion Gap 6.0 (3-11); Bilirubin,Total 1.0 mg/dl (0.2-1.0); Blood Urea Nitrogen 30.0 mg/dl (6-23); Calcium 9.2 mg/dl (8.6-10.3); Carbon Dioxide 25.0 mmol/L (21-32); Chloride 106.0 mmol/L (98-107); Creatinine Clr Calc Pharmacy 30.7 ml/min; Globulin 3.0 gm/dl (2.5-4.0); Glucose 178.0 mg/dl (70-99(Fasting)); Magnesium 2.0 mg/dl (1.7-2.4); Potassium 3.7 mmol/L (3.5-5.1); Sodium 137.0 mmol/L (136-145); Total Protein 6.5 gm/dl (6.0-8.3)
--- NOTE | 2025-04-26 02:29 | XRay Report ---
EXAM: XR chest 1V portable CLINICAL HISTORY: weakness TECHNIQUE: Radiograph of chest was acquired. 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 Prominent vascular markings are seen in the lung mcbride. The cardiac shadow is mildly enlarged. No acute osseous abnormality. IMPRESSION: 1. Mild bilateral pleural effusion - new finding. 2. Mild cardiomegaly.- stable Electronically signed by Ayan Salgado 04-26-2025 02:29 AM
[2025-04-26 03:29] LABS: Appearance Urine Clear (Clear); Bacteria Urine Automated None Seen (None Seen); Cast Urine Automated 0-2 /lpf (0-2); Epithelial Cell Urine Auto 0-2 /hpf (0-2); Glucose Urine UA 3+ (Negative); RBC Urine Automated 0-2 /hpf (0-2); WBC Urine Automated 0-5 /hpf (0-5)
--- NOTE | 2025-04-26 04:00 | History & Physical Report ---
Date of Service April 26, 2025 Assessment & Plan (1) Bilateral edema of lower extremity: (2) (HFpEF) heart failure with preserved ejection fraction: (3) Acute kidney injury superimposed on chronic kidney disease: (4) Asthma-COPD overlap syndrome: Plan The patient is a 89-year-old male with a past medical history including lower extremity edema, hypertension, HFpEF, CKD, COPD, history of sepsis, asthma-COPD overlap syndrome, hyperlipidemia and history of kidney stones. The patient presents to the emergency department with concern regarding increasing lower extremity edema, with his legs and feet about doubled in size at baseline. He has been eating more different because of foods at the [employer]. He does not have shortness of breath at rest but does note dyspnea on exertion. He has been taking his diuretic furosemide and potassium supplement as directed. Bilateral lower extremity edema/HFpEF/hypertension- The patient will be admitted to telemetry for serial cardiac enzymes, serial EKG's, cardiac rhythm monitoring Most recent echocardiogram from 02/01/2025 with ejection fraction 60-65%, with no significant change compared to 08/14/2023 Worsening lower extremity is most likely secondary to dietary indiscretions with increased sodium intake at the [facility] Give albumin 25 g IV now, and furosemide 40 mg IV x 1 Follow response, additional dosing will depend on effectiveness of initial treatment Continue aspirin, metoprolol tartrate, potassium chloride Acute kidney injury superimposed on CKD- Creatinine 2.16, with base 1.62- Follow laboratories renal function panel, magnesium levels closely while patient is getting diuresed Diabetes mellitus- Hold glipizide, sitagliptin and Farxiga [facility] and at bedtime with NovoLog coverage per scale Check hemoglobin A1c Hyperlipidemia- Continue pravastatin Check a fasting lipid panel Asthma-COPD overlap syndrome- Continue cetirizine, substitute for Symbicort, montelukast, and tiotropium GERD- Continue pantoprazole History of Present Illness Chief Complaint: The patient presents to the emergency department with complaint of increased swelling from his knees to his feet that began over the past 2 days. He has been attending a [facility], and reports that he has been having difficulty walking around due to swelling and increased size of his feet. He reports taking his furosemide and potassium as directed. He does not report any chest pain. He does have shortness of breath and a particular dyspnea on exertion. Primary Care Provider: Juanita Carlson PA-C The patient is a 89-year-old male with a past medical history including lower extremity edema, hypertension, HFpEF, CKD, COPD, history of sepsis, asthma-COPD overlap syndrome, hyperlipidemia and history of kidney stones. The patient presents to the emergency department with concern regarding increasing lower extremity edema, with his legs and feet about doubled in size at baseline. He has been eating more different because of foods at the [employer]. He does not have shortness of breath at rest but does note dyspnea on exertion. He has been taking his diuretic furosemide and potassium supplement as directed. Allergies Allergy/AdvReac Type Severity Reaction Status Date / Time Influenza Virus Vaccines Allergy Severe Shortness Verified 03/17/25 14:27 of breath ipratropium [From Combivent] Allergy Unknown On med Verified 03/17/25 14:27 list from [facility] atorvastatin AdvReac Intermediate Cramping Verified 03/17/25 14:27 of the Muscles simvastatin AdvReac Intermediate Cramping Verified 03/17/25 14:27 of the Muscles Home Medications Medication Instructions Recorded Confirmed Type cholecalciferol (vitamin D3) 50 2,000 unit PO QAM 09/20/18 03/17/25 History mcg (2,000 unit) capsule pravastatin 40 mg tablet 40 mg PO HS 09/20/18 03/17/25 History aspirin 81 mg tablet,delayed 81 mg PO DAILY 06/20/21 03/17/25 History release cetirizine 10 mg tablet 10 mg PO DAILY 06/20/21 03/17/25 History cyanocobalamin (vitamin B-12) 500 500 mcg PO DAILY 03/28/22 03/17/25 History mcg tablet (Vitamin B-12) acetaminophen 500 mg tablet 500 mg PO Q6H PRN Pain 09/17/24 03/17/25 History sitagliptin 50 mg tablet 50 mg PO DAILY 09/17/24 03/17/25 History dapagliflozin propanediol 10 mg 10 mg PO DAILY #90 tabs 10/01/24 03/17/25 Rx tablet (Farxiga) pantoprazole 40 mg tablet,delayed 40 mg PO QAM #30 tabs 10/12/24 03/17/25 Rx release benzonatate 100 mg capsule 100 mg PO TID PRN Cough 01/18/25 03/17/25 History glipizide 5 mg tablet 2.5 mg PO QAM 01/18/25 03/17/25 History furosemide 40 mg tablet 40 mg PO QAM #30 tabs 02/28/25 03/17/25 Rx metoprolol tartrate 50 mg tablet 50 mg PO BID #60 tabs 02/28/25 03/17/25 Rx potassium chloride 20 mEq 40 meq (2 x 20 mEq) PO DAILY #0 03/03/25 03/17/25 Rx tablet,extended release tabs fluticasone 500 mcg-salmeterol 50 1 inh inhalation BID #60 ea 04/07/25 Rx mcg/dose blistr powdr for inhalation (Advair Diskus) montelukast 10 mg tablet 10 mg PO HS #30 tabs 04/07/25 Rx tiotropium bromide 2.5 2 puff inhalation DAILY #4 grams 04/07/25 Rx mcg/actuation mist for inhalation Past Med/Surg History Problem List (Updated 04/26/25 @ 02:32 by Liz Del Rosario DO) Bilateral edema of lower extremity (Acute) GEOVANNI (acute kidney injury) (Acute) Hypokalemia Hypoxia (Acute) Chest pain (Acute) Hypertension (HFpEF) heart failure with preserved ejection fraction Acute diastolic (congestive) heart failure Bilateral edema of lower extremity (Acute) Leukocytosis Elevated INR CKD (chronic kidney disease) (Acute) SILVERIO (dyspnea on exertion) (Acute) COPD exacerbation (Acute) Anemia Lumbar back pain with radiculopathy affecting left lower extremity Intractable low back pain (Acute) Viral gastroenteritis Hypomagnesemia (Acute) Acute kidney injury superimposed on chronic kidney disease (Acute) Sepsis (Acute) Acute dyspnea (Acute) Contusion of left chest wall (Acute) Cough (Acute) Abrasion of knee, left (Acute) Chest wall contusion (Acute) Fall (Acute) Left-sided chest wall pain (Acute) Ex-smoker Alveolar emphysema of lung Peripheral eosinophilia Asthma-COPD overlap syndrome Proteinuria Vitamin D deficiency Coronavirus infection (Acute) Lab test negative for COVID-19 virus (Acute) Cough (Acute) Hypoxemia (Acute) Bronchitis (Acute) Acute exacerbation of chronic obstructive pulmonary disease (COPD) 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 (Acute) COVID Hyperlipidemia Substernal precordial chest pain (Acute) SOB (shortness of breath) (Acute) Mitral regurgitation Calculus of proximal left ureter (Acute) Hydronephrosis due to obstruction of ureter (Acute) Vision loss of left eye (Chronic) Medical History GEOVANNI (acute kidney injury) Acute bronchitis Flu-like symptoms SOB (shortness of breath) Hypoxia Hyperglycemia Acute hypoxic respiratory failure Type 2 diabetes mellitus Hypertension CHRISTIAN (obstructive sleep apnea) COPD (chronic obstructive pulmonary disease) CKD (chronic kidney disease) stage 3, GFR 30-59 ml/min Diabetes mellitus, type II Hypoxic Pneumonia due to COVID-19 virus Chest pain Acute kidney injury superimposed on CKD Cervical pain (neck) Pulmonary nodules Dyspnea on exertion Orthopnea Osteoarthritis Nephrolithiasis Surgical History Hx of cystoscopy STENT INSERTION AND NOW HAS CHRONIC PAIN IN LEFT LEG SINCE SURGERY H/O eye surgery RETINA REPAIR IN BOTH EYES Family History Father Congestive heart failure Mother Cancer Social History Smoking Status: Never smoker Tobacco Type: Cigarettes Second Hand Exposure: No; Do You Dip or Chew Tobacco: No; Hx Alcohol Use: No Hx Substance Use: No Preferred Language: Yemeni Communication Ability: Effective Visual Impairment: Partially Limited Business Office Director Required: No Beliefs That Will Affect Care: None marital status: / Current Living Situation: Family Current Living Situation Comment: lives with granddaugher, her and their 4 kids and 2 dogs current occupational status: retired How many Children do You have: 3 Feels Safe at Home: Yes Diet: diabetic during the past year weight has: remained stable Assistive Devices: Cane, Oxygen - at Night and Walker Review of Systems Review of Systems: The patient denies chest pain, palpitations, cough, sore throat, fevers, chills, sweats, nausea, vomiting, diarrhea , constipation, abdominal pain, pelvic pain, blood in urine or stool, dysuria, urinary frequency or urgency, lightheadedness, dizziness, headache, memory loss, loss of consciousness, rash, abnormal bruising or bleeding, focal weakness, numbness or tingling in arms or legs, generalized arthralgias or myalgias, back or neck pain, or night sweats. The review of systems is otherwise negative other than for that already noted above, and at least 10 systems have been reviewed. Physical Exam Physical Exam: The patient is awake, alert and oriented 3, well developed and well nourished, normocephalic and atraumatic, lying in bed and in no acute distress. HEENT--PERRL, EOMI, mucous membranes and oropharynx mildly dry secondary to mouth breathing Neck--supple. No JVD. No bruits. Thyroid normal, trachea midline, no adenopathy. Heart--normal S1 and S2. No murmurs, rubs or gallops. Lungs--decreased breath sounds throughout Abdomen--normal bowel sounds and soft. Nontender. Nondistended Extremities--2+ bilateral pretibial and pedal pitting edema Dermatologic--normal skin turgor, normal color, no abnormal lymph nodes, no rash. Neurologic--cranial nerves II through XII grossly intact. Rheumatologic--normal range of motion. Psychiatric--normal affect. Results & Data Results & Data Vital Signs (Past 12 Hours) Vital Signs Temp Pulse Pulse Resp BP BP Pulse Ox 04/26/25 03:00 36.8 C 75 20 183/91 H 92 04/26/25 02:00 78 18 173/84 H 97 04/26/25 00:44 72 18 92 04/26/25 00:24 80 04/26/25 00:11 36.8 C 84 19 203/64 H 94 O2 Del Method 04/26/25 03:00 Room Air 04/26/25 02:00 Room Air 04/26/25 00:44 Room Air 04/26/25 00:24 04/26/25 00:11 Room Air Laboratory Results Laboratory Results WBC 14.25 K/ul (4.8-10.8) H 04/26/25 00:44 RBC 5.23 M/uL (4.70-6.10) 04/26/25 00:44 Hgb 16.2 g/dl (14.0-18.0) 04/26/25 00:44 Hct 48.7 % (42.0-52.0) 04/26/25 00:44 MCV 93.1 fL (80.0-100.0) 04/26/25 00:44 MCH 31.0 pg (25.0-34.0) 04/26/25 00:44 MCHC 33.3 g/dL (32.0-36.0) 04/26/25 00:44 RDW Std Deviation 55.5 fL (36.4-46.3) H 04/26/25 00:44 RDW Coeff of Mark 16.4 % (11.5-14.5) H 04/26/25 00:44 Plt Count 214 K/uL (130-400) 04/26/25 00:44 MPV 9.3 fL (9.4-12.4) L 04/26/25 00:44 Immature Gran % (Auto) 1.0 % 04/26/25 00:44 Neut % (Auto) 60.2 % 04/26/25 00:44 Lymph % (Auto) 27.6 % 04/26/25 00:44 [place] % (Auto) 7.4 % 04/26/25 00:44 Eos % (Auto) 3.2 % 04/26/25 00:44 Baso % (Auto) 0.6 % 04/26/25 00:44 Neut # (Auto) 8.59 K/uL (1.40-6.50) H 04/26/25 00:44 Lymph # (Auto) 3.94 K/uL (1.20-3.40) H 04/26/25 00:44 [place] # (Auto) 1.05 K/uL (0.11-0.59) H 04/26/25 00:44 Eos # (Auto) 0.45 K/uL (0.00-0.50) 04/26/25 00:44 Baso # (Auto) 0.08 K/uL (0.00-0.20) 04/26/25 00:44 Immature Gran # (Auto) 0.14 K/uL (0.01-0.20) 04/26/25 00:44 Sodium 137 mmol/L (136-145) 04/26/25 00:44 Potassium 3.7 mmol/L (3.5-5.1) 04/26/25 00:44 Chloride 106 mmol/L (98-107) 04/26/25 00:44 Carbon Dioxide 25 mmol/L (21-32) 04/26/25 00:44 Anion Gap 6 (3-11) 04/26/25 00:44 BUN 30 mg/dl (6-23) H 04/26/25 00:44 Creatinine 2.16 mg/dl (0.6-1.4) H 04/26/25 00:44 Est Cr Clr Drug Dosing 30.7 ml/min 04/26/25 00:44 eGFR 30.20 04/26/25 00:44 BUN/Creatinine Ratio 13.9 (10-20) 04/26/25 00:44 Glucose 178 mg/dl (70-99(Fasting)) H 04/26/25 00:44 Calcium 9.2 mg/dl (8.6-10.3) 04/26/25 00:44 Magnesium 2.0 mg/dl (1.7-2.4) 04/26/25 00:44 Total Bilirubin 1.0 mg/dl (0.2-1.0) 04/26/25 00:44 AST 17 U/L (13-39) 04/26/25 00:44 ALT 11 U/L (7-52) 04/26/25 00:44 Alkaline Phosphatase 78 U/L (34-104) 04/26/25 00:44 Troponin I High Sens 14.4 pg/ml (0-20) 04/26/25 03:29 Total Protein 6.5 gm/dl (6.0-8.3) 04/26/25 00:44 Albumin 3.5 gm/dl (3.4-5.0) 04/26/25 00:44 Globulin 3.0 gm/dl (2.5-4.0) 04/26/25 00:44 Albumin/Globulin Ratio 1.2 (0.9-2) 04/26/25 00:44 Urine Color Yellow 04/26/25 02:14 Urine Appearance Clear (Clear) 04/26/25 02:14 Urine pH 6.0 (4.5-7.5) 04/26/25 02:14 Ur Specific [place] 1.015 (1.000-1.030) 04/26/25 02:14 Urine Protein 1+ (Negative) H 04/26/25 02:14 Urine Glucose (UA) 3+ (Negative) H 04/26/25 02:14 Urine Ketones Negative (Negative) 04/26/25 02:14 Urine Blood Negative (Negative) 04/26/25 02:14 Urine Nitrite Negative (Negative) 04/26/25 02:14 Urine Bilirubin Negative (Negative) 04/26/25 02:14 Urine Urobilinogen Negative (Negative) 04/26/25 02:14 Ur Leukocyte Esterase Negative (Negative) 04/26/25 02:14 Urine WBC (Auto) 0-5 /hpf (0-5) 04/26/25 02:14 Urine RBC (Auto) 0-2 /hpf (0-2) 04/26/25 02:14 U Hyaline Cast (Auto) 0-2 /lpf (0-2) 04/26/25 02:14 U Epithel Cells (Auto) 0-2 /hpf (0-2) 04/26/25 02:14 Urine Bacteria (Auto) None Seen (None Seen) 04/26/25 02:14 Urine Comment 04/26/25 02:14 Impressions Chest X-Ray 04/26/25 00:44 EXAM: XR chest 1V portable CLINICAL HISTORY: weakness TECHNIQUE: Radiograph of chest was acquired. COMPARISON: CR 02/27/2025 06:03:04 [employer]. 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 Prominent vascular markings are seen in the lung mcbride. The cardiac shadow is mildly enlarged. No acute osseous abnormality. IMPRESSION: 1. Mild bilateral pleural effusion - new finding. 2. Mild cardiomegaly.- stable Electronically signed by Ayan Salgado 04-26-2025 02:29 AM Code Status & VTE Plan Code Status DNR/DNI VTE Prophylaxis Plan VTE Prophylaxis will be ordered: Yes PG Care Time/CCT Total # of Minutes Spent Total Time Spent with Patient: Total time spent is greater than 50% in coordination of care (as documented) at patient's floor/unit and/or counseling patient: Coding Level of Care Code 31308 INT INP/OBS CARE 3/75MIN Diagnoses Bilateral edema of lower extremity R60.0 (HFpEF) heart failure with preserved ejection fraction I50.30 Acute kidney injury superimposed on chronic kidney disease N17.9; N18.9 Asthma-COPD overlap syndrome J44.89
[2025-04-26] MEDS: FUROSEMIDE 40 MG/4 ML VIAL IV ONE (04:32)
[2025-04-26] MEDS: ALBUMIN 25% 25 GM/100 ML VIAL IV ONE (04:34)
[2025-04-26 05:02] LABS: Cholesterol 153.0 mg/dl (0-200); HDL Cholesterol 34.0 mg/dl; Triglycerides 157.0 mg/dl (0-150)
[2025-04-26] MEDS ORDERED: CARBOHYDRATES FOR HYPOGLYCEMIA PO PRN (05:10)
[2025-04-26] MEDS ORDERED: ONDANSETRON INJ 2 MG/ML 2 ML VIAL IV PRN (05:10)
[2025-04-26] MEDS ORDERED: GLUCOSE 10 TAB/TUBE PO PRN (05:10)
[2025-04-26] MEDS ORDERED: DEXTROSE 50% 50 ML SYRINGE IV PRN (05:10)
[2025-04-26] MEDS ORDERED: GLUCAGON FOR INJ 1 MG VIAL SQ PRN (05:10)
[2025-04-26] MEDS ORDERED: GLUCOSE 40% GEL 15 GM TUBE PO PRN (05:10)
[2025-04-26 07:31] LABS: Hemoglobin A1C 7.3 % (4.5-5.6)
[2025-04-26] MEDS: INSULIN ASPART PER UNIT CHARGE SC SCH (08:25)
[2025-04-26] MEDS: POTASSIUM CHLORIDE CRTAB 20 MEQ TABCR PO SCH (08:45)
[2025-04-26] MEDS: UMECLIDINIUM BROMIDE 62.5MCG/BLISTER 7 PUFFS/INHALER INH SCH (08:46)
[2025-04-26] MEDS: CYANOCOBALAMIN (B-12) 500 MCG TABLET PO SCH (08:46)
[2025-04-26] MEDS: CHOLECALCIFEROL 25 MCG (1000 UNITS) TAB PO SCH (08:46)
[2025-04-26] MEDS: METOPROLOL TARTRATE 50 MG TAB PO SCH (08:46)
[2025-04-26] MEDS: FLUTICASONE/VILANTEROL 200/25MCG 14 PUFFS/INHALER INH SCH (08:46)
[2025-04-26] MEDS: ASPIRIN 81 MG ECTAB PO SCH (08:46)
[2025-04-26] MEDS: CETIRIZINE HCL 10 MG TABLET PO SCH (08:46)
--- NOTE | 2025-04-26 08:51 | Hospitalist Progress Note ---
Date of Service April 26, 2025 Assessment & Plan (1) Bilateral edema of lower extremity: (2) (HFpEF) heart failure with preserved ejection fraction: (3) Acute kidney injury superimposed on chronic kidney disease: (4) Asthma-COPD overlap syndrome: Plan 89 yr old M with PMHx of HTN, HFpEF, CKD, COPD, asthma / COPD overlap syndrome, HLD, h/o renal stones, chronic LE edema prensents of [facility] on 04/26/25 for the evaluation of worsening LE edema. He states that his legs and feet doubled in size compared to his baseline. He stated that he has been indulging in different foods at [facility]. He denied dyspnea at rest but does note some SILVERIO. He has been compliant with his diuretics and potassium regimen. #Bilateral lower extremity edema/HFpEF/hypertension- The patient will be admitted to telemetry for serial cardiac enzymes, serial EKG's, cardiac rhythm monitoring Most recent echocardiogram from 02/01/2025 with ejection fraction 60-65%, with no significant change compared to 08/14/2023 Worsening lower extremity is most likely secondary to dietary indiscretions with increased sodium intake at the [facility] Give albumin 25 g IV now, and furosemide 40 mg IV x 1 Follow response, additional dosing will depend on effectiveness of initial treatment Continue aspirin, metoprolol tartrate, potassium chloride Acute kidney injury superimposed on CKD- Creatinine 2.16, with base 1.62- Follow laboratories renal function panel, magnesium levels closely while patient is getting diuresed - reassess Diabetes mellitus- Hold glipizide, sitagliptin and Farxiga Accu-Cheks AC and at bedtime with NovoLog coverage per scale hemoglobin A1c: 7.3 (04/26/25) Hyperlipidemia- Continue pravastatin Check a fasting lipid panel Asthma-COPD overlap syndrome- Continue cetirizine, substitute for Symbicort, montelukast, and tiotropium GERD- Continue pantoprazole Admission and Anticipated Discharge Date Admission Date: April 26, 2025 Results & Data Results & Data Vital Signs (Past 12 Hours) Vital Signs Temp Pulse Pulse Resp BP BP Pulse Ox 04/26/25 07:52 36.5 C 62 17 176/98 H 93 04/26/25 05:17 36.5 C 71 22 211/103 H 92 04/26/25 05:10 04/26/25 04:31 04/26/25 04:17 69 08/17/25 03:00 36.8 C 75 20 183/91 H 92 04/26/25 02:00 78 18 173/84 H 97 04/26/25 00:44 72 18 92 04/26/25 00:24 80 04/26/25 00:11 36.8 C 84 19 203/64 H 94 Pulse Ox O2 Del Method O2 Del Method 04/26/25 07:52 Room Air 04/26/25 05:17 Room Air 04/26/25 05:10 92 Room Air 04/26/25 04:31 Room Air 04/26/25 04:17 04/26/25 03:00 Room Air 04/26/25 02:00 Room Air 04/26/25 00:44 Room Air 04/26/25 00:24 04/26/25 00:11 Room Air PG Care Time/CCT Total # of Minutes Spent Total Time Spent with Patient: Total time spent is greater than 50% in coordination of care (as documented) at patient's floor/unit and/or counseling patient: Coding Diagnoses Bilateral edema of lower extremity R60.0 (HFpEF) heart failure with preserved ejection fraction I50.30 Acute kidney injury superimposed on chronic kidney disease N17.9; N18.9 Asthma-COPD overlap syndrome J44.89
--- NOTE | 2025-04-26 11:54 | Communication Note ---
Date of Service: April 26, 2025 Pt admitted this morning. He states that he is feeling better and not short of breath with walking. Gen: no acute distress, sitting in chair comfortable HEENT: NC/AT, MMM Lungs: nonlabored breathing, CTAB CVS: s1s2nl, RRR Abd: nl bowel sounds, soft, NT / ND : no vazquez Ext: 2+ pitting edema b/l LE to knees Neuro: AAOx3 Psych: calm cooperative Pt has received a single dose of Lasix this morning. Given renal dysfunction, reassess renal function tomorrow morning before additional diuretic dose. Rest of the plan per H&P
[2025-04-26] MEDS: MONTELUKAST SODIUM 10 MG TABLET PO SCH (20:34)
[2025-04-26] MEDS: PRAVASTATIN SOD 40 MG TAB PO SCH (20:34)
[2025-04-27 04:48] LABS: Hematocrit (blood only) 49.3 % (42.0-52.0); Hemoglobin 16.3 g/dl (14.0-18.0); Immature Granulocytes # (auto) 0.13 K/uL (0.01-0.20); Immature Granulocytes % (auto) 0.9 %; Mean Corpuscular Hemoglobin 31.0 pg (25.0-34.0); Mean Corpuscular Volume 93.7 fL (80.0-100.0); Platelet Count 224 K/uL (130-400); RDW Standard Deviation 55.6 fL (36.4-46.3); Red Blood Count 5.26 M/uL (4.70-6.10); White Blood Count 13.99 K/ul (4.8-10.8)
[2025-04-27 05:02] LABS: Anion Gap 7.0 (3-11); Blood Urea Nitrogen 28.0 mg/dl (6-23); Calcium 9.5 mg/dl (8.6-10.3); Carbon Dioxide 27.0 mmol/L (21-32); Chloride 104.0 mmol/L (98-107); Creatinine Clr Calc Pharmacy 27.1 ml/min; Glucose 164.0 mg/dl (70-99(Fasting)); Magnesium 2.1 mg/dl (1.7-2.4); Potassium 4.0 mmol/L (3.5-5.1); Sodium 138.0 mmol/L (136-145)
[2025-04-27 08:04] LABS: Hemoglobin A1C 7.4 % (4.5-5.6)
--- NOTE | 2025-04-27 09:43 | XRay Report ---
XR chest 1V portable CLINICAL HISTORY: CHF COMPARISON STUDY: 04/26/2025 FINDINGS: There is stable mild cardiomegaly with mild pulmonary vascular congestion. No consolidation or pleural effusion seen. No pneumothorax. IMPRESSION: CHF. ACT 112: Negative or not required by law. Electronically signed by: Dalton Naranjo M.D. 04/27/2025 9:42 AM
[2025-04-27] MEDS: FUROSEMIDE 40 MG/4 ML VIAL IV ONE (09:56)
[2025-04-27] MEDS: ACETAMINOPHEN 325 MG TAB PO PRN (09:57)
--- NOTE | 2025-04-27 15:33 | Electrocardiogram Report ---
Test Reason : Blood Pressure : */* mmHG Vent. Rate : 74 BPM Atrial Rate : 74 BPM P-R Int : 238 ms QRS Dur : 120 ms QT Int : 400 ms P-R-T Axes : -18 -10 -12 degrees QTcB Int : 444 ms Sinus rhythm with marked sinus arrhythmia with 1st degree A-V block Right bundle branch block Inferior infarct (cited on or before 28-Oct-2024) Cannot rule out Anterior infarct , age undetermined Abnormal ECG When compared with ECG of 25-Feb-2025 23:55, W[place] interval has increased Minimal criteria for Anterior infarct are now Present Confirmed by Ector Caballero ([id number]) on 04/27/2025 3:33:48 PM Referred By: REFERRED SELF Confirmed By: Ector Caballero
--- NOTE | 2025-04-27 17:22 | Hospitalist Progress Note ---
Date of Service April 27, 2025 Assessment & Plan (1) Bilateral edema of lower extremity: Plan: From CHF. Improving with parenteral Lasix diuresis. Monitor intake and output (2) (HFpEF) heart failure with preserved ejection fraction: Plan: Acute on chronic. Improving with parenteral Lasix diuresis. Continue to monitor intake and output (3) Acute kidney injury superimposed on chronic kidney disease: Plan: Stage III. Creatinine bumped up slightly from 2.1-2.3. Unfortunately, this is unavoidable. Will continue daily labs and monitor urine output (4) Asthma-COPD overlap syndrome: Plan: Stable. Continue current medical management Plan Hopeful discharge to home tomorrow, April 28 Admission and Anticipated Discharge Date Admission Date: April 26, 2025 Subjective Alert and oriented. Feeling better. He is on room air with 91% saturation. Creatinine bumped slightly with diuresis up to 2.3. Repeat chest x-ray done today, April 27 looks better. Will repeat parenteral Lasix today and hopefully he can go home tomorrow, April 28 Review of Systems 2 Review of Systems: Constitutionalno fever or chills ENTno blurred vision, no double vision, no epistaxis, no sore throat Respiratoryno cough, no wheezing, no shortness of breath at rest Cardiacno palpitations, no chest pain, no syncope Adele nausea, vomiting, diarrhea, melena, hematochezia GUno urinary retention, no urinary incontinence, no dysuria, no hematuria Musculoskeletalno joint pain, no muscle tenderness Skinno bruising, no rashes, no pruritus Neurono isolated weakness, no paresthesia, no weakness Psychno depression, no anxiety Physical Exam 2 Physical Exam: General-alert and oriented x3, no fever, no chills HEENT-head atraumatic and normocephalic, pupils equal and reactive to light, extraocular muscles intact Neck-no lymphadenopathy or thyromegaly, trachea midline Chest-diminished breath sounds bilaterally. Faint bibasilar inspiratory rales. Cardiac-regular rate and rhythm, normal S1 and S2 Abdomen-normal bowel sounds, no hepatosplenomegaly Extremities-no cyanosis, clubbing, or edema Neuro-cranial nerves II through XII intact, motor and sensory function within normal limits, strength symmetrical, no focal deficits Psych-normal affect, normal mood Results & Data Results & Data Vital Signs (Past 12 Hours) Vital Signs Temp Pulse Pulse Resp BP Pulse Ox O2 Del Method 04/27/25 16:29 36.6 C 62 17 153/77 H 90 Room Air 04/27/25 12:05 36.3 C L 70 17 153/90 H 92 Room Air 04/27/25 08:11 36.7 C 68 17 145/82 H 91 Room Air 04/27/25 07:30 65 Laboratory Results 04/27/25 03:58 04/27/25 03:58 PG Care Time/CCT Total # of Minutes Spent Total Time Spent with Patient: Total time spent is greater than 50% in coordination of care (as documented) at patient's floor/unit and/or counseling patient: Coding Level of Care Code 73535 SUB INP/OBS CARE 2/35MIN Diagnoses Bilateral edema of lower extremity R60.0 (HFpEF) heart failure with preserved ejection fraction I50.30 Acute kidney injury superimposed on chronic kidney disease N17.9; N18.9 Asthma-COPD overlap syndrome J44.89
[2025-04-28 06:16] LABS: Hematocrit (blood only) 44.5 % (42.0-52.0); Hemoglobin 15.4 g/dl (14.0-18.0); Immature Granulocytes # (auto) 0.10 K/uL (0.01-0.20); Immature Granulocytes % (auto) 0.8 %; Mean Corpuscular Hemoglobin 31.9 pg (25.0-34.0); Mean Corpuscular Volume 92.1 fL (80.0-100.0); Platelet Count 216 K/uL (130-400); RDW Standard Deviation 54.5 fL (36.4-46.3); Red Blood Count 4.83 M/uL (4.70-6.10); White Blood Count 11.80 K/ul (4.8-10.8)
[2025-04-28 06:33] LABS: Anion Gap 6.0 (3-11); Blood Urea Nitrogen 33.0 mg/dl (6-23); Calcium 8.9 mg/dl (8.6-10.3); Carbon Dioxide 26.0 mmol/L (21-32); Chloride 105.0 mmol/L (98-107); Creatinine Clr Calc Pharmacy 25.5 ml/min; Glucose 119.0 mg/dl (70-99(Fasting)); Magnesium 2.1 mg/dl (1.7-2.4); Potassium 3.7 mmol/L (3.5-5.1); Sodium 137.0 mmol/L (136-145)
[2025-04-28] MEDS: FUROSEMIDE 40 MG/4 ML VIAL IV SCH (10:43)
--- NOTE | 2025-04-28 12:43 | Hospitalist Progress Note ---
Date of Service April 28, 2025 Assessment & Plan (1) Bilateral edema of lower extremity: Plan: From CHF. Improving with parenteral Lasix diuresis. Monitor intake and output (2) (HFpEF) heart failure with preserved ejection fraction: Plan: Acute on chronic. Improving with parenteral Lasix diuresis. Continue to monitor intake and output (3) Acute kidney injury superimposed on chronic kidney disease: Plan: Stage III. Creatinine bumped up slightly from Lasix diuresis. Unfortunately, this is unavoidable. Will continue daily labs and monitor urine output (4) Asthma-COPD overlap syndrome: Plan: Stable. Continue current medical management (5) Hypertension: Plan: Significantly elevated systolic blood pressure this morning, April 28. This responded to several doses of intravenous hydralazine and he has been started on oral hydralazine which replaces lisinopril. Plan Anticipated discharge today has been postponed indefinitely. Admission and Anticipated Discharge Date Admission Date: April 28, 2025 Subjective He is not feeling very well today, April 28. His blood pressure was quite high this morning and hydralazine was administered intravenously several times and he has been started on oral hydralazine which replaces his lisinopril which has proven to be ineffective. Creatinine has risen slightly to 2.3 with IV diuresis. Chest x-ray done yesterday, April 27, looked better to my eye. Will repeat chest x-ray again tomorrow, April 29. Continue parenteral Lasix therapy. He has been admitted from observation status. Review of Systems 2 Review of Systems: Constitutionalno fever or chills ENTno blurred vision, no double vision, no epistaxis, no sore throat Respiratoryno cough, no wheezing, no shortness of breath at rest Cardiacno palpitations, no chest pain, no syncope Adele nausea, vomiting, diarrhea, melena, hematochezia GUno urinary retention, no urinary incontinence, no dysuria, no hematuria Musculoskeletalno joint pain, no muscle tenderness Skinno bruising, no rashes, no pruritus Neurono isolated weakness, no paresthesia, no weakness Psychno depression, no anxiety Physical Exam 2 Physical Exam: General-alert and oriented x3, no fever, no chills HEENT-head atraumatic and normocephalic, pupils equal and reactive to light, extraocular muscles intact Neck-no lymphadenopathy or thyromegaly, trachea midline Chest-diminished breath sounds bilaterally. Faint bibasilar inspiratory rales. Cardiac-regular rate and rhythm, normal S1 and S2 Abdomen-normal bowel sounds, no hepatosplenomegaly Extremities-no cyanosis, clubbing, or edema Neuro-cranial nerves II through XII intact, motor and sensory function within normal limits, strength symmetrical, no focal deficits Psych-normal affect, normal mood Results & Data Results & Data Vital Signs (Past 12 Hours) Vital Signs Temp Pulse Resp BP BP Pulse Ox O2 Del Method 04/28/25 11:32 37.0 C 80 16 120/68 94 Room Air 04/28/25 07:40 36.3 C L 68 17 208/84 H 192/114 H 91 Room Air 04/28/25 07:39 36.3 C L 64 22 91 Room Air 04/28/25 05:00 04/28/25 03:05 36.5 C 59 L 22 171/83 H 92 Room Air O2 Del Method 04/28/25 11:32 04/28/25 07:40 04/28/25 07:39 04/28/25 05:00 Room Air 04/28/25 03:05 Laboratory Results 04/28/25 05:36 04/28/25 05:36 PG Care Time/CCT Total # of Minutes Spent Total Time Spent with Patient: Total time spent is greater than 50% in coordination of care (as documented) at patient's floor/unit and/or counseling patient: Coding Level of Care Code 84504 SUB INP/OBS CARE 3/50MIN Diagnoses Bilateral edema of lower extremity R60.0 (HFpEF) heart failure with preserved ejection fraction I50.30 Acute kidney injury superimposed on chronic kidney disease N17.9; N18.9 Asthma-COPD overlap syndrome J44.89 Hypertension I10 Hypertension type: unspecified (5) Hypertension Hypertension type: unspecified Qualified Code(s): I10 - Essential (primary) hypertension
--- NOTE | 2025-04-29 07:31 | XRay Report ---
EXAM: XR chest 1V portable CLINICAL HISTORY: CHF TECHNIQUE: X-ray image of the chest obtained in 1 frontal projection. COMPARISON: Prior X-ray dated 04/26/2025 and 04/27/2025 for comparison. FINDINGS: Pulmonary Parenchyma: No evidence of consolidation, collapse, or focal opacities. No pulmonary nodules identified. Unchanged blunting of bilateral CP angles likely pleural effusion. Heart and Mediastinum: Cardiomegaly. No mediastinal widening or masses. No hilar or mediastinal lymphadenopathy. Bony Thorax: Bony thorax appears intact without fractures or deformities. Soft Tissues: Soft tissues overlying the chest wall are unremarkable. IMPRESSION: 1. Unchanged blunting of bilateral CP angles likely pleural effusion. 2. Cardiomegaly. Electronically signed by Remberto Marcial 04-29-2025 07:30 AM
--- NOTE | 2025-04-29 10:33 | Discharge Summary ---
Discharge Summary Date of Service April 29, 2025 Principal Dx & Hospital Course #1 = Principal Diagnosis (1) Bilateral edema of lower extremity: From CHF. Improved with parenteral Lasix diuresis. Monitor intake and output (2) (HFpEF) heart failure with preserved ejection fraction: Acute on chronic. Improved with parenteral Lasix diuresis. Continue to monitor intake and output. Chest x-ray done today, April 29, looks better (3) Acute kidney injury superimposed on chronic kidney disease: Stage III. Creatinine bumped up slightly from Lasix diuresis. Unfortunately, this is unavoidable. Will continue daily labs and monitor urine output (4) Asthma-COPD overlap syndrome: Stable. Continue current medical management (5) Hypertension: Significantly elevated systolic blood pressure on the morning of April 28. This responded to several doses of intravenous hydralazine and he has been started on oral hydralazine which replaces lisinopril. Hydralazine dosage uptitrated today, April 29 Plan Home today, April 29. Hydralazine replaces lisinopril. All other medications remain the same. He will see his primary care provider soon as possible. Admission HPI Per Admitting Provider The patient is a 89-year-old male with a past medical history including lower extremity edema, hypertension, HFpEF, CKD, COPD, history of sepsis, asthma-COPD overlap syndrome, hyperlipidemia and history of kidney stones. The patient presents to the emergency department with concern regarding increasing lower extremity edema, with his legs and feet about doubled in size at baseline. He has been eating more different because of foods at the [employer] He does not have shortness of breath at rest but does note dyspnea on exertion. He has been taking his diuretic furosemide and potassium supplement as directed. Discharge Exam General-alert and oriented x3, no fever, no chills HEENT-head atraumatic and normocephalic, pupils equal and reactive to light, extraocular muscles intact Neck-no lymphadenopathy or thyromegaly, trachea midline Chest-diminished breath sounds bilaterally. Faint bibasilar inspiratory rales have now resolved. Cardiac-regular rate and rhythm, normal S1 and S2 Abdomen-normal bowel sounds, no hepatosplenomegaly Extremities-no cyanosis. Peripheral lower extremity edema present on admission has markedly improved Neuro-cranial nerves II through XII intact, motor and sensory function within normal limits, strength symmetrical, no focal deficits Psych-normal affect, normal mood Discharge Plan Discharge Items Patient Disposition: Home - Self-Care Reason For Visit: LE EDEMA Discharge Diagnosis: Acute on chronic diastolic CHF, uncontrolled hypertension Condition on Discharge: Good Activity: Resume your previous activity Non-emergency contact: Primary Care Provider Call non-emergency contact if: your symptoms worsen Follow-up/Referrals: Juanita Carlson PA-C [Primary Care Provider] - Diet: Regular and Heart Healthy Addtl Attending Provider Instructions: Hydralazine replaces lisinopril. A prescription for hydralazine has been sent to the [facility] pharmacy on . All other medications remain the same. See your primary care provider soon as possible Pending Studies at Discharge: No Stand-Alone Forms: [facility] [employer], Smoking Cessation Medications and DC Order Prescriptions: New hydralazine 50 mg Tablet 50 mg PO TID Qty: 90 0RF Continued fluticasone propion-salmeterol [Advair Diskus] 500-50 mcg/dose blister with device 1 inh inhalation BID Qty: 60 4RF montelukast 10 mg tablet 10 mg PO HS Qty: 30 4RF tiotropium bromide 2.5 mcg/actuation mist 2 puff INHALATION DAILY Qty: 4 4RF cetirizine 10 mg tablet 10 mg PO DAILY aspirin 81 mg tablet,delayed release (DR/EC) 81 mg PO DAILY dapagliflozin propanediol [Farxiga] 10 mg tablet 10 mg PO DAILY Qty: 90 3RF Hold Instructions: please hold due to your kidney function level; only resume if your outpatient providers ask you to resume potassium chloride 20 mEq tablet extended release 40 meq PO DAILY Qty: 0 0RF cholecalciferol (vitamin D3) 2,000 unit Capsule 2,000 unit PO QAM pravastatin 40 mg Tablet 40 mg PO HS cyanocobalamin (vitamin B-12) [Vitamin B-12] 500 mcg Tablet 500 mcg PO DAILY acetaminophen 500 mg Tablet 500 mg PO Q6H PRN (Reason: Pain) sitagliptin 50 mg Tablet 50 mg PO DAILY pantoprazole 40 mg Tablet,Delayed Release (Dr/Ec) 40 mg PO QAM Qty: 30 0RF furosemide 40 mg Tablet 40 mg PO QAM Qty: 30 0RF metoprolol tartrate 50 mg Tablet 50 mg PO BID Qty: 60 0RF benzonatate 100 mg Capsule 100 mg PO TID PRN (Reason: Cough) glipizide 5 mg Tablet 2.5 mg PO QAM Discharge Orders: Discharge Order- CHF (Routine); Ordered 04/29/25 Ordered By: Jose Glasgow/Other Patient Handouts: Managing Type 2 Diabetes Admission Data Admit Date/Time: 04/28/25 10:25 Attending Provider: Jose Rueda Admit Provider: Fransico Vazquez Primary Care Provider: Juanita Carlson Other Providers: Fransico Vazquez; [facility],Hospital Hospital Stay Data Consultations 04/26/25 02:32 ED Decision to Admit Stat Pending Results Patient Have Any Pending Studies at Discharge: No Discharge Instructions Given to Patient (Per Discharging Provider) Hydralazine replaces lisinopril. A prescription for hydralazine has been sent to the [facility] pharmacy on . All other medications remain the same. See your primary care provider soon as possible Total Time Total Time Spent Total Time Spent (In Minutes): 45-minute Coding Level of Care Code 01309 INP/OBS DISCH >30 MIN Diagnoses Bilateral edema of lower extremity R60.0 (HFpEF) heart failure with preserved ejection fraction I50.30 Acute kidney injury superimposed on chronic kidney disease N17.9; N18.9 Asthma-COPD overlap syndrome J44.89 Hypertension I10 Hypertension type: unspecified
[2025-04-29 11:05] VITALS: PULSE 78; RESP 17; TEMP 97.3; O2SAT 93
[2025-04-29 11:07] VITALS: BP 144/84
== END 2025-04-29 11:51 | disposition home or self-care (01) | DRG 291 ==
LOC: 4W 00:08 → ED 00:08 → SUATTDRO 03:59 → 4W 04:31

== ENCOUNTER 2025-05-03 20:10 | Inpatient (IN) ==
[2025-05-03 20:45] LABS: Hematocrit (blood only) 49.1 % (42.0-52.0); Hemoglobin 16.5 g/dl (14.0-18.0); Immature Granulocytes # (auto) 0.08 K/uL (0.01-0.20); Immature Granulocytes % (auto) 0.6 %; Mean Corpuscular Hemoglobin 31.1 pg (25.0-34.0); Mean Corpuscular Volume 92.6 fL (80.0-100.0); Platelet Count 244 K/uL (130-400); RDW Standard Deviation 56.7 fL (36.4-46.3); Red Blood Count 5.30 M/uL (4.70-6.10); White Blood Count 14.41 K/ul (4.8-10.8)
[2025-05-03 21:04] LABS: Alanine Aminotransferase 11.0 U/L (7-52); Albumin Globulin Ratio 0.9 (0.9-2); Alkaline Phosphatase 76.0 U/L (34-104); Anion Gap 9.0 (3-11); Bilirubin,Total 0.9 mg/dl (0.2-1.0); Blood Urea Nitrogen 30.0 mg/dl (6-23); Calcium 9.7 mg/dl (8.6-10.3); Carbon Dioxide 23.0 mmol/L (21-32); Chloride 104.0 mmol/L (98-107); Creatinine Clr Calc Pharmacy 26.2 ml/min; Globulin 3.9 gm/dl (2.5-4.0); Glucose 173.0 mg/dl (70-99(Fasting)); Magnesium 2.2 mg/dl (1.7-2.4); Potassium 3.6 mmol/L (3.5-5.1); Sodium 136.0 mmol/L (136-145); Total Protein 7.5 gm/dl (6.0-8.3)
[2025-05-03] MEDS: FUROSEMIDE 40 MG/4 ML VIAL IV ONE (22:12)
--- NOTE | 2025-05-03 22:41 | Emergency Department Note ---
Impression & Plan Bilateral edema of lower extremity, Dyspnea on exertion, CKD (chronic kidney disease), CHF (congestive heart failure) ED Provider Note ED Provider Note NAME: AMI ALONSO AGE:80 SEX: Male : 1945 ARRIVES VIA: Private vehicle INFORMANT: Patient ED PROVIDER(s): Stacy Moscoso DO CHIEF COMPLAINT: increased leg swelling, shortness of breath HPI: This is an 80-year-old male presents emergency department due to concern for increased leg swelling and shortness of breath with exertion since he was discharged from this facility on . Patient states he has a history of CHF and is taking his furosemide daily. He states he has gained 6 pounds since being discharged home. He states he did contact his nurse through the [place] who advised him to come back to the emergency department for admission again. He denies any chest pain, worsening cough, fevers or chills, URI symptoms. PAST MEDICAL HISTORY:See Below PAST SURGICAL HISTORY:See Below FAMILY HISTORY:See Below SOCIAL HISTORY:See Below HOME MEDICATIONS:See Below ALLERGIES:See Below VITALS:See Below PHYSICAL EXAMINATION: GENERAL: alert, well appearing, well nourished, no distress, non-toxic EYE EXAM: normal conjunctiva, PERRL and EOM's grossly intact OROPHARYNX: no exudate, no erythema, lips, buccal mucosa, and tongue normal and mucous membranes are moist NECK: supple, no nuchal rigidity, no adenopathy, non-tender LUNGS: Clear to auscultation. Normal chest wall mechanics, no w/r, faint bibasilar rales HEART: no murmurs, S1 normal and S2 normal ABDOMEN: abdomen soft, non-tender, normo-active bowel sounds, no masses, no rebound or guarding. BACK: Back is symmetrical on inspection and there is no deformity, no midline tenderness, no CVA tenderness. SKIN: no rashes, petechiae, orbruising UPPER EXTREMITIES: upper extremities are grossly normal. FROM, nml pulses b/l. LOWER EXTREMITIES: 3+ b/l pitting edema. FROM, nml pulses b/l. NEURO EXAM: Normal sensorium, cranial nerves II-XII grossly intact, normal speech, no facial droop,nogross weakness of arms, no gross weakness of legs. Gross sensation intact. No ataxia. Vital Signs: reviewed and remarkable Differential Diagnosis: pneumonia, bronchitis, COPD/Asthma exacerbation, pneumothorax, pulmonary embolism, congestive heart failure, acute coronary syndrome, as well as others were considered MEDICAL DECISION MAKING: This is an 80-year-old male with a history of congestive heart failure who presents to the emergency department due to concern for increased lower extremity edema and 6 pound weight gain since his discharge last facility 4 days ago. Patient was afebrile and hemodynamically stable on arrival. Labs drawn and sent, IV established, EKG and CXR performed and interpreted at bedside, and patient placed on telemetry. I did review the patient's recent discharge summary as well as an echo performed earlier this year. Patient given additional dose of IV Lasix. Given complicated past medical history, recent admission, worsening edema despite use of Lasix at home, reported dyspnea with exertion, case discussed with hospitalist team for additional evaluation and management. Patient not overtly hypoxic here. Patient does wear oxygen at night for sleeping. Consultation(s): 2219: Discussed with Dr. Vazquez, [facility] hospitalist team, for additional evaluation and management. ER Treatment Provided: See below Diagnostics Interpreted By Me: -ECG: Normal sinus at 85, first-degree AV block, right bundle branch block, normal axis, no acute ST/T wave changes; after the no significant change compared to April 26, 2025 -Cardiac Monitoring: An order was placed for continuous cardiac monitoring. The monitor shows a rate of 80 with normal sinus rhythm. -Laboratory studies: As stated above and show below. -Imaging studies: X-ray Chest: A single view study of the chest was reviewed and was negative for cardiomegaly, focal infiltrate, effusion, or wide mediastinum. Slightly increased interstitial markings in bilateral lower lobes compared to prior. Triage Nursing Note Reviewed Prior/Outside Records Reviewed-discharge summary from reviewed Past Med/Surg History Problem List (Updated 05/03/25 @ 22:41 by Stacy Moscoso DO) CHF (congestive heart failure) (Acute) Dyspnea on exertion (Acute) Bilateral edema of lower extremity (Acute) Bilateral edema of lower extremity (Acute) GEOVANNI (acute kidney injury) (Acute) Hypokalemia Hypoxia (Acute) Chest pain (Acute) Hypertension (HFpEF) heart failure with preserved ejection fraction Acute diastolic (congestive) heart failure Bilateral edema of lower extremity (Acute) Leukocytosis Elevated INR CKD (chronic kidney disease) (Acute) SILVERIO (dyspnea on exertion) (Acute) COPD exacerbation (Acute) Anemia Lumbar back pain with radiculopathy affecting left lower extremity Intractable low back pain (Acute) Viral gastroenteritis Hypomagnesemia (Acute) Acute kidney injury superimposed on chronic kidney disease (Acute) Sepsis (Acute) Acute dyspnea (Acute) Contusion of left chest wall (Acute) Cough (Acute) Abrasion of knee, left (Acute) Chest wall contusion (Acute) Fall (Acute) Left-sided chest wall pain (Acute) Ex-smoker Alveolar emphysema of lung Peripheral eosinophilia Asthma-COPD overlap syndrome Proteinuria Vitamin D deficiency Coronavirus infection (Acute) Lab test negative for COVID-19 virus (Acute) Cough (Acute) Hypoxemia (Acute) Bronchitis (Acute) Acute exacerbation of chronic obstructive pulmonary disease (COPD) 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 (Acute) COVID Hyperlipidemia Substernal precordial chest pain (Acute) SOB (shortness of breath) (Acute) Mitral regurgitation Calculus of proximal left ureter (Acute) Hydronephrosis due to obstruction of ureter (Acute) Vision loss of left eye (Chronic) Medical History GEOVANNI (acute kidney injury) Acute bronchitis Flu-like symptoms SOB (shortness of breath) Hypoxia Hyperglycemia Acute hypoxic respiratory failure Type 2 diabetes mellitus Hypertension CHRISTIAN (obstructive sleep apnea) COPD (chronic obstructive pulmonary disease) CKD (chronic kidney disease) stage 3, GFR 30-59 ml/min Diabetes mellitus, type II Hypoxic Pneumonia due to COVID-19 virus Chest pain Acute kidney injury superimposed on CKD Cervical pain (neck) Pulmonary nodules Dyspnea on exertion Orthopnea Osteoarthritis Nephrolithiasis Surgical History Hx of cystoscopy STENT INSERTION AND NOW HAS CHRONIC PAIN IN LEFT LEG SINCE SURGERY H/O eye surgery RETINA REPAIR IN BOTH EYES Family History Father Congestive heart failure Mother Cancer Social History Smoking Status: Former smoker Tobacco Type: Cigarettes Second Hand Exposure: No; Do You Dip or Chew Tobacco: No; Hx Alcohol Use: No Hx Substance Use: No Preferred Language: Maltese Communication Ability: Effective Visual Impairment: Partially Limited School Business Administrator Required: No Beliefs That Will Affect Care: None marital status: / Current Living Situation: Family Current Living Situation Comment: granddaughter and family moved in 1 year ago current occupational status: retired How many Children do You have: 3 Feels Safe at Home: No Is there a partner from a previous relationship who is making you feel unsafe now?: No Diet: diabetic during the past year weight has: remained stable Assistive Devices: Oxygen - at Night Allergies Allergies Allergy/AdvReac Type Severity Reaction Status Date / Time Influenza Virus Vaccines Allergy Severe Shortness Verified 03/17/25 14:27 of breath ipratropium [From Combivent] Allergy Unknown On med Verified 03/17/25 14:27 list from [facility] atorvastatin AdvReac Intermediate Cramping Verified 03/17/25 14:27 of the Muscles simvastatin AdvReac Intermediate Cramping Verified 03/17/25 14:27 of the Muscles Home Meds Home Medications Medication Instructions Recorded Confirmed cholecalciferol (vitamin D3) 50 2,000 unit PO QAM 09/20/18 05/03/25 mcg (2,000 unit) capsule pravastatin 40 mg tablet 40 mg PO HS 09/20/18 05/03/25 aspirin 81 mg tablet,delayed 81 mg PO DAILY 06/20/21 05/03/25 release cetirizine 10 mg tablet 10 mg PO DAILY 06/20/21 05/03/25 cyanocobalamin (vitamin B-12) 500 500 mcg PO DAILY 03/28/22 05/03/25 mcg tablet (Vitamin B-12) acetaminophen 500 mg tablet 500 mg PO Q6H PRN Pain 09/17/24 05/03/25 sitagliptin 50 mg tablet 50 mg PO DAILY 09/17/24 05/03/25 benzonatate 100 mg capsule 100 mg PO TID PRN Cough 01/18/25 05/03/25 glipizide 5 mg tablet 2.5 mg PO QAM 01/18/25 05/03/25 Previous Rx's Medication Instructions Recorded dapagliflozin propanediol 10 mg 10 mg PO DAILY #90 tabs 10/01/24 tablet (Farxiga) pantoprazole 40 mg tablet,delayed 40 mg PO QAM #30 tabs 10/12/24 release furosemide 40 mg tablet 40 mg PO QAM #30 tabs 02/28/25 metoprolol tartrate 50 mg tablet 50 mg PO BID #60 tabs 02/28/25 potassium chloride 20 mEq 40 meq (2 x 20 mEq) PO DAILY #0 03/03/25 tablet,extended release tabs fluticasone 500 mcg-salmeterol 50 1 inh inhalation BID #60 ea 04/07/25 mcg/dose blistr powdr for inhalation (Advair Diskus) montelukast 10 mg tablet 10 mg PO HS #30 tabs 04/07/25 tiotropium bromide 2.5 2 puff inhalation DAILY #4 grams 04/07/25 mcg/actuation mist for inhalation hydralazine 50 mg tablet 50 mg PO TID #90 tabs 04/29/25 Results & Data (ED) Vital Signs Vital Signs - 24 hr 05/03/25 20:14 05/03/25 20:22 05/03/25 20:28 Temperature 36.5 C Temperature Source Temporal Artery Scan Pulse Rate 86 83 Pulse Rate from SpO2 Sensor Respiratory Rate 22 Blood Pressure 149/80 H Blood Pressure Mean 103 Pulse Oximetry 92 93 Oxygen Delivery Method Room Air Room Air Oxygen Flow Rate Sepsis Recent Fever Within 48 Hours No Sepsis New/Unexplained Change in Mental Status No Sepsis Action Taken by Nursing No Action Required 05/03/25 22:30 Temperature Temperature Source Pulse Rate 84 Pulse Rate from SpO2 Sensor 86 Respiratory Rate 18 Blood Pressure 165/98 H Blood Pressure Mean 120 Pulse Oximetry 97 Oxygen Delivery Method Nasal Cannula Oxygen Flow Rate 2 Sepsis Recent Fever Within 48 Hours Sepsis New/Unexplained Change in Mental Status Sepsis Action Taken by Nursing Laboratory Data 05/03/25 20:30 05/03/25 20:30 Lab Results 05/03/25 Range/Units 20:30 WBC 14.41 H (4.8-10.8) K/ul RBC 5.30 (4.70-6.10) M/uL Hgb 16.5 (14.0-18.0) g/dl Hct 49.1 (42.0-52.0) % MCV 92.6 (80.0-100.0) fL MCH 31.1 (25.0-34.0) pg MCHC 33.6 (32.0-36.0) g/dL RDW Std Deviation 56.7 H (36.4-46.3) fL RDW Coeff of Mark 16.7 H (11.5-14.5) % Plt Count 244 (130-400) K/uL MPV 9.4 (9.4-12.4) fL Immature Gran % (Auto) 0.6 % Neut % (Auto) 61.7 % Lymph % (Auto) 27.8 % Casey % (Auto) 6.0 % Eos % (Auto) 3.3 % Baso % (Auto) 0.6 % Neut # (Auto) 8.89 H (1.40-6.50) K/uL Lymph # (Auto) 4.01 H (1.20-3.40) K/uL Casey # (Auto) 0.87 H (0.11-0.59) K/uL Eos # (Auto) 0.47 (0.00-0.50) K/uL Baso # (Auto) 0.09 (0.00-0.20) K/uL Immature Gran # (Auto) 0.08 (0.01-0.20) K/uL Sodium 136 (136-145) mmol/L Potassium 3.6 (3.5-5.1) mmol/L Chloride 104 (98-107) mmol/L Carbon Dioxide 23 (21-32) mmol/L Anion Gap 9 (3-11) BUN 30 H (6-23) mg/dl Creatinine 2.47 H (0.6-1.4) mg/dl Est Cr Clr Drug Dosing 26.2 ml/min eGFR 25.71 BUN/Creatinine Ratio 12.1 (10-20) Glucose 173 H (70-99(Fasting)) mg/dl Calcium 9.7 (8.6-10.3) mg/dl Magnesium 2.2 (1.7-2.4) mg/dl Total Bilirubin 0.9 (0.2-1.0) mg/dl AST 15 (13-39) U/L ALT 11 (7-52) U/L Alkaline Phosphatase 76 (34-104) U/L Troponin I High Sens 10.3 (0-20) pg/ml B-Natriuretic Peptide 63 (0-100) pg/ml Total Protein 7.5 (6.0-8.3) gm/dl Albumin 3.6 (3.4-5.0) gm/dl Globulin 3.9 (2.5-4.0) gm/dl Albumin/Globulin Ratio 0.9 (0.9-2) Administered Medications Discontinued Medications Furosemide (Furosemide 40 Mg/4 Ml Vial) 40 mg IV ONE ONE Stop: 05/03/25 21:40 Last Admin: 05/03/25 22:12 Dose: 40 mg Documented By: JENNY Potassium Chloride (Potassium Chloride Crtab 20 Meq Tabcr) 40 meq PO NOW STA Stop: 05/04/25 00:08 Last Admin: 05/04/25 00:53 Dose: 40 meq Documented By: BRETT Imaging Data Radiologist's Impression: Chest X-Ray 05/03/25 20:22 Exam(s): XR CXR 1 VIEW EXAM: XR Chest, 1 View CLINICAL HISTORY: Reason for exam: SOB. TECHNIQUE: Frontal view of the chest. COMPARISON: 04/29/2025 FINDINGS: Lungs: No consolidation. No overt edema. Pleural space: No pleural effusion. No pneumothorax. Heart: Unremarkable. No cardiomegaly. IMPRESSION: No acute cardiopulmonary abnormality. Electronically signed by: Niko Mai MD 05/03/25 23:00 PM Discharge Plan Visit Data Chief Complaint: Shortness of Breath/Dyspnea Stated Complaint: BILAT LEG AND ABDOMINAL SWELLING/SOB ED Provider: Stacy Moscoso Discharge Problem: Bilateral edema of lower extremity, Dyspnea on exertion, CKD (chronic kidney disease), CHF (congestive heart failure) Patient Disposition: Admitted As Inpatient Condition: Fair Discharge Instructions Interventions: ED Discharge Assessment Last Done: 05/03/25 23:49
--- NOTE | 2025-05-03 22:57 | History & Physical Report ---
Date of Service May 03, 2025 Assessment & Plan (1) CHF (congestive heart failure): (2) Bilateral edema of lower extremity: (3) Dyspnea on exertion: (4) Stage 3b chronic kidney disease: Plan The patient is an 80-year-old male with a past medical history including bilateral lower extremity edema, hypertension, HFpEF, CKD, COPD, history of sepsis, peripheral eosinophilia, asthma-COPD overlap syndrome, hyperlipidemia, and history of proximal left ureteral calculus and hydronephrosis. The patient was recently admitted to [facility] from 04/26-04/29/2025, during which time to improve blood pressure control when he had his lisinopril discontinued, and was placed on hydralazine 50 mg p.o. 3 times daily. Since he has been home, he has had gradual worsening of lower extremity edema over the past week, and has become progressively more short of breath. In the emergency department, patient was given furosemide 40 mg IV, and was referred for evaluation for admission. CHF exacerbation/bilateral lower extremity edema- He has had improved blood pressure control, however, the change from lisinopril to hydralazine has likely resulted in increased lower extremity edema. Will change hydralazine from 50 mg 3 times daily to 25 mg 3 times daily, and increase metoprolol from 50 mg twice daily to 75 mg twice daily. Given furosemide 40 mg IV in ED Continue furosemide 40 mg IV every morning Most recent echocardiogram on 02/01/2025 with ejection fraction 60-65% Increase potassium chloride from 40 mill equivalents p.o. daily, given additional dose now CKD stage IIIb- Creatinine 2.47, with base 2.48 Follow serially Diabetes mellitus- Hold glipizide, sitagliptin, and Farxiga Placed on Accu-Cheks with NovoLog [facility] Check hemoglobin A1c Hyperlipidemia- Continue pravastatin and aspirin GERD- Continue pantoprazole Asthma-COPD overlap syndrome- Continue usual inhalers Continue montelukast History of Present Illness Chief Complaint: The patient presents to the emergency department with reaccumulation of lower extremity edema and shortness of breath after being discharged from the hospital after admission from 04/26-04/29. During admission, patient had medications adjusted with stoppage of lisinopril, and placed on hydralazine 50 mg p.o. 3 times daily to improve blood pressure control. He reports he continues to watch salt in his diet, and has had no other changes to explain the quick accumulation of the lower extremity edema and shortness of breath. Primary Care Provider: Juanita Carlson PA-C The patient is an 80-year-old male with a past medical history including bilateral lower extremity edema, hypertension, HFpEF, CKD, COPD, history of sepsis, peripheral eosinophilia, asthma-COPD overlap syndrome, hyperlipidemia, and history of proximal left ureteral calculus and hydronephrosis. The patient was recently admitted to [facility] from 04/26-04/29/2025, during which time to improve blood pressure control when he had his lisinopril discontinued, and was placed on hydralazine 50 mg p.o. 3 times daily. Since he has been home, he has had gradual worsening of lower extremity edema over the past week, and has become progressively more short of breath. In the emergency department, patient was given furosemide 40 mg IV, and was referred for evaluation for admission. Allergies Allergy/AdvReac Type Severity Reaction Status Date / Time Influenza Virus Vaccines Allergy Severe Shortness Verified 03/17/25 14:27 of breath ipratropium [From Combivent] Allergy Unknown On med Verified 03/17/25 14:27 list from [facility] atorvastatin AdvReac Intermediate Cramping Verified 03/17/25 14:27 of the Muscles simvastatin AdvReac Intermediate Cramping Verified 03/17/25 14:27 of the Muscles Home Medications Medication Instructions Recorded Confirmed Type cholecalciferol (vitamin D3) 50 2,000 unit PO QAM 09/20/18 05/03/25 History mcg (2,000 unit) capsule pravastatin 40 mg tablet 40 mg PO HS 09/20/18 05/03/25 History aspirin 81 mg tablet,delayed 81 mg PO DAILY 06/20/21 05/03/25 History release cetirizine 10 mg tablet 10 mg PO DAILY 06/20/21 05/03/25 History cyanocobalamin (vitamin B-12) 500 500 mcg PO DAILY 03/28/22 05/03/25 History mcg tablet (Vitamin B-12) acetaminophen 500 mg tablet 500 mg PO Q6H PRN Pain 09/17/24 05/03/25 History sitagliptin 50 mg tablet 50 mg PO DAILY 09/17/24 05/03/25 History dapagliflozin propanediol 10 mg 10 mg PO DAILY #90 tabs 10/01/24 05/03/25 Rx tablet (Farxiga) pantoprazole 40 mg tablet,delayed 40 mg PO QAM #30 tabs 10/12/24 05/03/25 Rx release benzonatate 100 mg capsule 100 mg PO TID PRN Cough 01/18/25 05/03/25 History glipizide 5 mg tablet 2.5 mg PO QAM 01/18/25 05/03/25 History furosemide 40 mg tablet 40 mg PO QAM #30 tabs 02/28/25 05/03/25 Rx metoprolol tartrate 50 mg tablet 50 mg PO BID #60 tabs 02/28/25 05/03/25 Rx potassium chloride 20 mEq 40 meq (2 x 20 mEq) PO DAILY #0 03/03/25 05/03/25 Rx tablet,extended release tabs fluticasone 500 mcg-salmeterol 50 1 inh inhalation BID #60 ea 04/07/25 05/03/25 Rx mcg/dose blistr powdr for inhalation (Advair Diskus) montelukast 10 mg tablet 10 mg PO HS #30 tabs 04/07/25 05/03/25 Rx tiotropium bromide 2.5 2 puff inhalation DAILY #4 grams 04/07/25 05/03/25 Rx mcg/actuation mist for inhalation hydralazine 50 mg tablet 50 mg PO TID #90 tabs 04/29/25 05/03/25 Rx Past Med/Surg History Problem List (Updated 05/03/25 @ 22:41 by Stacy Moscoso, ) CHF (congestive heart failure) (Acute) Dyspnea on exertion (Acute) Bilateral edema of lower extremity (Acute) Bilateral edema of lower extremity (Acute) GEOVANNI (acute kidney injury) (Acute) Hypokalemia Hypoxia (Acute) Chest pain (Acute) Hypertension (HFpEF) heart failure with preserved ejection fraction Acute diastolic (congestive) heart failure Bilateral edema of lower extremity (Acute) Leukocytosis Elevated INR CKD (chronic kidney disease) (Acute) SILVERIO (dyspnea on exertion) (Acute) COPD exacerbation (Acute) Anemia Lumbar back pain with radiculopathy affecting left lower extremity Intractable low back pain (Acute) Viral gastroenteritis Hypomagnesemia (Acute) Acute kidney injury superimposed on chronic kidney disease (Acute) Sepsis (Acute) Acute dyspnea (Acute) Contusion of left chest wall (Acute) Cough (Acute) Abrasion of knee, left (Acute) Chest wall contusion (Acute) Fall (Acute) Left-sided chest wall pain (Acute) Ex-smoker Alveolar emphysema of lung Peripheral eosinophilia Asthma-COPD overlap syndrome Proteinuria Vitamin D deficiency Coronavirus infection (Acute) Lab test negative for COVID-19 virus (Acute) Cough (Acute) Hypoxemia (Acute) Bronchitis (Acute) Acute exacerbation of chronic obstructive pulmonary disease (COPD) 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 (Acute) COVID Hyperlipidemia Substernal precordial chest pain (Acute) SOB (shortness of breath) (Acute) Mitral regurgitation Calculus of proximal left ureter (Acute) Hydronephrosis due to obstruction of ureter (Acute) Vision loss of left eye (Chronic) Medical History GEOVANNI (acute kidney injury) Acute bronchitis Flu-like symptoms SOB (shortness of breath) Hypoxia Hyperglycemia Acute hypoxic respiratory failure Type 2 diabetes mellitus Hypertension CHRISTIAN (obstructive sleep apnea) COPD (chronic obstructive pulmonary disease) CKD (chronic kidney disease) stage 3, GFR 30-59 ml/min Diabetes mellitus, type II Hypoxic Pneumonia due to COVID-19 virus Chest pain Acute kidney injury superimposed on CKD Cervical pain (neck) Pulmonary nodules Dyspnea on exertion Orthopnea Osteoarthritis Nephrolithiasis Surgical History Hx of cystoscopy STENT INSERTION AND NOW HAS CHRONIC PAIN IN LEFT LEG SINCE SURGERY H/O eye surgery RETINA REPAIR IN BOTH EYES Family History Father Congestive heart failure Mother Cancer Social History Smoking Status: Never smoker Tobacco Type: Cigarettes Second Hand Exposure: No; Do You Dip or Chew Tobacco: No; Hx Alcohol Use: No Hx Substance Use: No Preferred Language: Slovak Communication Ability: Effective Visual Impairment: Partially Limited Organ Tuner Required: No Beliefs That Will Affect Care: None marital status: / Current Living Situation: Family Current Living Situation Comment: granddaughter and family moved in 1 year ago current occupational status: retired How many Children do You have: 3 Feels Safe at Home: Yes Diet: diabetic during the past year weight has: remained stable Assistive Devices: None Review of Systems Review of Systems: The patient denies chest pain, palpitations, sore throat, fevers, chills, sweats, nausea, vomiting, diarrhea , constipation, abdominal pain, pelvic pain, blood in urine or stool, dysuria, urinary frequency or urgency, lightheadedness, dizziness, headache, loss of consciousness, rash, abnormal bruising or bleeding, focal weakness, numbness or tingling in arms or legs, generalized arthralgias or myalgias, back or neck pain, or night sweats. The review of systems is otherwise negative other than for that already noted above, and at least 10 systems have been reviewed. Physical Exam Physical Exam: The patient is awake, alert and oriented 3, well developed and well nourished, normocephalic and atraumatic, lying in bed and in no acute distress. HEENT--PERRL, EOMI, mucous membranes and oropharynx normal Neck--supple. No JVD. No bruits. Thyroid normal, trachea midline, no adenopathy. Heart--normal S1 and S2. No murmurs, rubs or gallops. Lungs-- crackles at the bases bilaterally Abdomen--normal bowel sounds and soft. Nontender. Nondistended Extremities--2+ bilateral pretibial pitting edema Dermatologic--normal skin turgor, normal color, no abnormal lymph nodes, no rash. Neurologic--cranial nerves II through XII grossly intact. Rheumatologic--normal range of motion. Psychiatric--normal affect. Results & Data Results & Data Vital Signs (Past 12 Hours) Vital Signs Temp Pulse Resp BP Pulse Ox O2 Del Method O2 Flow Rate 05/03/25 22:30 84 18 165/98 H 97 Nasal Cannula 2 05/03/25 20:28 83 05/03/25 20:22 93 Room Air 05/03/25 20:14 36.5 C 86 22 149/80 H 92 Room Air Laboratory Results Laboratory Results WBC 14.41 K/ul (4.8-10.8) H 05/03/25 20:30 RBC 5.30 M/uL (4.70-6.10) 05/03/25 20:30 Hgb 16.5 g/dl (14.0-18.0) 05/03/25 20:30 Hct 49.1 % (42.0-52.0) 05/03/25 20:30 MCV 92.6 fL (80.0-100.0) 05/03/25 20:30 MCH 31.1 pg (25.0-34.0) 05/03/25 20:30 MCHC 33.6 g/dL (32.0-36.0) 05/03/25 20: RDW Std Deviation 56.7 fL (36.4-46.3) H 05/03/25 20:30 RDW Coeff of Mark 16.7 % (11.5-14.5) H 05/03/25 20:30 Plt Count 244 K/uL (130-400) 05/03/25 20: MPV 9.4 fL (9.4-12.4) 05/03/25 20:30 Immature Gran % (Auto) 0.6 % 05/03/25 20:30 Neut % (Auto) 61.7 % 05/03/25 20:30 Lymph % (Auto) 27.8 % 05/03/25 20:30 Greer % (Auto) 6.0 % 05/03/25 20:30 Eos % (Auto) 3.3 % 05/03/25 20:30 Baso % (Auto) 0.6 % 05/03/25 20:30 Neut # (Auto) 8.89 K/uL (1.40-6.50) H 05/03/25 20:30 Lymph # (Auto) 4.01 K/uL (1.20-3.40) H 05/03/25 20:30 Greer # (Auto) 0.87 K/uL (0.11-0.59) H 05/03/25 20:30 Eos # (Auto) 0.47 K/uL (0.00-0.50) 05/03/25 20:30 Baso # (Auto) 0.09 K/uL (0.00-0.20) 05/03/25 20:30 Immature Gran # (Auto) 0.08 K/uL (0.01-0.20) 05/03/25 20:30 Sodium 136 mmol/L (136-145) 05/03/25 20:30 Potassium 3.6 mmol/L (3.5-5.1) 05/03/25 20:30 Chloride 104 mmol/L (98-107) 05/03/25 20:30 Carbon Dioxide 23 mmol/L (21-32) 05/03/25 20:30 Anion Gap 9 (3-11) 05/03/25 20:30 BUN 30 mg/dl (6-23) H 05/03/25 20:30 Creatinine 2.47 mg/dl (0.6-1.4) H 05/03/25 20:30 Est Cr Clr Drug Dosing 26.2 ml/min 05/03/25 20:30 eGFR 25.71 05/03/25 20:30 BUN/Creatinine Ratio 12.1 (10-20) 05/03/25 20:30 Glucose 173 mg/dl (70-99(Fasting)) H 05/03/25 20:30 Calcium 9.7 mg/dl (8.6-10.3) 05/03/25 20:30 Magnesium 2.2 mg/dl (1.7-2.4) 05/03/25 20:30 Total Bilirubin 0.9 mg/dl (0.2-1.0) 05/03/25 20:30 AST 15 U/L (13-39) 05/03/25 20:30 ALT 11 U/L (7-52) 05/03/25 20:30 Alkaline Phosphatase 76 U/L (34-104) 05/03/25 20:30 Troponin I High Sens 10.3 pg/ml (0-20) 05/03/25 20:30 B-Natriuretic Peptide 63 pg/ml (0-100) 05/03/25 20:30 Total Protein 7.5 gm/dl (6.0-8.3) 05/03/25 20:30 Albumin 3.6 gm/dl (3.4-5.0) 05/03/25 20:30 Globulin 3.9 gm/dl (2.5-4.0) 05/03/25 20:30 Albumin/Globulin Ratio 0.9 (0.9-2) 05/03/25 20:30 Impressions Chest X-Ray 05/03/25 20:22 Exam(s): XR CXR 1 VIEW EXAM: XR Chest, 1 View CLINICAL HISTORY: Reason for exam: SOB. TECHNIQUE: Frontal view of the chest. COMPARISON: 04/29/2025 FINDINGS: Lungs: No consolidation. No overt edema. Pleural space: No pleural effusion. No pneumothorax. Heart: Unremarkable. No cardiomegaly. IMPRESSION: No acute cardiopulmonary abnormality. Electronically signed by: Niko Mai MD 05/03/25 23:00 PM Code Status & VTE Plan Code Status DNR/DNI VTE Prophylaxis Plan VTE Prophylaxis will be ordered: Yes PG Care Time/CCT Total # of Minutes Spent Total Time Spent with Patient: Total time spent is greater than 50% in coordination of care (as documented) at patient's floor/unit and/or counseling patient: Coding Level of Care Code 87084 INT INP/OBS CARE 3/75MIN Diagnoses CHF (congestive heart failure) I50.9 Bilateral edema of lower extremity R60.0 Dyspnea on exertion R06.09 Stage 3b chronic kidney disease N18.32
--- NOTE | 2025-05-03 23:01 | XRay Report ---
Exam(s): XR CXR 1 VIEW EXAM: XR Chest, 1 View CLINICAL HISTORY: Reason for exam: SOB. TECHNIQUE: Frontal view of the chest. COMPARISON: 04/29/2025 FINDINGS: Lungs: No consolidation. No overt edema. Pleural space: No pleural effusion. No pneumothorax. Heart: Unremarkable. No cardiomegaly. IMPRESSION: No acute cardiopulmonary abnormality. Electronically signed by: Niko Mai MD 05/03/25 23:00 PM
[2025-05-04] MEDS ORDERED: CARBOHYDRATES FOR HYPOGLYCEMIA PO PRN (00:12)
[2025-05-04] MEDS ORDERED: BENZONATATE 100 MG CAPSULE PO PRN (00:12)
[2025-05-04] MEDS ORDERED: GLUCOSE 10 TAB/TUBE PO PRN (00:12)
[2025-05-04] MEDS ORDERED: GLUCAGON FOR INJ 1 MG VIAL SQ PRN (00:12)
[2025-05-04] MEDS ORDERED: GLUCOSE 40% GEL 15 GM TUBE PO PRN (00:12)
[2025-05-04] MEDS ORDERED: DEXTROSE 50% 50 ML SYRINGE IV PRN (00:12)
[2025-05-04] MEDS: POTASSIUM CHLORIDE CRTAB 20 MEQ TABCR PO STA (00:53)
[2025-05-04 06:18] LABS: Hematocrit (blood only) 52.6 % (42.0-52.0); Hemoglobin 17.7 g/dl (14.0-18.0); Immature Granulocytes # (auto) 0.09 K/uL (0.01-0.20); Immature Granulocytes % (auto) 0.8 %; Mean Corpuscular Hemoglobin 31.1 pg (25.0-34.0); Mean Corpuscular Volume 92.3 fL (80.0-100.0); Platelet Count 227 K/uL (130-400); RDW Standard Deviation 55.6 fL (36.4-46.3); Red Blood Count 5.70 M/uL (4.70-6.10); White Blood Count 11.87 K/ul (4.8-10.8)
[2025-05-04 07:00] LABS: Anion Gap 10.0 (3-11); Blood Urea Nitrogen 27.0 mg/dl (6-23); Calcium 9.9 mg/dl (8.6-10.3); Carbon Dioxide 25.0 mmol/L (21-32); Chloride 105.0 mmol/L (98-107); Creatinine Clr Calc Pharmacy 27.4 ml/min; Glucose 107.0 mg/dl (70-99(Fasting)); Magnesium 2.0 mg/dl (1.7-2.4); Potassium 3.5 mmol/L (3.5-5.1); Sodium 140.0 mmol/L (136-145)
[2025-05-04 08:23] LABS: Hemoglobin A1C 7.1 % (4.5-5.6)
[2025-05-04] MEDS: INSULIN ASPART PER UNIT CHARGE SC SCH (08:35)
[2025-05-04] MEDS: FLUTICASONE/VILANTEROL 100/25MCG 14 PUFFS/INHALER INH SCH (08:37)
[2025-05-04] MEDS: UMECLIDINIUM BROMIDE 62.5MCG/BLISTER 7 PUFFS/INHALER INH SCH (08:37)
[2025-05-04] MEDS: CHOLECALCIFEROL 25 MCG (1000 UNITS) TAB PO SCH (08:38)
[2025-05-04] MEDS: CETIRIZINE HCL 10 MG TABLET PO SCH (08:38)
[2025-05-04] MEDS: METOPROLOL TARTRATE 25 MG TAB PO SCH (08:38)
[2025-05-04] MEDS: CYANOCOBALAMIN (B-12) 500 MCG TABLET PO SCH (08:39)
[2025-05-04] MEDS: ASPIRIN 81 MG ECTAB PO SCH (08:39)
[2025-05-04] MEDS: HEPARIN SOD 5,000 UNIT/0.5 ML VIAL SQ SCH (08:42)
[2025-05-04] MEDS: POTASSIUM CHLORIDE CRTAB 20 MEQ TABCR PO SCH (08:42)
[2025-05-04] MEDS: FUROSEMIDE 40 MG/4 ML VIAL IV SCH (08:42)
[2025-05-04] MEDS: ACETAMINOPHEN 500 MG TAB PO PRN (08:56)
--- NOTE | 2025-05-04 18:18 | Hospitalist Progress Note ---
Date of Service May 04, 2025 Assessment & Plan (1) CHF (congestive heart failure): (2) Bilateral edema of lower extremity: (3) Dyspnea on exertion: (4) Stage 3b chronic kidney disease: Plan The patient is an 80-year-old male with a past medical history including bilateral lower extremity edema, hypertension, HFpEF, CKD, COPD, history of sepsis, peripheral eosinophilia, asthma-COPD overlap syndrome, hyperlipidemia, and history of proximal left ureteral calculus and hydronephrosis. The patient was recently admitted to [facility] from 04/26-04/29/2025, during which time to improve blood pressure control when he had his lisinopril discontinued, and was placed on hydralazine 50 mg p.o. 3 times daily. Since he has been home, he has had gradual worsening of lower extremity edema over the past week, and has become progressively more short of breath. In the emergency department, patient was given furosemide 40 mg IV, and was referred for evaluation for admission. CHF exacerbation/bilateral lower extremity edema- He has had improved blood pressure control, however, the change from lisinopril to hydralazine has likely resulted in increased lower extremity edema. Will change hydralazine from 50 mg 3 times daily to 25 mg 3 times daily, and increase metoprolol from 50 mg twice daily to 75 mg twice daily. Given furosemide 40 mg IV in ED Continue furosemide 40 mg IV every morning, worked well during last admission Most recent echocardiogram on 02/01/2025 with ejection fraction 60-65% Increase potassium chloride from 40 mill equivalents p.o. daily, given additional dose now Dietary consulted to educate pt on sodium restriction and heart failure diet CKD stage IIIb- Creatinine 2.47, with base 2.48 Follow serially Diabetes mellitus- Hold glipizide, sitagliptin, and Farxiga Placed on Accu-Cheks with NovoLog SSI Check hemoglobin A1c Hyperlipidemia- Continue pravastatin and aspirin GERD- Continue pantoprazole Asthma-COPD overlap syndrome- Continue usual inhalers Continue montelukast Admission and Anticipated Discharge Date Admission Date: May 03, 2025 Subjective No acute events overnight Currently stating he is not feeling well and not understanding why he is filling up with fluid. During conversations about diet modification, pt states that he does not add salt. During previous admission, discussed hidden sodium in food especially with cooking. Pt's granddaughter was making food for him and he stated that she does not follow salt restriction. He states he does not eat much but also states that he only eats what he makes or what his granddaughter makes. Review of Systems Review of Systems: Comprehensive ROS completed and is otherwise negative. Physical Exam Physical Exam: Gen: no acute distress, sitting in chair comfortable HEENT: NC/AT, MMM Lungs: nonlabored breathing, CTAB CVS: s1s2nl, RRR Abd: nl bowel sounds, soft, NT / ND : no vazquez Ext: 2+ pitting edema b/l LE Neuro: AAOx3 Psych: calm cooperative Results & Data Results & Data Vital Signs (Past 12 Hours) Vital Signs Temp Pulse Pulse Resp BP BP Pulse Ox 05/04/25 15:26 36.4 C L 59 L 16 126/73 94 05/04/25 14:33 63 05/04/25 11:31 36.3 C L 61 16 143/75 H 92 05/04/25 07:37 76 05/04/25 07:20 36.6 C 69 14 133/65 92 O2 Del Method 05/04/25 15:26 Room Air 05/04/25 14:33 05/04/25 11:31 Room Air 05/04/25 07:37 05/04/25 07:20 Room Air PG Care Time/CCT Total # of Minutes Spent Total Time Spent with Patient: Total time spent is greater than 50% in coordination of care (as documented) at patient's floor/unit and/or counseling patient: Coding Level of Care Code 09425 SUB INP/OBS CARE 2/35MIN Diagnoses CHF (congestive heart failure) I50.9 Bilateral edema of lower extremity R60.0 Dyspnea on exertion R06.09 Stage 3b chronic kidney disease N18.32
[2025-05-04] MEDS: MONTELUKAST SODIUM 10 MG TABLET PO SCH (20:47)
[2025-05-04] MEDS: PRAVASTATIN SOD 40 MG TAB PO SCH (20:47)
[2025-05-05 06:11] LABS: Hematocrit (blood only) 47.5 % (42.0-52.0); Hemoglobin 16.5 g/dl (14.0-18.0); Immature Granulocytes # (auto) 0.07 K/uL (0.01-0.20); Immature Granulocytes % (auto) 0.6 %; Mean Corpuscular Hemoglobin 31.9 pg (25.0-34.0); Mean Corpuscular Volume 91.9 fL (80.0-100.0); Platelet Count 231 K/uL (130-400); RDW Standard Deviation 53.7 fL (36.4-46.3); Red Blood Count 5.17 M/uL (4.70-6.10); White Blood Count 11.84 K/ul (4.8-10.8)
[2025-05-05 06:36] LABS: Anion Gap 8.0 (3-11); Blood Urea Nitrogen 31.0 mg/dl (6-23); Calcium 9.6 mg/dl (8.6-10.3); Carbon Dioxide 24.0 mmol/L (21-32); Chloride 103.0 mmol/L (98-107); Creatinine Clr Calc Pharmacy 27.8 ml/min; Glucose 150.0 mg/dl (70-99(Fasting)); Magnesium 2.1 mg/dl (1.7-2.4); Potassium 3.8 mmol/L (3.5-5.1); Sodium 135.0 mmol/L (136-145)
--- NOTE | 2025-05-05 08:55 | Hospitalist Progress Note ---
Date of Service May 05, 2025 Assessment & Plan (1) CHF (congestive heart failure): (2) Bilateral edema of lower extremity: (3) Dyspnea on exertion: (4) Stage 3b chronic kidney disease: Plan The patient is an 80-year-old male with a past medical history including bilateral lower extremity edema, hypertension, HFpEF, CKD, COPD, history of sepsis, peripheral eosinophilia, asthma-COPD overlap syndrome, hyperlipidemia, and history of proximal left ureteral calculus and hydronephrosis. The patient was recently admitted to [facility] from 04/26-04/29/2025, during which time to improve blood pressure control when he had his lisinopril discontinued, and was placed on hydralazine 50 mg p.o. 3 times daily. Since he has been home, he has had gradual worsening of lower extremity edema over the past week, and has become progressively more short of breath. In the emergency department, patient was given furosemide 40 mg IV, and was referred for evaluation for admission. #CHF exacerbation/bilateral lower extremity edema- - he reports improved swelling prior to discharge last time - s/p Lasix 40mg IV x2 doses without any improvement in weight - increase Lasix 40mg to 60mg IV daily, consider addition of prn metolazone for additional diuresis, given renal dysfunction, pt will likely need higher lasix dose at the time of discharge - cont home dose of Hydralazine and Metoprolol - strict I/Os, daily weights - place on 2g Na restriction and 1.8L fluid restriction - Echo on 02/01/2025 with ejection fraction 60-65% - cont KCl 40mEq daily, will give additional dose tonight - Dietary consulted to educate pt on sodium restriction and heart failure diet #CKD stage IIIb - baseline Cr until 02/2025 was around 1.6-1.7 - during admission in earlier in Apr, Cr was 2.16, increasing to 2.48 at the time of discharge - cont to monitor at this time #Diabetes mellitus- Hold glipizide, sitagliptin, and Farxiga Placed on Accu-Cheks with NovoLog SSI Check hemoglobin A1c #Hyperlipidemia- Continue pravastatin and aspirin #GERD- Continue pantoprazole #Asthma-COPD overlap syndrome- Continue usual inhalers Continue montelukast #DVT ppx - hep subq Admission and Anticipated Discharge Date Admission Date: May 03, 2025 Subjective No acute events overnight Currently stating he is feeling well. He noticed that his vision has improved. He also noted increased urine output after having electrolyte drink, however, he does not notice any change in his lower extremity edema. Review of Systems Review of Systems: Comprehensive ROS completed and is otherwise negative. Physical Exam Physical Exam: Gen: no acute distress, sitting in chair comfortable eating breakfast HEENT: NC/AT, MMM Lungs: nonlabored breathing, CTAB CVS: s1s2nl, RRR Abd: nl bowel sounds, soft, NT / ND : no vazquez Ext: 2+ pitting edema b/l LE (does not appear to have changed much) Neuro: AAOx3 Psych: calm cooperative Results & Data Results & Data Vital Signs (Past 12 Hours) Vital Signs Temp Pulse Pulse Resp BP BP Pulse Ox 05/05/25 08:01 36.3 C L 64 20 193/95 H 194/81 H 92 05/05/25 03:11 36.7 C 66 18 123/67 91 05/05/25 00:19 62 05/04/25 22:40 36.6 C 61 18 139/72 94 O2 Del Method 05/05/25 08:01 Room Air 05/05/25 03:11 Room Air 05/05/25 00:19 05/04/25 22:40 Room Air PG Care Time/CCT Total # of Minutes Spent Total Time Spent with Patient: Total time spent is greater than 50% in coordination of care (as documented) at patient's floor/unit and/or counseling patient: Coding Level of Care Code 68446 SUB INP/OBS CARE 3/50MIN Diagnoses CHF (congestive heart failure) I50.9 Bilateral edema of lower extremity R60.0 Dyspnea on exertion R06.09 Stage 3b chronic kidney disease N18.32
[2025-05-05] MEDS: FUROSEMIDE 40 MG/4 ML VIAL IV SCH (09:20)
[2025-05-05] MEDS: POTASSIUM CHLORIDE CRTAB 20 MEQ TABCR PO ONE (16:39)
--- NOTE | 2025-05-06 06:30 | Electrocardiogram Report ---
Test Reason : Blood Pressure : */* mmHG Vent. Rate : 85 BPM Atrial Rate : 85 BPM P-R Int : 224 ms QRS Dur : 122 ms QT Int : 386 ms P-R-T Axes : -13 -12 -11 degrees QTcB Int : 459 ms Sinus rhythm with 1st degree A-V block with Premature atrial complexes Right bundle branch block Inferior infarct (cited on or before 28-Oct-2024) Possible Anterior infarct (cited on or before 28-Oct-2024) Abnormal ECG When compared with ECG of 26-Apr-2025 00:24, Premature atrial complexes are now Present Confirmed by Ramses Stewart ([id number] on 05/06/2025 6:30:26 AM Referred By: REFERRED SELF Confirmed By: Ramses Stewart
[2025-05-06 06:53] LABS: Anion Gap 9.0 (3-11); Blood Urea Nitrogen 35.0 mg/dl (6-23); Calcium 9.6 mg/dl (8.6-10.3); Carbon Dioxide 23.0 mmol/L (21-32); Chloride 106.0 mmol/L (98-107); Creatinine Clr Calc Pharmacy 28.4 ml/min; Glucose 163.0 mg/dl (70-99(Fasting)); Magnesium 2.1 mg/dl (1.7-2.4); Potassium 4.0 mmol/L (3.5-5.1); Sodium 138.0 mmol/L (136-145)
--- NOTE | 2025-05-06 07:34 | Hospitalist Progress Note ---
Date of Service May 06, 2025 Assessment & Plan (1) Acute on chronic heart failure with preserved ejection fraction: (2) Bilateral edema of lower extremity: Plan in summary this is an 80-year-old male admitted for acute on chronic heart failure exacerbation likely secondary to inadequate outpatient diuresis this is previously diagnosed heart failure with preserved ejection fraction; most recent ejection fraction of 60 to 65% from 01/2025 consistent with HFpEF; at this time the patient's only complaint is her persistent lower extremity edema which has not improved since their hospital admission; their current rate of diuresis is 0.68 mL/kg/h; suspect this is likely consequential of significant gut edema leading to inadequate furosemide absorption, and thus an adequate diuresis; for this reason the patient be transition to bumetanide as detailed below; furthermore may have been exacerbated by initiation of hydralazine which is a venous dilating agent, we will transition him back to an alternative antihypertensive based on guideline directed medical therapy -Nursing to notify of new or increased oxygen requirement, sustained heart rate of greater than 120 or less than 50 bpm -Measure intake and output every shift -Start bumetanide 2 mg p.o. one-time to assess for adequate diuresis, anticipate continuing this in the outpatient setting -Start losartan 100 mg p.o. daily -Stop hydralazine -Follow daily RFP and Magnesium most recent hemoglobin A1c of 7.1% on 05/04; glycemic target of preprandial less than 140 and random checks less than 180; with holding the patient's home dapagliflozin and sitagliptin; we will discontinue the patient's glipizide given its significant risk for hypoglycemia in the setting of a well-controlled diabetic considering the patient's age - pharmacy consulted for glycemic management DVT PPx: heparin 5000 U SQ twice daily Admission and Anticipated Discharge Date Admission Date: May 03, 2025 Anticipated date of discharge: 05/07/25 Subjective Mr. Gardiner is an 80-year-old male whose active medical conditions include heart failure with preserved ejection fraction, hypertension, hyperlipidemia, CKD stage IIIb among other chronic medical conditions who was admitted to [facility] on 05/03 due to recurrent acute heart failure exacerbation with recent hospitalization at this medical facility and discharge. No acute overnight events. The patient endorses persistent lower extremity edema without significant diuresis during her hospitalization. They expressed frustration with regard to the lack of clarity of why their heart failure exacerbation recurred/was persistent. Review of Systems Review of Systems: Remaining review of constitutional, pulmonary, cardiovascular, gastrointestinal, genitourinary, musculoskeletal, neurologic, and integumentary systems was unremarkable except for pertinent positive and negative findings noted in the HPI above. Physical Exam Physical Exam: General: Adult male in no acute distress Vital Signs: reviewed HEENT: moist mucous membranes; pupils equally round react to light; extraocular motion intact; chronically appearing poor dentition Neck: no significant jugular venous distention at rest; positive hepatojugular reflux Pulmonary: symmetrically reduced chest wall excursion secondary to body habitus; diminished air movement the bases bilaterally without additional adventitious lung sounds Cardiovascular: regular rate and rhythm without murmurs, rubs, or gallops; S1 and S2 normal; bilateral posterior tibial and radial pulses 2+; 3+ pitting edema distal of the knee bilaterally Neurologic: CN II-XII grossly intact Results & Data Results & Data Vital Signs (Past 12 Hours) Vital Signs Temp Pulse Pulse Resp BP Pulse Ox O2 Del Method 05/06/25 03:00 37.0 C 62 20 127/75 93 Room Air 05/05/25 23:27 63 05/05/25 23:00 36.9 C 62 20 133/75 92 Room Air Laboratory Results no significant abnormalities noted; urine output measures approximately 0.68 mL/kg/h PG Care Time/CCT Total # of Minutes Spent Total Time Spent with Patient: Total time spent is greater than 50% in coordination of care (as documented) at patient's floor/unit and/or counseling patient: Coding Level of Care Code 38147 SUB INP/OBS CARE 2/35MIN Diagnoses Acute on chronic heart failure with preserved ejection fraction I50.33 Bilateral edema of lower extremity R60.0
[2025-05-06] MEDS: BUMETANIDE 1 MG TAB PO ONE (13:06)
[2025-05-06] MEDS: LOSARTAN POTASSIUM 50 MG TAB PO SCH (14:51)
[2025-05-07 06:29] LABS: Anion Gap 10.0 (3-11); Blood Urea Nitrogen 40.0 mg/dl (6-23); Calcium 9.4 mg/dl (8.6-10.3); Carbon Dioxide 24.0 mmol/L (21-32); Chloride 102.0 mmol/L (98-107); Creatinine Clr Calc Pharmacy 25.9 ml/min; Glucose 155.0 mg/dl (70-99(Fasting)); Magnesium 2.1 mg/dl (1.7-2.4); Potassium 3.5 mmol/L (3.5-5.1); Sodium 136.0 mmol/L (136-145)
[2025-05-07] MEDS: BUMETANIDE 1 MG TAB PO SCH (09:00)
[2025-05-07 11:39] VITALS: BP 151/73; PULSE 57; RESP 18; TEMP 97.5; O2SAT 94
--- NOTE | 2025-05-07 17:48 | Discharge Summary ---
Discharge Summary Date of Service May 07, 2025 Principal Dx & Hospital Course #1 = Principal Diagnosis (1) Acute on chronic heart failure with preserved ejection fraction: (2) Bilateral edema of lower extremity: Plan in summary this is an 80-year-old male admitted for acute on chronic heart failure exacerbation likely secondary to inadequate outpatient diuresis this is previously diagnosed heart failure with preserved ejection fraction; most recent ejection fraction of 60 to 65% from 01/2025 consistent with HFpEF; at this time the patient's only complaint is her persistent lower extremity edema which has not improved since their hospital admission; their current rate of diuresis is 0.68 mL/kg/h; suspect this is likely consequential of significant gut edema leading to inadequate furosemide absorption, and thus an adequate diuresis; for this reason the patient be transition to bumetanide as detailed below; furthermore may have been exacerbated by initiation of hydralazine which is a venous dilating agent, we will transition him back to an alternative antihypertensive based on guideline directed medical therapy -Nursing to notify of new or increased oxygen requirement, sustained heart rate of greater than 120 or less than 50 bpm -Measure intake and output every shift -Continue bumetanide 2 mg p.o. daily -Continue losartan 100 mg p.o. daily -Stop hydralazine most recent hemoglobin A1c of 7.1% on 05/04; glycemic target of preprandial less than 140 and random checks less than 180; with holding the patient's home dapagliflozin and sitagliptin; we will discontinue the patient's glipizide given its significant risk for hypoglycemia in the setting of a well-controlled diabetic considering the patient's age - pharmacy consulted for glycemic management Admission HPI Per Admitting Provider The patient is an 80-year-old male with a past medical history including bilateral lower extremity edema, hypertension, HFpEF, CKD, COPD, history of sepsis, peripheral eosinophilia, asthma-COPD overlap syndrome, hyperlipidemia, and history of proximal left ureteral calculus and hydronephrosis. The patient was recently admitted to [facility] from 04/26-04/29/2025, during which time to improve blood pressure control when he had his lisinopril discontinued, and was placed on hydralazine 50 mg p.o. 3 times daily. Since he has been home, he has had gradual worsening of lower extremity edema over the past week, and has become progressively more short of breath. In the emergency department, patient was given furosemide 40 mg IV, and was referred for evaluation for admission. Discharge Exam General: Adult male in no acute distress Vital Signs: reviewed HEENT: moist mucous membranes; pupils equally round react to light; extraocular motion intact; chronically appearing poor dentition Neck: no significant jugular venous distention at rest; positive hepatojugular reflux Pulmonary: symmetrically reduced chest wall excursion secondary to body habitus; diminished air movement the bases bilaterally without additional adventitious lung sounds Cardiovascular: regular rate and rhythm without murmurs, rubs, or gallops; S1 and S2 normal; bilateral posterior tibial and radial pulses 2+; 3+ pitting edema distal of the knee bilaterally Neurologic: CN II-XII grossly intact Discharge Plan Discharge Items Patient Disposition: Home - Self-Care Reason For Visit: CHF EXACERBATION, LE EDEMA Discharge Diagnosis: Acute on chronic heart failure exacerbation Condition on Discharge: Good Activity: Per Instructions section Non-emergency contact: Primary Care Provider and Zoo Keeper Call non-emergency contact if: you have any medication questions and your symptoms worsen Follow-up/Referrals: Juanita Carlson PA-C [Primary Care Provider] - [facility],Hospital [Non-Staff] - Diet: Low Fat and Low Sodium (2gm) Fluids: 1800ml (7 cups) Ambulatory Orders: Renal Function Panel (Routine) Timeframe: 3 Days Location: Determined by Patient Ordered By: Lavon Nielsen Attending Provider Instructions: In summary you were admitted to the [facility] due to a persistent heart failure exacerbation With respect to management of your chronic heart failure with preserved ejection fraction, we will transition from furosemide to bumetanide, which function similarly however has better gastrointestinal uptake resulting in more consistent diuresis which hopefully will reduce the need for future hospitalizations. Furthermore your previous hospitalization there was a transition from an EMILEE inhibitor/ARB to hydralazine, another form of blood pressure management. As this is a venous dilating medication, it may have also precipitated increased lower extremity swelling which was your primary concern upon presentation. This has been discontinued and you have been transition back to losartan 100 mg p.o. daily. With the changes in these medications, we have ordered a reassessment of your renal function to be obtained in the next 3 to 5 days after hospital discharge to ensure your kidney function is stable and tolerating these medications. Of note, in review of your medications for management of heart failure with preserved ejection fraction, it is noted that you are prescribed Toprol tartrate twice daily as opposed to metoprolol succinate once daily, would recommend discussion with your parliamentary counsel regarding transitioning of this medication as the latter is better evidence for primarily heart failure management rather than the former which is typically associated with rhythm control. Pending Studies at Discharge: No Stand-Alone Forms: [facility] Medications and DC Order Prescriptions: New bumetanide 2 mg tablet 2 mg PO DAILY 30 Days Qty: 30 0RF losartan 50 mg Tablet 100 mg PO QAM 30 Days Qty: 60 0RF Continued fluticasone propion-salmeterol [Advair Diskus] 500-50 mcg/dose blister with device 1 inh inhalation BID Qty: 60 4RF montelukast 10 mg tablet 10 mg PO HS Qty: 30 4RF tiotropium bromide 2.5 mcg/actuation mist 2 puff INHALATION DAILY Qty: 4 4RF cetirizine 10 mg tablet 10 mg PO DAILY aspirin 81 mg tablet,delayed release (DR/EC) 81 mg PO DAILY dapagliflozin propanediol [Farxiga] 10 mg tablet 10 mg PO DAILY Qty: 90 3RF Hold Instructions: please hold due to your kidney function level; only resume if your outpatient providers ask you to resume potassium chloride 20 mEq tablet extended release 40 meq PO DAILY Qty: 0 0RF cholecalciferol (vitamin D3) 2,000 unit Capsule 2,000 unit PO QAM pravastatin 40 mg Tablet 40 mg PO HS cyanocobalamin (vitamin B-12) [Vitamin B-12] 500 mcg Tablet 500 mcg PO DAILY acetaminophen 500 mg Tablet 500 mg PO Q6H PRN (Reason: Pain) sitagliptin 50 mg Tablet 50 mg PO DAILY pantoprazole 40 mg Tablet,Delayed Release (Dr/Ec) 40 mg PO QAM Qty: 30 0RF metoprolol tartrate 50 mg Tablet 50 mg PO BID Qty: 60 0RF benzonatate 100 mg Capsule 100 mg PO TID PRN (Reason: Cough) glipizide 5 mg Tablet 2.5 mg PO QAM Discontinued furosemide 40 mg Tablet 40 mg PO QAM Qty: 30 0RF hydralazine 50 mg Tablet 50 mg PO TID Qty: 90 0RF Discharge Orders: Discharge Order- CHF (Routine); Ordered 05/07/25 Ordered By: Lavon Glasgow/Other Patient Handouts: Heart Failure Meds, What Is Heart Failure, Coping with Heart Failure, Heart Failure Make Changes Diet, Heart Failure Post Hospital Admission Data Admit Date/Time: 05/03/25 22:56 Attending Provider: Lavon Henriquez Admit Provider: Fransico Vazquez Primary Care Provider: Juanita Carlson Other Providers: Fransico Vazquez; [facility] Other Interventions: Discharge Summary Assessment (RN) Last Done: 05/07/25 11:18 Hospital Stay Data Consultations 05/03/25 22:41 ED Decision to Admit Stat Pending Results Patient Have Any Pending Studies at Discharge: No Discharge Instructions Given to Patient (Per Discharging Provider) In summary you were admitted to the [facility] due to a persistent heart failure exacerbation With respect to management of your chronic heart failure with preserved ejection fraction, we will transition from furosemide to bumetanide, which function similarly however has better gastrointestinal uptake resulting in more consistent diuresis which hopefully will reduce the need for future hospitalizations. Furthermore your previous hospitalization there was a transition from an EMILEE inhibitor/ARB to hydralazine, another form of blood pressure management. As this is a venous dilating medication, it may have also precipitated increased lower extremity swelling which was your primary concern upon presentation. This has been discontinued and you have been transition back to losartan 100 mg p.o. daily. With the changes in these medications, we have ordered a reassessment of your renal function to be obtained in the next 3 to 5 days after hospital discharge to ensure your kidney function is stable and tolerating these medications. Of note, in review of your medications for management of heart failure with preserved ejection fraction, it is noted that you are prescribed Toprol tartrate twice daily as opposed to metoprolol succinate once daily, would recommend discussion with your parliamentary counsel regarding transitioning of this medication as the latter is better evidence for primarily heart failure management rather than the former which is typically associated with rhythm control. Total Time Total Time Spent Total Time Spent (In Minutes): 35 Coding Level of Care Code 91803 INP/OBS DISCH >30 MIN Diagnoses Acute on chronic heart failure with preserved ejection fraction I50.33 Bilateral edema of lower extremity R60.0
== END 2025-05-07 14:37 | disposition home or self-care (01) | DRG 291 ==
LOC: ED 20:10 → 4W 22:56 → SUATTDRO 22:56 → 4W 23:49

== ENCOUNTER 2025-08-20 12:01 | Inpatient (IN) ==
--- NOTE | 2025-08-20 12:45 | XRay Report ---
XR chest 1V portable CLINICAL HISTORY: Chest pain, nonspecific COMPARISON STUDY: Chest radiograph and chest CT July 30, 2025. FINDINGS: No pneumothorax or pleural effusion is present. Cardiomegaly is again noted. Interstitial t hickening is likely chronic. No consolidation to suggest pneumonia. No radiographic evidence for over t pulmonary edema. IMPRESSION: 1. No acute cardiopulmonary findings. No significant change in appearance of the chest. 2. Mild interstitial thickening, likely chronic. ACT 112: Negative or not required by law. Electronically signed by: Ethan Pearce M.D. 08/20/2025 12:44 PM
[2025-08-20 12:54] LABS: Hematocrit (blood only) 47.0 % (42.0-52.0); Hemoglobin 16.4 g/dL (14.0-18.0); Immature Granulocytes # (auto) 0.11 K/uL (0.01-0.20); Immature Granulocytes % (auto) 0.7 %; Mean Corpuscular Hemoglobin 32.7 pg (25.0-34.0); Mean Corpuscular Volume 93.8 fL (80.0-100.0); Platelet Count 211 K/uL (130-400); RDW Standard Deviation 59.7 fL (36.4-46.3); Red Blood Count 5.01 M/uL (4.70-6.10); White Blood Count 15.07 K/ul (4.8-10.8)
[2025-08-20 13:14] LABS: Alanine Aminotransferase 9.0 U/L (7-52); Albumin Globulin Ratio 1.2 (0.9-2); Albumin Level 3.6 gm/dl (3.4-5.0); Alkaline Phosphatase 85.0 U/L (34-104); Anion Gap 5.0 (3-11); Bilirubin,Total 1.2 mg/dl (0.2-1.0); Blood Urea Nitrogen 28.0 mg/dl (6-23); Calcium 9.0 mg/dl (8.6-10.3); Carbon Dioxide 29.0 mmol/L (21-32); Chloride 105.0 mmol/L (98-107); Creatinine Clr Calc Pharmacy 33.1 ml/min; Globulin 2.9 gm/dl (2.5-4.0); Glucose 119.0 mg/dl (70-99(Fasting)); Lipase 29.0 U/L (11-82); Potassium 3.7 mmol/L (3.5-5.1); Sodium 139.0 mmol/L (136-145); Total Protein 6.5 gm/dl (6.0-8.3)
[2025-08-20 13:48] LABS: Chlamydia pneumoniae PCR Not Detected (NotDetected); Coronavirus 229E PCR Not Detected (NotDetected); Coronavirus CoV-2 (COVID19)PCR Not Detected (NotDetected); Coronavirus HKU1 PCR Not Detected (NotDetected); Coronavirus NL63 PCR Not Detected (NotDetected); Coronavirus OC43PCR Not Detected (NotDetected); Human Metapneumovirus PCR Not Detected (NotDetected); Parainfluenza Virus 1 PCR Not Detected (NotDetected); Parainfluenza Virus 2 PCR Not Detected (NotDetected); Parainfluenza Virus 3 PCR Not Detected (NotDetected); Parainfluenza Virus 4 PCR Not Detected (NotDetected); Respiratory Syncytial VirusPCR Not Detected (NotDetected); Rhinovirus/Enterovirus PCR DETECTED (NotDetected)
[2025-08-20] MEDS: ALBUT/IPRATROP 3MG/0.5MG NEB 3 ML VIAL NEB STA (14:17)
[2025-08-20] MEDS: ALBUTEROL 0.083% NEBU SOLN 3 ML VIAL NEB STA (14:23)
[2025-08-20 14:41] LABS: Appearance Urine Clear (Clear); Glucose Urine UA 3+ (Negative)
--- NOTE | 2025-08-20 15:58 | Electrocardiogram Report ---
Test Reason : Blood Pressure : */* mmHG Vent. 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 rate has decreased by 43 bpm Confirmed by Ector Caballero ([id number]) on 08/20/2025 3:57:53 PM Referred By: Confirmed By: Ector Caballero
--- NOTE | 2025-08-20 16:16 | History & Physical Report ---
Date of Service August 20, 2025 Assessment & Plan (1) COPD exacerbation: Plan: No evidence of CHF or pneumonia on chest x-ray. No evidence of acute bronchitis on examination. Parenteral steroids and scheduled nebulizers empiric IV levofloxacin for now (2) Type 2 diabetes mellitus: Plan: ADA diet. Sliding scale coverage. Continue glipizide. Dapagliflozin and dulaglutide are on hold (3) CKD (chronic kidney disease) stage 3, GFR 30-59 ml/min: Plan: Stable. Monitor urine output. Serial labs (4) Hypertension: Plan: Stable on losartan, hydralazine, metoprolol. Will follow Plan Hopeful discharge back to his home in 2 to 3 days History of Present Illness Chief Complaint: Nonproductive cough, shortness of breath Primary Care Provider: Juanita Carlson PA-C 80-year-old white male with COPD, type 2 diabetes, hypertension, hyperlipidemia, chronic diastolic CHF, and chronic kidney disease stage III. He has had several days of steadily worsening shortness of breath nonproductive cough and wheezing. No hemoptysis and no fever. He came to the ED for evaluation. Chest x-ray is clear. Clinically he has exacerbation of his COPD. He is on room air. He received in the ED a DuoNeb treatment and parenteral steroid. He denies weight gain, denies orthopnea, denies onset of peripheral edema. He is admitted for further evaluation and treatment. Allergies Allergy/AdvReac Type Severity Reaction Status Date / Time Influenza Virus Vaccines Allergy Severe Shortness Verified 08/20/25 16:06 of breath ipratropium [From Combivent] Allergy Unknown On med Verified 08/20/25 16:06 list from [facility] atorvastatin AdvReac Intermediate Cramping Verified 08/20/25 16:06 of the Muscles simvastatin AdvReac Intermediate Cramping Verified 08/20/25 16:06 of the Muscles Home Medications Medication Instructions Recorded Confirmed Type cholecalciferol (vitamin D3) 50 2,000 unit PO QAM 09/20/18 08/20/25 History mcg (2,000 unit) capsule pravastatin 40 mg tablet 40 mg PO HS 09/20/18 08/20/25 History aspirin 81 mg tablet,delayed 81 mg PO DAILY 06/20/21 08/20/25 History release cetirizine 10 mg tablet 10 mg PO DAILY 06/20/21 08/20/25 History cyanocobalamin (vitamin B-12) 500 500 mcg PO DAILY 03/28/22 08/20/25 History mcg tablet (Vitamin B-12) acetaminophen 500 mg tablet 500 mg PO Q6H PRN Pain 09/17/24 08/20/25 History dapagliflozin propanediol 10 mg 10 mg PO DAILY #90 tabs 10/01/24 08/20/25 Rx tablet (Farxiga) glipizide 5 mg tablet 2.5 mg PO QAM 01/18/25 08/20/25 History potassium chloride 20 mEq 40 meq (2 x 20 mEq) PO DAILY #0 03/03/25 08/20/25 Rx tablet,extended release tabs bumetanide 2 mg tablet 2 mg PO DAILY 06/09/25 08/20/25 History dulaglutide 0.75 mg/0.5 mL 0.75 mg subcut WK 06/09/25 08/20/25 History subcutaneous pen injector metoprolol tartrate 100 mg tablet 100 mg PO BID #180 tabs 06/09/25 08/20/25 Rx hydralazine 25 mg tablet 25 mg PO TID #270 tabs 07/14/25 08/20/25 Rx fluticasone 500 mcg-salmeterol 50 1 inh inhalation BID #60 ea 07/16/25 08/20/25 Rx mcg/dose blistr powdr for inhalation (Advair Diskus) montelukast 10 mg tablet 10 mg PO HS #30 tabs 07/16/25 08/20/25 Rx tiotropium bromide 2.5 2 puff inhalation DAILY #4 grams 07/16/25 08/20/25 Rx mcg/actuation mist for inhalation losartan 100 mg tablet 100 mg PO DAILY #90 tabs 08/17/25 08/20/25 Rx Past Med/Surg History Problem List Upper airway cough syndrome Chronic cough Obesity Stage 3b chronic kidney disease CHF (congestive heart failure) (Acute) Dyspnea on exertion (Acute) Bilateral edema of lower extremity (Acute) Hypokalemia Hypoxia (Acute) Chest pain (Acute) Hypertension (HFpEF) heart failure with preserved ejection fraction Acute diastolic (congestive) heart failure Bilateral edema of lower extremity (Acute) Leukocytosis Elevated INR CKD (chronic kidney disease) (Acute) SILVERIO (dyspnea on exertion) (Acute) COPD exacerbation (Acute) Anemia Lumbar back pain with radiculopathy affecting left lower extremity Intractable low back pain (Acute) Viral gastroenteritis Hypomagnesemia (Acute) Acute kidney injury superimposed on chronic kidney disease (Acute) Sepsis (Acute) Acute dyspnea (Acute) Contusion of left chest wall (Acute) Cough (Acute) Abrasion of knee, left (Acute) Chest wall contusion (Acute) Fall (Acute) Left-sided chest wall pain (Acute) Ex-smoker Alveolar emphysema of lung Peripheral eosinophilia Proteinuria Vitamin D deficiency Coronavirus infection (Acute) Lab test negative for COVID-19 virus (Acute) Cough (Acute) Hypoxemia (Acute) Bronchitis (Acute) Acute exacerbation of chronic obstructive pulmonary disease (COPD) 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 (Acute) COVID Hyperlipidemia Substernal precordial chest pain (Acute) SOB (shortness of breath) (Acute) Mitral regurgitation Calculus of proximal left ureter (Acute) Hydronephrosis due to obstruction of ureter (Acute) Vision loss of left eye (Chronic) Medical History Acute on chronic heart failure with preserved ejection fraction Asthma-COPD overlap syndrome COPD (chronic obstructive pulmonary disease) Left breast mass GEOVANNI (acute kidney injury) Acute bronchitis Flu-like symptoms SOB (shortness of breath) Hypoxia Hyperglycemia Acute hypoxic respiratory failure Type 2 diabetes mellitus CHRISTIAN (obstructive sleep apnea) COPD (chronic obstructive pulmonary disease) CKD (chronic kidney disease) stage 3, GFR 30-59 ml/min Diabetes mellitus, type II Hypoxic Pneumonia due to COVID-19 virus Chest pain Acute kidney injury superimposed on CKD Cervical pain (neck) Pulmonary nodules Dyspnea on exertion Orthopnea Osteoarthritis Nephrolithiasis Surgical History Hx of cystoscopy H/O eye surgery Family History Father Congestive heart failure Mother Cancer Social History Smoking Status: Never smoker Tobacco Type: Cigarettes Second Hand Exposure: No; Do You Dip or Chew Tobacco: No; Hx Alcohol Use: No Hx Substance Use: No Preferred Language: Setswana Communication Ability: Effective Visual Impairment: Partially Limited 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 Steadily worsening shortness of breath over the past several days. No hemoptysis. Cardiacno palpitations, no chest pain, no syncope Adele nausea, vomiting, diarrhea, melena, hematochezia GUno urinary retention, no urinary incontinence, no dysuria, no hematuria Musculoskeletalno joint pain, no muscle tenderness Skinno bruising, no rashes, no pruritus Neurono isolated weakness, no paresthesia, no weakness Psychno depression, no anxiety Physical Exam 2 Physical Exam: General-alert and oriented x3, no fever, no chills HEENT-head atraumatic and normocephalic, pupils equal and reactive to light, extraocular muscles intact Neck-no lymphadenopathy or thyromegaly, trachea midline Chest-diminished breath sounds bilaterally. End expiratory wheezes bilaterally. No dullness to percussion. No inspiratory rales. Cardiacrate rate and rhythm, normal S1 and S2 Abdomen-normal bowel sounds, no hepatosplenomegaly Extremities-no cyanosis, clubbing, or edema Neuro-cranial nerves II through XII intact, motor and sensory function within normal limits, strength symmetrical, no focal deficits Psych-normal affect, normal mood Results & Data Results & Data Vital Signs (Past 12 Hours) Vital Signs Temp Pulse Pulse Resp BP BP Pulse Ox 08/20/25 14:00 62 17 171/84 H 92 08/20/25 13:01 92 08/20/25 12:48 62 08/20/25 12:14 95 08/20/25 12:14 08/20/25 12:03 36.5 C 66 18 164/77 H 90 O2 Del Method 08/20/25 14:00 Room Air 08/20/25 13:01 Room Air 08/20/25 12:48 08/20/25 12:14 Room Air 08/20/25 12:14 Room Air 08/20/25 12:03 Room Air Laboratory Results 08/20/25 12:12 08/20/25 12:12 Code Status & VTE Plan Code Status Full code PG Care Time/CCT Total # of Minutes Spent Total Time Spent with Patient: Total time spent is greater than 50% in coordination of care (as documented) at patient's floor/unit and/or counseling patient: Coding Level of Care Code 48900 INT INP/OBS CARE 3/75MIN Diagnoses COPD exacerbation J44.1 Type 2 diabetes mellitus E11.9 CKD (chronic kidney disease) stage 3, GFR 30-59 ml/min N18.30 Chronic kidney disease stage 3 subtype: unspecified whether 3a or 3b Hypertension I10 Hypertension type: unspecified (3) CKD (chronic kidney disease) stage 3, GFR 30-59 ml/min Chronic kidney disease stage 3 subtype: unspecified whether 3a or 3b Qualified Code(s): N18.30 - Chronic kidney disease, stage 3 unspecified (4) Hypertension Hypertension type: unspecified Qualified Code(s): I10 - Essential (primary) hypertension
--- NOTE | 2025-08-20 16:31 | Emergency Department Note ---
History of Present Illness General Chief complaint: Cardiac Assessment Stated complaint: CHEST TIGHTNESS, SOB, SX PAST COUPLE DAYS Time Seen by Provider: 08/20/25 12:20 Source: patient Mode of arrival: ambulatory Limitations: no limitations History of Present Illness 80-year-old white male with COPD, type 2 diabetes, hypertension, hyperlipidemia, chronic diastolic CHF, and chronic kidney disease stage III who presents with several days of worsening shortness of breath, nonproductive cough and wheezing. He does have a history of COPD and uses 2 maintenance inhalers at home. Also reports several weeks of sinus congestion. Denies any fevers, chills, chest pain, nausea, vomiting, abdominal pain. No lower extremity swelling. No history of DVT/PE. Home Medications Medication Instructions Recorded Confirmed Type cholecalciferol (vitamin D3) 50 2,000 unit PO QAM 09/20/18 08/20/25 History mcg (2,000 unit) capsule pravastatin 40 mg tablet 40 mg PO HS 09/20/18 08/20/25 History aspirin 81 mg tablet,delayed 81 mg PO DAILY 06/20/21 08/20/25 History release cetirizine 10 mg tablet 10 mg PO DAILY 06/20/21 08/20/25 History cyanocobalamin (vitamin B-12) 500 500 mcg PO DAILY 03/28/22 08/20/25 History mcg tablet (Vitamin B-12) acetaminophen 500 mg tablet 500 mg PO Q6H PRN Pain 09/17/24 08/20/25 History dapagliflozin propanediol 10 mg 10 mg PO DAILY #90 tabs 10/01/24 08/20/25 Rx tablet (Farxiga) glipizide 5 mg tablet 2.5 mg PO QAM 01/18/25 08/20/25 History potassium chloride 20 mEq 40 meq (2 x 20 mEq) PO DAILY #0 03/03/25 08/20/25 Rx tablet,extended release tabs bumetanide 2 mg tablet 2 mg PO DAILY 06/09/25 08/20/25 History dulaglutide 0.75 mg/0.5 mL 0.75 mg subcut WK 06/09/25 08/20/25 History subcutaneous pen injector metoprolol tartrate 100 mg tablet 100 mg PO BID #180 tabs 06/09/25 08/20/25 Rx hydralazine 25 mg tablet 25 mg PO TID #270 tabs 07/14/25 08/20/25 Rx fluticasone 500 mcg-salmeterol 50 1 inh inhalation BID #60 ea 07/16/25 08/20/25 Rx mcg/dose blistr powdr for inhalation (Advair Diskus) montelukast 10 mg tablet 10 mg PO HS #30 tabs 07/16/25 08/20/25 Rx tiotropium bromide 2.5 2 puff inhalation DAILY #4 grams 07/16/25 08/20/25 Rx mcg/actuation mist for inhalation losartan 100 mg tablet 100 mg PO DAILY #90 tabs 08/17/25 08/20/25 Rx Allergies Allergy/AdvReac Type Severity Reaction Status Date / Time Influenza Virus Vaccines Allergy Severe Shortness Verified 08/20/25 16:06 of breath ipratropium [From Combivent] Allergy Unknown On med Verified 08/20/25 16:06 list from [facility] atorvastatin AdvReac Intermediate Cramping Verified 08/20/25 16:06 of the Muscles simvastatin AdvReac Intermediate Cramping Verified 08/20/25 16:06 of the Muscles Past Med/Surg History Problem List (Updated 08/20/25 @ 18:58 by Samuel Otero MD) Rhinovirus (Acute) Upper airway cough syndrome Chronic cough Obesity Stage 3b chronic kidney disease CHF (congestive heart failure) (Acute) Dyspnea on exertion (Acute) Bilateral edema of lower extremity (Acute) Hypokalemia Hypoxia (Acute) Chest pain (Acute) Hypertension (HFpEF) heart failure with preserved ejection fraction Acute diastolic (congestive) heart failure Bilateral edema of lower extremity (Acute) Leukocytosis Elevated INR CKD (chronic kidney disease) (Acute) SILVERIO (dyspnea on exertion) (Acute) COPD exacerbation (Acute) Anemia Lumbar back pain with radiculopathy affecting left lower extremity Intractable low back pain (Acute) Viral gastroenteritis Hypomagnesemia (Acute) Acute kidney injury superimposed on chronic kidney disease (Acute) Sepsis (Acute) Acute dyspnea (Acute) Contusion of left chest wall (Acute) Cough (Acute) Abrasion of knee, left (Acute) Chest wall contusion (Acute) Fall (Acute) Left-sided chest wall pain (Acute) Ex-smoker Alveolar emphysema of lung Peripheral eosinophilia Proteinuria Vitamin D deficiency Coronavirus infection (Acute) Lab test negative for COVID-19 virus (Acute) Cough (Acute) Hypoxemia (Acute) Bronchitis (Acute) Acute exacerbation of chronic obstructive pulmonary disease (COPD) 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 (Acute) COVID Hyperlipidemia Substernal precordial chest pain (Acute) SOB (shortness of breath) (Acute) Mitral regurgitation Calculus of proximal left ureter (Acute) Hydronephrosis due to obstruction of ureter (Acute) Vision loss of left eye (Chronic) Medical History Acute on chronic heart failure with preserved ejection fraction Asthma-COPD overlap syndrome COPD (chronic obstructive pulmonary disease) Left breast mass GEOVANNI (acute kidney injury) Acute bronchitis Flu-like symptoms SOB (shortness of breath) Hypoxia Hyperglycemia Acute hypoxic respiratory failure Type 2 diabetes mellitus CHRISTIAN (obstructive sleep apnea) COPD (chronic obstructive pulmonary disease) CKD (chronic kidney disease) stage 3, GFR 30-59 ml/min Diabetes mellitus, type II Hypoxic Pneumonia due to COVID-19 virus Chest pain Acute kidney injury superimposed on CKD Cervical pain (neck) Pulmonary nodules Dyspnea on exertion Orthopnea Osteoarthritis Nephrolithiasis Surgical History Hx of cystoscopy H/O eye surgery Family History Father Congestive heart failure Mother Cancer Social History Smoking Status: Never smoker Tobacco Type: Cigarettes Second Hand Exposure: No; Do You Dip or Chew Tobacco: No; Hx Alcohol Use: No Hx Substance Use: No Preferred Language: Latvian Communication Ability: Effective Visual Impairment: Partially Limited Shop Manager Required: No Beliefs That Will Affect Care: None marital status: / Current Living Situation: Family Current Living Situation Comment: granddaughter and family moved in 1 year ago current occupational status: retired How many Children do You have: 3 Feels Safe at Home: Yes Diet: diabetic during the past year weight has: remained stable Assistive Devices: Cane, Nebulizer, Oxygen - at Night, Walker and Wheelchair Review of Systems Review of systems negative outside of positive findings mentioned in HPI. Physical Exam Vital Signs Vital Signs - 24 hr 08/20/25 12:03 08/20/25 12:14 08/20/25 12:14 Temperature 36.5 C Temperature Source Temporal Artery Scan Pulse Rate 66 Pulse Rate [Apical] Pulse Rhythm Regular Pulse Rhythm [Apical] Pulse Strength Normal Respiratory Rate 18 Respiratory Effort / Characteristics Non-Labored Respiratory Depth Normal Respiratory Pattern Regular Blood Pressure 164/77 H Blood Pressure [Left Arm] Blood Pressure Mean 106 Blood Pressure Mean [Left Arm] Blood Pressure Position Sitting Blood Pressure Position [Left Arm] Pulse Oximetry 90 95 Oxygen Delivery Method Room Air Room Air Room Air Sepsis Recent Fever Within 48 Hours No Sepsis New/Unexplained Change in Mental Status No Sepsis Action Taken by Nursing No Action Required 08/20/25 12:48 08/20/25 13:01 08/20/25 14:00 Temperature Temperature Source Pulse Rate 62 Pulse Rate [Apical] 62 Pulse Rhythm Pulse Rhythm [Apical] Regular Pulse Strength Respiratory Rate 17 Respiratory Effort / Characteristics Non-Labored Spontaneous Respiratory Depth Normal Respiratory Pattern Blood Pressure Blood Pressure [Left Arm] 171/84 H Blood Pressure Mean Blood Pressure Mean [Left Arm] 113 Blood Pressure Position Blood Pressure Position [Left Arm] Semi-fowlers Pulse Oximetry 92 92 Oxygen Delivery Method Room Air Room Air Sepsis Recent Fever Within 48 Hours Sepsis New/Unexplained Change in Mental Status Sepsis Action Taken by Nursing 08/20/25 16:24 08/20/25 16:54 08/20/25 18:00 Temperature Temperature Source Pulse Rate 80 Pulse Rate [Apical] 78 88 Pulse Rhythm Pulse Rhythm [Apical] Pulse Strength Respiratory Rate 22 24 Respiratory Effort / Characteristics Non-Labored Spontaneous Respiratory Depth Normal Respiratory Pattern Regular Blood Pressure Blood Pressure [Left Arm] 169/96 H 176/95 H Blood Pressure Mean Blood Pressure Mean [Left Arm] 120 122 Blood Pressure Position Blood Pressure Position [Left Arm] Pulse Oximetry 93 90 Oxygen Delivery Method Room Air Room Air Sepsis Recent Fever Within 48 Hours Sepsis New/Unexplained Change in Mental Status Sepsis Action Taken by Nursing See below Constitutional WD/WN, vitals as above ENMT external ear and nose normal, oropharynx normal Neck trachea midline, no thyromegaly Respiratory Expiratory wheezing and prolonged expiratory phase noted, no evidence of tachypnea or retractions Cardiovascular RRR, no murmur, no edema Heart Sounds: normal S1 and normal S2 Extremities: no calf tenderness and no edema Course Administered Medications Discontinued Medications Albuterol (Albut/Ipratrop 3mg/0.5mg Neb 3 Ml Vial) 3 ml NEB NOW STA; Protocol Stop: 08/20/25 14:00 Last Admin: 08/20/25 14:17 Dose: Not Given Documented By: TEZD Albuterol (Albuterol 0.083% Nebu Soln 3 Ml Vial) 2.5 mg NEB NOW STA; Protocol Stop: 08/20/25 14:01 Last Admin: 08/20/25 14:23 Dose: 2.5 mg Documented By: MAGEN Methylprednisolone (Methylprednisolone 125 Mg/2 Ml Vial) 125 mg IV NOW STA Stop: 08/20/25 14:00 Last Admin: 08/20/25 14:23 Dose: 125 mg Documented By: MAGEN Medical Decision Making Differential Diagnosis DDx includes but not limited to: COPD exacerbation, Viral URI, PNA, CHF exacerbation Medical Records Attestation: I reviewed the patient's medical records. Home Medications Current Medication List: was personally reviewed by me Laboratory Data Attestation: I reviewed the patient's lab results. 08/20/25 12:12 08/20/25 12:12 Lab Results 08/20/25 08/20/25 Range/Units 12:12 14:23 WBC 15.07 H (4.8-10.8) K/ul RBC 5.01 (4.70-6.10) M/uL Hgb 16.4 (14.0-18.0) g/dL Hct 47.0 (42.0-52.0) % MCV 93.8 (80.0-100.0) fL MCH 32.7 (25.0-34.0) pg MCHC 34.9 (32.0-36.0) g/dL RDW Std Deviation 59.7 H (36.4-46.3) fL RDW Coeff of Mark 17.7 H (11.5-14.5) % Plt Count 211 (130-400) K/uL MPV 9.2 L (9.4-12.4) fL Immature Gran % (Auto) 0.7 % Neut % (Auto) 68.6 % Lymph % (Auto) 22.0 % [place] % (Auto) 5.9 % Eos % (Auto) 2.4 % Baso % (Auto) 0.4 % Neut # (Auto) 10.34 H (1.40-6.50) K/uL Lymph # (Auto) 3.31 (1.20-3.40) K/uL [place] # (Auto) 0.89 H (0.11-0.59) K/uL Eos # (Auto) 0.36 (0.00-0.50) K/uL Baso # (Auto) 0.06 (0.00-0.20) K/uL Immature Gran # (Auto) 0.11 (0.01-0.20) K/uL D-Dimer 730 H* (0-500) ug/L FEU Sodium 139 (136-145) mmol/L Potassium 3.7 (3.5-5.1) mmol/L Chloride 105 (98-107) mmol/L Carbon Dioxide 29 (21-32) mmol/L Anion Gap 5 (3-11) BUN 28 H (6-23) mg/dl Creatinine 1.98 H (0.6-1.4) mg/dl Est Cr Clr Drug Dosing 33.1 ml/min eGFR 33.52 BUN/Creatinine Ratio 14.1 (10-20) Glucose 119 H (70-99(Fasting)) mg/dl Calcium 9.0 (8.6-10.3) mg/dl Total Bilirubin 1.2 H (0.2-1.0) mg/dl AST 15 (13-39) U/L ALT 9 (7-52) U/L Alkaline Phosphatase 85 (34-104) U/L Troponin I High Sens 8.3 (0-20) pg/ml Total Protein 6.5 (6.0-8.3) gm/dl Albumin 3.6 (3.4-5.0) gm/dl Globulin 2.9 (2.5-4.0) gm/dl Albumin/Globulin Ratio 1.2 (0.9-2) Lipase 29 (11-82) U/L Urine Color Yellow Urine Appearance Clear (Clear) Urine pH 6.0 (4.5-7.5) Ur Specific [place] 1.014 (1.000-1.030) Urine Protein Negative (Negative) Urine Glucose (UA) 3+ H (Negative) Urine Ketones Negative (Negative) Urine Blood Negative (Negative) Urine Nitrite Negative (Negative) Urine Bilirubin Negative (Negative) Urine Urobilinogen Negative (Negative) Ur Leukocyte Esterase Negative (Negative) Urine Comment Adenovirus (PCR) Not Detected (NotDetected) B. pertussis DNA (PCR) Not Detected (NotDetected) B.parapertussis DNA PCR Not Detected (NotDetected) C. pneumoniae DNA (PCR) Not Detected (NotDetected) Coronavirus OC43 (PCR) Not Detected (NotDetected) Coronavirus HKU1 (PCR) Not Detected (NotDetected) Coronavirus 229E (PCR) Not Detected (NotDetected) SARS-CoV-2 (PCR) Not Detected (NotDetected) Coronavirus NL63 (PCR) Not Detected (NotDetected) Human Metapneumovir PCR Not Detected (NotDetected) Influenza Type A (PCR) Not Detected (NotDetected) Influenza Type B (PCR) Not Detected (NotDetected) M. pneumoniae (PCR) Not Detected (NotDetected) Parainfluenza 1 (PCR) Not Detected (NotDetected) Parainfluenza 2 (PCR) Not Detected (NotDetected) Parainfluenza 3 (PCR) Not Detected (NotDetected) Parainfluenza 4 (PCR) Not Detected (NotDetected) RSV (PCR) Not Detected (NotDetected) Entero/Rhino (PCR) DETECTED A (NotDetected) Imaging Data Radiologist's Impression: Chest X-Ray 08/20/25 12:21 XR chest 1V portable CLINICAL HISTORY: Chest pain, nonspecific COMPARISON STUDY: Chest radiograph and chest CT July 30, 2025. FINDINGS: No pneumothorax or pleural effusion is present. Cardiomegaly is again noted. Interstitial thickening is likely chronic. No consolidation to suggest pneumonia. No radiographic evidence for overt pulmonary edema. IMPRESSION: 1. No acute cardiopulmonary findings. No significant change in appearance of the chest. 2. Mild interstitial thickening, likely chronic. ACT 112: Negative or not required by law. Electronically signed by: Ethan Pearce M.D. 08/20/2025 12:44 PM ECG Data Attestation: I personally reviewed and interpreted this ECG as follows: Indication: + SOB/dyspnea Rate (beats per minute): 65 Rhythm: + normal sinus ECG Intervals/blocks: + First degree AV block, + Right Bundle branch block and + Prolonged QT ECG [place]: + Normal ECG ST segments: + Normal ST segments ECG Findings: + Q waves Comparison ECG Date: from (08/29/2025) Change: no significant change MDM Narrative Patient is a 80-year-old male presents with several days of shortness of breath, wheezing, cough. Afebrile nontoxic-appearing here today. O2 sat ranged between 90 and 92% on room air. Wheezing noted on examination. Nebulizer treatment and IV Solu-Medrol was ordered while workup initiated. Lab work reviewed. Mild leukocytosis noted. No evidence of sepsis or new endorgan damage. Mild elevation in D-dimer. Low suspicion for PE per years criteria. Will hold on CT at this time as patient is extremely claustrophobic and would like to avoid CTA. No evidence of pneumonia noted on x-ray. Rhinovirus positive here today. Will hold on antibiotics at this time due to underlying viral illness with COPD exacerbation. Will admit for intermittent breathing treatments and management of his COPD exacerbation. Impression & Plan COPD exacerbation, Rhinovirus Discharge Plan Visit Data Chief Complaint: Cardiac Assessment Stated Complaint: CHEST TIGHTNESS, SOB, SX PAST COUPLE DAYS ED Provider: Samuel Otero Discharge Problem: COPD exacerbation, Rhinovirus Patient Disposition: Admitted As Inpatient Condition: Good Forms Stand Alone Forms: My [facility] Prescriptions Prescriptions: No Action hydralazine 25 mg tablet 25 mg PO TID Qty: 270 3RF cetirizine 10 mg tablet 10 mg PO DAILY aspirin 81 mg tablet,delayed release (DR/EC) 81 mg PO DAILY dapagliflozin propanediol [Farxiga] 10 mg tablet 10 mg PO DAILY Qty: 90 3RF Hold Instructions: please hold due to your kidney function level; only resume if your outpatient providers ask you to resume losartan 100 mg tablet 100 mg PO DAILY Qty: 90 3RF fluticasone propion-salmeterol [Advair Diskus] 500-50 mcg/dose blister with device 1 inh inhalation BID Qty: 60 7RF montelukast 10 mg tablet 10 mg PO HS Qty: 30 7RF tiotropium bromide 2.5 mcg/actuation mist 2 puff INHALATION DAILY Qty: 4 7RF potassium chloride 20 mEq tablet extended release 40 meq PO DAILY Qty: 0 0RF Rx Instructions: TWO TABLETS DAILY bumetanide 2 mg tablet 2 mg PO DAILY dulaglutide 0.75 mg/0.5 mL pen injector 0.75 mg subcut WK Rx Instructions: Sunday. metoprolol tartrate 100 mg tablet 100 mg PO BID Qty: 180 3RF cholecalciferol (vitamin D3) 2,000 unit Capsule 2,000 unit PO QAM pravastatin 40 mg Tablet 40 mg PO HS cyanocobalamin (vitamin B-12) [Vitamin B-12] 500 mcg Tablet 500 mcg PO DAILY acetaminophen 500 mg Tablet 500 mg PO Q6H PRN (Reason: Pain) glipizide 5 mg Tablet 2.5 mg PO QAM Referrals Referrals: Juanita Carlson PA-C [Primary Care Provider] -
[2025-08-20] MEDS ORDERED: CARBOHYDRATES FOR HYPOGLYCEMIA PO PRN (20:50)
[2025-08-20] MEDS ORDERED: GLUCAGON FOR INJ 1 MG VIAL SQ PRN (20:50)
[2025-08-20] MEDS ORDERED: ACETAMINOPHEN 325 MG TAB PO PRN (20:50)
[2025-08-20] MEDS ORDERED: GLUCOSE 10 TAB/TUBE PO PRN (20:50)
[2025-08-20] MEDS ORDERED: DEXTROSE 50% 50 ML SYRINGE IV PRN (20:50)
[2025-08-20] MEDS ORDERED: GLUCOSE 40% GEL 15 GM TUBE PO PRN (20:50)
[2025-08-20] MEDS: METOPROLOL TARTRATE 100 MG TAB PO SCH (22:05)
[2025-08-20] MEDS: MONTELUKAST SODIUM 10 MG TABLET PO SCH (22:05)
[2025-08-20] MEDS: PRAVASTATIN SOD 40 MG TAB PO SCH (22:06)
[2025-08-20] MEDS: INSULIN ASPART PER UNIT CHARGE SC SCH (22:07)
[2025-08-20] MEDS: ALBUT/IPRATROP 3MG/0.5MG NEB 3 ML VIAL NEB SCH (22:09)
[2025-08-20] MEDS: HEPARIN SOD 5,000 UNIT/0.5 ML VIAL SQ SCH (22:21)
[2025-08-21 07:48] LABS: Anion Gap 11.0 (3-11); Blood Urea Nitrogen 38.0 mg/dl (6-23); Calcium 9.2 mg/dl (8.6-10.3); Carbon Dioxide 24.0 mmol/L (21-32); Chloride 103.0 mmol/L (98-107); Creatinine Clr Calc Pharmacy 29.9 ml/min; Glucose 237.0 mg/dl (70-99(Fasting)); Potassium 4.2 mmol/L (3.5-5.1); Sodium 138.0 mmol/L (136-145)
[2025-08-21] MEDS: CHOLECALCIFEROL 25 MCG (1000 UNITS) TAB PO SCH (08:19)
[2025-08-21] MEDS: CETIRIZINE HCL 10 MG TABLET PO SCH (08:19)
[2025-08-21] MEDS: LOSARTAN POTASSIUM 50 MG TAB PO SCH (08:19)
[2025-08-21] MEDS: ASPIRIN 81 MG ECTAB PO SCH (08:19)
[2025-08-21] MEDS: glipiZIDE 5 MG TAB PO SCH (08:19)
[2025-08-21] MEDS: BUMETANIDE 1 MG TAB PO SCH (08:19)
[2025-08-21] MEDS: CYANOCOBALAMIN (B-12) 500 MCG TABLET PO SCH (08:20)
[2025-08-21] MEDS: POTASSIUM CHLORIDE CRTAB 20 MEQ TABCR PO SCH (08:20)
[2025-08-21 08:30] LABS: Hematocrit (blood only) 49.7 % (42.0-52.0); Hemoglobin 17.1 g/dL (14.0-18.0); Immature Granulocytes # (auto) 0.12 K/uL (0.01-0.20); Immature Granulocytes % (auto) 1.0 %; Mean Corpuscular Hemoglobin 32.1 pg (25.0-34.0); Mean Corpuscular Volume 93.4 fL (80.0-100.0); Platelet Count 226 K/uL (130-400); RDW Standard Deviation 59.3 fL (36.4-46.3); Red Blood Count 5.32 M/uL (4.70-6.10); White Blood Count 12.60 K/ul (4.8-10.8)
[2025-08-21] MEDS ORDERED: INSULIN HUMAN NPH SC ONE (11:04)
--- NOTE | 2025-08-21 11:23 | Hospitalist Progress Note ---
Date of Service August 21, 2025 Assessment & Plan (1) COPD exacerbation: Plan: No evidence of CHF or pneumonia on admission chest x-ray. No evidence of acute bronchitis on examination. Parenteral steroids and scheduled nebulizers and empiric IV levofloxacin appear to have helped quite a bit. (2) Type 2 diabetes mellitus: Plan: ADA diet. Sliding scale coverage. Continue glipizide. Dapagliflozin and dulaglutide are on hold. Parenteral steroid therapy has resulted in hyperglycemia which is not unexpected. Continue sliding scale coverage. NPH insulin x 1 today, August 21 (3) CKD (chronic kidney disease) stage 3, GFR 30-59 ml/min: Plan: Stable. Monitor urine output. Serial labs (4) Hypertension: Plan: Stable on losartan, hydralazine, metoprolol. Will follow Plan Hopeful discharge back to his home in 1-2 days Admission and Anticipated Discharge Date Admission Date: August 20, 2025 Subjective Alert and oriented. No distress. He states he is feeling better. Wheezing has resolved. Hyperglycemia is due to parenteral steroid therapy. Will give 1 dose of NPH insulin today in addition to his sliding scale coverage. Review of Systems 2 Review of Systems: Constitutionalno fever or chills ENTno blurred vision, no double vision, no epistaxis, no sore throat Respiratorynonproductive cough. No shortness of breath at rest. No hemoptysis. Cardiacno palpitations, no chest pain, no syncope Adele nausea, vomiting, diarrhea, melena, hematochezia GUno urinary retention, no urinary incontinence, no dysuria, no hematuria Musculoskeletalno joint pain, no muscle tenderness Skinno bruising, no rashes, no pruritus Neurono isolated weakness, no paresthesia, no weakness Psychno depression, no anxiety Physical Exam 2 Physical Exam: General-alert and oriented x3, no fever, no chills HEENT-head atraumatic and normocephalic, pupils equal and reactive to light, extraocular muscles intact Neck-no lymphadenopathy or thyromegaly, trachea midline Chest-diminished breath sounds bilaterally. End expiratory wheezes have resolved. No dullness to percussion. No inspiratory rales. Cardiacrate rate and rhythm, normal S1 and S2 Abdomen-normal bowel sounds, no hepatosplenomegaly Extremities-no cyanosis, clubbing, or edema Neuro-cranial nerves II through XII intact, motor and sensory function within normal limits, strength symmetrical, no focal deficits Psych-normal affect, normal mood Results & Data Results & Data Vital Signs (Past 12 Hours) Vital Signs Temp Pulse Pulse Resp BP Pulse Ox O2 Del Method 08/21/25 10:30 Room Air 08/21/25 07:35 36.5 C 84 19 139/78 90 Room Air 08/21/25 06:58 79 17 92 Nasal Cannula 08/21/25 05:31 88 08/21/25 00:52 108 H 08/21/25 00:47 Room Air 08/21/25 00:47 36.3 C L 108 H 20 136/81 93 Room Air 08/21/25 00:16 109 H 18 112/77 94 Room Air Laboratory Results 08/21/25 08:12 08/21/25 06:57 PG Care Time/CCT Total # of Minutes Spent Total Time Spent with Patient: Total time spent is greater than 50% in coordination of care (as documented) at patient's floor/unit and/or counseling patient: Coding Level of Care Code 10192 SUB INP/OBS CARE 3/50MIN Diagnoses COPD exacerbation J44.1 Type 2 diabetes mellitus E11.9 CKD (chronic kidney disease) stage 3, GFR 30-59 ml/min N18.30 Chronic kidney disease stage 3 subtype: unspecified whether 3a or 3b Hypertension I10 Hypertension type: unspecified (3) CKD (chronic kidney disease) stage 3, GFR 30-59 ml/min Chronic kidney disease stage 3 subtype: unspecified whether 3a or 3b Qualified Code(s): N18.30 - Chronic kidney disease, stage 3 unspecified (4) Hypertension Hypertension type: unspecified Qualified Code(s): I10 - Essential (primary) hypertension
[2025-08-21] MEDS: NovoLIN-N (NPH) PER UNIT CHARGE SQ ONE (12:24)
[2025-08-22 06:23] LABS: Hematocrit (blood only) 49.0 % (42.0-52.0); Hemoglobin 16.8 g/dL (14.0-18.0); Immature Granulocytes # (auto) 0.18 K/uL (0.01-0.20); Immature Granulocytes % (auto) 1.0 %; Mean Corpuscular Hemoglobin 32.2 pg (25.0-34.0); Mean Corpuscular Volume 93.9 fL (80.0-100.0); Platelet Count 238 K/uL (130-400); RDW Standard Deviation 59.8 fL (36.4-46.3); Red Blood Count 5.22 M/uL (4.70-6.10); White Blood Count 18.43 K/ul (4.8-10.8)
[2025-08-22 07:38] LABS: Anion Gap 12.0 (3-11); Calcium 9.5 mg/dl (8.6-10.3); Carbon Dioxide 22.0 mmol/L (21-32); Chloride 102.0 mmol/L (98-107); Potassium 4.6 mmol/L (3.5-5.1); Sodium 136.0 mmol/L (136-145)
[2025-08-22 07:48] LABS: Blood Urea Nitrogen 53.0 mg/dl (6-23); Creatinine Clr Calc Pharmacy 27.4 ml/min; Glucose 387.0 mg/dl (70-99(Fasting))
[2025-08-22 07:56] VITALS: TEMP 97.5
[2025-08-22] MEDS: NovoLIN-N (NPH) PER UNIT CHARGE SC ONE (09:03)
--- NOTE | 2025-08-22 10:57 | Discharge Summary ---
Discharge Summary Date of Service August 22, 2025 Principal Dx & Hospital Course #1 = Principal Diagnosis (1) COPD exacerbation: No evidence of CHF or pneumonia on admission chest x-ray. No evidence of acute bronchitis on examination. Treated while hospitalized with parenteral steroids, scheduled nebulizers and empiric IV levofloxacin. Much improved. (2) Type 2 diabetes mellitus: ADA diet. Sliding scale coverage. Continue glipizide. Dapagliflozin and dulaglutide are on hold. These will be restarted at discharge. He has some flushing of his face and neck from the parenteral steroids. Glucose has increased with parenteral steroid therapy as expected. This will gradually return to his baseline. Treated while hospitalized with sliding scale coverage. NPH insulin x 1 again todayAugust 22 (3) CKD (chronic kidney disease) stage 3, GFR 30-59 ml/min: Stable. Monitor urine output. Serial labs (4) Hypertension: Stable on losartan, hydralazine, metoprolol. Will follow Plan Home todayAugust 22 Admission HPI Per Admitting Provider 80-year-old white male with COPD, type 2 diabetes, hypertension, hyperlipidemia, chronic diastolic CHF, and chronic kidney disease stage III. He has had several days of steadily worsening shortness of breath nonproductive cough and wheezing. No hemoptysis and no fever. He came to the ED for evaluation. Chest x-ray is clear. Clinically he has exacerbation of his COPD. He is on room air. He received in the ED a DuoNeb treatment and parenteral steroid. He denies weight gain, denies orthopnea, denies onset of peripheral edema. He is admitted for further evaluation and treatment. Discharge Exam General-alert and oriented x3, no fever, no chills HEENT-head atraumatic and normocephalic, pupils equal and reactive to light, e xtraocular muscles intact Neck-no lymphadenopathy or thyromegaly, trachea midline Chest-diminished breath sounds bilaterally. End expiratory wheezes have resolved. No dullness to percussion. No inspiratory rales. Cardiacrate rate and rhythm, normal S1 and S2 Abdomen-normal bowel sounds, no hepatosplenomegaly Extremities-no cyanosis, clubbing, or edema Neuro-cranial nerves II through XII intact, motor and sensory function within normal limits, strength symmetrical, no focal deficits Psych-normal affect, normal mood Discharge Plan Discharge Items Patient Disposition: Home - Self-Care Reason For Visit: EXAC COPD Discharge Diagnosis: Exacerbation COPD Condition on Discharge: Good Activity: Resume your previous activity Non-emergency contact: Primary Care Provider Call non-emergency contact if: your symptoms worsen Follow-up/Referrals: Juanita Carlson PA-C [Primary Care Provider] - Diet: Carb Consistent or DM2 Addtl Attending Provider Instructions: Take Levaquin 500 milligrams daily for 5 days. Take prednisone 10 mg 3 times a day for 2 days, then 10 mg twice a day for 2 days, then 10 mg once a day for 2 days, then stop. All other medications remain the same. Prescriptions have been sent to your [facility] pharmacy. Follow-up with primary care provider soon as possible. Pending Studies at Discharge: No Stand-Alone Forms: [facility] [employer], Smoking Cessation Medications and DC Order Prescriptions: New prednisone 10 mg tablet See Rx Instructions .ROUTE .COMPLEX Qty: 12 0RF Rx Instructions: 10 mg orally 3 times a day for 2 days, then 10 mg twice a day for 2 days, then 10 mg once a day for 2 days, then stop levofloxacin 500 mg tablet 500 mg PO DAILY 5 Days Qty: 5 0RF Continued hydralazine 25 mg tablet 25 mg PO TID Qty: 270 3RF cetirizine 10 mg tablet 10 mg PO DAILY aspirin 81 mg tablet,delayed release (DR/EC) 81 mg PO DAILY dapagliflozin propanediol [Farxiga] 10 mg tablet 10 mg PO DAILY Qty: 90 3RF Hold Instructions: please hold due to your kidney function level; only resume if your outpatient providers ask you to resume losartan 100 mg tablet 100 mg PO DAILY Qty: 90 3RF fluticasone propion-salmeterol [Advair Diskus] 500-50 mcg/dose blister with device 1 inh inhalation BID Qty: 60 7RF montelukast 10 mg tablet 10 mg PO HS Qty: 30 7RF tiotropium bromide 2.5 mcg/actuation mist 2 puff INHALATION DAILY Qty: 4 7RF potassium chloride 20 mEq tablet extended release 40 meq PO DAILY Qty: 0 0RF Rx Instructions: TWO TABLETS DAILY bumetanide 2 mg tablet 2 mg PO DAILY dulaglutide 0.75 mg/0.5 mL pen injector 0.75 mg subcut WK Rx Instructions: Wednesday. metoprolol tartrate 100 mg tablet 100 mg PO BID Qty: 180 3RF cholecalciferol (vitamin D3) 2,000 unit Capsule 2,000 unit PO QAM pravastatin 40 mg Tablet 40 mg PO HS cyanocobalamin (vitamin B-12) [Vitamin B-12] 500 mcg Tablet 500 mcg PO DAILY acetaminophen 500 mg Tablet 500 mg PO Q6H PRN (Reason: Pain) glipizide 5 mg Tablet 2.5 mg PO QAM Discharge Orders: Discharge Order (Routine); Ordered 08/22/25 Ordered By: Jose Rueda Admission Data Admit Date/Time: 08/20/25 16:06 Attending Provider: Jose Rueda Admit Provider: Jose Rueda Primary Care Provider: Juanita Carlson Other Providers: Jose Rueda; [facility] Hospital Stay Data Consultations 08/20/25 15:46 ED Decision to Admit Stat 08/20/25 16:21 ED Decision to Admit Stat Pending Results Patient Have Any Pending Studies at Discharge: No Discharge Instructions Given to Patient (Per Discharging Provider) Take Levaquin 500 milligrams daily for 5 days. Take prednisone 10 mg 3 times a day for 2 days, then 10 mg twice a day for 2 days, then 10 mg once a day for 2 days, then stop. All other medications remain the same. Prescriptions have been sent to your [facility] pharmacy. Follow-up with primary care provider soon as possible. Total Time Total Time Spent Total Time Spent (In Minutes): 45 minutes. Total time included patient exam, discharge planning, medication reconciliation Coding Level of Care Code 60417 INP/OBS DISCH >30 MIN Diagnoses COPD exacerbation J44.1 Type 2 diabetes mellitus E11.9 CKD (chronic kidney disease) stage 3, GFR 30-59 ml/min N18.30 Chronic kidney disease stage 3 subtype: unspecified whether 3a or 3b Hypertension I10 Hypertension type: unspecified
[2025-08-22 11:40] VITALS: PULSE 68; RESP 19; O2SAT 93
[2025-08-22 13:24] VITALS: BP 129/73
[2025-08-22] MEDS ORDERED: ALBUT/IPRATROP 3MG/0.5MG NEB 3 ML VIAL NEB SCH (19:00)
== END 2025-08-22 13:56 | disposition home or self-care (01) | DRG 191 ==
LOC: SUATTDRO → ED 12:01 → EDINP 16:06 → 2W 20:50